=== PATIENT | female | born 1975 | race Caucasian/White ===

== ENCOUNTER 2017-08-15 08:57 | Outpatient (RCR) | payer MEDICAID, SELFPAY ==
[2017-08-15 10:12] VITALS: BP 113/80; PULSE 76; RESP 20; TEMP 36.5
--- NOTE | 2017-08-15 17:49 | PCM.WC.PN ---
Type of Wound Date of Service: 08/15/17 Chief Complaint: Nonhealing recurrent ulcer right medial thigh. History of Wound: 42 year old woman presents with a nonhealing recurrent ulcer right medial thigh. She denies any trauma. She denies any fever. She has pain in the area of the ulcer when it is bumped. She was last seen on 06/19/17 as the ulcer had healed. A wound culture was done on 06/05/17. The culture was negative. Progress of Wound: Recurrent ulcer. - Physical Exam Vital Signs Temp Pulse Resp BP 97.7 F L 76 20 H 113/80 08/15/17 10:12 08/15/17 10:12 08/15/17 10:12 08/15/17 10:12 Wound Measurements and Assessment WC - Nurse 1 - General Ulcer Measurement Start: 08/15/17 10:05 Freq: Status: Active Protocol: Activity Type Activity Date Activity User E-Sign Co-Sign Detail Recorded Client Recorded Date Recorded By Document 08/15/17 10:12 RB [id number] 08/15/17 10:18 RB 08/15/17 10:12 Wound Center Nurse 1 [Ulcer Assessment Protocol: WC.WD.LOC] #3 RT MEDIAL THIGH -Combined with other wound No -Current Size (cm) - Length 3.5 -Current Size (cm) - Width 2.1 -Current Size (cm) - Depth 0.3 -Total Square Cm 7.35 -Photo Taken Yes -Epithelialization Small 1-33% -Tunneling No -Undermining/Tunneling No -Circular Undermining No -Classification - Thickness Full Thickness without Exposed Support Structure -Exudate Amt Small (1-33%) -Exudate Type Serosanguineous -Wound Margin Distinct, Outline Attached -Granulation Amt Medium (34-66%) -Granulation Quality [place] -Necrosis Amt Medium (34-66%) -Necrotic Tissue Type Adherent Slough -Structure Exposed N/A -Texture (Sarah-wound Skin Appearance) Assessed -Moisture (Sarah-wound Skin Appearance Assessed ) -Color (Sarah-wound Skin Appearance) Assessed -Temperature (Sarah-wound Skin No Abnormality Appearance) (Pt Warm) -Tenderness on Palpation (Sarah-wound No Skin Appearance) -Ulcer Cleansing Rinsed/ Irrigated with Saline -Foul Odor after Cleansing No -Anesthetic Used 4% Lidocaine Solution WC - Nurse 2 - General Ulcer CM Notes Start: 08/15/17 10:05 Freq: Status: Active Protocol: Activity Type Activity Date Activity User E-Sign Co-Sign Detail Recorded Client Recorded Date Recorded By Document 08/15/17 11:03 [id number] 08/15/17 11:06 XANDER 08/15/17 11:03 Wound Center Nurse 2 [Procedure/Treatment] -Time 11:05 -Correct Patient Yes -Correct Side, Site, Position Yes -Correct Procedure Yes -Procedure Performed Yes -Type of Procedure Debridement -Clinical Debridement Subcutaneous -Post Debridement Size (cm) - Length 3.5 -Post Debridement Size (cm) - Width 2.2 -Post Debridement Size (cm) - Depth 0.3 -Total Square Cm 7.70 -Wound/Ulcer Outcome Not Healed -Ulcer Cleansing Rinsed/ Irrigated with Saline -Foul Odor after Cleansing No -Bioengineered Tissue No -Cetacaine [place] No -Bleeding Controlled with Pressure -Treatment Response Procedure Tolerated Well [See Physician Procedure note for Specifics] Pain Scale: 0-10 Numeric [Pain] -Is Patient Pain Free? Yes Debridement Note Post-Debridement Measurements/Treatment - Nurse 2 - General Ulcer CM Notes Start: 08/15/17 10:05 Freq: Status: Active Protocol: Activity Type Activity Date Activity User E-Sign Co-Sign Detail Recorded Client Recorded Date Recorded By Document 08/15/17 11:03 [id number] 08/15/17 11:06 XANDER 08/15/17 11:03 Wound Center Nurse 2 #3 RT MEDIAL THIGH -Time 11:05 -Correct Patient Yes -Correct Side, Site, Position Yes -Correct Procedure Yes -Procedure Performed Yes -Type of Procedure Debridement -Clinical Debridement Subcutaneous -Post Debridement Size (cm) - Length 3.5 -Post Debridement Size (cm) - Width 2.2 -Post Debridement Size (cm) - Depth 0.3 -Total Square Cm 7.70 -Wound/Ulcer Outcome Not Healed -Ulcer Cleansing Rinsed/ Irrigated with Saline -Foul Odor after Cleansing No -Bioengineered Tissue No -Cetacaine [place] No -Bleeding Controlled with Pressure -Treatment Response Procedure Tolerated Well Pain Scale: 0-10 Numeric Is Patient Pain Free? Yes Assessment/Plan Assessment: 1. Nonhealing recurrent ulcer right medial thigh. 2. Smoker. Plan: The ulcer has recurred. healed. Restart Silver dressing changes daily. The wound culture from 06/05/17 was negative. Another wound culture was obtained today. A positive culture will necessitate antibiotic therapy. Continue AMAYA wrap for compression. Keep legs elevated when sitting. Encouraged nutritional supplementation with protein to help the healing process. Followup 3 weeks. Encouraged the patient to stop smoking as it may have deleterious effects on wound healing.
--- NOTE | 2017-08-16 23:00 | PN.PCM_ITS ---
Type of Wound Date of Service: 08/15/17 Chief Complaint: Nonhealing recurrent ulcer right medial thigh. History of Wound: 42 year old woman presents with a nonhealing recurrent ulcer right medial thigh. She denies any trauma. She denies any fever. She has pain in the area of the ulcer when it is bumped. She was last seen on 06/19/17 as the ulcer had healed. A wound culture was done on 06/05/17. The culture was negative. Progress of Wound: Recurrent ulcer. - Physical Exam Vital Signs Temp Pulse Resp BP 97.7 F L 76 20 H 113/80 08/15/17 10:12 08/15/17 10:12 08/15/17 10:12 08/15/17 10:12 Wound Measurements and Assessment WC - Nurse 1 - General Ulcer Measurement Start: 08/15/17 10:05 Freq: Status: Active Protocol: Activity Type Activity Date Activity User E-Sign Co-Sign Detail Recorded Client Recorded Date Recorded By Document 08/15/17 10:12 RB [id number] 08/15/17 10:18 RB 08/15/17 10:12 Wound Center Nurse 1 [Ulcer Assessment Protocol: WC.WD.LOC] #3 RT MEDIAL THIGH -Combined with other wound No -Current Size (cm) - Length 3.5 -Current Size (cm) - Width 2.1 -Current Size (cm) - Depth 0.3 -Total Square Cm 7.35 -Photo Taken Yes -Epithelialization Small 1-33% -Tunneling No -Undermining/Tunneling No -Circular Undermining No -Classification - Thickness Full Thickness without Exposed Support Structure -Exudate Amt Small (1-33%) -Exudate Type Serosanguineous -Wound Margin Distinct, Outline Attached -Granulation Amt Medium (34-66%) -Granulation Quality [place] -Necrosis Amt Medium (34-66%) -Necrotic Tissue Type Adherent Slough -Structure Exposed N/A -Texture (Sarah-wound Skin Appearance) Assessed -Moisture (Sarah-wound Skin Appearance Assessed ) -Color ([place]-wound Skin Appearance) Assessed -Temperature (Sarah-wound Skin No Abnormality Appearance) (Pt Warm) -Tenderness on Palpation (Sarah-wound No Skin Appearance) -Ulcer Cleansing Rinsed/ Irrigated with Saline -Foul Odor after Cleansing No -Anesthetic Used 4% Lidocaine Solution WC - Nurse 2 - General Ulcer CM Notes Start: 08/15/17 10:05 Freq: Status: Active Protocol: Activity Type Activity Date Activity User E-Sign Co-Sign Detail Recorded Client Recorded Date Recorded By Document 08/15/17 11:03 [id number] 08/15/17 11:06 XANDER 08/15/17 11:03 Wound Center Nurse 2 [Procedure/Treatment] -Time 11:05 -Correct Patient Yes -Correct Side, Site, Position Yes -Correct Procedure Yes -Procedure Performed Yes -Type of Procedure Debridement -Clinical Debridement Subcutaneous -Post Debridement Size (cm) - Length 3.5 -Post Debridement Size (cm) - Width 2.2 -Post Debridement Size (cm) - Depth 0.3 -Total Square Cm 7.70 -Wound/Ulcer Outcome Not Healed -Ulcer Cleansing Rinsed/ Irrigated with Saline -Foul Odor after Cleansing No -Bioengineered Tissue No -Cetacaine [place] No -Bleeding Controlled with Pressure -Treatment Response Procedure Tolerated Well [See Physician Procedure note for Specifics] Pain Scale: 0-10 Numeric [Pain] -Is Patient Pain Free? Yes Debridement Note Post-Debridement Measurements/Treatment - Nurse 2 - General Ulcer CM Notes Start: 08/15/17 10:05 Freq: Status: Active Protocol: Activity Type Activity Date Activity User E-Sign Co-Sign Detail Recorded Client Recorded Date Recorded By Document 08/15/17 11:03 [id number] 08/15/17 11:06 XANDER 08/15/17 11:03 Wound Center Nurse 2 #3 RT MEDIAL THIGH -Time 11:05 -Correct Patient Yes -Correct Side, Site, Position Yes -Correct Procedure Yes -Procedure Performed Yes -Type of Procedure Debridement -Clinical Debridement Subcutaneous -Post Debridement Size (cm) - Length 3.5 -Post Debridement Size (cm) - Width 2.2 -Post Debridement Size (cm) - Depth 0.3 -Total Square Cm 7.70 -Wound/Ulcer Outcome Not Healed -Ulcer Cleansing Rinsed/ Irrigated with Saline -Foul Odor after Cleansing No -Bioengineered Tissue No -Cetacaine [place] No -Bleeding Controlled with Pressure -Treatment Response Procedure Tolerated Well Pain Scale: 0-10 Numeric Is Patient Pain Free? Yes Assessment/Plan Assessment: 1. Nonhealing recurrent ulcer right medial thigh. 2. Smoker. Plan: The ulcer has recurred. healed. Restart Silver dressing changes daily. The wound culture from 06/05/17 was negative. Another wound culture was obtained today. A positive culture will necessitate antibiotic therapy. Continue AMAYA wrap for compression. Keep legs elevated when sitting. Encouraged nutritional supplementation with protein to help the healing process. Followup 3 weeks. Encouraged the patient to stop smoking as it may have deleterious effects on wound healing.
== END 2017-09-13 23:59 ==
LOC: WC 08:57
PROVIDERS: Family Provider Family Medicine; PCP Family Medicine; Visit Provider Surgery
DX: Z09 Encounter for follow-up examination after completed treatment for conditions other than malignant neoplasm (principal); F17.200 Nicotine dependence, unspecified, uncomplicated; L97.119 Non-pressure chronic ulcer of right thigh with unspecified severity
CPT/HCPCS: 11042; 87070; 87075; 87077; 87186; 87205; 99213; G0463

== ENCOUNTER 2017-10-09 11:00 | Outpatient (RCR) | payer MEDICAID, SELFPAY ==
[2017-07-14 01:03] VITALS: BMI 68.0
[2017-08-15 10:12] VITALS: BP 113/80
[2017-09-14 00:59] VITALS: PULSE 76; RESP 20; TEMP 36.5
[2017-09-18 10:55] VITALS: BP 137/79; PULSE 84; RESP 24; TEMP 36.6; BMI 68.0
--- NOTE | 2017-09-18 21:21 | PCM.WC.PN ---
Type of Wound Date of Service: 09/18/17 Chief Complaint: Nonhealing recurrent ulcer right medial thigh. History of Wound: 42 year old woman presents with a nonhealing recurrent ulcer right medial thigh. She denies any trauma. She denies any fever. She has pain in the area of the ulcer when it is bumped. She was last seen on 06/19/17 as the ulcer had healed. A wound culture was done on 06/05/17. The culture was negative. Progress of Wound: Recurrent ulcer. - Physical Exam Vital Signs Temp Pulse Resp BP 97.8 F 84 24 H 137/79 H 09/18/17 10:55 09/18/17 10:55 09/18/17 10:55 09/18/17 10:55 Debridement Note Post Debridement Measurements #3 Right medial thigh. Subcutaneous debridement. Hemostasis obtained with gentle pressure. Tolerated well. Silver dressing applied. Post debridement measurement - 0.3 x 0.2 x 0.1 cm - (0.06 cm2). Wound debrided: #3 Right medial thigh. Laterality: Right Wound Grade/Stage: 2. Type of Debridement: Excisional debridement Anesthesia Used: 4% Lidocaine Solution Depth: Down to and including healthy tissue, in the subcutaneous layer Percentage of wound debrided: 100 Instrument Used: 3mm curette Tissue Removed: subcutaneous tissue. Severity: Fat Layer Exposed Amount of bleeding with debridement: Mild Bleeding Controlled with: Pressure Patient tolerated procedure well Assessment/Plan Assessment: 1. Nonhealing recurrent ulcer right medial thigh. 2. Smoker. Plan: The ulcer has recurred. healed. Restart Silver dressing changes daily. The wound culture from 06/05/17 was negative. Another wound culture was obtained today. A positive culture will necessitate antibiotic therapy. Continue AMYAA wrap for compression. Keep legs elevated when sitting. Encouraged nutritional supplementation with protein to help the healing process. Followup 3 weeks. Encouraged the patient to stop smoking as it may have deleterious effects on wound healing.
[2017-10-09 11:06] VITALS: BP 142/74; PULSE 90; RESP 18; TEMP 36; BMI 68.0
--- NOTE | 2017-10-09 20:29 | PCM.WC.PN ---
Type of Wound Date of Service: 10/09/17 Chief Complaint: Nonhealing recurrent ulcer right medial thigh. History of Wound: 42 year old woman presents with a nonhealing recurrent ulcer right medial thigh. She denies any trauma. She denies any fever. She has pain in the area of the ulcer when it is bumped. She was last seen on 06/19/17 as the ulcer had healed. A wound culture was done on 06/05/17. The culture was negative. Progress of Wound: Recurrent ulcer. - Physical Exam Vital Signs Temp Pulse Resp BP 96.8 F L 90 18 142/74 H 10/09/17 11:06 10/09/17 11:06 10/09/17 11:06 10/09/17 11:06 Wound Measurements and Assessment WC - Nurse 1 - General Ulcer Measurement Start: 09/18/17 10:54 Freq: Status: Active Protocol: Activity Type Activity Date Activity User E-Sign Co-Sign Detail Recorded Client Recorded Date Recorded By Document 10/09/17 11:06 [id number] 10/09/17 11:12 TM 10/09/17 11:06 Wound Center Nurse 1 [Ulcer Assessment] #3 RT MEDIAL THIGH -Combined with other wound No -Current Size (cm) - Length 0.5 -Current Size (cm) - Width 0.6 -Current Size (cm) - Depth 0.1 -Total Square Cm 0.30 -Photo Taken No -Epithelialization Small 1-33% -Tunneling No -Undermining/Tunneling No -Circular Undermining No -Classification - Thickness Full Thickness without Exposed Support Structure -Exudate Amt Small (1-33%) -Exudate Type Serosanguineous -Wound Margin Distinct, Outline Attached -Granulation Amt Large (67-100%) -Granulation Quality [place] -Slough/Fibrin Yes -Necrosis Amt Small (1-33%) -Necrotic Tissue Type Adherent Slough -Structure Exposed None/Limited to Skin Breakdown -Texture (Sarah-wound Skin Appearance) Localized Edema Scarring -Moisture (Sarah-wound Skin Appearance Dry/Scaly ) -Color (Sarah-wound Skin Appearance) No Abnormality -Temperature (Sarah-wound Skin No Abnormality Appearance) (Pt Warm) -Tenderness on Palpation (Sarah-wound No Skin Appearance) -Ulcer Cleansing Rinsed/ Irrigated with Saline -Foul Odor after Cleansing No -Anesthetic Used 5% Lidocaine Gel [Edema Assessment] -Lower Limb Edema Present No WC - Nurse 2 - General Ulcer CM Notes Start: 09/18/17 10:54 Freq: Status: Active Protocol: Activity Type Activity Date Activity User E-Sign Co-Sign Detail Recorded Client Recorded Date Recorded By Document 10/09/17 11:28 [id number] 10/09/17 11:29 10/09/17 11:28 Wound Center Nurse 2 [Procedure/Treatment] #3 RT MEDIAL THIGH -Time 11:29 -Correct Patient Yes -Correct Side, Site, Position Yes -Correct Procedure Yes -Procedure Performed Yes -Type of Procedure Debridement -Clinical Debridement Subcutaneous -Post Debridement Size (cm) - Length 0.6 -Post Debridement Size (cm) - Width 0.6 -Post Debridement Size (cm) - Depth 0.1 -Total Square Cm 0.36 -Wound/Ulcer Outcome Not Healed -Ulcer Cleansing Rinsed/ Irrigated with Saline -Foul Odor after Cleansing No -Bioengineered Tissue No -Bleeding Controlled with Pressure -Treatment Response Procedure Tolerated Well [See Physician Procedure note for Specifics] Pain Scale: 0-10 Numeric [Pain] -Is Patient Pain Free? Yes Debridement Note Post-Debridement Measurements/Treatment WC - Nurse 2 - General Ulcer CM Notes Start: 09/18/17 10:54 Freq: Status: Active Protocol: Activity Type Activity Date Activity User E-Sign Co-Sign Detail Recorded Client Recorded Date Recorded By Document 10/09/17 11:28 [id number] 10/09/17 11:29 10/09/17 11:28 Wound Center Nurse 2 #3 RT MEDIAL THIGH -Time 11:29 -Correct Patient Yes -Correct Side, Site, Position Yes -Correct Procedure Yes -Procedure Performed Yes -Type of Procedure Debridement -Clinical Debridement Subcutaneous -Post Debridement Size (cm) - Length 0.6 -Post Debridement Size (cm) - Width 0.6 -Post Debridement Size (cm) - Depth 0.1 -Total Square Cm 0.36 -Wound/Ulcer Outcome Not Healed -Ulcer Cleansing Rinsed/ Irrigated with Saline -Foul Odor after Cleansing No -Bioengineered Tissue No -Bleeding Controlled with Pressure -Treatment Response Procedure Tolerated Well Pain Scale: 0-10 Numeric Is Patient Pain Free? Yes Wound debrided: #3 Right medial thigh. Laterality: Right Wound Grade/Stage: 2. Type of Debridement: Excisional debridement Anesthesia Used: 4% Lidocaine Solution Depth: Down to and including healthy tissue, in the subcutaneous layer Percentage of wound debrided: 100 Instrument Used: 3mm curette Tissue Removed: subcutaneous tissue. Severity: Fat Layer Exposed Amount of bleeding with debridement: Mild Bleeding Controlled with: Pressure Patient tolerated procedure well Assessment/Plan Assessment: 1. Nonhealing recurrent ulcer right medial thigh. 2. Smoker. Plan: The ulcer has recurred. healed. Restart Silver dressing changes daily. The wound culture from 06/05/17 was negative. Another wound culture was obtained today. A positive culture will necessitate antibiotic therapy. Continue AMAYA wrap for compression. Keep legs elevated when sitting. Encouraged nutritional supplementation with protein to help the healing process. Followup 3 weeks. Encouraged the patient to stop smoking as it may have deleterious effects on wound healing.
--- NOTE | 2017-10-11 00:10 | PN.PCM_ITS ---
Type of Wound Date of Service: 10/09/17 Chief Complaint: Nonhealing recurrent ulcer right medial thigh. History of Wound: 42 year old woman presents with a nonhealing recurrent ulcer right medial thigh. She denies any trauma. She denies any fever. She has pain in the area of the ulcer when it is bumped. She was last seen on 06/19/17 as the ulcer had healed. A wound culture was done on 06/05/17. The culture was negative. Progress of Wound: Recurrent ulcer. - Physical Exam Vital Signs Temp Pulse Resp BP 96.8 F L 90 18 142/74 H 10/09/17 11:06 10/09/17 11:06 10/09/17 11:06 10/09/17 11:06 Wound Measurements and Assessment WC - Nurse 1 - General Ulcer Measurement Start: 09/18/17 10:54 Freq: Status: Active Protocol: Activity Type Activity Date Activity User E-Sign Co-Sign Detail Recorded Client Recorded Date Recorded By Document 10/09/17 11:06 [id number] 10/09/17 11:12 TM 10/09/17 11:06 Wound Center Nurse 1 [Ulcer Assessment] #3 RT MEDIAL THIGH -Combined with other wound No -Current Size (cm) - Length 0.5 -Current Size (cm) - Width 0.6 -Current Size (cm) - Depth 0.1 -Total Square Cm 0.30 -Photo Taken No -Epithelialization Small 1-33% -Tunneling No -Undermining/Tunneling No -Circular Undermining No -Classification - Thickness Full Thickness without Exposed Support Structure -Exudate Amt Small (1-33%) -Exudate Type Serosanguineous -Wound Margin Distinct, Outline Attached -Granulation Amt Large (67-100%) -Granulation Quality [place] -Slough/Fibrin Yes -Necrosis Amt Small (1-33%) -Necrotic Tissue Type Adherent Slough -Structure Exposed None/Limited to Skin Breakdown -Texture (Sarah-wound Skin Appearance) Localized Edema Scarring -Moisture (Sarah-wound Skin Appearance Dry/Scaly ) -Color (Sarah-wound Skin Appearance) No Abnormality -Temperature (Sarah-wound Skin No Abnormality Appearance) (Pt Warm) -Tenderness on Palpation (Sarah-wound No Skin Appearance) -Ulcer Cleansing Rinsed/ Irrigated with Saline -Foul Odor after Cleansing No -Anesthetic Used 5% Lidocaine Gel [Edema Assessment] -Lower Limb Edema Present No WC - Nurse 2 - General Ulcer CM Notes Start: 09/18/17 10:54 Freq: Status: Active Protocol: Activity Type Activity Date Activity User E-Sign Co-Sign Detail Recorded Client Recorded Date Recorded By Document 10/09/17 11:28 [id number] 10/09/17 11:29 10/09/17 11:28 Wound Center Nurse 2 [Procedure/Treatment] #3 RT MEDIAL THIGH -Time 11:29 -Correct Patient Yes -Correct Side, Site, Position Yes -Correct Procedure Yes -Procedure Performed Yes -Type of Procedure Debridement -Clinical Debridement Subcutaneous -Post Debridement Size (cm) - Length 0.6 -Post Debridement Size (cm) - Width 0.6 -Post Debridement Size (cm) - Depth 0.1 -Total Square Cm 0.36 -Wound/Ulcer Outcome Not Healed -Ulcer Cleansing Rinsed/ Irrigated with Saline -Foul Odor after Cleansing No -Bioengineered Tissue No -Bleeding Controlled with Pressure -Treatment Response Procedure Tolerated Well [See Physician Procedure note for Specifics] Pain Scale: 0-10 Numeric [Pain] -Is Patient Pain Free? Yes Debridement Note Post-Debridement Measurements/Treatment WC - Nurse 2 - General Ulcer CM Notes Start: 09/18/17 10:54 Freq: Status: Active Protocol: Activity Type Activity Date Activity User E-Sign Co-Sign Detail Recorded Client Recorded Date Recorded By Document 10/09/17 11:28 [id number] 10/09/17 11:29 10/09/17 11:28 Wound Center Nurse 2 #3 RT MEDIAL THIGH -Time 11:29 -Correct Patient Yes -Correct Side, Site, Position Yes -Correct Procedure Yes -Procedure Performed Yes -Type of Procedure Debridement -Clinical Debridement Subcutaneous -Post Debridement Size (cm) - Length 0.6 -Post Debridement Size (cm) - Width 0.6 -Post Debridement Size (cm) - Depth 0.1 -Total Square Cm 0.36 -Wound/Ulcer Outcome Not Healed -Ulcer Cleansing Rinsed/ Irrigated with Saline -Foul Odor after Cleansing No -Bioengineered Tissue No -Bleeding Controlled with Pressure -Treatment Response Procedure Tolerated Well Pain Scale: 0-10 Numeric Is Patient Pain Free? Yes Wound debrided: #3 Right medial thigh. Laterality: Right Wound Grade/Stage: 2. Type of Debridement: Excisional debridement Anesthesia Used: 4% Lidocaine Solution Depth: Down to and including healthy tissue, in the subcutaneous layer Percentage of wound debrided: 100 Instrument Used: 3mm curette Tissue Removed: subcutaneous tissue. Severity: Fat Layer Exposed Amount of bleeding with debridement: Mild Bleeding Controlled with: Pressure Patient tolerated procedure well Assessment/Plan Assessment: 1. Nonhealing recurrent ulcer right medial thigh. 2. Smoker. Plan: The ulcer has recurred. healed. Restart Silver dressing changes daily. The wound culture from 06/05/17 was negative. Another wound culture was obtained today. A positive culture will necessitate antibiotic therapy. Continue AMAYA wrap for compression. Keep legs elevated when sitting. Encouraged nutritional supplementation with protein to help the healing process. Followup 3 weeks. Encouraged the patient to stop smoking as it may have deleterious effects on wound healing.
== END 2017-10-11 23:59 ==
LOC: WC 11:00
PROVIDERS: Family Provider Family Medicine; PCP Family Medicine; Visit Provider Surgery
DX: L97.111 Non-pressure chronic ulcer of right thigh limited to breakdown of skin (principal)
CPT/HCPCS: 11042

== ENCOUNTER 2018-02-01 09:51 | Outpatient (RCR) | payer MEDICAID, SELFPAY ==
--- NOTE | 2018-02-01 13:19 | PCM.WC.PN ---
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 History of Wound: 42 year old woman presents with a nonhealing recurrent ulcer right medial thigh. She denies any trauma. She denies any fever. She has pain in the area of the ulcer when it is bumped. She was last seen on 06/19/17 as the ulcer had healed. A wound culture was done on 06/05/17. The culture was negative. Progress of Wound: Improving. - Physical Exam General: Alert, Oriented x3, Cooperative, No apparent distress HEENT: Atraumatic Oral: Moist Mucosa Neck: Supple Lungs: Normal air movement Abdomen: Non Tender, Obese Extremities: No cyanosis Skin: Ulcer/ Wound Musculoskeletal: No Muscle Wasting Neurological: Cranial nerves II-XII grossly intact Psych/Mental Status: Normal Affect Debridement Note Wound debrided: Right Medial Thigh Wound Grade/Stage: Stage II Type of Debridement: Excisional debridement Anesthesia Used: 4% Lidocaine Solution Depth: Down to and including healthy tissue, in the subcutaneous layer Percentage of wound debrided: 100 Instrument Used: 5mm curette Tissue Removed: Slough Severity: Fat Layer Exposed Amount of bleeding with debridement: None Patient tolerated procedure well Assessment/Plan Active Problems Chronic ulcer of right thigh with fat layer exposed (Acute) Assessment: 1. Nonhealing recurrent ulcer right medial thigh. 2. Smoker. Plan: Wound continues to show good improvement. Debridement done as documented above. Procedure was well-tolerated. Continue Promogran with Adaptic over top. Elevate lower extremities when seated. Optimal protein intake. Follow-up in 2 weeks. Advised to call with any questions or concerns. This note was generated with [employer] dictation software. It may contain incorrect words, spelling, and punctuation that were not noted in checking the note before signing.
--- NOTE | 2018-02-01 13:33 | PN.PCM_ITS ---
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 History of Wound: 42 year old woman presents with a nonhealing recurrent ulcer right medial thigh. She denies any trauma. She denies any fever. She has pain in the area of the ulcer when it is bumped. She was last seen on 06/19/17 as the ulcer had healed. A wound culture was done on 06/05/17. The culture was negative. Progress of Wound: Improving. - Physical Exam General: Alert, Oriented x3, Cooperative, No apparent distress HEENT: Atraumatic Oral: Moist Mucosa Neck: Supple Lungs: Normal air movement Abdomen: Non Tender, Obese Extremities: No cyanosis Skin: Ulcer/ Wound Musculoskeletal: No Muscle Wasting Neurological: Cranial nerves II-XII grossly intact Psych/Mental Status: Normal Affect Debridement Note Wound debrided: Right Medial Thigh Wound Grade/Stage: Stage II Type of Debridement: Excisional debridement Anesthesia Used: 4% Lidocaine Solution Depth: Down to and including healthy tissue, in the subcutaneous layer Percentage of wound debrided: 100 Instrument Used: 5mm curette Tissue Removed: Slough Severity: Fat Layer Exposed Amount of bleeding with debridement: None Patient tolerated procedure well Assessment/Plan Active Problems Chronic ulcer of right thigh with fat layer exposed (Acute) Assessment: 1. Nonhealing recurrent ulcer right medial thigh. 2. Smoker. Plan: Wound continues to show good improvement. Debridement done as documented above. Procedure was well-tolerated. Continue Promogran with Adaptic over top. Elevate lower extremities when seated. Optimal protein intake. Follow- up in 2 weeks. Advised to call with any questions or concerns. This note was generated with Meridium dictation software. It may contain incorrect words, spelling, and punctuation that were not noted in checking the note before signing.
== END 2018-02-10 23:59 ==
LOC: WC 09:51
PROVIDERS: Family Provider Family Medicine; PCP Family Medicine; Visit Provider Internal Medicine
DX: L97.112 Non-pressure chronic ulcer of right thigh with fat layer exposed (principal); F17.200 Nicotine dependence, unspecified, uncomplicated
CPT/HCPCS: 11042; 99203; G0463

== ENCOUNTER 2018-03-01 10:30 | Outpatient (RCR) | payer MEDICAID, SELFPAY ==
[2018-02-15 11:16] VITALS: BP 125/51; PULSE 72; RESP 18; TEMP 36.1
--- NOTE | 2018-02-15 11:59 | PCM.WC.PN ---
(1) Chronic ulcer of right thigh with fat layer exposed Status: Acute Current Visit: No Code(s): L97.112 - Non-pressure chronic ulcer of right thigh with fat layer exposed (2) History of tobacco use Status: Chronic Current Visit: No Code(s): Z87.891 - Personal history of nicotine dependence (3) Obesity Status: Chronic Current Visit: No Code(s): E66.9 - Obesity, unspecified Type of Wound Date of Service: 02/15/18 Chief Complaint: Nonhealing recurrent ulcer right medial thigh. History of Wound: 42 year old woman presents with a nonhealing recurrent ulcer right medial thigh. She denies any trauma. She denies any fever. She has pain in the area of the ulcer when it is bumped. She was last seen on 06/19/17 as the ulcer had healed. A wound culture was done on 06/05/17. The culture was negative. Progress of Wound: Improving. - Physical Exam Vital Signs Temp Pulse Resp BP 97 F L 72 18 125/51 H 02/15/18 11:16 02/15/18 11:16 02/15/18 11:16 02/15/18 11:16 General: Alert, Oriented x3, Cooperative, No apparent distress HEENT: Atraumatic Oral: Moist Mucosa Neck: Supple Lungs: Normal air movement Abdomen: Soft, Non Tender, Obese Extremities: No cyanosis Skin: Ulcer/ Wound Wound Measurements and Assessment WC - Nurse 1 - General Ulcer Measurement Start: 02/15/18 11:15 Freq: Status: Active Protocol: Activity Type Activity Date Activity User E-Sign Co-Sign Detail Recorded Client Recorded Date Recorded By Document 02/15/18 11:16 [id number] 02/15/18 11:17 RB 02/15/18 11:16 Wound Center Nurse 1 [Ulcer Assessment] #3 RT MEDIAL THIGH -Combined with other wound No -Current Size (cm) - Length 0.6 -Current Size (cm) - Width 0.5 -Current Size (cm) - Depth 0.1 -Total Square Cm 0.30 -Photo Taken No -Tunneling No -Undermining/Tunneling No -Circular Undermining No -Classification - Thickness Full Thickness without Exposed Support Structure -Exudate Amt Small (1-33%) -Exudate Type Serosanguineous -Wound Margin Distinct, Outline Attached -Granulation Amt Large (67-100%) -Granulation Quality [place] -Necrosis Amt Small (1-33%) -Necrotic Tissue Type Adherent Slough -Structure Exposed N/A -Texture (Sarah-wound Skin Appearance) Assessed -Moisture (Sarah-wound Skin Appearance Assessed ) -Color (Sarah-wound Skin Appearance) Assessed -Temperature (Sarah-wound Skin No Abnormality Appearance) (Pt Warm) -Tenderness on Palpation (Sarah-wound No Skin Appearance) -Ulcer Cleansing Rinsed/ Irrigated with Saline -Foul Odor after Cleansing No -Anesthetic Used 5% Lidocaine Gel Musculoskeletal: No Muscle Wasting Neurological: Cranial nerves II-XII grossly intact Psych/Mental Status: Normal Affect Debridement Note Wound debrided: Right Thigh ( medial ) Wound Grade/Stage: Stage II Type of Debridement: Excisional debridement Anesthesia Used: 5% Lidocaine Gel Depth: Down to and including healthy tissue, in the subcutaneous layer Percentage of wound debrided: 100 Instrument Used: 3mm curette Tissue Removed: Devitalized tissue and biofilm Severity: Fat Layer Exposed Amount of bleeding with debridement: Mild Bleeding Controlled with: Pressure Patient tolerated procedure well Assessment/Plan Assessment: 1. Nonhealing recurrent ulcer right medial thigh. 2. Smoker. Plan: Stable wound. No new complaints at this time. Debridement done as documented above. Procedure was well-tolerated. Continue Promogran with Adaptic over top. Elevate lower extremities when seated. Optimal protein intake. Follow-up in 1 week. Advised to call with any questions or concerns. This note was generated with [employer] dictation software. It may contain incorrect words, spelling, and punctuation that were not noted in checking the note before signing.
[2018-02-22 11:30] VITALS: BP 119/70; PULSE 66; RESP 16; TEMP 36
--- NOTE | 2018-02-22 12:21 | PN.PCM_ITS ---
(1) Chronic ulcer of right thigh with fat layer exposed Status: Acute Current Visit: Yes Code(s): L97.112 - Non-pressure chronic ulcer of right thigh with fat layer exposed (2) History of tobacco use Status: Chronic Current Visit: No Code(s): Z87.891 - Personal history of nicotine dependence (3) Obesity Status: Chronic Current Visit: Yes Code(s): E66.9 - Obesity, unspecified Type of Wound Date of Service: 02/22/18 Chief Complaint: Nonhealing recurrent ulcer right medial thigh. History of Wound: 42 year old woman presents with a nonhealing recurrent ulcer right medial thigh. She denies any trauma. She denies any fever. She has pain in the area of the ulcer when it is bumped. She was last seen on 06/19/17 as the ulcer had healed. A wound culture was done on 06/05/17. The culture was negative. Progress of Wound: Improving. - Physical Exam Vital Signs Temp Pulse Resp BP 96.8 F L 66 16 119/70 02/22/18 11:30 02/22/18 11:30 02/22/18 11:30 02/22/18 11:30 General: Alert, Oriented x3, Cooperative, No apparent distress HEENT: Atraumatic Oral: Moist Mucosa Neck: Supple Lungs: Normal air movement Abdomen: Soft, Non Tender, Obese Skin: Ulcer/ Wound Wound Measurements and Assessment WC - Nurse 1 - General Ulcer Measurement Start: 02/15/18 11:15 Freq: Status: Active Protocol: Activity Type Activity Date Activity User E-Sign Co-Sign Detail Recorded Client Recorded Date Recorded By Document 02/22/18 11:30 [facility] [id number] 02/22/18 11:38 [facility] 02/22/18 11:30 Wound Center Nurse 1 [Ulcer Assessment] #3 RT MEDIAL THIGH -Combined with other wound No -Current Size (cm) - Length 0.3 -Current Size (cm) - Width 0.4 -Current Size (cm) - Depth 0.1 -Total Square Cm 0.12 -Date of Last Picture (Recall this 02/22/18 field) -Photo Taken Yes -Epithelialization Medium 34-66% -Tunneling No -Undermining/Tunneling No -Circular Undermining No -Exudate Amt Small (1-33%) -Exudate Type Serosanguineous -Wound Margin Distinct, Outline Attached -Granulation Amt Medium (34-66%) -Granulation Quality Red -Slough/Fibrin Yes -Necrosis Amt Small (1-33%) -Necrotic Tissue Type Adherent Slough -Structure Exposed None/Limited to Skin Breakdown -Texture (Sarah-wound Skin Appearance) Scarring -Moisture (Sarah-wound Skin Appearance Dry/Scaly ) -Color (Sarah-wound Skin Appearance) Assessed -Temperature (Sarah-wound Skin No Abnormality Appearance) (Pt Warm) -Tenderness on Palpation (Sarah-wound No Skin Appearance) -Ulcer Cleansing Rinsed/ Irrigated with Saline -Foul Odor after Cleansing No -Anesthetic Used 4% Lidocaine Solution Musculoskeletal: No Muscle Wasting Neurological: Cranial nerves II-XII grossly intact Psych/Mental Status: Normal Affect Debridement Note Post-Debridement Measurements/Treatment WC - Nurse 2 - General Ulcer CM Notes Start: 02/15/18 11:15 Freq: Status: Active Protocol: Activity Type Activity Date Activity User E-Sign Co-Sign Detail Recorded Client Recorded Date Recorded By Document 02/15/18 12:00 TERRY [id number] 02/15/18 12:01 TERRY 02/15/18 12:00 Wound Center Nurse 2 #3 RT MEDIAL THIGH -Time 12:00 -Correct Patient Yes -Correct Side, Site, Position Yes -Correct Procedure Yes -Procedure Performed Yes -Type of Procedure Debridement -Clinical Debridement Subcutaneous -Post Debridement Size (cm) - Length 0.4 -Post Debridement Size (cm) - Width 0.2 -Post Debridement Size (cm) - Depth 0.1 -Total Square Cm 0.08 -Wound/Ulcer Outcome Not Healed -Ulcer Cleansing Rinsed/ Irrigated with Saline -Foul Odor after Cleansing No -Bioengineered Tissue No -Topical Lidocaine (%) 4 -Lidocaine (ml) 5 -Bleeding Controlled with NA -Treatment Response Procedure Tolerated Well Pain Scale: 0-10 Numeric Is Patient Pain Free? Yes Wound debrided: Right thigh Wound Grade/Stage: Stage II Type of Debridement: Selective debridement Anesthesia Used: 4% Lidocaine Solution Depth: Down to and including healthy tissue Percentage of wound debrided: 90 Instrument Used: 3mm curette Tissue Removed: Devitalized tissue Severity: Limited To Skin Breakdown Amount of bleeding with debridement: None Patient tolerated procedure well Assessment/Plan Active Problems Chronic ulcer of right thigh with fat layer exposed (Acute) Obesity (Chronic) Assessment: 1. Nonhealing recurrent ulcer right medial thigh. 2. Smoker. Plan: Almost healed. Debridement done as documented above. Procedure was well- tolerated. Continue Promogran with Adaptic over top. Elevate lower extremities when seated. Optimal protein intake. Follow-up in 1 week. Advised to call with any questions or concerns. This note was generated with [employer] dictation software. It may contain incorrect words, spelling, and punctuation that were not noted in checking the note before signing.
[2018-03-01 11:43] VITALS: BP 137/68; PULSE 70; RESP 16; TEMP 35.5
--- NOTE | 2018-03-01 12:13 | PN.PCM_ITS ---
(1) Chronic ulcer of right thigh with fat layer exposed Status: Acute Current Visit: Yes Code(s): L97.112 - Non-pressure chronic ulcer of right thigh with fat layer exposed (2) History of tobacco use Status: Chronic Current Visit: No Code(s): Z87.891 - Personal history of nicotine dependence (3) Obesity Status: Chronic Current Visit: Yes Code(s): E66.9 - Obesity, unspecified Type of Wound Date of Service: 03/01/18 Chief Complaint: Nonhealing recurrent ulcer right medial thigh. History of Wound: 42 year old woman presents with a nonhealing recurrent ulcer right medial thigh. She denies any trauma. She denies any fever. She has pain in the area of the ulcer when it is bumped. She was last seen on 06/19/17 as the ulcer had healed. A wound culture was done on 06/05/17. The culture was negative. Progress of Wound: Healed. - Physical Exam Vital Signs Temp Pulse Resp BP 96 F L 70 16 137/68 H 03/01/18 11:43 03/01/18 11:43 03/01/18 11:43 03/01/18 11:43 General: Alert, Oriented x3, Cooperative, No apparent distress HEENT: Atraumatic Oral: Moist Mucosa Neck: Supple Lungs: Normal air movement Abdomen: Obese Extremities: No cyanosis Wound Measurements and Assessment WC - Nurse 1 - General Ulcer Measurement Start: 02/15/18 11:15 Freq: Status: Active Protocol: Activity Type Activity Date Activity User E-Sign Co-Sign Detail Recorded Client Recorded Date Recorded By Document 03/01/18 11:43 [facility] [id number] 03/01/18 11:51 [facility] 03/01/18 11:43 Wound Center Nurse 1 [Ulcer Assessment] #3 RT MEDIAL THIGH -Combined with other wound No -Current Size (cm) - Length 0.1 -Current Size (cm) - Width 0.1 -Current Size (cm) - Depth 0.1 -Total Square Cm 0.01 -Epithelialization Large 67-100% Musculoskeletal: No Muscle Wasting Neurological: Cranial nerves II-XII grossly intact Psych/Mental Status: Normal Affect Debridement Note Post-Debridement Measurements/Treatment WC - Nurse 2 - General Ulcer CM Notes Start: 02/15/18 11:15 Freq: Status: Active Protocol: Activity Type Activity Date Activity User E-Sign Co-Sign Detail Recorded Client Recorded Date Recorded By Document 02/15/18 12:00 TERRY [id number] 02/15/18 12:01 TERRY 02/15/18 12:00 Wound Center Nurse 2 #3 RT MEDIAL THIGH -Time 12:00 -Correct Patient Yes -Correct Side, Site, Position Yes -Correct Procedure Yes -Procedure Performed Yes -Type of Procedure Debridement -Clinical Debridement Subcutaneous -Post Debridement Size (cm) - Length 0.4 -Post Debridement Size (cm) - Width 0.2 -Post Debridement Size (cm) - Depth 0.1 -Total Square Cm 0.08 -Wound/Ulcer Outcome Not Healed -Ulcer Cleansing Rinsed/ Irrigated with Saline -Foul Odor after Cleansing No -Bioengineered Tissue No -Topical Lidocaine (%) 4 -Lidocaine (ml) 5 -Bleeding Controlled with NA -Treatment Response Procedure Tolerated Well Pain Scale: 0-10 Numeric Is Patient Pain Free? Yes No debridement was completed today Assessment/Plan Active Problems Chronic ulcer of right thigh with fat layer exposed (Acute) Obesity (Chronic) Assessment: 1. Nonhealing recurrent ulcer right medial thigh. 2. Smoker. Plan: Essentially healed. Mild scaring. Apply adaptic over top. Change daily. Continue increased protein intake. Follow-up in 2 weeks. Advised to call with any questions or concerns. This note was generated with [employer] software. It may contain incorrect words, spelling, and punctuation that were not noted in checking the note before signing.
== END 2018-03-13 23:59 ==
LOC: WC 10:30
PROVIDERS: Family Provider Family Medicine; PCP Family Medicine; Visit Provider Internal Medicine
DX: L97.112 Non-pressure chronic ulcer of right thigh with fat layer exposed (principal); F17.200 Nicotine dependence, unspecified, uncomplicated
CPT/HCPCS: 11042; 97597; 99212; G0463

== ENCOUNTER 2018-03-14 10:25 | Outpatient (RCR) | payer MEDICAID, SELFPAY ==
[2018-03-14 00:18] VITALS: BP 137/68; PULSE 70; RESP 16; TEMP 35.5
[2018-03-14 11:18] VITALS: BP 129/81; PULSE 75; RESP 16; TEMP 36.2
--- NOTE | 2018-03-14 11:30 | PCM.WC.PN ---
(1) Chronic ulcer of right thigh with fat layer exposed Status: Acute Current Visit: Yes Code(s): L97.112 - Non-pressure chronic ulcer of right thigh with fat layer exposed (2) Obesity Status: Chronic Current Visit: Yes Code(s): E66.9 - Obesity, unspecified Type of Wound Date of Service: 03/14/18 Chief Complaint: Nonhealing recurrent ulcer right medial thigh. History of Wound: 42 year old woman presents with a nonhealing recurrent ulcer right medial thigh. She denies any trauma. She denies any fever. She has pain in the area of the ulcer when it is bumped. She was last seen on 06/19/17 as the ulcer had healed. A wound culture was done on 06/05/17. The culture was negative. Progress of Wound: Healed. - Physical Exam Vital Signs Temp Pulse Resp BP 97.1 F L 75 16 129/81 H 03/14/18 11:18 03/14/18 11:18 03/14/18 11:18 03/14/18 11:18 General: Alert, Oriented x3, Cooperative, No apparent distress HEENT: Atraumatic Oral: Moist Mucosa Neck: Supple Lungs: Normal air movement Cardiovascular: Regular rate Abdomen: Soft, Obese Wound Measurements and Assessment WC - Nurse 1 - General Ulcer Measurement Start: 03/14/18 11:16 Freq: Status: Active Protocol: Activity Type Activity Date Activity User E-Sign Co-Sign Detail Recorded Client Recorded Date Recorded By Document 03/14/18 11:18 CS [id number] 03/14/18 11:21 CS 03/14/18 11:18 Wound Center Nurse 1 [Ulcer Assessment] #3 RT MEDIAL THIGH -Combined with other wound No -Current Size (cm) - Length 0.1 -Current Size (cm) - Width 0.1 -Current Size (cm) - Depth 0.1 -Total Square Cm 0.01 -Date of Last Picture (Recall this 03/14/18 field) -Photo Taken Yes -Epithelialization Large 67-100% [Edema Assessment] -Lower Limb Edema Present NA WC - Nurse 2 - General Ulcer CM Notes Start: 03/14/18 11:16 Freq: Status: Active Protocol: Activity Type Activity Date Activity User E-Sign Co-Sign Detail Recorded Client Recorded Date Recorded By Document 03/14/18 11:28 MW [id number] 03/14/18 11:30 03/14/18 11:28 Wound Center Nurse 2 [Procedure/Treatment] #3 RT MEDIAL THIGH -Time 11:28 -Correct Patient Yes -Correct Side, Site, Position Yes -Correct Procedure Yes -Procedure Performed No -Post Debridement Size (cm) - Length 0 -Post Debridement Size (cm) - Width 0 -Post Debridement Size (cm) - Depth 0 -Total Square Cm 0 -Wound/Ulcer Outcome Healed- Epithelialized -Ulcer Cleansing Not Cleansed -Foul Odor after Cleansing No -Bleeding Controlled with NA -Treatment Response Procedure Tolerated Well [See Physician Procedure note for Specifics] Pain Scale: 0-10 Numeric [Pain] -Is Patient Pain Free? Yes Musculoskeletal: No Muscle Wasting Neurological: Cranial nerves II-XII grossly intact Psych/Mental Status: Normal Affect Debridement Note Post-Debridement Measurements/Treatment WC - Nurse 2 - General Ulcer CM Notes Start: 03/14/18 11:16 Freq: Status: Active Protocol: Activity Type Activity Date Activity User E-Sign Co-Sign Detail Recorded Client Recorded Date Recorded By Document 03/14/18 11:28 [id number] 03/14/18 11:30 03/14/18 11:28 Wound Center Nurse 2 #3 RT MEDIAL THIGH -Time 11:28 -Correct Patient Yes -Correct Side, Site, Position Yes -Correct Procedure Yes -Procedure Performed No -Post Debridement Size (cm) - Length 0 -Post Debridement Size (cm) - Width 0 -Post Debridement Size (cm) - Depth 0 -Total Square Cm 0 -Wound/Ulcer Outcome Healed- Epithelialized -Ulcer Cleansing Not Cleansed -Foul Odor after Cleansing No -Bleeding Controlled with NA -Treatment Response Procedure Tolerated Well Pain Scale: 0-10 Numeric Is Patient Pain Free? Yes No debridement was completed today Assessment/Plan Active Problems Chronic ulcer of right thigh with fat layer exposed (Acute) Obesity (Chronic) Assessment: 1. Nonhealing recurrent ulcer right medial thigh. 2. Smoker. Plan: Healed. Continue adaptic over top. Change daily for 2 weeks. Advised to always keep area protected. Continue increased protein intake. Discharged from the wound center. Advised to call with any questions or concerns. This note was generated with Packetzoomation software. It may contain incorrect words, spelling, and punctuation that were not noted in checking the note before signing.
== END 2018-04-13 23:59 ==
LOC: WC 10:25
PROVIDERS: Family Provider Family Medicine; PCP Family Medicine; Visit Provider Internal Medicine
DX: Z09 Encounter for follow-up examination after completed treatment for conditions other than malignant neoplasm (principal); E66.9 Obesity, unspecified; Z71.3 Dietary counseling and surveillance
CPT/HCPCS: 99212; G0463

== ENCOUNTER 2018-04-13 21:54 | Emergency (ER) | payer MEDICAID, SELFPAY ==
[2018-04-13 21:58] VITALS: BP 107/74; PULSE 77; RESP 14; TEMP 36.8; O2SAT 95; BMI 67.8
[2018-04-13 22:07] VITALS: PULSE 78; RESP 18; O2SAT 94
--- NOTE | 2018-04-13 22:36 | ED.VISSUMM ---
- ER Visit Summary Date of Service: 04/13/18 Chief Complaint: Syncope History of Present Illness: The patient is a 43 F syncopal episode this evening prior to arrival. Reported walking out to the car for cigarette after supper. Started feeling tingling in the feet and legs, nauseated. Daughter reports breathing fast. Patient states that tingling around the lips. Reported witnessed syncopal episodes. Denies any prodromal chest pains or shortness of breath. However states has some discomfort after awakening. No palpitations or racing heart. Patient started a new IBS medicine a week ago, Verberzi, by PCP. Reports her second twice a day, became constipated and sleepy, this was stopped, loose stools restarted, now back on it daily. No recent cough. No urinary symptoms. No further complaints. Physical Examination: General: Alert and oriented ?3, no acute distress HEENT: Normocephalic, atraumatic. Moist mucosa membranes Neck: supple, nontender. Cardiovascular: Regular rate and rhythm, no murmurs Respiratory: Normal breath sounds, symmetric, no distress Abdomen: Soft, nontender, nondistended Extremities: Nontender, lymphedema bilateral lower extremities, pulses intact ?4 Neuro: no focal neurological deficits. Cranial nerves II through XII intact. Test Results: EKG sinus rate of [address] or T-wave changes. QTc is 479. Hemoglobin 12.2. Potassium 3.3. Creatinine 0.86. Troponin negative. Urine noted 25 leukocytes, negative nitrites or white blood cell counts. Chest x-ray negative. Emergency Department Course and Treatment: Patient's reported history concerns for vasovagal syncope. Prodromal symptoms. EKG normal. Workup labs noted potassium 3.2. She is given 40 potassium in the ED. She is on a diuretic. Patient complaining of atypical chest symptoms, cardiac workup initiated which was negative. She was ambulated in the department after workup was stable. Discussed with patient monitor symptoms follow her PCP for further workup as an outpatient. Signs and symptoms discussed return. Patient given 7 days of potassium for replacement due to being on a diuretic. All questions were answered. Treatment Plan: [] Disposition: Discharge Impression: 1. Syncope 2. Hypokalemia 3. Atypical chest pain This note was generated with [employer]ation software. It may contain incorrect words, spelling, and punctuation that were not noted in review of the chart prior to signing ED Disposition - Plan for ED Patient: Disposition: Home or Assisted Living Chief Complaint: Syncope Diagnosis: Syncope, Hypokalemia, Atypical chest pain Instructions: ED Syncope Vasovagal, ED Chest Pain Atypical Unkn Cause Prescriptions: Potassium Chloride 10 meq PO DAILY #7 tablet.er Referrals: Geovanny Nesbitt DO [Primary Care Provider] - 3-5 Days
[2018-04-13 22:53] LABS: Absolute Lymphocyte Count 2.94 X10^3/ul (0.83-4.51); Absolute Neutrophil Count 6.8 X10^3/uL (2.0-7.7); Basophil# 0.05 X10^3/uL; Basophil% 0.5 % (0-1); Eosinophil# 0.19 X10^3/uL; Eosinophils% 1.8 % (0-5); Hematocrit 39.6 % (37-47); Hemoglobin 12.2 g/dl (12.0-15.0); Lymphocyte # 2.94 X10^3/ul (4.0); Lymphocyte % 27.3 % (19-41); Mean Corp Hgb Conc 30.8 g/gl (32-36); Mean Corpuscular Hgb 28.4 pg (27.0-32.0); Mean Corpuscular Volume 92.3 fL (81-99); Mean Platelet Vol. 11.7 fl (6.2-12.0); Monocyte# 0.79 X10^3/uL; Monocyte% 7.3 % (0-10); Neutrophil # 6.78 X10^3/uL (2.7-7.7); Neutrophil % 62.9 % (47-70); POSITIVE COUNT NO; POSITIVE DIFFERENTIAL NO; POSITIVE MORPHOLOGY NO; Platelet Count 260 K/mm3 (150-450); RBC Distribution Width CV 16.8 % (11.6-14.6); RBC Distribution Width SD 56.2 fl (35.1-43.9); Red Blood Count 4.29 M/mm3 (4.2-5.4); White Blood Count 10.8 K/mm3 (4.4-11.0)
[2018-04-13 23:00] LABS: Anion Gap 10 (5-15); BUN 13 mg/dL (7-18); BUN/Creat Ratio 15.1 RATIO (10-20); Calcium,Total 8.5 mg/dL (8.5-10.1); Chloride 102 mmol/L (98-107); Creatinine, Serum 0.86 mg/dL (0.55-1.02); EST Glomerular Filtration Rate 76 mL/min (>60); Est Glom Filt Rate - Afr Amer 92 mL/min (>60); Estimated Creatinine Clearance 66.02 ml/min; Glucose 101 mg/dL (74-106); Potassium 3.2 mmol/L (3.5-5.1); Sodium Level 140 mmol/L (136-145)
[2018-04-13 23:44] LABS: Bacteria 0 SEEN /hpf (None Seen); Red Blood Cells-Urine 0 SEEN /hpf (0-5); Squamous Epithelial Cells - UA 0 SEEN /hpf (5-10)
[2018-04-13] MEDS: Acetaminophen 500 MG Tablet 1000 MG PO (23:49)
[2018-04-13 23:54] LABS: Color, Urine Amber (Yellow); Glucose, Dipstick Normal (Normal); Ketone-Dipstick 5 mg/dl (Negative); Leukocyte Esterase-Dipstick 25 /ul (Negative); Nitrite-Dipstick Negative (Negative); Occult Blood-Urine 10 /ul (Negative); Protein-Dipstick 30 mg/dl (Negative); Urine Clarity Clear (Clear); Urine Urobilinogen 4 mg/dl (Normal)
[2018-04-14] VITALS: BP 102/75; PULSE 71; RESP 15; O2SAT 98
[2018-04-14 00:04] LABS: Urine Bilirubin Dipstick 3 mg/dL (Negative)
[2018-04-14 00:13] LABS: Mucous, Urine RARE /hpf (<or=2+); White Blood Cells 0-5 SEEN /hpf (0-5)
[2018-04-14 01:13] VITALS: BP 112/79; PULSE 78; RESP 18; O2SAT 97
== END 2018-04-14 01:15 | disposition home or self-care (01) ==
PROVIDERS: Emergency Provider Emergency Medicine; Family Provider Family Medicine; PCP Family Medicine
DX: R55 Syncope and collapse (principal); E87.6 Hypokalemia; R07.89 Other chest pain; I10 Essential (primary) hypertension; K21.9 Gastro-esophageal reflux disease without esophagitis; E03.9 Hypothyroidism, unspecified; Z72.0 Tobacco use
CPT/HCPCS: 71046; 80048; 81001; 84484; 85025; 93005; 99285; J7040; P9612

== ENCOUNTER 2018-06-15 13:50 | Emergency (ER) | payer MEDICAID, SELFPAY ==
[2018-06-15 13:51] VITALS: BP 134/85; PULSE 91; RESP 20; TEMP 36.9; O2SAT 98; BMI 63.6
--- NOTE | 2018-06-15 14:13 | ED.DCSUM_ITS ---
- ER Visit Summary Date of Service: 06/15/18 Chief Complaint: Left knee pain History of Present Illness: The patient is a 43 F who presents with left knee pain. Is been painful for 6 days. She denies any injuries or falls. The pain is worse when she walks on it. She takes chronic Mobic for back issues. She states it works for about 3 hours but then it wears off. No previous left knee issues in the past. She denies any swelling. No fevers. No history of DVT Physical Examination: Vital signs reviewed. BMI 63. Left knee exam reveals tenderness to palpation in the inferior medial left knee. She has painful range of motion. No swelling. No calf tenderness. Skin is normal in that area. Test Results: X-rays reveal chronic changes Emergency Department Course and Treatment: Patient was given Toradol. I will give her Dolobid for home. She will ice. I will give her orthopedic follow-up. Treatment Plan: [] Disposition: Discharge Impression: Left knee pain This note was generated with Jaspersoft dictation software. It may contain incorrect words, spelling, and punctuation that were not noted in review of the chart prior to signing ED Disposition - Plan for ED Patient: Chief Complaint: Lower Extremity Injury Referrals: Geovanny Nesbitt DO [Primary Care Provider] -
--- NOTE | 2018-06-15 14:22 | RAD_ITS ---
STUDY: X-RAY - LEFT KNEE REASON FOR EXAM: Female, 43 years old. Severe pain. No history of trauma. TECHNIQUE: 3 view(s) of the knee. COMPARISON: Comparison is made with prior study dated March 28, 2012. FINDINGS: There is deformity of the distal femur with widening. There is evidence of an osteochondroma arising from the medial aspect of the junction of the diaphysis and metaphysis. An osteochondroma is also seen in the posterior aspect of the tibia. Normal proximal tibiofibular articulation. There is moderate degenerative arthrosis of the medial femorotibial compartment with moderate joint space narrowing. Normal lateral femorotibial compartment. There is moderate degenerative arthrosis of the patellofemoral articulation. Diffuse soft tissue swelling. RAD/Knee 3 Views IMPRESSION: Degenerative arthrosis. 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 Electronically Signed: Heron Larsen MD at 14:45 EDT Tel [phone], Service support ,
[2018-06-15] MEDS: Ketorolac 60 MG/2 ML Vial IM (14:44)
--- NOTE | 2018-06-15 14:58 | ED.DEP ---
ED Disposition - Plan for ED Patient: Disposition: Home or Assisted Living Chief Complaint: Lower Extremity Injury Instructions: ED Knee Pain [facility] Prescriptions: Diflunisal [Dolobid] 500 mg PO TID #15 tab Referrals: Geovanny Nesbitt DO [Primary Care Provider] -
== END 2018-06-15 15:31 | disposition home or self-care (01) ==
PROVIDERS: Emergency Provider Emergency Medicine; Family Provider Family Medicine; PCP Family Medicine
DX: M25.562 Pain in left knee (principal); K21.9 Gastro-esophageal reflux disease without esophagitis; Z72.0 Tobacco use
CPT/HCPCS: 73562; 96372; 99283

== ENCOUNTER → 2019-09-16 15:23 | Outpatient (CLI) | payer MEDICAID, SELFPAY ==
[2019-09-16 15:23] VITALS: BMI 68.0
[2019-09-16 15:43] LABS: Absolute Lymphocyte Count 2.61 X10^3/uL (0.83-4.51); Eosinophil# 0.14 X10^3/uL; Eosinophils% 1.3 % (0-5); Hematocrit 46.1 % (37-47); Hemoglobin 14.3 g/dL (12.0-15.0); Lymphocyte # 2.61 X10^3/ul (4.0); Mean Corpuscular Hgb 30.4 pg (27.0-32.0); Mean Corpuscular Volume 98.1 fL (81-99); Mean Platelet Vol. 11.8 fl (6.2-12.0); Monocyte# 0.54 X10^3/uL; Monocyte% 5.2 % (0-10); NRBC Flagged by Analyzer 0 % (0-5); Neutrophil # 6.99 X10^3/uL (2.7-7.7); Platelet Count 319 K/mm3 (150-450); RBC Distribution Width CV 14.6 % (11.6-14.6); RBC Distribution Width SD 52.5 fl (35.1-43.9); White Blood Count 10.4 K/mm3 (4.4-11.0)
[2019-09-16 15:49] LABS: ALB/GLOB Ratio 0.8 RATIO (0.9-2.4); AST(SGOT) 13 U/L (15-37); Alanine Aminotransfer ALT/SGPT 27 U/L (13-56); Albumin, Serum 3.3 g/dL (3.2-5.0); Alkaline Phosphatase 93 U/L (45-117); Anion Gap 3 (5-15); BUN 8 mg/dL (7-18); BUN/Creat Ratio 9.8 RATIO (10-20); Calcium,Total 9.3 mg/dL (8.5-10.1); Chloride 103 mmol/L (98-107); Creatinine, Serum 0.82 mg/dL (0.55-1.02); EST Glomerular Filtration Rate 80 mL/min (>60); Est Glom Filt Rate - Afr Amer 97 mL/min (>60); Globulin 4.4 g/dL (2.2-4.2); Glucose 110 mg/dL (74-106); Potassium 4.2 mmol/L (3.5-5.1); Protein, Total 7.7 g/dL (6.4-8.2); Sodium Level 138 mmol/L (136-145); Thyroid Stim Hormone (TSH) 0.74 uIU/mL (0.358-3.74)
== END ==
PROVIDERS: PCP Family Medicine; Visit Provider Family Medicine
DX: E03.9 Hypothyroidism, unspecified (principal); I10 Essential (primary) hypertension
CPT/HCPCS: 36415; 80053; 84443; 85025

== ENCOUNTER → 2020-11-20 10:57 | Outpatient (CLI) | payer MEDICAID, SELFPAY ==
[2019-09-16 15:23] VITALS: BMI 68.0
[2020-11-20 12:37] LABS: Absolute Lymphocyte Count 2.58 X10^3/uL (0.83-4.51); Absolute Neutrophil Count 5.2 X10^3/uL (2.0-7.7); Basophil# 0.07 X10^3/uL; Basophil% 0.8 % (0-1); Eosinophil# 0.47 X10^3/uL; Eosinophils% 5.3 % (0-5); Hematocrit 43.5 % (37-47); Hemoglobin 13.5 g/dL (12.0-15.0); Lymphocyte # 2.58 X10^3/ul (4.0); Lymphocyte % 28.9 % (19-41); Mean Corpuscular Hgb 29.6 pg (27.0-32.0); Mean Corpuscular Volume 95.4 fL (81-99); Mean Platelet Vol. 11.3 fl (6.2-12.0); Monocyte# 0.56 X10^3/uL; Monocyte% 6.3 % (0-10); NRBC Flagged by Analyzer 0 % (0-5); Neutrophil # 5.21 X10^3/uL (2.7-7.7); Neutrophil % 58.1 % (47-70); Platelet Count 319 K/mm3 (150-450); RBC Distribution Width CV 14.7 % (11.6-14.6); Red Blood Count 4.56 M/mm3 (4.2-5.4); White Blood Count 8.9 K/mm3 (4.4-11.0)
[2020-11-20 13:27] LABS: Anion Gap 3 (5-15); BUN 11 mg/dL (7-18); BUN/Creat Ratio 15.7 RATIO (10-20); Calcium,Total 9.1 mg/dL (8.5-10.1); Chloride 104 mmol/L (98-107); EST Glomerular Filtration Rate 95 mL/min (>60); Est Glom Filt Rate - Afr Amer 115 mL/min (>60); Glucose 92 mg/dL (74-106); Potassium 3.8 mmol/L (3.5-5.1); Sodium Level 138 mmol/L (136-145); Thyroid Stim Hormone (TSH) 1.05 uIU/mL (0.358-3.74)
== END ==
PROVIDERS: PCP Family Medicine; Referring Provider Family Medicine; Visit Provider Family Medicine
DX: E03.9 Hypothyroidism, unspecified (principal); K21.9 Gastro-esophageal reflux disease without esophagitis; K58.0 Irritable bowel syndrome with diarrhea
CPT/HCPCS: 36415; 80048; 84443; 85025

== ENCOUNTER 2021-05-11 11:22 | Day surgery (SDC) | payer MEDICAID, SELFPAY ==
[2021-05-11 11:47] VITALS: BP 109/79; PULSE 62; RESP 18; TEMP 36.5; O2SAT 100; BMI 58.0
[2021-05-11] MEDS: Lactated Ringers 1,000 ML 100 ML IV (12:09)
--- NOTE | 2021-05-11 12:30 | EGD_PTH ---
PATIENT: MITCHELL BHATT LOC: [facility] U#:[id number] AGE/SX: 46/F ROOM: RE05/11/[address]: Dr. Juan Bueno DO : 1975 BED: DIS: 05/11/2021 SPEC #: [id number] RECD: 05/11/21 14:35 STATUS: TRISTEN NEAL #: [id number] TYRA: 05/11/21 12:[address]: Juan Bueno DEPT: SURGICAL PATHOLOGY RECD BY: Taya Ochoa ENTERED: 05/12/21 12:07 SP TYPE: EGD BIOPSY OT DR: Dr. Nabila Watson MD Tissues: A - Gastric mucous membrane B - Duodenum, NOS C - Esophageal mucous membrane Procedures: Special Stain Group II Surgery Specimen Level IV Alcian Blue/PAS (control) HEADER OPERATION: EGD ([facility] [place] PRE-OP DIAGNOSIS: IBS, dysphagia TISSUE SUBMITTED: A ? Gastric antral ulcer biopsy for H. pylori and pathology, B ? Duodenal biopsy, C ? Distal esophageal biopsy MICROSCOPIC DIAGNOSIS A. Gastric antral ulcer, biopsy: Fragments of gastric mucosa with focal ulceration and associated acute inflammation. Focal mild chronic inflammation. See comment. B. Duodenal biopsy: Fragments of duodenal mucosa, no pathologic diagnosis. C. Distal esophageal biopsy: Fragments of gastric mucosa with mild chronic inflammation. Intestinal metaplasia (goblet cell metaplasia) not identified. See comment. SJ:talia 05/13/2021 COMMENT A. The results of immunohistochemistry for Helicobacter pylori will be reported separately ([id number]). C. Alcian blue/PAS stain with matched control is used in the evaluation of the specimen. MICROSCOPIC DESCRIPTION Slides are reviewed. GROSS DESCRIPTION A - Received in fixative is one container labeled with the patient's name and designated gastric antral ulcer. The specimen consists of two irregular fragments of light chong soft tissue that in aggregate measure 1 x 0.5 x 0.1 cm. The specimen is totally submitted in one cassette. B - Received in fixative is one container labeled with the patient's name and designated duodenal biopsy. The specimen consists of two irregular fragments of light chong soft tissue that in aggregate measure 0.7 x 0.3 x 0.1 cm. The specimen is totally submitted in one cassette. C - Received in fixative is one container labeled with the patient's name and designated distal esophagus. The specimen consists of two irregular fragments of light chong soft tissue that in aggregate measure 0.6 x 0.5 x 0.1 cm. The specimen is totally submitted in one cassette. / AM:talia 05/12/21 TC:2 CPT: 48870 x3, 93773
--- NOTE | 2021-05-11 12:30 | IMM_PTH ---
PATIENT: MITCHELL BHATT LOC: [facility] U#:[id number] AGE/SX: 46/F ROOM: RE05/11/[address]: Dr. Juan Bueno DO : 1975 BED: DIS: 05/11/2021 SPEC #: [id number] RECD: 05/12/21 12:13 STATUS: TRISTEN REQ #: [id number] TYRA: 05/11/21 12:[address]: Juan Bueno DEPT: IMMUNOHISTOCHEMISTRY RECD BY: Nella Webster ENTERED: 05/12/21 12:13 SP TYPE: IMMUNO OTHR DR: Dr. Nabila Watson MD Tissues: A - Stomach, NOS Procedures: H Pylori (initial) PHYSICIAN & INSTITUTION [place] [id number] SPECIMEN INFORMATION: Tissue Source: A ? Gastric antral ulcer biopsy Clinical Info: IBS, dysphagia Specimen Number: [id number] CPT code: 43964 METHODOLOGY: Deparaffinized sections of prefer/formalin-fixed tissue or PAP/DQ stained slides are incubated with monoclonal/polyclonal antibodies/oligonucleotide probes. Localization is made via biotin free immunoperoxidase method. Appropriate controls are performed and reacted as expected. Results on target cell population are indicated in the following table: RESULTS: ANTIBODY / CLONE RESULT Block A H Pylori (polyclonal) negative These tests were developed and their performance characteristics determined by [facility]. They may not have been cleared or approved by the U.S. Food and Drug Administration. The FDA has determined that such clearance or approval is not necessary. INTERPRETATION: A. Gastric antral ulcer, biopsy: Negative for Helicobacter pylori organisms. AMARILIS:talia 05/13/2021
--- NOTE | 2021-05-11 12:35 | PCM.HP.STD ---
HPI - General HPI Narrative This is an updated H&P from when she was seen in our office Chief Complaint: difficulty walking, tingling in extremities Details: MITCHELL BHATT, is a 46 F who presents to the office today for IBS out of control. She has a history of frequent cellulitis and has been on multiple antibiotics in the past. She also has a history of IBS with diarrhea. She is on Viberzi and it was helping her diarrhea however it is not working anymore. She is taking dicyclomine and viberzi. However, if she takes Viberzi BID as directed she is unable to urinate.She is also been experiencing more bloating and more water retention. She had a couple accidents with fecal incontinence. She denies any bleeding per rectum. November of 2019 is when she started getting worse: unable to eat/drink due to urgent diarrhea following intake. She started taking fiber tabs which helped the urgency. Having difficulty with continence r/t urgency. Intense cramping in lower abdomen with BM. Reports loss of consciousness during BM - has occurred four times this year last occurrence in September. Lactose intolerant and has been avoiding dairy products. 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 Reports 10 lb weight gain in a week. She has also been experiencing worsening esophageal dysphagia. She she is status post tracheostomy with long-term NG tube placement secondary to failed to wean after being intubated. She wants to undergo upper endoscopy to evaluate her worsening esophageal dysphagia. ROS Const Constitutional: Positive for fatigue, headache(s), weakness and weight change (Loss) Eyes Eyes: Positive for blurry vision ENT ENT: Positive for ear or mastoid pain, hearing loss, nasal congestion, headache(s) and difficulty swallowing; No tongue swelling or throat swelling Resp Respiratory: No cough or shortness of breath Cardio Cardiology: Positive for chest pain with exertion Gastro GI: Positive for abdominal pain, bloating, change in bowel habits, constipation, diarrhea, heartburn, difficulty swallowing and nausea/dyspepsia Genitourinary-Female: Positive for urinary urgency Musc Musculoskeletal: Positive for joint pain, back pain, joint swelling, muscle cramps, muscle weakness, numbness, tingling, Arthritis, sciatica and leg pain at night Skin Skin: Positive for dry skin; No itchy eyes Neuro Neurology: Positive for weakness, headache(s), numbness and tingling Psych Psychiatric: Positive for anxiety and Positive for depression Endo Endocrine: Positive for cold intolerance, fatigue, increased urine leakage and weight change (Loss) Aller/Imm Allergy/Immunologic: No itchy eyes, throat swelling or tongue swelling Derick/Lymp Hematologic/Lymphatic: Positive for easy bleeding and easy bruising Exam Const General: cooperative and comfortable Nutritional Appearance: average body habitus and well nourished [facility] Head: normal to inspection Ears: hearing grossly normal bilaterally Nose: external nose normal Face and sinus: normal facial exam Mouth: oral mucosae normal Throat: posterior oropharynx normal Eyes General: appearance normal, both eyes and all related structures Neck Neck: normal visual inspection Chest Chest palpation & inspection: normal inspection of the chest and normal palpation of entire chest wall Resp Effort & Inspection: normal respiratory effort Auscultation: Bilateral: Clear to Auscultation Cardio Palpation: normal PMI Rate: regular rate Rhythm: regular rhythm GI Inspection: distended, large pannus, obesity and striae Auscultation: normal bowel sounds Percussion: normal to percussion Skin General: no rashes or lesions noted Neuro General: patient alert Extrem General: normal to inspection Psych Affect: normal affect Quality Reporting Tobacco Screening ([facility] 138) Smoking Status: Unknown if ever smoked Assessment and Plan Assessment and Plan (1) Irritable bowel syndrome: Medications: New: rifaximin (Xifaxan) 550 mg PO TID 52 tabs 0RF Plan - Dr. Martinez Friend, DO: She has a pre-existing date gnosis of IBS with diarrhea. A lot of times this can come from small bacterial overgrowth. We will give her a course of Xifaxan 550 mg 3 times a day x14 days. If that is not improved then we will give her doxycycline 100 mg twice a day for 30 days. With both the new regimen she will take a digestive enzyme plus probiotic with each meal. (2) Dysphagia: Status: Acute Plan - Dr. Martinez Friend, DO: She has been experiencing worsening esophageal aphasia with liquids and pills. She will undergo upper endoscopy to evaluate her upper GI tract. She was explained alternatives, risk, benefits including not withstanding bleeding, infection, sepsis, perforation, need for emergent . She would have an ASA of 3. This is an updated H&P. There were no changes seen since she was seen in office. [facility] Medical History (Updated 05/06/21 @ 12:18 by Bailee Bill) RAFIA (acute kidney injury) Ambulates with cane Anemia Arthritis Asthma Back pain Back problem Chronic bronchitis Chronic headaches COPD (chronic obstructive pulmonary disease) Decreased hearing Excessive bleeding Gastric reflux GERD (gastroesophageal reflux disease) History of echocardiogram History of edema History of IBS History of pain when walking History of steroid therapy History of ulceration Hypertension Injury of head and neck Irritable bowel syndrome Migraine headache Neuropathy Osteoarthritis Rheumatoid arthritis Seasonal allergies Smoker Thyroid disease Thyroid disease TIA (transient ischemic attack) Walker as ambulation aid Wears glasses Wears hearing aid Home Medications gabapentin 800 mg PO Q6H 05/02/15 [History Last Taken 05/11/21] levothyroxine [Unithroid] 50 mcg PO DAILY 05/02/15 [History Last Taken 05/11/21] methocarbamol 500 mg PO TID 04/13/18 [History Last Taken 05/11/21] albuterol sulfate 2 puff INHALATION Q4H PRN PRN 05/06/21 [History Last Taken Unknown] bismuth subsalicylate [Pepto-Bismol] 2 tab PO Q30M PRN 05/06/21 [History Last Taken Unknown] carbamazepine 200 mg PO QHS 05/06/21 [History Last Taken Unknown] diclofenac sodium 50 mg PO BID 05/06/21 [History Last Taken Unknown] fluticasone propionate [Flovent HFA] 2 inh INHALATION BID 05/06/21 [History Last Taken Unknown] apafoxiz-vdcwq-szl 2-C-D3-kathrin [Gxdsswuw-Aqtbfh-GJJ with vit D] 1 tab PO DAILY 05/06/21 [History Last Taken Unknown] hydrochlorothiazide 12.5 mg PO DAILY 05/06/21 [History Last Taken Unknown] hydroxyzine HCl 25 mg PO 4X/DAY 05/06/21 [History Last Taken Unknown] montelukast 10 mg PO DAILY 05/06/21 [History Last Taken Unknown] multivitamin 1 tab PO DAILY 05/06/21 [History Last Taken Unknown] pantoprazole 40 mg PO BID 05/06/21 [History Last Taken Unknown] pumpkin seed extract-soy germ [Azo Bladder Control] 1 cap PO DAILY 05/06/21 [History Last Taken Unknown] sertraline 100 mg PO DAILY 05/06/21 [History Last Taken Unknown] trolamine salicylate [Aspercreme] 1 applic TOPICAL BID PRN 05/06/21 [History Last Taken Unknown] rifaximin 550 mg tablet 550 mg PO TID #42 tab 05/07/21 [Rx Last Taken Unknown] Allergy/AdvReac Type Severity Reaction Status Date / Time aspirin Allergy Itching Verified 05/06/21 11:49 ciprofloxacin HCl Allergy Shortness Verified 05/06/21 11:49 [From Cipro] of breath codeine Allergy Shortness Verified 05/06/21 11:49 of breath hydrocodone Allergy Shortness Verified 05/06/21 11:49 of breath ibuprofen [From Advil] Allergy Rash Verified 05/06/21 11:49 morphine Allergy Angioedema Verified 05/06/21 11:49 tizanidine HCl Allergy Rash Verified 05/06/21 11:49 [From Zanaflex] Penicillins AdvReac Itching Verified 05/06/21 11:49 Surgical History (Updated 05/06/21 @ 12:18 by Bailee Bill) Hx of cervical spine surgery Hx of section Hx of surgical procedure Hx of tracheostomy Hx of tubal ligation Social History Smoking Status: Current some day smoker tobacco type: cigarettes Vital Signs Vital Signs Vital Signs: 05/11/21 11:47 Temperature 97.7 F L Temperature Source Temporal Pulse Rate 62 Respiratory Rate 18 Respiratory Pattern Normal Blood Pressure 109/79 Blood Pressure Mean 89 Blood Pressure Source Monitor Blood Pressure Position Semi-Fowlers Blood Pressure Location Left Arm Pulse Ox 100 Oxygen Delivery Method Room Air Weight Weight: 317 lb 7.45 oz Body Mass Index (BMI) 58.0 Results Lab / Micro Data Micro: Microbiology 05/10/21 13:00 Interface Orders SARS-CoV-2 Antigen (Rapid) - Final
[2021-05-11 13:05] VITALS: BP 109/79; BP 115/81; PULSE 63; RESP 16; TEMP 36.8; O2SAT 100
[2021-05-11 13:10] VITALS: BP 109/79; BP 111/82; PULSE 61; RESP 16; O2SAT 100
--- NOTE | 2021-05-11 13:10 | OP.EGD_ITS ---
Patient Name: Funmi Brooks Procedure Date: 05/11/2021 12:40 PM Date of : 1975 Age: 46 Procedure: Upper GI endoscopy Indications: Epigastric abdominal pain, Functional Dyspepsia, Heartburn Providers: Juan Bueno DO Referring MD: Juan Bueno DO Medicines: Monitored Anesthesia Care Patient Profile: This is a 46 year old female. Refer to note in patient chart for documentation of history and physical. Patient has symptoms. Complications: No immediate complications. Procedure: Pre-Anesthesia Assessment: - Prior to the procedure, a History and Physical was performed, and patient medications and allergies were reviewed. The patient is competent. The risks and benefits of the procedure and the sedation options and risks were discussed with the patient. All questions were answered and informed consent was obtained. Patient identification and proposed procedure were verified by the physician in the pre-procedure area. Mental Status Examination: alert and oriented. Airway Examination: normal oropharyngeal airway and neck mobility. Respiratory Examination: clear to auscultation. CV Examination: normal. Prophylactic Antibiotics: The patient does not require prophylactic antibiotics. Prior Anticoagulants: The patient has taken no previous anticoagulant or antiplatelet agents. ASA Grade Assessment: II - A patient with mild systemic disease. After reviewing the risks and benefits, the patient was deemed in satisfactory condition to undergo the procedure. The anesthesia plan was to use moderate sedation / analgesia (conscious sedation). Immediately prior to administration of medications, the patient was re-assessed for adequacy to receive sedatives. The heart rate, respiratory rate, oxygen saturations, blood pressure, adequacy of pulmonary ventilation, and response to care were monitored throughout the procedure. The physical status of the patient was re-assessed after the procedure. After obtaining informed consent, the endoscope was passed under direct vision. Throughout the procedure, the patient's blood pressure, pulse, and oxygen saturations were monitored continuously. The Endoscope was introduced through the mouth, and advanced to the second part of duodenum. The upper GI endoscopy was accomplished without difficulty. The patient tolerated the procedure well. Moderate Sedation: Moderate (conscious) sedation was administered by the endoscopy nurse and supervised by the endoscopist. The patient's oxygen saturation, heart rate, blood pressure and response to care were monitored. Scope In: 12:49:25 PM Scope Out: 12:54:51 PM Total Procedure Duration Time 0 hours 5 minutes 26 seconds Findings: LA Grade A (one or more mucosal breaks less than 5 mm, not extending between tops of 2 mucosal folds) esophagitis with no bleeding was found. Biopsies were taken with a cold forceps for histology. Verification of patient identification for the specimen was done. Estimated blood loss was minimal. A small hiatal hernia was present. Patchy mild inflammation with hemorrhage characterized by congestion (edema) was found in the gastric antrum. Biopsies were taken with a cold forceps for histology. One non-bleeding linear gastric ulcer with no stigmata of bleeding was found in the gastric antrum. Biopsies were taken with a cold forceps for histology. Verification of patient identification for the specimen was done. Estimated blood loss was minimal. The second portion of the duodenum was normal. Biopsies were taken with a cold forceps for histology. Verification of patient identification for the specimen was done. Estimated blood loss was minimal. Impression: - LA Grade A reflux esophagitis. Biopsied. - Small hiatal hernia. - Gastritis with hemorrhage. Biopsied. - Non-bleeding gastric ulcer with no stigmata of bleeding. Biopsied. - Normal second portion of the duodenum. Biopsied. Recommendation: - Discharge patient to home. - Resume previous diet. - Continue present medications. - Await pathology results. - Repeat upper endoscopy in 1 year for surveillance. - Return to GI office in 2 weeks. Procedure Code(s): --- Professional --- 96749, Esophagogastroduodenoscopy, flexible, transoral; with biopsy, single or multiple CPT copyright 2017 [employer]. All rights reserved. The codes documented in this report are preliminary and upon help desk engineer review may be revised to meet current compliance requirements. Juan Bueno DO 05/11/2021 1:10:19 PM This report has been signed electronically. Number of Addenda: 1 Note Initiated On: 05/11/2021 12:40 PM Addendum Number: 1 Addendum Date: 04/14/2022 4:07:32 PM MAC was used instead of moderate sedation for this patient. Juan Bueno DO 04/14/2022 4:07:36 PM This report has been signed electronically.
--- NOTE | 2021-05-11 13:11 | OP.CCLET_ITS ---
04/14/2022 Nabila Watson [address] [place] [address] Re : Upper GI endoscopy procedure for Funmilance Brooks Dear Dr. Watson This procedure was performed on Tuesday, May 11, 2021. My impressions and recommendations are as follows: Impressions : - LA Grade A reflux esophagitis. Biopsied. - Small hiatal hernia. - Gastritis with hemorrhage. Biopsied. - Non-bleeding gastric ulcer with no stigmata of bleeding. Biopsied. - Normal second portion of the duodenum. Biopsied. Recommendations : - Discharge patient to home. - Resume previous diet. - Continue present medications. - Await pathology results. - Repeat upper endoscopy in 1 year for surveillance. - Return to GI office in 2 weeks. My findings are described in the full procedure note, which is enclosed. If I can be of further assistance, please feel free to contact me at . Sincerely, Juan Bueno, 05/11/2021 1:10:19 PM This report has been signed electronically.
[2021-05-11 13:17] VITALS: BP 109/77; BP 109/79; PULSE 60; RESP 16; TEMP 36.2; O2SAT 100
[2021-05-11 13:47] VITALS: BP 109/79
== END 2021-05-11 14:03 ==
LOC: EN 11:23 → AC 11:24
PROVIDERS: PCP Family Medicine; Referring Provider Internal Medicine Gastroenterology; Visit Provider Internal Medicine Gastroenterology
PROC: 0DJ08ZZ Inspection of Upper Intestinal Tract, Via Natural or Artificial Opening Endoscopic (ICD-10-PCS; CPT 43235; principal; 2021-05-11 12:25)
DX: K30 Functional dyspepsia (principal); K44.9 Diaphragmatic hernia without obstruction or gangrene; K29.71 Gastritis, unspecified, with bleeding; K25.9 Gastric ulcer, unspecified as acute or chronic, without hemorrhage or perforation; K21.00 Gastro-esophageal reflux disease with esophagitis, without bleeding; D64.9 Anemia, unspecified; Z86.73 Personal history of transient ischemic attack (TIA), and cerebral infarction without residual deficits; G62.9 Polyneuropathy, unspecified; I10 Essential (primary) hypertension; J44.9 Chronic obstructive pulmonary disease, unspecified; M06.9 Rheumatoid arthritis, unspecified; K58.0 Irritable bowel syndrome with diarrhea; Z79.1 Long term (current) use of non-steroidal anti-inflammatories (NSAID); Z79.51 Long term (current) use of inhaled steroids
CPT/HCPCS: 43239; 87426; 88305; 88313; 88342; C9803; J7120; J2405

== ENCOUNTER → 2021-06-07 10:29 | Outpatient (CLI) | payer MEDICAID, SELFPAY ==
--- NOTE | 2021-06-07 10:31 | RAD_ITS ---
STUDY: X-RAY - LUMBAR SPINE REASON FOR EXAM: Female, 46 years old. BACK PAIN TECHNIQUE: 5 view(s) of the lumbar spine were obtained. COMPARISON: None FINDINGS: Normal lumbar lordosis. There is no substantial scoliosis. There is a grade 1 retrolisthesis at L4-5. Normal vertebral bodies with mild spurring at the endplates. Normal disc space heights. The soft tissue structures are unremarkable. RAD/L/S Spine Min 4 Views IMPRESSION: Mild degenerative changes of the lumbar spine. Grade1 retrolisthesis at L4-5. Electronically Signed: Thee Miller DO at 16:09 EDT Tel [phone], Service support ,
== END ==
PROVIDERS: PCP Family Medicine; Referring Provider Nurse Practitioner Family; Visit Provider Nurse Practitioner Family
DX: M54.50 Low back pain, unspecified (principal)
CPT/HCPCS: 72110

== ENCOUNTER 2021-11-26 13:59 | Outpatient (CLI) | payer MEDICAID, SELFPAY ==
[2021-12-05 00:06] LABS: Beef <0.10 kU/L (Class 0); Corn <0.10 kU/L (Class 0); Egg, Whole <0.10 kU/L (Class 0); Milk (Cow) <0.10 kU/L (Class 0); Peanut <0.10 kU/L (Class 0); Pork <0.10 kU/L (Class 0); Soybean <0.10 kU/L (Class 0); Wheat <0.10 kU/L (Class 0)
[2021-12-05 13:35] LABS: Chocolate <0.10 kU/L (Class 0)
== END 2021-11-26 23:59 | disposition home or self-care (01) ==
LOC: LAB 14:01
PROVIDERS: PCP Family Medicine; Referring Provider Internal Medicine Gastroenterology; Visit Provider Internal Medicine Gastroenterology
DX: K58.0 Irritable bowel syndrome with diarrhea (principal)
CPT/HCPCS: 36415; 86003; 86005

== ENCOUNTER → 2022-11-08 | Outpatient (CLI) | payer MEDICAID, SELFPAY ==
[2022-11-08 17:57] LABS: Absolute Lymphocyte Count 2.52 X10^3/uL (0.83-4.51); Absolute Neutrophil Count 5.5 X10^3/uL (2.0-7.7); Basophil# 0.07 X10^3/uL; Basophil% 0.8 % (0-1); Eosinophil# 0.16 X10^3/uL; Eosinophils% 1.8 % (0-5); Hematocrit 41.1 % (37-47); Hemoglobin 12.6 g/dL (12.0-15.0); Lymphocyte # 2.52 X10^3/ul (0.83-4.51); Lymphocyte % 28.5 % (19-41); Mean Corp Hgb Conc 30.7 g/dL (32-36); Mean Corpuscular Hgb 29.3 pg (27.0-32.0); Mean Corpuscular Volume 95.6 fL (81-99); Mean Platelet Vol. 10.9 fl (6.2-12.0); Monocyte# 0.51 X10^3/uL; Monocyte% 5.8 % (0-10); NRBC Flagged by Analyzer 0 % (0-5); Neutrophil # 5.53 X10^3/uL (2.7-7.7); Neutrophil % 62.5 % (47-70); Platelet Count 334 K/mm3 (150-450); RBC Distribution Width CV 16.5 % (11.6-14.6); RBC Distribution Width SD 56.2 fl (35.1-43.9); White Blood Count 8.8 K/mm3 (4.4-11.0)
[2022-11-08 18:52] LABS: ALB/GLOB Ratio 0.8 RATIO (0.9-2.4); AST(SGOT) 21 U/L (15-37); Alanine Aminotransfer ALT/SGPT 24 U/L (13-56); Albumin, Serum 3.3 g/dL (3.2-5.0); Alkaline Phosphatase 100 U/L (45-117); Anion Gap 7 (5-15); BUN 10 mg/dL (7-18); BUN/Creat Ratio 13.3 RATIO (10-20); Calcium,Total 9.3 mg/dL (8.5-10.1); Chloride 103 mmol/L (98-107); Creatinine, Serum 0.75 mg/dL (0.55-1.02); EST Glomerular Filtration Rate 87 mL/min (>60); Est Glom Filt Rate - Afr Amer 105 mL/min (>60); Glucose 101 mg/dL (74-106); Potassium 4.1 mmol/L (3.5-5.1); Protein, Total 7.3 g/dL (6.4-8.2); Sodium Level 137 mmol/L (136-145); Thyroid Stim Hormone (TSH) 1.12 uIU/mL (0.358-3.74)
== END | disposition home or self-care (01) ==
PROVIDERS: PCP Family Medicine; Referring Provider Family Medicine; Visit Provider Family Medicine
DX: Z00.00 Encounter for general adult medical examination without abnormal findings (principal); K21.9 Gastro-esophageal reflux disease without esophagitis; E03.9 Hypothyroidism, unspecified
CPT/HCPCS: 36415; 80053; 84443; 85025

== ENCOUNTER → 2025-01-29 | Outpatient (CLI) | payer MEDICAID, SELFPAY ==
[2025-01-29 18:59] LABS: Color, Urine Yellow (Yellow); Glucose, Dipstick Normal (Normal); Ketone-Dipstick Negative (Negative); Leukocyte Esterase-Dipstick 100 /ul (Negative); Nitrite-Dipstick Negative (Negative); Occult Blood-Urine Negative /ul (Negative); Protein-Dipstick Negative (Negative); Urine Bilirubin Dipstick Negative (Negative); Urine Clarity Clear (Clear); Urine Urobilinogen Normal (Normal)
== END | disposition home or self-care (01) ==
LOC: LABSPEC 17:54 → HHLAB 01-30 09:50
PROVIDERS: PCP Nurse Practitioner Family; Visit Provider Nurse Practitioner Family
DX: M48.061 Spinal stenosis, lumbar region without neurogenic claudication (principal)
CPT/HCPCS: 81002; 87077; 87086; 87088; 87186

== ENCOUNTER 2025-06-01 12:38 | Inpatient (IN) | payer MEDICAID, SELFPAY ==
[2025-06-01] VITALS (24 sets, daily range): BP systolic 87–137; BP diastolic 39–110; PULSE 74–134; RESP 16–28; TEMP 36.7–37.3; O2SAT 93–100; BMI 66.2; BMI 62.8
--- OUTSIDE RECORDS SUMMARY | 2025-06-01 13:08 | XMS RPT_ITS | CCD ---
Author Organization [facility] Care Team Providers Care City Attorney Name Role Phone OlivierLois Unavailable Unavailable PROVIDER, UNKNOWN Unavailable Unavailable Geovanny Nesbitt Unavailable Unavailable Dr. Nabila Watson Primary Care Provider Dr. Nabila Watson Referring Provider [phone] Friend, Dr. Martinez Attending Provider [phone] Unavailable Primary Care Provider Unavailcolton rivera Unavailable Primary Care Provider UnavailDr. Nabila Pennington Primary Care Provider [phone] Dr. Nabila Watson Referring Provider [phone] Filipe CONTRERAS, MAID CLEAN[employer]OOKING-C Cat Wahl Attending Provider [phone] ROMÁN CHANDLER Referring Unavailable RYAN CHAVARRIAIDANA Attending Unavailable ELMER LARRY Admitting Unavailable Nabila Watson MD Primary Care Provider Dr. Agustin Carrillo Attending Unavaila Geovanny Guajardo DO Primary Care Provider [phone] ANNETTE CHAVIS Primary Care Physician ANNETTE SAMANO Primary Care Unavailable ANDERSON BEEBE Attending Unava MELODIE Mckeon Attending Unavailable ANNETTE SAMANO Primary Care Unavailable ANNETTE SAMANO Primary Care Unavailable TALHA NOBLE Attending Unavailable ANNETTE CHAVIS Primary Care Physician FERNANDO BULLARD, LEEANN May Consulting Unavailable HAMZAH BULLARD FACP, JUSTIN Don Attending Unavail able ANNETTE CHAVIS Primary Care UnaDR MARGAUX Schuster DOH Admitting Unavailable SUKH BULLARD, DR ALVARADO Consulting Unavailable DARYN YAP, JADIEL Link Consulting Unavailable AMISHA BULLARD, DR REUBEN BHAKTA Attending Unav ailable SAMANO FUNERAL DIRECTOR'S ASSISTANT-[facility], [facility] Unavai labann COPPOLA DO, DR JOSEPH Attending Unavailable SAMANO FUNERAL DIRECTOR'S ASSISTANT-PRODUCT DEVELOPMENT INTERN, [facility] Unavai labann YAP DO, FEMI M Consulting Unavailabl e KAPPER FUNERAL DIRECTOR'S ASSISTANT-PRODUCT DEVELOPMENT INTERN, KEATON M Admitting Unavaila ble KAPPER FUNERAL DIRECTOR'S ASSISTANT-PRODUCT DEVELOPMENT INTERN, KEATON M Admitting Unavaila ble ANGIE BULLARD, VALERIE Attending Unavailable ANGIE BULLARD, VALERIE Consulting Unavailable [facility], [facility] Alyssa Samano MA[employer]-C, [facility] Primary Care Provider Selwyn [employer]-C, Annette Attending Provider ElierYung garrett Attending Unavailable Nabila Watson Referring Unavailable Nabila Watson Primary Care Unavailable Selwyn [employer], [facility] Primary Care Unavailable Aileen Campos Attending Unavail able Selwyn [employer], Annette Referring Unavailable ElierYung garrett Referring Unavailable ElierYung garrett Attending Unavailable Selwyn [employer], [facility] Unavailable Selwyn MA[employer], Annette Attending Unavailable Selwyn [employer], [facility] Unavailable Allergies Allergy Classification Reported Allergen(s) Allergy Type Date of Onset Reaction(s) Facility (2 sources) Aspirin Drug Allergy 05-25-20 21 Itching [facility] (5 sources) Ciprofloxacin; Translations: [ciprofloxacin HCl] Drug Allergy 05-25-20 21 Shortness of breath [facility] (16 sources) Codeine; Translations: [CODEINE] Drug Allergy 01-18-20 13 Itching [facility] (4 sources) HYDROcodone Drug Allergy 05-25-20 21 Shortness of breath [facility] (16 sources) Ibuprofen; Translations: [IBUPROFEN] Drug Allergy 01-18-20 13 Rash [facility] (16 sources) Morphine; Translations: [MORPHINE] Drug Allergy 01-18-20 13 Anaphylaxis [facility] (5 sources) Penicillins; Translations: [Penicillins] Propensity to adverse reactions 05-25-20 21 Itching [facility] (12 sources) tiZANidine; Translations: [TIZANIDINE HCL] Drug Allergy 06-22-20 15 Rash [facility] (12 sources) Acetaminophen / HYDROcodone; Translations: [HYDROCODONE-ACETA MINOPHEN] Drug Allergy 01-18-20 13 Anaphylaxis [facility] Work Phone: (12 sources) Ciprofloxacin; Translations: [CIPROFLOXACIN] Drug Allergy 01-18-20 13 Hives, Redness of skin of face [facility] (7 sources) Naproxen; Translations: [NAPROXEN SODIUM] Drug Allergy 05-13-20 15 Itching [facility] (3 sources) Lactose; Translations: [LACTOSE] Drug Allergy 01-13-20 23 Diarrhea [facility] Other [place] [facility] (3 sources) Acetaminophen; Translations: [acetaminophen] Drug Allergy 05-16-20 24 Anaphylaxis (disorder) [facility] (3 sources) celecoxib; Translations: [celecoxib] Drug Allergy 05-16-20 24 Swelling (morphologic abnormality) [facility] (7 sources) Cyproheptadine; Translations: [cyproheptadine] Drug Allergy 05-16-20 24 Weal (disorder) [facility] (7 sources) Naproxen; Translations: [naproxen] Drug Allergy 05-16-20 24 Itching (finding) [facility] (4 sources) Penicillin; Translations: [penicillins] Drug Allergy itching [facility] (7 sources) tiZANidine; Translations: [tizanidine] Drug Allergy 05-16-20 24 itching, redness of skin, Rash [facility] (1 source) Penicillin; Translations: [penicillins] Drug Allergy itching [facility] (1 source) Acetaminophen Drug Allergy 05-16-20 [facility] (1 source) celecoxib Drug Allergy 05-16-20 [facility] (1 source) Codeine Drug Allergy 05-16-20 24 [facility] (1 source) Cyproheptadine Drug Allergy 05-16-20 [facility] (1 source) HYDROcodone Drug Allergy 05-16-20 [facility] (1 source) Ibuprofen Drug Allergy 05-16-20 [facility] (1 source) Morphine Drug Allergy 05-16-20 [facility] (1 source) Naproxen Drug Allergy 05-16-20 [facility] (1 source) tiZANidine Drug Allergy 05-16-20 [facility] Medications Current Medications Medication Drug Class(es) Dates Sig (Normalized) Sig (Original) acetaminophen 650 mg oral tablet (9 sources) Start: 07-23-2024 take 1 dose by mouth once daily as needed for pain Tylenol Dose : 650 mg =, Oral, qDay, PRN as needed for pain, 0 Refill(s) Start Date: 07/23/24 Status: Ordered Repeat number: 1 Start: 07-19-2016 take 2 tablets by mo uth every six hours as needed acetaminophen (TYLENOL) 325 mg tablet Take 2 tablets by mouth every 6 hours as needed for Pain or Fever. 0 07/19/2016 Active Comment on above: Take 2 tablets by mo uth every 6 hours as needed for Pain or Fever. acetaminophen 325 mg / oxyCODONE hydrochloride 5 mg oral tablet (5 sources) Opioid Agonist Start: 01-24-2025 End: 01-31-2025 take 1 tablet by mouth every six hours as needed for pain acetaminophen-oxyCO DONE 325 mg-5 mg oral tablet Dose = 1 tab(s), Oral, q6h, PRN for pain, X 7 day(s), # 28 tab(s), 0 Refill(s), [facility]: [id number], Lumbar spinal stenosis, 157.5, cm, 01/23/25 13:05:00 EDT, Height, 150, kg, 01/23/25 13:05:00 EDT, Dosing Weight Start Date: 01/24/25 Stop Date: 01/31/25 Status: Ordered Quantity: 28.0 Unit: tab(s) Repeat number: 1 Indications: Spinal stenosis, lumbar region without neurogenic claudication; Start: 03-12-2016 End: 06-05-2017 Oxycodone-Acetaminophen 1 TA BLET tablet Discontinued 1 - 2 {tbl} PO EVERY 4 HOURS NEEDED as needed for Pain March 12, 2016 12:00am June 05, 2017 11:43am Start: 03-12-2016 End: 06-05-2017 take 1 tablet by mouth every four hours as needed Oxycodone-Acetaminophen Discontinued 1 - 2 TABLET PO EVERY 4 HOURS NEEDED March 12, 2016 7:48pm June 05, 2017 11:43am albuterol 0.83 mg/ml inhalation solution (20 sources) beta2-Adrenergic Agonist Start: 12-17-2024 take 1 dose by inhalation every four hours as needed albuterol 2.5 mg/3 mL (0.083%) inhalation solution Dose : 2.5 mg = 3 mL, Inhalation, q4h, PRN for wheezing, # 60 EA, 0 Refill(s) Start Date: 12/17/24 Status: Ordered Quantity: 60.0 Unit: EA Repeat number: 1 Start: 12-16-2024 End: 06-14-2025 take 2 puff(s) by inhalation every four hours as needed for wheezing Ventolin HFA MDI (90 mcg/inh) inhalation aerosol 2 puff(s), Inhalation, q4h, PRN as needed for shortness of breath or wheezing, # 18 gram(s), 1 Refill(s), [facility]: [id number], Acute bronchitis Chronic obstructive pulmonary disease (COPD), 157, cm, 12/16/24 14:49:00 EDT, Height, kg, 12/16/24 14:39:00 EDT, Dosing Weight Start Date: 12/16/24 Stop Date: 06/14/25 Status: Ordered Quantity: 18.0 Unit: g Repeat number: 2 Indications: Acute bronchitis, unspecified; Chronic obstructive pulmonary disease, unspecified; Start: 03-28-2024 take 0.5 mL by inhal ation every two hours as needed for wheezing albuterol 5 mg/mL (0.5%) inhalation solution Dose : 2.5 mg = 0.5 mL, Inhalation, q2h, PRN as needed for wheezing, # 20 mL, 0 Refill(s) Start Date: 03/28/24 Status: Ordered Start: 04-26-2023 take 2.5 mg by inhal ation every four hours as needed Albuterol Sulfate 2.5 mg /3 mL (0.083 %) solution for nebulization Active 2.5 mg INHALATION Q4H as needed April 26, 2023 12:00am Start: 05-06-2021 Albuterol Sulf ate 90 mcg/actuation HFA aerosol inhaler Active 2 NMA INHALATION EVERY 4 HOURS NEEDED as needed for ASTHMA May 06, 2021 12:00am Start: 05-06-2021 take 1 puff(s) by in halation every four hours as needed Albuterol Sulfate Active 2 PUFF INHALATION EVERY 4 HOURS NEEDED May 06, 2021 11:49am Start: 05-02-2015 End: 06-05-2017 take 1 puff(s) by inhalation every four hours as needed Albuterol Sulfate (Proair Hfa) 1 PUFF inhaler Discontinued 1 PUFF INHALATION EVERY 4 HOURS NEEDED May 02, 2015 3:38pm June 05, 2017 11:47am Start: 05-02-2015 End: 06-05-2017 Albuterol Sulfate (Proair Hf a) 1 PUFF inhaler Discontinued 1 NMA INHALATION EVERY 4 HOURS NEEDED as needed for Shortness Of Breath May 02, 2015 12:00am June 05, 2017 11:47am Start: 05-02-2015 End: 06-05-2017 take 1 puff(s) by inhalation every four hours as needed Albuterol Sulfate (Proair Hfa) 1 PUFF inhaler Discontinued 1 PUFF INHALATION EVERY 4 HOURS NEEDED May 02, 2015 12:00am June 05, 2017 11:47am take 2.5 mg by inhal ation every four hours as needed albuterol (PROVENTIL) 2.5 mg /3 mL (0.083 %) nebulizer solution Use 2.5 mg via nebulizer every 4 hours as needed for wheezing/shortness of breath. 0 Active take 2 puff(s) by in halation every six hours as needed albuterol HFA (PROVENTIL HFA, VENTOLIN HFA) 90 mcg/actuation inhaler Inhale 2 Puffs as instructed every 6 hours as needed. 0 Active Comment on above: Inhale 2 Puffs as in structed every 6 hours as needed. Use 2.5 mg via nebul izer every 4 hours as needed for wheezing/shortness of breath. benztropine mesylate 0.5 mg oral tablet (10 sources) Anticholinergic, Antihistamine Start: 04-26-2023 End: 04-26-2023 benztropine 0.5 mg oral tablet Dose : 0.5 mg = 1 tab(s), Oral, BID, PRN abdominal discomfort, 0 Refill(s) Start Date: 03/28/24 Status: Ordered Repeat number: 1 take 1 tablet by mouth twice dalia ly benztropine (COGENTIN) 0.5 mg tablet Take 0.5 mg by mouth twice daily. 0 Active Comment on above: Take 0.5 mg by mouth twice daily. bismuth subsalicylate 262 mg oral capsule (8 sources) Bismuth Start: 03-28-2024 Pepto Bismol Liquicaps 262 mg oral capsule Dose : 524 mg = 2 cap(s), Oral, q30min, not to exceed 8 capsules/day, # 12 cap(s), 0 Refill(s) Start Date: 03/28/24 Status: Ordered Quantity: 12.0 Unit: cap(s) Repeat number: 1 Start: 05-06-2021 Bismuth Subsal icylate (Pepto-Bismol) 262 mg Tablet,Chewable Active 2 {tbl} PO Q30M as needed for Diarrhea May 06, 2021 12:00am Start: 05-06-2021 Bismuth Subsal icylate (Pepto-Bismol) 262 mg Tablet,Chewable Active 2 TABLET PO Q30M May 06, 2021 11:49am cefdinir 300 mg oral capsule (1 source) Cephalosporin Antibacterial Start: 04-24-2024 End: 05-04-2024 cefdinir 300 mg oral capsule Dose : 300 mg = 1 cap(s), Oral, q12h, X 10 day(s), # 20 cap(s), 0 Refill(s), 05/04/24 8:46:00 PM EDT, [facility]acy: [id number], 157, cm, 03/28/24 13:53:00 EDT, Height, 154.9, kg, 03/28/24 13:53:00 EDT, Dosing Weight Start Date: 04/24/24 Stop Date: 05/04/24 Status: Ordered cephalexin 500 mg oral capsule (1 source) Cephalosporin Antibacterial Start: 02-05-2025 End: 02-15-2025 cephalexin 500 mg oral capsule Dose : 500 mg = 1 cap(s), Oral, QID, X 10 day(s), # 40 cap(s), 0 Refill(s), 02/15/25 5:01:00 PM EDT, [facility]acy: [id number], 157.5, cm, 01/23/25 13:05:00 EDT, Height, 150, kg, 01/23/25 13:05:00 EDT, Dosing Weight Start Date: 02/05/25 Stop Date: 02/15/25 Status: Ordered Quantity: 40.0 Unit: cap(s) Repeat number: 1 cetirizine hydrochloride 10 mg oral tablet (13 sources) Histamine-1 Receptor Antagonist Start: 05-16-2024 End: 01-19-2025 take 1 tablet by mouth once daily Cetirizine 10 mg tablet Active 10 mg PO daily May 16, 2024 12:00am Start: 04-19-2024 cetirizine 10 mg oral tablet Dose : 10 mg = 1 tab(s), Oral, qDay, # 90 tab(s), 0 Refill(s), [facility]: [id number], 157, cm, 03/28/24 13:53:00 EDT, Height, kg, 03/28/24 13:53:00 EDT, Dosing Weight Start Date: 04/19/24 Status: Ordered Start: 04-26-2023 take 1 capsule by [facility] once daily as needed Cetirizine (All Day Allergy (Cetirizine)) 10 mg capsule Active 10 mg PO DAILY as needed April 26, 2023 12:00am Start: 11-06-2013 End: 04-25-2014 take 1 tablet by mouth once daily Cetirizine Hcl (Zyrtec) 10 MG tablet Discontinued 10 mg PO DAILY November 06, 2013 12:00am April 25, 2014 9:59am clopidogrel 75 mg oral tablet (10 sources) [id number] Platelet Inhibitor Start: 06-01-2023 End: 03-14-2025 take 1 tablet by mouth once daily Clopidogrel 75 mg tablet Active 75 mg PO DAILY 90 3 March 14, 2025 8:35am diclofenac sodium 0.01 mg/mg topical gel (9 sources) Nonsteroidal Anti-inflammatory Drug Start: 10-18-2024 End: 04-16-2025 Voltaren 1% topical gel 4 = gram(s), Topical, QID, PRN Pain, # 200 gram(s), 5 Refill(s), [facility]: [id number], Gel, 157, cm, 10/18/24 9:46:00 EST, Height, 154, kg, 10/18/24 9:46:00 EST, Dosing Weight Start Date: 10/18/24 Stop Date: 04/16/25 Status: Ordered Quantity: 200.0 Unit: g Repeat number: 6 Indications: Fibromyalgia; Spondylosis without myelopathy or radiculopathy, lumbar region; Bilateral primary osteoarthritis of knee; Start: 05-06-2021 take 1 tablet by ashlyn th twice daily Diclofenac Sodium 50 mg tablet,delayed release (DR/EC) Active 50 mg PO TWICE A DAY May 06, 2021 12:00am dicyclomine hydrochloride 10 mg oral capsule (13 sources) Anticholinergic Start: 08-24-2023 End: 09-04-2023 dicyclomine 10 mg oral capsule Dose : 10 mg = 1 cap(s), Oral, QID, # 360 cap(s), 0 Refill(s), [facility]: [id number], 157, cm, 11/15/24 10:32:00 EDT, Height, kg, 11/15/24 10:32:00 EDT, Dosing Weight Start Date: 11/26/24 Status: Ordered Quantity: 360.0 Unit: cap(s) Repeat number: 1 Start: 05-06-2021 End: 05-07-2021 take 1 capsule by mouth four times daily Dicyclomine 10 mg capsule Discontinued 10 mg PO 4 TIMES DAILY May 06, 2021 12:00am May 07, 2021 8:50am [employer] Daily Probiotics oral capsule (1 source) Start: 04-24-2024 End: 06-23-2024 take 1 capsule by mouth once daily Digestive Advantage Daily Probiotics oral capsule Dose = 1 cap(s), Oral, qDay, # 30 cap(s), 1 Refill(s), [facility]: [id number], 157, cm, 03/28/24 13:53:00 EDT, Height, kg, 03/28/24 13:53:00 EDT, Dosing Weight Start Date: 04/24/24 Stop Date: 06/23/24 Status: Ordered doxycycline monohydrate 100 mg oral tablet (5 sources) Tetracycline- class Drug Start: 06-22-2022 End: 06-27-2022 take 1 tablet by mouth twice daily doxycycline monohydrate 100 mg tablet Take 1 tablet by mouth twice daily for 5 days. 10 tablet 0 06/22/2022 06/27/2022 Active Start: 11-06-2013 End: 04-25-2014 take 1 capsule by mouth twice daily Doxycycline Hyclate 100 MG capsule Discontinued 100 mg PO TWICE A DAY 20 November 06, 2013 12:00am April 25, 2014 9:59am Comment on above: Take 1 tablet by ashlyn th twice daily for 5 days. famotidine 40 mg oral tablet (19 sources) Histamine-2 Receptor Antagonist Start: 09-11-2023 take 1 tablet by mouth once daily Famotidine 40 mg tablet Active 40 mg PO DAILY 30 0 September 11, 2023 8:07am Start: 05-01-2023 End: 09-11-2023 take 1 tablet by mouth twice daily as needed Famotidine 40 mg tablet Discontinued 40 mg PO TWICE A DAY as needed May 01, 2023 11:21am September 11, 2023 8:07am Start: 01-14-2023 take 1 tablet by ashlyn th every twelve hours as needed famotidine (PEPCID) 20 mg tablet Take 1 tablet by mouth twice daily as needed. 0 01/14/2023 Active Start: 09-26-2022 End: 05-01-2023 take 1 tablet by mouth at bedtime Famotidine 40 mg tablet Discontinued 40 mg PO AT BEDTIME 90 1 March 22, 2023 7:35am May 01, 2023 11:27am Start: 10-16-2015 take 1 tablet by ashlyn th twice daily famotidine (PEPCID) 20 mg tablet Take 1 tablet by mouth twice daily. 60 tablet 12 10/16/2015 Active Comment on above: Take 1 tablet by ashlyn th twice daily. Take 1 tablet by ashlyn th twice daily as needed. 120 actuat fluticasone propionate 0.11 mg/actuat metered dose inhaler (8 sources) Corticosteroid Start: 12-18-19 25 End: 08-25-19 26 take 2 doses by inhalation twice daily Flovent HFA 110 mcg/inh inhalation aerosol Dose : 220 mcg = 2 inh, Inhalation, BID, # 12 gram(s), 6 Refill(s), [facility]acy: [id number], Chronic obstructive pulmonary disease (COPD), 157.5, cm, 01/23/25 13:05:00 EDT, Height, kg, 01/23/25 13:05:00 EDT, Dosing Weight Start Date: 01/27/25 Stop Date: 08/25/25 Status: Ordered Quantity: 12.0 Unit: g Repeat number: 7 Indications: Chronic obstructive pulmonary disease, unspecified; Start: 05-06-2021 Fluticasone Pr opionate (Flovent Hfa) 110 mcg/actuation HFA aerosol inhaler Active 2 NMA INHALATION TWICE A DAY May 06, 2021 12:00am Start: 05-06-2021 Fluticasone Pr opionate (Flovent Hfa) 110 mcg/actuation HFA aerosol inhaler Active 2 INH INHALATION TWICE A DAY May 06, 2021 11:49am gabapentin 600 mg oral tablet (14 sources) Anti-epileptic Agent Start: 05-12-2023 End: 05-19-2024 take 1 tablet by mouth every six hours Gabapentin 600 mg tablet Active 600 mg PO EVERY 6 HOURS May 12, 2023 12:00am Start: 04-26-2023 End: 05-12-2023 take 2 capsules by mouth every six hours Gabapentin 300 mg capsule Discontinued 600 mg PO EVERY 6 HOURS April 26, 2023 10:26am May 12, 2023 3:56pm Start: 10-27-2015 take 1 capsule by [facility] once daily at bedtime gabapentin (NEURONTIN) 300 mg capsule Take 1 capsule by mouth daily at bedtime. 30 capsule 0 10/27/2015 Active Start: 05-02-2015 End: 04-26-2023 Gabapentin 300 MG capsule Discontinued 800 mg PO EVERY 6 HOURS May 02, 2015 12:00am April 26, 2023 10:30am Start: 05-02-2015 take 800 mg by mouth every six hours Gabapentin Active 800 MG PO EVERY 6 HOURS May 02, 2015 3:38pm Comment on above: Take 1 capsule by [facility] daily at bedtime. Zgfhkopj-Mtula-Ivl 2-C-D3-Kathrin (Oacaeiqm-Iovsku-G sm With Vit D) 750-30-1,000-1 ar-gu-ubzc-mg Tablet (4 sources) Start: 05-06-2021 take 1 tablet by mouth once daily Spcpyntn-Uwlhq-Kgp 2-C-D3-Kathrin (Lufvzlce-Qviqfy-Yac With Vit D) 750-30-1,000-1 gm-uw-hbkz-mg Tablet Active 1 TABLET PO DAILY May 06, 2021 11:49am Start: 05-06-2021 Glucosam-Chond -Msm 2-C-D3-Kathrin (Dhhrhnqz-Nmqgbb-Nhn With Vit D) 750-30-1,000-1 ij-wn-zhyk-mg Tablet Active 1 {tbl} PO DAILY May 06, 2021 12:00am Start: 05-06-2021 take 1 tablet by ashlyn th once daily Qjbhrqjj-Lcpbi-Wrx 2-C-D3-Kathrin (Ifhzxdtv-Pnmgjy-Mvf With Vit D) 750-30-1,000-1 lh-wb-lbqj-mg Tablet Active 1 TABLET PO DAILY May 06, 2021 12:00am Glucosamine Chondroitin Advanced oral tablet (4 sources) Start: 10-18-2024 take 1 tablet by mouth once daily Glucosamine Chondroitin Advanced oral tablet Dose = 2 tab(s), Oral, qDay, plus D- 50 mcg, # 120 tab(s), 0 Refill(s) Start Date: 10/18/24 Status: Ordered Quantity: 120.0 Unit: tab(s) Repeat number: 1 12 hr guaiFENesin 600 mg extended release oral tablet (1 source) Start: 04-24-2024 End: 05-04-2024 Mucinex 600 mg oral tablet, extended release Dose : 600 mg = 1 tab(s), Oral, q12h, X 10 day(s), # 20 tab(s), 0 Refill(s), 05/04/24 8:44:00 PM EDT, [facility]: [id number], 157, cm, 03/28/24 13:53:00 EDT, Height, kg, 03/28/24 13:53:00 EDT, Dosing Weight Start Date: 04/24/24 Stop Date: 05/04/24 Status: Ordered hydroCHLOROthiazide 12.5 mg oral capsule (7 sources) Thiazide Diuretic Start: 04-19-2024 hydroCHLOROthiazide 12.5 mg oral capsule Dose : 12.5 mg = 1 cap(s), Oral, qDay, # 90 cap(s), 0 Refill(s), [facility]acy: [id number], 157, cm, 03/28/24 13:53:00 EDT, Height, kg, 03/28/24 13:53:00 EDT, Dosing Weight Start Date: 04/19/24 Status: Ordered Start: 12-28-2023 End: 05-16-2024 take 1 tablet by mouth once daily Hydrochlorothiazide 12.5 mg tablet Discontinued 12.5 mg PO DAILY December 28, 2023 12:00am May 16, 2024 4:24pm Start: 05-06-2021 End: 11-23-2023 take 1 capsule by mouth once daily Hydrochlorothiazide 12.5 mg capsule Discontinued 12.5 mg PO DAILY May 06, 2021 12:00am November 23, 2023 3:25pm hydrOXYzine hydrochloride 25 mg oral tablet (12 sources) Antihistamine Start: 05-06-2021 End: 04-26-2023 take 1 tablet by mouth four times daily as needed Hydroxyzine Hcl 25 mg tablet Active 25 mg PO 4 TIMES DAILY as needed April 26, 2023 10:27am Comment on above: Take 25 mg by mouth four times daily as needed. levothyroxine sodium 0.05 mg oral tablet (18 sources) l-Thyroxine Start: 11-26-2024 levothyroxine 50 mcg (0.05 mg) oral tablet Dose : 50 mcg = 1 tab(s), Oral, qDay, # 90 tab(s), 0 Refill(s), [facility]: [id number], 157, cm, 11/15/24 10:32:00 EDT, Height, kg, 11/15/24 10:32:00 EDT, Dosing Weight Start Date: 11/26/24 Status: Ordered Quantity: 90.0 Unit: tab(s) Repeat number: 1 Start: 04-19-2024 levothyroxine 50 mcg (0.05 mg) oral tablet Dose : 50 mcg = 1 tab(s), Oral, qDay, # 90 tab(s), 0 Refill(s), [facility]acy: [id number], 157, cm, 03/28/24 13:53:00 EDT, Height, kg, 03/28/24 13:53:00 EDT, Dosing Weight Start Date: 04/19/24 Status: Ordered Start: 05-13-2015 take 1 capsule by mo [facility] once daily Levothyroxine 50 mcg cap Indications: Acquired hypothyroidism Take 1 capsule by mouth once daily. 30 capsule 12 05/13/2015 Active Start: 05-02-2015 take 1 tablet by [facility] once daily Levothyroxine (Unithroid) 50 MCG tablet Active 50 ug PO DAILY May 02, 2015 12:00am Start: 11-06-2013 End: 04-25-2014 take 2 tablets by mouth once daily Levothyroxine 25 MCG tablet Discontinued 50 ug PO DAILY November 06, 2013 12:00am April 25, 2014 9:59am Start: 11-06-2013 End: 04-25-2014 take 50 ug by mouth once daily Levothyroxine Discontin ued 50 MCG PO DAILY November 06, 2013 3:17pm April 25, 2014 9:59am Comment on above: Take 1 capsule by [facility] once daily. methocarbamol 750 mg oral tablet (18 sources) Muscle Relaxant Start: 11-15-2024 End: 02-13-2025 methocarbamol 750 mg oral tablet Dose : 750 mg = 1 tab(s), Oral, TID, PRN as needed for pain, X 30 day(s), # 90 tab(s), 2 Refill(s), 02/13/25 11:27:00 AM EDT, [facility]acy: [id number], Fibromyalgia Arthritis of both knees, 157, cm, 11/15/24 10:32:00 EDT, Height, kg, 11/15/24 10:32:00 EDT, Dosing Weight Start Date: 11/15/24 Stop Date: 02/13/25 Status: Ordered Quantity: 90.0 Unit: tab(s) Repeat number: 3 Indications: Fibromyalgia; Bilateral primary osteoarthritis of knee; Start: 04-26-2023 End: 07-18-2024 take 1 tablet by mouth every six hours as needed Methocarbamol 500 mg tablet Active 500 mg PO EVERY 6 HOURS as needed April 26, 2023 10:40am Start: 09-20-2016 End: 04-26-2023 take 1 tablet by mouth three times daily Methocarbamol 500 MG tablet Discontinued 500 mg PO THREE TIMES A DAY April 13, 2018 12:00am April 26, 2023 10:30am Comment on above: Take 1 tablet by ashlyn th three times daily as needed. montelukast 10 mg oral tablet (17 sources) Leukotriene Receptor Antagonist Start: take 1 tablet by mouth once daily Montelukast 10 mg tablet Active 10 mg PO DAILY May 06, 2021 12:00am Start: 05-02-2015 End: 06-05-2017 take 1 tablet by mouth once daily Montelukast 10 MG tablet Discontinued 10 mg PO DAILY May 02, 2015 12:00am June 05, 2017 11:44am Start: 11-18-2013 End: 04-25-2014 take 1 tablet by mouth at bedtime Montelukast (Singulair) 10 MG tablet Discontinued 10 mg PO AT BEDTIME November 18, 2013 12:00am April 25, 2014 9:59am Multivitamin preparation (7 sources) Start: 03-28-2024 take 1 tablet by mouth once daily Multivitamin Dose = 1 tab(s), Oral, Daily, 0 Refill(s) Start Date: 03/28/24 Status: Ordered Repeat number: 1 Start: 03-28-2024 take 1 tablet by ashlyn th once daily Multivitamin Dose = 1 tab(s), Oral, Daily, 0 Refill(s) Start Date: 03/28/24 Status: Ordered Start: 05-06-2021 take 1 tablet by ashlyn th once daily Multivitamin Active 1 TABLET PO DAILY May 06, 2021 11:49am Start: 05-06-2021 take 1 tablet by ashlyn th once daily Multivitamin Active 1 TABLET PO DAILY May 06, 2021 12:00am Multivitamin Tablet (2 sources) Start: 05-06-2021 Multivitamin Tablet Active 1 {tbl} PO DAILY May 06, 2021 12:00am Osteo Bi-Flex Advanced oral tablet (1 source) Start: 03-28-2024 take 1 tablet by mouth once daily at mealtime Osteo Bi-Flex Advanced oral tablet Dose = 1 tab(s), Oral, Daily, 0 Refill(s), Take with food Start Date: 03/28/24 Status: Ordered oxybutynin chloride 5 mg oral tablet (7 sources) Cholinergic Muscarinic Antagonist Start: 01-27-2025 End: 04-27-2025 oxybutynin 5 mg oral tablet Dose : 5 mg = 1 tab(s), Oral, TID, # 270 tab(s), 0 Refill(s), [facility]acy: [id number], 157.5, cm, 01/23/25 13:05:00 EDT, Height, kg, 01/23/25 13:05:00 EDT, Dosing Weight Start Date: 01/27/25 Stop Date: 04/27/25 Status: Ordered Quantity: 270.0 Unit: tab(s) Repeat number: 1 Start: 12-30-2024 oxybutynin 5 m g oral tablet Dose : 5 mg = 1 tab(s), Oral, BID, # 180 tab(s), 0 Refill(s), [facility]acy: [id number], 157, cm, 12/16/24 14:49:00 EDT, Height, kg, 12/16/24 14:39:00 EDT, Dosing Weight Start Date: 12/30/24 Status: Ordered Quantity: 180.0 Unit: tab(s) Repeat number: 1 Start: 04-19-2024 oxybutynin 5 m g oral tablet Dose : 5 mg = 1 tab(s), Oral, BID, # 180 tab(s), 0 Refill(s), [facility]acy: [id number], 157, cm, 03/28/24 13:53:00 EDT, Height, kg, 03/28/24 13:53:00 EDT, Dosing Weight Start Date: 04/19/24 Status: Ordered Start: 04-26-2023 take 1 tablet by ashlyn th once daily Oxybutynin Chloride (Ditropan Xl) 5 mg tablet extended release 24hr Active 5 mg PO DAILY April 26, 2023 12:00am pantoprazole 40 mg delayed release oral tablet (10 sources) Proton Pump Inhibitor Start: 05-06-2021 pantoprazole 40 mg oral enteric coated tablet Dose : 40 mg = 1 tab(s), Oral, BID, # 180 tab(s), 3 Refill(s), [facility]acy: [id number], 157, cm, 11/15/24 10:32:00 EDT, Height, kg, 11/15/24 10:32:00 EDT, Dosing Weight Start Date: 12/06/24 Status: Ordered Quantity: 180.0 Unit: tab(s) Repeat number: 4 Comment on above: Take 40 mg by mouth twice daily. Azo Urinary Pain Relief (1 source) Start: 10-18-2024 Azo-Standard S ee Instructions, 1 daily, 0 Refill(s) Start Date: 10/18/24 Status: Ordered Repeat number: 1 predniSONE 20 mg oral tablet (5 sources) Start: 06-23-2022 End: 06-28-2022 take 2 tablets by mouth once daily predniSONE (DELTASONE) 20 mg tablet Take 2 tablets by mouth once daily for 5 days. 10 tablet 0 06/23/2022 06/28/2022 Active Start: 11-18-2013 End: 04-25-2014 Prednisone 2.5 MG tablet Dis continued 5 mg PO November 18, 2013 12:00am April 25, 2014 9:59am Start: 11-18-2013 End: 04-25-2014 Prednisone Discontinued 5 MG PO November 18, 2013 1:02pm April 25, 2014 9:59am Comment on above: Take 2 tablets by mo [facility] once daily for 5 days. pregabalin 75 mg oral capsule (4 sources) Start: 5 End: 5 pregabalin 75 mg oral capsule Dose : 75 mg = 1 cap(s), Oral, TID, # 90 cap(s), 2 Refill(s), Pharmacy: [id number], Fibromyalgia Arthritis of both knees, 157, cm, 11/15/24 10:32:00 EDT, Height, 145.4, kg, 11/15/24 10:32:00 EDT, Dosing Weight Start Date: 11/15/24 Stop Date: 02/13/25 Status: Ordered Quantity: 90.0 Unit: cap(s) Repeat number: 3 Indications: Fibromyalgia; Bilateral primary osteoarthritis of knee; Pumpkin Seed Extract-Soy Germ (Azo Bladder Control) 300 mg Capsule (4 sources) Start: 1 take 1 capsule by mouth once daily Pumpkin Seed Extract-Soy Germ (Azo Bladder Control) 300 mg Capsule Active 1 CAP PO DAILY May 06, 2021 11:49am Start: 05-06-2021 End: 06-01-2023 Pumpkin Seed Extract-Soy Galileo m (Azo Bladder Control) 300 mg Capsule Discontinued 1 NMA PO DAILY May 06, 2021 12:00am June 01, 2023 1:50pm Start: 05-06-2021 take 1 capsule by mo [facility] once daily Pumpkin Seed Extract-Soy Germ (Azo Bladder Control) 300 mg Capsule Active 1 CAP PO DAILY May 06, 2021 12:00am QUEtiapine 50 mg oral tablet (7 sources) Atypical Antipsychotic Start: 04-26-2023 End: 06-14-2025 QUEtiapine 50 mg oral tablet Dose : 100 mg = 2 tab(s), Oral, qHS, # 180 tab(s), 1 Refill(s), Pharmacy: [id number], Bipolar disorder, 157, cm, 12/16/24 14:49:00 EDT, Height, kg, 12/16/24 14:39:00 EDT, Dosing Weight Start Date: 12/16/24 Stop Date: 06/14/25 Status: Ordered Quantity: 180.0 Unit: tab(s) Repeat number: 2 Indications: Bipolar disorder, unspecified; sertraline 25 mg oral tablet (12 sources) Serotonin Reuptake Inhibitor Start: 07-23-2024 sertraline 25 mg ora l tablet Dose : 25 mg = 1 tab(s), Oral, qDay, 0 Refill(s) Start Date: 07/23/24 Status: Ordered Repeat number: 1 Start: 05-06-2021 End: 05-01-2023 take 1 tablet by mouth once daily Sertraline 100 mg tablet Discontinued 100 mg PO DAILY May 06, 2021 12:00am May 01, 2023 11:26am [facility] sertraline (ZOLOFT) 50 mg tablet Take 50 mg by mouth once daily. 0 Active Comment on above: Take 50 mg by mouth once daily. trolamine salicylate 100 mg/ml topical cream (4 sources) Start: 05-06-2021 Trolamine Salicylate (Aspercreme) 10 % Cream Active 1 NMA TOPICAL TWICE A DAY as needed for Skin Cleansing May 06, 2021 12:00am Vitamin D3 (5 sources) Start: 03-28-2024 Vitamin D3 Dose : 20 mcg = 2 tab(s), Oral, Daily, # 60 tab(s), 0 Refill(s) Start Date: 03/28/24 Status: Ordered Quantity: 60.0 Unit: tab(s) Repeat number: 1 Start: 03-28-2024 Vitamin D3 Dos e : 20 mcg = 2 tab(s), Oral, Daily, # 60 tab(s), 0 Refill(s) Start Date: 03/28/24 Status: Ordered Completed/Discontinued Medications Medication Drug Class(es) Dates Sig (Normalized) Sig (Original) acetaminophen 325 mg / HYDROcodone bitartrate 5 mg oral tablet (4 sources) Opioid Agonist take 1 tablet by mouth every six hours as needed HYDROcodone-acetam inophen (NORCO) 5-325 mg per tablet Take 1 tablet by mouth every 6 hours as needed (from pain management physician). 0 Active Comment on above: Take 1 tablet by ashlyn th every 6 hours as needed (from pain management physician). aspirin 81 mg delayed release oral tablet (6 sources) Platelet Aggregation Inhibitor, Nonsteroidal Anti-inflammatory Drug Start: 04-26-2023 End: 06-01-2023 take 1 tablet by mouth once daily Aspirin (Adult Aspirin Regimen) 81 mg tablet,delayed release (DR/EC) Discontinued 81 mg PO DAILY 90 3 May 01, 2023 12:08pm June 01, 2023 2:11pm Start: 01-14-2023 End: 02-13-2023 take 1 tablet by mouth once daily aspirin 325 mg tablet Take 1 tablet by mouth once daily. 30 tablet 0 01/14/2023 02/13/2023 Active Comment on above: Take 1 tablet by ashlyn th once daily. Beets Cardio (1 source) Start: 03-28-2024 Beets Cardio Beets Cardio, See Instructions, two daily, 0 Refill(s), 163.2 Start Date: 03/28/24 Status: Ordered brexpiprazole 1 mg oral tablet (12 sources) Atypical Antipsychotic Start: 04-24-2024 End: 05-24-2024 Rexulti 1 mg oral tablet Dose : 1 mg = 1 tab(s), Oral, qDay, # 30 tab(s), 0 Refill(s) Start Date: 04/24/24 Stop Date: 05/24/24 Status: Ordered Quantity: 30.0 Unit: tab(s) Repeat number: 1 Start: 04-26-2023 take 1 tablet by ashlyn th once daily Brexpiprazole (Rexulti) 0.25 mg tablet Active 0.25 mg PO DAILY April 26, 2023 12:00am take 1 tablet by ashlyn th once daily brexpiprazole (REXULTI) 0.25 mg tablet Take 0.25 mg by mouth once daily. 0 Active Comment on above: Take 0.25 mg by mout h once daily. busPIRone hydrochloride 5 mg oral tablet (8 sources) Start: 6 End: 8 take 3 tablets by mouth three times daily Buspirone 5 MG tablet Discontinued 15 mg PO THREE TIMES A DAY March 12, 2016 12:00am September 18, 2017 12:06pm Start: 03-12-2016 End: 09-18-2017 take 15 mg by mouth three times daily Buspirone Discontinued 15 MG PO THREE TIMES A DAY March 12, 2016 5:52pm September 18, 2017 12:06pm take 2 tablets by mo uth three times daily busPIRone (BUSPAR) 10 mg tablet Take 20 mg by mouth three times daily. 0 Active Comment on above: Take 20 mg by mouth three times daily. carBAMazepine 100 mg chewable tablet (12 sources) Mood Stabilizer Start: 3 End: 3 take 1 tablet by mouth once Carbamazepine 100 mg tablet,chewable Discontinued 100 mg PO ONCE April 26, 2023 10:38am May 04, 2023 2:51pm Start: 04-26-2023 End: 05-04-2023 take 1 tablet by mouth at bedtime Carbamazepine 200 mg tablet Discontinued 200 mg PO BEDTIME April 26, 2023 12:00am May 04, 2023 2:51pm Start: 05-06-2021 End: 04-26-2023 take 1 tablet by mouth twice daily Carbamazepine 100 mg tablet,chewable Discontinued 200 mg PO TWICE A DAY April 26, 2023 10:23am April 26, 2023 10:41am Start: 05-06-2021 take 200 mg by mouth at bedtim e Carbamazepine Active 200 MG PO AT BEDTIME May 06, 2021 11:49am carBAMazepine (T EGRETOL) 200 mg tablet Take 100 mg by mouth once daily. At noon 0 Active take 1 tablet by ashlyn th once daily at bedtime carBAMazepine (TEGRETOL) 200 mg tablet Take 200 mg by mouth daily at bedtime. 0 Active Comment on above: Take 100 mg by mouth once daily. At noon Take 200 mg by mouth daily at bedtime. clonazePAM 1 mg oral tablet (4 sources) Benzodiazepine Start: 08-15-19 End: 10-09-19 18 take 1 tablet by mouth once daily Clonazepam 1 MG tablet Discontinued 1 mg PO DAILY August 15, 2017 1:00am October 09, 2017 12:01pm colestipol hydrochloride 1000 mg oral tablet (20 sources) Bile Acid Sequestrant Start: 01-28-20 Colestid 1 g oral tablet Dose : 1 gram(s) = 1 tab(s), Oral, BID, # 180 tab(s), 0 Refill(s), [facility]acy: [id number], 157.5, cm, 01/23/25 13:05:00 EDT, Height, kg, 01/23/25 13:05:00 EDT, Dosing Weight Start Date: 01/27/25 Status: Ordered Quantity: 180.0 Unit: tab(s) Repeat number: 1 Start: 10-10-2024 Colestid 1 g o ral tablet Dose : 1 gram(s) = 1 tab(s), Oral, BID, # 180 tab(s), 0 Refill(s), Pharmacy: [id number], 157, cm, 03/28/24 13:53:00 EDT, Height, kg, 03/28/24 13:53:00 EDT, Dosing Weight Start Date: 10/10/24 Status: Ordered Quantity: 180.0 Unit: tab(s) Repeat number: 1 Start: 04-19-2024 Colestid 1 g o ral tablet Dose : 1 gram(s) = 1 tab(s), Oral, BID, # 180 tab(s), 0 Refill(s), [facility]acy: [id number], 157, cm, 03/28/24 13:53:00 EDT, Height, kg, 03/28/24 13:53:00 EDT, Dosing Weight Start Date: 04/19/24 Status: Ordered Start: 07-12-2021 End: 06-19-2023 Colestipol 1 gram tablet Dis continued 1 g PO TWICE A DAY 60 3 July 18, 2022 12:49pm September 26, 2022 4:12pm Start: 07-12-2021 End: 11-26-2021 take 2 g by mouth twice daily Colestipol Discontinued 2 GM PO TWICE A DAY 120 July 12, 2021 6:48pm November 26, 2021 2:13pm Comment on above: Take 1 g by mouth tw ice daily. COMPOUNDED PRESCRIPTION (4 sources) Start: 03-10-20 15 COMPOUNDED PRESCRIPTION Indications: DDD (degenerative disc disease), lumbar Bariatric shower chair Dx 722.52 1 Each 0 03/10/2015 Active Comment on above: Bariatric shower perico ir Dx 722.52 cyclobenzaprine hydrochloride 10 mg oral tablet (4 sources) Muscle Relaxant Start: 03-12-20 16 End: 06-05-20 17 take 1 tablet by mouth three times daily as needed for muscle spasms Cyclobenzaprine 10 MG tablet Discontinued 10 mg PO THREE TIMES A DAY as needed for Muscle Spasm 20 0 March 12, 2016 12:00am June 05, 2017 11:47am Digestive Enzymes (1 source) Start: 12-14-19 End: 09-26-19 take 1 tablet by mouth three times daily Digestive Enzymes Discontinued 1 TABLET PO THREE TIMES A DAY December 13, 2021 12:00am September 26, 2022 3:54pm Digestive Enzymes tablet (2 sources) Start: 12-14-19 End: 09-26-19 take 1 tablet by mouth three times daily Digestive Enzymes tablet Discontinued 1 {tbl} PO THREE TIMES A DAY December 13, 2021 12:00am September 26, 2022 3:54pm Start: 12-13-2021 End: 09-26-2022 take 1 tablet by mouth three times daily Digestive Enzymes tablet Discontinued 1 {tbl} PO THREE TIMES A DAY December 13, 2021 12:00am September 26, 2022 3:54pm doxepin hydrochloride 50 mg oral capsule (4 sources) Tricyclic Antidepressant Start: 03-12-2016 End: 06-05-2017 take 50-100 mg by mouth at bedtime as needed Doxepin 50 MG capsule Discontinued 50 - 100 mg PO AT BEDTIME NEEDED as needed for Insomnia March 12, 2016 12:00am June 05, 2017 11:47am Start: 03-12-2016 End: 06-05-2017 take 50-100 mg by mouth at bedtime as needed Doxepin Discontinued 50 - 100 MG PO AT BEDTIME NEEDED March 12, 2016 5:52pm June 05, 2017 11:47am DULoxetine 60 mg delayed release oral capsule (8 sources) Serotonin and Norepinephrine Reuptake Inhibitor Start: 03-12-2016 End: 06-05-2017 take 1 capsule by mouth twice daily Duloxetine 60 MG Capsule.Dr Discontinued 60 mg PO TWICE A DAY March 12, 2016 12:00am June 05, 2017 11:47am take 1 capsule by mouth twice da zarina DULoxetine (CYMBALTA) 20 mg capsule Take 20 mg by mouth twice daily. 0 Active Comment on above: Take 20 mg by mouth twice daily. eluxadoline 100 mg oral tablet (4 sources) mu-Opioid Receptor Agonist Start: 8 End: 1 take 1 tablet by mouth once daily Eluxadoline (Viberzi) 100 MG tablet Discontinued 100 mg PO DAILY April 13, 2018 12:00am May 07, 2021 8:50am FLUoxetine 20 mg oral capsule (4 sources) Serotonin Reuptake Inhibitor Start: 4 End: 4 take 2 capsules by mouth once daily Fluoxetine 20 MG capsule Discontinued 40 mg PO DAILY November 06, 2013 12:00am April 25, 2014 9:59am Start: 11-06-2013 End: 04-25-2014 take 40 mg by mouth once daily Fluoxetine Discontinued 40 MG PO DAILY November 06, 2013 3:17pm April 25, 2014 9:59am Fluticasone Propion-Salmeterol (4 sources) Corticosteroid, beta2-Adrenergic Agonist Start: 05-03-2015 End: 06-05-2017 take 1 puff(s) by inhalation twice daily Fluticasone Propion-Salmeterol (Advair 250/50 Mcg Diskus) 1 PUFF inhaler Discontinued 1 PUFF INHALATION TWICE A DAY May 03, 2015 9:49am June 05, 2017 11:46am Start: 05-03-2015 End: 06-05-2017 take 1 puff(s) by inhalation twice daily Fluticasone Propion-Salmeterol (Advair 250/50 Mcg Diskus) 1 PUFF inhaler Discontinued 1 NMA INHALATION TWICE A DAY 1 May 03, 2015 12:00am June 05, 2017 11:46am Start: 05-03-2015 End: 06-05-2017 take 1 puff(s) by inhalation twice daily Fluticasone Propion-Salmeterol (Advair 250/50 Mcg Diskus) 1 PUFF inhaler Discontinued 1 NMA INHALATION TWICE A DAY May 03, 2015 12:00am June 05, 2017 11:46am Start: 05-03-2015 End: 06-05-2017 take 1 puff(s) by inhalation twice daily Fluticasone Propion-Salmeterol (Advair 250/50 Mcg Diskus) 1 PUFF inhaler Discontinued 1 PUFF INHALATION TWICE A DAY May 03, 2015 12:00am June 05, 2017 11:46am lamoTRIgine 25 mg oral tablet (4 sources) Mood Stabilizer, Anti-epileptic Agent Start: 09-18-2017 End: 10-09-2017 Lamotrigine (Lamictal) 25 MG tablet Discontinued TWICE A DAY September 18, 2017 1:00am October 09, 2017 12:06pm lisinopril 10 mg oral tablet (8 sources) Angiotensin Converting Enzyme Inhibitor Start: 05-02-2015 End: 06-05-2017 take 1 tablet by mouth once daily Lisinopril 10 MG tablet Discontinued 10 mg PO DAILY May 02, 2015 12:00am June 05, 2017 11:44am Start: 11-06-2013 End: 04-25-2014 take 2 tablets by mouth once daily Lisinopril 10 MG tablet Discontinued 20 mg PO DAILY November 06, 2013 12:00am April 25, 2014 9:59am Start: 11-06-2013 End: 04-25-2014 take 20 mg by mouth once daily Lisinopril Discontinued 20 MG PO DAILY November 06, 2013 3:19pm April 25, 2014 9:59am metoprolol tartrate 25 mg oral tablet (20 sources) beta-Adrenergic Margaret Start: 01-23-2025 End: 01-24-2025 metoprolol tartrate 25 mg oral tablet Start: 01/24/25 8:00:00 AM EDT, Dose = 25 mg, = 1 tab(s), Oral, Hold if SBP (mmHg) Start Date: 01/24/25 Stop Date: 01/24/25 Status: Completed Repeat number: 1 Start: 01-08-2025 End: 01-08-2025 take 1 tablet by mouth in the evening metoprolol tartrate 25 mg oral tablet Start: 01/08/25 5:00:00 PM EDT, Dose = 25 mg, = 1 tab(s), Oral, 01/03/25 8:31:00 EDT Start Date: 01/08/25 Stop Date: 01/08/25 Status: Completed Repeat number: 1 Start: 06-01-2023 End: 01-09-2025 take 1 tablet by mouth twice daily Metoprolol Tartrate 25 mg tablet Active 25 mg PO TWICE A DAY 180 3 May 20, 2024 8:04am Start: 04-26-2023 End: 06-01-2023 take 1 tablet by mouth twice daily Metoprolol Tartrate 37.5 mg tablet Discontinued 37.5 mg PO TWICE A DAY 180 May 01, 2023 12:07pm June 01, 2023 2:11pm Start: 01-14-2023 End: 04-14-2023 take 1 tablet by mouth every twelve hours metoprolol tartrate, short acting, 37.5 mg tab Take 1 tablet by mouth every 12 hours. 90 tablet 2 01/14/2023 04/14/2023 Active Start: 05-02-2015 End: 06-05-2017 take 1 tablet by mouth twice daily Metoprolol Tartrate 25 MG tablet Discontinued 25 mg PO TWICE A DAY May 02, 2015 12:00am June 05, 2017 11:44am Start: 11-06-2013 End: 04-25-2014 take 1 tablet by mouth once daily Metoprolol Tartrate 25 MG tablet Discontinued 25 mg PO DAILY November 06, 2013 12:00am April 25, 2014 9:59am Comment on above: Take 1 tablet by ashlyn th every 12 hours. Multivits,Calcium& Minerals-FA 267 mcg tab (4 sources) take 1 tablet by mouth once daily Multivits,Calcium& Minerals-FA 267 mcg tab Take 1 tablet by mouth once daily. 0 Active Comment on above: Take 1 tablet by ashlyn once daily. nystatin 100 unt/mg topical powder (4 sources) Polyene Antifungal Start: 10-08-2015 End: 06-05-2017 Nystatin (Nyamyc) 1 APPLIC bottle Discontinued 1 NMA TOPICAL TWICE A DAY 1 0 October 08, 2015 1:00am June 05, 2017 11:43am Start: 10-08-2015 End: 06-05-2017 Nystatin (Nyamyc) 1 APPLIC b ottle Discontinued 1 APPLIC TOPICAL TWICE A DAY 1 October 08, 2015 7:52pm June 05, 2017 11:43am omeprazole 40 mg delayed release oral capsule (4 sources) Proton Pump Inhibitor Start: 05-14-2021 End: 07-16-2021 take 1 capsule by mouth twice daily Omeprazole 40 mg capsule,delayed release(DR/EC) Discontinued 40 mg PO TWICE A DAY 120 0 May 14, 2021 12:00am July 16, 2021 1:46pm Take one capsule two time a day for eight weeks. rifAXIMin 550 mg oral tablet (10 sources) Rifamycin Antibacterial Start: 05-19-2023 End: 06-02-2023 take 1 tablet by mouth three times daily Rifaximin (Xifaxan) 550 mg tablet Discontinued 550 mg PO THREE TIMES A DAY 42 14 0 May 19, 2023 12:00am June 01, 2023 12:00am June 02, 2023 12:04am Start: 05-07-2021 End: 09-26-2022 take 1 tablet by mouth three times daily Rifaximin 550 mg tablet Discontinued 550 mg PO THREE TIMES A DAY 42 0 May 26, 2021 9:37am September 26, 2022 3:43pm Take one tab by mouth three times a day for fourteen days. sucralfate 1000 mg oral tablet (4 sources) Aluminum Complex Start: 05-14-2021 End: 09-26-2022 take 1 tablet by mouth three times daily before mealtime Sucralfate 1 gram tablet Discontinued 1 g PO before meals 180 0 May 14, 2021 12:00am September 26, 2022 3:44pm Take one tab by mouth three times a day before meals for eights weeks. traZODone hydrochloride 150 mg oral tablet (4 sources) Serotonin Reuptake Inhibitor Start: 06-05-2017 End: 08-15-2017 Trazodone 150 MG tablet Discontinued 200 mg PO June 05, 2017 12:00am August 15, 2017 11:10am Start: 06-05-2017 End: 08-15-2017 Trazodone Discontinued 200 M G PO June 05, 2017 11:43am August 15, 2017 11:10am Problems Active Problems Problem Classification Problem Date Documented Da te Episodic/Chronic Anxiety disorders (9 sources) Anxiety; Translations: [Anxiety disorder, unspecified] 03-14-2018 Chronic Asthma (5 sources) Asthma; Translations: [Unspecified asthma, uncomplicated] 07-12-2016 Chronic Cardiac dysrhythmias (3 sources) Atrial fibrillation; Translations: [Unspecified atrial fibrillation] Onset: 3 01-14-2023 Chronic Chronic obstructive pulmonary disease and bronchiectasis (19 sources) Acute exacerbation of chronic obstructive airways disease with asthma; Translations: [Chronic obstructive pulmonary disease with (acute) exacerbation] Onset: 5 06-11-2015 Chronic Chronic ulcer of skin (4 sources) Chronic ulcer of thigh; Translations: [Non-pressure chronic ulcer of right thigh with fat layer exposed] 03-14-2018 Chronic Coronary atherosclerosis and other heart disease (5 sources) Angina pectoris 03-28-2024 Chronic Diseases of white blood cells (1 source) Band neutrophil count above reference range; Translations: [Bandemia] Onset: 3 01-12-2023 Chronic Disorders of lipid metabolism (7 sources) Dyslipidemia; Translations: [Hyperlipidemia, unspecified] 04-02-2024 Chronic Esophageal disorders (11 sources) Gastroesophageal reflux disease; Translations: [Gastro-esophageal reflux disease without esophagitis] Onset: 5 09-26-2022 Chronic Essential hypertension (20 sources) Hypertensive disorder; Translations: [Essential (primary) hypertension] Onset: 3 03-14-2018 Chronic Fever of unknown origin (2 sources) Fever, unspecified; Translations: [Fever] Onset: 3 01-12-2023 Episodic Fluid and electrolyte disorders (4 sources) Hypokalemia; Translations: [Hypokalemia] 04-15-2018 Episodic Gastritis and duodenitis (9 sources) Gastritis; Translations: [Gastritis, unspecified, without bleeding] 05-25-2021 Episodic Gastroduodenal ulcer (except hemorrhage) (5 sources) Gastric ulcer 03-28-2024 Chronic Genitourinary symptoms and ill-defined conditions (4 sources) Urinary incontinence 09-16-2024 Chronic Genitourinary symptoms and ill-defined conditions (4 sources) Bladder dysfunction 09-16-2024 Episodic Malaise and fatigue (6 sources) Asthenia; Translations: [Weakness] Onset: 5 01-02-2025 Episodic Mood disorders (18 sources) Depressive disorder; Translations: [Depression] Onset: 3 03-14-2018 Chronic Nonmalignant breast conditions (2 sources) Breast lump; Translations: [Unspecified lump in unspecified breast] Onset: 5 Episodic Nonspecific chest pain (4 sources) Atypical chest pain; Translations: [Other chest pain] 04-15-2018 Episodic Open wounds of extremities (1 source) Open wound of left foot; Translations: [Unspecified open wound, left foot, initial encounter] Onset: 5 Episodic Osteoarthritis (13 sources) Bilateral primary osteoarthritis of knee; Translations: [Primary gonarthrosis, bilateral] Onset: 8 05-23-2022 Chronic Other aftercare (1 source) Follow-up status; Translations: [Encounter for follow-up examination after completed treatment for conditions other than malignant neoplasm] Onset: 5 Episodic Other aftercare (1 source) Post-discharge follow-up 02-05-2025 Episodic Other and unspecified benign neoplasm (8 sources) Osteochondroma of femur; Translations: [Benign neoplasm of long bones of unspecified lower limb] 05-23-2022 Episodic Other circulatory disease (7 sources) H/O: atrial fibrillation; Translations: [Personal history of other diseases of the circulatory system] 04-02-2024 Episodic Other circulatory disease (1 source) History of cerebrovascular disease; Translations: [Personal history of other diseases of the circulatory system] Onset: 5 Episodic Other connective tissue disease (6 sources) Fibromyalgia; Translations: [Fibromyalgia] Onset: 5 Episodic Other connective tissue disease (4 sources) Hematoma 01-02-2025 Episodic Other connective tissue disease (2 sources) Fibromyalgia; Translations: [Fibromyalgia] Onset: 5 Episodic Other diseases of bladder and urethra (4 sources) Overactive bladder 09-16-2024 Chronic Other diseases of veins and lymphatics (2 sources) Lymphedema; Translations: [Lymphedema, not elsewhere classified] Onset: 5 Chronic Other gastrointestinal disorders (4 sources) Irritable bowel syndrome with diarrhea; Translations: [Irritable bowel syndrome with diarrhea] 09-26-2022 Chronic Other gastrointestinal disorders (10 sources) Irritable bowel syndrome; Translations: [Irritable bowel syndrome without diarrhea] Onset: 5 05-03-2021 Chronic Other gastrointestinal disorders (2 sources) Irritable bowel syndrome with diarrhea; Translations: [Irritable bowel syndrome] Chronic Other gastrointestinal disorders (1 source) Irritable bowel syndrome without diarrhea; Translations: [Irritable bowel syndrome, unspecified] Onset: 5 Chronic Other gastrointestinal disorders (4 sources) Dysphagia; Translations: [Dysphagia, unspecified] 05-03-2021 Episodic Other injuries and conditions due to external causes (1 source) Other injury of unspecified body region, initial encounter; Translations: [Other injury of unspecified body region, initial encounter] Onset: 5 Episodic Other lower respiratory disease (5 sources) Cough 04-24-2017 Episodic Other nervous system disorders (5 sources) Neuropathy 11-16-2016 Chronic Other nervous system disorders (3 sources) Other chronic pain; Translations: [Chronic right-sided low back pain with right-sided sciatica] Onset: 3 Chronic Other nervous system disorders (1 source) Polyneuropathy; Translations: [Polyneuropathy, unspecified] Chronic Other nervous system disorders (1 source) Chronic pain; Translations: [Other chronic pain] Onset: 5 Chronic Other nervous system disorders (1 source) Polyneuropathy, unspecified; Translations: [Polyneuropathy, unspecified] Onset: 5 Chronic Other nervous system disorders (1 source) Walking disability; Translations: [Difficulty in walking, not elsewhere classified] Onset: 5 Chronic Other non-traumatic joint disorders (4 sources) Arthritis of knee 10-18-2024 Chronic Other nutritional; endocrine; and metabolic disorders (4 sources) Obesity; Translations: [Obesity, unspecified] 03-14-2018 Chronic Other nutritional; endocrine; and metabolic disorders (17 sources) Morbid obesity; Translations: [Morbid (severe) obesity due to excess calories] Onset: 3 05-10-2013 Chronic Other nutritional; endocrine; and metabolic disorders (1 source) Severe obesity; Translations: [Morbid (severe) obesity due to excess calories] Onset: 3 01-11-2023 Chronic Other nutritional; endocrine; and metabolic disorders (1 source) Body mass index 40+ - severely obese; Translations: [Body mass index (BMI) 60.0-69.9, adult] Chronic Other nutritional; endocrine; and metabolic disorders (1 source) Body mass index (BMI) 60.0-69.9, adult; Translations: [Body mass index [BMI] 60.0-69.9, adult] Onset: 5 Chronic Other nutritional; endocrine; and metabolic disorders (3 sources) Morbid (severe) obesity due to excess calories; Translations: [Morbid (severe) obesity due to excess calories] Onset: 4 Chronic Other upper respiratory disease (2 sources) Allergic rhinitis, unspecified; Translations: [Allergic rhinitis, unspecified] Onset: 5 Chronic Other upper respiratory infections (1 source) Acute sinusitis, unspecified; Translations: [Acute sinusitis, unspecified] Onset: 4 Episodic Otitis media and related conditions (4 sources) Otitis media; Translations: [Otitis media, unspecified, unspecified ear] 03-14-2018 Episodic Phlebitis; thrombophlebitis and thromboembolism (5 sources) Deep venous thrombosis 01-17-2018 Episodic Pulmonary heart disease (8 sources) Pulmonary hypertension; Translations: [Pulmonary hypertension, unspecified] Onset: 4 04-02-2024 Chronic Residual codes; unclassified (4 sources) History of headache; Translations: [Personal history of other specified conditions] 03-14-2018 Episodic Residual codes; unclassified (4 sources) Chronic pain 01-02-2025 Episodic Residual codes; unclassified (1 source) Tobacco user; Translations: [Tobacco use] Onset: 5 Episodic Residual codes; unclassified (1 source) Tobacco use; Translations: [Tobacco use] Onset: 5 Episodic Screening and history of mental health and substance abuse codes (4 sources) Tobacco use and exposure - finding; Translations: [Personal history of nicotine dependence] 03-14-2018 Episodic Septicemia (except in labor) (10 sources) Sepsis; Translations: [Sepsis, unspecified organism] Onset: 3 03-14-2018 Episodic Skin and subcutaneous tissue infections (20 sources) Cellulitis and abscess of lower limb; Translations: [Cellulitis of unspecified part of limb] Onset: 3 03-14-2018 Episodic Spondylosis; intervertebral disc disorders; other back problems (20 sources) Degeneration of lumbar intervertebral disc; Translations: [Other intervertebral disc degeneration, lumbar region] Onset: 3 05-10-2013 Chronic Spondylosis; intervertebral disc disorders; other back problems (20 sources) Low back pain; Translations: [Low back pain] Onset: 3 05-10-2013 Episodic Substance-related disorders (7 sources) Tobacco user; Translations: [Nicotine dependence, unspecified, uncomplicated] Onset: 3 05-29-2013 Chronic Superficial injury; contusion (2 sources) Contusion of chest; Translations: [Contusion of thorax, unspecified, initial encounter] Onset: 5 Episodic Syncope (4 sources) Syncope; Translations: [Syncope and collapse] 04-15-2018 Episodic Thyroid disorders (16 sources) Hypothyroidism; Translations: [Hypothyroidism, unspecified] Onset: 3 Chronic Unclassified (5 sources) SUMMARY Onset: 3 Unclassified (1 source) Acute exacerbation of chronic low back pain; Translations: [Acute exacerbation of chronic low back pain] Onset: 5 Unclassified (1 source) Low back pain, unspecified; Translations: [Low back pain, unspecified] Onset: 5 Unclassified (1 source) Injury of left foot 02-05-2025 Urinary tract infections (1 source) Urinary tract infectious disease; Translations: [Urinary tract infection, site not specified] Onset: 5 Episodic Past or Other Problems Problem Classification Problem Date Documented Date Episodic/Chronic Acute and unspecified renal failure (4 sources) Acute injury of kidney; Translations: [Acute kidney failure, unspecified] Onset: 07-20-2013 Episodic Conditions associated with dizziness or vertigo (3 sources) Lightheadedness; Translations: [Dizziness and giddiness] Onset: 07-09-2024 05-16-2024 Episodic Deficiency and other anemia (5 sources) Anemia; Translations: [Anemia, unspecified] Onset: 05-29-2013 05-29-2013 Episodic Lymphadenitis (5 sources) Hilar lymphadenopathy ; Translations: [Localized enlarged lymph nodes] Onset: 06-11-2015 06-11-2015 Episodic Other circulatory disease (3 sources) Personal history of other diseases of the circulatory system; Translations: [Personal history of other diseases of the circulatory system] Onset: 07-09-2024 Episodic Other non-traumatic joint disorders (1 source) Pain in right knee; Translations: [Acute pain of both knees] Onset: 04-05-2024 Episodic Other non-traumatic joint disorders (1 source) Pain in left knee; Translations: [Acute pain of both knees] Onset: 04-05-2024 Episodic Sprains and strains (1 source) Strain of muscle, fascia and tendon of lower back, initial encounter; Translations: [Strain of lumbar region, initial encounter] Onset: 04-05-2024 Episodic Results Test Name Value Interpretation Reference Range Facility Urine Cultureon 02-01-2025 [facility] Proteus mirabilis [place] Count 25,000-50,000 Proteus mirabilis Proteus mirabilis Proteus mirabilis: REACTION Ampicillin Islt CYNDY <=2 S Ampicillin+Sulbac Islt CYNDY <=2 Cefepime Islt CYNDY <=0.12 S cefTRIAXone Islt CYNDY <=0.25 S Ciprofloxacin Islt CYNDY <=0.06 S Gentamicin Islt CYNDY <=1 S levoFLOXacin Islt CYNDY <=0.12 S Meropenem Islt CYNDY <=0.25 S Nitrofurantoin Islt CYNDY 128 R Pip+Tazo Islt CYNDY <=4 S TMP SMX Islt CYNDY <=20 S Proteus mirabilis: REACTION Ampicillin Islt CYNDY <=2 S Ampicillin+Sulbac Islt CYNDY <=2 Cefepime Islt CYNDY <=0.12 S cefTRIAXone Islt CYNDY <=0.25 S Ciprofloxacin Islt CYNDY <=0.06 S Gentamicin Islt CYNDY <=1 S levoFLOXacin Islt CYNDY <=0.12 S Meropenem Islt CYNDY <=0.25 S Nitrofurantoin Islt CYNDY R Pip+Tazo Islt CYNDY <=4 S TMP SMX Islt CYNDY <=20 S Normal [facility] Comment on above: Performed By: #### L 400. #### [facility] [address] [place], [address] Bilirubin Test strip Ql (U)O rdered By: Annette Samano on 01-29-2025 Bilirubin Ql (U) Negative Negative [facility] Ketones Test strip Ql (U)Ord ered By: Annette Samano on 01-29-2025 Ketones Ql (U) Negative Negative [facility] Protein Test strip Ql (U)Ord ered By: Annette Samano on 01-29-2025 Protein Ql (U) Negative Negative [facility] Urinalysis, Routine (Dipstic k)on 01-29-2025 BILIRUBIN URINE Negative Normal Negative [facility] Comment on above: Order Comment: Urine , Random Performed By: #### L 400. #### [facility] [address] [place], [address] GLUCOSE, UR Normal Normal Normal [facility] Comment on above: Order Comment: Urine , Random Performed By: #### L 400. #### [facility] [address] [place], [address] KETONE UR Negative Normal Negative [facility] Comment on above: Order Comment: Urine , Random Performed By: #### L 400. #### [facility] [address] [place], [address] LEUK ESTERASE 100 /ul Abnormal Negative [facility] Comment on above: Order Comment: Urine , Random Performed By: #### L 400. #### [facility] [address] [place], [address] OCCULT BLOOD-UR Negative Normal Negative [facility] Comment on above: Order Comment: Urine , Random Performed By: #### L 400.2010, #### [facility] [address] [place], [address] pH UR 7.0 Normal 5.0 - 8.0 [facility] Comment on above: Order Comment: Urine , Random Performed By: #### L 400.2010, #### [facility] [address] [place], [address] PROT DIPSTX Negative Normal Negative [facility] Comment on above: Order Comment: Urine , Random Performed By: #### L 400.2010, #### [facility] [address] [place], [address] SP.GR. DIPSTX 1.010 Normal 1.002-1.030 [facility] Comment on above: Order Comment: Urine , Random Performed By: #### L 400.2010, #### [facility] [address] [place], [address] UROBILI Normal Normal Normal [facility] Comment on above: Order Comment: Urine , Random Performed By: #### L 400.2010, #### [facility] [address] [place], [address] Urine clarityOrdered By: Radha Samano on 01-29-2025 Clarity (U) Clear Normal Clear [facility] Comment on above: Order Comment: Urine , Random Performed By: #### L 400.2010, #### [facility] [address] [place], [address] Urine color determinationOrd ered By: Annette Samano on 01-29-2025 Color (U) Yellow Normal Yellow [facility] Comment on above: Order Comment: Urine , Random Performed By: #### L 400.2010, #### [facility] [address] [place], [place], [id number] Urine cultureOrdered By: Radha gaetano Samano on 01-29-2025 Bacteria identified Cx Nom (U) Proteus mirabilis Abnormal [facility] Bacteria identified Cx Nom (U) Proteus mirabilis#2 Abnormal [facility] Urine glucose detectionOrder ed By: Annette Samano on 01-29-2025 Glucose Ql (U) Normal mg/dl Normal [facility] Urine leukocyte esterase det ection by dipstickOrdered By: Annette Samano on 01-29-2025 Leukocyte esterase Test strip Ql (U) 100 /ul High Negative [facility] Urine nitrite test by dipsti ckOrdered By: Annette Samano on 01-29-2025 Nitrite Ql (U) Negative Normal Negative [facility] Comment on above: Order Comment: Urine , Random Performed By: #### L 400.2010, M100.0 #### [facility] [address] [place] [address], [id number] Urine pHOrdered By: Annette crowe on 01-29-2025 pH (U) 7.0 [pH] 5.0 - 8.0 [facility] Urine specific gravity measu rementOrdered By: Annette Samano on 01-29-2025 Specific gravity (U) [Rel density] 1.010 1.002-1.030 [facility] Urine urobilinogen measureme ntOrdered By: Annette Samano on 01-29-2025 Urobilinogen Ql (U) Normal mg/dl Normal [facility] LABORATORYOrdered By: Noreen Wetzel on 01-14-2025 Appearance (U) Cloudy *ABN* (01/14/25 9:27 AM) Invalid Interpretation Code Clear AO Auto Urine SS Bacteria LM.HPF (Urine sed) [#/Area] 4 /[HPF] Invalid Interpretation Code Negative AO Auto Urine SS Bilirubin Ql (U) Negative (01/14/25 9:27 AM) Normal Negative AO Auto Urine SS Calcium oxalate crystals LM.HPF (Urine sed) [#/Area] Trace /HPF Normal AO Auto Urine SS Color (U) Yellow (01/14/25 9:27 AM) Normal AO Auto Urine SS Crystals.amorphous LM.HPF (Urine sed) [#/Area] 2 /[HPF] Normal AO Auto Urine SS Glucose Test strip (U) [Mass/Vol] Negative Normal Negative AO Auto Urine SS Hemoglobin Auto test strip (U) [Mass/Vol] Moderate *ABN* (01/14/25 9:27 AM) Invalid Interpretation Code Negative AO Auto Urine SS Ketones Ql (U) Negative Normal Negative AO Auto Ur ine SS UA Leuk Est Moderate *ABN* (01/14/25 9:27 AM) Invalid Interpretation Code Negative AO Auto Urine SS UA Nitrite Positive *ABN* (01/14/25 9:27 AM) Invalid Interpretation Code Negative AO Auto Urine SS UA pH 7.5 (01/14/25 9:27 AM) Normal 5.0 - 8.0 AO Auto Urine SS UA Protein 30 mg/dL Normal Negative AO Auto Urine SS UA RBC 3-5 /HPF Invalid Interpretation Code 0-2 AO Auto Urine SS UA Spec Grav 1.015 (01/14/25 9:27 AM) Normal 1.015-1.025 AO Auto Urine SS UA Specimen Type Clean Catch (01/14/25 9:27 AM) Normal AO Auto Urine SS UA Squam Epithelial 25-50 /HPF Invalid Interpretation Code 0-20 AO Auto Urine SS UA Urobilinogen 0.2 E.U./dL Normal 0.2-1.0 AO Auto Urine SS WBC LM.HPF (Urine sed) [#/Area] LOADED /HPF Invalid Interpretation Code 0-5 AO Auto Urine SS No Panel Informationon 01-14 Culture Urine >100,000 cfu/ml Multiple bacterial morphotypes present. Probable Contamination. Suggest recollection if clinically indicated. [facility] UAon 01-14-2025 Color (U) Yellow Normal [facility] Comment on above: Performed By: #### U AMIC, UA #### [address] [address] Glucose (U) [Mass/Vol] Negative Normal Negative [facility] Comment on above: Performed By: #### U AMIC, UA #### [facility] [address] [place], [place] [address] Ketones Ql (U) Negative Normal Negative [facility] Comment on above: Performed By: #### U AMIC, UA #### [place] [address] UA Appear Cloudy Abnormal Clear [facility] Comment on above: Performed By: #### U AMIC, UA #### [address] [address] UA Blood Moderate Abnormal Negative [facility] Comment on above: Performed By: #### U AMIC, UA #### [address] [address] UA Leuk Est Moderate Abnormal Negative [facility] Comment on above: Performed By: #### U AMIC, UA #### [place] [address] UA Nitrite Positive Abnormal Negative [facility] Comment on above: Performed By: #### U AMIC, UA #### [place] [address] UA pH 7.5 Normal 5.0 - 8.0 [facility] Comment on above: Performed By: #### U AMIC, UA #### [place] [address] UA Protein 30 mg/dL Normal Negative [facility] Comment on above: Performed By: #### U AMIC, UA #### [address] [address] UA Spec Grav 1.015 Normal 1.015-1.025 [facility] Comment on above: Performed By: #### U AMIC, UA #### [address] [address] UA Specimen Type Clean Catch Normal [facility] Comment on above: Performed By: #### U AMIC, UA #### [place] [address] UA Urobilinogen 0.2 E.U./dL Normal 0.2-1.0 [facility] Comment on above: Performed By: #### U AMIC, UA #### [address] [address] Urobilinogen (U) [Mass/Vol] Negative Normal Negative [facility] Comment on above: Performed By: #### U AMIC, UA #### [address] [address] UAMICon 01-14-2025 UA Amorphus 2+ /hpf Normal [facility] Comment on above: Performed By: #### U AMIC, UA #### [address] [address] UA Bacteria 4+ /hpf Abnormal Negative [facility] Comment on above: Performed By: #### U AMIC, UA #### [address] [address] UA CA Ox Crystal Trace Normal [facility] Comment on above: Performed By: #### U AMIC, UA #### [place] [address] UA RBC 3-5 Abnormal 0-2 [facility] Comment on above: Performed By: #### U AMIC, UA #### [address] [address] UA Squam Epithelial 25-50 Abnormal 0-20 [facility] Comment on above: Performed By: #### U AMIC, UA #### [address] [address] UA WBC LOADED Abnormal 0-5 [facility] Comment on above: Performed By: #### U AMIC, UA #### [address] [address] .Auto Diffon 01-09-2025 Basophil, Absolute 0.1 10 3/mcL Normal 0.0-0.3 [facility] Comment on above: Performed By: #### A DIFF, ANEU, CBC #### [facility] [address] [place] [address] Basophils/100 WBC (Bld) 0.7 % Normal 0.0-2.5 [facility] Comment on above: Performed By: #### A DIFF, ANEU, CBC #### [address] [address] Eosinophil, Absolute 0.4 10 3/mcL Normal 0.0-0.7 [facility] Comment on above: Performed By: #### A DIFF, ANEU, CBC #### [address] [address] Eosinophils/100 WBC (Bld) 3.3 % Normal 0.0-6.[address] [facility] Comment on above: Performed By: #### A DIFF, ANEU, CBC #### [address] [address] Lymphocyte, Absolute 2.4 10 3/mcL Normal 0.9-4.3 [facility] Comment on above: Performed By: #### A DIFF, ANEU, CBC #### [address] [address] Lymphocytes/100 WBC (Bld) 21.9 % Normal 20.0-40.[address] [facility] Comment on above: Performed By: #### A DIFF, ANEU, CBC #### [address] [address] Monocyte, Absolute 0.9 10 3/mcL Normal 0.1-1.4 [facility] Comment on above: Performed By: #### A DIFF, ANEU, CBC #### [address] [address] Monocytes/100 WBC (Bld) 8.4 % Normal 2.0-13.0 [facility] Comment on above: Performed By: #### A DIFF, ANEU, CBC #### [address] [address] Neutrophils/100 WBC (Bld) 65.7 % Normal 50.0-75.[address] [facility] Comment on above: Performed By: #### A DIFF, ANEU, CBC #### [address] [address] .GFRon 01-09-2025 Estimated Glomerular Filtration Rate 111 ml/min/1.73sqm Normal [facility] Comment on above: Result Comment: Stages of Chronic Kidney Disease (CKD) Stage Description eGFR(ml/min/1.73 sq.m.) CKD 1 Normal kidney function or >=90 normal kindney function with possible kidney damage (ex. Proteinuria) CKD 2 Kidney damage with mild loss 60-89 of kidney function CKD 3a Mild to moderate loss of kidney 45-59 function CKD 3b Moderate to severe loss of 30-44 of kindey function CKD 4 Severe loss of kidney function 15-29 CKD 5 Kidney failure <15 Note: (go live 2024) the eGFR calculation was updated to the 2020 CKD-EPI creatinine equation without a race factor to calculate the eGFR results. Performed By: #### A DIFF, ANEU, CBC #### [address] [address] .NEUABSon 01-09-2025 Neutrophil, Absolute 7.3 10 3/mcL Normal 2.3-8.1 [facility] Comment on above: Performed By: #### A DIFF, ANEU, CBC #### [address] [address] BMPon 01-09-2025 BUN/Creatinine Ratio 26.8 ratio High 10.0-22.0 [facility] Comment on above: Performed By: #### A DIFF, ANEU, CBC #### [address] [address] Calcium [Mass/Vol] 9.0 mg/dL Normal 8.7-10.4 [facility] Comment on above: Performed By: #### A DIFF, ANEU, CBC #### [address] [address] Chloride [Moles/Vol] 106 mmol/L Normal 98-110 [facility] Comment on above: Performed By: #### A DIFF, ANEU, CBC #### [address] [address] CO2 [Moles/Vol] 27 mmol/L Normal 22-[address] [facility] Comment on above: Performed By: #### A DIFF, ANEU, CBC #### [address] [address] Creatinine [Mass/Vol] 0.56 mg/dL Normal 0.50-1.20 [facility] Comment on above: Result Comment: Test ing performed on [employer] analyzer using enzymatic creatinine methodology. Performed By: #### A DIFF, ANEU, CBC #### [address] [address] Electrolyte Balance 8.0 mEq/L Normal 4.0-15.0 [facility] Comment on above: Performed By: #### A DIFF, ANEU, CBC #### [address] [address] Glucose [Mass/Vol] 98 mg/dL Normal 70-110 [facility] Comment on above: Performed By: #### A DIFF, ANEU, CBC #### [address] [address] Potassium [Moles/Vol] 3.9 mmol/L Normal 3.5-5.0 [facility] Comment on above: Performed By: #### A DIFF, ANEU, CBC #### [address] [address] Sodium [Moles/Vol] 141 mmol/L Normal 136-145 [facility] Comment on above: Performed By: #### A DIFF, ANEU, CBC #### [address] [address] Urea nitrogen [Mass/Vol] 15.0 mg/dL Normal 8.0-22.[address] [facility] Comment on above: Performed By: #### A DIFF, ANEU, CBC #### [address] [address] [facility] Erythrocyte distribution width (RBC) [Ratio] 17.6 % High 11.5-15.[address] [facility] Comment on above: Performed By: #### A DIFF, ANEU, CBC #### [address] [address] Hematocrit (Bld) [Volume fraction] 32.0 % Low 34.0-46.[address] [facility] Comment on above: Performed By: #### A DIFF, ANEU, CBC #### [address] [address] Hgb 10.6 G/dL Low 12.0-16.[address] [facility] Comment on above: Performed By: #### A DIFF, ANEU, CBC #### [place] [id number] MCH (RBC) [Entitic mass] 28.0 pg Normal 27.0-33.[address] [facility] Comment on above: Performed By: #### A DIFF, ANEU, CBC #### [place] [address] MCHC 33.0 G/dL Normal 32.0-36.[address] [facility] Comment on above: Performed By: #### A DIFF ANEU, CBC #### [place] [address] MCV (RBC) [Entitic vol] 84.8 fL Normal 80.0-99.0 [facility] Comment on above: Performed By: #### A DIFF ANEU, CBC #### [place] [address] Platelet 342 10 3/mcL Normal 150-[address] [facility] Comment on above: Performed By: #### A DIFF ANEU, CBC #### [place] [address] Platelet mean volume (Bld) [Entitic vol] 8.2 fL Normal 6.6-10.[address] [facility] Comment on above: Performed By: #### A DIFF ANEU, CBC #### [place] [address] RBC 3.78 10 6/mcL Low 4.10-5.[address] [facility] Comment on above: Performed By: #### A DIFF, ANEU, CBC #### [place] [address] WBC 11.2 10 3/mcL High 4.5-10.[address] [facility] Comment on above: Performed By: #### A DIFF ANEU, CBC #### [place] [address] LABORATORYOrdered By: Kaykay Pierson on 01-09-2025 Beta HCG ( test) Ql (U) Negative (01/09/25 8:10 AM) [facility] LABORATORYOrdered By: [employer] on 01-09-2025 Basophils (Bld) [#/Vol] 0.1 103/mcL Normal 0.0 - 0.3 10^3/mcL Workflow SS Basophils/100 WBC (Bld) 0.7 % Normal 0.0 - 2.5 % Workflow SS Calcium [Mass/Vol] 9.0 mg/dL Normal 8.7 - 10. 4 mg/dL ADM SS Chloride [Moles/Vol] 106 mmol/L Normal 98 - 11 0 mEq/L ADM SS CO2 [Moles/Vol] 27 mmol/L Normal 22 - 32 mEq/L ADM SS Creatinine [Mass/Vol] 0.56 mg/dL Normal 0.50 - 1.20 mg/dL ADM SS Comment on above: Interpretive Data: T esting performed on [employer] analyzer using enzymatic creatinine methodology. Electrolyte Balance 8.0 mEq/L Normal 4.0 - 15 .0 mEq/L ADM SS Eosinophils (Bld) [#/Vol] 0.4 103/mcL Normal 0.0 - 0.7 10^3/mcL Workflow SS Eosinophils/100 WBC (Bld) 3.3 % Normal 0.0 - 6.0 % Workflow SS Erythrocyte distribution width (RBC) [Ratio] 17.6 % High 11.5 - 15.5 % Workflow SS Estimated Glomerular Filtration Rate 111 ml/min/1.73sqm Invalid Interpretation Code Chemistry S Comment on above: Interpretive Data: Stages of Chronic Kidney Disease (CKD) Stage Description eGFR(ml/min/1.73 sq.m.) CKD 1 Normal kidney function or >=90 normal kindney function with possible kidney damage (ex. Proteinuria) CKD 2 Kidney damage with mild loss 60-89 of kidney function CKD 3a Mild to moderate loss of kidney 45-59 function CKD 3b Moderate to severe loss of 30-44 of kindey function CKD 4 Severe loss of kidney function 15-29 CKD 5 Kidney failure <15 Note: (go live 2024) the eGFR calculation was updated to the 2020 CKD-EPI creatinine equation without a race factor to calculate the eGFR results. Glucose [Mass/Vol] 98 mg/dL Normal 70 - 110 mg/dL ADM SS Hematocrit (Bld) [Volume fraction] 32.0 % Low 34.0 - 46.0 % Workflow SS Hemoglobin (Bld) [Mass/Vol] 10.6 G/dL Low 12.0 - 16.0 G/dL AH Workflow SS Lymphocytes (Bld) [#/Vol] 2.4 103/mcL Normal 0.9 - 4.3 10^3/mcL AH Workflow SS Lymphocytes/100 WBC (Bld) 21.9 % Normal 20.0 - 40.0 % AH Workflow SS MCH (RBC) [Entitic mass] 28.0 pg Normal 27.0 - 33.0 pg AH Workflow SS MCHC 33.0 G/dL Normal 32.0 - 36.0 G/dL AH Workflow SS MCV (RBC) [Entitic vol] 84.8 fL Normal 80.0 - 99.0 fL AH Workflow SS Monocytes (Bld) [#/Vol] 0.9 103/mcL Normal 0.1 - 1.4 10^3/mcL AH Workflow SS Monocytes/100 WBC (Bld) 8.4 % Normal 2.0 - 13.0 % AH Workflow SS Neutrophils (Bld) [#/Vol] 7.3 103/mcL Normal 2.3 - 8.1 10^3/mcL AH Workflow SS Neutrophils/100 WBC (Bld) 65.7 % Normal 50.0 - 75.0 % AH Workflow SS Platelet mean volume (Bld) [Entitic vol] 8.2 fL Normal 6.6 - 10.5 fL AH Workflow SS Platelets (Bld) [#/Vol] 342 103/mcL Normal 150 - 450 10^3/mcL AH Workflow SS Potassium [Moles/Vol] 3.9 mmol/L Normal 3.5 - 5.0 mEq/L ADM SS RBC (Bld) [#/Vol] 3.78 106/mcL Low 4.10 - 5.3 0 10^6/mcL AH Workflow SS Sodium [Moles/Vol] 141 mmol/L Normal 136 - 145 mEq/L ADM SS Urea nitrogen [Mass/Vol] 15.0 mg/dL Normal 8.0 - 22.0 mg/dL ADM SS Urea nitrogen/Creatinine [Mass ratio] 26.8 ratio High 10.0 - 22.0 ratio AH ADM SS WBC (Bld) [#/Vol] 11.2 103/mcL High 4.5 - 10.8 10^3/mcL AH Workflow SS .Auto Diffon 01-08-2025 Basophil, Absolute 0.1 10 3/mcL Normal 0.0-0.3 [facility] Comment on above: Performed By: #### C BC, ANEU, BMP, ADIFF, GFR #### [address] [address] Basophils/100 WBC (Bld) 0.7 % Normal 0.0-2.5 [facility] Comment on above: Performed By: #### C BC, ANEU, BMP, ADIFF, GFR #### [address] [address] Eosinophil, Absolute 0.3 10 3/mcL Normal 0.0-0.7 [facility] MA[facility] Comment on above: Performed By: #### C BC, ANEU, BMP, ADIFF, GFR #### [address] [address] Eosinophils/100 WBC (Bld) 2.7 % Normal 0.0-6.[address] [facility] Comment on above: Performed By: #### C BC, ANEU, BMP, ADIFF, GFR #### [address] [address] Lymphocyte, Absolute 1.9 10 3/mcL Normal 0.9-4.3 [facility] MA[facility] Comment on above: Performed By: #### C BC, ANEU, BMP, ADIFF, GFR #### [address] [address] Lymphocytes/100 WBC (Bld) 18.5 % Low 20.0-40.[address] [facility] Comment on above: Performed By: #### C BC, ANEU, BMP, ADIFF, GFR #### [address] [address] Monocyte, Absolute 0.8 10 3/mcL Normal 0.1-1.4 [facility] Comment on above: Performed By: #### C BC, ANEU, BMP, ADIFF, GFR #### [address] [address] Monocytes/100 WBC (Bld) 7.6 % Normal 2.0-13.0 [facility] Comment on above: Performed By: #### C BC, ANEU, BMP, ADIFF, GFR #### [address] [address] Neutrophils/100 WBC (Bld) 70.5 % Normal 50.0-75.[address] [facility] Comment on above: Performed By: #### C BC, ANEU, BMP, ADIFF, GFR #### [address] [address] .GFRon 01-08-2025 Estimated Glomerular Filtration Rate 112 ml/min/1.73sqm Normal [facility] Comment on above: Result Comment: Stages of Chronic Kidney Disease (CKD) Stage Description eGFR(ml/min/1.73 sq.m.) CKD 1 Normal kidney function or >=90 normal kindney function with possible kidney damage (ex. Proteinuria) CKD 2 Kidney damage with mild loss 60-89 of kidney function CKD 3a Mild to moderate loss of kidney 45-59 function CKD 3b Moderate to severe loss of 30-44 of kindey function CKD 4 Severe loss of kidney function 15-29 CKD 5 Kidney failure <15 Note: (go live 2024) the eGFR calculation was updated to the 2020 CKD-EPI creatinine equation without a race factor to calculate the eGFR results. Performed By: #### A DIFF, ANEU, CBC #### [address] [address] .NEUABSon 01-08-2025 Neutrophil, Absolute 7.3 10 3/mcL Normal 2.3-8.1 [facility] MAIN Comment on above: Performed By: #### C BC, ANEU, BMP, ADIFF, GFR #### [address] [address] BMPon 01-08-2025 BUN/Creatinine Ratio 27.8 ratio High 10.0-22.0 [facility] MAIN Comment on above: Performed By: #### A DIFF, ANEU, CBC #### [address] [address] Calcium [Mass/Vol] 9.1 mg/dL Normal 8.7-10.4 [facility] MAIN Comment on above: Performed By: #### A DIFF, ANEU, CBC #### [address] [address] Chloride [Moles/Vol] 105 mmol/L Normal 98-110 [facility] MA[facility] Comment on above: Performed By: #### A DIFF, ANEU, CBC #### [address] [address] CO2 [Moles/Vol] 29 mmol/L Normal 22-[address] [facility] MAIN Comment on above: Performed By: #### A DIFF, ANEU, CBC #### [address] [address] Creatinine [Mass/Vol] 0.54 mg/dL Normal 0.50-1.20 [facility] MAIN Comment on above: Result Comment: Test ing performed on [employer] analyzer using enzymatic creatinine methodology. Performed By: #### A DIFF, ANEU, CBC #### [address] [address] Electrolyte Balance 6.0 mEq/L Normal 4.0-15.0 [facility] MAIN Comment on above: Performed By: #### A DIFF, ANEU, CBC #### [address] [address] Glucose [Mass/Vol] 123 mg/dL High 70-110 [facility] MA[facility] Comment on above: Performed By: #### A DIFF, ANEU, CBC #### [address] [address] Potassium [Moles/Vol] 3.8 mmol/L Normal 3.5-5.0 [facility] Comment on above: Performed By: #### A DIFF, ANEU, CBC #### [address] [address] Sodium [Moles/Vol] 140 mmol/L Normal 136-145 [facility] MA[facility] Comment on above: Performed By: #### A DIFF, ANEU, CBC #### [address] [address] Urea nitrogen [Mass/Vol] 15.0 mg/dL Normal 8.0-22.[address] [facility] Comment on above: Performed By: #### A DIFF, ANEU, CBC #### [address] [address] CBCon 01-08-2025 Erythrocyte distribution width (RBC) [Ratio] 18.1 % High 11.5-15.[address] [facility] Comment on above: Performed By: #### C BC, ANEU, BMP, ADIFF, GFR #### [place] [address] Hematocrit (Bld) [Volume fraction] 32.5 % Low 34.0-46.[address] [facility] Comment on above: Performed By: #### C BC, ANEU, BMP, ADIFF, GFR #### [place] [address] Hgb 10.5 G/dL Low 12.0-16.[address] [facility] Comment on above: Performed By: #### C BC, ANEU, BMP, ADIFF, GFR #### [place] [address] MCH (RBC) [Entitic mass] 27.9 pg Normal 27.0-33.[address] [facility] Comment on above: Performed By: #### C BC, ANEU, BMP, ADIFF, GFR #### [place] [address] MCHC 32.4 G/dL Normal 32.0-36.[address] [facility] Comment on above: Performed By: #### C BC, ANEU, BMP, ADIFF, GFR #### [place] [address] MCV (RBC) [Entitic vol] 86.3 fL Normal 80.0-99.0 [facility] Comment on above: Performed By: #### C BC, ANEU, BMP, ADIFF, GFR #### [place] [address] Platelet 320 10 3/mcL Normal 150-[address] [facility] Comment on above: Performed By: #### C BC, ANEU, BMP, ADIFF, GFR #### [place] [address] Platelet mean volume (Bld) [Entitic vol] 8.2 fL Normal 6.6-10.[address] [facility] MA[facility] Comment on above: Performed By: #### C BC, ANEU, BMP, ADIFF, GFR #### [place] [address] RBC 3.76 10 6/mcL Low 4.10-5.[address] [facility] MA[facility] Comment on above: Performed By: #### C BC, ANEU, BMP, ADIFF, GFR #### [facility] [address] [place] [address] WBC 10.3 10 3/mcL Normal 4.5-10.[address] [facility] MA[facility] Comment on above: Performed By: #### C BC, ANEU, BMP, ADIFF, GFR #### [place] [id number] [place] [address] LABORATORYOrdered By: SYSTEM SYSTEM on 01-08-2025 Basophils (Bld) [#/Vol] 0.1 103/mcL Normal 0.0 - 0.3 10^3/mcL Workflow SS Basophils/100 WBC (Bld) 0.7 % Normal 0.0 - 2.5 % AH Workflow SS Calcium [Mass/Vol] 9.1 mg/dL Normal 8.7 - 10. 4 mg/dL ADM SS Chloride [Moles/Vol] 105 mmol/L Normal 98 - 11 0 mEq/L ADM SS CO2 [Moles/Vol] 29 mmol/L Normal 22 - 32 mEq/L ADM SS Creatinine [Mass/Vol] 0.54 mg/dL Normal 0.50 - 1.20 mg/dL ADM SS Comment on above: Interpretive Data: T esting performed on [employer] analyzer using enzymatic creatinine methodology. Electrolyte Balance 6.0 mEq/L Normal 4.0 - 15 .0 mEq/L ADM SS Eosinophils (Bld) [#/Vol] 0.3 103/mcL Normal 0.0 - 0.7 10^3/mcL Workflow SS Eosinophils/100 WBC (Bld) 2.7 % Normal 0.0 - 6.0 % Workflow SS Erythrocyte distribution width (RBC) [Ratio] 18.1 % High 11.5 - 15.5 % AH Workflow SS Estimated Glomerular Filtration Rate 112 ml/min/1.73sqm Invalid Interpretation Code Chemistry S Comment on above: Interpretive Data: Stages of Chronic Kidney Disease (CKD) Stage Description eGFR(ml/min/1.73 sq.m.) CKD 1 Normal kidney function or >=90 normal kindney function with possible kidney damage (ex. Proteinuria) CKD 2 Kidney damage with mild loss 60-89 of kidney function CKD 3a Mild to moderate loss of kidney 45-59 function CKD 3b Moderate to severe loss of 30-44 of kindey function CKD 4 Severe loss of kidney function 15-29 CKD 5 Kidney failure <15 Note: (go live 2024) the eGFR calculation was updated to the 2020 CKD-EPI creatinine equation without a race factor to calculate the eGFR results. Glucose [Mass/Vol] 123 mg/dL High 70 - 110 mg/dL AH ADM SS Hematocrit (Bld) [Volume fraction] 32.5 % Low 34.0 - 46.0 % AH Workflow SS Hemoglobin (Bld) [Mass/Vol] 10.5 G/dL Low 12.0 - 16.0 G/dL AH Workflow SS Lymphocytes (Bld) [#/Vol] 1.9 103/mcL Normal 0.9 - 4.3 10^3/mcL AH Workflow SS Lymphocytes/100 WBC (Bld) 18.5 % Low 20.0 - 40.0 % AH Workflow SS MCH (RBC) [Entitic mass] 27.9 pg Normal 27.0 - 33.0 pg AH Workflow SS MCHC 32.4 G/dL Normal 32.0 - 36.0 G/dL AH Workflow SS MCV (RBC) [Entitic vol] 86.3 fL Normal 80.0 - 99.0 fL AH Workflow SS Monocytes (Bld) [#/Vol] 0.8 103/mcL Normal 0.1 - 1.4 10^3/mcL AH Workflow SS Monocytes/100 WBC (Bld) 7.6 % Normal 2.0 - 13.0 % AH Workflow SS Neutrophils (Bld) [#/Vol] 7.3 103/mcL Normal 2.3 - 8.1 10^3/mcL AH Workflow SS Neutrophils/100 WBC (Bld) 70.5 % Normal 50.0 - 75.0 % AH Workflow SS Platelet mean volume (Bld) [Entitic vol] 8.2 fL Normal 6.6 - 10.5 fL AH Workflow SS Platelets (Bld) [#/Vol] 320 103/mcL Normal 150 - 450 10^3/mcL AH Workflow SS Potassium [Moles/Vol] 3.8 mmol/L Normal 3.5 - 5.0 mEq/L AH ADM SS RBC (Bld) [#/Vol] 3.76 106/mcL Low 4.10 - 5.3 0 10^6/mcL Workflow SS Sodium [Moles/Vol] 140 mmol/L Normal 136 - 145 mEq/L ADM SS Urea nitrogen [Mass/Vol] 15.0 mg/dL Normal 8.0 - 22.0 mg/dL ADM SS Urea nitrogen/Creatinine [Mass ratio] 27.8 ratio High 10.0 - 22.0 ratio AH ADM SS WBC (Bld) [#/Vol] 10.3 103/mcL Normal 4.5 - 10.8 10^3/mcL Workflow SS .Auto Diffon 01-07-2025 Basophil, Absolute 0.1 10 3/mcL Normal 0.0-0.3 [facility] MAIN Comment on above: Performed By: #### A DIFF, ANEU, CBC #### [address] [address] Basophils/100 WBC (Bld) 0.7 % Normal 0.0-2.5 [facility] Comment on above: Performed By: #### A DIFF, ANEU, CBC #### [address] [address] Eosinophil, Absolute 0.3 10 3/mcL Normal 0.0-0.7 [facility] MAIN Comment on above: Performed By: #### A DIFF, ANEU, CBC #### [address] [address] Eosinophils/100 WBC (Bld) 3.0 % Normal 0.0-6.[address] [facility] Comment on above: Performed By: #### A DIFF, ANEU, CBC #### [address] [address] Lymphocyte, Absolute 2.6 10 3/mcL Normal 0.9-4.3 [facility] Comment on above: Performed By: #### A DIFF, ANEU, CBC #### [address] [address] Lymphocytes/100 WBC (Bld) 23.4 % Normal 20.0-40.[address] [facility] Comment on above: Performed By: #### A DIFF, ANEU, CBC #### [address] [address] Monocyte, Absolute 0.9 10 3/mcL Normal 0.1-1.4 [facility] MA[facility] Comment on above: Performed By: #### A DIFF, ANEU, CBC #### [address] [address] Monocytes/100 WBC (Bld) 7.9 % Normal 2.0-13.0 [facility] Comment on above: Performed By: #### A DIFF, ANEU, CBC #### [address] [address] Neutrophils/100 WBC (Bld) 65.0 % Normal 50.0-75.[address] [facility] Comment on above: Performed By: #### A DIFF, ANEU, CBC #### [address] [address] .NEUABSon 01-07-2025 Neutrophil, Absolute 7.2 10 3/mcL Normal 2.3-8.1 [facility] MAIN Comment on above: Performed By: #### A DIFF, ANEU, CBC #### [place] [address] CBCon 01-07-2025 Erythrocyte distribution width (RBC) [Ratio] 17.6 % High 11.5-15.[address] [facility] MAIN Comment on above: Performed By: #### A DIFF, ANEU, CBC #### [place] [address] Hematocrit (Bld) [Volume fraction] 30.6 % Low 34.0-46.[address] [facility] Comment on above: Performed By: #### A DIFF, ANEU, CBC #### [place] [address] Hgb 9.8 G/dL Low 12.0-16.[address] [facility] Comment on above: Performed By: #### A DIFF, ANEU, CBC #### [place] [address] MCH (RBC) [Entitic mass] 27.7 pg Normal 27.0-33.[address] [facility] Comment on above: Performed By: #### A DIFF, ANEU, CBC #### [place] [address] MCHC 32.1 G/dL Normal 32.0-36.[address] [facility] Comment on above: Performed By: #### A DIFF, ANEU, CBC #### [address] [address] MCV (RBC) [Entitic vol] 86.3 fL Normal 80.0-99.0 [facility] Comment on above: Performed By: #### A DIFF, ANEU, CBC #### [place] [id number] Platelet 320 10 3/mcL Normal 150-[address] [facility] MA[facility] Comment on above: Performed By: #### A DIFF, ANEU, CBC #### [place] [address] Platelet mean volume (Bld) [Entitic vol] 8.5 fL Normal 6.6-10.[address] [facility] MA[facility] Comment on above: Performed By: #### A DIFF, ANEU, CBC #### [place] [address] RBC 3.54 10 6/mcL Low 4.10-5.[address] [facility] Comment on above: Performed By: #### A DIFF, ANEU, CBC #### [place] [address] WBC 11.1 10 3/mcL High 4.5-10.[address] [facility] Comment on above: Performed By: #### A DIFF, ANEU, CBC #### [place] [address] LABORATORYOrdered By: SYSTEM SYSTEM on 01-07-2025 Basophils (Bld) [#/Vol] 0.1 103/mcL Normal 0.0 - 0.3 10^3/mcL AH Workflow SS Basophils/100 WBC (Bld) 0.7 % Normal 0.0 - 2.5 % AH Workflow SS Eosinophils (Bld) [#/Vol] 0.3 103/mcL Normal 0.0 - 0.7 10^3/mcL AH Workflow SS Eosinophils/100 WBC (Bld) 3.0 % Normal 0.0 - 6.0 % AH Workflow SS Erythrocyte distribution width (RBC) [Ratio] 17.6 % High 11.5 - 15.5 % AH Workflow SS Hematocrit (Bld) [Volume fraction] 30.6 % Low 34.0 - 46.0 % AH Workflow SS Hemoglobin (Bld) [Mass/Vol] 9.8 G/dL Low 12.0 - 16.0 G/dL AH Workflow SS Lymphocytes (Bld) [#/Vol] 2.6 103/mcL Normal 0.9 - 4.3 10^3/mcL AH Workflow SS Lymphocytes/100 WBC (Bld) 23.4 % Normal 20.0 - 40.0 % AH Workflow SS MCH (RBC) [Entitic mass] 27.7 pg Normal 27.0 - 33.0 pg AH Workflow SS MCHC 32.1 G/dL Normal 32.0 - 36.0 G/dL AH Workflow SS MCV (RBC) [Entitic vol] 86.3 fL Normal 80.0 - 99.0 fL AH Workflow SS Monocytes (Bld) [#/Vol] 0.9 103/mcL Normal 0.1 - 1.4 10^3/mcL AH Workflow SS Monocytes/100 WBC (Bld) 7.9 % Normal 2.0 - 13.0 % AH Workflow SS Neutrophils (Bld) [#/Vol] 7.2 103/mcL Normal 2.3 - 8.1 10^3/mcL AH Workflow SS Neutrophils/100 WBC (Bld) 65.0 % Normal 50.0 - 75.0 % AH Workflow SS Platelet mean volume (Bld) [Entitic vol] 8.5 fL Normal 6.6 - 10.5 fL AH Workflow SS Platelets (Bld) [#/Vol] 320 103/mcL Normal 150 - 450 10^3/mcL AH Workflow SS RBC (Bld) [#/Vol] 3.54 106/mcL Low 4.10 - 5.3 0 10^6/mcL Workflow SS WBC (Bld) [#/Vol] 11.1 103/mcL High 4.5 - 10.8 10^3/mcL AH Workflow SS .Auto Diffon 01-06-2025 Basophil, Absolute 0.1 10 3/mcL Normal 0.0-0.3 [facility] Comment on above: Performed By: #### C BC, ANEU, BMP, ADIFF, GFR #### [facility] [address] [place] [address] Basophils/100 WBC (Bld) 0.9 % Normal 0.0-2.5 [facility] Comment on above: Performed By: #### C BC, ANEU, BMP, ADIFF, GFR #### [address] [address] Eosinophil, Absolute 0.3 10 3/mcL Normal 0.0-0.7 [facility] MAIN Comment on above: Performed By: #### C BC, ANEU, BMP, ADIFF, GFR #### [address] [address] Eosinophils/100 WBC (Bld) 2.8 % Normal 0.0-6.[address] [facility] Comment on above: Performed By: #### C BC, ANEU, BMP, ADIFF, GFR #### [address] [address] Lymphocyte, Absolute 2.5 10 3/mcL Normal 0.9-4.3 [facility] MA[facility] Comment on above: Performed By: #### C BC, ANEU, BMP, ADIFF, GFR #### [address] [address] Lymphocytes/100 WBC (Bld) 21.2 % Normal 20.0-40.[address] [facility] Comment on above: Performed By: #### C BC, ANEU, BMP, ADIFF, GFR #### [address] [address] Monocyte, Absolute 1.0 10 3/mcL Normal 0.1-1.4 [facility] Comment on above: Performed By: #### C BC, ANEU, BMP, ADIFF, GFR #### [address] [address] Monocytes/100 WBC (Bld) 8.3 % Normal 2.0-13.0 [facility] Comment on above: Performed By: #### C BC, ANEU, BMP, ADIFF, GFR #### [address] [address] Neutrophils/100 WBC (Bld) 66.8 % Normal 50.0-75.[address] [facility] Comment on above: Performed By: #### C BC, ANEU, BMP, ADIFF, GFR #### [address] [address] .GFRon 01-06-2025 Estimated Glomerular Filtration Rate 104 ml/min/1.73sqm Normal [facility] Comment on above: Result Comment: Stages of Chronic Kidney Disease (CKD) Stage Description eGFR(ml/min/1.73 sq.m.) CKD 1 Normal kidney function or >=90 normal kindney function with possible kidney damage (ex. Proteinuria) CKD 2 Kidney damage with mild loss 60-89 of kidney function CKD 3a Mild to moderate loss of kidney 45-59 function CKD 3b Moderate to severe loss of 30-44 of kindey function CKD 4 Severe loss of kidney function 15-29 CKD 5 Kidney failure <15 Note: (go live 2024) the eGFR calculation was updated to the 2020 CKD-EPI creatinine equation without a race factor to calculate the eGFR results. Performed By: #### C BC, ANEU, BMP, ADIFF, GFR #### [address] [address] .NEUABSon 01-06-2025 Neutrophil, Absolute 7.8 10 3/mcL Normal 2.3-8.1 [facility] MAIN Comment on above: Performed By: #### C BC, ANEU, BMP, ADIFF, GFR #### [address] [address] [facility] 01-06-2025 BUN/Creatinine Ratio 18.3 ratio Normal 10.0-22.0 [facility] Comment on above: Performed By: #### C BC, ANEU, BMP, ADIFF, GFR #### [address] [address] Calcium [Mass/Vol] 9.3 mg/dL Normal 8.7-10.4 [facility] Comment on above: Performed By: #### C BC, ANEU, BMP, ADIFF, GFR #### [address] [address] Chloride [Moles/Vol] 105 mmol/L Normal 98-110 [facility] Comment on above: Performed By: #### C BC, ANEU, BMP, ADIFF, GFR #### [address] [address] CO2 [Moles/Vol] 32 mmol/L Normal 22-[address] [facility] Comment on above: Performed By: #### C BC, ANEU, BMP, ADIFF, GFR #### [address] [address] Creatinine [Mass/Vol] 0.71 mg/dL Normal 0.50-1.20 [facility] Comment on above: Result Comment: Test ing performed on [employer] analyzer using enzymatic creatinine methodology. Performed By: #### C BC, ANEU, BMP, ADIFF, GFR #### [address] [address] Electrolyte Balance 4.0 mEq/L Normal 4.0-15.0 [facility] Comment on above: Performed By: #### C BC, ANEU, BMP, ADIFF, GFR #### [address] [address] Glucose [Mass/Vol] 104 mg/dL Normal 70-110 [facility] Comment on above: Performed By: #### C BC, ANEU, BMP, ADIFF, GFR #### [place] [id number] Potassium [Moles/Vol] 4.3 mmol/L Normal 3.5-5.0 [facility] Comment on above: Performed By: #### C BC, ANEU, BMP, ADIFF, GFR #### [place] [id number] Sodium [Moles/Vol] 141 mmol/L Normal 136-145 [facility] Comment on above: Performed By: #### C BC, ANEU, BMP, ADIFF, GFR #### [address] [address] Urea nitrogen [Mass/Vol] 13.0 mg/dL Normal 8.0-22.[address] [facility] Comment on above: Performed By: #### C BC, ANEU, BMP, ADIFF, GFR #### [address] [address] CBCon 01-06-2025 Erythrocyte distribution width (RBC) [Ratio] 18.2 % High 11.5-15.[address] [facility] Comment on above: Performed By: #### C BC, ANEU, BMP, ADIFF, GFR #### [place] [address] Hematocrit (Bld) [Volume fraction] 30.2 % Low 34.0-46.[address] [facility] Comment on above: Performed By: #### C BC, ANEU, BMP, ADIFF, GFR #### [place] [address] Hgb 9.8 G/dL Low 12.0-16.[address] [facility] Comment on above: Performed By: #### C BC, ANEU, BMP, ADIFF, GFR #### [place] [address] MCH (RBC) [Entitic mass] 28.1 pg Normal 27.0-33.[address] [facility] Comment on above: Performed By: #### C BC, ANEU, BMP, ADIFF, GFR #### [place] [address] MCHC 32.3 G/dL Normal 32.0-36.[address] [facility] Comment on above: Performed By: #### C BC, ANEU, BMP, ADIFF, GFR #### [place] [address] MCV (RBC) [Entitic vol] 86.9 fL Normal 80.0-99.0 [facility] Comment on above: Performed By: #### C BC, ANEU, BMP, ADIFF, GFR #### [place] [address] Platelet 294 10 3/mcL Normal 150-[address] [facility] Comment on above: Performed By: #### C BC, ANEU, BMP, ADIFF, GFR #### [place] [address] Platelet mean volume (Bld) [Entitic vol] 8.3 fL Normal 6.6-10.[address] [facility] Comment on above: Performed By: #### C BC, ANEU, BMP, ADIFF, GFR #### [place] [address] RBC 3.48 10 6/mcL Low 4.10-5.[address] [facility] Comment on above: Performed By: #### C BC, ANEU, BMP, ADIFF, GFR #### [facility] [address] [place] [address] WBC 11.7 10 3/mcL High 4.5-10.[address] [facility] Comment on above: Performed By: #### C BC, ANEU, BMP, ADIFF, GFR #### [facility] [address] [place] [id number] LABORATORYOrdered By: SYSTEM SYSTEM on 01-06-2025 Calcium [Mass/Vol] 9.3 mg/dL Normal 8.7 - 10. 4 mg/dL ADM SS Chloride [Moles/Vol] 105 mmol/L Normal 98 - 11 0 mEq/L ADM SS CO2 [Moles/Vol] 32 mmol/L Normal 22 - 32 mEq/L AH ADM SS Creatinine [Mass/Vol] 0.71 mg/dL Normal 0.50 - 1.20 mg/dL AH ADM SS Comment on above: Interpretive Data: T esting performed on [employer] analyzer using enzymatic creatinine methodology. Electrolyte Balance 4.0 mEq/L Normal 4.0 - 15 .0 mEq/L AH ADM SS Estimated Glomerular Filtration Rate 104 ml/min/1.73sqm Invalid Interpretation Code Chemistry S Comment on above: Interpretive Data: Stages of Chronic Kidney Disease (CKD) Stage Description eGFR(ml/min/1.73 sq.m.) CKD 1 Normal kidney function or >=90 normal kindney function with possible kidney damage (ex. Proteinuria) CKD 2 Kidney damage with mild loss 60-89 of kidney function CKD 3a Mild to moderate loss of kidney 45-59 function CKD 3b Moderate to severe loss of 30-44 of kindey function CKD 4 Severe loss of kidney function 15-29 CKD 5 Kidney failure <15 Note: (go live 2024) the eGFR calculation was updated to the 2020 CKD-EPI creatinine equation without a race factor to calculate the eGFR results. Glucose [Mass/Vol] 104 mg/dL Normal 70 - 110 mg/dL AH ADM SS Potassium [Moles/Vol] 4.3 mmol/L Normal 3.5 - 5.0 mEq/L AH ADM SS Sodium [Moles/Vol] 141 mmol/L Normal 136 - 145 mEq/L AH ADM SS Urea nitrogen [Mass/Vol] 13.0 mg/dL Normal 8.0 - 22.0 mg/dL ADM SS Urea nitrogen/Creatinine [Mass ratio] 18.3 ratio Normal 10.0 - 22.0 ratio AH ADM SS .Auto Diffon 01-04-2025 Basophil, Absolute 0.1 10 3/mcL Normal 0.0-0.3 [facility] Comment on above: Performed By: #### A DIFF, ANEU, CBC #### [address] [address] Basophils/100 WBC (Bld) 1.0 % Normal 0.0-2.5 [facility] Comment on above: Performed By: #### A DIFF, ANEU, CBC #### [address] [address] Eosinophil, Absolute 0.4 10 3/mcL Normal 0.0-0.7 [facility] Comment on above: Performed By: #### A DIFF, ANEU, CBC #### [address] [address] Eosinophils/100 WBC (Bld) 3.4 % Normal 0.0-6.[address] [facility] Comment on above: Performed By: #### A DIFF, ANEU, CBC #### [address] [address] Lymphocyte, Absolute 3.0 10 3/mcL Normal 0.9-4.3 [facility] Comment on above: Performed By: #### A DIFF, ANEU, CBC #### [address] [address] Lymphocytes/100 WBC (Bld) 26.6 % Normal 20.0-40.[address] [facility] Comment on above: Performed By: #### A DIFF, ANEU, CBC #### [address] [address] Monocyte, Absolute 0.7 10 3/mcL Normal 0.1-1.4 [facility]IN Comment on above: Performed By: #### A DIFF, ANEU, CBC #### [address] [address] Monocytes/100 WBC (Bld) 6.5 % Normal 2.0-13.0 [facility] Comment on above: Performed By: #### A DIFF ANEU, CBC #### [address] [address] Neutrophils/100 WBC (Bld) 62.5 % Normal 50.0-75.[address] [facility] Comment on above: Performed By: #### A DIFF ANEU, CBC #### [address] [address] .GFRon 01-04-2025 Estimated Glomerular Filtration Rate 110 ml/min/1.73sqm Normal [facility] Comment on above: Result Comment: Stages of Chronic Kidney Disease (CKD) Stage Description eGFR(ml/min/1.73 sq.m.) CKD 1 Normal kidney function or >=90 normal kindney function with possible kidney damage (ex. Proteinuria) CKD 2 Kidney damage with mild loss 60-89 of kidney function CKD 3a Mild to moderate loss of kidney 45-59 function CKD 3b Moderate to severe loss of 30-44 of kindey function CKD 4 Severe loss of kidney function 15-29 CKD 5 Kidney failure <15 Note: (go live 2024) the eGFR calculation was updated to the 2020 CKD-EPI creatinine equation without a race factor to calculate the eGFR results. Performed By: #### A DIFF ANEU, CBC #### [address] [address] .NEUABSon 01-04-2025 Neutrophil, Absolute 7.0 10 3/mcL Normal 2.3-8.1 [facility] MAIN Comment on above: Performed By: #### A DIFF ANEU, CBC #### [address] [address] BMPon 01-04-2025 BUN/Creatinine Ratio 24.1 ratio High 10.0-22.0 [facility] Comment on above: Performed By: #### A DIFF ANEU, CBC #### [address] [address] Calcium [Mass/Vol] 8.7 mg/dL Normal 8.7-10.4 [facility]IN Comment on above: Performed By: #### A DIFF, ANEU, CBC #### [address] [address] Chloride [Moles/Vol] 106 mmol/L Normal 98-110 [facility] Comment on above: Performed By: #### A DIFF, ANEU, CBC #### [address] [address] CO2 [Moles/Vol] 29 mmol/L Normal 22-[address] [facility] Comment on above: Performed By: #### A DIFF, ANEU, CBC #### [address] [address] Creatinine [Mass/Vol] 0.58 mg/dL Normal 0.50-1.20 [facility]IN Comment on above: Result Comment: Test ing performed on [employer] analyzer using enzymatic creatinine methodology. Performed By: #### A DIFF ANEU, CBC #### [address] [address] Electrolyte Balance 5.0 mEq/L Normal 4.0-15.0 [facility] MAIN Comment on above: Performed By: #### A DIFF, ANEU, CBC #### [address] [address] Glucose [Mass/Vol] 99 mg/dL Normal 70-110 [facility] Comment on above: Performed By: #### A DIFF, ANEU, CBC #### [address] [address] Potassium [Moles/Vol] 4.0 mmol/L Normal 3.5-5.0 [facility] Comment on above: Performed By: #### A DIFF, ANEU, CBC #### [address] [address] Sodium [Moles/Vol] 140 mmol/L Normal 136-145 [facility] Comment on above: Performed By: #### A DIFF, ANEU, CBC #### [address] [address] Urea nitrogen [Mass/Vol] 14.0 mg/dL Normal 8.0-22.[address] [facility] Comment on above: Performed By: #### A DIFF, ANEU, CBC #### [address] [address] CBCon 01-04-2025 Erythrocyte distribution width (RBC) [Ratio] 17.0 % High 11.5-15.[address] [facility] Comment on above: Performed By: #### A DIFF, ANEU, CBC #### [place] [address] Hematocrit (Bld) [Volume fraction] 29.4 % Low 34.0-46.[address] [facility] Comment on above: Performed By: #### A DIFF, ANEU, CBC #### [place] [address] Hgb 9.3 G/dL Low 12.0-16.[address] [facility] Comment on above: Performed By: #### A DIFF, ANEU, CBC #### [place] [address] MCH (RBC) [Entitic mass] 27.6 pg Normal 27.0-33.[address] [facility] Comment on above: Performed By: #### A DIFF, ANEU, CBC #### [place] [address] MCHC 31.8 G/dL Low 32.0-36.[address] [facility] Comment on above: Performed By: #### A DIFF, ANEU, CBC #### [place] [address] MCV (RBC) [Entitic vol] 86.8 fL Normal 80.0-99.0 [facility] Comment on above: Performed By: #### A DIFF, ANEU, CBC #### [place] [address] Platelet 264 10 3/mcL Normal 150-[address] [facility] Comment on above: Performed By: #### A DIFF, ANEU, CBC #### [place] [address] Platelet mean volume (Bld) [Entitic vol] 8.3 fL Normal 6.6-10.[address] [facility] Comment on above: Performed By: #### A DIFF, ANEU, CBC #### [place] [address] RBC 3.39 10 6/mcL Low 4.10-5.[address] [facility] Comment on above: Performed By: #### A DIFF, ANEU, CBC #### [address] [address] WBC 11.3 10 3/mcL High 4.5-10.[address] [facility] Comment on above: Performed By: #### A DIFF, ANEU, CBC #### [address] [address] .Auto Diffon 01-03-2025 Basophil, Absolute 0.1 10 3/mcL Normal 0.0-0.3 [facility] Comment on above: Performed By: #### A DIFF, ANEU, CBC #### [address] [address] Basophils/100 WBC (Bld) 0.8 % Normal 0.0-2.5 [facility] Comment on above: Performed By: #### A DIFF, ANEU, CBC #### [address] [address] Eosinophil, Absolute 0.5 10 3/mcL Normal 0.0-0.7 [facility] Comment on above: Performed By: #### A DIFF, ANEU, CBC #### [address] [address] Eosinophils/100 WBC (Bld) 3.4 % Normal 0.0-6.[address] [facility] Comment on above: Performed By: #### A DIFF, ANEU, CBC #### [address] [address] Lymphocyte, Absolute 3.6 10 3/mcL Normal 0.9-4.3 [facility] Comment on above: Performed By: #### A DIFF, ANEU, CBC #### [address] [address] Lymphocytes/100 WBC (Bld) 26.0 % Normal 20.0-40.[address] [facility] Comment on above: Performed By: #### A DIFF, ANEU, CBC #### [address] [address] Monocyte, Absolute 0.9 10 3/mcL Normal 0.1-1.4 [facility] Comment on above: Performed By: #### A DIFF, ANEU, CBC #### [address] [address] Monocytes/100 WBC (Bld) 6.2 % Normal 2.0-13.0 [facility] Comment on above: Performed By: #### A DIFF ANEU, CBC #### [address] [address] Neutrophils/100 WBC (Bld) 63.6 % Normal 50.0-75.[address] [facility] Comment on above: Performed By: #### A DIFF ANEU, CBC #### [address] [address] .GFRon 01-03-2025 Estimated Glomerular Filtration Rate 109 ml/min/1.73sqm Normal [facility] Comment on above: Result Comment: Stages of Chronic Kidney Disease (CKD) Stage Description eGFR(ml/min/1.73 sq.m.) CKD 1 Normal kidney function or >=90 normal kindney function with possible kidney damage (ex. Proteinuria) CKD 2 Kidney damage with mild loss 60-89 of kidney function CKD 3a Mild to moderate loss of kidney 45-59 function CKD 3b Moderate to severe loss of 30-44 of kindey function CKD 4 Severe loss of kidney function 15-29 CKD 5 Kidney failure <15 Note: (go live 2024) the eGFR calculation was updated to the 2020 CKD-EPI creatinine equation without a race factor to calculate the eGFR results. Performed By: #### A JARRET ANEU, CBC #### [address] [address] .NEUABSon 01-03-2025 Neutrophil, Absolute 8.9 10 3/mcL High 2.3-8.1 [facility] MAIN Comment on above: Performed By: #### A DIFF ANEU, CBC #### [address] [address] APTTon 01-03-2025 aPTT Coag (Bld) [Time] 31.5 s Normal 25.0-35.0 [facility] MAIN Comment on above: Result Comment: For Heparin anticoagulation therapy, the recommended therapeutic range is: 54-77 seconds (APTT Correlation with Anti-Xa therapeutic range of 0.3-0.7 units/ml). PLEASE REFERENCE THE PHARMACY PROTOCOL FOR DOSING. Performed By: #### A DIFF, ANEU, CBC #### [address] [address] BMPon 01-03-2025 BUN/Creatinine Ratio 26.2 ratio High 10.0-22.0 [facility] MAIN Comment on above: Performed By: #### A DIFF, ANEU, CBC #### [address] [address] Calcium [Mass/Vol] 9.5 mg/dL Normal 8.7-10.4 [facility] MAIN Comment on above: Performed By: #### A DIFF, ANEU, CBC #### [address] [address] Chloride [Moles/Vol] 105 mmol/L Normal 98-110 [facility]IN Comment on above: Performed By: #### A DIFF, ANEU, CBC #### [address] [address] CO2 [Moles/Vol] 29 mmol/L Normal 22-[address] [facility] Comment on above: Performed By: #### A DIFF, ANEU, CBC #### [address] [address] Creatinine [Mass/Vol] 0.61 mg/dL Normal 0.50-1.20 [facility] MA[facility] Comment on above: Result Comment: Test ing performed on [employer] analyzer using enzymatic creatinine methodology. Performed By: #### A DIFF, ANEU, CBC #### [address] [address] Electrolyte Balance 6.0 mEq/L Normal 4.0-15.0 [facility] MAIN Comment on above: Performed By: #### A DIFF, ANEU, CBC #### [address] [address] Glucose [Mass/Vol] 99 mg/dL Normal 70-110 [facility] Comment on above: Performed By: #### A DIFF, ANEU, CBC #### [address] [address] Potassium [Moles/Vol] 4.2 mmol/L Normal 3.5-5.0 [facility] Comment on above: Performed By: #### A DIFF, ANEU, CBC #### [address] [address] Sodium [Moles/Vol] 140 mmol/L Normal 136-145 [facility] Comment on above: Performed By: #### A DIFF, ANEU, CBC #### [address] [address] Urea nitrogen [Mass/Vol] 16.0 mg/dL Normal 8.0-22.[address] [facility] Comment on above: Performed By: #### A DIFF, ANEU, CBC #### [address] [address] CBCon 01-03-2025 Erythrocyte distribution width (RBC) [Ratio] 17.1 % High 11.5-15.[address] [facility] Comment on above: Performed By: #### B MP, CBC, ANEU, MG, GFR, ADIFF #### [place] [address] Hematocrit (Bld) [Volume fraction] 28.9 % Low 34.0-46.[address] [facility] Comment on above: Performed By: #### B MP, CBC, ANEU, MG, GFR, ADIFF #### [place] [address] Hgb 9.4 G/dL Low 12.0-16.[address] [facility] Comment on above: Performed By: #### B MP, CBC, ANEU, MG, GFR, ADIFF #### [place] [phone] MCH (RBC) [Entitic mass] 27.7 pg Normal 27.0-33.[address] [facility] Comment on above: Performed By: #### B MP, CBC, ANEU, MG, GFR, ADIFF #### [place] [id number] MCHC 32.4 G/dL Normal 32.0-36.[address] [facility] Comment on above: Performed By: #### B MP, CBC, ANEU, MG, GFR, ADIFF #### [place] [address] MCV (RBC) [Entitic vol] 85.7 fL Normal 80.0-99.0 [facility] Comment on above: Performed By: #### B MP, CBC, ANEU, MG, GFR, ADIFF #### [place] [address] Platelet 272 10 3/mcL Normal 150-[address] [facility] Comment on above: Performed By: #### B MP, CBC, ANEU, MG, GFR, ADIFF #### [place] [address] Platelet mean volume (Bld) [Entitic vol] 8.8 fL Normal 6.6-10.[address] [facility] Comment on above: Performed By: #### B MP, CBC, ANEU, MG, GFR, ADIFF #### [place] [address] RBC 3.38 10 6/mcL Low 4.10-5.[address] [facility] Comment on above: Performed By: #### B MP, CBC, ANEU, MG, GFR, ADIFF #### [place] [address] WBC 14.0 10 3/mcL High 4.5-10.[address] [facility] Comment on above: Performed By: #### B MP, CBC, ANEU, MG, GFR, ADIFF #### [place] [address] FIBon 01-03-2025 Fibrinogen >700 High 250-[address] [facility] Comment on above: Performed By: #### A DIFF, ANEU, CBC #### [place] [address] LABORATORYOrdered By: SYSTEM SYSTEM on 01-03-2025 aPTT Coag (Bld) [Time] 31.5 s Normal 25.0 - 35.0 seconds AH [facility] Comment on above: Interpretive Data: F or Heparin anticoagulation therapy, the recommended therapeutic range is: 54-77 seconds (APTT Correlation with Anti-Xa therapeutic range of 0.3-0.7 units/ml). PLEASE REFERENCE THE PHARMACY PROTOCOL FOR DOSING. PT Coag (PPP) [Time] 11.6 s Normal 9.0 - 1 4.4 seconds AH [facility] Comment on above: Interpretive Data: E ffective 02/26/08, Protime results may be affected by some antibiotics (i.e. Ciprofloxacin, Azithromycin, Bactrim) which may potentiate the action of oral anticoagulants, with further increases in Protime/INR. PT International Ratio 1.0 ratio Invalid Interpretation Code [facility] Comment on above: Interpretive Data: T luis a [place] [employer] (CHEST, 1991, 102:[id number]) recommended therapeutic range for oral anticoagulant therapy is: LOW RISK: Prophylaxis of venous thrombosis INR: 2.0-3.0 Treatment of pulmonary embolism 2.0-3.0 Prevention of systemic embolism 2.0-3.0 HIGH RISK: Mechanical prosthetic valves 2.5-3.5 Fibrinogen mg/dL High 250 - 560 mg/dL [facility] Magnesium [Mass/Vol] 2.0 mg/dL Normal 1.6 - 2 .4 mg/dL ADM SS MGon 01-03-2025 Magnesium [Mass/Vol] 2.0 mg/dL Normal 1.6-2.4 [facility] Comment on above: Performed By: #### A DIFF, ANEU, CBC #### [place] [address] PROon 01-03-2025 INR Coag (PPP) [Relative time] 1.0 {INR} Normal [facility] Comment on above: Result Comment: The [place] [employer] (CHEST, 1991, 102:[id number]) recommended therapeutic range for oral anticoagulant therapy is: LOW RISK: Prophylaxis of venous thrombosis INR: 2.0-3.0 Treatment of pulmonary embolism 2.0-3.0 Prevention of systemic embolism 2.0-3.0 HIGH RISK: Mechanical prosthetic valves 2.5-3.5 Performed By: #### P RO #### [address] [address] PT Coag (PPP) [Time] 11.6 s Normal 9.0-14.4 [facility] Comment on above: Result Comment: Effe ctive 02/26/08, Protime results may be affected by some antibiotics (i.e. Ciprofloxacin, Azithromycin, Bactrim) which may potentiate the action of oral anticoagulants, with further increases in Protime/INR. Performed By: #### P RO #### [facility] [address] [place] [id number] .Auto Diffon 01-02-2025 Basophil, Absolute 0.1 10 3/mcL Normal 0.0-0.3 [facility] Comment on above: Performed By: #### M G, BMP, CBC, GFR, ANEU, ADIFF #### [address] [address] Basophils/100 WBC (Bld) 0.7 % Normal 0.0-2.5 [facility] Comment on above: Performed By: #### M G, BMP, CBC, GFR, ANEU, ADIFF #### [address] [address] Eosinophil, Absolute 0.4 10 3/mcL Normal 0.0-0.7 [facility] Comment on above: Performed By: #### M G, BMP, CBC, GFR, ANEU, ADIFF #### [address] [address] Eosinophils/100 WBC (Bld) 3.5 % Normal 0.0-6.0 [facility] Comment on above: Performed By: #### M G, BMP, CBC, GFR, ANEU, ADIFF #### [address] [address] Lymphocyte, Absolute 3.3 10 3/mcL Normal 0.9-4.3 [facility] Comment on above: Performed By: #### M G, BMP, CBC, GFR, ANEU, ADIFF #### [address] [address] Lymphocytes/100 WBC (Bld) 25.5 % Normal 20.0-40.0 [facility] Comment on above: Performed By: #### M G, BMP, CBC, GFR, ANEU, ADIFF #### [address] [address] Monocyte, Absolute 0.7 10 3/mcL Normal 0.1-1.4 [facility] Comment on above: Performed By: #### M G, BMP, CBC, GFR, ANEU, ADIFF #### [address] [address] Monocytes/100 WBC (Bld) 5.2 % Normal 2.0-13.0 [facility] Comment on above: Performed By: #### M G, BMP, CBC, GFR, ANEU, ADIFF #### [address] [address] Neutrophils/100 WBC (Bld) 65.1 % Normal 50.0-75.0 [facility] Comment on above: Performed By: #### M G, BMP, CBC, GFR, ANEU, ADIFF #### [address] [address] .GFRon 01-02-2025 Estimated Glomerular Filtration Rate 109 ml/min/1.73sqm Normal [facility] Comment on above: Result Comment: Stages of Chronic Kidney Disease (CKD) Stage Description eGFR(ml/min/1.73 sq.m.) CKD 1 Normal kidney function or >=90 normal kindney function with possible kidney damage (ex. Proteinuria) CKD 2 Kidney damage with mild loss 60-89 of kidney function CKD 3a Mild to moderate loss of kidney 45-59 function CKD 3b Moderate to severe loss of 30-44 of kindey function CKD 4 Severe loss of kidney function 15-29 CKD 5 Kidney failure <15 Note: (go live 2024) the eGFR calculation was updated to the 2020 CKD-EPI creatinine equation without a race factor to calculate the eGFR results. Performed By: #### M G, BMP, CBC, GFR, ANEU, ADIFF #### [address] [address] .NEUABSon 01-02-2025 Neutrophil, Absolute 8.3 10 3/mcL High 2.3-8.1 [facility] Comment on above: Performed By: #### M G, BMP, CBC, GFR, ANEU, ADIFF #### [address] [address] BMPon 01-02-2025 BUN/Creatinine Ratio 25 ratio Normal 7-27 [facility] Comment on above: Performed By: #### M G, BMP, CBC, GFR, ANEU, ADIFF #### [address] [address] Calcium [Mass/Vol] 8.6 mg/dL Normal 8.4-10.2 [facility] Comment on above: Performed By: #### M G, BMP, CBC, GFR, ANEU, ADIFF #### [place] [id number] Chloride [Moles/Vol] 108 mmol/L High 98-107 [facility] Comment on above: Performed By: #### M G, BMP, CBC, GFR, ANEU, ADIFF #### [place] [address] CO2 [Moles/Vol] 30 mmol/L High 22-29 [facility] Comment on above: Performed By: #### M G, BMP, CBC, GFR, ANEU, ADIFF #### [place] [address] Creatinine [Mass/Vol] 0.61 mg/dL Normal 0.51-0.95 [facility] Comment on above: Performed By: #### M G, BMP, CBC, GFR, ANEU, ADIFF #### [place] [address] Electrolyte Balance 5.0 mEq/L Normal 4.0-15.0 [facility] Comment on above: Performed By: #### M G, BMP, CBC, GFR, ANEU, ADIFF #### [place] [address] Glucose [Mass/Vol] 121 mg/dL High 70-105 [facility] Comment on above: Performed By: #### M G, BMP, CBC, GFR, ANEU, ADIFF #### [place] [address] Potassium [Moles/Vol] 4.0 mmol/L Normal 3.5-5.1 [facility] Comment on above: Performed By: #### M G, BMP, CBC, GFR, ANEU, ADIFF #### [address] [address] Sodium [Moles/Vol] 143 mmol/L Normal 136-145 [facility] Comment on above: Performed By: #### M G, BMP, CBC, GFR, ANEU, ADIFF #### [address] [address] Urea nitrogen [Mass/Vol] 15 mg/dL Normal 7-18 [facility] Comment on above: Performed By: #### M G, BMP, CBC, GFR, ANEU, ADIFF #### [address] [address] CBCon 01-02-2025 Erythrocyte distribution width (RBC) [Ratio] 16.6 % High 11.5-15.5 [facility] Comment on above: Performed By: #### M G, BMP, CBC, GFR, ANEU, ADIFF #### [place] [id number] Hematocrit (Bld) [Volume fraction] 27.2 % Low 34.0-46.0 [facility] Comment on above: Performed By: #### M G, BMP, CBC, GFR, ANEU, ADIFF #### [place] [id number] Hgb 8.8 G/dL Low 12.0-16.0 [facility] Comment on above: Performed By: #### M G, BMP, CBC, GFR, ANEU, ADIFF #### [address] [address] MCH (RBC) [Entitic mass] 27.8 pg Normal 27.0-33.0 [facility] Comment on above: Performed By: #### M G, BMP, CBC, GFR, ANEU, ADIFF #### [place] [id number] MCHC 32.5 G/dL Normal 32.0-36.0 [facility] Comment on above: Performed By: #### M G, BMP, CBC, GFR, ANEU, ADIFF #### [place] [phone] MCV (RBC) [Entitic vol] 85.6 fL Normal 80.0-99.0 [facility] Comment on above: Performed By: #### M G, BMP, CBC, GFR, ANEU, ADIFF #### [address] [address] Platelet 233 10 3/mcL Normal 150-450 [facility] Comment on above: Performed By: #### M G, BMP, CBC, GFR, ANEU, ADIFF #### [address] [address] Platelet mean volume (Bld) [Entitic vol] 8.9 fL Normal 6.6-10.5 [facility] Comment on above: Performed By: #### M G, BMP, CBC, GFR, ANEU, ADIFF #### [address] [address] RBC 3.17 10 6/mcL Low 4.10-5.30 [facility] Comment on above: Performed By: #### M G, BMP, CBC, GFR, ANEU, ADIFF #### [address] [address] WBC 12.8 10 3/mcL High 4.5-10.8 [facility] Comment on above: Performed By: #### M G, BMP, CBC, GFR, ANEU, ADIFF #### [address] [address] MGon 01-02-2025 Magnesium [Mass/Vol] 2.0 mg/dL Normal 1.8-2.4 [facility] Comment on above: Performed By: #### M G, BMP, CBC, GFR, ANEU, ADIFF #### [address] [address] MRI SPINE LUMBAR W/O CONTRAS Ton 01-02-2025 MRI SPINE LUMBAR W/O CONTRAST ORIGINAL EXAMINATION: MRI OF THE LUMBAR SPINE WITHOUT CONTRAST, 01/01/2025 5:17 pm TECHNIQUE: Multiplanar multisequence MRI of the lumbar spine was performed without the administration of intravenous contrast. COMPARISON: None. HISTORY: ORDERING SYSTEM PROVIDED HISTORY: Reason for Exam: rule out spinal stenosis FINDINGS: BONES/ALIGNMENT: There is normal alignment of the spine. The vertebral body heights are maintained. Hemangioma of bone at L4. SPINAL CORD: The conus terminates normally. SOFT TISSUES: Small renal cyst not well imaged. L1-L2: Facet degenerative changes. No significant canal or foraminal stenosis. L2-L3: Facet hypertrophy. No significant canal or foraminal stenosis. L3-L4: Bilateral facet joint cysts are present each measuring 5-6 mm in conjunction with bilateral facet hypertrophy results in severe canal stenosis. Mild bilateral foraminal narrowing is present. L4-L5: Facet degeneration with 5 mm posterior right facet joint cyst. L5-S1: Disc and facet degeneration without significant canal or foraminal stenosis. 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 Interpreted by: Angela Franklin Preliminary Report By: Angela Franklin Electronically signed By Angela Franklin Dictated Date: 01/02/2025 5:23:39 AM Prelim Date: 01/02/2025 5:30:09 AM Sign Date: 01/02/2025 5:30:09 AM Ordering Provider: KEATON ETIENNE Normal [facility] .Auto Diffon 01-01-2025 Basophil, Absolute 0.1 10 3/mcL Normal 0.0-0.3 [facility] Comment on above: Performed By: #### U AMIC, UA #### [address] [address] Basophils/100 WBC (Bld) 0.8 % Normal 0.0-2.5 [facility] Comment on above: Performed By: #### U AMIC, UA #### [address] [address] Eosinophil, Absolute 0.2 10 3/mcL Normal 0.0-0.7 [facility] Comment on above: Performed By: #### U AMIC, UA #### [address] [address] Eosinophils/100 WBC (Bld) 1.1 % Normal 0.0-6.0 [facility] Comment on above: Performed By: #### U AMIC, UA #### [place] [address] [place], [place] [address] Lymphocyte, Absolute 2.4 10 3/mcL Normal 0.9-4.3 [facility] Comment on above: Performed By: #### U AMIC, UA #### [place] [id number] [place], [place] [address] Lymphocytes/100 WBC (Bld) 14.6 % Low 20.0-40.0 [facility] Comment on above: Performed By: #### U AMIC, UA #### [place] [id number] [place], [place] [address] Monocyte, Absolute 0.9 10 3/mcL Normal 0.1-1.4 [facility] Comment on above: Performed By: #### U AMIC, UA #### [id number] [place], [place] [address] Monocytes/100 WBC (Bld) 5.3 % Normal 2.0-13.0 [facility] Comment on above: Performed By: #### U AMIC, UA #### [address] [address] Neutrophils/100 WBC (Bld) 78.2 % High 50.0-75.0 [facility] Comment on above: Performed By: #### U AMIC, UA #### [address] [address] .GFRon 01-01-2025 Estimated Glomerular Filtration Rate 106 ml/min/1.73sqm Normal [facility] Comment on above: Result Comment: Stages of Chronic Kidney Disease (CKD) Stage Description eGFR(ml/min/1.73 sq.m.) CKD 1 Normal kidney function or >=90 normal kindney function with possible kidney damage (ex. Proteinuria) CKD 2 Kidney damage with mild loss 60-89 of kidney function CKD 3a Mild to moderate loss of kidney 45-59 function CKD 3b Moderate to severe loss of 30-44 of kindey function CKD 4 Severe loss of kidney function 15-29 CKD 5 Kidney failure <15 Note: (go live 2024) the eGFR calculation was updated to the 2020 CKD-EPI creatinine equation without a race factor to calculate the eGFR results. Performed By: #### U AMIC, UA #### [address] [address] .MDWon 01-01-2025 Monocyte Distribution Width Not performed Normal 0.00-20.00 [facility] Comment on above: Result Comment: MDW testing performed only on adult ER patients between the ages of 18-89 years. Performed By: #### U AMIC, UA #### [address] [address] .NEUABSon 01-01-2025 Neutrophil, Absolute 12.8 10 3/mcL High 2.3-8.1 A [facility] Comment on above: Performed By: #### U AMIC, UA #### [address] [address] BMPon 01-01-2025 BUN/Creatinine Ratio 21 ratio Normal 7-27 [facility] Comment on above: Performed By: #### U AMIC, UA #### [address] [address] Calcium [Mass/Vol] 8.6 mg/dL Normal 8.4-10.2 [facility] Comment on above: Performed By: #### U AMIC, UA #### [address] [address] Chloride [Moles/Vol] 104 mmol/L Normal 98-107 [facility] Comment on above: Performed By: #### U AMIC, UA #### [address] [address] CO2 [Moles/Vol] 30 mmol/L High 22-29 [facility] Comment on above: Performed By: #### U AMIC, UA #### [address] [address] Creatinine [Mass/Vol] 0.67 mg/dL Normal 0.51-0.95 [facility] Comment on above: Performed By: #### U AMIC, UA #### [address] [address] Electrolyte Balance 5.0 mEq/L Normal 4.0-15.0 [facility] Comment on above: Performed By: #### U AMIC, UA #### [address] [address] Glucose [Mass/Vol] 114 mg/dL High 70-105 [facility] Comment on above: Performed By: #### U AMIC, UA #### [address] [address] Potassium [Moles/Vol] 4.4 mmol/L Normal 3.5-5.1 [facility] Comment on above: Performed By: #### U AMIC, UA #### [address] [address] Sodium [Moles/Vol] 139 mmol/L Normal 136-145 [facility] Comment on above: Performed By: #### U AMIC, UA #### [address] [address] Urea nitrogen [Mass/Vol] 14 mg/dL Normal 7-18 [facility] Comment on above: Performed By: #### U AMIC, UA #### [address] [address] CBCon 01-01-2025 Erythrocyte distribution width (RBC) [Ratio] 16.6 % High 11.5-15.5 [facility] Comment on above: Performed By: #### U AMIC, UA #### [address] [address] Hematocrit (Bld) [Volume fraction] 30.7 % Low 34.0-46.0 [facility] Comment on above: Performed By: #### U AMIC, UA #### [address] [address] Hgb 10.0 G/dL Low 12.0-16.0 [facility] Comment on above: Performed By: #### U AMIC, UA #### [address] [address] MCH (RBC) [Entitic mass] 27.7 pg Normal 27.0-33.0 [facility] Comment on above: Performed By: #### U AMIC, UA #### [address] [address] MCHC 32.5 G/dL Normal 32.0-36.0 [facility] Comment on above: Performed By: #### U AMIC, UA #### [address] [address] MCV (RBC) [Entitic vol] 85.4 fL Normal 80.0-99.0 A [facility] Comment on above: Performed By: #### U AMIC, UA #### [address] [address] Platelet 273 10 3/mcL Normal 150-450 [facility] Comment on above: Performed By: #### U AMIC, UA #### [address] [address] Platelet mean volume (Bld) [Entitic vol] 8.6 fL Normal 6.6-10.5 [facility] Comment on above: Performed By: #### U AMIC, UA #### [address] [address] RBC 3.60 10 6/mcL Low 4.10-5.30 [facility] Comment on above: Performed By: #### U AMIC, UA #### [address] [address] WBC 16.3 10 3/mcL High 4.5-10.8 [facility] Comment on above: Performed By: #### U AMIC, UA #### [address] [address] [address] THORAX W/ CONTRASTon 12-13 CT THORAX W/ CONTRAST ORIGINAL EXAMINATION: CT OF THE CHEST WITH CONTRAST 01/01/2025 11:46 am TECHNIQUE: CT of the chest was performed with the administration of intravenous contrast. Multiplanar reformatted images are provided for review. Automated exposure control, iterative reconstruction, and/or weight based adjustment of the mA/kV was utilized to reduce the radiation dose to as low as reasonably achievable. COMPARISON: Chest x-ray January 17, 2018 HISTORY: ORDERING SYSTEM PROVIDED HISTORY: Reason for Exam: chest wall/breast bruising FINDINGS: Cervical spine postoperative changes are present. There is mild degenerative change noted in the thoracic spine. Thoracic vertebrae show normal height with no acute compression seen. No other osseous abnormality seen. No pulmonary consolidation is evident. No pleural fluid seen. No mediastinal adenopathy is evident and there is no other mediastinal abnormality. There is very prominent subcutaneous induration identified throughout the upper chest wall anteriorly and eccentric toward the right. Additionally, there is a large lobulated hyperdense lesion in the region of the deep right breast, and this is incompletely visible due to size. It is at least 10.7 x 8.6 cm in size. This is most compatible with a prominent hematoma. This extends from the breast to the region of the pectoralis muscles. No additional contributory abnormality seen. IMPRESSION: Large deep right breast/chest wall hematoma. Prominent adjacent induration could be inflammatory or represent contusion. No definite acute rib fracture is visible on this exam. Interpreted by: Mar Trevizo MD Preliminary Report By: Mar Trevizo MD Electronically signed By Mar Trevizo MD Dictated Date: 01/01/2025 11:58:51 AM Prelim Date: 01/01/2025 12:01:53 PM Sign Date: 01/01/2025 12:01:53 PM Ordering Provider: CAREY TAN Normal [facility] UAon 01-01-2025 Color (U) Yellow Normal [facility] Comment on above: Performed By: #### U A #### [address] [address] Glucose (U) [Mass/Vol] Negative Normal Negative [facility] Comment on above: Performed By: #### U A #### [address] [address] Ketones Ql (U) Negative Normal Negative [facility] Comment on above: Performed By: #### U A #### [address] [address] UA Appear Clear Normal Clear [facility] Comment on above: Performed By: #### U A #### [place] [address] UA Blood Negative Normal Negative [facility] Comment on above: Performed By: #### U A #### [address] [place] [address] UA Leuk Est Negative Normal Negative [facility] Comment on above: Performed By: #### U A #### [address] [place] [address] UA Nitrite Negative Normal Negative [facility] Comment on above: Performed By: #### U A #### [address] [place] [address] UA pH 7.5 Normal 5.0 - 8.0 [facility] Comment on above: Performed By: #### U A #### [address] [place] [address] UA Protein Negative Normal Negative [facility] Comment on above: Performed By: #### U A #### [address] [place] [address] UA Spec Grav 1.010 Abnormal 1.015-1.025 [facility] Comment on above: Performed By: #### U A #### [address] [place] [address] UA Specimen Type Clean Catch Normal [facility] Comment on above: Performed By: #### U A #### [address] [place] [address] UA Urobilinogen 0.2 E.U./dL Normal 0.2-1.0 [facility] Comment on above: Performed By: #### U A #### [address] [place] [address] Urobilinogen (U) [Mass/Vol] Negative Normal Negative [facility] Comment on above: Performed By: #### U A #### [address] [place] [address] ED NOTEon 12-28-2024 ED NOTE HNO ID: [id number] Author: DERRICK LUNA RN Service: ? 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 Discharge paperwork and follow up discussed. [facility] ED NOTE HNO ID: [id number] Author: DERRICK LUNA RN Service: ? Author Type: Registered Nurse Type: ED Notes Filed: 12/28/2024 14:02 Note Text: Assisted pt to bathroom. Pt able to pivot and stand with minimal assistance. Able to walk a few steps with walker but continues to complain of pain. Dr Noble aware and in talking with pt. [facility] ED NOTE HNO ID: [id number] Author: DERRICK LUNA RN Service: ? Author Type: Registered Nurse Type: ED Notes Filed: 12/28/2024 12:59 Note Text: Pt arrived via medic with c/o leg pain. Pt was here other day for. States toradol was helpful before. States she took percocet earlier for without relief. [place], warm, dry. No apparent distress. Alert and oriented. [facility] ED PROV NOTEon 12-28-2024 ED PROV NOTE HNO ID: [id number] Author: TALHA NOBLE MD Service: Emergency Medicine Author Type: Physician Type: ED Provider Notes Filed: 12/28/2024 14:13 Note Text: ED Provider Note Patient Name: Mitchell Brooks : 1975 SERVICE DATE: 12/28/24 History Patient presents with: Leg Pain HPI Mitchell Brooks 49 year old female here for evaluation of right leg pain. She has had sciatica for the last few years it has been worse the last few days about 2 to 3 days ago she was seen in the emergency department. She was sent home on Percocet she was taking and she was getting some relief. She took a dose at about 1030 and the pain was breaking through it a bit so she called the ambulance and was brought into the emergency room for evaluation no fevers no chills no IV drug use no recent falls or injuries no difficulty controlling her bowel or bladder she does have pain when she ambulates she describes it as "excruciating". When she was here the patient had CT scans of the abdomen pelvis and of the LS spine which showed some narrowing of the canal but no acute process no acute herniated disc no evidence of a cauda equina syndrome she gives no symptoms today of cauda equina syndrome. PAST MEDICAL HISTORY Diagnosis Date RAFIA (acute kidney injury) 07/20/2013 Baseline Cr 0.58 07/20 Cr 1.6 Possibly 2/2 sepsis (organ damage) as pt received 8L IVFs Making urine appropriately Plan: IVFs Anxiety Asthma (HCC) Cervical spondylosis Chronic pain Debility HTN (hypertension) Hypothyroid Irritable bowel syndrome Lymphedema Morbid obesity (HCC) Necrotizing fasciitis (HCC) 08/14/2012 thigh wound Septic shock 07/20/2013 On Dopamine, vasopressine and NE upon admission Given solumedrol 125mg IV at OSH Given 8L at OSH Started on meropenem, ceftriaxone, vanc and clindamycin at OSH (one dose of each) ? Necrotizing fascitis? Plan: Continue pressors Bolus NS 500cc once Hydrocortisone 100mg q8hrs Start vanc, clinda and zosyn Gen Surgery consulted --> to the OR for debridement. PAST SURGICAL HISTORY Procedure Laterality Date PAST SURGICAL HISTORY OF c section x 2 PAST SURGICAL HISTORY OF 2013 tracheostomy PAST SURGICAL HISTORY OF Right 2013 debridement of thigh wound TONSILLECTOMY HX TUBAL LIGATION, FAMILY HISTORY Problem Relation Age of Onset Diabetes Father Heart Paternal Grandmother Heart Paternal Grandfather other (liver cancer [Other]) Other mother Social History Tobacco Use Smoking status: Every Day Current packs/day: 0.50 Average packs/day: 0.5 packs/day for 25.0 years (12.5 ttl pk-yrs) Types: Cigarettes Smokeless tobacco: Never Tobacco comments: down to maybe 6 cigarettes through the day Vaping Use Vaping status: Never Used Substance and Sexual Activity Alcohol use: No Drug use: No Sexual activity: Yes control/protection: Tubal Ligation ALLERGIES Allergen Reactions Lactose Diarrhea Aleve [Naproxen Sod* Itching itch diffuse Ciprofloxacin Hives Codeine Itching Ibuprofen Rash Morphine Anaphylaxis SOB, throat swelled shut Vicodin [Hydrocodon* Anaphylaxis 06/19/2015 taking percocet without any side effects reported Zanaflex [Tizanidin* Rash Review of Systems Physical Exam Vitals [12/28/24 1256] BP Pulse Temp Temp src Resp SpO2 Weight Height 103/60 72 36.5 ?C (97.7 ?F) Temporal 16 96 % (!) 153.8 kg (339 lb) -- Physical Exam Vitals and nursing note reviewed. Constitutional: General: She is not in acute distress. Appearance: Normal appearance. She is not ill-appearing, toxic-appearing or diaphoretic. HENT: Head: Normocephalic and atraumatic. Cardiovascular: Rate and Rhythm: Normal rate and regular rhythm. Heart sounds: Normal heart sounds. No murmur heard. No friction rub. No gallop. Pulmonary: Effort: Pulmonary effort is normal. No respiratory distress. Breath sounds: Normal breath sounds. No stridor. No wheezing, rhonchi or rales. Chest: Chest wall: No tenderness. Abdominal: General: Abdomen is flat. Bowel sounds are normal. There is no distension. Palpations: Abdomen is soft. Tenderness: There is no abdominal tenderness. There is no guarding or rebound. Musculoskeletal: General: No swelling, tenderness, deformity or signs of injury. Cervical back: Normal range of motion and neck supple. Right lower leg: No edema. Left lower leg: No edema. Skin: General: Skin is warm and dry. Neurological: General: No focal deficit present. Mental Status: She is alert and oriented to person, place, and time. Cranial Nerves: No cranial nerve deficit. Sensory: No sensory deficit. Motor: No weakness. Comments: Mildly positive straight leg raise on the right at about 30 degrees weakness Diagnostic Testing ED Labs Ordered and Reviewed - No data to display Procedures ED Course / Clinical Impression Clinical Impressions as of 12/28/24 1412 Sciatica of right side Vice President Quality Assurance (more content not included)... Normal [facility] ALLIED HEALTHon 12-25-2024 ALLIED HEALTH HNO ID: [id number] Author: CLARISSA OWEN RT(R) Service: Radiology Author Type: Orange Picking Supervisor Type: Allied Health Filed: 12/25/2024 16:32 Note Text: Radiology Service Progress Note PATIENT NAME: Mitchell Brooks DATE OF SERVICE: December 25, 2024 TIME: 4:32 PM PATIENT IDENTITY VERIFICATION COMPLETED USING TWO (2) IDENTIFIERS: Name and Date of confirmed by patient verbally. FALL SCREENING: Has the patient had 2 falls in the last year or 1 fall with injury or currently using an Ambulatory Assistive Device (Walker, Cane, Wheelchair, Crutches, etc.)? Emergency Room Patient: Screened in ED PATIENT GENDER DATA: Assigned female at . status: : No status: NO. PATIENT RELEVANT IMPLANT DATA REVIEWED: Yes PATIENT PRESENTS WITH AN IMPLANTABLE OR ATTACHED ANESTHESIOLOGY MEDICAL DOCTOR: No RADIOLOGY DEPARTMENT: CT; Exam(s) Completed: Abdomen/Pelvis PERIPHERAL IV DATA: Not applicable SIGNED BY: GARDENIA Owens) / Kaushik Hays December 25, 2024 4:[address] [facility] ALLIED HEALTH HNO ID: [id number] Author: CLARISSA OWEN RT(R) Service: Radiology Author Type: Orange Picking Supervisor Type: Allied Health Filed: 12/25/2024 13:43 Note Text: Radiology Service Progress Note PATIENT NAME: Micthell Brooks DATE OF SERVICE: December 25, 2024 TIME: 1:43 PM PATIENT IDENTITY VERIFICATION COMPLETED USING TWO (2) IDENTIFIERS: Name and Date of confirmed by patient verbally. FALL SCREENING: Has the patient had 2 falls in the last year or 1 fall with injury or currently using an Ambulatory Assistive Device (Walker, Cane, Wheelchair, Crutches, etc.)? Emergency Room Patient: Screened in ED PATIENT GENDER DATA: Assigned female at . status: : No status: NO. PATIENT RELEVANT IMPLANT DATA REVIEWED: Yes PATIENT PRESENTS WITH AN IMPLANTABLE OR ATTACHED ANESTHESIOLOGY MEDICAL DOCTOR: No RADIOLOGY DEPARTMENT: CT; Exam(s) Completed: Spine PERIPHERAL IV DATA: Not applicable SIGNED BY: GARDENIA Owens) / Kaushik Hays December 25, 2024 1:43 PM [facility] CT ABD/PEL WO IVCONon 2024 CT ABD/PEL WO IVCON * * *Final Report* * * DATE OF EXAM: Dec 25 2024 4:24PM [facility] 0531 - CT ABD/PEL WO IVCON / PROCEDURE REASON: Adnexal mass suspected * * * * Physician Interpretation * * * * EXAMINATION: CT ABDOMEN AND PELVIS WITHOUT IV CONTRAST CLINICAL HISTORY: Pelvic adnexal mass TECHNIQUE: Non-IV contrast imaging of the abdomen and pelvis was performed using standard technique, scanning from just above the dome of the diaphragm to the symphysis pubis. Unenhanced imaging is limited for the evaluation of some intra-abdominal and pelvic pathology. MQ: CTAPWO_3 Contrast: IV: None : ml of CT Radiation dose: Integrated Dose-length product (DLP) for this visit = 1074.27 mGy*cm. CT Dose Reduction Employed: Automated exposure control(AEC) and iterative recon COMPARISON: CT lumbar spine same day, CT abdomen pelvis 01/09/2023 RESULT: Abdomen / Pelvis: Liver: Unremarkable. Biliary: Gallbladder is unremarkable. Spleen: No splenomegaly. Chronic cyst. Pancreas: Unremarkable. Adrenals: No mass. Kidneys: No hydronephrosis. Nonobstructive left renal calculus. GI Tract: No bowel dilation. Appendix is not inflamed. Lymph Nodes: No lymphadenopathy. Mesentery/peritoneum : No ascites. Retroperitoneum: No mass. Vasculature: Aorta is nonaneurysmal. Pelvis: Previously described pelvic mass probably represents the bladder which is unremarkable given the limits of a noncontrast exam. Chronic 2 cm left adnexal cyst series 2 image 96. Uterus is present. Bones/Soft Tissues: No acute abnormality. Osseous findings. Lower thorax: Noncontributory. Localizer images: No additional findings. IMPRESSION: No acute findings. Portable Track Crew Chief: DEB Transcribe Date/Time: Dec 25 2024 4:48P Dictated by : OVIDIO NELSON MD This examination was interpreted and the report reviewed and electronically signed by: OVIDIO NELSON MD on Dec 25 2024 4:54PM EST [id number] Normal [facility] CT LUMBAR SPINE WO IVCONon 0 12-25-2024 CT LUMBAR SPINE WO IVCON * * *Final Report* * * DATE OF EXAM: Dec 25 2024 1:42PM [facility] 0508 - CT LUMBAR SPINE WO IVCON / PROCEDURE REASON: Spinal stenosis, lumbar * * * * Physician Interpretation * * * * EXAMINATION: CT LUMBAR SPINE WO IVCON CLINICAL HISTORY: Bilateral lower extremity pain. TECHNIQUE: Spiral, high resolution axial unenhanced images were obtained from the thoracolumbar junction to the sacrum with sagittal and coronal planar reconstructions. MQ: CTLSPWO_3 CT Radiation dose: Integrated Dose-Length Product (DLP) for this visit = 1254.06 mGy*cm. CT Dose Reduction Employed: Automated exposure control(AEC) and iterative recon COMPARISON: Pelvis, right hip and lumbar spine radiographs 04/05/2024, CT abdomen and pelvis study 01/09/2023 and lumbar spine radiographs 11/03/2015. RESULT: Counting reference: Lumbosacral junction. For the purposes of this report, L4-5 is considered the level of the iliac crest and assume there are 5 lumbar-type vertebrae. Anatomic variant: None. Rivet Tapping Machine Operator (topogram) images: No additional findings. Limitations: Body habitus (quantum mottle). Alignment: Alignment is anatomic. Bone marrow /fracture: No evidence of a lytic or blastic process in the visualized spine. No evidence of acute or chronic fracture. Paraspinal soft tissues: Small retroperitoneal and small and mild prominent iliac chain lymph nodes considered likely reactive. Incompletely visualized uterus which appears right of midline. Incompletely visualized 4.5 cm density left hemipelvis. Lower thoracic spine: The visualized lower thoracic bony canal and foramina are patent. L1-L2: Canal and foramina are patent. L2-L3: Canal and foramina are patent L3-L4: Mild canal and foramina narrowing L4-L5: Mild canal and foramina narrowing. L5-S1: Mild canal and foramina narrowing. Sacrum and iliac wings: Degenerative changes at the SI joints. IMPRESSION: Limitations secondary to body habitus. Limited evaluation for the presence of herniated disc. No acute bony abnormality in the lumbar region. Narrowing of the canal and foramina in the lower lumbar region. Recommend further evaluation with nonemergent MR imaging as indicated. Incomplete visualized uterus which appears right of midline and 4.5 cm density left hemipelvis which may be physiologic given the patient's age and gender. Correlate clinically. Anatomic Lumbar Variant: ACTIONABLE RESULT: FOLLOW-UP Acuity: Actionable Findings: Neurological System-SPINE Routing Code: NI_2 Recommendation: MRI LUMBAR SPINE WO IVCON Time Frame: At the discretion of the clinical team. COMMUNICATION: Results will be communicated with the ordering provider via [employer] staff message or phone message by [facility] Services within 2 business days of report finalization. --END OF FINDING-- Portable Track Crew Chief: DEB Transcribe Date/Time: Dec 25 2024 2:31P Dictated by : FEMI DAVIDSON MD This examination was interpreted and the report reviewed and electronically signed by: FEMI DAVIDSON MD on Dec 25 2024 2:48PM EST [id number] ACTIONABLE Invalid Interpretation Code [facility] ED NOTEon 12-25-2024 ED NOTE HNO ID: [id number] Author: OVIDIO SCOTT RN Service: ? Author Type: Registered Nurse Type: ED Notes Filed: 12/30/2024 10:46 Note Text: Chart accessed on 12-30-24 for chart audit pi [facility] ED NOTE HNO ID: [id number] Author: TRAVIS KELLY RN Service: ? Author Type: Registered Nurse Type: ED Notes Filed: 12/25/2024 17:41 Note Text: D/c instructions reviewed with pt who verbalized understanding. Pt's vss and left ED in wheelchair with family [facility] ED NOTE HNO ID: [id number] Author: DERRICK LUNA RN Service: ? Author Type: Registered Nurse Type: ED Notes Filed: 12/25/2024 16:20 Note Text: Assisted pt to bathroom. Pt states still in pain. [facility] ED NOTE HNO ID: [id number] Author: TRAVIS KELLY RN Service: ? Author Type: Registered Nurse Type: ED Notes Filed: 12/25/2024 12:36 Note Text: Pt comes to ED c/o bilateral leg pain for 4 days. Pt states "I think my sciatica is acting up again". Pt states pain occurs when she tries to stand and walk. Pain starts at bottom of buttocks and radiates down to the back of he knee. She is AANDox3, vss. Last dose of tylenol was at 1030 today. She took atarax, lyrica, congentin and robaxin at 1045. Will continue to monitor. [facility] ED PROV NOTEon 12-25-2024 ED PROV NOTE HNO ID: [id number] Author: ANDERSON BEEBE MD Service: Emergency Medicine Author Type: Physician Type: ED Provider Notes Filed: 12/26/2024 06:47 Note Text: ED Provider Note Patient Name: Mitchell Brooks : 1975 SERVICE DATE: 12/25/24 History Patient presents with: Leg Pain This is a morbidly obese female, who previously follows up with pain management, and orthopedic back surgery, for spinal cervical fusion, as well as chronic low back pain, who presents to the emergency department via EMS, for concerns over low back pain and sciatica. Patient states for the past 30 days her pain has been gradually worsening, somewhat patient is unable to stand or walk. Patient's pain is in both of her lower backs, extends down her posterior thighs to her knees. Patient has no abdominal pain no nausea no vomiting. There is no incontinence of urine or stool and there is no fevers. Patient denies any recent trauma. Patient's been taking Tylenol last dose 1030, with Celebrex, Lyrica, and Robaxin without any improvement in her symptoms. Patient is following outpatient pain management in [place] however does not have an appointment for the few upcoming weeks Back Pain Location: Lumbar spine and sacro-iliac joint Quality: Shooting and stiffness Radiates to: R posterior upper leg and L posterior upper leg Pain severity: Mild Onset quality: Gradual Duration: 4 days Timing: Intermittent Progression: Worsening Chronicity: Recurrent Context: not recent injury Worsened by: Movement Ineffective treatments: Muscle relaxants, OTC medications and NSAIDs Associated symptoms: leg pain and paresthesias Associated symptoms: no abdominal pain, no bladder incontinence, no bowel incontinence, no dysuria and no weakness Risk factors: lack of exercise and obesity Risk factors: no hx of cancer, not , no recent surgery and no steroid use PAST MEDICAL HISTORY Diagnosis Date RAFIA (acute kidney injury) 07/20/2013 Baseline Cr 0.58 07/20 Cr 1.6 Possibly 2/2 sepsis (organ damage) as pt received 8L IVFs Making urine appropriately Plan: IVFs Anxiety Asthma (HCC) Cervical spondylosis Chronic pain Debility HTN (hypertension) Hypothyroid Irritable bowel syndrome Lymphedema Morbid obesity (HCC) Necrotizing fasciitis (HCC) 08/14/2012 thigh wound Septic shock 07/20/2013 On Dopamine, vasopressine and NE upon admission Given solumedrol 125mg IV at OSH Given 8L at OSH Started on meropenem, ceftriaxone, vanc and clindamycin at OSH (one dose of each) ? Necrotizing fascitis? Plan: Continue pressors Bolus NS 500cc once Hydrocortisone 100mg q8hrs Start vanc, clinda and zosyn Gen Surgery consulted --> to the OR for debridement. PAST SURGICAL HISTORY Procedure Laterality Date PAST SURGICAL HISTORY OF c section x 2 PAST SURGICAL HISTORY OF 2013 tracheostomy PAST SURGICAL HISTORY OF Right 2013 debridement of thigh wound TONSILLECTOMY HX TUBAL LIGATION, FAMILY HISTORY Problem Relation Age of Onset Diabetes Father Heart Paternal Grandmother Heart Paternal Grandfather other (liver cancer [Other]) Other mother Social History Tobacco Use Smoking status: Every Day Current packs/day: 0.50 Average packs/day: 0.5 packs/day for 25.0 years (12.5 ttl pk-yrs) Types: Cigarettes Smokeless tobacco: Never Tobacco comments: down to maybe 6 cigarettes through the day Vaping Use Vaping status: Never Used Substance and Sexual Activity Alcohol use: No Drug use: No Sexual activity: Yes control/protection: Tubal Ligation ALLERGIES Allergen Reactions Lactose Diarrhea Aleve [Naproxen Sod* Itching itch diffuse Ciprofloxacin Hives Codeine Itching Ibuprofen Rash Morphine Anaphylaxis SOB, throat swelled shut Vicodin [Hydrocodon* Anaphylaxis 06/19/2015 taking percocet without any side effects reported Zanaflex [Tizanidin* Rash Review of Systems Gastrointestinal: Negative for abdominal pain, bowel incontinence, nausea and vomiting. Genitourinary: Negative for bladder incontinence and dysuria. Musculoskeletal: Positive for back pain. Neurological: Positive for paresthesias. Negative for weakness. All other systems reviewed and are negative. Physical Exam Vitals [12/25/24 1223] BP Pulse Temp Temp src Resp SpO2 Weight Height 114/60 66 36.8 ?C (98.2 ?F) Temporal 20 100 % (!) 151.5 kg (334 lb) -- Physical Exam Vitals and nursing note reviewed. Constitutional: General: She is not in acute distress. Appearance: Normal appearance. She is not ill-appearing or toxic-appearing. HENT: Head: Normocephalic and atraumatic. Eyes: General: Right eye: No discharge. Left eye: No discharge. Pulmonary: Effort: No respiratory distress. Abdominal: General: There is no distension. Tenderness: There is no abdominal tenderness. There is no right CVA tenderness or left CVA tenderness. Comments: Morbidly obese (more content not included)... Normal [facility] Cardiology Visit Reporton Cardiology Visit Report [facility] [address] [place] [address] OFFICE VISIT Date of Service: 05/16/24 MR#: [id number] Acct: [id number] Name: MITCHELL BROOKS Rep #: [id number] : 1975 Provider: Dr. Yung Thapa MD Age/Sex: 49/F [place] [facility] Status: Signed HPI HPI History of Present Illness Details: This patient is here for follow-up visit. According to her, she gets sharp stabbing chest pain whenever she is emotionally upset. This lasts for a second or 2 only. According to her, lately she has been very stressed. Her is in [facility] and her nephew got out of [facility] only today. Occasionally feels lightheaded and dizzy. No syncope or presyncope. Intake Vital Signs 11/23/23 14:27 05/16/24 08:27 Height 5 ft 2 in 5 ft 2 in Weight: 322 lb BMI 58.8 BP 87/61 L 109/72 Blood Pressure Location Lt brachial Lt radial Position Sitting Sitting Respiration 18 18 Pulse 61 72 Pulse Source Monitor Palpation Pulse Oximetry (%) 95 Oxygen Delivery Method room air Intake Visit Reasons: 6 M Flyer Maker Required: No Accompanied by: Nephew Is patient in pain?: No Allergies naproxen (From Aleve) Allergy (Intermediate, Verified 05/16/24 14:44) Itching tizanidine (From Zanaflex) Allergy (Intermediate, Verified 05/16/24 14:44) Rash ciprofloxacin HCl (From Cipro) Allergy (Verified 05/16/24 14:44) Shortness of breath codeine Allergy (Verified 05/16/24 14:44) Shortness of breath hydrocodone Allergy (Verified 05/16/24 14:44) Shortness of breath ibuprofen (From Advil) Allergy (Verified 05/16/24 14:44) Rash morphine Allergy (Verified 05/16/24 14:44) Angioedema tizanidine HCl (From Zanaflex) Allergy (Verified 05/16/24 14:44) Rash acetaminophen (From Vicodin) Adverse Reaction (Severe, Verified 05/16/24 14:44) Anaphylaxis celecoxib (From Celebrex) Adverse Reaction (Intermediate, Verified 05/16/24 14:44) Swelling cyproheptadine Adverse Reaction (Intermediate, Verified 05/16/24 14:44) Hives Penicillins Adverse Reaction (Verified 05/16/24 14:44) Itching Medications ???Medication ???Instructions ???Recorded ???Confirmed ???Type levothyroxine 50 mcg tablet 50 mcg PO DAILY 05/02/15 05/16/24 History (Unithroid) albuterol sulfate 90 mcg/actuation 2 puff inhalation Q4H PRN PRN 05/06/21 05/16/24 History aerosol inhaler ASTHMA bismuth subsalicylate 262 mg 2 tab PO Q30M PRN Diarrhea 05/06/21 05/16/24 History chewable tablet (Pepto-Bismol) diclofenac sodium 50 mg 50 mg PO BID 05/06/21 05/16/24 History tablet,delayed release fluticasone propionate 110 2 inh inhalation BID 05/06/21 05/16/24 History mcg/actuation HFA aerosol inhaler (Flovent HFA) glucosamine 750 hc-njinku-olo 2-C 1 tab PO DAILY 05/06/21 05/16/24 History 30 mg-D3 1,000 unit-kathrin 1 mg tablet (Glucosamine-Chondro itin-MSM + vitD) montelukast 10 mg tablet 10 mg PO DAILY 05/06/21 05/16/24 History multivitamin 1 tab PO DAILY 05/06/21 05/16/24 History pantoprazole 40 mg tablet,delayed 40 mg PO BID 05/06/21 05/16/24 History release trolamine salicylate 10 % topical 1 applic topical BID PRN Skin 05/06/21 05/16/24 History cream Cleansing albuterol sulfate 2.5 mg/3 mL 2.5 mg inhalation Q4H PRN 04/26/23 05/16/24 History (0.083 %) solution for nebulization benztropine 0.5 mg tablet 0.5 mg PO BID 04/26/23 05/16/24 History brexpiprazole 0.25 mg tablet 0.25 mg PO DAILY 04/26/23 05/16/24 History (Rexulti) cetirizine 10 mg capsule (All Day 10 mg PO DAILY PRN 04/26/23 05/16/24 History Allergy (cetirizine)) hydroxyzine HCl 25 mg tablet 25 mg PO 4X/DAY PRN 04/26/23 05/16/24 History methocarbamol 500 mg tablet 500 mg PO Q6H PRN 04/26/23 05/16/24 History oxybutynin chloride 5 mg 5 mg PO DAILY 04/26/23 05/16/24 History tablet,extended release 24 hr (Ditropan XL) quetiapine 50 mg tablet 50 mg PO QHS 04/26/23 05/16/24 History gabapentin 600 mg tablet 600 mg PO Q6H 05/12/23 05/16/24 History metoprolol tartrate 25 mg tablet 25 mg PO BID #180 tabs 06/01/23 05/16/24 Rx colestipol 1 gram tablet 1 g PO BID #180 tabs 06/19/23 05/16/24 Rx dicyclomine 10 mg capsule 10 mg PO TID PRN abdominal pain 09/04/23 05/16/24 Rx #14 caps famotidine 40 mg tablet 40 mg PO DAILY #30 tabs 09/11/23 05/16/24 Rx hydrochlorothiazide 12.5 mg tablet 12.5 mg PO DAILY 12/28/23 05/16/24 History clopidogrel 75 mg tablet 75 mg PO DAILY #90 TABLETS 04/03/24 05/16/24 Rx cetirizine 10 mg tablet 10 mg PO QDAY 05/16/24 05/16/24 History Ejection fraction %: 62 Have you fallen in the past year?: Yes (trip/balance; hamstring tears bilat; April 05) [facility] Medical History RAFIA (acute kidney injury) Anemia Anxiety Arthritis Asthma Back pain Bilateral mark (more content not included)... Normal [facility] ED NOTEon 04-05-2024 ED NOTE HNO ID: [id number] Author: VIKTORIA DAY RN Service: ? Author Type: Registered Nurse Type: ED Notes Filed: 04/06/2024 12:23 Note Text: Emergency Services: ED Call Back Questionnaire SERVICE DATE: 04/05/2024 Are you feeling better? Yes Any questions about discharge instructions and follow-up care? No Were you able to make a follow up appointment? No, referred to appointment hotline Do you have any further questions? No Is there anything that we could have done differently to improve your ED visit? No SIGNATURE: Viktoria Day RN PATIENT NAME: Mitchell Brooks DATE: April 06, 2024 TIME: 12:23 PM [facility] ED NOTE HNO ID: [id number] Author: PATRICA ORDOÑEZ RN Service: Emergency Medicine Author Type: Registered Nurse Type: ED Notes Filed: 04/05/2024 20:31 Note Text: Pt up to bathroom, walker used, gait steady, able to get self back to bed afterwards [facility] ED NOTE HNO ID: [id number] Author: PATRICA ORDOÑEZ RN Service: Emergency Medicine Author Type: Registered Nurse Type: ED Notes Filed: 04/05/2024 19:40 Note Text: Patient informed: the name of medication, why we are giving it, possible side effects, what they may expect to feel, and was offered a chance to ask questions, prior to the administration of percocet and gabapentin [facility] ED NOTE HNO ID: [id number] Author: ELTON TEAGUE RN Service: Emergency Medicine Author Type: Registered Nurse Type: ED Notes Filed: 04/05/2024 19:02 Note Text: Report to Patrica FERNÁNDEZ [facility] ED NOTE HNO ID: [id number] Author: ELTON TEAGUE RN Service: Emergency Medicine Author Type: Registered Nurse Type: ED Notes Filed: 04/05/2024 16:55 Note Text: PT BROUGHT BY EMS FOR FALL PT DENIES HITTING HEAD OR PASSING OUT STATES SHE FELL STRAIGHT DOWN ON TO HER KNEES. PT IS ALERT AND ORIENTED AMBULATES FROM EMS COT TO BED. [facility] ED PROV NOTEon 04-05-2024 ED PROV NOTE HNO ID: [id number] Author: MELODIE BLANCAS MD Service: Emergency Medicine Author Type: Physician Type: ED Provider Notes Filed: 04/05/2024 21:06 Note Text: ED Provider Note Patient Name: Mitchell Brooks : 1975 SERVICE DATE: 04/05/24 History Patient presents with: Fall Leg Injury The patient is a 49-year-old female presenting today with complaint of difficulty walking. Patient states that typically patient will walk her self with walker. Usually she is able to get in and out of her car without a problem. States that she was out at a grocery store today and tried to get into her car when she had sudden pain in her leg. Caused her to fall to the ground and she landed on her knees. EMS had to come pick her up off of the driveway. They will to hold the patient into a car. She finished her errands. She tried to get out of the car get home was unable to do so operatively was not comfortable climbing the stairs that she felt her legs would give out on her and so she called EMS and presented here. States having some lower back pain since the fall. Denies any loss of consciousness. States she never hit her head or neck. Denies any abdominal pain or chest pain. PAST MEDICAL HISTORY 07/20/2013: RAFIA (acute kidney injury) ([facility]) Comment: Baseline Cr 0.58 07/20 Cr 1.6 Possibly 2/2 sepsis (organ damage) as pt received 8L IVFs Making urine appropriately Plan: IVFs No date: Anxiety No date: Asthma No date: Cervical spondylosis No date: Chronic pain No date: Debility No date: HTN (hypertension) No date: Hypothyroid No date: Irritable bowel syndrome No date: Lymphedema No date: Morbid obesity ([facility]) 08/14/2012: Necrotizing fasciitis ([facility]) Comment: thigh wound 07/20/2013: Septic shock ([facility]) Comment: On Dopamine, vasopressine and NE upon admission Given solumedrol 125mg IV at OSH Given 8L at OSH Started on meropenem, ceftriaxone, vanc and clindamycin at OSH (one dose of each) ? Necrotizing fascitis? Plan: Continue pressors Bolus NS 500cc once Hydrocortisone 100mg q8hrs Start vanc, clinda and zosyn Gen Surgery consulted --> to the OR for debridement. PAST SURGICAL HISTORY No date: PAST SURGICAL HISTORY OF Comment: c section x 2 2012: PAST SURGICAL HISTORY OF Comment: tracheostomy 2013: PAST SURGICAL HISTORY OF; Right Comment: debridement of thigh wound No date: TONSILLECTOMY HX No date: TUBAL LIGATION, FAMILY HISTORY Problem Relation Age of Onset Diabetes Father Heart Paternal Grandmother Heart Paternal Grandfather other (liver cancer [Other]) Other mother Social History Tobacco Use Smoking status: Every Day Current packs/day: 0.50 Average packs/day: 0.5 packs/day for 25.0 years (12.5 ttl pk-yrs) Types: Cigarettes Smokeless tobacco: Never Tobacco comments: down to maybe 6 cigarettes through the day Vaping Use Vaping status: Never Used Substance and Sexual Activity Alcohol use: No Drug use: No Sexual activity: Yes control/protection: Tubal Ligation ALLERGIES Allergen Reactions Lactose Diarrhea Aleve [Naproxen Sod* Itching itch diffuse Ciprofloxacin Hives Codeine Itching Ibuprofen Rash Morphine Anaphylaxis SOB, throat swelled shut Vicodin [Hydrocodon* Anaphylaxis 06/19/2015 taking percocet without any side effects reported Zanaflex [Tizanidin* Rash Review of Systems Constitutional: Negative for activity change, appetite change, chills, fatigue and fever. HENT: Negative for congestion, ear pain, rhinorrhea and sore throat. Respiratory: Negative for cough and shortness of breath. Cardiovascular: Negative for chest pain and palpitations. Gastrointestinal: Negative for abdominal pain, diarrhea, nausea and vomiting. Genitourinary: Negative for dysuria, frequency and urgency. Musculoskeletal: Positive for arthralgias, back pain and gait problem. Negative for myalgias. Skin: Negative for rash and wound. Neurological: Negative for dizziness and headaches. Psychiatric/Behavior al: Negative for self-injury and suicidal ideas. All other systems reviewed and are negative. Physical Exam Vitals BP Pulse Temp Temp src Resp SpO2 Weight Height 04/05/24 1653 04/05/24 1653 04/05/24 1649 04/05/24 1649 04/05/24 1653 04/05/24 1653 -- -- 108/68 (!) 100 37.4 ?C (99.4 ?F) Temporal 19 (!) 94 % Physical Exam Vitals and nursing note reviewed. Constitutional: General: She is not in acute distress. Appearance: She is well-developed. HENT: Head: Normocephalic and atraumatic. Nose: Nose normal. Mouth/Throat: Mouth: Mucous membranes are moist. Eyes: Pupils: Pupils are equal, round, and reactive to light. Cardiovascular: Rate and Rhythm: Normal rate and regular rhythm. Heart sounds: Normal heart sounds. Pulmonary: Effort: Pulmonary effort is normal. No respiratory distress. Breath sounds: Normal breath sounds. Abdominal: General: Bowel sounds are normal. There is no (more content not included)... Normal [facility] XR HIP 3V PELV+ AP/LAT RTon 04-05-2024 XR HIP 3V PELV+ AP/LAT RT * * *Final Report* * * DATE OF EXAM: Apr 05 2024 7:55PM LDX 5352 - XR HIP 3V PELV+ AP/LAT RT / PROCEDURE REASON: Other * * * * Physician Interpretation * * * * EXAMINATION: XR HIP 3V PELV+ AP/LAT RT HISTORY: pt states she fell onto knees, Other . TECHNIQUE: XR HIP 3V PELV+ AP/LAT RT Laterality: RIGHT Number of different views (projections): 3 M: XB_1 COMPARISON: None RESULT/ IMPRESSION: No acute fracture or dislocation. Mild axial narrowing of hip joints bilaterally. Sacroiliac joints are maintained. Mild osteitis pubis. Degenerative changes of lower lumbar spine. No other significant abnormality. Portable Track Crew Chief: DEB Transcribe Date/Time: Apr 05 2024 8:15P Dictated by : ZAKI BALDERAS MD This examination was interpreted and the report reviewed and electronically signed by: ZAKI BALDERAS MD on Apr 05 2024 8:16PM EST [id number] CN Normal [facility] XR KNEE 2V AP/LAT LTon 04-05 XR KNEE 2V AP/LAT LT * * *Final Report* * * DATE OF EXAM: Apr 05 2024 7:55PM LDX 5206 - XR KNEE 2V AP/LAT LT / PROCEDURE REASON: Trauma * * * * Physician Interpretation * * * * EXAMINATION: XR KNEE 2V AP/LAT LT, XR KNEE 2V AP/LAT RT HISTORY: pt states she fell onto knees, Trauma. TECHNIQUE: XR KNEE 2V AP/LAT LT, XR KNEE 2V AP/LAT RT Laterality: RIGHT Number of different views (projections): 3 M: XB_1 COMPARISON: None. 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 No bone destruction or mineralized soft tissue mass to suggest malignant degeneration. Moderately advanced bilateral knee osteoarthritis with medial joint compartment narrowing and tricompartmental osteophytosis. No other significant abnormality. Portable Track Crew Chief: [facility] Transcribe Date/Time: Apr 05 2024 8:18P Dictated by : ZAKI BALDERAS MD This examination was interpreted and the report reviewed and electronically signed by: ZAKI BALDERAS MD on Apr 05 2024 8:22PM EST [id number] CN Normal [facility] XR KNEE 2V AP/LAT RTon 04-05 XR KNEE 2V AP/LAT RT * * *Final Report* * * DATE OF EXAM: Apr 05 2024 7:55PM LDX 5207 - XR KNEE 2V AP/LAT RT / PROCEDURE REASON: Trauma * * * * Physician Interpretation * * * * EXAMINATION: XR KNEE 2V AP/LAT LT, XR KNEE 2V AP/LAT RT HISTORY: pt states she fell onto knees, Trauma. TECHNIQUE: XR KNEE 2V AP/LAT LT, XR KNEE 2V AP/LAT RT Laterality: RIGHT Number of different views (projections): 3 M: XB_1 COMPARISON: None. 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 No bone destruction or mineralized soft tissue mass to suggest malignant degeneration. Moderately advanced bilateral knee osteoarthritis with medial joint compartment narrowing and tricompartmental osteophytosis. No other significant abnormality. Portable Track Crew Chief: [facility] Transcribe Date/Time: Apr 05 2024 8:18P Dictated by : ZAKI BALDERAS MD This examination was interpreted and the report reviewed and electronically signed by: ZAKI BALDERAS MD on Apr 05 2024 8:22PM EST [id number] CN Normal [facility] XR LUMBAR 3V AP/LAT/L5-S1on 04-05-2024 XR LUMBAR 3V AP/LAT/L5-S1 * * *Final Report* * * DATE OF EXAM: Apr 05 2024 7:55PM LDX 5228 - XR LUMBAR 3V AP/LAT/L5-S1 / PROCEDURE REASON: Back pain * * * * Physician Interpretation * * * * EXAMINATION: XR LUMBAR 3V AP/LAT/L5-S1 HISTORY: pt states she fell onto knees, Back pain. TECHNIQUE: XR LUMBAR 3V AP/LAT/L5-S1 Laterality: RIGHT Number of different views (projections): 3 M: XB_1 COMPARISON: None RESULT/ IMPRESSION: Counting reference: Lumbosacral junction. For the purposes of this report, L4-5 is considered the level of the iliac crest and assume there are 5 lumbar-type vertebrae. Anatomic variant: None. Mild degenerative changes with disc space narrowing at L5-S1. Small endplate osteophytes at L3-L5. No compression fracture or subluxation. L5-S1 facet degenerative changes. No other significant abnormality. Portable Track Crew Chief: [facility] Transcribe Date/Time: Apr 05 2024 8:26P Dictated by : ZAKI BALDERAS MD This examination was interpreted and the report reviewed and electronically signed by: ZAKI BALDERAS MD on Apr 05 2024 8:26PM EST [id number] CN [facility] 03-25-2024 36 Name of caller: Mitchell Brooks Contact phone number: [phone] Relationship to Patient: patient Provider: Joyce Sierra Practice: Gastroenterology Chief Complaint/Reason for Call: Pt has a new patient apt today, 03.25.2024 at 11:20AM and stated she is not feeling good and would like to cancel her apt. Pt stated she will call back when she is feeling better. Please advise. Thank you. Best time of day caller can be reached: Any Patient advised that office/PCP has 24-48 business hours to return their call: Yes [facility] 36on 10-09-2023 36 Patient is scheduled for an OV in December in [place] with Joyce Sierra [facility] 36 Name of caller: Mitchell Contact phone number: [phone] Relationship to Patient: patient Provider: Iris Practice: Gastro Chief Complaint/Reason for Call: Pt calling to check status of new patient referral. [facility] should have sent over referral last week. Unable to see referral in patient's chart at time of all. Please advise, thank you. Best time of day caller can be reached: AM Patient advised that office/PCP has 24-48 business hours to return their call: Yes [facility] CNPNon 01-26-2023 CNPN Telephone (HEMAVN) MILLERMITCHELL MENDOZA ([id number]) 1975 F T Date Time Provider Department 01/26/23 NABILA WATSON During your visit today, we recorded the following information about you: Criss Landers 01/26/2023 3:15 PM Signed This patient was seen by Myke Ross in the ED around . Patient lives out in [place] wanting a referral placed and faxed over to [facility] Fax# [phone] Please call her if there is any other questions Thanks! Allergies As of Date: 01/26/2023 Noted Allergy Reaction LACTOSE 01/12/2023 6 - Diarrhea ALEVE (NAPROXEN SODIUM) 05/13/2015 9 - Itching Comments: itch diffuse CIPROFLOXACIN 01/17/2013 4 - Hives CODEINE 01/17/2013 9 - Itching IBUPROFEN 01/17/2013 2 - Rash MORPHINE 01/17/2013 10 - Anaphylaxis Comments: SOB, throat swelled shut VICODIN (HYDROCODONE-ACETAMI NOPHE*01/17/2013 10 - Anaphylaxis Comments: 06/19/2015 taking percocet without any side effects reported ZANAFLEX (TIZANIDINE HCL) 06/22/2015 2 - Rash Date Reviewed: 01/14/2023 Reviewed by: Nelly Pool, RN - Fully Assessed Reason for Visit: Patient Question [9250] Cmt: Referral Prescriptions as of 01/26/2023 - famotidine (PEPCID) 20 mg tablet Take 1 tablet by mouth twice daily as needed. - methocarbamol (ROBAXIN) 500 mg tablet Take 1 tablet by mouth three times daily as needed. - metoprolol tartrate, short acting, 37.5 mg tab Take 1 tablet by mouth every 12 hours. - aspirin 325 mg tablet Take 1 tablet by mouth once daily. - aspirin 325 mg tablet Take 1 tablet by mouth once daily. - albuterol (PROVENTIL) 2.5 mg /3 mL (0.083 %) nebulizer solution Use 2.5 mg via nebulizer every 4 hours as needed for wheezing/shortness of breath. - benztropine (COGENTIN) 0.5 mg tablet Take 0.5 mg by mouth twice daily. - carBAMazepine (TEGRETOL) 200 mg tablet Take 100 mg by mouth once daily. At noon - carBAMazepine (TEGRETOL) 200 mg tablet Take 200 mg by mouth daily at bedtime. - colestipol (COLESTID) 1 gram tablet Take 1 g by mouth twice daily. - hydrOXYzine HCl (ATARAX) 25 mg tablet Take 25 mg by mouth four times daily as needed. - pantoprazole DR (PROTONIX) 40 mg tablet Take 40 mg by mouth twice daily. - brexpiprazole (REXULTI) 0.25 mg tablet Take 0.25 mg by mouth once daily. - acetaminophen (TYLENOL) 325 mg tablet Take 2 tablets by mouth every 6 hours as needed for Pain or Fever. - albuterol HFA (PROVENTIL HFA, VENTOLIN HFA) 90 mcg/actuation inhaler Inhale 2 Puffs as instructed every 6 hours as needed. - gabapentin (NEURONTIN) 300 mg capsule Take 1 capsule by mouth daily at bedtime. - Levothyroxine 50 mcg cap Take 1 capsule by mouth once daily. Problem List As Of Date 01/26/2023 Noted Resolved DDD (degenerative disc disease), lumbar [M51.36]05/10/2013 Low back pain [M54.50] 05/10/2013 Class 3 severe obesity with serious comorbidity*05/10/20 13 Myofascial pain [M79.18] 05/10/2013 07/20/2013 Morbid obesity with BMI of 70 and over, adult (*05/10/2013 01/10/2023 Anemia [D64.9] 05/29/2013 Tobacco use disorder [F17.200] 05/29/2013 Septic shock (HCC) [A41.9, R65.21] 07/20/2013 01/10/2023 Abscess and cellulitis [L03.90, L02.91] 07/20/2013 RAFIA (acute kidney injury) (HCC) [N17.9] 07/20/2013 01/10/2023 Hypothyroidism [E03.9] 07/20/2013 SUMMARY [V999.95] 07/20/2013 HTN (hypertension) [I10] 07/20/2013 Asthma with COPD with exacerbation (HCC) [J44.1*06/11/2015 Hilar adenopathy [R59.0] 06/11/2015 Cervical spondylosis [M47.812] Asthma [J45.909] Cervical stenosis of spine [M48.02] 07/18/2016 Cervical disc disorder at C5-C6 level with myel*07/19/2016 Sepsis (HCC) [A41.9] 01/10/2023 Bipolar depression (HCC) [F31.9] 01/10/2023 Cellulitis of left lower extremity [L03.116] 01/10/2023 Fever [R50.9] 01/10/2023 Bandemia [D72.825] 01/10/2023 Atrial fibrillation (HCC) [I48.91] 01/12/2023 Encounter Status:Closed by CRISS LANDERS on 01/26/23 Normal [facility] CNDSon 01-14-2023 CNDS HNO ID: [id number] Author: Herb Chavarria MD Service: Hospital Medicine Author Type: Physician Type: Discharge Summary Filed: 01/14/2023 1:54 PM Note Text: DISCHARGE SUMMARY PATIENT NAME: Mitchell Brooks ADMISSION DATE: 01/10/2023 DISCHARGE DATE: 01/14/2023 ATTENDING PHYSICIAN: Herb Chavarria MD Code Status: Not on file PCP: Nabila Watson MD Highest Readmission Risk Score: 27 The 30 day readmissions risk score is derived from an internally validated risk model which evaluates patient level characteristics, utilization history, medication orders and lab results up until the day of discharge. Patients with a score of 40 or above are considered highest risk for readmission. Specific patient level drivers will be listed at the bottom of the summary. TRANSITIONS OF CARE CRITICAL ISSUES: RITTER MEDICATION CHANGES: Metoprolol 37.5 bid ASA 325 mg a day Cefadroxil bid for 5 more days Dc oxybutynin and Singulair for now Use famotidine only as needed. Follow up with cardiology for possible cardioversion. LAB MONITORING NEEDED: Not applicable IMAGING FOLLOW-UP: Not applicable LABS AND PROCEDURES PENDING AT DISCHARGE: No pending results. FOLLOW UP: See follow up appointment listed below. REASON FOR HOSPITALIZATION: sepsis PRINCIPAL DIAGNOSIS: Sepsis Cellulitis lower extremities Atrial fibrillation AC newly Bipolar disorder Obesity. polypharmacy SECONDARY DIAGNOSIS: Principal Problem: Sepsis (HCC) POA: Yes Active Problems: Cellulitis of left lower extremity POA: Yes Atrial fibrillation (HCC) POA: No Hypothyroidism POA: Yes Class 3 severe obesity with serious comorbidity and body mass index (BMI) of 60.0 to 69.9 in adult (HCC) POA: Yes Tobacco use disorder POA: Yes HTN (hypertension) POA: Yes Asthma POA: Yes Bipolar depression (HCC) POA: Yes Fever POA: Yes Bandemia POA: Yes Resolved Problems: * No resolved hospital problems. * HOSPITAL COURSE: Mitchell Brooks is a 47 year old female with past medical history of obesity, necrotizing fascitis (2012), septic shock, IBS, bipolar depression, HTN, chronic pain, asthma, copd, lymphedema, hypothyroidism, with chills and weakness, diagnosed with sepsis due to cellulitis of left lower extremity and initially was placed on IV Zosyn and vancomycin. Patient improved significantly and ID switched antibiotics to cefazolin on 01/11. During her hospital stay patient developed A-fib and was started on metoprolol. Echocardiogram with normal EF. We tried to start on oral AC but not possible as interaction with carbamazepine. We started on ASA 325 mg a day and she is to follow with psychiatry to be able to transition to a different medication rather than carbamazepine to be able to use nursing home AC in this patient. Plan Metoprolol 37.5 bid ASA 325 mg a day Cefadroxil bid for 5 more days Dc oxybutynin and Singulair for now Use famotidine only as needed. Follow up with cardiology for possible cardioversion. OPERATIONS/PROCEDURE DURING THIS HOSPITALIZATION: * No surgery found * No other procedures CONSULTS DURING HOSPITALIZATION: Treatment Team: Attending Provider: Herb Chavarria MD Attending: Elmer Larry MD Orders Placed This Encounter Smoking Cessation Education MU FOLLOW UP PROVIDER FOR SUMMARY OF CARE - MU MEASURE PATIENT CONDITION AT DISCHARGE: Stable ADVANCE CARE PLANNING DISCUSSION (if applicable): N/A DISCHARGE DISPOSITION: Home with Self Care Discharge Physical Exam: VITAL SIGNS: BP 95/61 Pulse 92 Temp 36.9 ?C (98.4 ?F) (Oral) Resp 18 Ht 157.5 cm (5' 2") Wt (!) 159.9 kg (352 lb 8.3 oz) LMP 11/14/2022 (Approximate) SpO2 94% BMI 64.48 kg/m? Awake, alert, mucosa moist. Lungs clear to auscultation no crackles or wheezes, cardiac sounds arrhythmic, no tachycardia. Abdomen soft non tender or distended legs with +/+ pitting edema. Erythema improved WOUND/SURGICAL SITE CARE: None SUPPLIES OR EQUIPMENT: None DIET: Low carb diet: 3-5 carbs/meal, <200 mg cholesterol, low saturated fat ACTIVITY AND EXERCISE: Resume pre-hospital activity ADDITIONAL INFORMATION: Follow up with cardiology in [place] over next 3-4 weeks. Psychiatry phone number to call for follow up [phone] over next 2 weeks FOLLOW UP APPOINTMENTS: Future Appointments Date Time Provider Department Center 02/23/2023 3:30 PM Myke Ross MD [facility] 03/15/2023 8:20 AM Ganesh Archer MD [facility] ALLERGIES Allergen Reactions Lactose Diarrhea Aleve [Naproxen Sod* Itching itch diffuse Ciprofloxacin Hives Codeine Itching Ibuprofen Rash Morphine Anaphylaxis SOB, throat swelled shut Vicodin [Hydrocodon* Anaphylaxis 06/19/2015 taking percocet without any side effects reported Zanaflex [Tizanidin* Rash DISCHARGE MEDICATION: Current Discharge Medication List START taking these medications apixaban (ELIQUIS) 5 mg Take 5 mg by mouth twice daily. Qty: (more content not included)... [facility] NURSING PROGon 01-14-2023 NURSING PROG HNO ID: [id number] Author: Nury Gonzalez RN Service: Nursing Author Type: Registered Nurse Type: Nursing Progress Note Filed: 01/14/2023 4:33 PM Note Text: Other: Pt left for discharge via wheelchair in stable condition. Pt returned all belongings, wearing bilateral hearing aids. Pt given and explained discharge instructions. All pt questions answered. [facility] Basic metabolic 2000 panelon 01-13-2023 Anion gap [Moles/Vol] 10 mmol/L Normal 9-18 [facility] Comment on above: Order Comment: Speci men Type: BLOOD SPECIMENOrdering Facility: [facility] Address: [address] [place] [id number] Performed By: #### 3 016-3, 27066-8 ####[facility] LABORATORYCLIA [id number] [place] [address] [place] Calcium [Mass/Vol] 8.7 mg/dL Normal 8.5-10.2 [facility] Comment on above: Order Comment: Speci men Type: BLOOD SPECIMENOrdering Facility: [facility] Address: [address] [place] [address] Performed By: #### 3 016-3, 38237-0 ####[facility] LABORATORYCLIA [id number] [place] [address] [place] Chloride [Moles/Vol] 105 mmol/L Normal 97-105 [facility] Comment on above: Order Comment: Speci men Type: BLOOD SPECIMENOrdering Facility: [facility] Address: [address] [place] [address] Performed By: #### 3 3, ####[facility] [id number] [place] [address] [place] CO2 [Moles/Vol] 27 mmol/L Normal 22-30 [facility] Comment on above: Order Comment: Speci men Type: BLOOD SPECIMENOrdering Facility: [facility] Address: [address] [place] [address] Performed By: #### 3 016-3, ####[facility] LABORATORYIA [id number] [place] [address] [place] Creatinine [Mass/Vol] 0.59 mg/dL Normal 0.58-0.96 [facility] Comment on above: Order Comment: Speci men Type: BLOOD SPECIMENOrdering Facility: [facility] Address: [address] [place] [address] Performed By: #### 3 016-3, 91053-2 ####[facility] LABORATORYIA [id number] [place] [address] [place] ESTIMATED GLOMERULAR FILTRATION RATE 111 mL/min/1.73m??? Normal >=60 [facility] Comment on above: Order Comment: Elias do Type: BLOOD SPECIMENOrdering Facility: [facility] Address: [place] [id number] Result Comment: Carmen mated Glomerular Filtration Rate (eGFR) is calculated using the 2020 CKD-EPI creatinine equation. This equation utilizes serum creatinine, sex, and age as parameters. The creatinine assay has traceable calibration to isotope dilution-mass spectrometry. Refer to KDIGO guidelines for clinical interpretation. In patients with unstable renal function, e.g. those with acute kidney injury, the eGFR may not accurately reflect actual GFR. Performed By: #### 3 016-3, 11962-6 ####[facility] LABORATORYCLIA [id number] [place] [address] [place] Glucose [Mass/Vol] 97 mg/dL Normal 74-99 [facility] Comment on above: Order Comment: Elias do Type: BLOOD SPECIMENOrdering Facility: [facility] Address: [place] [address] Result Comment: The [place] Diabetes [employer] (ADA) provides guidance for cutoff values for fasting glucose and random glucose. The ADA defines fasting as no caloric intake for at least 8 hours. Fasting plasma glucose results between 100 to 125 mg/dL indicate increased risk for diabetes (prediabetes). Fasting plasma glucose results greater than or equal to 126 mg/dL meet the criteria for diagnosis of diabetes. In the absence of unequivocal hyperglycemia, results should be confirmed by repeat testing. In a patient with classic symptoms of hyperglycemia or hyperglycemic crisis, random plasma glucose results greater than or equal to 200 mg/dL meet the criteria for diagnosis of diabetes. Reference: Standards of Medical Care in Diabetes 2016, [place] [employer]. Diabetes Care. 2016.39(Suppl 1). Performed By: #### 3 016-3, 91538-1 ####[facility] LABORATORYCLIA [id number] [place] [address] [place] Potassium [Moles/Vol] 3.7 mmol/L Normal 3.7-5.1 [facility] Comment on above: Order Comment: Elias do Type: BLOOD SPECIMENOrdering Facility: [facility] Address: [place] [phone] Performed By: #### 3 016-3, 62949-2 ####[facility] LABORATORYCLIA [id number] [facility] [id number] [place] [facility] Sodium [Moles/Vol] 142 mmol/L Normal 136-144 [facility] Comment on above: Order Comment: Speci men Type: BLOOD SPECIMENOrdering Facility: [facility] Address: [address] [place] [address] Performed By: #### 3 016-3, 75282-6 ####[facility] LABORATORYIA [id number] [address] [place] Urea nitrogen [Mass/Vol] 7 mg/dL Normal 7-21 [facility] Comment on above: Order Comment: Speci men Type: BLOOD SPECIMENOrdering Facility: [facility] Address: [address] [place] [address] Performed By: #### 3 016-3, 28430-9 ####[facility] [id number] [facility] [place] CBC panel Auto (Bld)on 01-13 Erythrocyte distribution width (RBC) [Ratio] 15.8 % High 11.5-15.0 [facility] Comment on above: Order Comment: Speci men Type: BLOOD SPECIMENOrdering Facility: [facility] Address: [address] [place] [address] Performed By: #### 5 8410-2 ####[facility] LABORATORYIA [id number] [facility] [place] Hematocrit (Bld) [Volume fraction] 34.0 % Low 36.0-46.0 [facility] Comment on above: Order Comment: Speci men Type: BLOOD SPECIMENOrdering Facility: [facility] Address: [address] [place] [address] Performed By: #### 5 8410-2 ####[facility] LABORATORYIA [id number] [facility] [place] [address] [place] Hemoglobin (Bld) [Mass/Vol] 10.4 g/dL Low 11.5-15.5 [facility] Comment on above: Order Comment: Speci men Type: BLOOD SPECIMENOrdering Facility: [facility] Address: [address] [place] [address] Performed By: #### 5 8410-2 ####[facility] [id number] [address] OF [facility] MCH (RBC) [Entitic mass] 27.7 pg Normal 26.0-34.0 [facility] Comment on above: Order Comment: Speci men Type: BLOOD SPECIMENOrdering Facility: [facility] Address: [address] [place] [address] Performed By: #### 5 8410-2 ####[facility] [id number] [address] [place] MCHC (RBC) [Mass/Vol] 30.6 g/dL Normal 30.5-36.0 [facility] Comment on above: Order Comment: Speci men Type: BLOOD SPECIMENOrdering Facility: [facility] Address: [address] [place] [address] Performed By: #### 5 8410-2 ####[facility] [id number] [address] OF [facility] MCV (RBC) [Entitic vol] 90.4 fL Normal 80.0-100.0 [facility] Comment on above: Order Comment: Speci men Type: BLOOD SPECIMENOrdering Facility: [facility] Address: [address] [place] [address] Performed By: #### 5 8410-2 ####[facility] [id number] [address] [place] Nucleated RBC (Bld) [#/Vol] 10*3/uL Normal <0.01 [facility] Comment on above: Order Comment: Speci men Type: BLOOD SPECIMENOrdering Facility: [facility] Address: [address] [place] [address] Performed By: #### 5 8410-2 ####[facility] LABORATORYIA [id number] [place] [address] [place] Platelet mean volume (Bld) [Entitic vol] 10.6 fL Normal 9.0-12.7 [facility] Comment on above: Order Comment: Speci men Type: BLOOD SPECIMENOrdering Facility: [facility] Address: [address] [place], [place] [address] Performed By: #### 5 8410-2 ####[facility] [id number] [place] [address] [place] Platelets (Bld) [#/Vol] 289 10*3/uL Normal 150-400 [facility] Comment on above: Order Comment: Speci men Type: BLOOD SPECIMENOrdering Facility: [facility] Address: [address] [place], [place] [address] Performed By: #### 5 8410-2 ####[facility] [id number] [place] [address] [place] RBC (Bld) [#/Vol] 3.76 10*6/uL Low 3.90-5.20 [facility] Comment on above: Order Comment: Speci men Type: BLOOD SPECIMENOrdering Facility: [facility] Address: [address] [place], [place] [address] Performed By: #### 5 8410-2 ####[facility] [id number] [place] [id number] [place] WBC (Bld) [#/Vol] 8.61 10*3/uL Normal 3.70-11.00 [facility] Comment on above: Order Comment: Speci men Type: BLOOD SPECIMENOrdering Facility: [facility] Address: [address] [place] [address] Performed By: #### 5 8410-2 ####[facility] [id number] [place] [id number] [facility] [place] CONSULT PROGon 01-13-2023 CONSULT PROG HNO ID: [id number] Author: Gertrudis Frederick APRN.PRODUCT DEVELOPMENT INTERN Service: Cardiovascular Medicine Author Type: Nurse Practitioner Type: Consult Progress Note Filed: 01/13/2023 3:34 PM Note Text: [facility] CONSULT PROGRESS NOTE (Template ID [id number]) CONSULTING SERVICE: Cardiology: Consult Team PRIMARY SERVICE: Internal Medicine HOSPITAL DAY: #3 REASON FOR CONSULT: Atrial fibrillation SUBJECTIVE HPI: Ms. Brooks is a 47 year old female from [place], [place] with h/o morbid obesity, necrotizing fascitis (2012), septic shock, bipolar disorder, HTN, tobacco abuse, asthma//COPD, lymphedema/lipedema, hypothyroidism, who presented with fever, chills and weakness. Primary work up diagnosis was cellulitis of LLE. While in hospital went in AF. Denies prior h/o AF, CAD, CHF, HTN, Stroke or TIA.. Denies feeling it. No chest pain, palpitations or lightheadedness. She was started on Metoprolol by primary service. INTERVAL HISTORY: OOB in recliner. No specific CV symptoms or complaints. Telemetry continues to show atrial fibrillation. REVIEW OF SYSTEMS: Pertinent 14 point ROS systems reviewed. Pertinent information, positive and/or negative or non-contributory with the exception of pertinent positives described in HPI. Past Medical, Family and Social history reviewed; unchanged from prior. OBJECTIVE MEDICATIONS: Current Facility-Administere d Medications Medication Dose Route Frequency miconazole 2 % 1 application topical powder 1 application TOPICAL BID carBAMazepine 100 mg tab(s) (TEGretol) 100 mg ORAL DAILY carBAMazepine 200 mg tab(s) (TEGretol) 200 mg ORAL AT BEDTIME hydrOXYzine HCl 25 mg tab(s) (ATARAX) 25 mg ORAL QID PRN benztropine 0.5 mg tab(s) (COGENTIN) 0.5 mg ORAL BID brexpiprazole 0.25 mg tab(s) (REXULTI) 0.25 mg ORAL DAILY albuterol 2.5 mg /3 mL (0.083 %) 2.5 mg (PROVENTIL) 2.5 mg INHALATION q 4 H PRN colestipol 1 g tab(s) (COLESTID) 1 g ORAL BID famotidine 20 mg tab(s) (PEPCID) 20 mg ORAL BID montelukast 10 mg tab(s) (SINGULAIR) 10 mg ORAL AT BEDTIME pantoprazole DR 40 mg tab(s) (PROTONIX) 40 mg ORAL BID methocarbamol 500 mg tab(s) (ROBAXIN) 500 mg ORAL TID PRN levothyroxine 50 mcg tab(s) (SYNTHROID) 50 mcg ORAL DAILY gabapentin 600 mg cap(s) (NEURONTIN) 600 mg ORAL q 6 H NaCl 0.9% iv flush bag 20 mL INTRAVENOUS PRN acetaminophen 650 mg tab(s) (TYLENOL) 650 mg ORAL q 6 H PRN trospium 20 mg tab(s) (SANCTURA) 20 mg ORAL BID AC bismuth subsalicylate 262 mg/15 mL 30 mL (BISMATROL) 30 mL ORAL q 6 H PRN lidocaine 4 % 1 Patch (SALONPAS) 1 Patch TRANSDERMAL DAILY AT 9 PM And lidocaine patch - REMOVE OTHER DAILY And lidocaine - VERIFY PATCH OTHER q 8 H benzonatate 100 mg cap(s) (TESSALON PERLE) 100 mg ORAL TID ceFAZolin iv piggyback 2 g in D5W (iso-osmotic) 100 mL (ANCEF) 2 g INTRAVENOUS q 8 HR metoprolol tartrate (short acting) 25 mg tab(s) (LOPRESSOR) 25 mg ORAL q 12 H calcium carbonate 500 mg chewable tab(s) (TUMS) 500 mg ORAL BID PRN sodium chloride 0.9 % (flush) 2-10 mL (BD POSIFLUSH) 2-10 mL INTRAVENOUS DIRECTED PRN And perflutren lipid microspheres 1.1 mg/mL 1.3 mL injection (DEFINITY) 1.3 mL INTRAVENOUS DIRECTED PRN potassium chloride ER 40 mEq tab(s) (KLOR-CON) 40 mEq ORAL ONCE PHYSICAL EXAM: 01/12/23 1940 01/12/23 2325 01/13/23 0311 01/13/23 0803 BP: 114/93 113/85 113/64 121/86 Pulse: 88 86 77 106 Resp: Temp: 36.5 ?C (97.7 ?F) 36.4 ?C (97.5 ?F) 36.5 ?C (97.7 ?F) 36.6 ?C (97.9 ?F) TempSrc: Oral Oral Oral Oral SpO2: 94% 94% 93% 92% Weight: Height: General Appearance: Obese and No acute distress HEENT: EOM's intact Lungs: Clear Heart: Irregularly irregular rhythm. No significant murmurs. No edema. Lymphedema Abdomen: Obese Skin: Warm and Dry. Tattoos Musculoskeletal: No deformities Neurologic/Psychiatr ic: No gross focal neurologic deficits Intake/Output Summary (Last 24 hours) at 01/13/2023 0910 Last data filed at 01/13/2023 0600 Gross per 24 hour Intake 1130 ml Output 1500 ml Net -370 ml TELEMETRY: DATA: Laboratory: Recent Labs 01/13/23 0446 01/12/23 0443 01/11/23 0549 WBC 8.61 8.61 13.19* HB 10.4* 10.3* 10.2* HCT 34.0* 33.2* 32.9* PLT 289 271 263 NA 142 141 138 K 3.7 4.1 3.6* CHLOR 105 106* 103 CO2 27 26 24 BUN 7 9 10 CREAT 0.59 0.69 0.72 GLUC 97 107* 118* ASSESSMENT / RECOMMENDATIONS / PLAN Newly diagnosed AF in s/o acute LLE cellulitis, h/o morbid obesity, HTN, tobacco abuse, asthma//COPD, lymphedema/lipedema, hypothyroidism, -Asymptomatic. -Echocardiogram completed today showing: EF 62?5%. Right ventricle dilated. RVSP 42 mmHg. No significant valvular abnormalities. -Laboratory reviewed and showing atrial fibrillation. Rate control with metoprolol tartrate 25 mg twice daily. Heart rate leniently controlled and will increase dose of metoprolol to tartrate to 37.5 mg twice daily. Titrate as needed. - [id number] VASc score is 2. Recomm (more content not included)... Normal [facility] 01-13-2023 Echocardiography Echocardiography Report: Transthoracic Echo [facility] Date of service: 01/13/2023 1:32:30 PM Ordering physician: CHRISSY NOVOA Indication: Sustained atrial fibrillation Technologist: Geovanyn Sánchez RCCS, RDCS, RVT, RDMS Interpreting physician: Chanda Yusuf MD PATIENT: Name: MS. MITCHELL BROOKS : 1975 Age: 47 years Gender: F Primary rhythm: atrial fib. Height: 157.50 cm BSA: 2.64 m Weight: 159.90 kg BMI: 64.5 kg/m Heart rate 99 bpm Blood pressure 121/86 mmHg Technically difficult exam due to BMI= 64.5 kg/m2. Color Doppler was utilized to interrogate the cardiac valves assessed and spectral Doppler was utilized to determine the flow velocities and pressure gradients reported in this exam. MEASUREMENTS: Value Indexed Normal Max aortic dimension 3.2 cm Ao < 3.8 LV ID (diastole) 4.5 cm (2D) 1.69 cm/m LV ID (systole) 2.8 cm (2D) 1.07 cm/m IVS, leaflet tips 1.1 cm (2D) Posterior wall thickness 1.0 cm (2D) Left ventricular mass 161 g (2D) 61 g/m LV stroke volume 54 ml (2D biplane) LV end diastolic volume 87 ml (2D biplane) 33.0 ml/m 29<=EDVi<62 LV end systolic volume 33 ml (2D biplane) 12.6 ml/m Ejection Fraction 62 % (2D biplane) EF > 54 FINDINGS: LEFT VENTRICLE The left ventricle is normal in size. Left ventricular systolic function is normal. Left ventricular diastolic function was not evaluated due to AF. Mitral annular lateral E/e': 7.7. Mitral annular septal E/e': 7.7. Definity contrast used for endocardial border detection. Wall Motion: All scored segments are normal. RIGHT VENTRICLE The right ventricle is dilated. Right ventricular systolic function is mildly decreased. Estimated right ventricular systolic pressure is 42 mmHg consistent with mild pulmonary hypertension. Estimated right atrial pressure is 15 mmHg based on IVC assessment. LEFT ATRIUM Unable to reliably measure LA volume due to technical limitations. RIGHT ATRIUM Unable to reliably measure RA volume due to technical limitations. Inferior Vena Cava: The inferior vena cava appears dilated measuring 2.6 cm. The vessel decreases less than 50 percent with inspiration. MITRAL VALVE There is trace mitral valve regurgitation. There is mild thickening. The average mitral E/e' ratio is 7.7. TRICUSPID VALVE There is mild (1+) tricuspid valve regurgitation. AORTIC VALVE Aortic morphology is not well visualized. There is no aortic valve regurgitation. There is mild thickening. The peak gradient is 3 mmHg (peak velocity = 83.9 cm/s). PULMONIC VALVE The pulmonic valve was not seen or not interrogated. There is trace pulmonic valve regurgitation. The peak gradient is 2 mmHg. AORTA The visualized aorta is normal in size. Measurements - Mid ascending aorta 3.2 cm. PULMONARY ARTERIES The pulmonary arteries are normal. CONCLUSIONS: - Technically difficult exam due to BMI= 64.5 kg/m2. - Exam indication: Sustained atrial fibrillation - The left ventricle is normal in size. Left ventricular systolic function is normal. EF = 62 5% (2D biplane) Definity contrast used for endocardial border detection. Left ventricular diastolic function was not evaluated due to AF. - The right ventricle is dilated. Right ventricular systolic function is mildly decreased. - Estimated right ventricular systolic pressure is 42 mmHg consistent with mild pulmonary hypertension. Estimated right atrial pressure is 15 mmHg based on IVC assessment. - At least 1+ TR. - The patient has not had a prior CC echocardiographic exam for comparison. * * * Final * * * CC [facility] : [id number]. [id number] ynamicsSISUID [facility] THERAPY NTon 01-13-2023 THERAPY NT HNO ID: [id number] Author: Chapis Forde PT, LATONIA Service: ? Author Type: Physical Therapist Type: Therapy (PT/OT/Speech/Resp) Filed: 01/13/2023 2:52 PM Note Text: PHYSICAL THERAPY MISSED VISIT SERVICE DATE: 01/13/2023 SERVICE TIME: 1451 to 1451 ROOM: [place] [address] Patient not seen due to Another service at bedside. PT will re-attempt at a later date. SIGNATURE: Chapis Forde PT, DPT PATIENT NAME: Mitchell Brooks DATE: January 13, 2023 TIME: 2:52 PM [facility] TSH SerPl-aCncon 01-13-2023 TSH Qn 2.350 m[IU]/L Normal 0.270-4.200 [facility] Comment on above: Order Comment: Speci men Type: BLOOD SPECIMENOrdering Facility: [facility] Address: [address] [place] [id number] Result Comment: If t he patient is , TSH reference range varies by gestational period: First Trimester (weeks 9-12): 0.180-2.990 mIU/L Second Trimester: 0.110-3.980 mIU/L Third Trimester: 0.480-4.710 mIU/L Epi Hopkins et al. A Practical Approach for the Verifications and Determination of Site- and Trimester-Specific Reference Intervals for Thyroid Function tests in . Thyroid, 2019:29:3:412-420. Dao E, et al. 2017 Guidelines of the [place] Thyroid Association for the Diagnosis and Management of Thyroid Disease during and the . Thyroid, 2017:27:3:315-389. Performed By: #### 3 016-3, 60463-7 ####[facility] LABORATORYCLIA [id number] [place] [address] [place] Basic metabolic 2000 panelon 01-12-2023 Anion gap [Moles/Vol] 9 mmol/L Normal 9-18 [facility] Comment on above: Order Comment: Elias do Type: BLOOD SPECIMENOrdering Facility: [facility] Address: [address] [address] Performed By: #### 1 9123-9, 72970-1 ####[facility] [id number] [place] [address] [place] Calcium [Mass/Vol] 8.8 mg/dL Normal 8.5-10.2 [facility] Comment on above: Order Comment: Elias do Type: BLOOD SPECIMENOrdering Facility: [facility] Address: [address] [address] Performed By: #### 1 9123-9, 37804-6 ####[facility] LABORATORYIA [id number] [place] [address] [place] Chloride [Moles/Vol] 106 mmol/L High 97-105 [facility] Comment on above: Order Comment: Elias do Type: BLOOD SPECIMENOrdering Facility: [facility] Address: [address] [address] Performed By: #### 1 9123-9, 63621-3 ####[facility] LABORATORYIA [id number] [place] [address] [place] CO2 [Moles/Vol] 26 mmol/L Normal 22-30 [facility] Comment on above: Order Comment: Speci men Type: BLOOD SPECIMENOrdering Facility: [facility] Address: [address] [address] Performed By: #### 1 9123-9, 31740-5 ####[facility] LABORATORYIA [id number] [place] [address] [place] Creatinine [Mass/Vol] 0.69 mg/dL Normal 0.58-0.96 [facility] Comment on above: Order Comment: Speci men Type: BLOOD SPECIMENOrdering Facility: [facility] Address: [address] [place] [address] Performed By: #### 1 9123-9, 25281-6 ####[facility] [id number] [address] [place] ESTIMATED GLOMERULAR FILTRATION RATE 107 mL/min/1.73m??? Normal >=60 [facility] Comment on above: Order Comment: Speci men Type: BLOOD SPECIMENOrdering Facility: [facility] Address: [address] [place] [address] Result Comment: Carmen mated Glomerular Filtration Rate (eGFR) is calculated using the 2020 CKD-EPI creatinine equation. This equation utilizes serum creatinine, sex, and age as parameters. The creatinine assay has traceable calibration to isotope dilution-mass spectrometry. Refer to KDIGO guidelines for clinical interpretation. In patients with unstable renal function, e.g. those with acute kidney injury, the eGFR may not accurately reflect actual GFR. Performed By: #### 1 9123-9, 52684-5 ####[facility]ATORYIA [id number] [place] [address] [place] Glucose [Mass/Vol] 107 mg/dL High 74-99 [facility] Comment on above: Order Comment: Speci men Type: BLOOD SPECIMENOrdering Facility: [facility] Address: [address] [place], [place] [address] Result Comment: The [place] Diabetes Association (ADA) provides guidance for cutoff values for fasting glucose and random glucose. The ADA defines fasting as no caloric intake for at least 8 hours. Fasting plasma glucose results between 100 to 125 mg/dL indicate increased risk for diabetes (prediabetes). Fasting plasma glucose results greater than or equal to 126 mg/dL meet the criteria for diagnosis of diabetes. In the absence of unequivocal hyperglycemia, results should be confirmed by repeat testing. In a patient with classic symptoms of hyperglycemia or hyperglycemic crisis, random plasma glucose results greater than or equal to 200 mg/dL meet the criteria for diagnosis of diabetes. Reference: Standards of Medical Care in Diabetes 2016, [place] Diabetes Association. Diabetes Care. 2016.39(Suppl 1). Performed By: #### 1 9123-9, 24120-5 ####[facility] LABORATORYCLIA [id number] [place] [address] [place] Potassium [Moles/Vol] 4.1 mmol/L Normal 3.7-5.1 [facility] Comment on above: Order Comment: Speci men Type: BLOOD SPECIMENOrdering Facility: [facility] Address: [address] Performed By: #### 1 [address]12[address], 37851-5 ####[facility] [id number] [place] [address] [place] Sodium [Moles/Vol] 141 mmol/L Normal 136-144 [facility] Comment on above: Order Comment: Speci men Type: BLOOD SPECIMENOrdering Facility: [facility] Address: [address] Performed By: #### 1 91239, 82522-6 ####[facility] LABORATORYCLIA [id number] [place] [address] [place] Urea nitrogen [Mass/Vol] 9 mg/dL Normal 7-21 [facility] Comment on above: Order Comment: Speci men Type: BLOOD SPECIMENOrdering Facility: [facility] Address: [address] Performed By: #### 1 912[address], 20290-8 ####[facility]ORATORYIA [id number] [address] [place] CBC panel Auto (Bld)on 01-12 Erythrocyte distribution width (RBC) [Ratio] 15.9 % High 11.5-15.0 [facility] Comment on above: Order Comment: Speci men Type: BLOOD SPECIMENOrdering Facility: [facility] Address: [address] [place] [address] Performed By: #### 5 8410-2 ####[facility] LABORATORYIA [id number] [address] Hematocrit (Bld) [Volume fraction] 33.2 % Low 36.0-46.0 [facility] Comment on above: Order Comment: Speci men Type: BLOOD SPECIMENOrdering Facility: [facility] Address: [address] [place] [address] Performed By: #### 5 8410-2 ####[facility] [id number] [address] [place] Hemoglobin (Bld) [Mass/Vol] 10.3 g/dL Low 11.5-15.5 [facility] Comment on above: Order Comment: Speci men Type: BLOOD SPECIMENOrdering Facility: [facility] Address: [address] [place] [address] Performed By: #### 5 8410-2 ####[facility] LABORATORYIA [id number] [address] MCH (RBC) [Entitic mass] 27.8 pg Normal 26.0-34.0 [facility] Comment on above: Order Comment: Speci men Type: BLOOD SPECIMENOrdering Facility: [facility] Address: [address] [place] [address] Performed By: #### 5 8410-2 ####[facility]ORATORYIA [id number] [address] [place] MCHC (RBC) [Mass/Vol] 31.0 g/dL Normal 30.5-36.0 [facility] Comment on above: Order Comment: Speci men Type: BLOOD SPECIMENOrdering Facility: [facility] Address: [address] Performed By: #### 5 8410-2 ####[facility] [id number] [place] [address] [place] MCV (RBC) [Entitic vol] 89.7 fL Normal 80.0-100.0 [facility] Comment on above: Order Comment: Speci men Type: BLOOD SPECIMENOrdering Facility: [facility] Address: [address] Performed By: #### 5 8410-2 ####[facility] [id number] [place] [address] [place] Nucleated RBC (Bld) [#/Vol] 10*3/uL Normal <0.01 [facility] Comment on above: Order Comment: Speci men Type: BLOOD SPECIMENOrdering Facility: [facility] Address: [address] Performed By: #### 5 8410-2 ####[facility] [id number] [place] [address] [place] Platelet mean volume (Bld) [Entitic vol] 10.8 fL Normal 9.0-12.7 [facility] Comment on above: Order Comment: Speci men Type: BLOOD SPECIMENOrdering Facility: [facility] Address: [address] Performed By: #### 5 8410-2 ####[facility] [id number] [place] [address] [place] Platelets (Bld) [#/Vol] 271 10*3/uL Normal 150-400 [facility] Comment on above: Order Comment: Speci men Type: BLOOD SPECIMENOrdering Facility: [facility] Address: [address] Performed By: #### 5 8410-2 ####[facility] LABORATORYCLIA [id number] [facility] [place] [address] [facility] RBC (Bld) [#/Vol] 3.70 10*6/uL Low 3.90-5.20 [facility] Comment on above: Order Comment: Speci men Type: BLOOD SPECIMENOrdering Facility: [facility] Address: [address] [address] Performed By: #### 5 8410-2 ####[facility] LABORATORYCLIA [id number] [facility] [place] [address] [facility] WBC (Bld) [#/Vol] 8.61 10*3/uL Normal 3.70-11.00 [facility] Comment on above: Order Comment: Speci men Type: BLOOD SPECIMENOrdering Facility: [facility] Address: [address] [place] [address] Performed By: #### 5 8410-2 ####[facility] [id number] [place] [id number] [facility] CONSULTon 01-12-2023 CONSULT HNO ID: [id number] Author: Quintin Yusuf MD Service: Cardiovascular Medicine Author Type: Physician Type: Consults Filed: 01/12/2023 2:42 PM Note Text: CONSULT: CARDIOLOGY SERVICE SERVICE DATE: 01/12/2023 SERVICE TIME: 2:10 pm CONSULTING PHYSICIAN: Quintin Yusuf PCP: Nabila Watson MD ATTENDING: Chrissy Novoa MD REASON FOR CONSULT: Atrial fibrillation My recommendations will be communicated to consulting physician via shared EMR Subjective CHIEF COMPLAINT: Sepsis (HCC) [A41.9] HISTORY OF PRESENT ILLNESS: Ms. Brooks is a 47 year old female from [place], [place] with h/o morbid obesity, necrotizing fascitis (2012), septic shock, bipolar disorder, HTN, tobacco abuse, asthma//COPD, lymphedema/lipedema, hypothyroidism, who presented with fever, chills and weakness. Primary work up diagnosis was cellulitis of LLE. While in hospital went in AF. Denies prior h/o AF, CAD, CHF, HTN, Stroke or TIA.. Denies feeling it. No chest pain, palpitations or lightheadedness. She was started on Metoprolol by primary service. PAST MEDICAL HISTORY Diagnosis Date RAFIA (acute kidney injury) ([facility]) 07/20/2013 Baseline Cr 0.58 07/20 Cr 1.6 Possibly 2/2 sepsis (organ damage) as pt received 8L IVFs Making urine appropriately Plan: IVFs Anxiety Asthma Cervical spondylosis Chronic pain Debility HTN (hypertension) Hypothyroid Irritable bowel syndrome Lymphedema Morbid obesity (HCC) Necrotizing fasciitis ([facility]) 08/14/2012 thigh wound Septic shock ([facility]) 07/20/2013 On Dopamine, vasopressine and NE upon admission Given solumedrol 125mg IV at OSH Given 8L at OSH Started on meropenem, ceftriaxone, vanc and clindamycin at OSH (one dose of each) ? Necrotizing fascitis? Plan: Continue pressors Bolus NS 500cc once Hydrocortisone 100mg q8hrs Start vanc, clinda and zosyn Gen Surgery consulted --> to the OR for debridement. PAST SURGICAL HISTORY Procedure Laterality Date PAST SURGICAL HISTORY OF c section x 2 PAST SURGICAL HISTORY OF 2013 tracheostomy PAST SURGICAL HISTORY OF Right 2013 debridement of thigh wound TONSILLECTOMY HX TUBAL LIGATION, FAMILY HISTORY Problem Relation Age of Onset Diabetes Father Heart Paternal Grandmother Heart Paternal Grandfather other (liver cancer [Other]) Other mother Social History Tobacco Use Smoking status: Every Day Packs/day: 0.50 Years: 25.00 Pack years: 12.50 Types: Cigarettes Smokeless tobacco: Never Tobacco comments: down to maybe 6 cigarettes through the day Vaping Use Vaping Use: Never used Substance Use Topics Alcohol use: No Drug use: No Prior to Admission Medications Prescriptions Last Dose Informant Patient Reported? Taking? Levothyroxine 50 mcg cap 01/09/2023 No Yes Sig: Take 1 capsule by mouth once daily. Multivits,CalciumAND Minerals-FA 267 mcg tab 01/09/2023 Yes Yes Sig: Take 1 tablet by mouth once daily. acetaminophen (TYLENOL) 325 mg tablet Unknown No No Sig: Take 2 tablets by mouth every 6 hours as needed for Pain or Fever. albuterol (PROVENTIL) 2.5 mg /3 mL (0.083 %) nebulizer solution Unknown Yes No Sig: Use 2.5 mg via nebulizer every 4 hours as needed for wheezing/shortness of breath. albuterol HFA (PROVENTIL HFA, VENTOLIN HFA) 90 mcg/actuation inhaler Unknown Yes No Sig: Inhale 2 Puffs as instructed every 6 hours as needed. benztropine (COGENTIN) 0.5 mg tablet 01/09/2023 Yes Yes Sig: Take 0.5 mg by mouth twice daily. brexpiprazole (REXULTI) 0.25 mg tablet 01/09/2023 Yes Yes Sig: Take 0.25 mg by mouth once daily. carBAMazepine (TEGRETOL) 200 mg tablet 01/09/2023 Yes Yes Sig: Take 100 mg by mouth once daily. At noon carBAMazepine (TEGRETOL) 200 mg tablet 01/09/2023 Yes Yes Sig: Take 200 mg by mouth daily at bedtime. colestipol (COLESTID) 1 gram tablet 01/09/2023 Yes Yes Sig: Take 1 g by mouth twice daily. famotidine (PEPCID) 20 mg tablet 01/09/2023 No Yes Sig: Take 1 tablet by mouth twice daily. gabapentin (NEURONTIN) 300 mg capsule 01/09/2023 No Yes Sig: Take 1 capsule by mouth daily at bedtime. Patient taking differently: Take 300 mg by mouth three times daily. glucosamine HCl (GLUCOSAMINE, BULK, MISC) Unknown Yes No hydrOXYzine HCl (ATARAX) 25 mg tablet 01/09/2023 Yes Yes Sig: Take 25 mg by mouth four times daily as needed. methocarbamol (ROBAXIN) 500 mg tablet 01/09/2023 No Yes Sig: Take 1 tablet by mouth three times daily as needed. montelukast (SINGULAIR) 10 mg tablet 01/08/2023 Yes No Sig: Take 10 mg by mouth once daily. oxybutynin XL (DITROPAN XL) 5 mg 24 hr tablet 01/08/2023 Yes No Sig: TAKE 1 TABLET BY MOUTH DAILY AT BEDTIME for overactive bladder pantoprazole DR (PROTONIX) 40 mg tablet 01/09/2023 Yes Yes Sig: Take 40 mg by mouth twice daily. Facility-Administere d Medications: None Current Facility-Administere d Medications Medication Dose Route Frequency miconazole 2 % 1 application topical powder 1 application TOPICAL BID carBAMazepine 100 mg tab(s) (more content not included)... Normal [facility] ECG COMPLETEon 01-12-2023 ECG COMPLETE Ventricular Rate : 99 BPM Atrial Rate : 0 BPM P-R Interval : 128 ms QRS Duration : 100 ms Q-T Interval : 366 ms QTC Calculation(Bazett) : 470 ms Calculated R [place] : 37 degrees Calculated T [place] : 3 degrees Atrial fibrillation Nonspecific ST and T wave abnormality Confirmed by JOSE M DESAI MD ([id number]) on 01/14/2023 1:03:28 PM NAME : MITCHELL BROOKS PID : [id number] : 1975 Gender : Female Race : ORD : [id number] Procedure Date : Jan 12 2023 14:28:44 Edit Date : Jan 14 2023 13:03:29 Diagnosis: Atrial fibrillation Nonspecific ST and T wave abnormality Confirmed by JOSE M DESAI MD ([id number]) on 01/14/2023 1:03:28 PM Test Reason : Arrhythmia Location : 300 : EKG 506 Overread By : JOSE M DESAI MD Edited By : JOSE M DESAI MD Referred By : ROMÁN CHANDLER Acquired by : Beth ERICKSON [facility] HCG Preg Ur Qlon 01-12-2023 HCG ( test) Ql (U) Negative Normal Negative [facility] Comment on above: Order Comment: Speci men Type: URINE SPECIMENOrdering Facility: [facility] Address: [facility] [place] [address] Result Comment: This test is intended to aid in the early detection of . Very dilute urine samples, as indicated by a low specific gravity, may not contain food products sales representative levels of hCG. This test detects intact hCG only. This test does not reliably detect hCG degradation products, including free-beta subunit and beta-core fragment. Therefore, this test may show reduced reactivity in urine after 8 weeks gestation. A number of conditions other than , including trophoblastic disease and certain non-trophoblastic neoplasms cause elevated levels of hCG. As with any assay employing mouse antibodies, the possibility exists for interference by human anti-mouse antibodies (HAMA) in the specimen. The test provides a presumptive diagnosis for . Performed By: #### 2 106-3 ####[facility] LABORATORYCLIA [id number] [place] [address] [facility] [place] Magnesium SerPl-mCncon 01-12 Magnesium [Mass/Vol] 2.0 mg/dL Normal 1.7-2.3 [facility] Comment on above: Order Comment: Speci men Type: BLOOD SPECIMENOrdering Facility: [facility] Address: [place] [address] Performed By: #### 1 9123-9, 35949-9 ####[facility] LABORATORYCLIA [id number] [facility] [place] [address] [facility] NURSING PROGon 01-12-2023 NURSING PROG HNO ID: [id number] Author: Donna Harrison RN Service: PICC Team Author Type: Registered Nurse Type: Nursing Progress Note Filed: 01/12/2023 2:41 PM Note Text: PICC/VASCULAR ACCESS PROGRESS NOTE SERVICE DATE: 01/12/2023 SERVICE TIME: [address] [place] [address] for difficult IV start. #20 angio 2 inch placed in right forearm under ultrasound guidance. Brisk blood return flushed with 10ml of normal saline with no complications. RN aware. SIGNATURE: Donna Harrison RN PATIENT NAME: Mitchell Brooks DATE: January 12, 2023 TIME: 2:38 PM PAGER/CONTACT #: [phone] [facility] THERAPY NT 01-12-2023 THERAPY NT HNO ID: [id number] Author: Chapis Forde, PT, DPT Service: ? Author Type: Physical Therapist Type: Therapy (PT/OT/Speech/Resp) Filed: 01/12/2023 1:48 PM Note Text: Physical Therapy Treatment SERVICE DATE: 01/12/2023 SERVICE TIME: 1310 to 1335 ROOM: [place] [address] Recommended Discharge Disposition: Home PT Recommended Discharge Disposition Comments: home PT for home safety assessment Anticipated Discharge Needs: Physical Assist at Home Physical Assist at Home for: Cleaning, Laundry, Meals, Stairs, Transportation, Shopping Recommended Discharge Equipment: No equipment needs anticipated PT 6 Clicks Score: 23 Precautions/Activity Restrictions: Fall Risk Current Hospital Course: Admitted 01/10 for chills, generalized weakness. Placed on sepsis carepath. Flipped into afib 01/11. PT/OT consult. Reason for Hospital Admission: chills, generalized weakness Relevant Past Medical History: Sepsis, obesity, hypothyroidism, tobacco use disorder, HTN, asthma, bipolar depression, L LE cellulitis, fever, cervical disc disorder with myelopathy, LBP, anemia Response to Therapy Interventions: Good Participation in Activities Assessment Comments: Per RNchristine for PT Continued Skilled Needs Due to: Functional Mobility/Skill Impairments Physical Therapy Problem List: Decreased Activity Tolerance, Decreased Strength, Functional Mobility Impairment, Balance Impaired Treatment Interventions: Education, Energy Conservation Training, Strengthening, Functional Mobility Training, Balance Training, Neuromuscular Re-education Home Environment Patient Lives With: Spouse (sister and nephew live next door) Assistance Available: Part-Time (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 (always off on )) Entry To Home: Stairs, With Rail Number Of Stairs Into Home: 3 Number Of Stairs To Bed/Bath: 0 Tub/Shower Type: tub shower, grab bar, shower chair Laundry: assists Equipment Owned: Cane, Walker- Wheeled, Rollator, Shower Chair, Grab Bars- Shower, Ethylbenzene Converter Operator, Long Handled Shoe Horn, Sock Aid, Commode- Raised, Grab Bars- Toilet (same grab bar for toilet and shower (in between toilet and tub)) Prior Functional Level: Required Assistance, Within Functional Limits Assistance Required With: Cleaning, Laundry, Meals Prior Functional Level Comments: Pt reports typically IND with ADLs and most IADLs. + drives. Pt reports no recent falls. Ambulatory with cane typically in the home, ambulatory with WW outside the home. Able to navigate the stairs, however with increased time. typically stands behind her. Sleeps in recliner chair. Baseline Cognition: Oriented to self, Oriented to place, Oriented to time, Oriented to situation Patient Report: "I am just waiting for cardiology." CURRENT FUNCTIONAL STATUS: Most recent performance Current Functional Mobility Assist Level Additional Information Rolling Supine to Sit Sit to Supine Scooting Sit to Stand Stand By Assistance Stand to Sit Stand By Assistance Bed to Chair Toilet/Commode Stand By Assistance Gait Stand By Assistance Gait Device: Wheeled Walker (bariatric) Gait Distance (feet): 40' Stairs Curb Step Car Transfer Blank choudhury indicate activity not attempted General Deviations/Observati ons: Mary decreased, Flexed trunk posture, Wide base of support, Step length decreased, UE weight bearing on assistive device excessive Balance: Static Sitting, Dynamic Sitting, Static Standing, Dynamic Standing Static Sitting Balance: Good Patient able to maintain balance without handhold support, limited postural sway Dynamic Sitting Balance: Good Patient accepts moderate challenge, able to maintain balance while picking up object off floor Static Standing Balance: Fair Patient able to maintain balance with handhold support, may require occasional minimal assistance Dynamic Standing Balance: Fair Patient accepts minimal challenge, able to maintain balance while turning head/trunk -M: 7: Walk 25 feet or more Learning/Educational Needs: Discharge Plan, Functional Activities/Mobility Goals for Plan of Care: Patient/Caregiver Goals: Go Home Goals: Patient will demonstrate understanding of importance of mobility during hospital stay and resolve all functional needs identified., Patient will demonstrate progress with functional mobility to allow safe discharge to home with available support and/or physical assistance. Progress Toward Goals: Progressing as expected Rehab Potential: Good Patient will be discontinued from Physical Therapy when no further skilled needs are identified in this setting. PLAN: PT Frequency: 3 times per week Plan of Care developed with: Patient TREATMENT INTERVENTIONS: Therapy Diagnosis: Reduced mobility-other, Abnormalities of gait and mobility-other Interventions Provided: Gait Training (92840), Therapeutic Activity (40227) Therapeutic Activity (30055) Treatment Minutes: 8 $ (more content not included)... Normal [facility] THERAPY NT HNO ID: [id number] Author: Melodie Nieves OT/L Service: Occupational Therapy Author Type: Occupational Therapist Type: Therapy (PT/OT/Speech/Resp) Filed: 01/12/2023 12:28 PM Note Text: Occupational Therapy Evaluation SERVICE DATE: 01/12/2023 SERVICE TIME: 1152 to 1217 ROOM: [place] [address] Recommended Discharge Disposition: Home OT Recommended Discharge Disposition Comments: For safety assessment Anticipated Discharge Needs: Physical Assist at Home Physical Assist at Home for: Cleaning, Laundry, Meals, Stairs, Transportation, Shopping Recommended Discharge Equipment: To Be Determined OT 6 Clicks Score: 22 Precautions/Activity Restrictions: Fall Risk Current Hospital Course: Admitted 01/10 for chills, generalized weakness. Placed on sepsis carepath. Flipped into afib 01/11. PT/OT consult. Reason for Hospital Admission: chills, generalized weakness Relevant Past Medical History: Sepsis, obesity, hypothyroidism, tobacco use disorder, HTN, asthma, bipolar depression, L LE cellulitis, fever, cervical disc disorder with myelopathy, LBP, anemia Response to Therapy Interventions: Good Participation in Activities, Labile Vital Signs Continued Skilled Needs Due to: Functional Impairment Occupational Therapy Problem List: Impaired Self Care, Decreased Activity Tolerance, Functional Mobility Impairment, Balance Impaired, Sensory Deficit Cognition/Communicat ion Deficits Responsiveness: Alert, Awake Follows Commands: 3-step Commands Treatment Interventions: Education, Self Care/Home Management, Energy Conservation Training, Joint Mobility, Strengthening, Balance Training, Functional Mobility Training Home Environment Patient Lives With: Spouse (sister and nephew live next door) Assistance Available: Part-Time (pt's pilar 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 (always off on )) Entry To Home: Stairs, With Rail Number Of Stairs Into Home: 3 Number Of Stairs To Bed/Bath: 0 Tub/Shower Type: tub shower, grab bar, shower chair Laundry: assists Equipment Owned: Cane, Walker- Wheeled, Rollator, Shower Chair, Grab Bars- Shower, Ethylbenzene Converter Operator, Long Handled Shoe Horn, Sock Aid, Commode- Raised, Grab Bars- Toilet (same grab bar for toilet and shower (in between toilet and tub)) Prior Functional Level: Required Assistance, Within Functional Limits Assistance Required With: Cleaning, Laundry, Meals Prior Functional Level Comments: Pt reports typically IND with ADLs and most IADLs. + drives. Pt reports no recent falls. Ambulatory with cane typically in the home, ambulatory with WW outside the home. Able to navigate the stairs, however with increased time. typically stands behind her. Sleeps in recliner chair. Baseline Cognition: Oriented to self, Oriented to place, Oriented to time, Oriented to situation Current and/or Former Occupation: on disability Occupational Factors Life Roles: Spouse/Significant Other, Family Member Identified Strengths: Good Support System, Access to Healthcare Identified Barriers: Medical Acuity/Chronic Condition Patient Report: They told me yesterday I could leave today. Now I have to see the clinical editor and infectious disease before I leave." CURRENT FUNCTIONAL STATUS: Most recent performance Current Activities of Daily Living Assist Level Additional Information Feeding Set Up Grooming Set Up (seated) Bathing Upper Body Stand By Assistance Bathing Lower Body Minimal Assistance Dressing Upper Body Stand By Assistance Dressing Lower Body Minimal Assistance, Additional Information pt reports she has LB AE at home to assist her if needed Toileting Stand By Assistance Instrumental Activities of Daily Living Assist Level Additional Information Meal/Beverage Prep Cleaning Laundry Medication Management with Strategies Functional Mobility Assist Level Additional Information Rolling Supine to Sit Sit to Supine Scooting Sit to Stand Stand By Assistance Stand to Sit Stand By Assistance Bed to Chair Toilet/Commode Stand By Assistance Shower Functional Mobility Stand By Assistance Wheeled Walker (bariatric ww) Blank choudhury indicate activity not attempted Learning/Educational Needs: Discharge Plan, Equipment, Functional Activities/Mobility, Plan of Care, Positioning, Rehabilitation Techniques and Procedures, Safety, Self Care Goals for Plan of Care: Patient/Caregiver Goals: Reduce ADL/IADL barriers Goals: Patient will demonstrate progress with self-care, cognitive and/or coping needs identified to allow safe discharge to home with available support and/or physical assistance. Rehab Potential: Good Patient will be discontinued from Occupational Therapy when no further skilled needs are identified in this setting. PLAN: OT Frequency: 2 times per week Plan of Care developed with: Patient TREATMENT INTERVENTIONS: Therapy Diagnosis: Reduced mobility-other, Decreased activities of daily living (ADL), Muscle (more content not included)... Normal [facility] Basic metabolic 2000 panelon 01-11-2023 Anion gap [Moles/Vol] 11 mmol/L Normal 9-18 [facility] Comment on above: Order Comment: Speci men Type: BLOOD SPECIMENOrdering Facility: [facility] Address: [address] [address] Performed By: #### 2 4321-2 ####[facility] LABORATORYCLIA [id number] [place] [address] [place] Calcium [Mass/Vol] 8.4 mg/dL Low 8.5-10.2 [facility] Comment on above: Order Comment: Speci men Type: BLOOD SPECIMENOrdering Facility: [facility] Address: [address] [address] Performed By: #### 2 4321-2 ####[facility] LABORATORYCLIA [id number] [place] [address] [place] Chloride [Moles/Vol] 103 mmol/L Normal 97-105 [facility] Comment on above: Order Comment: Speci men Type: BLOOD SPECIMENOrdering Facility: [facility] Address: [address] [address] Performed By: #### 2 4321-2 ####[facility] LABORATORYCLIA [id number] [place] [address] [place] CO2 [Moles/Vol] 24 mmol/L Normal 22-30 [facility] Comment on above: Order Comment: Speci men Type: BLOOD SPECIMENOrdering Facility: [facility] Address: [address] [address] Performed By: #### 2 4321-2 ####[facility] LABORATORYCLIA [id number] [address] [place] Creatinine [Mass/Vol] 0.72 mg/dL Normal 0.58-0.96 [facility] Comment on above: Order Comment: Speci men Type: BLOOD SPECIMENOrdering Facility: [facility] Address: [address] [place] [address] Performed By: #### 2 4321-2 ####[facility] LABORATORYIA [id number] [address] [place] ESTIMATED GLOMERULAR FILTRATION RATE 103 mL/min/1.73m??? Normal >=60 [facility] l Comment on above: Order Comment: Speci men Type: BLOOD SPECIMENOrdering Facility: [facility] Address: [address] [place] [address] Result Comment: Carmen mated Glomerular Filtration Rate (eGFR) is calculated using the 2020 CKD-EPI creatinine equation. This equation utilizes serum creatinine, sex, and age as parameters. The creatinine assay has traceable calibration to isotope dilution-mass spectrometry. Refer to KDIGO guidelines for clinical interpretation. In patients with unstable renal function, e.g. those with acute kidney injury, the eGFR may not accurately reflect actual GFR. Performed By: #### 2 4321-2 ####[facility] LABORATORYCLIA [id number] [place] [address] [place] Glucose [Mass/Vol] 118 mg/dL High 74-99 [facility] Comment on above: Order Comment: Speci men Type: BLOOD SPECIMENOrdering Facility: [facility] Address: [address] [place] [address] Result Comment: The [place] [employer] (ADA) provides guidance for cutoff values for fasting glucose and random glucose. The ADA defines fasting as no caloric intake for at least 8 hours. Fasting plasma glucose results between 100 to 125 mg/dL indicate increased risk for diabetes (prediabetes). Fasting plasma glucose results greater than or equal to 126 mg/dL meet the criteria for diagnosis of diabetes. In the absence of unequivocal hyperglycemia, results should be confirmed by repeat testing. In a patient with classic symptoms of hyperglycemia or hyperglycemic crisis, random plasma glucose results greater than or equal to 200 mg/dL meet the criteria for diagnosis of diabetes. Reference: Standards of Medical Care in Diabetes 2016, [place] [employer]. Diabetes Care. 2016.39(Suppl 1). Performed By: #### 2 4321-2 ####[facility] LABORATORYCLIA [id number] [place] [id number] [place] Potassium [Moles/Vol] 3.6 mmol/L Low 3.7-5.1 [facility] Comment on above: Order Comment: Speci men Type: BLOOD SPECIMENOrdering Facility: [facility] Address: [address] [place] [address] Performed By: #### 2 4321-2 ####[facility] LABORATORYIA [id number] [place] [address] [place] Sodium [Moles/Vol] 138 mmol/L Normal 136-144 [facility] Comment on above: Order Comment: Speci men Type: BLOOD SPECIMENOrdering Facility: [facility] Address: [address] [place] [address] Performed By: #### 2 4321-2 ####[facility] [id number] [place] [address] [place] Urea nitrogen [Mass/Vol] 10 mg/dL Normal 7-21 [facility] Comment on above: Order Comment: Speci men Type: BLOOD SPECIMENOrdering Facility: [facility] Address: [address] [address] Performed By: #### 2 4321-2 ####[facility] LABORATORYIA [id number] [address] [place] CBC panel Auto (Bld)on 01-11 Erythrocyte distribution width (RBC) [Ratio] 16.0 % High 11.5-15.0 [facility] Comment on above: Order Comment: Speci men Type: BLOOD SPECIMENOrdering Facility: [facility] Address: [address] [address] Performed By: #### 5 8410-2 ####[facility] [id number] [address] [place] Hematocrit (Bld) [Volume fraction] 32.9 % Low 36.0-46.0 [facility] Comment on above: Order Comment: Speci men Type: BLOOD SPECIMENOrdering Facility: [facility] Address: [address] [address] Performed By: #### 5 8410-2 ####[facility] [id number] [address] [place] Hemoglobin (Bld) [Mass/Vol] 10.2 g/dL Low 11.5-15.5 [facility] Comment on above: Order Comment: Speci men Type: BLOOD SPECIMENOrdering Facility: [facility] Address: [address] [address] Performed By: #### 5 8410-2 ####[facility] [id number] [address] [place] MCH (RBC) [Entitic mass] 28.0 pg Normal 26.0-34.0 [facility] Comment on above: Order Comment: Speci men Type: BLOOD SPECIMENOrdering Facility: [facility] Address: [address] [address] Performed By: #### 5 8410-2 ####[facility] LABORATORYIA [id number] [place] [address] [place] MCHC (RBC) [Mass/Vol] 31.0 g/dL Normal 30.5-36.0 [facility] Comment on above: Order Comment: Speci men Type: BLOOD SPECIMENOrdering Facility: [facility] Address: [address] [place] [address] Performed By: #### 5 8410-2 ####[facility] LABORATORYIA [id number] [place] [address] [place] MCV (RBC) [Entitic vol] 90.4 fL Normal 80.0-100.0 [facility] Comment on above: Order Comment: Speci men Type: BLOOD SPECIMENOrdering Facility: [facility] Address: [address] [place] [address] Performed By: #### 5 8410-2 ####[facility] [id number] [place] [address] [place] Nucleated RBC (Bld) [#/Vol] 10*3/uL Normal <0.01 [facility] Comment on above: Order Comment: Speci men Type: BLOOD SPECIMENOrdering Facility: [facility] Address: [address] [place] [address] Performed By: #### 5 8410-2 ####[facility] [id number] [place] [address] [place] Platelet mean volume (Bld) [Entitic vol] 10.6 fL Normal 9.0-12.7 [facility] Comment on above: Order Comment: Speci men Type: BLOOD SPECIMENOrdering Facility: [facility] Address: [address] [place] [address] Performed By: #### 5 8410-2 ####[facility] [id number] [place] [address] [place] Platelets (Bld) [#/Vol] 263 10*3/uL Normal 150-400 [facility] Comment on above: Order Comment: Speci men Type: BLOOD SPECIMENOrdering Facility: [facility] Address: [facility] [address] Performed By: #### 5 8410-2 ####[facility] LABORATORYIA [id number] [place] [address] [facility] RBC (Bld) [#/Vol] 3.64 10*6/uL Low 3.90-5.20 [facility] Comment on above: Order Comment: Speci men Type: BLOOD SPECIMENOrdering Facility: [facility] Address: [address] [address] Performed By: #### 5 8410-2 ####[facility] [id number] [place] [id number] [facility] WBC (Bld) [#/Vol] 13.19 10*3/uL High 3.70-11.00 [facility] Comment on above: Order Comment: Speci men Type: BLOOD SPECIMENOrdering Facility: [facility] Address: [address] [address] Performed By: #### 5 8410-2 ####[facility] [id number] [address] CONSULT PROGon 01-11-2023 CONSULT PROG HNO ID: [id number] Author: Agustin Clark RPh Service: Pharmacy Author Type: Pharmacist Type: Consult Progress Note Filed: 01/11/2023 11:22 AM Note Text: PHARMACY VANCOMYCIN DOSING NOTE Patient Name: Mitchell Brooks Admission Date: 01/10/2023 Date of Consult: 01/11/2023 Time of Consult: 11:20 AM Indication: Skin/Soft tissue infection Goal Range: 10-20 mcg/mL RECOMMENDATIONS/PLAN : Pharmacy consulted for vancomycin dosing for Mitchell Brooks, a 47 year old female. 1. Vancomycin therapy has been discontinued. Vancomycin level(s) have been discontinued: Yes. Pharmacy vancomycin dosing service will sign off. Thank you for allowing us to participate in this patient's care. Please contact pharmacy if there are questions. Agustin Clark RPh Normal [facility] ECG COMPLETEon 01-11-2023 ECG COMPLETE Ventricular Rate : 143 BPM Atrial Rate : 140 BPM P-R Interval : 176 ms QRS Duration : 77 ms Q-T Interval : 355 ms QTC Calculation(Bazett) : 548 ms Calculated R [place] : 42 degrees Calculated T [place] : -67 degrees Atrial fibrillation Confirmed by JOSE M DESAI MD ([id number]) on 01/14/2023 12:51:31 PM NAME : MITCHELL BROOKS PID : [id number] : 1975 Gender : Female Race : ORD : [id number] Procedure Date : Jan 11 2023 14:12:20 Edit Date : Jan 14 2023 12:51:34 Diagnosis: Atrial fibrillation Confirmed by JOSE M DESAI MD ([id number]) on 01/14/2023 12:51:31 PM Test Reason : Arrhythmia Location : 300 : EKG 506 Overread By : JOSE M DESAI MD Edited By : JOSE M DESAI MD Referred By : ROMÁN CHANDLER Acquired by : LANDRY SCOTT [facility] THERAPY NT 01-11-2023 THERAPY NT HNO ID: [id number] Author: Chapis Forde PT, DPT Service: ? Author Type: Physical Therapist Type: Therapy (PT/OT/Speech/Resp) Filed: 01/11/2023 4:13 PM Note Text: Physical Therapy Evaluation SERVICE DATE: 01/11/2023 SERVICE TIME: 1459 to 1540 ROOM: [place] [address] Recommended Discharge Disposition: Home PT Recommended Discharge Disposition Comments: home PT for home safety assessment Anticipated Discharge Needs: Physical Assist at Home Physical Assist at Home for: Cleaning, Laundry, Meals, Stairs, Transportation, Shopping Recommended Discharge Equipment: No equipment needs anticipated PT 6 Clicks Score: 23 Current Hospital Course: Admitted 01/10 for chills, generalized weakness. Placed on sepsis carepath. Flipped into afib 01/11. PT/OT consult. Reason for Hospital Admission: chills, generalized weakness Relevant Past Medical History: Sepsis, obesity, hypothyroidism, tobacco use disorder, HTN, asthma, bipolar depression, L LE cellulitis, fever, cervical disc disorder with myelopathy, LBP, anemia Response to Therapy Interventions: Good Participation in Activities Assessment Comments: Per RN, christine for PT to minimally mobilize pt. Pt educated pt to only mobilize to bathroom given flip into afib today. Pt verbalized understanding. Pt with good mobility requiring only SBA. Continued Skilled Needs Due to: Functional Mobility/Skill Impairments Physical Therapy Problem List: Decreased Activity Tolerance, Decreased Strength, Functional Mobility Impairment, Balance Impaired Treatment Interventions: Education, Energy Conservation Training, Strengthening, Functional Mobility Training, Balance Training, Neuromuscular Re-education Home Environment Patient Lives With: Spouse Assistance Available: 24-Hour Entry To Home: Stairs, With Rail Number Of Stairs Into Home: 3 Number Of Stairs To Bed/Bath: 0 Tub/Shower Type: tub shower, grab bar, shower chair Laundry: assists Equipment Owned: Cane, Walker- Wheeled, Rollator, Shower Chair, Grab Bars- Shower Prior Functional Level: Required Assistance, Within Functional Limits Assistance Required With: Cleaning, Laundry, Meals Prior Functional Level Comments: Pt reports typically IND with ADLs and most IADLs. + drives. Pt reports no recent falls. Ambulatory with cane typically in the home, ambulatory with WW outside the home. Able to navigate the stairs, however with increased time. typically stands behind her. Sleeps in recliner chair. Patient Report: They said I went to afib, when do you think cardiology will be here? today or tomorrow?" CURRENT FUNCTIONAL STATUS: Most recent performance Current Functional Mobility Assist Level Additional Information Rolling Supine to Sit Sit to Supine Scooting Sit to Stand Stand By Assistance Stand to Sit Stand By Assistance Bed to Chair Toilet/Commode Stand By Assistance Gait Stand By Assistance Gait Device: Wheeled Walker Gait Distance (feet): 2x15' Stairs Curb Step Car Transfer Blank choudhury indicate activity not attempted General Deviations/Observati ons: Mary decreased, Flexed trunk posture, Wide base of support, Step length decreased, UE weight bearing on assistive device excessive Balance: Static Sitting, Dynamic Sitting, Static Standing, Dynamic Standing Static Sitting Balance: Good Patient able to maintain balance without handhold support, limited postural sway Dynamic Sitting Balance: Good Patient accepts moderate challenge, able to maintain balance while picking up object off floor Static Standing Balance: Fair Patient able to maintain balance with handhold support, may require occasional minimal assistance Dynamic Standing Balance: Fair Patient accepts minimal challenge, able to maintain balance while turning head/trunk -HLM: 6: Walk 10 steps or more Learning/Educational Needs: Discharge Plan, Functional Activities/Mobility Goals for Plan of Care: Patient/Caregiver Goals: Go Home Goals: Patient will demonstrate understanding of importance of mobility during hospital stay and resolve all functional needs identified., Patient will demonstrate progress with functional mobility to allow safe discharge to home with available support and/or physical assistance. Rehab Potential: Good Patient will be discontinued from Physical Therapy when no further skilled needs are identified in this setting. PLAN: PT Frequency: 3 times per week Plan of Care developed with: Patient TREATMENT INTERVENTIONS: Therapy Diagnosis: Reduced mobility-other, Abnormalities of gait and mobility-other Interventions Provided: Evaluation, Gait Training (30486), Therapeutic Activity (14613) $ Evaluation-Low (19748) Billed Units: 1 unit Therapeutic Activity (55373) Treatment Minutes: 10 $ Therapeutic Activity (39004) Billed Units: 1 unit Gait Training (76731) Treatment Minutes: 16 $ Gait Training (83929) Billed Units: 1 unit Training AND Education Pro (more content not included)... Normal [facility] Basic metabolic 2000 panelon 01-10-2023 Anion gap [Moles/Vol] 11 mmol/L Normal 9-18 [facility] Comment on above: Order Comment: Speci men Type: BLOOD SPECIMENOrdering Facility: [facility] Address: [address] [address] Performed By: #### 2 4321-2 ####[facility] LABORATORYCLIA [id number] [place] [address] [place] Calcium [Mass/Vol] 8.8 mg/dL Normal 8.5-10.2 [facility] Comment on above: Order Comment: Speci men Type: BLOOD SPECIMENOrdering Facility: [facility] Address: [address] [address] Performed By: #### 2 4321-2 ####[facility] LABORATORYCLIA [id number] [place] [address] [place] Chloride [Moles/Vol] 101 mmol/L Normal 97-105 [facility] Comment on above: Order Comment: Speci men Type: BLOOD SPECIMENOrdering Facility: [facility] Address: [address] [address] Performed By: #### 2 4321-2 ####[facility] LABORATORYCLIA [id number] [place] [address] [place] CO2 [Moles/Vol] 27 mmol/L Normal 22-30 [facility] Comment on above: Order Comment: Speci men Type: BLOOD SPECIMENOrdering Facility: [facility] Address: [address] [place] [address] Performed By: #### 2 4321-2 ####[facility] [id number] [place] [address] [place] Creatinine [Mass/Vol] 0.67 mg/dL Normal 0.58-0.96 [facility] Comment on above: Order Comment: Speci men Type: BLOOD SPECIMENOrdering Facility: [facility] Address: [address] [place] [address] Performed By: #### 2 4321-2 ####[facility] [id number] [address] [place] ESTIMATED GLOMERULAR FILTRATION RATE 108 mL/min/1.73m??? Normal >=60 [facility] Comment on above: Order Comment: Speci men Type: BLOOD SPECIMENOrdering Facility: [facility] Address: [address] [place] [address] Result Comment: Carmen mated Glomerular Filtration Rate (eGFR) is calculated using the 2020 CKD-EPI creatinine equation. This equation utilizes serum creatinine, sex, and age as parameters. The creatinine assay has traceable calibration to isotope dilution-mass spectrometry. Refer to KDIGO guidelines for clinical interpretation. In patients with unstable renal function, e.g. those with acute kidney injury, the eGFR may not accurately reflect actual GFR. Performed By: #### 2 4321-2 ####[facility] LABORATORYIA [id number] [place] [id number] [place] Glucose [Mass/Vol] 111 mg/dL High 74-99 [facility] Comment on above: Order Comment: Speci men Type: BLOOD SPECIMENOrdering Facility: [facility] Address: [address] [place] [address] Result Comment: The [place] [employer] (ADA) provides guidance for cutoff values for fasting glucose and random glucose. The ADA defines fasting as no caloric intake for at least 8 hours. Fasting plasma glucose results between 100 to 125 mg/dL indicate increased risk for diabetes (prediabetes). Fasting plasma glucose results greater than or equal to 126 mg/dL meet the criteria for diagnosis of diabetes. In the absence of unequivocal hyperglycemia, results should be confirmed by repeat testing. In a patient with classic symptoms of hyperglycemia or hyperglycemic crisis, random plasma glucose results greater than or equal to 200 mg/dL meet the criteria for diagnosis of diabetes. Reference: Standards of Medical Care in Diabetes 2016, [place] [employer]. Diabetes Care. 2016.39(Suppl 1). Performed By: #### 2 4321-2 ####[facility] LABORATORYCLIA [id number] [place] [address] [place] Potassium [Moles/Vol] 3.9 mmol/L Normal 3.7-5.1 [facility] Comment on above: Order Comment: Speci men Type: BLOOD SPECIMENOrdering Facility: [facility] Address: [address] [place] [address] Performed By: #### 2 4321-2 ####[facility] [id number] [place] [address] [place] Sodium [Moles/Vol] 139 mmol/L Normal 136-144 [facility] Comment on above: Order Comment: Speci men Type: BLOOD SPECIMENOrdering Facility: [facility] Address: [address] [address] Performed By: #### 2 4321-2 ####[facility] LABORATORYCLIA [id number] [place] [address] [place] Urea nitrogen [Mass/Vol] 9 mg/dL Normal 7-21 [facility] Comment on above: Order Comment: Speci men Type: BLOOD SPECIMENOrdering Facility: [facility] Address: [address] [address] Performed By: #### 2 4321-2 ####[facility] LABORATORYCLIA [id number] [facility] [place] [address] [place] CBC W Auto Differential pane l (Bld)on 01-10-2023 Basophils (Bld) [#/Vol] 0.12 10*3/uL High <0.11 [facility] Comment on above: Order Comment: Speci men Type: BLOOD SPECIMENOrdering Facility: [facility] Address: [address] [place] [address] Performed By: #### 5 7021-8 ####[facility] [id number] [address] [place] Basophils/100 WBC (Bld) 0.4 % Normal [facility] Comment on above: Order Comment: Speci men Type: BLOOD SPECIMENOrdering Facility: [facility] Address: [address] [place] [address] Performed By: #### 5 7021-8 ####[facility] [id number] [address] [place] Differential cell count method Nom (Bld) Auto Normal [facility] Comment on above: Order Comment: Speci men Type: BLOOD SPECIMENOrdering Facility: [facility] Address: [address] [place] [address] Performed By: #### 5 7021-8 ####[facility] [id number] [place] [address] [place] Eosinophils (Bld) [#/Vol] 0.16 10*3/uL Normal <0.46 [facility] Comment on above: Order Comment: Speci men Type: BLOOD SPECIMENOrdering Facility: [facility] Address: [address] [place] [address] Performed By: #### 5 7021-8 ####[facility] [id number] [address] [place] Eosinophils/100 WBC (Bld) 0.5 % Normal [facility] Comment on above: Order Comment: Speci men Type: BLOOD SPECIMENOrdering Facility: [facility] Address: [address] [address] Performed By: #### 5 7021-8 ####[facility] [id number] [place] [address] [place] Erythrocyte distribution width (RBC) [Ratio] 16.1 % High 11.5-15.0 [facility] Comment on above: Order Comment: Speci men Type: BLOOD SPECIMENOrdering Facility: [facility] Address: [address] [address] Performed By: #### 5 7021-8 ####[facility] [id number] [place] [address] [place] Hematocrit (Bld) [Volume fraction] 35.7 % Low 36.0-46.0 [facility] Comment on above: Order Comment: Speci men Type: BLOOD SPECIMENOrdering Facility: [facility] Address: [address] [address] Performed By: #### 5 7021-8 ####[facility] [id number] [place] [address] [place] Hemoglobin (Bld) [Mass/Vol] 11.3 g/dL Low 11.5-15.5 [facility] Comment on above: Order Comment: Speci men Type: BLOOD SPECIMENOrdering Facility: [facility] Address: [address] [address] Performed By: #### 5 7021-8 ####[facility] [id number] [place] [address] [place] Immature granulocytes (Bld) [#/Vol] 0.34 10*3/uL High <0.10 [facility] Comment on above: Order Comment: Speci men Type: BLOOD SPECIMENOrdering Facility: [facility] Address: [address] [address] Performed By: #### 5 7021-8 ####[facility] [id number] [place] [address] [place] Immature granulocytes/100 WBC (Bld) 1.2 % Normal [facility] Comment on above: Order Comment: Speci men Type: BLOOD SPECIMENOrdering Facility: [facility] Address: [address] [address] Performed By: #### 5 7021-8 ####[facility] LABORATORYCLIA [id number] [place] [address] [place] Lymphocytes (Bld) [#/Vol] 1.21 10*3/uL Normal 1.00-4.00 [facility] Comment on above: Order Comment: Speci men Type: BLOOD SPECIMENOrdering Facility: [facility] Address: [address] [address] Performed By: #### 5 7021-8 ####[facility] LABORATORYIA [id number] [address] [place] Lymphocytes/100 WBC (Bld) 4.2 % Normal [facility] Comment on above: Order Comment: Speci men Type: BLOOD SPECIMENOrdering Facility: [facility] Address: [address] [address] Performed By: #### 5 7021-8 ####[facility] LABORATORYIA [id number] [address] [place] MCH (RBC) [Entitic mass] 28.2 pg Normal 26.0-34.0 [facility] Comment on above: Order Comment: Speci men Type: BLOOD SPECIMENOrdering Facility: [facility] Address: [address] [address] Performed By: #### 5 7021-8 ####[facility] LABORATORYIA [id number] [address] [place] MCHC (RBC) [Mass/Vol] 31.7 g/dL Normal 30.5-36.0 [facility] Comment on above: Order Comment: Speci men Type: BLOOD SPECIMENOrdering Facility: [facility] Address: [address] [address] Performed By: #### 5 7021-8 ####[facility] LABORATORYIA [id number] [place] [address] [place] MCV (RBC) [Entitic vol] 89.0 fL Normal 80.0-100.0 [facility] Comment on above: Order Comment: Speci men Type: BLOOD SPECIMENOrdering Facility: [facility] Address: [address] [address] Performed By: #### 5 7021-8 ####[facility] [id number] [place] [address] [place] Monocytes (Bld) [#/Vol] 1.32 10*3/uL High <0.87 [facility] Comment on above: Order Comment: Speci men Type: BLOOD SPECIMENOrdering Facility: [facility] Address: [address] [address] Performed By: #### 5 7021-8 ####[facility] [id number] [address] [place] Monocytes/100 WBC (Bld) 4.5 % Normal [facility] Comment on above: Order Comment: Speci men Type: BLOOD SPECIMENOrdering Facility: [facility] Address: [address] [address] Performed By: #### 5 7021-8 ####[facility] [id number] [place] [address] [place] Neutrophils (Bld) [#/Vol] 25.97 10*3/uL High 1.45-7.50 [facility] Comment on above: Order Comment: Speci men Type: BLOOD SPECIMENOrdering Facility: [facility] Address: [address] [address] Performed By: #### 5 7021-8 ####[facility] [id number] [address] [id number] [place] Neutrophils/100 WBC (Bld) 89.2 % Normal [facility] Comment on above: Order Comment: Speci men Type: BLOOD SPECIMENOrdering Facility: [facility] Address: [address] Performed By: #### 5 7021-8 ####[facility] [id number] [place] [address] [place] Nucleated RBC (Bld) [#/Vol] 0.02 10*3/uL High <0.01 [facility] Comment on above: Order Comment: Speci men Type: BLOOD SPECIMENOrdering Facility: [facility] Address: [address] [address] Performed By: #### 5 7021-8 ####[facility] [id number] [address] [place] [address] [place] Nucleated RBC/100 WBC (Bld) [Ratio] 0.1 /100 WBC Normal [facility] Comment on above: Order Comment: Speci men Type: BLOOD SPECIMENOrdering Facility: [facility] Address: [address] Performed By: #### 5 7021-8 ####[facility] [id number] [place] [address] [place] Platelet mean volume (Bld) [Entitic vol] 10.7 fL Normal 9.0-12.7 [facility] Comment on above: Order Comment: Speci men Type: BLOOD SPECIMENOrdering Facility: [facility] Address: [address] Performed By: #### 5 7021-8 ####[facility] [id number] [place] [address] [place] Platelets (Bld) [#/Vol] 309 10*3/uL Normal 150-400 [facility] Comment on above: Order Comment: Speci men Type: BLOOD SPECIMENOrdering Facility: [facility] Address: [address] Performed By: #### 5 7021-8 ####[facility] LABORATORYIA [id number] [address] [address] [place] RBC (Bld) [#/Vol] 4.01 10*6/uL Normal 3.90-5.20 [facility] Comment on above: Order Comment: Speci men Type: BLOOD SPECIMENOrdering Facility: [facility] Address: [place] [address] Performed By: #### 5 7021-8 ####[facility] LABORATORYCLIA [id number] [place] [address] [facility] WBC (Bld) [#/Vol] 29.12 10*3/uL High 3.70-11.00 [facility] Comment on above: Order Comment: Speci men Type: BLOOD SPECIMENOrdering Facility: [facility] Address: [place] [address] Performed By: #### 5 7021-8 ####[facility] LABORATORYCLIA [id number] [place] [address] [facility] CONSULTon 01-10-2023 CONSULT HNO ID: [id number] Author: Myke Ross MD Service: Infectious Disease Author Type: Physician Type: Consults Filed: 01/10/2023 11:05 AM Note Text: INFECTIOUS DISEASE - INITIAL CONSULT Service Date: January 10, 2023 Service Time: 8:32 AM Patient Name: Mitchell Brooks Date of : 1975 SUBJECTIVE: Source of information: Patient and EMR provided Provider requesting the consultation: Chrissy Novoa MD Chief Complaint / Reason for Consult: Sepsis likely due to left lower leg cellulitis" HPI: Mitchell Brooks is a 47 year old female with history of obesity, reported history of hx of right thigh abscess/necrotizing infection complicated by septic shock secondary to MSSA in Jul 2013, IBS, bipolar/depression, HTN, chronic pain, asthma, COPD, lymphedema, hypothyroidism who presents with a chief complaint of chills and weakness. Symptoms started on the Monday prior to admission. Noted severe shaking chills/tremors and extreme weakness. Describes some nausea and diarrhea 1 day prior to admission. Patient denies any shortness of breath, chest pain, fevers. No urinary or bowel symptoms. Per admission HANDP patient was noted to have erythema of the left leg. On admission patient was afebrile with a leukocytosis. Blood pressure and other vitals were stable. Labs revealed a white count of 28.66, neutrophil count 26.58, glucose of 111, creatinine 0.75, LFTs within normal limits. Lactate was 2.3 and improved to 1.4 after fluids. Blood cultures were obtained and are pending. COVID-19 testing on admission was negative. CT abdomen and pelvis with IV contrast showed left common iliac lymphadenopathy up to 2 cm thought to be reactive or malignant, colon diverticulosis, and left ovarian cyst. Chest x-ray was negative. Allergies: ALLERGIES Allergen Reactions Aleve [Naproxen Sod* Itching itch diffuse Ciprofloxacin Hives Codeine Itching Ibuprofen Rash Morphine Anaphylaxis SOB, throat swelled shut Vicodin [Hydrocodon* Anaphylaxis 06/19/2015 taking percocet without any side effects reported Zanaflex [Tizanidin* Rash Current Antibiotics: Antibiotic / Dose / Interval Dates 1) IV pip/tazo 3.375 g every 6 hours 01/10- 2) IV vancomycin 2 g every 12 hours 01/10- 3) 4) 5) Current Medications: Current Facility-Administere d Medications Medication Dose Route Frequency miconazole 2 % 1 application topical powder 1 application TOPICAL BID carBAMazepine 100 mg tab(s) (TEGretol) 100 mg ORAL DAILY carBAMazepine 200 mg tab(s) (TEGretol) 200 mg ORAL AT BEDTIME hydrOXYzine HCl 25 mg tab(s) (ATARAX) 25 mg ORAL QID PRN benztropine 0.5 mg tab(s) (COGENTIN) 0.5 mg ORAL BID brexpiprazole 0.25 mg tab(s) (REXULTI) 0.25 mg ORAL DAILY albuterol 2.5 mg /3 mL (0.083 %) 2.5 mg (PROVENTIL) 2.5 mg INHALATION q 4 H PRN colestipol 1 g tab(s) (COLESTID) 1 g ORAL BID famotidine 20 mg tab(s) (PEPCID) 20 mg ORAL BID montelukast 10 mg tab(s) (SINGULAIR) 10 mg ORAL AT BEDTIME pantoprazole DR 40 mg tab(s) (PROTONIX) 40 mg ORAL BID methocarbamol 500 mg tab(s) (ROBAXIN) 500 mg ORAL TID PRN levothyroxine 50 mcg tab(s) (SYNTHROID) 50 mcg ORAL DAILY gabapentin 600 mg cap(s) (NEURONTIN) 600 mg ORAL q 6 H NaCl 0.9% iv flush bag 20 mL INTRAVENOUS PRN NaCl 0.9% iv infusion 75 mL/hr INTRAVENOUS CONTINUOUS acetaminophen 650 mg tab(s) (TYLENOL) 650 mg ORAL q 6 H PRN trospium 20 mg tab(s) (SANCTURA) 20 mg ORAL BID AC piperacillin-tazobac hoffman iv piggyback 3.375 g in dextrose (iso-osmotic) 50 mL (ZOSYN) 3.375 g INTRAVENOUS q 6 H vancomycin dosing and monitoring per pharmacy OTHER As Directed vancomycin 1.5 g in NaCl 0.9% 250 mL (VANCOCIN) 1.5 g INTRAVENOUS q 12 HR Outpatient Medications (Listed previous to this encounter): No current facility-administere d medications on file prior to encounter. Current Outpatient Medications on File Prior to Encounter Medication Sig benztropine (COGENTIN) 0.5 mg tablet Take 0.5 mg by mouth twice daily. carBAMazepine (TEGRETOL) 200 mg tablet Take 100 mg by mouth once daily. At noon carBAMazepine (TEGRETOL) 200 mg tablet Take 200 mg by mouth daily at bedtime. colestipol (COLESTID) 1 gram tablet Take 1 g by mouth twice daily. hydrOXYzine HCl (ATARAX) 25 mg tablet Take 25 mg by mouth four times daily as needed. pantoprazole DR (PROTONIX) 40 mg tablet Take 40 mg by mouth twice daily. brexpiprazole (REXULTI) 0.25 mg tablet Take 0.25 mg by mouth once daily. methocarbamol (ROBAXIN) 500 mg tablet Take 1 tablet by mouth three times daily as needed. gabapentin (NEURONTIN) 300 mg capsule Take 1 capsule by mouth daily at bedtime. (Patient taking differently: Take 300 mg by mouth three times daily.) famotidine (PEPCID) 20 mg tablet Take 1 tablet by mouth twice daily. Levothyroxine 50 mcg cap Take 1 capsule by mouth once daily. Multivits,CalciumAND Minerals-FA 267 mcg tab Take 1 tablet by mouth once daily. albuterol (PROVENTIL) 2.5 mg /3 mL (0.083 (more content not included)... Normal [facility] CONSULT PROGon 01-10-2023 CONSULT PROG HNO ID: [id number] Author: Dorothy Steward RPh Service: Pharmacy Author Type: Pharmacist Type: Consult Progress Note Filed: 01/10/2023 8:24 AM Note Text: PHARMACY VANCOMYCIN DOSING NOTE Patient Name: Mitchell Brooks Admission Date: 01/10/2023 Date of Consult: 01/10/2023 Time of Consult: 8:23 AM Indication: Skin/Soft tissue infection Goal Range: 10-20 mcg/mL RECOMMENDATIONS/PLAN : Pharmacy consulted for vancomycin dosing for Mitchell Brooks, a 47 year old female. 1. Patient is currently ordered Vancomycin 2 g q12h. Today is day 1 of therapy. 2. No vancomycin level has been drawn for this dosing regimen. 3. Will decrease vancomycin to 1.5 g with a dosing interval of q12h given SSTI indication. 4. The next vancomycin level will be ordered for 01/12, before 5th dose due to BMI 64 kg/m2, unless clinically indicated sooner. (Pharmacy will order) We will follow patient renal function, vancomycin levels and doses with you during the course of therapy. Additional recommendations will appear in follow up notes. If you have any questions, please contact pharmacy at [phone]. Age: [age] year old Allergies: ALLERGIES Allergen Reactions Aleve [Naproxen Sod* Itching itch diffuse Ciprofloxacin Hives Codeine Itching Ibuprofen Rash Morphine Anaphylaxis SOB, throat swelled shut Vicodin [Hydrocodon* Anaphylaxis 06/19/2015 taking percocet without any side effects reported Zanaflex [Tizanidin* Rash Last 3 Encounter Wt Readings: Date: Wt: 01/09/2023 159.9 kg (352 lb 8.3 oz) 01/09/2023 161.5 kg (356 lb) 10/24/2022 161 kg (354 lb 15.1 oz) Last 1 Encounter Ht Readings: Date: Ht: 01/09/2023 157.5 cm (5' 2") CrCl: 152.4 mL/min Temp (24hrs), Av.9 ?C (98.4 ?F), Min:36.8 ?C (98.3 ?F), Max:36.9 ?C (98.4 ?F) - Current Temp: 36.8 ?C (98.3 ?F) Labs BUN (mg/dL) Date Value 01/10/2023 9 01/09/2023 9 10/24/2022 11 Creatinine (mg/dL) Date Value 01/10/2023 0.67 01/09/2023 0.75 10/24/2022 0.62 WBC (k/uL) Date Value 01/10/2023 29.12 (H) 01/09/2023 28.66 (H) 10/24/2022 9.61 Vancomycin Levels: Vancomycin, result (ug/mL) Date/Time Value 07/21/2013 1155 21.8 (H) 07/20/2013 0703 22.8 (H) Dorothy Steward [facility] Normal [facility] HISTORY PHYSICALon HISTORY PHYSICAL HNO ID: [id number] Author: Leigh Ann Valerio APRN.CNP Service: Hospital Medicine Author Type: Nurse Practitioner Type: HANDP Filed: 01/10/2023 3:47 AM Note Text: DEPARTMENT OF HOSPITAL MEDICINE HISTORY AND PHYSICAL EXAM SERVICE DATE: 01/10/2023 Code Status: Not on file SERVICE TIME: 3:18 AM Primary Care Physician: No primary care provider on file. NIGHT AND WEEKEND COVERAGE: [place] COVERAGE: Days: [phone], please contact via [employer] Nights: [phone] - floor: please page Hospitalist night cover [phone] - 4th floor: please page Hospitalist night cover [phone] - 5th floor: please page Hospitalist night cover [phone] Subjective CHIEF COMPLAINT: chills, generalized weakness HPI: This is a 47 year old female with PMH of obesity, necrotizing fascitis (2012), septic shock, IBS, bipolar depression, HTN, chronic pain, asthma, copd, lymphedema, hypothyroidism, who presents with chills and weakness. Reports sudden onset Monday of chills and weakness. States shaking so bad Monday dentures were clicking in her mouth. Reports chronic cough, unchanged from baseline. Denies URI symptoms. Reports some redness to LLE but denies pain. Some nausea and loose stool a couple days ago but none since. Denies dysuria. On arrival to [facility] T 101.1, HR 127 and p ox 91%. Oxygen applied, 2LNC. WBC 28, initial lactate 2.3, improved to 1.4 after fluids. Blood and urine cultures sent. Patient started empirically on zosyn PAST MEDICAL HISTORY Diagnosis Date RAFIA (acute kidney injury) (HCC) 07/20/2013 Baseline Cr 0.58 07/20 Cr 1.6 Possibly 2/2 sepsis (organ damage) as pt received 8L IVFs Making urine appropriately Plan: IVFs Anxiety Asthma Cervical spondylosis Chronic pain Debility HTN (hypertension) Hypothyroid Irritable bowel syndrome Lymphedema Morbid obesity (HCC) Necrotizing fasciitis ([facility]) 08/14/2012 thigh wound Septic shock ([facility]) 07/20/2013 On Dopamine, vasopressine and NE upon admission Given solumedrol 125mg IV at OSH Given 8L at OSH Started on meropenem, ceftriaxone, vanc and clindamycin at OSH (one dose of each) ? Necrotizing fascitis? Plan: Continue pressors Bolus NS 500cc once Hydrocortisone 100mg q8hrs Start vanc, clinda and zosyn Gen Surgery consulted --> to the OR for debridement. PAST SURGICAL HISTORY Procedure Laterality Date PAST SURGICAL HISTORY OF c section x 2 PAST SURGICAL HISTORY OF 2013 tracheostomy PAST SURGICAL HISTORY OF Right 2013 debridement of thigh wound TONSILLECTOMY HX TUBAL LIGATION, FAMILY HISTORY Problem Relation Age of Onset Diabetes Father Heart Paternal Grandmother Heart Paternal Grandfather other (liver cancer [Other]) Other mother Social History Tobacco Use Smoking status: Every Day Packs/day: 0.50 Years: 25.00 Pack years: 12.50 Types: Cigarettes Smokeless tobacco: Never Tobacco comments: down to maybe 6 cigarettes through the day Vaping Use Vaping Use: Never used Substance Use Topics Alcohol use: No Drug use: No PRIOR TO ADMISSION MEDICATIONS: benztropine (COGENTIN) 0.5 mg tablet, Take 0.5 mg by mouth twice daily., Disp: , Rfl: , 01/09/2023 carBAMazepine (TEGRETOL) 200 mg tablet, Take 100 mg by mouth once daily. At noon, Disp: , Rfl: , 01/09/2023 carBAMazepine (TEGRETOL) 200 mg tablet, Take 200 mg by mouth daily at bedtime., Disp: , Rfl: , 01/09/2023 colestipol (COLESTID) 1 gram tablet, Take 1 g by mouth twice daily., Disp: , Rfl: , 01/09/2023 hydrOXYzine HCl (ATARAX) 25 mg tablet, Take 25 mg by mouth four times daily as needed., Disp: , Rfl: , 01/09/[address] (PROTONIX) 40 mg tablet, Take 40 mg by mouth twice daily., Disp: , Rfl: , 01/09/2023 brexpiprazole (REXULTI) 0.25 mg tablet, Take 0.25 mg by mouth once daily., Disp: , Rfl: , 01/09/2023 methocarbamol (ROBAXIN) 500 mg tablet, Take 1 tablet by mouth three times daily as needed., Disp: 90 tablet, Rfl: 0, 01/09/2023 gabapentin (NEURONTIN) 300 mg capsule, Take 1 capsule by mouth daily at bedtime. (Patient taking differently: Take 300 mg by mouth three times daily.), Disp: 30 capsule, Rfl: 0, 01/09/2023 famotidine (PEPCID) 20 mg tablet, Take 1 tablet by mouth twice daily., Disp: 60 tablet, Rfl: 12, 01/09/2023 Levothyroxine 50 mcg cap, Take 1 capsule by mouth once daily., Disp: 30 capsule, Rfl: 12, 01/09/2023 Multivits,CalciumAND Minerals-FA 267 mcg tab, Take 1 tablet by mouth once daily., Disp: , Rfl: , 01/09/2023 albuterol (PROVENTIL) 2.5 mg /3 mL (0.083 %) nebulizer solution, Use 2.5 mg via nebulizer every 4 hours as needed for wheezing/shortness of breath., Disp: , Rfl: , Unknown montelukast (SINGULAIR) 10 mg tablet, Take 10 mg by mouth once daily., Disp: , Rfl: , 01/08/2023 oxybutynin XL (DITROPAN XL) 5 mg 24 hr tablet, TAKE 1 TABLET BY MOUTH DAILY AT BEDTIME for overactive bladder, Disp: , Rfl: , 01/08/2023 glucosamine HCl (GLUCOSAMINE, BULK, MISC), , Disp: , Rfl: , Unknown acetaminophen ( (more content not included)... [facility] NURSING PROGon 01-10-2023 NURSING PROG HNO ID: [id number] Author: Patricia Allemeier, RN Service: Nursing Author Type: Registered Nurse Type: Nursing Progress Note Filed: 01/10/2023 4:39 PM Note Text: Other: 0900 Pt in bed, A+O x3 . Temp elevated 39.5, HR 116, BP 106/40 manually. Pt c/o generalized pain as well as left lower extremity redness. Positive pedal pulses bilat. Redness and warm noted to LLE. Dr. Novoa notified and in to assess pt. call light with in reach. [phone] Pt sister, Marsha Estevez [phone], called asking for update on condition- pt ok'd speaking to her and update provided by RN. [facility] NURSING PROG HNO ID: [id number] Author: Sis Laird RN Service: Nursing Author Type: Registered Nurse Type: Nursing Progress Note Filed: 01/10/2023 8:15 AM Note Text: Transfer Note: Patient transferred into room/unit 506 from outside hospital in stable condition. Actions taken: patient oriented to room, safety precautions. patient instructed on hospital's no smoking policy. nicotine patch offered, patient refused. [facility] XR KNEE 2V AP/LAT RTon 01-10 XR KNEE 2V AP/LAT RT * * *Final Report* * * DATE OF EXAM: Jan 10 2023 11:32AM VHX 5207 - XR KNEE 2V AP/LAT RT / PROCEDURE REASON: Joint pain, knee * * * * Physician Interpretation * * * * XR KNEE 2V AP/LAT RT PROVIDED HISTORY: Joint pain, knee COMPARISON: 08/18/2020 TECHNIQUE: 2 views right knee RESULT: Severe narrowing of the medial compartment and mild patellofemoral compartment narrowing. Marginal osteophytes. No joint effusion or acute fractures seen IMPRESSION: Severe degenerative narrowing at the medial compartment of the right knee. Marginal osteophytes Portable Track Crew Chief: PSCB Transcribe Date/Time: Jan 10 2023 4:19P Dictated by : ROSI GARCIA MD This examination was interpreted and the report reviewed and electronically signed by: ROSI GARCIA MD on Jan 10 2023 4:20PM EST [id number] CN [facility] Absolute lymphocyte countOrd ered By: Dr. Watson on 11-08-2022 Lymphocytes Auto (Unsp spec) [#/Vol] 2.52 10*3/uL 0.83-4.51 [facility] Basophil percentageOrdered B y: Dr. Watson on 11-08-2022 Basophils/100 WBC (Bld) 0.8 % 0-1 [facility] Bilirubin [Mass/Vol] 0.30 mg/dL 0.20-1.00 [facility] Comment on above: For patients on eltr ombopag therapy, use of Dimension [place] TBIL is not recommended. Chloride [Moles/Vol] 103 mmol/L 98-107 [facility] Eosinophils/100 WBC (Bld) 1.8 % 0-5 [facility] Glucose [Mass/Vol] 101 mg/dL 74-106 [facility] Comment on above: Fasting Glucose resu lt from 100 to 125 mg/dL suggests IMPAIRED HOMEOSTASIS per A.D.A. criteria. Neutrophils (Bld) [#/Vol] 5.5 10*3/uL 2.0-7.7 [facility] Neutrophils/100 WBC (Bld) 62.5 % 47-70 [facility] Potassium [Moles/Vol] 4.1 mmol/L 3.5-5.1 [facility] Comment on above: Slight Hemolysis, Re sult may be falsely increased. Protein [Mass/Vol] 7.3 g/dL 6.4-8.2 [facility] Sodium [Moles/Vol] 137 mmol/L 136-145 [facility] WBC (Bld) [#/Vol] 8.8 10*3/uL 4.4-11.0 [facility] Blood erythrocytes count (nu mber/volume)Ordered By: Dr. Watson on 11-08-2022 RBC (Bld) [#/Vol] 4.30 10*6/uL 4.2-5.4 [facility] Blood hemoglobin measurement (mass/volume)Ordered By: Dr. Watson on 11-08-2022 Hemoglobin (Bld) [Mass/Vol] 12.6 g/dL 12.0-15.0 [facility] Blood lymphocytes/100 leukoc ytesOrdered By: Dr. Watson on 11-08-2022 Lymphocytes/100 WBC (Bld) 28.5 % 19-41 [facility] Blood monocytes/100 leukocyt esOrdered By: Dr. Watson on 11-08-2022 Monocytes/100 WBC (Bld) 5.8 % 0-10 [facility] Blood platelet mean volumeOr dered By: Dr. Watson on 11-08-2022 Platelet mean volume (Bld) [Entitic vol] 10.9 fL 6.2-12.0 [facility] Determination of erythrocyte mean corpuscular volume (MCV)Ordered By: Dr. Watson on 11-08-2022 MCV (RBC) [Entitic vol] 95.6 fL 81-99 [facility] Hematocrit Auto (Bld) [Volum e fraction]Ordered By: Dr. Watson on 11-08-2022 Hematocrit (Bld) [Volume fraction] 41.1 % 37-47 [facility] Laboratory - Chemistry and C hemistry - challengeOrdered By: Dr. Watson on 11-08-2022 ALP [Catalytic activity/Vol] 100 U/L 45-117 [facility] ALT [Catalytic activity/Vol] 24 U/L 13-56 [facility] CO2 [Moles/Vol] 27.0 mmol/L 21.0-32.0 [facility] Globulin (S) [Mass/Vol] 4.0 g/dL 2.2-4.2 [facility] Urea nitrogen/Creatinine [Mass ratio] 13.3 mg/mg 10-20 [facility] Laboratory - Hematology and Cell countsOrdered By: Dr. Watson on 11-08-2022 Erythrocyte distribution width (RBC) [Entitic vol] 56.2 fL 35.1-43.9 [facility] Erythrocyte distribution width (RBC) [Ratio] 16.5 % 11.6-14.6 [facility] Immature granulocytes/100 WBC (Bld) 0.600 % 0.0-0.9 [facility] Comment on above: IG% - Immature Granu locytes (promyelocytes, myelocytes and metamyelocytes) > 1% indicates that a LEFT SHIFT is Present. MCH (RBC) [Entitic mass] 29.3 pg 27.0-32.0 [facility] Nucleated RBC/100 WBC (Bld) [Ratio] 0 % 0-5 [facility] Auto (RBC) [Mass/Vol]Or dered By: Dr. Watson on 11-08-2022 MCHC (RBC) [Mass/Vol] 30.7 g/dL 32-36 [facility] No Panel InformationOrdered By: Dr. Watson on 11-08-2022 Estimated GFR (MDRD) Amer 105 mL/min >60 [facility] Comment on above: GFR Calc Estimated GFR (MDRD) Non-Af Amer 87 mL/min >60 [facility] Comment on above: Non- GFR Calc Thyroid Stimulating Hormone (TSH) 1.12 uIU/mL 0.358-3.74 [facility] Platelets bldOrdered By: Dr. Watson on 11-08-2022 Platelets (Bld) [#/Vol] 334 10*3/uL 150-450 [facility] Serum or plasma albumin chema urement (mass/volume)Ordered By: Dr. Watson on 11-08-2022 Albumin [Mass/Vol] 3.3 g/dL 3.2-5.0 [facility] Serum or plasma albumin/glob ulin mass ratioOrdered By: Dr. Watson on 11-08-2022 Albumin/Globulin [Mass ratio] 0.8 {ratio} 0.9-2.4 [facility] Serum or plasma calcium chema urement (mass/volume)Ordered By: Dr. Watson on 11-08-2022 Calcium [Mass/Vol] 9.3 mg/dL 8.5-10.1 [facility] Serum or plasma creatinine m easurement (mass/volume)Ordered By: Dr. Watson on 11-08-2022 Creatinine [Mass/Vol] 0.75 mg/dL 0.55-1.02 [facility] Comment on above: The validity of the calculated GFR & GFRAA in patients over 70 years has not been determined. Clinical correlation is essential. Serum or plasma urea nitroge n measurement (mass/volume)Ordered By: Dr. Watson on 11-08-2022 Urea nitrogen [Mass/Vol] 10 mg/dL 7-18 [facility] Thin prep Papanicolaou smear with manual screeningOrdered By: Dr. Watson on 11-08-2022 Thin prep Papanicolaou smear with manual screening 21 U/L 15-37 [facility] Comment on above: Slight Hemolysis, Re sult may be falsely increased. Thin prep Papanicolaou smear with manual screening 7 5-[address] [facility] [address] BRAIN WO IVCONon 08-19-[address] BRAIN WO IVCON Final Report DATE OF EXAM: Aug 18 2020 10:27PM [facility] 0504 - CT BRAIN WO IVCON / PROCEDURE REASON: Head trauma, headache Physician Interpretation EXAMINATION: CT BRAIN WO IVCON CLINICAL HISTORY: Head trauma, headache TECHNIQUE: Routine CT of the brain without IV contrast. CT Dose-Length Product (DLP): 444.[address] Dose Reduction Employed: No dose reduction techniques were required; COMPARISON: None available. RESULT: Some motion artifact limitation. Post-operative change: None. Acute change: No evidence of an acute infarct or other acute parenchymal process. Hemorrhage: No evidence of acute intracranial hemorrhage. Mass Lesion / Mass Effect: There is no evidence of an intracranial parenchymal mass. No significant mass effect. No significant extra-axial fluid collection is seen. Chronic change: None apparent in this modality. Parenchyma: There is no significant generalized volume loss for age. The brain parenchyma is within normal limits for age. Ventricles: Commensurate with sulcal size. Visualized paranasal sinuses: Partially imaged. Scattered mild mucosal thickening/opacifica tion. Other: No depressed skull fracture is seen. Nonspecific trace RIGHT mastoid air cells opacification. Punctate benign-appearing RIGHT frontoparietal calvarial outer table bony exostosis (reference 4:80). Rivet Tapping Machine Operator (topogram) images: No significant findings. IMPRESSION: No CT evidence of acute intracranial abnormality (within constraints of scan quality). Other: Few minor details above. Portable Track Crew Chief: PSCB Transcribe Date/Time: Aug 18 2020 10:30P Dictated by : SHELDON MARQUEZ MD This examination was interpreted and the report reviewed and electronically signed by: SHELDON MARQUEZ MD on Aug 18 2020 10:33PM EST Normal [facility] CT CERVICAL SPINE WO IVCONon 08-19-2020 CT CERVICAL SPINE WO IVCON Final Report DATE OF EXAM: Aug 18 2020 10:30PM [facility] 0505 - CT CERVICAL SPINE WO IVCON / PROCEDURE REASON: C-spine trauma, NEXUS/CCR positive Physician Interpretation EXAMINATION: CT CERVICAL SPINE WO IVCON CLINICAL HISTORY: Neck pain TECHNIQUE: CT of the cervical spine without IV contrast. Spiral, high resolution axial images were obtained from the skull base to the cervicothoracic junction with sagittal and coronal planar reconstructions. MQ: [id number] CT Radiation dose: Integrated CT Dose-Length Product (DLP) for this visit = 646.[address] Dose Reduction Employed: No dose reduction techniques were required COMPARISON: Cervical CT 06/22/2016 RESULT: Counting reference: Craniocervical junction. Anatomic Variants: None. Rivet Tapping Machine Operator (topogram) images: Unremarkable. Alignment: Alignment is anatomic. Craniocervical junction: Craniocervical junction is normal. Osseous structures/fracture: Interval anterior fusion and discectomy C5-C6. Hardware is intact without fracture or loosening. No evidence of a lytic or blastic process in the visualized spine. No evidence of acute or chronic fracture. Cervical soft tissues: The paraspinal soft tissues are within normal limits. Degenerative changes: Moderate degenerative disc and uncovertebral changes C6-C7 contributing to moderate bilateral foraminal stenosis and mild to moderate central stenosis. IMPRESSION: No acute cervical abnormality. Postoperative and degenerative changes described above. Mild/moderate central and moderate bilateral foraminal stenosis at C6-7. Portable Track Crew Chief: PSCB Transcribe Date/Time: Aug 18 2020 10:38P Dictated by : JOHN HASTINGS MD This examination was interpreted and the report reviewed and electronically signed by: JOHN HASTINGS MD on Aug 18 2020 10:41PM EST Normal [facility] XR KNEE 4V AP/LAT/OBLS LTon 08-19-2020 XR KNEE 4V AP/LAT/OBLS LT Final Report DATE OF EXAM: Aug 18 2020 10:37PM LDX 5204 - XR KNEE 4V AP/LAT/OBLS LT / PROCEDURE REASON: Knee trauma, tenderness or effusion or cannot bear weight, initial exam Physician Interpretation XR KNEE 4V AP/LAT/OBLS LT Indication: Knee trauma, tenderness or effusion or cannot bear weight, initial exam. Comparison: 01/20/2015. Technique: AP, bilateral oblique and crosstable lateral views of the left knee were obtained. FINDINGS: There is old healed fracture hypertrophic deformity of the distal femoral metadiaphysis. There is no evidence of acute fracture, dislocation or bone lesion. Bone mineralization appears preserved. There is large osteophyte formation in the femoral condyles and tibial plateaus, and small osteophyte formation in the posterior patella and trochlea. There is associated mild patellofemoral, mild lateral tibiofemoral, and severe medial tibiofemoral joint space narrowing compatible with degenerative articular cartilage loss. There is chronic slight degenerative lateral subluxation of the tibia in relation to the femur. There is no evidence of a joint effusion. The soft tissues are grossly unremarkable, however, evaluation is somewhat limited by large body habitus/marked obesity. IMPRESSION: NO ACUTE ABNORMALITY IS IDENTIFIED. REDEMONSTRATED TRICOMPARTMENTAL OSTEOARTHRITIS, SEVERE IN THE MEDIAL TIBIOFEMORAL JOINT MUÑIZ. Portable Track Crew Chief: DEB Transcribe Date/Time: Aug 18 2020 11:22P Dictated by : RONNI SHARMA MD This examination was interpreted and the report reviewed and electronically signed by: RONNI SHARMA MD on Aug 18 2020 11:26PM EST Normal [facility] .Auto Diffon 07-11-2018 Ammonia (P) [Mass/Vol] 0.60 10 3/mcL Normal 0.15-1.00 [facility] ([place]) Comment on above: Performed By: #### C ISMAEL CARREON ANEU #### [place] [address] [address] Basophils (Bld) [#/Vol] 0.10 10 3/mcL Normal 0.00-0.19 [facility] ([place]) Comment on above: Performed By: #### ISMAEL MCPHERSON ANEU #### [place] [address] [address] Basophils/100 WBC (Bld) 0.7 % Normal 0.0-2.5 [facility] ([place]) Comment on above: Performed By: #### ISMAEL MCPHERSON ANEU #### [place] [address] [address] Eosinophils (Bld) [#/Vol] 0.10 10 3/mcL Normal 0.00-0.40 [facility] ([place]) Comment on above: Performed By: #### C BC, ADIFF, ANEU #### [address] [address] Eosinophils/100 WBC (Bld) 0.6 % Normal 0.0-7.0 [facility] ([place]) Comment on above: Performed By: #### C ISMAEL CARREON, ANEU #### [place] [address] [address] Lymphocytes (Bld) [#/Vol] 1.60 10 3/mcL Normal 0.77-3.85 [facility] ([place]) Comment on above: Performed By: #### C ISMAEL CARREON, ANEU #### [place] [address] [address] Lymphocytes/100 WBC (Bld) 12.7 % Normal 10.0-50.0 [facility] ([place]) Comment on above: Performed By: #### C ISMAEL CARREON, ANEU #### [place] [address] [address] Monocytes/100 WBC (Bld) 4.6 % Normal 1.7-13.0 [facility] ([place]) Comment on above: Performed By: #### ISMAEL MCPHERSON, ANEU #### [place] [address] [address] Neutrophils/100 WBC (Bld) 81.4 % High 37.0-80.0 [facility] ([place]) Comment on above: Performed By: #### ISMAEL MCPHERSON, ANEU #### [place] [address] [address] .GFRon 07-11-2018 GFR 97 ml/min/1.73sqm Normal [facility] ([place]) Comment on above: Result Comment: GFR Population mean for , Non- Americans Ages 20-29 = 116 mL/min/1.73 sq.m. Ages 30-39 = 107 mL/min/1.73 sq.m. Ages 40-49 = 99 mL/min/1.73 sq.m. Ages 50-59 = 93 mL/min/1.73 sq.m. Ages 60-69 = 85 mL/min/1.73 sq.m. Ages 70+ = 75 mL/min/1.73 sq.m. Chronic Kidney Disease: Less than 60 mL/min/1.73 square meters End Stage Renal Disease: Less than 15 mL/min/1.73 square meters Performed By: #### G , BMP #### [address] [address] GFR Non- 80 ml/min/1.73sqm Normal [facility] ([place]) Comment on above: Result Comment: GFR Population mean for , Non- Americans Ages 20-29 = 116 mL/min/1.73 sq.m. Ages 30-39 = 107 mL/min/1.73 sq.m. Ages 40-49 = 99 mL/min/1.73 sq.m. Ages 50-59 = 93 mL/min/1.73 sq.m. Ages 60-69 = 85 mL/min/1.73 sq.m. Ages 70+ = 75 mL/min/1.73 sq.m. Chronic Kidney Disease: Less than 60 mL/min/1.73 square meters End Stage Renal Disease: Less than 15 mL/min/1.73 square meters Performed By: #### G , BMP #### [address] [address] .NEUABSon 07-11-2018 Neutrophils (Bld) [#/Vol] 10.10 10 3/mcL High 2.85-6.16 [facility] ([place]) Comment on above: Performed By: #### ISMAEL MCPHERSON, KLEVER #### [place] [address] [address] .Urinalysis Microscopic (AO) on 07-11-2018 RBC (U) [#/Vol] None Seen Normal None Seen [facility] ([place]) Comment on above: Performed By: #### U A, UAMICAO #### [place] [address] [address] UA Squam Epithelial None Seen Normal None Seen [facility] ([place]) Comment on above: Performed By: #### U A, UAMICAO #### [address] [address] UA WBC None Seen Normal None Seen [facility] ([place]) Comment on above: Performed By: #### Farshad Simmons UAMICAO #### [address] [address] BMPon 07-11-2018 Urea nitrogen [Mass/Vol] 15 mg/dL Normal 7-18 [facility] ([place]) Comment on above: Performed By: #### Stephie FR, BMP #### [address] [address] Urea nitrogen/Creatinine [Mass ratio] 19 ratio Normal 7-27 [facility] ([place]) Comment on above: Performed By: #### Stephie BETANCUR, BMP #### [address] [address] Calcium [Mass/Vol] 8.5 mg/dL Normal 8.4-10.2 [facility] ([place]) Comment on above: Performed By: #### Stephie BETANCUR, BMP #### [address] [address] Chloride [Moles/Vol] 102 mmol/L Normal 98-107 Replaced by [facility] ([place]) Comment on above: Performed By: #### Stephie BETANCUR, BMP #### [address] [address] CO2 [Moles/Vol] 30 mmol/L High 22-29 [facility] ([place]) Comment on above: Performed By: #### Stephie FR, BMP #### [address] [address] Creatinine [Mass/Vol] 0.78 mg/dL Normal 0.55-1.02 [facility] ([place]) Comment on above: Performed By: #### G FR, BMP #### [address] [address] Electrolyte Balance 8.0 mEq/L Normal [facility] ([place]) Comment on above: Performed By: #### G FR, BMP #### [address] [address] Glucose [Mass/Vol] 117 mg/dL High 70-105 [facility] ([place]) Comment on above: Performed By: #### G FR, BMP #### [address] [address] Potassium [Moles/Vol] 3.4 mmol/L Low 3.5-5.1 [facility] ([place]) Comment on above: Performed By: #### G , BMP #### [address] [address] Sodium [Moles/Vol] 140 mmol/L Normal 136-145 [facility] ([place]) Comment on above: Performed By: #### G , BMP #### [address] [address] CBCon 07-11-2018 Erythrocyte distribution width (RBC) [Ratio] 15.3 % High 11.5-14.5 [facility] ([place]) Comment on above: Performed By: #### C ISMAEL CARREON, KLEVER #### [address] [address] Hematocrit (Bld) [Volume fraction] 41.4 % Normal 37.0-47.0 [facility] ([place]) Comment on above: Performed By: #### ISMAEL MCPHERSON, ANEU #### [address] [address] Hemoglobin (Bld) [Mass/Vol] 13.2 G/dL Normal 12.0-16.0 [facility] ([place]) Comment on above: Performed By: #### ISMAEL MCPHERSON, ANEU #### [address] [address] MCH (RBC) [Entitic mass] 29.5 pg Normal 27.0-31.2 [facility] ([place]) Comment on above: Performed By: #### C ISMAEL CARREON, ANEU #### [address] [address] MCHC (RBC) [Mass/Vol] 32.0 G/dL Low 33.0-37.0 [facility] ([place]) Comment on above: Performed By: #### C BCISMAEL, ANEU #### [address] [address] MCV (RBC) [Entitic vol] 92.1 fL Normal 80.0-94.0 [facility] ([place]) Comment on above: Performed By: #### ISMAEL MCPHERSON ANEU #### [address] [address] Platelet mean volume (Bld) [Entitic vol] 10.0 fL Normal 7.4-10.4 [facility] ([place]) Comment on above: Performed By: #### ISMAEL MCPHERSON, ANEU #### [address] [address] Platelets (Bld) [#/Vol] 291 10 3/mcL Normal 130-400 [facility] ([place]) Comment on above: Performed By: #### C ISMAEL CARREON, ANEU #### [place] [address] [address] RBC (Bld) [#/Vol] 4.49 10 6/mcL Normal 4.20-5.40 Replaced by [facility] ([place]) Comment on above: Performed By: #### C ISMAEL CARREON, ANEU #### [address] [address] WBC (Bld) [#/Vol] 12.50 10 3/mcL High 4.60-10.80 [facility] ([place]) Comment on above: Performed By: #### ISMAEL MCPHERSON, ANEU #### [address] [address] UAon 07-11-2018 Color (U) Yellow Normal [facility] ([place]) Comment on above: Performed By: #### U A, UAMICAO #### [address] [address] Glucose (U) [Mass/Vol] Negative Normal Negative [facility] ([place]) Comment on above: Performed By: #### U A, UAMICAO #### [address] [address] Ketones Ql (U) Negative Normal Negative [facility] ([place]) Comment on above: Performed By: #### U A, UAMICAO #### [address] [address] UA Appear Clear Normal Clear [facility] ([place]) Comment on above: Performed By: #### U A, UAMICAO #### [address] [address] UA Blood Negative Normal Negative [facility] ([place]) Comment on above: Performed By: #### U A, UAMICAO #### [address] [address] UA Leuk Est Negative Normal Negative [facility] ([place]) Comment on above: Performed By: #### U A, UAMICAO #### [place] [address] UA Nitrite Negative Normal Negative [facility] ([place]) Comment on above: Performed By: #### U A, UAMICAO #### [place] [address] UA pH 6.5 [facility] ([place]) Comment on above: Performed By: #### U A, UAMICAO #### [address] [address] UA Protein Negative Normal Negative [facility] ([place]) Comment on above: Performed By: #### U A, UAMICAO #### [address] [address] UA Spec Grav 1.015 Normal [facility] ([place]) Comment on above: Performed By: #### U A, UAMICAO #### [address] [address] UA Specimen Type Clean Catch [facility] ([place]) Comment on above: Performed By: #### U A, UAMICAO #### [place] [address] UA Urobilinogen 0.2 E.U./dL [facility] ([place]) Comment on above: Performed By: #### U A, UAMICAO #### [place] [address] Urobilinogen Qn (U) Negative Normal Negative [facility] ([place]) Comment on above: Performed By: #### U BC Simmons #### [place] [address] [address] CR Knee 1 or 2 Views Lefton 06-30-2018 CR Knee 1 or 2 Views Left Patient Name: MITCHELL BROOKS Diagnostic Radiology Exam Date/Time 06/29/2018 14:30:00 EST Exam CR Knee 1 or 2 Views Left Ordering Physician LOIS FONTANA Accession Number [id number] CPT4 Codes 44426 () Reason For Exam Other unilateral secondary osteoarthritis of knee Report HISTORY: Pain three weeks swelling Weightbearing views of both knees show marked severe degenerative joint disease bilaterally especially involving the medial joint compartment, right slightly greater than left with areas of hyperostosis. Additional sunrise and lateral views of the left knee also show severe degenerative changes at the patellar femoral articulation with probable small knee joint effusion and areas of hyperostosis Report Dictated on Final Dictating Physician: MD MCCOY WILLIAM Signed Date and Time: 06/29/2018 11:31 pm Signed by: MD MCCOY WILLIAM Transcribed Date and Time: 06/29/2018 11:32 Normal [facility] CR Knee Standing Bilateralon 06-30-2018 CR Knee Standing Bilateral Patient Name: MITCHELL BROOKS Diagnostic Radiology Exam Date/Time 06/29/2018 14:30:00 EST Exam CR Knee Standing AP Bilateral Ordering Physician LOIS FONTANA Accession Number [id number] CPT4 Codes 01389 () Reason For Exam Other unilateral secondary osteoarthritis of knee Report HISTORY: Pain three weeks swelling Weightbearing views of both knees show marked severe degenerative joint disease bilaterally especially involving the medial joint compartment, right slightly greater than left with areas of hyperostosis. Additional sunrise and lateral views of the left knee also show severe degenerative changes at the patellar femoral articulation with probable small knee joint effusion and areas of hyperostosis Report Dictated on Final Dictating Physician: MD MCCOY WILLIAM Signed Date and Time: 06/29/2018 11:31 pm Signed by: MD MCCOY WILLIAM Transcribed Date and Time: 06/29/2018 11:32 Normal [facility] .GFRon 05-09-2018 GFR 103 ml/min/1.73sqm Normal [facility] ([place]) Comment on above: Result Comment: GFR Population mean for , Non- Americans Ages 20-29 = 116 mL/min/1.73 sq.m. Ages 30-39 = 107 mL/min/1.73 sq.m. Ages 40-49 = 99 mL/min/1.73 sq.m. Ages 50-59 = 93 mL/min/1.73 sq.m. Ages 60-69 = 85 mL/min/1.73 sq.m. Ages 70+ = 75 mL/min/1.73 sq.m. Chronic Kidney Disease: Less than 60 mL/min/1.73 square meters End Stage Renal Disease: Less than 15 mL/min/1.73 square meters Performed By: #### B MP, GFR #### [place] [address] GFR Non- 85 ml/min/1.73sqm Normal [facility] ([place]) Comment on above: Result Comment: GFR Population mean for , Non- Americans Ages 20-29 = 116 mL/min/1.73 sq.m. Ages 30-39 = 107 mL/min/1.73 sq.m. Ages 40-49 = 99 mL/min/1.73 sq.m. Ages 50-59 = 93 mL/min/1.73 sq.m. Ages 60-69 = 85 mL/min/1.73 sq.m. Ages 70+ = 75 mL/min/1.73 sq.m. Chronic Kidney Disease: Less than 60 mL/min/1.73 square meters End Stage Renal Disease: Less than 15 mL/min/1.73 square meters Performed By: #### B MP, GFR #### [address] [address] BMPon 05-09-2018 Calcium [Mass/Vol] 9.5 mg/dL Normal 8.4-10.2 [facility] ([place]) Comment on above: Performed By: #### B MP, GFR #### [address] [address] Chloride [Moles/Vol] 102 mmol/L Normal 98-107 Replaced by [facility] ([place]) Comment on above: Performed By: #### B MP, GFR #### [address] [address] CO2 [Moles/Vol] 30 mmol/L High 22-29 [facility] ([place]) Comment on above: Performed By: #### B MP, GFR #### [address] [address] Creatinine [Mass/Vol] 0.74 mg/dL Normal 0.55-1.02 [facility] ([place]) Comment on above: Performed By: #### B MP, GFR #### [address] [address] Electrolyte Balance 9.0 mEq/L Normal [facility] ([place]) Comment on above: Performed By: #### B MP, GFR #### [address] [address] Glucose [Mass/Vol] 94 mg/dL Normal 70-105 [facility] ([place]) Comment on above: Performed By: #### B MP, GFR #### [address] [address] Potassium [Moles/Vol] 4.3 mmol/L Normal 3.5-5.1 [facility] ([place]) Comment on above: Performed By: #### B MP, GFR #### [address] [address] Sodium [Moles/Vol] 141 mmol/L Normal 136-145 [facility] ([place]) Comment on above: Performed By: #### B MP, GFR #### [address] [address] Urea nitrogen [Mass/Vol] 13 mg/dL Normal 7-18 [facility] ([place]) Comment on above: Performed By: #### B MP, GFR #### [address] [address] Urea nitrogen/Creatinine [Mass ratio] 18 ratio Normal 7-27 [facility] ([place]) Comment on above: Performed By: #### B MP, GFR #### [facility] [address] [place] [address] Vital Signs Date Time Vital Sign Value Performing Clinician Facility 04-24-2024 20:29-0400 Blood Pressure Location SCARLETT SEFFENS FUNERAL DIRECTOR'S ASSISTANT-PRODUCT DEVELOPMENT INTERN [facility] 04-24-2024 20:29-0400 Blood Pressure Method SCARLETT SEFFENS FUNERAL DIRECTOR'S ASSISTANT-PRODUCT DEVELOPMENT INTERN [facility] 04-24-2024 20:29-0400 Body temperature 96.8 [degF] SCARLETT SEFFENS FUNERAL DIRECTOR'S ASSISTANT-PRODUCT DEVELOPMENT INTERN [facility] 04-24-2024 20:29-0400 Diastolic Blood Pressure Non-Invasive 64 mm[Hg] SCARLETT SEFFENS FUNERAL DIRECTOR'S ASSISTANT-PRODUCT DEVELOPMENT INTERN [facility] 04-24-2024 20:29-0400 Heart rate 70 /min SCARLETT SEFFENS FUNERAL DIRECTOR'S ASSISTANT-PRODUCT DEVELOPMENT INTERN [facility] 04-24-2024 20:29-0400 Systolic Blood Pressure Non-Invasive 100 mm[Hg] SCARLETT SEFFENS FUNERAL DIRECTOR'S ASSISTANT-PRODUCT DEVELOPMENT INTERN [facility] 09-26-2022 14:12-0500 Body height 157.[address] Nabila Watson Work Phone: [facility] 09-26-2022 14:12-0500 Body mass index (BMI) [Ratio] 60.5 kg/m2 Dr. Nabila Watson Work Phone: [facility] 09-26-2022 14:12-0500 Body weight 150.[address] Nabila Watson Work Phone: [facility] Encounters Encounter Date Encounter Type Care Provider Facility Start: 03-28-2025 ambulatory Annette Samano NP Facili ty:[facility] Start: 02-05-2025 End: 02-05-2025 Follow-up encounter SCARLETT ROSENBERG FUNERAL DIRECTOR'S ASSISTANT-PRODUCT DEVELOPMENT INTERN [facility] [place] Start: 01-29-2025 End: 01-29-2025 ambulatory Annette Samano [employer] Work Phone: [facility] Work Phone: Start: 01-29-2025 End: 01-29-2025 Patient encounter procedure Annette Samano [employer] -[facility] Start: 01-29-2025 End: 01-29-2025 ambulatory Annette Samano NP Facility:[facility] Start: 01-23-2025 End: 01-23-[address] REUBEN LION MD Facility:[facility] Start: 01-23-2025 End: 01-23-[address] REUBEN LION MD [facility] Start: 01-09-2025 End: 01-24-2025 Evaluation and management of inpatient KEATON Wahl JAIMIE FUNERAL DIRECTOR'S ASSISTANT-PRODUCT DEVELOPMENT INTERN [facility] Start: 01-02-2025 End: 01-09-2025 Evaluation and management of inpatient DR JAKE COPPOLA DO [facility] Start: 01-01-2025 End: 01-02-2025 Emergency department patient visit DR JAKE COPPOLA DO Facility:[facility] Start: 12-28-2024 End: 12-28-2024 Emergency department patient visit ANNETTE SAMANO Facility:[facility] Start: 12-25-2024 End: 12-25-2024 Emergency department patient visit ANNETTE SAMANO Facility:[facility] Start: 06-24-2024 ambulatory Yung Elier Facility:[facility] Start: 05-16-2024 End: 05-16-2024 ambulatory Yung Elier Facility:[facility] Start: 04-24-2024 End: 04-24-2024 AMB External Visit SCARLETT BAHENAWANDER FUNERAL DIRECTOR'S ASSISTANT-PRODUCT DEVELOPMENT INTERN [facility] Start: 04-05-2024 End: 04-05-2024 Emergency department patient visit MELODIE BLANCAS Facility:[facility] Start: 03-25-2024 End: 04-17-2024 Telephone encounter Joyce Sierra FUNERAL DIRECTOR'S ASSISTANT - PRODUCT DEVELOPMENT INTERN Work Phone: [facility] Comment on above: Cancelled Appointmen t Start: 02-16-[address] Agustin Carrillo Facility:[id number] Start: 01-26-2023 Telephone encounter Nabila pope MD Work Phone: Hematology Comment on above: Patient Question (Re ferral ) Start: 01-10-2023 End: 01-14-2023 Evaluation and management of inpatient ROMÁN CHANDLER Facility:[facility] Start: 11-08-2022 End: 11-08-[address] Nabila Watson Work Phone: [facility] Work Phone: Start: 11-08-2022 End: 11-08-[address] [facility]abil[facility] Start: 09-26-2022 End: 09-26-[address] Nabila Watson Work Phone: [facility] Start: 07-24-2022 Refill [place] FUNERAL DIRECTOR'S ASSISTANT.PRODUCT DEVELOPMENT INTERN Work Phone: [facility] Comment on above: Refill Request Start: 06-24-2022 ambulatory Geraldine Suggs MA [facility] Comment on above: ED OUTREACH (ED OUTR EACH/) Start: 11-26-2021 End: 11-26-[address] Nabila Watson Work Phone: [facility] Start: 11-26-2021 End: 11-26-[address] Nabila Watson Work Phone: [facility] Start: 06-29-2018 Patient encounter procedure [facility] Procedures Date Procedure Procedure Detail Performing Clinician Start: 01-29-2025 Urnls dip stick/tabl et reagent auto microscopy Annette Samano [employer] Work Phone: Start: 01-29-2025 Urine culture Annette lombardi [employer] Work Phone: Start: 02-16-2023 Follow-up visit Start: 07-19-2016 Klippel-Feil sequenc e (disorder) SCARLETT ROSENBERG FUNERAL DIRECTOR'S ASSISTANT-PRODUCT DEVELOPMENT INTERN Comment on above: C5-C6 Start: 09-04-2014 Mammography Geraldine Klicm an MA Abdominal (qualifier value) SCARLETT ROSENBERG FUNERAL DIRECTOR'S ASSISTANT-PRODUCT DEVELOPMENT INTERN Cellulitis (morpholo gic abnormality) SCARLETT ROSENBERG FUNERAL DIRECTOR'S ASSISTANT-PRODUCT DEVELOPMENT INTERN Cellulitis (morpholo gic abnormality) DR REUBEN LION MD Comment on above: inner upper thigh- R T side section SCARLETT BARROS FUNERAL DIRECTOR'S ASSISTANT-PRODUCT DEVELOPMENT INTERN Comment on above: 1993 and 1995 Epidural injection o f lumbar spine using fluoroscopic guidance SCARLETT ROSENBERG FUNERAL DIRECTOR'S ASSISTANT-PRODUCT DEVELOPMENT INTERN Tonsillectomy and adenoidectomy SCARLETT ROSENBERG FUNERAL DIRECTOR'S ASSISTANT-PRODUCT DEVELOPMENT INTERN Plan of Treatment Date Care Activity Detail Author Start: 2034 RSV Immunization aged 60 or older (1 - 1-dose 60+ series) RSV Immunization aged 60 or older (1 - 1-dose 60+ series) [facility] Start: 03-29-2028 DTaP/Tdap/Td Vaccines (7 - Td or Tdap) DTaP/Tdap/Td Vaccines (7 - Td or Tdap) [facility] Start: 03-29-2028 Urine microalbumin profile DTAP,TDAP,TD (7 - Td or Tdap) [facility] Start: 01-13-2026 DIABETES SCREEN DIABETES SCREEN [facility] Start: 06-22-2025 DIABETES SCREEN DIABETES SCREEN [facility] Start: 06-22-2025 Urine microalbumin profile DTAP,TDAP,TD (6 - Td or Tdap) [facility] Start: 07-01-2024 End: 07-01-2024 Patient encounter procedure 07/01/2024 11:20 AM EST Office Visit [facility] [address] [place] [address] Joyce Sierra APRN - [id number] [facility] Start: 04-14-2024 COVID-19 Vaccine ( season) COVID-19 Vaccine ( season) [facility] Start: 04-14-2024 Influenza vaccination Influenza Vaccine (#1) [facility] Start: 2024 Zoster Vaccines (1 of 2) Zoster Vaccines (1 of 2) [facility] Start: 08-14-2022 DEPRESSION ASSESSMENT DEPRESSION ASSESSMENT [facility] Start: 04-14-2022 Influenza vaccination INFLUENZA (#1) [facility] Start: 08-14-2021 DEPRESSION ASSESSMENT DEPRESSION ASSESSMENT [facility] Start: 03-02-2020 HPV TESTING HPV TESTING [facility] Start: 03-02-2020 PAP TESTING PAP TESTING [facility] Start: 2019 COLOGUARD (FIT-DNA) COLOGUARD (FIT-DNA) [facility] Start: 2019 COLORECTAL CANCER SCREENING COLORECTAL CANCER SCREENING [facility] Start: [address] COLONOGRAPHY [facility] Start: 2019 FECAL OCCULT BLOOD FECAL OCCULT BLOOD [facility] Start: 2019 LIPID SCREEN LIPID SCREEN [facility] Start: 2019 SIGMOIDOSCOPY SIGMOIDOSCOPY [facility] Start: 05-10-2018 PNEUMOCOCCAL (2 - PCV) PNEUMOCOCCAL (2 - PCV) [facility] Start: 05-10-2018 Pneumococcal Vaccine: Pediatrics (0 to 5 Years) and At-Risk Patients (6 to 64 Years) (2 of 2 - PCV) Pneumococcal Vaccine: Pediatrics (0 to 5 Years) and At-Risk Patients (6 to 64 Years) (2 of 2 - PCV) [facility] Start: 09-04-2015 Mammography MAMMOGRAM [facility] Start: 09-04-2015 PNEUMOCOCCAL (2 - PCV) PNEUMOCOCCAL (2 - PCV) [facility] Start: 2014 Screening for malignant neoplasm of breast Mammogram [facility] Start: 04-19-2013 COLORECTAL CANCER SCREENING COLORECTAL CANCER SCREENING [facility] Start: 2004 Screening for malignant neoplasm of cervix [facility] Start: 2004 Zoledronic acid therapy ALPHA-1 ANTITRYPSIN DEFICIENCY SCREENING [facility] Start: 1995 Screening for malignant neoplasm of cervix Pap Smear [facility] Start: 1993 Hepatitis B Vaccines (1 of 3 - 19+ 3-dose series) Hepatitis B Vaccines (1 of 3 - 19+ 3-dose series) [facility] Start: 1992 ANNUAL PCP TEAM CHRONIC DISEASE VISIT ANNUAL PCP TEAM CHRONIC DISEASE VISIT [facility] Start: 1992 BP CONTROLLED (<130/80) BP CONTROLLED (<130/80) [facility] Start: 1992 Colonoscopy COLONOSCOPY [facility] Start: 1992 Diabetes mellitus screening Diabetes Screening [facility] Start: 1992 HEPATITIS C SCREENING HEPATITIS C SCREENING [facility] Start: 1992 Hepatitis C screening Hepatitis C Screening [facility] Start: 1992 HIV SCREENING HIV SCREENING [facility] Start: 1992 SPIROMETRY SPIROMETRY [facility] Start: 1986 Depression Screening Depression Screening [facility] Start: 1974 COVID-19 VACCINE (#1) COVID-19 VACCINE (#1) [facility] Start: 1974 HEPATITIS B (1 of 3 - 3-dose series) HEPATITIS B (1 of 3 - 3-dose series) [facility] Start: 1974 HIV screening HIV Screening [facility] Start: 1974 Lipid panel Lipid Panel [facility] Start: 1974 Screening for malignant neoplasm of colon [facility] Start: 1974 Thyroid stimulating hormone measurement TSH Level [facility] Immunizations Immunization Date Immunization Notes Care Provider Chichi sheriff 06-22-2022 influenza virus vacc ine, unspecified formulation [place] FUNERAL DIRECTOR'S ASSISTANT.PRODUCT DEVELOPMENT INTERN Work Phone: [facility] 04-19-2018 influenza virus vacc ine, unspecified formulation SCARLETT SEFFENS FUNERAL DIRECTOR'S ASSISTANT-PRODUCT DEVELOPMENT INTERN [facility] 04-19-2018 influenza, injectabl e, quadrivalent, preservative free [place] FUNERAL DIRECTOR'S ASSISTANT.PRODUCT DEVELOPMENT INTERN Work Phone: [facility] 03-29-2018 tetanus toxoid, redu anthony diphtheria toxoid, and acellular pertussis vaccine, adsorbed [place] FUNERAL DIRECTOR'S ASSISTANT.PRODUCT DEVELOPMENT INTERN Work Phone: [facility] 05-10-2017 influenza virus vacc ine, unspecified formulation SCARLETT SEFFENS FUNERAL DIRECTOR'S ASSISTANT-PRODUCT DEVELOPMENT INTERN [facility] 05-10-2017 influenza, injectabl e, quadrivalent, preservative free [place] FUNERAL DIRECTOR'S ASSISTANT.PRODUCT DEVELOPMENT INTERN Work Phone: [facility] 05-10-2017 pneumococcal polysaccharide vaccine, 23 valent [place] FUNERAL DIRECTOR'S ASSISTANT.PRODUCT DEVELOPMENT INTERN Work Phone: [facility] 06-22-2015 tetanus toxoid, redu anthony diphtheria toxoid, and acellular pertussis vaccine, adsorbed Geraldine Suggs MA [facility] 09-04-2014 influenza virus vacc ine, unspecified formulation SCARLETT SEFFENS FUNERAL DIRECTOR'S ASSISTANT-PRODUCT DEVELOPMENT INTERN [facility] 09-04-2014 influenza, seasonal, injectable Geraldine Suggs MA [facility] 09-04-2014 pneumococcal polysaccharide vaccine, 23 valent Geraldine Suggs MA [facility] 06-24-2013 influenza virus vacc ine, unspecified formulation Geraldine Suggs MA [facility] 04-12-1989 mumps virus vaccine Geraldine Suggs MA [facility] 04-12-1986 mumps virus vaccine Geraldine Suggs MA [facility] 11-25-1983 trivalent poliovirus vaccine, live, oral Geraldine Suggs MA [facility] 03-29-1976 diphtheria, tetanus toxoids and acellular pertussis vaccine Geraldine Suggs MA [facility] 03-29-1976 measles, mumps and rubella virus vaccine Geraldine Suggs MA [facility] 03-29-1976 trivalent poliovirus vaccine, live, oral Geraldine Suggs MA [facility] 1974 diphtheria, tetanus toxoids and acellular pertussis vaccine Geraldine Es [facility] 1974 trivalent poliovirus vaccine, live, oral Geraldine Suggs MA [facility] 1974 diphtheria, tetanus toxoids and acellular pertussis vaccine Geraldine Suggs MA [facility] 1974 trivalent poliovirus vaccine, live, oral Geraldine Suggs MA [facility] 1974 diphtheria, tetanus toxoids and acellular pertussis vaccine [facility] Es [facility] 1974 trivalent poliovirus vaccine, live, oral Geraldine Es [facility] Payers Date Payer Category Payer Self-pay [id number] 2024 Unknown [id number] [facility] [id number] 2016 Medicaid [id number] 2016 Unknown [id number] 1974 Unknown [id number] 2.16.8 [id number] 1974 Unknown [id number] 2.16. [id number] 1974 Unknown [id number] 2.16. [id number] 1974 Unknown [id number] 2.16. [id number] 1974 Unknown [id number] 2.16. [id number] 1974 Unknown [id number] 2.16.8 [id number] Unknown Unknown [id number] 2.16.8 [id number] Unknown [id number] 2.16.8 [id number] Unknown [id number] 2.16.8 [id number] Unknown [id number] 2.16.8 [id number] Social History Date Type Detail Facility Start: 11-26-2021 End: 09-26-2022 Tobacco smoking status FLIS Unknown if ever smoked [facility] Start: 07-11-2017 None [facility] Start: 07-11-2017 Spouse/ Signif icant Other [facility] Start: 01-08-2021 Cigarettes [facility] Start: 1975 Sex Assigned At Female C [facility] Start: 06-22-2022 End: 11-23-2023 Tobacco smoking status NHIS Smokes tobacco daily [facility] History of tobacco use Cigarette Smoker C [facility] Start: 06-22-2022 End: 08-02-2022 Cigarettes smoked current (pack per day) - Reported 0.5 [facility] Start: 06-22-2022 Tobacco use and exposure Smokeless tobacco non-user [facility] Start: 06-22-2022 End: 01-10-2023 Alcohol intake Current non-drinker of alcohol (finding) [facility] Start: 06-22-2022 Tobacco Comment down to maybe 6 cigarettes through the day [facility] Start: 06-12-2022 End: 06-22-2022 Exposure to SARS-CoV-2 (event) Not sure [facility] Start: 01-10-2023 History SDOH Financial 4 [facility] Start: 08-02-2022 Alcoholic beverage intake Current drinker of alcohol (finding) [facility] Start: 08-02-2022 Tobacco use panel [facility] Start: 03-28-2024 Tobacco smoking status Heavy t obacco smoker (finding) [facility] Comment on above: Smoking since age 15 Start: 07-23-2024 Tobacco smoking status Light t obacco smoker (finding) [facility] Comment on above: Smoking since age 15 Sexual Orientation Nuzhat [employer] Start: 07-09-2019 Sex Female (finding) [facility] Medical Equipment Procedure Code Equipment Code Equipment Origin al Text Equipment Identifier Dates Spacer Avs 4d 7m m Spinal Bone Plug - [id number] Start: 07-18-2016 Plate Aviator Titanium 12x17.4x2.5mm Bone Level 1 Automatic Lock System - [id number] Start: 07-18-2016 Screw Aviator 4m m Titanium 16mm Bone Variable Angle Self Drill Nonsterile - [id number] Start: 07-18-2016 Tube 6mm Cuf Pro x Ext Trchsf - [id number] Start: 08-02-2013 Clinical Notes 05-10-2013 to 02-05-2025 Note Date & Type Note Facility 02-05-2025 Primary care Note Chief Complaint Hospital follow up, spinal stenosis, left foot pain, right leg pain History of Present Illness Mitchell was seen in her home today with her significant other present. Hospital follow-up, was admitted 01/02/2025 to [facility] through the [facility] ER and discharged home from Rehab at [facility] on 01/24/2025. Presented to the ED on January 01 for acute on chronic back pain. Sent to for further orthospine, neurosurgery evaluation given MRI lumbar spine findings of L3-L4 bilateral facet joint cyst resulting in severe stenosis. She was a surgical candidate but opted for nonsurgical intervention. She underwent epidural injection on 01/07/2025. Concerns today: Needs order for 2 wheeled walker and bedside commode. She is seeing PT and nursing in her home and is walking more but still requires 1 assist to go from living room to bathroom. She would like a BSC so that she could transfer herself if home alone. Pain in left foot started after her partner was removing skin off of her foot with a PedEgg. Skin is sore and painful on left lateral foot. Hurts to put weight on it. Pain and increased swelling in right anterior paula for the last several days. Mildly tender. States history of cellulitis related to her chronic lymphedema. Was recently started on Bactrim for UTI Review of Systems See pertinent positives and negatives in the HPI above. Physical Exam Vitals and Measurements HR: 68 (Apical) BP: 110/60 Oxygen Therapy: Room air GENERAL: female in no acute distress. Alert with good eye contact. HEAD: Normocephalic/atraumatic. NECK: Trachea midline. Neck supple, normal range of motion. No tenderness. No thyromegaly noted. LYMPH: No submandibular, submental, anterior, or posterior cervical lymphadenopathy. CARDIAC: Regular rate, regular rhythm, no murmurs, rubs, gallops noted. RESPIRATORY: Thorax symmetrical with good expansion. Lungs resonant. Regular rate and depth; no distress, RIGHT lung clear, LEFT lung clear. Breath sounds normal. ABDOMEN: soft, nontender. Normal bowel sounds. PERIPHERAL VASCULAR: Extremities warm with +3 edema. Calves nontender. Dorsalis Pedis pulse +2/4 bilaterally. Posterior Tibialis pulse +2/4 bilaterally. MUSCULOSKELETAL: Gait not observed. Sitting in recliner. Severe lymphedema to bilateral LE, knee to ankle. Left lateral plantar aspect of foot with dry peeling skin and tender dark red colored area approx 2x2cm. No drainage, non fluctuant. NEURO: Mental Status- Alert, relaxed, cooperative. Though process coherent. Oriented to person, place, and time. Nerves- Cranial Nerves II-XII grossly intact. Motor- Good muscle bulk and tone. +4/5 RIGHT knee extension strength; +4/5 LEFT knee extension strength; PSYCHIATRIC: Alert and oriented x 3, cooperative, mood normal, affect normal. Social History Smoking Status - 01/17/2018 Current every day smoker Alcohol - Denies Alcohol Use, 04/25/2017 Use: Never., 02/21/2019 Home/Environment Living situation: Home with assistance. Safe place to go: Yes. Financial concerns: No. 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 Lives In: Mobile home. Current Home Treatments Nebulizer treatments. Marital Status: Unmarried., 01/01/2025 Nutrition/Health Caffeine intake amount: Coffee 2-3 cups daily; pop 2 of the 20oz daily., 07/23/2024 Sexual - No Risk, 08/10/2018 Substance Abuse - Denies Substance Abuse, 04/25/2017 Use: Never., 02/21/2019 Tobacco - High Risk, 08/10/2018 Nicotine Use: 5-9 cigarettes (between 1/4 to 1/2 pack)/day in last 30 days. Type: Cigarettes., 07/23/2024 Family History Asthma: Sister. Dementia: Father. Diabetes: Father and Grandparent. Heart disease: Grandparent and Grandparent. Liver cancer: Mother. Health Status Family Member(s) Family Member(s) Relationship: Mother, Age: 59 Years Assessment/Plan 1. Hospital discharge follow-up The patient s discharge medication list was reconciled with the patient s home medications and their medication list has been updated. Summation of hospitalization records reviewed. 2. Lumbar spinal stenosis Acute on chronic: Keep scheduled appointment, DME prescription sent February 17, 2025 and has a [address] King. Advised to keep this appointment. In the meantime she is taking Tylenol as needed for pain. She also sees pain management, appointment with Dr. Acevedo at [place] on March 03. The patient could benefit from a dual wheeled walker and a bedside commode. Her mobility is still limited especially exacerbated by other comorbidities like lymphedema and now cellulitis. 3. Lymphedema Chronic: worsening Appears to have the start of some cellulitis on right paula area, tender, firm. Will treat with cephalexin, Keep appointment with PCP on 02/18 for recheck or sooner if needed if not improved or worsening. 4. Cellulitis of right leg without foot Acute: Rx sent See #3 above 5. Wound of left foot Acute: Rx sent, referral placed Patient will be given cephalexin at this time. Will refer to podiatry. Has seen Dr Conroy in the past however currently homebound. Per her home health nurse there is a mobile wildlife policy professional in the area. Will see if can get her in with that person. 6. Impaired ambulation Acute on chronic: DME ordered Walker and BSC ordered. Will have nursing fax orders to [facility] in [place]. 7. UTI (urinary tract infection) Acute: continue Bactrim DS Sent per Dr Moncada yesterday, has not picked it up yet. Culture grew small amount proteus. Orders: cephalexin(cephalexin 500 mg oral capsule), 500 mg= 1 cap(s), Oral, QID Keep upcoming appointments. I have reviewed the information entered by staff including patient's medications, allergies, past medical history, family history, social history, nursing notes and vital signs. This note was generated using a voice recognition system. There may be incorrect words, spellings, and punctuation that were missed in checking this note before saving. Problem List/Past Medical History Ongoing Angina at rest Anxiety Arthritis of both knees Arthritis of facet joint of lumbar spine Bipolar depression Bladder dysfunction Bladder incontinence Cellulitis Cellulitis of right leg without foot Chronic obstructive pulmonary disease (COPD) Chronic pain Coughing Depression DVT (deep venous thrombosis) Dyslipidemia Essential hypertension Fibromyalgia Gastric ulcer Gastritis GERD (gastroesophageal reflux disease) Hematoma History of atrial fibrillation Hospital discharge follow-up Hypothyroid IBS (irritable bowel syndrome) Lumbar spinal stenosis Lumbar stenosis Lymphedema Morbid obesity Neuropathy Osteoarthritis of knees, bilateral Osteochondroma of femur Overactive bladder Pulmonary hypertension Sciatica Weakness Wound of left foot Procedure/Surgical History Cervical fusion syndrome: 07/19/16 Epidural injection of lumbar spine using fluoroscopic guidance Cellulitis Tonsillectomy and adenoidectomy section Allergies Vicodin intense anxiety, itching Zanaflex itching, redness of skin ciprofloxacin itching, Redness of skin of face codeine redness of skin cyproheptadine Hives ibuprofen swelling morphine Flushed naproxen Itching penicillin itching Medications What How Much When Why Instructions Last Dose New cephalexin (cephalexin 500 mg oral capsule) 1 cap by mouth Four (4) times a day Duration: 10 Days Pickup at [facility] Unchanged acetaminophen (Tylenol) 650 Milligram by mouth Once a day as needed for as needed for pain Unchanged albuterol (albuterol 2.5 mg/ 3 mL (0.083%) inhalation solution) 3 Milliliter by inhalation Every 4 hours as needed for for wheezing Contact prescriber if questions or concerns Unchanged albuterol (Ventolin HFA MDI (90 mcg/ inh) inhalation aerosol) 2 puff(s) by inhalation Every 4 hours as needed for as needed for shortness of breath or wheezing Acute bronchitis Chronic obstructive pulmonary disease (COPD) Duration: 90 Days Contact prescriber if questions or concerns Unchanged benztropine (benztropine 0.5 mg oral tablet) 1 tab(s) by mouth Two (2) times a day as needed for abdominal discomfort Contact prescriber if questions or concerns Unchanged brexpiprazole (Rexulti 1 mg oral tablet) 1 tab(s) by mouth Once a day Duration: 30 Days Contact prescriber if questions or concerns Unchanged cetirizine (cetirizine 10 mg oral tablet) 1 tab(s) by mouth Once a day Allergic rhinitis Duration: 90 Days Contact prescriber if questions or concerns Unchanged cholecalciferol (Vitamin D3) 20 Microgram by mouth Every day Contact prescriber if questions or concerns Unchanged chondroitin/ glucosamine/ methylsulfonylmethane (Glucosamine Chondroitin Advanced oral tablet) 2 tab(s) by mouth Once a day plus D- 50 mcg Contact prescriber if questions or concerns Unchanged clopidogrel (Plavix 75 mg oral tablet) 1 tab(s) by mouth Once a day Contact prescriber if questions or concerns Unchanged colestipol (Colestid 1 g oral tablet) 1 tab(s) by mouth Two (2) times a day Contact prescriber if questions or concerns Unchanged diclofenac topical (Voltaren 1% topical gel) 4 gram(s) Topical Four (4) times a day as needed for Pain Fibromyalgia Arthritis of both knees Arthritis of facet joint of lumbar spine Duration: 30 Days Contact prescriber if questions or concerns Unchanged dicyclomine (dicyclomine 10 mg oral capsule) 1 cap by mouth Four (4) times a day Contact prescriber if questions or concerns Unchanged famotidine (famotidine 40 mg oral tablet) 1 tab(s) by mouth Daily at bedtime Contact prescriber if questions or concerns Unchanged fluticasone (Flovent HFA 110 mcg/ inh inhalation aerosol) 2 inh by inhalation Two (2) times a day Chronic obstructive pulmonary disease (COPD) Duration: 30 Days Contact prescriber if questions or concerns Unchanged hydrOXYzine (hydrOXYzine hydrochloride 25 mg oral tablet) 1 tab(s) by mouth Three (3) times a day as needed for as needed for anxiety Contact prescriber if questions or concerns Unchanged levothyroxine (levothyroxine 50 mcg (0.05 mg) oral tablet) 1 tab(s) by mouth Once a day Contact prescriber if questions or concerns Unchanged methocarbamol (methocarbamol 750 mg oral tablet) 1 tab(s) by mouth Three (3) times a day as needed for as needed for pain Fibromyalgia Arthritis of both knees Duration: 30 Days Contact prescriber if questions or concerns Unchanged metoprolol (metoprolol tartrate 25 mg oral tablet) 1 tab(s) by mouth Two (2) times a day Contact prescriber if questions or concerns Unchanged montelukast (montelukast 10 mg oral tablet) 1 tab(s) by mouth Once a day Contact prescriber if questions or concerns Unchanged multivitamin (Multivitamin) 1 tab(s) by mouth Every day Contact prescriber if questions or concerns Unchanged oxybutynin (oxybutynin 5 mg oral tablet) 1 tab(s) by mouth Three (3) times a day Duration: 90 Days Contact prescriber if questions or concerns Unchanged pantoprazole (pantoprazole 40 mg oral enteric coated tablet) 1 tab(s) by mouth Two (2) times a day Contact prescriber if questions or concerns Unchanged pregabalin (pregabalin 75 mg oral capsule) 1 cap by mouth Three (3) times a day Fibromyalgia Arthritis of both knees Duration: 30 Days Contact prescriber if questions or concerns Unchanged QUEtiapine (QUEtiapine 50 mg oral tablet) 2 tab(s) by mouth Daily at bedtime Bipolar disorder Duration: 90 Days Contact prescriber if questions or concerns Unchanged sertraline (sertraline 25 mg oral tablet) 1 tab(s) by mouth Once a day Contact prescriber if questions or concerns Pharmacy Information [id number]: [address] [place], [place] [phone] What How Much When Comments Stop Taking bismuth subsalicylate (Pepto Bismol Liquicaps 262 mg oral capsule) 2 cap by mouth Every 30 minutes not to exceed 8 capsules/ day Stop Taking sulfamethoxazole-trimethoprim (Bactrim DS 800 mg-160 mg oral tablet) 1 tab(s) by mouth Every 12 hours Duration: 5 Days Digitally Signed by SCARLETT ROSENBERG on 02/05/2025 06:03 PM [facility] [place] 01-24-2025 Note Discharge Instructions Thank you for allowing [facility] to assist you with your healthcare needs. The following is important discharge information regarding your hospital visit. Your Care Team ANNETTE SAMANO Your Diagnosis Asthenia Bipolar disorder Chronic obstructive pulmonary disease (COPD) Chronic pain Essential hypertension Fibromyalgia IBS (irritable bowel syndrome) Lumbar spinal stenosis Morbid obesity Tobacco use What to do next Instructions From Your Doctor You were admitted to [facility] transitional care program after a stay at [facility] for ongoing rehab. You have progressed well with therapy and are ready to go home today. We have arranged for home PT/OT to come to your home to continue to work with you. We recommend that you follow-up with your PCP in the next week for post-hospitalization follow-up. We have also scheduled you in with Dr. King, neurosurgery. If you have any new or worsening problems once home, please call your PCP or return to the ED. Thank you for choosing [facility] transitional care program. We wish you well as you transition home today! Scheduled Follow-Up Appointments Appointment Type When With Where Contact Information StatusNS OV 02/17/2025 02:30 PM EDT LEEANN KING MD Neurosurgery [address] [id number] Confirmed GS OV Check Up 04/03/2025 02:00 PM EDT REUBEN LION JR, MD [facility] Confirmed Follow Up Appointments Follow Up with ANNETTE SAMANO APRN-QUETA When:Within 3-5 days Where:[address] [facility] [place] [phone] Additional Information: Please call to schedule your post-hospital follow-up appointment. Follow Up with LEEANN KING MD, Neurosurgery When:02/17/2025 02:30 PM EDT Where:[address] [place] [phone] Additional Information: This is your neurosurgery appointment. Follow-up as scheduled. The Following Activity and Diet Have Been Ordered for You Discharge Activity - Ordered -- Resume your pre-hospitalization activity, 01/24/25 8:08:00 EDT Discharge Diet - Ordered -- No changes were made to your diet during your hospital stay. Please resume your pre hospitalization diet on discharge., 01/24/25 8:08:00 EDT The Following Equipment Has Been Ordered for You No qualifying data available. The Following Treatments Have Been Ordered for You Discharge Labs No qualifying data available. Discharge Radiology No qualifying data available. Other Therapies No qualifying data available. Post Acute Orders No qualifying data available. Someone Will Contact You Regarding These Home Health Referrals No home referrals have been ordered for you. No one will call you. Allergies Vicodin intense anxiety, itching Zanaflex itching, redness of skin ciprofloxacin itching, Redness of skin of face codeine redness of skin cyproheptadine Hives ibuprofen swelling morphine Flushed naproxen Itching penicillin itching Medications Please ask your primary doctor or pharmacist before taking any other medication not listed, including over the counter drugs, herbal medications, vitamins and or supplements as they may interact with your home medications. What How Much When Why Instructions Last Dose New acetaminophen-oxyCODONE (acetaminophen-oxyCODONE 325 mg-5 mg oral tablet) 1 tab(s) by mouth Every 6 hours as needed for for pain Lumbar spinal stenosis Duration: 7 Days Pickup at [facility] 01/23 @ 10 pm Unchanged acetaminophen (Tylenol) 650 Milligram by mouth Once a day as needed for as needed for pain 01/24 @ 6 am Unchanged albuterol (albuterol 2.5 mg/ 3 mL (0.083%) inhalation solution) 3 Milliliter by inhalation Every 4 hours as needed for for wheezing 01/24 @ 6 am Unchanged albuterol (Ventolin HFA MDI (90 mcg/ inh) inhalation aerosol) 2 puff(s) by inhalation Every 4 hours as needed for as needed for shortness of breath or wheezing Acute bronchitis Chronic obstructive pulmonary disease (COPD) Duration: 90 Days Not given Unchanged benztropine (benztropine 0.5 mg oral tablet) 1 tab(s) by mouth Two (2) times a day as needed for abdominal discomfort Not given Unchanged bismuth subsalicylate (Pepto Bismol Liquicaps 262 mg oral capsule) 2 cap by mouth Every 30 minutes not to exceed 8 capsules/ day 01/24 @ 9:30 am Unchanged brexpiprazole (Rexulti 1 mg oral tablet) 1 tab(s) by mouth Once a day Duration: 30 Days 01/24 @ 9 am Unchanged cetirizine (cetirizine 10 mg oral tablet) 1 tab(s) by mouth Once a day Allergic rhinitis Duration: 90 Days Not given Unchanged cholecalciferol (Vitamin D3) 20 Microgram by mouth Every day Not given Unchanged chondroitin/ glucosamine/ methylsulfonylmethane (Glucosamine Chondroitin Advanced oral tablet) 2 tab(s) by mouth Once a day plus D- 50 mcg Not given Unchanged clopidogrel (Plavix 75 mg oral tablet) 1 tab(s) by mouth Once a day 01/24 @ 9 am Unchanged colestipol (Colestid 1 g oral tablet) 1 tab(s) by mouth Two (2) times a day 6/ @ 12 pm Unchanged diclofenac topical (Voltaren 1% topical gel) 4 gram(s) Topical Four (4) times a day as needed for Pain Fibromyalgia Arthritis of both knees Arthritis of facet joint of lumbar spine Duration: 30 Days Not given Unchanged dicyclomine (dicyclomine 10 mg oral capsule) 1 cap by mouth Four (4) times a day 01/23 @ 12 pm Unchanged famotidine (famotidine 40 mg oral tablet) 1 tab(s) by mouth Daily at bedtime 6 @ 9 pm Unchanged fluticasone (Flovent HFA 110 mcg/ inh inhalation aerosol) 2 inh by inhalation Two (2) times a day Chronic obstructive pulmonary disease (COPD) Duration: 30 Days Not given Unchanged hydrOXYzine (hydrOXYzine hydrochloride 25 mg oral tablet) 1 tab(s) by mouth Three (3) times a day as needed for as needed for anxiety Not given Unchanged levothyroxine (levothyroxine 50 mcg (0.05 mg) oral tablet) 1 tab(s) by mouth Once a day 01/24 @ 6 am Unchanged methocarbamol (methocarbamol 750 mg oral tablet) 1 tab(s) by mouth Three (3) times a day as needed for as needed for pain Fibromyalgia Arthritis of both knees Duration: 30 Days Not given Unchanged metoprolol (metoprolol tartrate 25 mg oral tablet) 1 tab(s) by mouth Two (2) times a day 01/24 @ 9 am Unchanged montelukast (montelukast 10 mg oral tablet) 1 tab(s) by mouth Once a day 01/24 @ 9 am Unchanged multivitamin (Multivitamin) 1 tab(s) by mouth Every day 01/24 @ 9 am Unchanged oxybutynin (oxybutynin 5 mg oral tablet) 1 tab(s) by mouth Two (2) times a day 01/24 @ 9 am Unchanged pantoprazole (pantoprazole 40 mg oral enteric coated tablet) 1 tab(s) by mouth Two (2) times a day 01/24 @ 6 am Unchanged pregabalin (pregabalin 75 mg oral capsule) 1 cap by mouth Three (3) times a day Fibromyalgia Arthritis of both knees Duration: 30 Days 01/24 @ 9 am Unchanged QUEtiapine (QUEtiapine 50 mg oral tablet) 2 tab(s) by mouth Daily at bedtime Bipolar disorder Duration: 90 Days 01/23 @ 9 pm Unchanged sertraline (sertraline 25 mg oral tablet) 1 tab(s) by mouth Once a day 01/24@ 9 am Pharmacy Information [facility]: [address] [place], [place] [phone] Please take this list to your next doctor s visit. Bring all medications you take, including over the counter medications, herbals and other supplements with you to your doctor s visit. Patients and families are reminded to discard old lists and to update any records with all medication providers or retail pharmacies. Education Materials Spinal Stenosis Spinal stenosis occurs when the open space (spinal canal) between the bones of your spine (vertebrae) narrows, putting pressure on the spinal cord or nerves. What are the causes? This condition is caused by areas of bone pushing into the central canals of your vertebrae. This condition may be present at (congenital), or it may be caused by: Arthritic deterioration of your vertebrae (spinal degeneration). This usually starts around age 50. Injury or trauma to the spine. Tumors in the spine. Calcium deposits in the spine. What are the signs or symptoms? Symptoms of this condition include: Pain in the neck or back that is generally worse with activities, particularly when standing and walking. Numbness, tingling, hot or cold sensations, weakness, or weariness in your legs. Pain going up and down the leg (sciatica). Frequent episodes of falling. A foot-slapping gait that leads to muscle weakness. In more serious cases, you may develop: Problems passing stool or passing urine. Difficulty having sex. Loss of feeling in part or all of your leg. Symptoms may come on slowly and get worse over time. How is this diagnosed? This condition is diagnosed based on your medical history and a physical exam. Tests will also be done, such as: MRI. CT scan. X-ray. How is this treated? Treatment for this condition often focuses on managing your pain and any other symptoms. Treatment may include: Practicing good posture to lessen pressure on your nerves. Exercising to strengthen muscles, build endurance, improve balance, and maintain good joint movement (range of motion). Losing weight, if needed. Taking medicines to reduce swelling, inflammation, or pain. Assistive devices, such as a corset or brace. In some cases, surgery may be needed. The most common procedure is decompression laminectomy. This is done to remove excess bone that puts pressure on your nerve roots. Follow these instructions at home: Managing pain, stiffness, and swelling Do all exercises and stretches as told by your health care provider. Practice good posture. If you were given a brace or a corset, wear it as told by your health care provider. Do not do any activities that cause pain. Ask your health care provider what activities are safe for you. Do not lift anything that is heavier than 10 lb (4.5 kg) or the limit that your health care provider tells you. Maintain a healthy weight. Talk with your health care provider if you need help losing weight. If directed, apply heat to the affected area as often as told by your health care provider. Use the heat source that your health care provider recommends, such as a moist heat pack or a heating pad. ? Place a towel between your skin and the heat source. ? Leave the heat on for 20 30 minutes. ? Remove the heat if your skin turns bright red. This is especially important if you are not able to feel pain, heat, or cold. You may have a greater risk of getting burned. General instructions Take [id number] and prescription medicines only as told by your health care provider. Do not use any products that contain nicotine or tobacco, such as cigarettes and e-cigarettes. If you need help quitting, ask your health care provider. Eat a healthy diet. This includes plenty of fruits and vegetables, whole grains, and low-fat (lean) protein. Keep all follow-up visits as told by your health care provider. This is important. Contact a health care provider if: Your symptoms do not get better or they get worse. You have a fever. Get help right away if: You have new or worse pain in your neck or upper back. You have severe pain that cannot be controlled with medicines. You are dizzy. You have vision problems, blurred vision, or double vision. You have a severe headache that is worse when you stand. You have nausea or you vomit. You develop new or worse numbness or tingling in your back or legs. You have pain, redness, swelling, or warmth in your arm or leg. Summary Spinal stenosis occurs when the open space (spinal canal) between the bones of your spine (vertebrae) narrows. This narrowing puts pressure on the spinal cord or nerves. Spinal stenosis can cause numbness, weakness, or pain in the neck, back, and legs. This condition may be caused by a defect, arthritic deterioration of your vertebrae, injury, tumors, or calcium deposits. This condition is usually diagnosed with MRIs, CT scans, and X-rays. This information is not intended to replace advice given to you by your health care provider. Make sure you discuss any questions you have with your health care provider. Document Released: 10/20/2004 Document Revised: 07/13/2018 Document Reviewed: 07/05/2017 [employer] Patient Education 2020 [employer]. Weakness Weakness is a lack of strength. You may feel weak all over your body (generalized), or you may feel weak in one part of your body (focal). There are many potential causes of weakness. Sometimes, the cause of your weakness may not be known. Some causes of weakness can be serious, so it is important to see your doctor. Follow these instructions at home: Activity Rest as needed. Try to get enough sleep. Most adults need 7 8 hours of sleep each night. Talk to your doctor about how much sleep you need each night. Do exercises, such as arm curls and leg raises, for 30 minutes at least 2 days a week or as told by your doctor. Think about working with a physical therapist or graduate assistant athletic trainer to help you get stronger. General instructions Take yywh-ggw-jpnjlaw and prescription medicines only as told by your doctor. Eat a healthy, well-balanced diet. This includes: ? Proteins to build muscles, such as lean meats and fish. ? Fresh fruits and vegetables. ? Carbohydrates to boost energy, such as whole grains. Drink enough fluid to keep your pee (urine) pale yellow. Keep all follow-up visits as told by your doctor. This is important. Contact a doctor if: Your weakness does not get better or it gets worse. Your weakness affects your ability to: ? Think clearly. ? Do your normal daily activities. Get help right away if you: Have sudden weakness on one side of your face or body. Have chest pain. Have trouble breathing or shortness of breath. Have problems with your vision. Have trouble talking or swallowing. Have trouble standing or walking. Are light-headed. Pass out (lose consciousness). Summary Weakness is a lack of strength. You may feel weak all over your body or just in one part of your body. There are many potential causes of weakness. Sometimes, the cause of your weakness may not be known. Rest as needed, and try to get enough sleep. Most adults need 7 8 hours of sleep each night. Eat a healthy, well-balanced diet. This information is not intended to replace advice given to you by your health care provider. Make sure you discuss any questions you have with your health care provider. Document Released: 07/13/2009 Document Revised: 03/06/2019 Document Reviewed: 03/06/2019 [employer] Patient Education 2020 [employer]. Additional Information VACCINATE! IT SAVES LIVES! Members of the community who have not yet received the COVID-19 vaccine and would like to receive it can visit one of [facility] vaccine clinics. There are many vaccine clinic locations within the [facility]. For locations and available times, please visit [email or web address] It is important to note that some COVID mobile vaccine clinics are held outdoors and may be canceled in rainy or stormy conditions. To learn more about pediatric vaccinations (ages 5-11), we invite you to visit the [facility] webpage. [email or web address]/page [email or web address]-[email or web address]-[email or web address] -[email or web address]-Questions.[email or web address] To learn more about the COVID-19 vaccine, we invite you to visit the CDC website for a list of frequently asked questions.https://www.cdc.gov/coron avirus/2019-ncov/vaccines/faq.html [facility] Patient Portal Access Instructions: Stay connected with your healthcare team and access your personal medical information anytime with the [facility] Patient Portal. Please follow the directions below to create your [facility] account: 1.Access the email account you provided upon registration to the hospital/physician office.2.Look for an invitation email from [facility].3.Open the email and access the invitation link: Accept Invitation to [facility].4.Fill in the required choudhury to create your account. To access your account, visit [email or web address]. Click the blue button labeled "Access Patient Portal" and then log in with the username and password that you created in the steps above. You will be able to view your test results, lab results, a summary of your visits, upcoming appointments and more. There is also a convenient messaging option where you can send secure messages to your provider. In addition, you will have the ability to download any documents or summaries to your computer and/or send the information securely to a physician. Remember that your healthcare information is confidential, so carefully consider who you will allow to register on the [facility] Patient Portal for access to your information. You can also access the [facility] Patient Portal on the [facility]. Simply click on "Patient Portal" and then log into your account. If you would like to receive a full copy of your medical records, please contact the [facility] Medical Records Department by calling [phone], Monday through Monday between 8 a.m. and 4:30 p.m. HOW TO SAFELY DISPOSE OF PRESCRIPTION MEDICATIONS Please use one of the following methods to safely dispose of your unused medications. 1.Use a drug disposal kit: the drug disposal pouch allows you to safely discard your old and unused drugs. Ask your nurse to give you one when you are discharged.2.Visit a local take-back location: Many local pharmacies and police departments have programs that collect old and unwanted prescription drugs. Call your local pharmacy or go to http://Yuyuto.Red e App/1S5Ih7p to find one close to you.3.Make use of household items: Use cat litter or old coffee grounds to dispose medications if other options are not available. Mix your drugs with these household products, seal them in an airtight container and throw it into the garbage. Call [facility]: [phone] to be sure your drugs can be disposed of in this way. Some medicines may require a different approach.4.Never flush your medications down the toilet. IF YOU HAVE BEEN PRESCRIBED AN OPIOID FOR PAIN If you have been prescribed an opioid (such as hydrocodone, oxycodone or morphine), it is critical to understand the possible side effects and risks of opioid pain medications. Even when taken as directed, opioids can have several side effects including: Tolerance, meaning you might need to take more of a medication for the same pain relief. Nausea, vomiting and/or constipation. Sleepiness, dizziness, dry mouth, confusion, depression or itching. Physical dependence, meaning you have withdrawal symptoms when a medication is stopped, can develop within a few days. KNOW YOUR RESPONSIBILITIES It is important to know exactly how much and how often to take the opioid pain medications you are prescribed. Never take opioids in higher amounts or more often than prescribed. Do not combine opioids with alcohol or other drugs that cause drowsiness, such as benzodiazepines, also known as benzos, including diazepam and alprazolam, muscle relaxants or sleep aids. Never sell or share prescription opioids. This is illegal. Store opioids in a secure place and out of reach of others (including children, family, friends and visitors). The last page of this document has been signed and retained as a CHART COPY. Signatures Patient Education Materials Spinal Stenosis Weakness, [id number]-[id number] Medication Leaflets My discharge plan and instructions have been reviewed and explained to me and I,MITCHELL BROOKS understand my current condition and have read and understand these discharge instructions. I have received a written copy of the plan/instructions. If I have questions, I am aware that I should contact my doctor. 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 What are the causes? This condition is caused by areas of bone pushing into the central canals of your vertebrae. This condition may be present at (congenital), or it may be caused by: Arthritic deterioration of your vertebrae (spinal degeneration). This usually starts around age 50. Injury or trauma to the spine. Tumors in the spine. Calcium deposits in the spine. What are the signs or symptoms? Symptoms of this condition include: Pain in the neck or back that is generally worse with activities, particularly when standing and walking. Numbness, tingling, hot or cold sensations, weakness, or weariness in your legs. Pain going up and down the leg (sciatica). Frequent episodes of falling. A foot-slapping gait that leads to muscle weakness. In more serious cases, you may develop: Problems passing stool or passing urine. Difficulty having sex. Loss of feeling in part or all of your leg. Symptoms may come on slowly and get worse over time. How is this diagnosed? This condition is diagnosed based on your medical history and a physical exam. Tests will also be done, such as: MRI. CT scan. X-ray. How is this treated? Treatment for this condition often focuses on managing your pain and any other symptoms. Treatment may include: Practicing good posture to lessen pressure on your nerves. Exercising to strengthen muscles, build endurance, improve balance, and maintain good joint movement (range of motion). Losing weight, if needed. Taking medicines to reduce swelling, inflammation, or pain. Assistive devices, such as a corset or brace. In some cases, surgery may be needed. The most common procedure is decompression laminectomy. This is done to remove excess bone that puts pressure on your nerve roots. Follow these instructions at home: Managing pain, stiffness, and swelling Do all exercises and stretches as told by your health care provider. Practice good posture. If you were given a brace or a corset, wear it as told by your health care provider. Do not do any activities that cause pain. Ask your health care provider what activities are safe for you. Do not lift anything that is heavier than 10 lb (4.5 kg) or the limit that your health care provider tells you. Maintain a healthy weight. Talk with your health care provider if you need help losing weight. If directed, apply heat to the affected area as often as told by your health care provider. Use the heat source that your health care provider recommends, such as a moist heat pack or a heating pad. ?Place a towel between your skin and the heat source. ?Leave the heat on for 20 30 minutes. ?Remove the heat if your skin turns bright red. This is especially important if you are not able to feel pain, heat, or cold. You may have a greater risk of getting burned. General instructions Take ugpy-ejn-fwwinqg and prescription medicines only as told by your health care provider. Do not use any products that contain nicotine or tobacco, such as cigarettes and e-cigarettes. If you need help quitting, ask your health care provider. Eat a healthy diet. This includes plenty of fruits and vegetables, whole grains, and low-fat (lean) protein. Keep all follow-up visits as told by your health care provider. This is important. Contact a health care provider if: Your symptoms do not get better or they get worse. You have a fever. Get help right away if: You have new or worse pain in your neck or upper back. You have severe pain that cannot be controlled with medicines. You are dizzy. You have vision problems, blurred vision, or double vision. You have a severe headache that is worse when you stand. You have nausea or you vomit. You develop new or worse numbness or tingling in your back or legs. You have pain, redness, swelling, or warmth in your arm or leg. Summary Spinal stenosis occurs when the open space (spinal canal) between the bones of your spine (vertebrae) narrows. This narrowing puts pressure on the spinal cord or nerves. Spinal stenosis can cause numbness, weakness, or pain in the neck, back, and legs. This condition may be caused by a defect, arthritic deterioration of your vertebrae, injury, tumors, or calcium deposits. This condition is usually diagnosed with MRIs, CT scans, and X-rays. This information is not intended to replace advice given to you by your health care provider. Make sure you discuss any questions you have with your health care provider. Document Released: 10/20/2004 Document Revised: 07/13/2018 Document Reviewed: 07/05/2017 [employer] Patient Education 2020 [employer]. 01/23/2025 13:34:24 Weakness, Wlmb-ko-Yqnz Weakness Weakness is a lack of strength. You may feel weak all over your body (generalized), or you may feel weak in one part of your body (focal). There are many potential causes of weakness. Sometimes, the cause of your weakness may not be known. Some causes of weakness can be serious, so it is important to see your doctor. Follow these instructions at home: Activity Rest as needed. Try to get enough sleep. Most adults need 7 8 hours of sleep each night. Talk to your doctor about how much sleep you need each night. Do exercises, such as arm curls and leg raises, for 30 minutes at least 2 days a week or as told by your doctor. Think about working with a physical therapist or graduate assistant athletic trainer to help you get stronger. General instructions Take xpbv-jzw-ywlyfuk and prescription medicines only as told by your doctor. Eat a healthy, well-balanced diet. This includes: ?Proteins to build muscles, such as lean meats and fish. ?Fresh fruits and vegetables. ?Carbohydrates to boost energy, such as whole grains. Drink enough fluid to keep your pee (urine) pale yellow. Keep all follow-up visits as told by your doctor. This is important. Contact a doctor if: Your weakness does not get better or it gets worse. Your weakness affects your ability to: ?Think clearly. ?Do your normal daily activities. Get help right away if you: Have sudden weakness on one side of your face or body. Have chest pain. Have trouble breathing or shortness of breath. Have problems with your vision. Have trouble talking or swallowing. Have trouble standing or walking. Are light-headed. Pass out (lose consciousness). Summary Weakness is a lack of strength. You may feel weak all over your body or just in one part of your body. There are many potential causes of weakness. Sometimes, the cause of your weakness may not be known. Rest as needed, and try to get enough sleep. Most adults need 7 8 hours of sleep each night. Eat a healthy, well-balanced diet. This information is not intended to replace advice given to you by your health care provider. Make sure you discuss any questions you have with your health care provider. Document Released: 07/13/2009 Document Revised: 03/06/2019 Document Reviewed: 03/06/2019 [employer] Patient Education 2020 [employer] Follow Up Care 01/09/2025 09:52:50 With:ANNETTE SAMANO FUNERAL DIRECTOR'S ASSISTANT-PRODUCT DEVELOPMENT INTERN Address: [address] [place] [phone] When:3-5 days Comments:Please call to schedule your post-hospital follow-up appointment. With:LEEANN KING MD, Neurosurgery Address: [address] [place] [address]- [phone] When:02/17/2025 14:30:00 Comments:This is your neurosurgery appointment. Follow-up as scheduled. [facility] 01-21-2025 Note Date of Service 01/21/2025 Chief Complaint Ischemia Subjective 49-year-old female with past medical history significant for HTN, HLD, paroxysmal atrial fibrillation not anticoagulated, COPD, neuropathy, fibromyalgia, bipolar disorder, anxiety, GERD, pulmonary hypertension, IBS, hypothyroidism, morbid obesity, lumbar spinal stenosis, chronic pain following with pain management. Patient originally presented to [facility] 01/01/2025 with acute on chronic back pain that was limiting her mobility. CT lumbar spine at outside hospital done 12/25 that was limited due to body habitus however it did show narrowing of the canal and foramina in the lower lumbar region. MRI of the lumbar spine done at [place] showing bilateral facet joint cyst L3-L4 resulting in severe canal stenosis. Patient was also noted to have a large midsternal hematoma extending out laterally to both breasts. She denied any trauma. Does take Plavix. CT of the chest with contrast showed large deep right breast/chest wall hematoma. Prominent adjacent induration could be inflammatory or represent contusion. Patient was transferred to [facility] with consults to neurosurgery, hematology, general surgery. She was a surgical candidate but opted for nonsurgical intervention. She underwent epidural injection on 01/07/2025. For chest hematoma she was evaluated by hematology and general surgery. Plan was for patient to follow-up with general surgery, Dr. Lion, in 2 weeks. She was evaluated by therapy with recommendation for inpatient rehab. She was subsequently admitted to [facility]. Patient has been progressing well with therapy services. She was able to ambulate short distances ranging from 15 feet to 25 feet with front wheeled walker. Her mobility is limited by pain. Only concern today is yeasty odor and drainage From umbilicus. Objective Vitals and Measurements T: 36.4 C (Oral) TMIN: 36.4 C (Oral) TMAX: 36.7 C (Oral) HR: 62 (Apical) RR: 18 BP: 105/63 SpO2: 96% Intake and Output 7AM Yesterday to 7AM Today Intake and Output (Last 24 hours) Intake Oral Intake 900.00 Supplement Intake 237.00 Output Stool Count 1.00 Urine Count 4.00 Emesis Count 0.00 Total Summary Total Intake 1137.00 Total Output 0.00 Fluid Balance 1137.00 Physical Exam GEN: Appears chronically ill CHEST: Normal S1 and S2. Rhythm is regular. Clear to auscultation, without rales, rhonchi, wheezing. ABD: Positive bowel sounds x 4 quads. Soft, nondistended, nontender. EXT: No significant deformity or joint abnormality. No edema. Peripheral pulses intact. NEURO: BLE sensation decreased though sensation is better on left than the right. PSYCH: The mental examination revealed the patient was alert and oriented x 4 Weight Current Weight Dosing Weight: 144.1 kg (01/09/25) Current Weight: 145.6 kg (01/17/25) Medications Medications (35) Active Scheduled: (21) bacitracin topical 500 units/g Ointment TUBE 1 kvng, Topical, BID brexpiprazole 1 mg tablet 1 mg 1 tab(s), Oral, qDay budesonide 0.5 mg/2 mL Susp UD 0.5 mg 2 mL, Inhalation, BIDRT clopidogrel 75 mg Tablet 75 mg 1 tab(s), Oral, qDay clotrimazole topical 1% Cream 28 Gram(s) 1 kvng, Topical, BID colestipol 1 gm tablet 1 gram(s) 1 tab(s), Oral, BID dicyclomine 10 mg capsule 10 mg 1 cap(s), Oral, QID famotidine 20 mg tablet 40 mg 2 tab(s), Oral, qHS levothyroxine 50 mcg tablet 50 mcg 1 tab(s), Oral, qDay loratadine 10 mg Tablet 10 mg 1 tab(s), Oral, qDay metoprolol tartrate 25 mg tablet 25 mg 1 tab(s), Oral, BID miconazole topical 2% Powder 1 kvng, Topical, BID montelukast 10 mg Tablet 10 mg 1 tab(s), Oral, qDay multivitamin (Myadec) with minerals Therapeutic Multiple Vitamins with Minerals Tablet 1 tab(s), Oral, qDayM Nicoderm patch REMOVAL 1 EA, Miscellaneous, q24h nicotine 21 mg/24 hr ER patch 21 mg 1 patch(es), Transdermal, q24h oxybutynin 5 mg Tablet 5 mg 1 tab(s), Oral, TID pantoprazole 20 mg EC tablet 40 mg 2 tab(s), Oral, BID pregabalin 25 mg capsule 75 mg 3 cap(s), Oral, TID QUEtiapine 100 mg tablet 50 mg 0.5 tab(s), Oral, qHS sertraline 50 mg tablet 25 mg 0.5 tab(s), Oral, qDay Continuous: (0) PRN: (14) acetaminophen 325 mg Tablet 650 mg 2 tab(s), Oral, q4h acetaminophen 325 mg Tablet 650 mg 2 tab(s), Oral, q4h acetaminophen-OXYcodone 325 mg-5 mg Tablet 1 tab(s), Oral, q4h Al hydrox/Mg hydrox/simethicone 200-200-20 mg/5 mL Susp UD 15 mL, Oral, q4h benztropine 1 mg Tablet 0.5 mg 0.5 tab(s), Oral, BID bismuth subsalicylate 262 mg/15 mL 240 mL 30 mL, Oral, q30min diclofenac topical 1% Gel 50 g 4 gram(s), Topical, QID docusate sodium 100 mg Capsule 100 mg 1 cap(s), Oral, BID guaifenesin 100 mg/5 mL Liquid 120 mL 200 mg 10 mL, Oral, q4h hydroxyzine hcl 10 mg Tablet 25 mg 2.5 tab(s), Oral, TID loperamide 2 mg capsule 2 mg 1 cap(s), Oral, TID melatonin 3 mg tablet 6 mg 2 tab(s), Oral, qHS menthol (Biofreeze) gel packet 1 kvng, Topical, TID polyethylene glycol 3350 - UD packet 17 gram(s) 15 mL, Oral, BID Assessment/Plan 1. Asthenia 2. Lumbar spinal stenosis 3. Fibromyalgia 4. Chronic pain 5. Chronic obstructive pulmonary disease (COPD) Asthenia- Continue PT and PT. Lumbar spinal stenosis Patient underwent epidural injection 01/07/2025 at [facility]. She is due to follow-up with neurosurgery in February. Chronic pain and fibromyalgia patient follows with pain management. Continue Lyrica, as needed Percocet and topical diclofenac. Patient would benefit from follow-up with pain management. COPD not in acute exacerbation. Continue budesonide. Chest hematoma patient has follow-up appointment with Dr. Lion on 01/23/2025. Umbilicus drainage- Add miconozole to umbilicus BID Code Status: Full code Plan of care discussed with patient. All questions answered. Patient verbalizes understanding is agreeable to plan of care. This dictation was performed using voice recognition software and may include grammatical and/or spelling errors. CPT 56322 Time Spent 28 minutes Digitally Signed by WEST SPENCER on 01/21/2025 02:13 PM [facility] 01-16-2025 Note Date of Service 01/16/2025 Chief Complaint Asthenia, lumbar spinal stenosis Subjective 49-year-old female with past medical history significant for HTN, HLD, paroxysmal atrial fibrillation not anticoagulated, COPD, neuropathy, fibromyalgia, bipolar disorder, anxiety, GERD, pulmonary hypertension, IBS, hypothyroidism, morbid obesity, lumbar spinal stenosis, chronic pain following with pain management. Patient originally presented to [facility] 01/01/2025 with acute on chronic back pain that was limiting her mobility. CT lumbar spine at outside hospital done 12/25 that was limited due to body habitus however it did show narrowing of the canal and foramina in the lower lumbar region. MRI of the lumbar spine done at [place] showing bilateral facet joint cyst L3-L4 resulting in severe canal stenosis. Patient was also noted to have a large midsternal hematoma extending out laterally to both breasts. She denied any trauma. Does take Plavix. CT of the chest with contrast showed large deep right breast/chest wall hematoma. Prominent adjacent induration could be inflammatory or represent contusion. Patient was transferred to [facility] with consults to neurosurgery, hematology, general surgery. She was a surgical candidate but opted for nonsurgical intervention. She underwent epidural injection on 01/07/2025. For chest hematoma she was evaluated by hematology and general surgery. Plan was for patient to follow-up with general surgery, Dr. Lion, in 2 weeks. She was evaluated by therapy with recommendation for inpatient rehab. She was subsequently admitted to [facility]. Patient has been progressing well with therapy services. She was able to ambulate short distances ranging from 15 feet to 25 feet with front wheeled walker. Her mobility is limited by pain. On exam today, patient states that overall she has improved. She is limited by pain with ambulation. She follows with Dr. Acevedo, pain management. She has no complaints otherwise. No urinary symptoms. Objective Vitals and Measurements T: 36.4 C (Oral) TMIN: 36.4 C (Oral) TMAX: 36.6 C (Oral) HR: 74 (Apical) RR: 20 BP: 114/77 SpO2: 96% Intake and Output 7AM Yesterday to 7AM Today Intake and Output (Last 24 hours) Intake Oral Intake 400.00 Supplement Intake 50.00 Output Urine Count 6.00 Total Summary Total Intake 450.00 Total Output 0.00 Fluid Balance 450.00 Physical Exam GEN: Appears chronically ill CHEST: Normal S1 and S2. Rhythm is regular. Clear to auscultation, without rales, rhonchi, wheezing. ABD: Positive bowel sounds x 4 quads. Soft, nondistended, nontender. EXT: No significant deformity or joint abnormality. No edema. Peripheral pulses intact. NEURO: BLE sensation decreased though sensation is better on left than the right. PSYCH: The mental examination revealed the patient was alert and oriented x 4 Weight Dosing Weight: 144.1 kg (01/09/25) Medications Medications (33) Active Scheduled: (19) brexpiprazole 1 mg tablet 1 mg 1 tab(s), Oral, qDay budesonide 0.5 mg/2 mL Susp UD 0.5 mg 2 mL, Inhalation, BIDRT clopidogrel 75 mg Tablet 75 mg 1 tab(s), Oral, qDay colestipol 1 gm tablet 1 gram(s) 1 tab(s), Oral, BID dicyclomine 10 mg capsule 10 mg 1 cap(s), Oral, QID famotidine 20 mg tablet 40 mg 2 tab(s), Oral, qHS levothyroxine 50 mcg tablet 50 mcg 1 tab(s), Oral, qDay loratadine 10 mg Tablet 10 mg 1 tab(s), Oral, qDay metoprolol tartrate 25 mg tablet 25 mg 1 tab(s), Oral, BID miconazole topical 2% Powder 1 kvng, Topical, BID montelukast 10 mg Tablet 10 mg 1 tab(s), Oral, qDay multivitamin (Myadec) with minerals Therapeutic Multiple Vitamins with Minerals Tablet 1 tab(s), Oral, qDayM Nicoderm patch REMOVAL 1 EA, Miscellaneous, q24h nicotine 21 mg/24 hr ER patch 21 mg 1 patch(es), Transdermal, q24h oxybutynin 5 mg Tablet 5 mg 1 tab(s), Oral, TID pantoprazole 20 mg EC tablet 40 mg 2 tab(s), Oral, BID pregabalin 25 mg capsule 75 mg 3 cap(s), Oral, TID QUEtiapine 100 mg tablet 50 mg 0.5 tab(s), Oral, qHS sertraline 50 mg tablet 25 mg 0.5 tab(s), Oral, qDay Continuous: (0) PRN: (14) acetaminophen 325 mg Tablet 650 mg 2 tab(s), Oral, q4h acetaminophen 325 mg Tablet 650 mg 2 tab(s), Oral, q4h acetaminophen-OXYcodone 325 mg-5 mg Tablet 1 tab(s), Oral, q4h Al hydrox/Mg hydrox/simethicone 200-200-20 mg/5 mL Susp UD 15 mL, Oral, q4h benztropine 1 mg Tablet 0.5 mg 0.5 tab(s), Oral, BID bismuth subsalicylate 262 mg/15 mL 240 mL 30 mL, Oral, q30min diclofenac topical 1% Gel 50 g 4 gram(s), Topical, QID docusate sodium 100 mg Capsule 100 mg 1 cap(s), Oral, BID guaifenesin 100 mg/5 mL Liquid 120 mL 200 mg 10 mL, Oral, q4h hydroxyzine hcl 10 mg Tablet 25 mg 2.5 tab(s), Oral, TID loperamide 2 mg capsule 2 mg 1 cap(s), Oral, TID melatonin 3 mg tablet 6 mg 2 tab(s), Oral, qHS menthol (Biofreeze) gel packet 1 kvng, Topical, TID polyethylene glycol 3350 - UD packet 17 gram(s) 15 mL, Oral, BID Assessment/Plan 1. Asthenia 2. Lumbar spinal stenosis 3. Fibromyalgia 4. Chronic pain 5. Chronic obstructive pulmonary disease (COPD) Asthenia- Continue PT and PT. Lumbar spinal stenosis Patient underwent epidural injection 01/07/2025 at [facility]. She is due to follow-up with neurosurgery in February. Chronic pain and fibromyalgia patient follows with pain management. Continue Lyrica, as needed Percocet and topical diclofenac. Patient would benefit from follow-up with pain management. COPD not in acute exacerbation. Continue budesonide. Chest hematoma patient has follow-up appointment with Dr. Lion on 01/23/2025. Code Status: Full code Plan of care discussed with patient. All questions answered. Patient verbalizes understanding is agreeable to plan of care. This dictation was performed using voice recognition software and may include grammatical and/or spelling errors. CPT 99194 Time Spent 30 minutes Digitally Signed by WEST SPENCER on 01/16/2025 12:24 PM [facility] 01-16-2025 Note . MICRO - Microbiology PROCEDURE: Urine Culture [O1 *1] SOURCE: Urine BODY SITE: COLLECTED DATE/TIME: 01/14/2025 09:43 EDT RECEIVED DATE/TIME: 01/14/2025 14:16 EDT START DATE/TIME: 01/14/2025 14:16 EDT FREE TEXT SOURCE: FINAL REPORTS Final Report [] Verified Date/Time/Personnel: 01/16/2025 07:07 EDT >100,000 cfu/ml Multiple bacterial morphotypes present. Probable Contamination. Suggest recollection if clinically indicated. PRELIMINARY REPORTS Preliminary Report [] Verified Date/Time/Personnel: 01/15/2025 08:11 EDT Culture results pending. Preliminary Report [] Verified Date/Time/Personnel: 01/14/2025 14:59 EDT Specimen received in lab. Order Comments O1: Urine Culture Added by Discern Performing Locations *1: This test was performed at: [facility], [address] [place] [address], [id number] , [facility] 01-15-2025 Pastoral care Progress note Pastoral Care Note Entered On: 01/15/2025 8:59 EDT Performed On: 01/15/2025 8:55 EDT by Mauro Lara On License Of [facility] Type of Pastoral Visit : Follow up visit Spiritual Care Visit Initiated by : Consult/Referral Spiritual Care Reason for Visit : General Pastoral Care Referral From : Patient Spiritual Assessment : Faithful, Positive Image of God Spiritual Care Emotional Assessment : Thoughtful/Reflective, Feeling Helpless Spiritual Care Intervention : Active listening, Validation of Feelings, Supportive presence, Explore Spiritual Needs, Explore Emotional Needs, Prayer with Patient/Family Spiritual Outcomes : Expresses Gratitude, Expresses Valarie, Set realistic goals Spiritual Plan of Care : Visit as Requested Pastoral Care Comments : patient is having her breakfast but welcomes this food or baggage handling rampman to sit with her; pt talks about valarie that God is with her and will help her while also admitting that she has many 'ups and downs'; pt is realistic about her challenges with mobility and getting strong enough to return home; pt refers to her therapy processes and needing courage and strength; pt welcomes presence and prayer Pastoral Care Visit Length : 15 minute(s) Mauro Lara - 01/15/2025 8:55 EDT Digitally Signed by Mauro Lara on 01/15/2025 08:55 AM [facility] 01-12-2025 Note Date of Service 01/12/2025 Chief Complaint weakness Subjective Patient seen and evaluated this morning at her request. She states that therapy does not want her using the purewick at night since she came to the TCU. She has been soaking the bed at night because she is so groggy that she cannot wake up in time to get to the bedside commode. Patient asking if she can cut back on her Seroquel at night from 100 mg to 50 mg so that she can wake up. Patient advised that we want her to be mentally focused on her therapy while she is here. Cutting it back could be an issue for her mental health. Patient states that she is focused on getting stronger so that she can get home. She wants to try an adjustment to see if it helps her to wake up in time to use the BSC. She is also asking if there is any room for adjustment in her oxybutynin. She is getting 5 mg PO BID currently and it looks like she could get it four times daily. Will increase to TID for now and see if that helps. Patient also has concerns because her lower legs bilaterally are pink/dusky. Patient advised that she most likely has venous insufficiency as her legs are cool to touch and it is bilateral. We could try wraps or GRABIEL hose to help with circulation. Patient states she alternates between being up in the chair and putting her legs up in bed. Patient advised to notify [employer] if they are warm to touch and take on more of a bright pink appearance. Patient denies any fever, chills, cough, shortness of breath, chest pain, abdominal pain, nausea or dysuria. All questions answered. Objective Vitals and Measurements T: 36.4 C (Oral) TMIN: 36.4 C (Oral) TMAX: 36.6 C (Oral) HR: 84 RR: 18 BP: 113/45 SpO2: 98% Intake and Output 7AM Yesterday to 7AM Today Intake and Output (Last 24 hours) Intake Oral Intake 300.00 Supplement Intake 200.00 Output Urine Count 2.00 Total Summary Total Intake 500.00 Total Output 0.00 Fluid Balance 500.00 Physical Exam General: No acute distress. Patient is alert and appropriate. Skin: No rash. Skin is warm, dry and intact. HEENT: Head is normocephalic, atraumatic. Pupils are equal, round and reactive. Neck: Supple. No lymphadenopathy, thyromegaly. Lungs: Bilaterally clear but diminished without crepitation or wheeze. Unlabored. Heart: Heart is regular rhythm, S1, S2. No murmurs, gallops or rubs. Abdomen: Abdomen is soft, nontender, morbid obesity. Bowels sounds present in all quadrants. Extremities: No clubbing, cyanosis, or edema. Peripheral pulses palpable. No calf tenderness. Bilateral lower legs pink/dusky, cool to touch. Neurological: Patient is awake and alert to person, place and time. Following simple commands, moving all extremities. Weight Dosing Weight: 144.1 kg (01/09/25) Medications Medications (33) Active Scheduled: (19) brexpiprazole 1 mg tablet 1 mg 1 tab(s), Oral, qDay budesonide 0.5 mg/2 mL Susp UD 0.5 mg 2 mL, Inhalation, BIDRT clopidogrel 75 mg Tablet 75 mg 1 tab(s), Oral, qDay colestipol 1 gm tablet 1 gram(s) 1 tab(s), Oral, BID dicyclomine 10 mg capsule 10 mg 1 cap(s), Oral, QID famotidine 20 mg tablet 40 mg 2 tab(s), Oral, qHS levothyroxine 50 mcg tablet 50 mcg 1 tab(s), Oral, qDay loratadine 10 mg Tablet 10 mg 1 tab(s), Oral, qDay metoprolol tartrate 25 mg tablet 25 mg 1 tab(s), Oral, BID miconazole topical 2% Powder 1 kvng, Topical, BID montelukast 10 mg Tablet 10 mg 1 tab(s), Oral, qDay multivitamin (Myadec) with minerals Therapeutic Multiple Vitamins with Minerals Tablet 1 tab(s), Oral, qDayM Nicoderm patch REMOVAL 1 EA, Miscellaneous, q24h nicotine 21 mg/24 hr ER patch 21 mg 1 patch(es), Transdermal, q24h oxybutynin 5 mg Tablet 5 mg 1 tab(s), Oral, TID pantoprazole 20 mg EC tablet 40 mg 2 tab(s), Oral, BID pregabalin 25 mg capsule 75 mg 3 cap(s), Oral, TID QUEtiapine 50 mg tablet 50 mg 1 tab(s), Oral, qHS sertraline 50 mg tablet 25 mg 0.5 tab(s), Oral, qDay Continuous: (0) PRN: (14) acetaminophen 325 mg Tablet 650 mg 2 tab(s), Oral, q4h acetaminophen 325 mg Tablet 650 mg 2 tab(s), Oral, q4h acetaminophen-OXYcodone 325 mg-5 mg Tablet 1 tab(s), Oral, q4h Al hydrox/Mg hydrox/simethicone 200-200-20 mg/5 mL Susp UD 15 mL, Oral, q4h benztropine 1 mg Tablet 0.5 mg 0.5 tab(s), Oral, BID bismuth subsalicylate 262 mg/15 mL 240 mL 30 mL, Oral, q30min diclofenac topical 1% Gel 50 g 4 gram(s), Topical, QID docusate sodium 100 mg Capsule 100 mg 1 cap(s), Oral, BID guaifenesin 100 mg/5 mL Liquid 120 mL 200 mg 10 mL, Oral, q4h hydroxyzine hcl 10 mg Tablet 25 mg 2.5 tab(s), Oral, TID loperamide 2 mg capsule 2 mg 1 cap(s), Oral, TID melatonin 3 mg tablet 6 mg 2 tab(s), Oral, qHS menthol (Biofreeze) gel packet 1 kvng, Topical, TID polyethylene glycol 3350 - UD packet 17 gram(s) 15 mL, Oral, BID Lab Results No 36 Hour Lab Data EKG No qualifying data available. Assessment/Plan 1. Asthenia Consult placed to PT and OT - following. 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 Insurance update due 01/20. 2. Bipolar disorder Chronic. Continue current home medications. Decreased Seroquel to 50 mg PO qhs due to patient request as she is groggy and not being able to make it to the [facility]. Ordered: 3. Chronic obstructive pulmonary disease (COPD) Chronic, not in exacerbation. Continue duoneb aerosols as needed for shortness of breath/wheezing. 4. Tobacco use Chronic. Encourage cessation. May have nicotine patch daily. 5. Morbid obesity Chronic, complicating all aspects of care. Encourage diet and exercise. 6. IBS (irritable bowel syndrome) Chronic. Continue loperamide PRN for diarrhea. Continue colestipol PO BID. 7. Essential hypertension Chronic. Continue current antihypertensives. SBP goal of 140 or less. overactive bladder - increased oxybutynin to 5 mg PO TID. DVT prophylaxis with SCDs. Code status: Full Code. Labs, diagnostic test and progress notes reviewed as noted in HPI. Plan of care discussed with patient. All questions answered. Patient verbalizes understanding and is agreeable with plan of care. This case was discussed with collaborating physician, Dr. Justin Tijerina. Anticipated Date of Discharge unsure at this point - insurance update due 01/20 Time Spent 36 minutes spent reviewing past diagnostic tests, reviewing lab results, vital sign trends, medical history, reviewing medications and ordering home medications, examining patient, discussed plan of care with care team, collaborating with physician, and documenting in chart. CPT#79663 Digitally Signed by KEATON ETIENNE on 01/12/2025 09:44 AM [facility] 01-10-2025 Evaluation + Plan note Extrac grabiel from: Title:History and Physical Author:KEATON ETIENNE APRN-PRODUCT DEVELOPMENT INTERN Date:01/10/25 1. Asthenia Consult placed to PT and OT. 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 2. Bipolar disorder Chronic. Continue current home medications. Ordered: 3. Chronic obstructive pulmonary disease (COPD) Chronic, not in exacerbation. Continue duoneb aerosols as needed for shortness of breath/wheezing. 4. Tobacco use Chronic. Encourage cessation. May have nicotine patch daily. 5. Morbid obesity Chronic, complicating all aspects of care. Encourage diet and exercise. 6. IBS (irritable bowel syndrome) Chronic. Start loperamide PRN for diarrhea. Continue colestipol PO BID. 7. Essential hypertension Chronic. Continue current antihypertensives. SBP goal of 140 or less. DVT prophylaxis with SCDs. Code status: Full Code. Labs, diagnostic test and progress notes reviewed as noted in HPI. Plan of care discussed with patient. All questions answered. Patient verbalizes understanding and is agreeable with plan of care. This case was discussed with collaborating physician, Dr. Justin Tijerina. 54 minutes spent reviewing past diagnostic tests, reviewing lab results, vital sign trends, medical history, reviewing medications and ordering home medications, examining patient, discussed plan of care with care team, collaborating with physician, and documenting in chart. CPT# 19648 Future Appointments Appointment Date:02/17/2025 02:30:00 PM Scheduled Provider:LEEANN KING MD Location:NEUROS Appointment Type:NS OV Appointment Date:04/03/2025 02:00:00 PM Scheduled Provider:REUBEN LION JR, MD Location:Gen Surg [facility] Appointment Type: OV Check Up Future Scheduled Tests Laboratory* Thyroid Stimulating Hormone 06/23/24 * Complete Blood Count 06/23/24 * Lipid Profile 06/23/24 * Complete Metabolic Panel 06/23/24 [facility] 05-30-2025 Note Date of Service 01/10/2025 Chief Complaint weakness History of Present Illness Patient is a 49-year-old female, who follows with Annette Samano CNP with a past medical history significant for COPD, hypertension, dyslipidemia, atrial fibrillation, IBS, and morbid obesity, presented to [facility] swing program for ongoing rehab after a hospital stay at [facility]. Patient was initially admitted to [facility] on 01/01/2025 due to severe low back pain radiating down both legs. An MRI of the lumbar spine showed bilateral facet joint cyst [id number] in severe canal stenosis. She was transferred to [facility] for neurosurgery evaluation. Neurosurgery evaluated patient and felt that she was a candidate for excision of this cyst fordecompression. Patient was offered nonsurgical option of epidural injection. Patient opted to go for the nonsurgical route. She was on Plavix so that had to be held for 5 days prior to her getting the epidural injection. She was able to had the epidural injection yesterday by IR. Patient was also evaluated by hematology and general surgery due to right breast hematoma with concern for deep breastmass. No acute intervention was planned. Patient will need to follow- up with general surgery as an outpatient. PT and OT saw patient while she was admitted and recommended a rehab. Patient was medically optimized and transferred to [facility] yesterday. Patient seen and evaluated while resting in bed. Patient states that she is doing well today and denies any significant complaints of pain. She states she was doing well after the epidural injection yesterday until the squad brought her over. She is requesting a nicotine patch so we will get that ordered. Otherwise, she denies any needs at this time. Physical exam unremarkable. All questions answered. Later attended care conference with staff and patient. Review of Systems Review of Systems: Reviewed in detail, including general health, HEENT, cardiovascular, respiratory, gastrointestinal, genitourinary, endocrine, musculoskeletal, neurologic, vascular, skin, and psychiatric. All are negative except for those listed in the History of Present Illness. Physical Exam Vitals and Measurements T: 36.5 C (Oral) TMIN: 36.5 C (Oral) TMAX: 36.7 C (Oral) HR: 66 (Apical) RR: 20 BP: 111/68 SpO2: 94% HT: 157.5 cm WT: 144.1 kg BMI: 58.09 Weight Dosing Weight: 144.1 kg (01/09/25) General: No acute distress. Patient is alert and appropriate. Skin: No rash. Skin is warm, dry and intact. HEENT: Head is normocephalic, atraumatic. Pupils are equal, round and reactive. Neck: Supple. No lymphadenopathy, thyromegaly. Lungs: Bilaterally clear but diminished without crepitation or wheeze. Unlabored. Heart: Heart is regular rhythm, S1, S2. No murmurs, gallops or rubs. Abdomen: Abdomen is soft, nontender, morbidly obese. Bowels sounds present in all quadrants. Extremities: No clubbing, cyanosis, or edema. Peripheral pulses palpable. No calf tenderness. Neurological: Patient is awake and alert to person, place and time. Following simple commands, moving all extremities. Lab Results No 36 Hour Lab Data Assessment/Plan 1. Asthenia Consult placed to PT and OT. 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 2. Bipolar disorder Chronic. Continue current home medications. Ordered: 3. Chronic obstructive pulmonary disease (COPD) Chronic, not in exacerbation. Continue duoneb aerosols as needed for shortness of breath/wheezing. 4. Tobacco use Chronic. Encourage cessation. May have nicotine patch daily. 5. Morbid obesity Chronic, complicating all aspects of care. Encourage diet and exercise. 6. IBS (irritable bowel syndrome) Chronic. Start loperamide PRN for diarrhea. Continue colestipol PO BID. 7. Essential hypertension Chronic. Continue current antihypertensives. SBP goal of 140 or less. DVT prophylaxis with SCDs. Code status: Full Code. Labs, diagnostic test and progress notes reviewed as noted in HPI. Plan of care discussed with patient. All questions answered. Patient verbalizes understanding and is agreeable with plan of care. This case was discussed with collaborating physician, Dr. Justin Tijerina. 54 minutes spent reviewing past diagnostic tests, reviewing lab results, vital sign trends, medicalhistory, reviewing medications and ordering home medications, examining patient, discussed plan of care with care team, collaborating with physician, and documenting in chart. CPT# [id number] Problem List/Past Medical History Ongoing Angina at rest Anxiety Arthritis of both knees Arthritis of facet joint of lumbar spine Bipolar depression Bladder dysfunction Bladder incontinence Cellulitis Chronic obstructive pulmonary disease (COPD) Chronic pain Coughing Depression DVT (deep venous thrombosis) Dyslipidemia Essential hypertension Fibromyalgia Gastric ulcer Gastritis GERD (gastroesophageal reflux disease) Hematoma History of atrial fibrillation Hypothyroid IBS (irritable bowel syndrome) Lumbar stenosis Morbid obesity Neuropathy Osteoarthritis of knees, bilateral Osteochondroma of femur Overactive bladder Pulmonary hypertension Sciatica Weakness Procedure/Surgical History Cervical fusion syndrome: 07/19/16 Cellulitis Tonsillectomy and adenoidectomy section Medications Home Medications (27) Active albuterol 2.5 mg/3 mL (0.083%) inhalation solution 2.5 mg = 3 mL, PRN, Inhalation, q4h Azo-Standard See Instructions benztropine 0.5 mg oral tablet 0.5 mg = 1 tab(s), PRN, Oral, BID cetirizine 10 mg oral tablet 10 mg = 1 tab(s), Oral, qDay Colestid 1 g oral tablet 1 gram(s) = 1 tab(s), Oral, BID dicyclomine 10 mg oral capsule 10 mg = 1 cap(s), Oral, QID famotidine 40 mg oral tablet 40 mg = 1 tab(s), Oral, qHS Flovent HFA 110 mcg/inh inhalation aerosol 220 mcg = 2 inh, Inhalation, BID Glucosamine Chondroitin Advanced oral tablet 2 tab(s), Oral, qDay hydrOXYzine hydrochloride 25 mg oral tablet 25 mg = 1 tab(s), PRN, Oral, TID levothyroxine 50 mcg (0.05 mg) oral tablet 50 mcg = 1 tab(s), Oral, qDay methocarbamol 750 mg oral tablet 750 mg = 1 tab(s), PRN, Oral, TID metoprolol tartrate 25 mg oral tablet 25 mg = 1 tab(s), Oral, BID montelukast 10 mg oral tablet 10 mg = 1 tab(s), Oral, qDay Multivitamin 1 tab(s), Oral, Daily oxybutynin 5 mg oral tablet 5 mg = 1 tab(s), Oral, BID pantoprazole 40 mg oral enteric coated tablet 40 mg = 1 tab(s), Oral, BID Pepto Bismol Liquicaps 262 mg oral capsule 524 mg = 2 cap(s), Oral, q30min Plavix 75 mg oral tablet 75 mg = 1 tab(s), Oral, qDay pregabalin 75 mg oral capsule 75 mg = 1 cap(s), Oral, TID QUEtiapine 50 mg oral tablet 100 mg = 2 tab(s), Oral, qHS Rexulti 1 mg oral tablet 1 mg = 1 tab(s), Oral, qDay sertraline 25 mg oral tablet 25 mg = 1 tab(s), Oral, qDay Tylenol 650 mg, PRN, Oral, qDay Ventolin HFA MDI (90 mcg/inh) inhalation aerosol 2 puff(s), PRN, Inhalation, q4h Vitamin D3 20 mcg = 2 tab(s), Oral, Daily Voltaren 1% topical gel 4 gram(s), PRN, Topical, QID Allergies Vicodin Zanaflex ciprofloxacin codeine cyproheptadine Hives ibuprofen morphine Flushed naproxen Itching penicillin Social History Smoking Status - 01/17/2018 Current every day smoker Alcohol - Denies Alcohol Use, 04/25/2017 Use: Never., 02/21/2019 Home/Environment Living situation: Home with assistance. Safe place to go: Yes. Financial concerns: No. Primary CareGiver: self. Lives In: Mobile home. Current Home Treatments Nebulizer treatments. Marital Status: Unmarried., 01/01/2025 Nutrition/Health Caffeine intake amount: Coffee 2-3 cups daily; pop 2 of the 20oz daily., 07/23/2024 Sexual - No Risk, 08/10/2018 Substance Abuse - Denies Substance Abuse, 04/25/2017 Use: Never., 02/21/2019 Tobacco - High Risk, 08/10/2018 Nicotine Use: 5-9 cigarettes (between 1/4 to 1/2 pack)/day in last 30 days. Type: Cigarettes., 07/23/2024 Family History Asthma: Sister. Dementia: Father. Diabetes: Father and Grandparent. Heart disease: Grandparent and Grandparent. Liver cancer: Mother. Health Status Family Member(s) Family Member(s) Relationship: Mother, Age: 59 Years Immunizations pneumococcal 23-valent vaccine(Pneumovax: 0 unknown unit (05/10/17) pneumococcal 23-valent vaccine(Pneumovax: 0 unknown unit (09/04/14) tetanus/diphth/pertuss (Tdap) adult/adol: 0 unknown unit (03/29/18) tetanus/diphth/pertuss (Tdap) adult/adol: 0 unknown unit (06/22/15) Code Status Code Status - Ordered -- 01/09/25 17:14:00 EDT, Full Code, Constant Order Digitally Signed by KEATON ETIENNE APRN-PRODUCT DEVELOPMENT INTERN on 01/10/2025 01:15 PM Digitally Signed by JUSTIN TIJERINA MD FACP on 01/14/2025 09:10 AM [facility]05-29-2025 NoteORIGINAL PROCEDURE: Lumbar Epidural Injection with Fluoroscopic Guidance CLINICAL STATEMENT: Low back pain [employer]IC: Chapis Soto PA-C ANESTHESIA: Local NEEDLE: 22 G spinal needle PUNCTURE LEVEL: L2-L3 CONTRAST: 1 mL Isovue 300 MEDICATION FOR INJECTION: Dexamethasone 10 mg/ mL: 1 mL, Preservative free saline: 4 ML, 1% lidocaine: 1 mL FLUOROSCOPY: 0.9 min AIR KERMA DOSE: 208.97 mGy The procedure, risks, and alternatives, were discussed and all questions were answered. Written informed consent obtained. Accompanying paperwork was verified for accuracy. Directed history and physical exam performed prior to the procedure. Medication reconciliation performed by nursing personnel. Procedure was performed using a cap, sterile gown, sterile gloves, a large sterile sheet, hand hygiene and Betadine for cutaneous antisepsis. The patient was positioned prone on the table and prepped and draped in usual sterile fashion. A critical pause was performed with assisting personnel just prior to the procedure with the patient's identity confirmed using 2 identifiers, confirming site and side. Prior to sterile prep, a puncture site was selected and marked under fluoroscopy. 2% lidocaine was administered at the puncture site for local anesthesia. A 22-G spinal needle was advanced into the epidural space under fluoroscopic guidance. Contrast was injected to confirm the epidural location of the needle tip. Medication mixture was then injected into the epidural space. The patient's pre-procedure pain was 8 /10. Immediate post procedure pain was 3 /10. There were no apparent complications. The patient tolerated the procedure well. IMPRESSION: 1. Successful lumbar epidural injection for symptomatic relief. Procedure was performed by Chapis Soto PA-C Interpreted by: William Hobbs MD Preliminary Report By: Chapis Soto PA-C Electronically signed By William Hobbs MD Dictated Date: 01/09/2025 4:09:29 PM Prelim Date: 01/09/2025 4:11:59 PM Sign Date: 01/09/2025 6:22:05 PM Ordering Provider: [facility]05-29-2025 Hospital Discharge instructions Patient Education 01/09/2025 12:50:18 Spinal Stenosis Spinal Stenosis Spinal stenosis occurs when the open space (spinal canal) between the bones of your spine (vertebrae) narrows, putting pressure on the spinal cord or nerves. What are the causes? This condition is caused by areas of bone pushing into the central canals of your vertebrae. This condition may be present at (congenital), or it may be caused by: Arthritic deterioration of your vertebrae (spinal degeneration). This usually starts around age 50. Injury or trauma to the spine. Tumors in the spine. Calcium deposits in the spine. What are the signs or symptoms? Symptoms of this condition include: Pain in the neck or back that is generally worse with activities, particularly when standing and walking. Numbness, tingling, hot or cold sensations, weakness, or weariness in your legs. Pain going up and down the leg (sciatica). Frequent episodes of falling. A foot-slapping gait that leads to muscle weakness. In more serious cases, you may develop: Problems passing stool or passing urine. Difficulty having sex. Loss of feeling in part or all of your leg. Symptoms may come on slowly and get worse over time. How is this diagnosed? This condition is diagnosed based on your medical history and a physical exam. Tests will also be done, such as: MRI. CT scan. X-ray. How is this treated? Treatment for this condition often focuses on managing your pain and any other symptoms. Treatment may include: Practicing good posture to lessen pressure on your nerves. Exercising to strengthen muscles, build endurance, improve balance, and maintain good joint movement (range of motion). Losing weight, if needed. Taking medicines to reduce swelling, inflammation, or pain. Assistive devices, such as a corset or brace. In some cases, surgery may be needed. The most common procedure is decompression laminectomy. This is done to remove excess bone that puts pressure on your nerve roots. Follow these instructions at home: Managing pain, stiffness, and swelling Do all exercises and stretches as told by your health care provider. Practice good posture. If you were given a brace or a corset, wear it as told by your health care provider. Do not do any activities that cause pain. Ask your health care provider what activities are safe for you. Do not lift anything that is heavier than 10 lb (4.5 kg) or the limit that your health care provider tells you. Maintain a healthy weight. Talk with your health care provider if you need help losing weight. If directed, apply heat to the affected area as often as told by your health care provider. Use theheat source that your health care provider recommends, such as a moist heat pack or a heating pad. ?Place a towel between your skin and the heat source. ?Leave the heat on for 20 30 minutes. ?Remove the heat if your skin turns bright red. This is especially important if you are not able tofeel pain, heat, or cold. You may have a greater risk of getting burned. General instructions Take [id number] and prescription medicines only as told by your health care provider. Do not use any products that contain nicotine or tobacco, such as cigarettes and e-cigarettes. If you need help quitting, ask your health care provider. Eat a healthy diet. This includes plenty of fruits and vegetables, whole grains, and low-fat (lean)protein. Keep all follow-up visits as told by your health care provider. This is important. Contact a health care provider if: Your symptoms do not get better or they get worse. You have a fever. Get help right away if: You have new or worse pain in your neck or upper back. You have severe pain that cannot be controlled with medicines. You are dizzy. You have vision problems, blurred vision, or double vision. You have a severe headache that is worse when you stand. You have nausea or you vomit. You develop new or worse numbness or tingling in your back or legs. You have pain, redness, swelling, or warmth in your arm or leg. Summary Spinal stenosis occurs when the open space (spinal canal) between the bones of your spine (vertebrae) narrows. This narrowing puts pressure on the spinal cord or nerves. Spinal stenosis can cause numbness, weakness, or pain in the neck, back, and legs. This condition may be caused by a defect, arthritic deterioration of your vertebrae, injury, tumors, or calcium deposits. This condition is usually diagnosed with MRIs, CT scans, and X-rays. This information is not intended to replace advice given to you by your health care provider. Make sure you discuss any questions you have with your health care provider. Document Released: 10/20/2004 Document Revised: 07/13/2018 Document Reviewed: 07/05/2017 [employer] Patient Education 2020 [employer]. Follow Up Care 01/02/2025 15:32:45 With:LEEANN KING Neurosurgery Address: [address] [facility] [address] [place] [address]- [phone] Business (1) When: Unknown Comments:Call for appointment With:ANNETTE SAMANO Address: [address] [place] [phone] Business (1) When: only if needed With:[facility] Bed [phone] Address: When: Unknown Comments:Room 232 With:REUBEN LION JR, MD, Surgery Address: [address] [facility] [address] [place] [phone] When:01/23/2025 13:15:00 Comments:For follow up of breast/chest hematoma [facility] 05-29-2025 Note Discharge Instructions Thank you for allowing [facility] to assist you with your healthcare needs. The following is importantdischarge information regarding your hospital visit. Your Care Team ANNETTE SAMANO FUNERAL DIRECTOR'S ASSISTANT-PRODUCT DEVELOPMENT INTERN Your Diagnosis Allergic rhinitis Arthritis of both knees Back pain Bipolar disorder Breast mass Chronic obstructive pulmonary disease (COPD) Essential hypertension Fibromyalgia GERD (gastroesophageal reflux disease) History of atrial fibrillation Lumbar stenosis What to do next Scheduled Follow-Up Appointments Appointment Type When With Where Contact Information Status[facility] Hospital Follow Up 01/23/2025 01:15 PM EDT REUBEN LION JR, MD [facility], [place] Confirmed Follow Up Appointments Follow Up with Benjamin MORALES Where:[address] [facility] [address] [place] [address]- [phone] Business (1) Additional Information: Call for appointment Follow Up with ANNETTE SAMANO When:Only if needed Where:[address] [place] [address] [phone] Business (1) Follow Up with [facility] [phone] Additional Information: Room 232 Follow Up with REUBEN LINO JR, MD, Surgery When:01/23/2025 01:15 PM EDT Where:[address] [facility] [address] [place] [address]- [phone] Additional Information: For follow up of breast/chest hematoma The Following Activity and Diet Have Been Ordered for You Transfer of Care Activity - Ordered -- As instructed by therapy, 01/09/25 12:17:00 EDT Transfer of Care Diet - Ordered -- Type of Diet: Regular Diet, 01/09/25 12:17:00 EDT The Following Equipment Has Been Ordered for You No qualifying data available. The Following Treatments Have Been Ordered for You Discharge Labs No qualifying data available. Discharge Radiology No qualifying data available. Other Therapies Transfer of Care OT - Ordered -- Reason for therapy: weakness, 01/09/25 12:17:00 EDT Transfer of Care PT - Ordered -- Reason for therapy: weakness, 01/09/25 12:17:00 EDT Post Acute Orders Transfer of Care Admission Level of Care - Ordered -- Level of Care SNF, 01/09/25 12:18:00 EDT Transfer of Care Code Status - Ordered -- Full Code, Constant Order Transfer of Care Orders Electronically Signed By - Ordered -- 01/09/25 12:17:00 EDT, JAKE COPPOLA DO Transfer of Care Prognosis - Ordered -- Good, Patient Aware: Yes Transfer of Care Rehab Potential - Ordered -- Rehab potential good, 01/09/25 12:18:00 EDT Someone Will Contact You Regarding These Home Health Referrals No home referrals have been ordered for you. No one will call you. Allergies Vicodin Zanaflex ciprofloxacin codeine cyproheptadine Hives ibuprofen morphine Flushed naproxen Itching penicillin Medications Please ask your primary doctor or pharmacist before taking any other medication not listed, including over the counter drugs, herbal medications, vitamins and or supplements as they may interact withyour home medications. What How Much When Why Instructions Last Dose Unchanged acetaminophen (Tylenol) 650 Milligram by mouth Once a day as needed for as needed for pain Unchanged albuterol (albuterol 2.5 mg/ 3 mL (0.083%) inhalation solution) 3 Milliliter by inhalation Every 4 hours as needed for for wheezing Unchanged albuterol (Ventolin HFA MDI (90 mcg/ inh) inhalation aerosol) 2 puff(s) by inhalation Every 4 hours as needed for as needed for shortness of breath or wheezing Acute bronchitis Chronic obstructive pulmonary disease (COPD) Duration: 90 Days Unchanged benztropine (benztropine 0.5 mg oral tablet) 1 tab(s) by mouth Two (2) times a day as needed for abdominal discomfort Unchanged bismuth subsalicylate (Pepto Bismol Liquicaps 262 mg oral capsule) 2 cap by mouth Every 30 minutes not to exceed 8 capsules/ day Unchanged brexpiprazole (Rexulti 1 mg oral tablet) 1 tab(s) by mouth Once a day Duration: 30 Days Unchanged cetirizine (cetirizine 10 mg oral tablet) 1 tab(s) by mouth Once a day Allergic rhinitis Duration: 90 Days Unchanged cholecalciferol (Vitamin D3) 20 Microgram by mouth Every day Unchanged chondroitin/ glucosamine/ methylsulfonylmethane (Glucosamine Chondroitin Advanced oral tablet) 2 tab(s) by mouth Once a day plus D- 50 mcg Unchanged clopidogrel (Plavix 75 mg oral tablet) 1 tab(s) by mouth Once a day Unchanged colestipol (Colestid 1 g oral tablet) 1 tab(s) by mouth Two (2) times a day Unchanged diclofenac topical (Voltaren 1% topical gel) 4 gram(s) Topical Four (4) times a day as needed for Pain Fibromyalgia Arthritis of both knees Arthritis of facet joint of lumbar spine Duration: 30 Days Unchanged dicyclomine (dicyclomine 10 mg oral capsule) 1 cap by mouth Four (4) times a day Unchanged famotidine (famotidine 40 mg oral tablet) 1 tab(s) by mouth Daily at bedtime Unchanged fluticasone (Flovent HFA 110 mcg/ inh inhalation aerosol) 2 inh by inhalation Two (2) times a day Chronic obstructive pulmonary disease (COPD) Duration: 30 Days Unchanged hydrOXYzine (hydrOXYzine hydrochloride 25 mg oral tablet) 1 tab(s) by mouth Three (3) times a day as needed for as needed for anxiety Unchanged levothyroxine (levothyroxine 50 mcg (0.05 mg) oral tablet) 1 tab(s) by mouth Once a day Unchanged methocarbamol (methocarbamol 750 mg oral tablet) 1 tab(s) by mouth Three (3) times a day as needed for as needed for pain Fibromyalgia Arthritis of both knees Duration: 30 Days Unchanged metoprolol (metoprolol tartrate 25 mg oral tablet) 1 tab(s) by mouth Two (2) times a day Unchanged montelukast (montelukast 10 mg oral tablet) 1 tab(s) by mouth Once a day Unchanged multivitamin (Multivitamin) 1 tab(s) by mouth Every day Unchanged oxybutynin (oxybutynin 5 mg oral tablet) 1 tab(s) by mouth Two (2) times a day Unchanged pantoprazole (pantoprazole 40 mg oral enteric coated tablet) 1 tab(s) by mouth Two (2) times a day Unchanged phenazopyridine (Azo-Standard) See instructions 1 daily Unchanged pregabalin (pregabalin 75 mg oral capsule) 1 cap by mouth Three (3) times a day Fibromyalgia Arthritis of both knees Duration: 30 Days Unchanged QUEtiapine (QUEtiapine 50 mg oral tablet) 2 tab(s) by mouth Daily at bedtime Bipolar disorder Duration: 90 Days Unchanged sertraline (sertraline 25 mg oral tablet) 1 tab(s) by mouth Once a day What How Much When Why Comments Stop Taking celecoxib (CeleBREX 100 mg oral capsule) 1 cap by mouth Once a day Low back pain Sciatic pain Duration: 90 Days Please take this list to your next doctor s visit. Bring all medications you take, including over the counter medications, herbals and other supplements with you to your doctor s visit. Patients and families are reminded to discard old lists and to update any records with all medication providers or retail pharmacies. Education Materials Spinal Stenosis Spinal stenosis occurs when the open space (spinal canal) between the bones of your spine (vertebrae) narrows, putting pressure on the spinal cord or nerves. What are the causes? This condition is caused by areas of bone pushing into the central canals of your vertebrae. This condition may be present at (congenital), or it may be caused by: Arthritic deterioration of your vertebrae (spinal degeneration). This usually starts around age 50. Injury or trauma to the spine. Tumors in the spine. Calcium deposits in the spine. What are the signs or symptoms? Symptoms of this condition include: Pain in the neck or back that is generally worse with activities, particularly when standing and walking. Numbness, tingling, hot or cold sensations, weakness, or weariness in your legs. Pain going up and down the leg (sciatica). Frequent episodes of falling. A foot-slapping gait that leads to muscle weakness. In more serious cases, you may develop: Problems passing stool or passing urine. Difficulty having sex. Loss of feeling in part or all of your leg. Symptoms may come on slowly and get worse over time. How is this diagnosed? This condition is diagnosed based on your medical history and a physical exam. Tests will also be done, such as: MRI. CT scan. X-ray. How is this treated? Treatment for this condition often focuses on managing your pain and any other symptoms. Treatment may include: Practicing good posture to lessen pressure on your nerves. Exercising to strengthen muscles, build endurance, improve balance, and maintain good joint movement (range of motion). Losing weight, if needed. Taking medicines to reduce swelling, inflammation, or pain. Assistive devices, such as a corset or brace. In some cases, surgery may be needed. The most common procedure is decompression laminectomy. This is done to remove excess bone that puts pressure on your nerve roots. Follow these instructions at home: Managing pain, stiffness, and swelling Do all exercises and stretches as told by your health care provider. Practice good posture. If you were given a brace or a corset, wear it as told by your health care provider. Do not do any activities that cause pain. Ask your health care provider what activities are safe for you. Do not lift anything that is heavier than 10 lb (4.5 kg) or the limit that your health care provider tells you. Maintain a healthy weight. Talk with your health care provider if you need help losing weight. If directed, apply heat to the affected area as often as told by your health care provider. Use theheat source that your health care provider recommends, such as a moist heat pack or a heating pad. ? Place a towel between your skin and the heat source. ? Leave the heat on for 20 30 minutes. ? Remove the heat if your skin turns bright red. This is especially important if you are not able to feel pain, heat, or cold. You may have a greater risk of getting burned. General instructions Take oopi-uoi-yzxmigo and prescription medicines only as told by your health care provider. Do not use any products that contain nicotine or tobacco, such as cigarettes and e-cigarettes. If you need help quitting, ask your health care provider. Eat a healthy diet. This includes plenty of fruits and vegetables, whole grains, and low-fat (lean)protein. Keep all follow-up visits as told by your health care provider. This is important. Contact a health care provider if: Your symptoms do not get better or they get worse. You have a fever. Get help right away if: You have new or worse pain in your neck or upper back. You have severe pain that cannot be controlled with medicines. You are dizzy. You have vision problems, blurred vision, or double vision. You have a severe headache that is worse when you stand. You have nausea or you vomit. You develop new or worse numbness or tingling in your back or legs. You have pain, redness, swelling, or warmth in your arm or leg. Summary Spinal stenosis occurs when the open space (spinal canal) between the bones of your spine (vertebrae) narrows. This narrowing puts pressure on the spinal cord or nerves. Spinal stenosis can cause numbness, weakness, or pain in the neck, back, and legs. This condition may be caused by a defect, arthritic deterioration of your vertebrae, injury, tumors, or calcium deposits. This condition is usually diagnosed with MRIs, CT scans, and X-rays. This information is not intended to replace advice given to you by your health care provider. Make sure you discuss any questions you have with your health care provider. Document Released: 10/20/2004 Document Revised: 07/13/2018 Document Reviewed: 07/05/2017 [employer] Patient Education 2020 [employer] Additional Information VACCINATE! IT SAVES LIVES! Members of the community who have not yet received the COVID-19 vaccine and would like to receive it can visit one of [facility] vaccine clinics. There are many vaccine clinic locations within the [facility]. For locations and available times, please visit [email or web address]/. It is important to note that some COVID mobile vaccine clinics are held outdoors and may be canceled in rainy or stormy conditions. To learn more about pediatric vaccinations (ages 5-11), we invite you to visit the [facility] webpage. [email or web address] [email or web address] learn more about the COVID-19 vaccine, we invite you to visit the CDC website for a list of frequently asked questions.https://www.cdc.gov/coronavirus/2019-ncov/vaccines/faq.html [facility] Patient Portal Access Instructions: Stay connected with your healthcare team and access your personal medical information anytime with the [facility] Patient Portal. Please follow the directions below to create your [facility] account: 1.Access the email account you provided upon registration to the hospital/physician office.2.Look for an invitation email from [facility].3.Open the email and access the invitation link: AcceptInvitation to [facility].4.Fill in the required choudhury to create your account. To access your account, visit [email or web address]. Click the blue button labeled "Access Patient Portal" and then log in with the username and password that you created in the steps above. You will be able to view your test results, lab results, a summary of your visits, upcoming appointments and more. There is also a convenient messaging option where you can send secure messages to your [employer]. In addition, you will have the ability to download any documents or summaries to your computer and/or send the information securely to a physician. Remember that your healthcare information is confidential, so carefully consider who you will allowto register on the [facility] Patient Portal for access to your information. You can also access the [facility] Patient Portal on the [facility] kvng. Simply click on "Patient Portal" and then log into your account. If you would like to receive a full copy of your medical records, please contact the [facility] Medical Records Department by calling [phone], Monday through Monday between 8 a.m. and 4:30 p.m. HOW TO SAFELY DISPOSE OF PRESCRIPTION MEDICATIONS Please use one of the following methods to safely dispose of your unused medications. 1.Use a drug disposal kit: the drug disposal pouch allows you to safely discard your old and unuseddrugs. Ask your nurse to give you one when you are discharged.2.Visit a local take-back location: Many local pharmacies and police departments have programs that collect old and unwanted prescriptiondrugs. Call your local pharmacy or go to http://bit.Red e App/3K6Sv6s to find one close to you.3.Make use of household items: Use cat litter or old coffee grounds to dispose medications if other options arenot available. Mix your drugs with these household products, seal them in an airtight container andthrow it into the garbage. Call [facility]: [phone] to be sure your drugs can be disposed of in this way. Some medicines may require a different approach.4.Never flush your medications down the toilet. IF YOU HAVE BEEN PRESCRIBED AN OPIOID FOR PAIN If you have been prescribed an opioid (such as hydrocodone, oxycodone or morphine), it is critical to understand the possible side effects and risks of opioid pain medications. Even when taken as directed, opioids can have several side effects including: Tolerance, meaning you might need to take more of a medication for the same pain relief. Nausea, vomiting and/or constipation. Sleepiness, dizziness, dry mouth, confusion, depression or itching. Physical dependence, meaning you have withdrawal symptoms when a medication is stopped, can develop within a few days. KNOW YOUR RESPONSIBILITIES It is important to know exactly how much and how often to take the opioid pain medications you are prescribed. Never take opioids in higher amounts or more often than prescribed. Do not combine opioids with alcohol or other drugs that cause drowsiness, such as benzodiazepines, also known as benzos, including diazepam and alprazolam, muscle relaxants or sleep aids. Never sell or share prescription opioids. This is illegal. Store opioids in a secure place and out of reach of others (including children, family, friends and visitors). The last page of this document has been signed and retained as a CHART COPY. Signatures Patient Education Materials Spinal Stenosis Medication Leaflets My discharge plan and instructions have been reviewed and explained to me and IMILLER LAURA A understand my current condition and have read and understand these discharge instructions. I have received a written copy of the plan/instructions. If I have questions, I am aware that I should contact my doctor. 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 Signature: Date/Time: Relationship to Patient: Witness Name/Signature: [id number] Note Discharge Instructions Thank you for allowing [facility] to assist you with your healthcare needs. The following is importantdischarge information regarding your hospital visit. Your Care Team ANNETTE SAMANO FUNERAL DIRECTOR'S ASSISTANT-PRODUCT DEVELOPMENT INTERN Your Diagnosis Allergic rhinitis Arthritis of both knees Back pain Bipolar disorder Breast mass Chronic obstructive pulmonary disease (COPD) Essential hypertension Fibromyalgia GERD (gastroesophageal reflux disease) History of atrial fibrillation Lumbar stenosis What to do next Scheduled Follow-Up Appointments Appointment Type When With Where Contact Information Status[facility] Hospital Follow Up 01/23/2025 01:15 PM EDT REUBEN LION JR, MD [facility] Surgery Confirmed Follow Up Appointments Follow Up with LEEANN KING, Neurosurgery Where:[address] [facility] [address] [place] [place] [address] [phone] Business (1) Additional Information: Call for appointment Follow Up with ANNETTE SAMANO When:Only if needed Where:[address] [facility] [place] [address] [phone] Business (1) Follow Up with [facility] [phone] Additional Information: Room 232 Follow Up with REUBEN LION JR, MD, Surgery When:01/23/2025 01:15 PM EDT Where:[address] [facility] [address] [place] [address]- [phone] Additional Information: For follow up of breast/chest hematoma The Following Activity and Diet Have Been Ordered for You Transfer of Care Activity - Ordered -- As instructed by therapy, 01/09/25 12:17:00 EDT Transfer of Care Diet - Ordered -- Type of Diet: Regular Diet, 01/09/25 12:17:00 EDT The Following Equipment Has Been Ordered for You No qualifying data available. The Following Treatments Have Been Ordered for You Discharge Labs No qualifying data available. Discharge Radiology No qualifying data available. Other Therapies Transfer of Care OT - Ordered -- Reason for therapy: weakness, 01/09/25 12:17:00 EDT Transfer of Care PT - Ordered -- Reason for therapy: weakness, 01/09/25 12:17:00 EDT Post Acute Orders Transfer of Care Admission Level of Care - Ordered -- Level of Care SNF, 01/09/25 12:18:00 EDT Transfer of Care Code Status - Ordered -- Full Code, Constant Order Transfer of Care Orders Electronically Signed By - Ordered -- 01/09/25 12:17:00 EDT, JAKE COPPOLA DO Transfer of Care Prognosis - Ordered -- Good, Patient Aware: Yes Transfer of Care Rehab Potential - Ordered -- Rehab potential good, 01/09/25 12:18:00 EDT Someone Will Contact You Regarding These Home Health Referrals No home referrals have been ordered for you. No one will call you. Allergies Vicodin Zanaflex ciprofloxacin codeine cyproheptadine Hives ibuprofen morphine Flushed naproxen Itching penicillin Medications Please ask your primary doctor or pharmacist before taking any other medication not listed, including over the counter drugs, herbal medications, vitamins and or supplements as they may interact withyour home medications. What How Much When Why Instructions Last Dose Unchanged acetaminophen (Tylenol) 650 Milligram by mouth Once a day as needed for as needed for pain Unchanged albuterol (albuterol 2.5 mg/ 3 mL (0.083%) inhalation solution) 3 Milliliter by inhalation Every 4 hours as needed for for wheezing Unchanged albuterol (Ventolin HFA MDI (90 mcg/ inh) inhalation aerosol) 2 puff(s) by inhalation Every 4 hours as needed for as needed for shortness of breath or wheezing Acute bronchitis Chronic obstructive pulmonary disease (COPD) Duration: 90 Days Unchanged benztropine (benztropine 0.5 mg oral tablet) 1 tab(s) by mouth Two (2) times a day as needed for abdominal discomfort Unchanged bismuth subsalicylate (Pepto Bismol Liquicaps 262 mg oral capsule) 2 cap by mouth Every 30 minutes not to exceed 8 capsules/ day Unchanged brexpiprazole (Rexulti 1 mg oral tablet) 1 tab(s) by mouth Once a day Duration: 30 Days Unchanged cetirizine (cetirizine 10 mg oral tablet) 1 tab(s) by mouth Once a day Allergic rhinitis Duration: 90 Days Unchanged cholecalciferol (Vitamin D3) 20 Microgram by mouth Every day Unchanged chondroitin/ glucosamine/ methylsulfonylmethane (Glucosamine Chondroitin Advanced oral tablet) 2 tab(s) by mouth Once a day plus D- 50 mcg Unchanged clopidogrel (Plavix 75 mg oral tablet) 1 tab(s) by mouth Once a day Unchanged colestipol (Colestid 1 g oral tablet) 1 tab(s) by mouth Two (2) times a day Unchanged diclofenac topical (Voltaren 1% topical gel) 4 gram(s) Topical Four (4) times a day as needed for Pain Fibromyalgia Arthritis of both knees Arthritis of facet joint of lumbar spine Duration: 30 Days Unchanged dicyclomine (dicyclomine 10 mg oral capsule) 1 cap by mouth Four (4) times a day Unchanged famotidine (famotidine 40 mg oral tablet) 1 tab(s) by mouth Daily at bedtime Unchanged fluticasone (Flovent HFA 110 mcg/ inh inhalation aerosol) 2 inh by inhalation Two (2) times a day Chronic obstructive pulmonary disease (COPD) Duration: 30 Days Unchanged hydrOXYzine (hydrOXYzine hydrochloride 25 mg oral tablet) 1 tab(s) by mouth Three (3) times a day as needed for as needed for anxiety Unchanged levothyroxine (levothyroxine 50 mcg (0.05 mg) oral tablet) 1 tab(s) by mouth Once a day Unchanged methocarbamol (methocarbamol 750 mg oral tablet) 1 tab(s) by mouth Three (3) times a day as needed for as needed for pain Fibromyalgia Arthritis of both knees Duration: 30 Days Unchanged metoprolol (metoprolol tartrate 25 mg oral tablet) 1 tab(s) by mouth Two (2) times a day Unchanged montelukast (montelukast 10 mg oral tablet) 1 tab(s) by mouth Once a day Unchanged multivitamin (Multivitamin) 1 tab(s) by mouth Every day Unchanged oxybutynin (oxybutynin 5 mg oral tablet) 1 tab(s) by mouth Two (2) times a day Unchanged pantoprazole (pantoprazole 40 mg oral enteric coated tablet) 1 tab(s) by mouth Two (2) times a day Unchanged phenazopyridine (Azo-Standard) See instructions 1 daily Unchanged pregabalin (pregabalin 75 mg oral capsule) 1 cap by mouth Three (3) times a day Fibromyalgia Arthritis of both knees Duration: 30 Days Unchanged QUEtiapine (QUEtiapine 50 mg oral tablet) 2 tab(s) by mouth Daily at bedtime Bipolar disorder Duration: 90 Days Unchanged sertraline (sertraline 25 mg oral tablet) 1 tab(s) by mouth Once a day What How Much When Why Comments Stop Taking celecoxib (CeleBREX 100 mg oral capsule) 1 cap by mouth Once a day Low back pain Sciatic pain Duration: 90 Days Please take this list to your next doctor s visit. Bring all medications you take, including over the counter medications, herbals and other supplements with you to your doctor s visit. Patients and families are reminded to discard old lists and to update any records with all medication providers or retail pharmacies. Education Materials Spinal Stenosis Spinal stenosis occurs when the open space (spinal canal) between the bones of your spine (vertebrae) narrows, putting pressure on the spinal cord or nerves. What are the causes? This condition is caused by areas of bone pushing into the central canals of your vertebrae. This condition may be present at (congenital), or it may be caused by: Arthritic deterioration of your vertebrae (spinal degeneration). This usually starts around age 50. Injury or trauma to the spine. Tumors in the spine. Calcium deposits in the spine. What are the signs or symptoms? Symptoms of this condition include: Pain in the neck or back that is generally worse with activities, particularly when standing and walking. Numbness, tingling, hot or cold sensations, weakness, or weariness in your legs. Pain going up and down the leg (sciatica). Frequent episodes of falling. A foot-slapping gait that leads to muscle weakness. In more serious cases, you may develop: Problems passing stool or passing urine. Difficulty having sex. Loss of feeling in part or all of your leg. Symptoms may come on slowly and get worse over time. How is this diagnosed? This condition is diagnosed based on your medical history and a physical exam. Tests will also be done, such as: MRI. CT scan. X-ray. How is this treated? Treatment for this condition often focuses on managing your pain and any other symptoms. Treatment may include: Practicing good posture to lessen pressure on your nerves. Exercising to strengthen muscles, build endurance, improve balance, and maintain good joint movement (range of motion). Losing weight, if needed. Taking medicines to reduce swelling, inflammation, or pain. Assistive devices, such as a corset or brace. In some cases, surgery may be needed. The most common procedure is decompression laminectomy. This is done to remove excess bone that puts pressure on your nerve roots. Follow these instructions at home: Managing pain, stiffness, and swelling Do all exercises and stretches as told by your health care provider. Practice good posture. If you were given a brace or a corset, wear it as told by your health care provider. Do not do any activities that cause pain. Ask your health care provider what activities are safe for you. Do not lift anything that is heavier than 10 lb (4.5 kg) or the limit that your health care provider tells you. Maintain a healthy weight. Talk with your health care provider if you need help losing weight. If directed, apply heat to the affected area as often as told by your health care provider. Use theheat source that your health care provider recommends, such as a moist heat pack or a heating pad. ? Place a towel between your skin and the heat source. ? Leave the heat on for 20 30 minutes. ? Remove the heat if your skin turns bright red. This is especially important if you are not able to feel pain, heat, or cold. You may have a greater risk of getting burned. General instructions Take jwyb-kqj-laerlbo and prescription medicines only as told by your health care provider. Do not use any products that contain nicotine or tobacco, such as cigarettes and e-cigarettes. If you need help quitting, ask your health care provider. Eat a healthy diet. This includes plenty of fruits and vegetables, whole grains, and low-fat (lean)protein. Keep all follow-up visits as told by your health care provider. This is important. Contact a health care provider if: Your symptoms do not get better or they get worse. You have a fever. Get help right away if: You have new or worse pain in your neck or upper back. You have severe pain that cannot be controlled with medicines. You are dizzy. You have vision problems, blurred vision, or double vision. You have a severe headache that is worse when you stand. You have nausea or you vomit. You develop new or worse numbness or tingling in your back or legs. You have pain, redness, swelling, or warmth in your arm or leg. Summary Spinal stenosis occurs when the open space (spinal canal) between the bones of your spine (vertebrae) narrows. This narrowing puts pressure on the spinal cord or nerves. Spinal stenosis can cause numbness, weakness, or pain in the neck, back, and legs. This condition may be caused by a defect, arthritic deterioration of your vertebrae, injury, tumors, or calcium deposits. This condition is usually diagnosed with MRIs, CT scans, and X-rays. This information is not intended to replace advice given to you by your health care provider. Make sure you discuss any questions you have with your health care provider. Document Released: 10/20/2004 Document Revised: 07/13/2018 Document Reviewed: 07/05/2017 [employer] Patient Education 2020 [employer] Additional Information VACCINATE! IT SAVES LIVES! Members of the community who have not yet received the COVID-19 vaccine and would like to receive it can visit one of [facility] vaccine clinics. There are many vaccine clinic locations within the [facility]. For locations and available times, please visit https://gettheshot.coronavirus.[place].gov/. It is important to note that some COVID mobile vaccine clinics are held outdoors and may be canceled in rainy or stormy conditions. To learn more about pediatric vaccinations (ages 5-11), we invite you to visit the [facility] webpage. [email or web address].[email or web address].org/pages/5365-Odhrc-Bbbquvbmepe-Uxclwrbear-Kmilu-Nwy stions.htmlTo learn more about the COVID-19 vaccine, we invite you to visit the CDC website for a list of frequently asked questions.https://www.cdc.gov/coronavirus/2019-ncov/vaccines/faq.html [employer] Patient Portal Access Instructions: Stay connected with your healthcare team and access your personal medical information anytime with the [employer] Patient Portal. Please follow the directions below to create your [employer] account: 1.Access the email account you provided upon registration to the hospital/physician office.2.Look for an invitation email from [facility].3.Open the email and access the invitation link: AcceptInvitation to [employer].4.Fill in the required choudhury to create your account. To access your account, visit [employer]: [employer]Poshmarkhart. Click the blue button labeled "Access Patient Portal" and then log in with the username and password that you created in the steps above. You will be able to view your test results, lab results, a summary of your visits, upcoming appointments and more. There is also a convenient messaging option where you can send secure messages to your p rovider. In addition, you will have the ability to download any documents or summaries to your computer and/or send the information securely to a physician. Remember that your healthcare information is confidential, so carefully consider who you will allowto register on the [facility] Patient Portal for access to your information. [facility] can also [facility] on the [facility] kv[facility]. Simply click on "Patient Portal" and then log into your account. If you would like to receive a full copy of your medical records, please contact the [facility] Medical Records Department by calling [phone], Monday through Monday between 8 a.m. and 4:30 p.m. HOW TO SAFELY DISPOSE OF PRESCRIPTION MEDICATIONS Please use one of the following methods to safely dispose of your unused medications. 1.Use a drug disposal kit: the drug disposal pouch allows you to safely discard your old and unuseddrugs. Ask your nurse to give you one when you are discharged.2.Visit a local take-back location: Many local pharmacies and police departments have programs that collect old and unwanted prescriptiondrugs. Call your local pharmacy or go to http://Yuyuto.Red e App/0J3Re5t to find one close to you.3.Make use of household items: Use cat litter or old coffee grounds to dispose medications if other options arenot available. Mix your drugs with these household products, seal them in an airtight container andthrow it into the garbage. Call [facility]: [phone] to be sure your drugs can be disposed of in this way. Some medicines may require a different approach.4.Never flush your medications down the toilet. IF YOU HAVE BEEN PRESCRIBED AN OPIOID FOR PAIN If you have been prescribed an opioid (such as hydrocodone, oxycodone or morphine), it is critical to understand the possible side effects and risks of opioid pain medications. Even when taken as directed, opioids can have several side effects including: Tolerance, meaning you might need to take more of a medication for the same pain relief. Nausea, vomiting and/or constipation. Sleepiness, dizziness, dry mouth, confusion, depression or itching. Physical dependence, meaning you have withdrawal symptoms when a medication is stopped, can develop within a few days. KNOW YOUR RESPONSIBILITIES It is important to know exactly how much and how often to take the opioid pain medications you are prescribed. Never take opioids in higher amounts or more often than prescribed. Do not combine opioids with alcohol or other drugs that cause drowsiness, such as benzodiazepines, also known as benzos, including diazepam and alprazolam, muscle relaxants or sleep aids. Never sell or share prescription opioids. This is illegal. Store opioids in a secure place and out of reach of others (including children, family, friends and visitors). The last page of this document has been signed and retained as a CHART COPY. Signatures Patient Education Materials Spinal Stenosis Medication Leaflets My discharge plan and instructions have been reviewed and explained to me and I,MITCHELL BROOKS understand my current condition and have read and understand these discharge instructions. I have received a written copy of the plan/instructions. If I have questions, I am aware that I should contact my doctor. 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 Signature: Date/Time: Relationship to Patient: Witness Name/Signature: Date[facility]Time: [id number] Discharge summary Date of Service 01/09/2025 Discharge Diagnosis 1 - Back pain (M54.9 - ICD-10-CM) 2 - Lumbar stenosis (M48.061 - ICD-10-CM) 3 - Breast mass (N63.0 - ICD-10-CM) 4 - Chronic obstructive pulmonary disease (COPD) (J44.9 - ICD-10-CM) 5 - GERD (gastroesophageal reflux disease) (K21.9 - ICD-10-CM) 6 - Essential hypertension (I10 - ICD-10-CM) 7 - History of atrial fibrillation (Z86.79 - ICD-10-CM) Hospital Course 49-year-old female with past medical history of hypertension, hyperlipidemia, fibromyalgia, paroxysmal atrial fibrillation on Plavix as she is unable to tolerate aspirin or anticoagulation secondary to gastric ulcer, COPD, neuropathy, bipolar disorder, tobacco abuse, morbid obesity. Patient presented to [facility] as a transfer from [facility] on 01/02/2025 for management of her severe lumbar stenosis. She initially presented to [facility] on 01/01/2025 with low back pain radiating down her legs. She underwent an MRI of the lumbar spine that showed bilateral facet joint cystL3-L4 resulting in severe canal stenosis. She transferred to [facility] for neurosurgery evaluation. Neurosurgery evaluated the patient and felt that she was a candidate for excision of the cyst for decompression. She was also offered nonsurgical option of epidural injections in which patientopted for. The patient is on Plavix, this was held on 01/03/2025, she will need to hold this for 5 days. Planning for epidural injection on 01/07/2025 per IR. Additionally, the patient was found to have a right breast hematoma with concern for deep breast mass. She was evaluated by hematology as wellas general surgery, no acute intervention is planned, patient will follow-up with general surgery in the outpatient setting. She did receive epidural injection today. PT/OT recommending inpatient rehab, medically optimized for discharge to TCU, pre-CERT obtained. Discussed with patient at the bedside, discussed with Dr. Tijerina. Collaborative Care Team [facility] Medicine Shared/split visit with Mar MARTINEZ. Patient seen and examined independently. Care discussed and coordinated by the entire care team under my direction. Patient doing well here today. Plan is therapy over at [facility], for which she is medically optimized. DC to [facility] TCU. DC time 36 minutes justin tijerina md [facility] Medicine Allergies Vicodin Zanaflex ciprofloxacin codeine cyproheptadine Hives ibuprofen morphine Flushed naproxen Itching penicillin Consults Consult to Physician - Ordered -- 01/02/25 23:30:00 EDT, LEEANN KING MD, Routine, Severe lumbar spinal stenosis Consult to Physician - Ordered -- 01/03/25 0:44:00 EDT, JENNY LUZ MD, Routine, Non-traumatic ecchymoses Consult to Physician - Ordered -- 01/03/25 10:29:00 EDT, REUBEN LION JR, MD, Routine, Further evaluation and guidance in regards to follow-up imaging and possible biopsy from a deep breast mass seen on the CT thorax Physical Exam Vitals and Measurements T: 36.5 C (Oral) TMIN: 36.4 C (Oral) TMAX: 36.6 C (Oral) HR: 64 (Apical) RR: 20 BP: 106/59 SpO2: 93% Weight Dosing Weight: 149.1 kg (01/02/25) Physical Exam General: Alert, appropriate and awake, oriented to time, people and place Skin: No rash. Warm, Dry, Intact HEENT: Head is normocephalic and atraumatic. No lesions. Pupils equal in size. Extraocular movements within normal limits. Nose: No septal deviation. Mouth: Oropharynx mucosa is without lesion. Neck: Supple. No lymphadenopathy, thyromegaly noted. Lungs: Bilaterally clear/diminished breath sounds with no crepitation or wheeze. Unlabored Cardiovascular: Heart is regular rhythm, S1S2, No extra-audible heart tones Abdomen: Abdomen is soft, nontender. Bowel sounds positive all four quadrants. Extremities: No clubbing, cyanosis or edema. Peripheral pulses palpable. No calf tenderness. Adequate peripheral circulation. Neurological: Following simple commands, moving all extremities. Code Status Code Status - Ordered -- 01/02/25 23:30:00 EDT, Full Code, Constant Order Admission Date 01/02/2025 Discharge Date 01/09/2025 Patient Instructions He will be discharged to [facility] for continued physical and Occupational Therapy Return to the ER for any new or worsening symptoms Medications New Prescription acetaminophen-hydrocodone ([place] 325- 5 mg oral tablet)1 tab(s) by mouth every 6 hours as needed Pain, scale 7-10 for 1 Days. Refills: 0. Unchanged acetaminophen (Tylenol)650 Milligram by mouth once a day as needed as needed for pain. albuterol (albuterol 2.5 mg/3 mL (0.083%) inhalation solution)3 Milliliter by inhalation every 4 hours as needed for wheezing. albuterol (Ventolin HFA MDI (90 mcg/inh) inhalation aerosol)2 puff(s) by inhalation every 4 hours as needed as needed for shortness of breath or wheezing for 90 Days. Refills: 1. benztropine (benztropine 0.5 mg oral tablet)1 tab(s) by mouth two (2) times a day as needed abdominal discomfort. bismuth subsalicylate (Pepto Bismol Liquicaps 262 mg oral capsule)2 cap by mouth every 30 minutes. not to exceed 8 capsules/day. brexpiprazole (Rexulti 1 mg oral tablet)1 tab(s) by mouth once a day for 30 Days. cetirizine (cetirizine 10 mg oral tablet)1 tab(s) by mouth once a day for 90 Days. Refills: 1. cholecalciferol (Vitamin D3)20 Microgram by mouth every day. chondroitin/glucosamine/methylsulfonylmethane (Glucosamine Chondroitin Advanced oral tablet)2 tab(s) by mouth once a day. plus D- 50 mcg. clopidogrel (Plavix 75 mg oral tablet)1 tab(s) by mouth once a day. colestipol (Colestid 1 g oral tablet)1 tab(s) by mouth two (2) times a day. Refills: 0. diclofenac topical (Voltaren 1% topical gel)4 gram(s) Topical four (4) times a day as needed Pain for 30 Days. Refills: 5. dicyclomine (dicyclomine 10 mg oral capsule)1 cap by mouth four (4) times a day. Refills: 0. famotidine (famotidine 40 mg oral tablet)1 tab(s) by mouth daily at bedtime. Refills: 0. fluticasone (Flovent HFA 110 mcg/inh inhalation aerosol)2 inh by inhalation two (2) times a day for30 Days. Refills: 6. hydrOXYzine (hydrOXYzine hydrochloride 25 mg oral tablet)1 tab(s) by mouth three (3) times a day asneeded as needed for anxiety. levothyroxine (levothyroxine 50 mcg (0.05 mg) oral tablet)1 tab(s) by mouth once a day. Refills: 0. methocarbamol (methocarbamol 750 mg oral tablet)1 tab(s) by mouth three (3) times a day as needed as needed for pain for 30 Days. Refills: 2. metoprolol (metoprolol tartrate 25 mg oral tablet)1 tab(s) by mouth two (2) times a day. Refills: 0. montelukast (montelukast 10 mg oral tablet)1 tab(s) by mouth once a day. Refills: 0. multivitamin (Multivitamin)1 tab(s) by mouth every day. oxybutynin (oxybutynin 5 mg oral tablet)1 tab(s) by mouth two (2) times a day. Refills: 0. pantoprazole (pantoprazole 40 mg oral enteric coated tablet)1 tab(s) by mouth two (2) times a day. Refills: 3. phenazopyridine (Azo-Standard)1 daily. pregabalin (pregabalin 75 mg oral capsule)1 cap by mouth three (3) times a day for 30 Days. Refills: 2. QUEtiapine (QUEtiapine 50 mg oral tablet)2 tab(s) by mouth daily at bedtime for 90 Days. Refills: 1. sertraline (sertraline 25 mg oral tablet)1 tab(s) by mouth once a day. Discontinued celecoxib (CeleBREX 100 mg oral capsule)1 cap by mouth once a day for 90 Days. Refills: 0. Follow Up Follow Up with LEEANN KING, Neurosurgery Where:[address] [place] [place] [address]- [phone] Business (1) Additional Information: Call for appointment Follow Up with ANNETTE SAMANO When:Only if needed Where:[address] [place] [address] [phone] Business (1) Follow Up with [facility] Bed [phone] Additional Information: Room 232 Follow Up with REUBEN LION JR, MD, Surgery When:01/23/2025 01:15 PM EDT Where:[address] [facility] [place] [address]- [phone] Additional Information: For follow up of breast/chest hematoma Follow Up Appointments Transfer of Care OT - Ordered -- Reason for therapy: weakness, 01/09/25 12:17:00 EDT Transfer of Care PT - Ordered -- Reason for therapy: weakness, 01/09/25 12:17:00 EDT Follow Up Labs/Studies Discharge Labs No Follow-up Labs Discharge Studies No Follow-up Studies Discharge Diet Transfer of Care Diet - Ordered -- Type of Diet: Regular Diet, 01/09/25 12:17:00 EDT Discharge Activity Transfer of Care Activity - Ordered -- As instructed by therapy, 01/09/25 12:17:00 EDT Condition on Discharge Stable Discharge Disposition Home Information Provided To Patient Time Spent 35 minutes spent on discharge with greater than 50% that time spent on direct patient care and carecoordination. Digitally Signed by MAR OWEN on 01/09/2025 12:50 PM Digitally Signed by JUSTIN TIJERINA MD FACP on 01/09/2025 06:52 PM [id number] Note* Exam Date Time Procedure Performing Provider Status 01/09/25 10:18 AM IR Epidural Injection WILLIAM HOBBS MD ; Auth (Verified) [id number] ORIGINAL PROCEDURE: Lumbar Epidural Injection with Fluoroscopic Guidance CLINICAL STATEMENT: Low back pain AUTOMOTIVE HEAVY MECHANIC: Chapis Soto PA-C ANESTHESIA: Local NEEDLE: 22 G spinal needle PUNCTURE LEVEL: L2-L3 CONTRAST: 1 mL Isovue 300 MEDICATION FOR INJECTION: Dexamethasone 10 mg/ mL: 1 mL, Preservative free saline: 4 ML, 1% lidocaine: 1 mL FLUOROSCOPY: 0.9 min AIR KERMA DOSE: 208.97 mGy The procedure, risks, and alternatives, were discussed and all questions were answered. Written informed consent obtained. Accompanying paperwork was verified for accuracy. Directed history and physical exam performed prior to the procedure. Medication reconciliation performed by nursing personnel. Procedure was performed using a cap, sterile gown, sterile gloves, a large sterile sheet, hand hygiene and Betadine for cutaneous antisepsis. The patient was positioned prone on the table and prepped and draped in usual sterile fashion. A critical pause was performed with assisting personnel just prior to the procedure with the patient's identity confirmed using 2 identifiers, confirming site and side. Prior to sterile prep, a puncture site was selected and marked under fluoroscopy. 2% lidocaine was administered at the puncture site for local anesthesia. A 22-G spinal needle was advanced into the epidural space under fluoroscopic guidance. Contrast was injected to confirm the epidural location of the needle tip. Medication mixture was then injected into the epidural space. The patient's pre-procedure pain was 8 /10. Immediate post procedure pain was 3 /10. There were no apparent complications. The patient tolerated the procedure well. IMPRESSION: 1. Successful lumbar epidural injection for symptomatic relief. Procedure was performed by Chapis Soto PA-C Interpreted by: William Hobbs MD Preliminary Report By: Chapis Soto PA-C Electronically signed By William Hobbs MD Dictated Date: 01/09/2025 4:09:29 PM Prelim Date: 01/09/2025 4:11:59 PM Sign Date: 01/09/2025 6:22:05 PM Ordering Provider: JUAN ENRIQUE [id number] Note IR Procedure Record Summary Primary Physician: CHAPIS SOTO PA-C Finalized Date/Time: 01/09/25 09:04:32 Pt. Name: MITCHELL BROOKS/Sex: 1975 Female Med Rec #: [id number] Physician: JAKE COPPOLA DO Financial #: [id number] Pt. Type: I Room/Bed: [facility]/A Admit/Disch: 01/02/25 23:07:00 - Institution: Allergies identified in patient's electronic medical record at time of printing on 01/09/25 Entry 1 Entry 2 Entry 3 Substance Vicodin Zanaflex ciprofloxacin Reaction Type Allergy Allergy Allergy Last Modified By: PRADEEP Griffith 11/16/16 PRADEEP Griffith 11/16/16 PRADEEP Griffith 11/16/16 17:26:00 17:26:56 17:25:50 Entry 4 Entry 5 Entry 6 Substance codeine cyproheptadine ibuprofen Reaction Type Allergy Allergy Allergy Last Modified By: PRADEEP Longoria 09/08/17 [place] LPN, RN James M 20:13:00 03/28/24 14:14:48 04/24/17 23:32:07 Entry 7 Entry 8 Entry 9 Substance morphine naproxen penicillin Reaction Type Allergy Allergy Allergy Last Modified By: PRADEEP Griffith 11/16/16 [address] LPN, RN Karen 11/16/16 17:25:40 03/28/24 14:14:27 17:26:20 Case Attendance- IR Entry 1 Entry 2 Entry 3 Case Attendee CHAPIS SOTO Megan R Rad [place] [employer] Fundraising CollectorGenie Conner PA-C Tech Role Performed Primary Surgeon Scrub Technologist Circulating Technologist Details Time In 01/09/25 08:39:00 01/09/25 08:22:00 01/09/25 08:22:00 Time Out 01/09/25 09:05:00 01/09/25 09:05:00 01/09/25 09:05:00 Procedure/Preference IR Epidural Injection IR Epidural Injection IR Epidural Injection Card (SN) (SN) (SN) Last Modified By: PRADEEP Toledo RN Corey Snider, RN Corey 01/09/25 08:56:09 01/09/25 08:56:09 01/09/25 08:56:09 Entry 4 Case Attendee PRADEEP Toledo Role Performed Procedure Nurse Details Time In 01/09/25 08:22:00 Time Out 01/09/25 09:05:00 Procedure/Preference IR Epidural Injection Card (SN) Last Modified By: PRADEEP Toledo 01/09/25 08:56:09 Radiology Procedures- IR Entry 1 Procedure/Preference IR Epidural Injection Actual Procedure IR epidural injection Card (SN) Primary Procedure Yes Primary Surgeon CHAPIS SOTO PA-C Anesthesia/Sedation Local Type Additional Procedure Times Start 01/09/25 08:39:00 Stop 01/09/25 08:56:00 Specialty Service SN Radiology Procedure EBL 0 mL Last Modified By: PRADEEP Toledo 01/09/25 08:56:12 Radiology Procedure Details - IR Entry 1 Radiology Sedation Case Times Sedation Total Time 0 Radiology - Fluid/Drainage Radiology Contrast Contrast Used? Yes Dose 1 mL Medication CONTRAST ISOVUE 300/30ML 10/CA 759910 Radiology Flouroscopy Fluoroscopy Used? Yes Fluoro Dose (mGy) 208.97 Fluoro Time 0.9min Radiology Local Local Used? Yes Local Type: Lidocaine 2% Local Dose 10ml Radiology Procedure Site Site/Location L2-L3 Site Condition No complications Dressing Type Bandaids Technologist Notes 10mg/ml dexamethasone, 1ml lidocaine 1% , and 5ml preservative free 0.9NS injected epidurall L2-L3 Last Modified By: PRADEEP Toledo 01/09/25 09:02:30 General Case Data - IR Entry 1 Case Information Room AH IR 18 Case Level IR Level 2 Wound Class None Specialty SN Radiology Procedure ASA Class None Diagnosis Preop Diagnosis severe lumbar stenosis Postop Same As Preop Yes secondary to facet joint cv Postop Diagnosis severe lumbar stenosis secondary to facet joint cv Last Modified By: PRADEEP Toledo 01/09/25 08:39:30 Procedure Case Times- IR Entry 1 Patient In Procedure Patient In OR 01/09/25 08:22:00 Patient Out of OR 01/09/25 09:05:00 Procedure Start/Stop Procedure Start Time 01/09/25 08:39:00 Procedure Stop Time 01/09/25 08:56:00 Last Modified By: PRADEEP Toledo 01/09/25 08:56:08 Immediate Post OP Note - IR Entry 1 Immediate Post Yes Findings L2-L3 epidural Procedure Note displayed for Physician to review Closure Technique Closure Technique Other than Primary Last Modified By: PRADEEP Toledo 01/09/25 08:57:10 Immediate Post OP Note - IR Signed By: CHAPIS SOTO PA-C 01/09/25 08:56 Allergy Information- IR Entry 1 Allergies Reviewed? Yes Allergies Reviewed Patient With Last Modified By: PRADEEP Toledo 01/09/25 08:35:58 Radiology Protocols/Time Out- IR Entry 1 Preprocedure Clinician Verifies Correct patient ID When Clinically Confirmation of correct using name & date Indicated side(s) and site(s), or MRN, Accurate Correct diagnostic and procedure, complete radiology tests Informed Consent, H & P available, Required update immediately blood products, prior to procedure, if implants, devices applicable and/or special equipment available OR/Procedure Room/Bedside Time 01/09/25 08:39:00 Clinician Verifies Correct patient identity including EMR & records using name and date or medical record number, Accurate procedure consent form, Correct patient position, Necessary equipment is available, Anticipated non-routine events with surgical team (case duration, estimated blood loss, patient specific concerns)., Ritter patient factors for recovery and management identified with surgical team. When Applicable Confirmation correct Team Members SCHWARZENTRAUB, CHAPIS side and site marked, Present for Time Out Charlie SALAS Megan R Relevant images and Door To Door Fundraising Collector, Noah, Rad results are properly Tech Tre Conner RN labeled and Matt appropriately displayed, Alcohol based prep dry, Double verification of sterility indicators complete Instrument Sterility Team Members CHAPIS SOTO Verifying Sterility AJCCharlie Megan R Door To Door Fundraising Collector Procedure IR Epidural Injection (SN) Last Modified By: PRADEEP Toledo 01/09/25 08:40:04 Skin Prep- IR Entry 1 Procedure IR Epidural Injection (SN) Skin Prep Prep Area Back Side Bilateral, Lower By Cheyenne Guerra Rad Prep Agents Betadine Research Worker Encyclopedia Hair Removal Method N/A Last Modified By: PRADEEP Toledo 01/09/25 08:38:29 Patient Positioning- IR Entry 1 Procedure IR Epidural Injection Body Position OP Right Lateral (SN) Feet Uncrossed? Yes Pressure Points Yes Checked Positioning Devices Gel Pads, Pillow Support Last Modified By: PRADEEP Toledo 01/09/25 08:38:38 Radiology Procedure Plan - IR Entry 1 Radiology - Nursing Care Plan Outcome Statement The patient Outcome Statement The patient receives demonstrates knowledge Cont. appropriate of the expected medication(s), safely responses to the administered during the operative/invasive perioperative/invasive procedure., The period., The patient is patient's value system, free from signs and lifestyle, ethnicity, symptoms of injury and culture are caused by extraneous considered, respected, objects (equipment, and incorporated in the instrumentation, perioperative plan of sponges, or sharps). care., The patient is free from signs and symptoms of infection., The patient is free from signs and symptoms of injury related to positioning. Radiology - Action Plan Outcomes Met? Yes City Attorney PRADEEP Toledo Completing Procedure Plan Last Modified By: PRADEEP Toledo 01/09/25 08:38:54 Case Comments Finalized By: PRADEEP Toledo Document Signatures Signed By: PRADEEP Toledo 01/09/25 09:04 [id number] Note Date of Service 01/08/25 Chief Complaint back pain Subjective 49-year-old female with past medical history of hypertension, hyperlipidemia, fibromyalgia, paroxysmal atrial fibrillation on Plavix as she is unable to tolerate aspirin or anticoagulation secondary to gastric ulcer, COPD, neuropathy, bipolar disorder, tobacco abuse, morbid obesity. Patient presented to [facility] as a transfer from [facility] on 01/02/2025 for management of her severe lumbar stenosis. She initially presented to [facility] on 01/01/2025 with low back pain radiating down her legs. She underwent an MRI of the lumbar spine that showed bilateral facet joint cystL3-L4 resulting in severe canal stenosis. She transferred to [facility] for neurosurgery evaluation. Neurosurgery evaluated the patient and felt that she was a candidate for excision of the cyst for decompression. She was also offered nonsurgical option of epidural injections in which patientopted for. The patient is on Plavix, this was held on 01/03/2025, she will need to hold this for 5 days. Planning for epidural injection on 01/07/2025 per IR. Additionally, the patient was found to have a right breast hematoma with concern for deep breast mass. She was evaluated by hematology as wellas general surgery, no acute intervention is planned, patient will follow-up with general surgery in the outpatient setting. PT/OT recommending inpatient rehab, referral sent to [facility]. Patient seen today. She complains of back pain intermittently. She denied chest pain or shortness of breath. No abdominal pain, nausea or vomiting. She is eating and drinking without difficulties. She is hoping to get her epidural injection today. Objective Vitals and Measurements T: 36.4 C (Oral) TMIN: 36.4 C (Oral) TMAX: 36.7 C (Oral) HR: 80 (Apical) RR: 16 BP: 110/70 SpO2: 95% Intake and Output 7AM Yesterday to 7AM Today Intake and Output (Last 24 hours) Intake Oral Intake 60.00 Output Urine Voided 1300.00 Urinary Catheter Output: 1700.00 Stool Count 2.00 Total Summary Total Intake 60.00 Total Output 3000.00 Fluid Balance -2940.00 Physical Exam General: No acute distress. Alert and Appropriate Skin: No rash. Warm, Dry, ecchymosis to bilateral breasts HEENT: Head is normocephalic and atraumatic. No lesions. Pupils equal in size. Extraocular movements within normal limits. Nose: No septal deviation. Mouth: Oropharynx mucosa is without lesion. Neck: Supple. Lungs: Bilaterally clear/diminished breath sounds with no crepitation or wheeze. Unlabored on room air Cardiovascular: Heart is regular rhythm, S1S2, No extra-audible heart tones Abdomen: Abdomen is soft, nontender. Bowel sounds positive all four quadrants. Extremities: No clubbing, cyanosis. Peripheral and distal pulses palpable. Adequate peripheral circulation. Neurological: The patient is awake, oriented to time, people and place. Following simple commands, moving all extremities. Weight Dosing Weight: 149.1 kg (01/02/25) Medications Medications (28) Active Scheduled: (16) brexpiprazole 1 mg tablet 1 mg 1 tab(s), Oral, qDay colestipol 1 gm tablet 1 gram(s) 1 tab(s), Oral, BID dicyclomine 10 mg capsule 10 mg 1 cap(s), Oral, QID famotidine 40 mg tablet 40 mg 1 tab(s), Oral, qHS guaifenesin 600 mg ER 600 mg 1 tab(s), Oral, BID levothyroxine 50 mcg tablet 50 mcg 1 tab(s), Oral, qDay loratadine 10 mg Tablet 10 mg 1 tab(s), Oral, qDay metoprolol tartrate 25 mg tablet 25 mg 1 tab(s), Oral, BID montelukast 10 mg Tablet 10 mg 1 tab(s), Oral, qDay Nicoderm patch REMOVAL 1 EA, Miscellaneous, q24h nicotine 21 mg/24 hr ER patch 21 mg 1 patch(es), Transdermal, q24h oxybutynin 5 mg Tablet 5 mg 1 tab(s), Oral, BID pantoprazole 40 mg EC tablet 40 mg 1 tab(s), Oral, BID pregabalin 75 mg capsule 75 mg 1 cap(s), Oral, TID QUEtiapine 100 mg tablet 100 mg 1 tab(s), Oral, qHS sertraline 25 mg tablet 25 mg 1 tab(s), Oral, qDay Continuous: (0) PRN: (12) acetaminophen 325 mg Tablet 650 mg 2 tab(s), Oral, q4h acetaminophen-HYDROcodone 325-5 mg tablet 1 tab(s), Oral, q4h acetaminophen-HYDROcodone 325-5 mg tablet 2 tab(s), Oral, q4h albuterol - ipratropium 2.5 mg-0.5 mg/3 mL Inhal Lauren UD 3 mL, Inhalation, q4hRT benztropine 0.5 mg tablet 0.5 mg 1 tab(s), Oral, BID calcium carbonate 500 mg Chewable 500 mg 1 tab(s), Chewed, q4h dextrose 50% Solution Disp syringe 50 mL 25 gram(s) 50 mL, IV Push, AsDirected HYDROmorphone 0.5 mg/0.5 mL syringe 0.25 mg 0.25 mL, IV Push, q3h hydroxyzine hcl 25 mg tablet 25 mg 1 tab(s), Oral, TID methocarbamol 750 mg Tablet 750 mg 1 tab(s), Oral, TID ondansetron 2 mg/ 1 mL 2 mL INJ 4 mg 2 mL, IV Push, q4h polyethylene glycol 3350 - UD packet 17 gram(s) 15 mL, Oral, qDay Lab Results 01/08 11:04 WBC: 10.3 Hgb: 10.5 L Hct: 32.5 L Platelet: 320 Neutrophil %: 70.5 Glucose Level: 123 H Sodium Level: 140 Potassium Level: 3.8 BUN: 15.0 Creatinine Lvl (s): 0.54 01/07 05:32 WBC: 11.1 H Hgb: 9.8 L Hct: 30.6 L Platelet: 320 Neutrophil %: 65.0 EKG No qualifying data available. Assessment/Plan Acute on chronic back pain Severe lumbar stenosis L3-L4 synovial cyst Bilateral chest hematoma with concern for deep mass Anemia Leukocytosis AF on Plavix Hx of gastric ulcer Other history HTN, HLD, COPD without exacerbation, neuropathy, bipolar disorder, tobacco abuse, morbid obesity, fibromyalgia Plan Neurosurgery followed, offered surgical and nonsurgical options. Patient opted for nonsurgical withepidural injection, she will need to be off Plavix for 5 days. Plavix held 01/03. IR epidural injection pending Continue pain control General surgery and Hematology following for breast hematoma with concern for deep mass, no acute surgical intervention planned. Patient to follow up OP with general surgery. Hemoglobin stable at 10.5, transfuse to keep hemoglobin 7 or above. Plavix on hold for injection, risks discussed with patient. To resume post IR injection. Continue remainder of home chronic medications PT/OT recommending inpatient rehab, pre-CERT pending for [facility] Level of Care Indication Regular Floor DVT Prophylaxis Enoxaparin SQ Maintenance IVF Indication NA / No maintenance IVF Indwelling Urinary Catheter Indication NA No indwelling catheter Anticipated Timeline of Discharge 24 hours Anticipated DC Disposition SNF Plan discussed with patient Case discussed with Dr. Coppola Digitally Signed by FAYE IRVING on 01/08/2025 12:41 PM [id number] Interventional radiology Progress note Due to IR schedule availability will reassess for injection 5-29-25. Floor made aware. Digitally Signed by Nabila More RN on 01/08/2025 03:46 PM [facility] [id number] Interventional radiology Progress note Due to IR schedule availability will reassess for injection 5-29-25. Floor made aware. Digitally Signed by Nabila More RN on 01/08/2025 03:46 PM [facility] [id number] Nurse Progress note this nurse reviewed and agrees with [place] Student Nurse, Edilma Miller's charting and medication administration. Digitally Signed by Clarence Paniagua RN on 01/08/2025 03:01 PM [facility] [id number] Note Date of Service 01/08/25 Chief Complaint back pain Subjective 49-year-old female with past medical history of hypertension, hyperlipidemia, fibromyalgia, paroxysmal atrial fibrillation on Plavix as she is unable to tolerate aspirin or anticoagulation secondary to gastric ulcer, COPD, neuropathy, bipolar disorder, tobacco abuse, morbid obesity. Patient presented to [facility] as a transfer from [facility] on 01/02/2025 for management of her severe lumbar stenosis. She initially presented to [facility] on 01/01/2025 with low back pain radiating down her legs. She underwent an MRI of the lumbar spine that showed bilateral facet joint cystL3-L4 resulting in severe canal stenosis. She transferred to [facility] for neurosurgery evaluation. Neurosurgery evaluated the patient and felt that she was a candidate for excision of the cyst for decompression. She was also offered nonsurgical option of epidural injections in which patientopted for. The patient is on Plavix, this was held on 01/03/2025, she will need to hold this for 5 days. Planning for epidural injection on 01/07/2025 per IR. Additionally, the patient was found to have a right breast hematoma with concern for deep breast mass. She was evaluated by hematology as wellas general surgery, no acute intervention is planned, patient will follow-up with general surgery in the outpatient setting. PT/OT recommending inpatient rehab, referral sent to [facility]. Patient seen today. She complains of back pain intermittently. She denied chest pain or shortness of breath. No abdominal pain, nausea or vomiting. She is eating and drinking without difficulties. She is hoping to get her epidural injection today. Objective Vitals and Measurements T: 36.4 C (Oral) TMIN: 36.4 C (Oral) TMAX: 36.7 C (Oral) HR: 80 (Apical) RR: 16 BP: 110/70 SpO2: 95% Intake and Output 7AM Yesterday to 7AM Today Intake and Output (Last 24 hours) Intake Oral Intake 60.00 Output Urine Voided 1300.00 Urinary Catheter Output: 1700.00 Stool Count 2.00 Total Summary Total Intake 60.00 Total Output 3000.00 Fluid Balance -2940.00 Physical Exam General: No acute distress. Alert and Appropriate Skin: No rash. Warm, Dry, ecchymosis to bilateral breasts HEENT: Head is normocephalic and atraumatic. No lesions. Pupils equal in size. Extraocular movements within normal limits. Nose: No septal deviation. Mouth: Oropharynx mucosa is without lesion. Neck: Supple. Lungs: Bilaterally clear/diminished breath sounds with no crepitation or wheeze. Unlabored on room air Cardiovascular: Heart is regular rhythm, S1S2, No extra-audible heart tones Abdomen: Abdomen is soft, nontender. Bowel sounds positive all four quadrants. Extremities: No clubbing, cyanosis. Peripheral and distal pulses palpable. Adequate peripheral circulation. Neurological: The patient is awake, oriented to time, people and place. Following simple commands, moving all extremities. Weight Dosing Weight: 149.1 kg (01/02/25) Medications Medications (28) Active Scheduled: (16) brexpiprazole 1 mg tablet 1 mg 1 tab(s), Oral, qDay colestipol 1 gm tablet 1 gram(s) 1 tab(s), Oral, BID dicyclomine 10 mg capsule 10 mg 1 cap(s), Oral, QID famotidine 40 mg tablet 40 mg 1 tab(s), Oral, qHS guaifenesin 600 mg ER 600 mg 1 tab(s), Oral, BID levothyroxine 50 mcg tablet 50 mcg 1 tab(s), Oral, qDay loratadine 10 mg Tablet 10 mg 1 tab(s), Oral, qDay metoprolol tartrate 25 mg tablet 25 mg 1 tab(s), Oral, BID montelukast 10 mg Tablet 10 mg 1 tab(s), Oral, qDay Nicoderm patch REMOVAL 1 EA, Miscellaneous, q24h nicotine 21 mg/24 hr ER patch 21 mg 1 patch(es), Transdermal, q24h oxybutynin 5 mg Tablet 5 mg 1 tab(s), Oral, BID pantoprazole 40 mg EC tablet 40 mg 1 tab(s), Oral, BID pregabalin 75 mg capsule 75 mg 1 cap(s), Oral, TID QUEtiapine 100 mg tablet 100 mg 1 tab(s), Oral, qHS sertraline 25 mg tablet 25 mg 1 tab(s), Oral, qDay Continuous: (0) PRN: (12) acetaminophen 325 mg Tablet 650 mg 2 tab(s), Oral, q4h acetaminophen-HYDROcodone 325-5 mg tablet 1 tab(s), Oral, q4h acetaminophen-HYDROcodone 325-5 mg tablet 2 tab(s), Oral, q4h albuterol - ipratropium 2.5 mg-0.5 mg/3 mL Inhal Lauren UD 3 mL, Inhalation, q4hRT benztropine 0.5 mg tablet 0.5 mg 1 tab(s), Oral, BID calcium carbonate 500 mg Chewable 500 mg 1 tab(s), Chewed, q4h dextrose 50% Solution Disp syringe 50 mL 25 gram(s) 50 mL, IV Push, AsDirected HYDROmorphone 0.5 mg/0.5 mL syringe 0.25 mg 0.25 mL, IV Push, q3h hydroxyzine hcl 25 mg tablet 25 mg 1 tab(s), Oral, TID methocarbamol 750 mg Tablet 750 mg 1 tab(s), Oral, TID ondansetron 2 mg/ 1 mL 2 mL INJ 4 mg 2 mL, IV Push, q4h polyethylene glycol 3350 - UD packet 17 gram(s) 15 mL, Oral, qDay Lab Results 01/08 11:04 WBC: 10.3 Hgb: 10.5 L Hct: 32.5 L Platelet: 320 Neutrophil %: 70.5 Glucose Level: 123 H Sodium Level: 140 Potassium Level: 3.8 BUN: 15.0 Creatinine Lvl (s): 0.54 01/07 05:32 WBC: 11.1 H Hgb: 9.8 L Hct: 30.6 L Platelet: 320 Neutrophil %: 65.0 EKG No qualifying data available. Assessment/Plan Acute on chronic back pain Severe lumbar stenosis L3-L4 synovial cyst Bilateral chest hematoma with concern for deep mass Anemia Leukocytosis AF on Plavix Hx of gastric ulcer Other history HTN, HLD, COPD without exacerbation, neuropathy, bipolar disorder, tobacco abuse, morbid obesity, fibromyalgia Plan Neurosurgery followed, offered surgical and nonsurgical options. Patient opted for nonsurgical withepidural injection, she will need to be off Plavix for 5 days. Plavix held 01/03. IR epidural injection pending Continue pain control General surgery and Hematology following for breast hematoma with concern for deep mass, no acute surgical intervention planned. Patient to follow up OP with general surgery. Hemoglobin stable at 10.5, transfuse to keep hemoglobin 7 or above. Plavix on hold for injection, risks discussed with patient. To resume post IR injection. Continue remainder of home chronic medications PT/OT recommending inpatient rehab, pre-CERT pending for [facility] Level of Care Indication Regular Floor DVT Prophylaxis Enoxaparin SQ Maintenance IVF Indication NA / No maintenance IVF Indwelling Urinary Catheter Indication NA No indwelling catheter Anticipated Timeline of Discharge 24 hours Anticipated DC Disposition SNF Plan discussed with patient Case discussed with Dr. Coppola Digitally Signed by FAYE IRVING on 01/08/2025 12:41 PM [facility] [id number] Nurse Progress note This nurse reviewed and agrees with [place] Student Nurse, Edilma Miller charting and medication administration. Digitally Signed by Clarence Paniagua RN on 01/08/2025 05:52 AM [facility] [id number] Interventional radiology Progress note Spoke with PRADEEP Castelan regarding order for Epidural. She was informed that IR is unable to do procedure today due to patient having lovenox yesterday. PRADEEP Castelan advised to get an order from ordering doctor to hold lovenox, and IR will plan procedure for tomorrow pending schedule availability. Digitally Signed by Sarah Huerta RN on 01/07/2025 02:09 PM [facility] [id number] Note Date of Service 01/07/25 Chief Complaint back pain Subjective 49-year-old female with past medical history of hypertension, hyperlipidemia, fibromyalgia, paroxysmal atrial fibrillation on Plavix as she is unable to tolerate aspirin or anticoagulation secondary to gastric ulcer, COPD, neuropathy, bipolar disorder, tobacco abuse, morbid obesity. Patient presented to [facility] as a transfer from [facility] on 01/02/2025 for management of her severe lumbar stenosis. She initially presented to [facility] on 01/01/2025 with low back pain radiating down her legs. She underwent an MRI of the lumbar spine that showed bilateral facet joint cystL3-L4 resulting in severe canal stenosis. She transferred to [facility] for neurosurgery evaluation. Neurosurgery evaluated the patient and felt that she was a candidate for excision of the cyst for decompression. She was also offered nonsurgical option of epidural injections in which patientopted for. The patient is on Plavix, this was held on 01/03/2025, she will need to hold this for 5 days. Planning for epidural injection on 01/07/2025 per IR. Additionally, the patient was found to have a right breast hematoma with concern for deep breast mass. She was evaluated by hematology as wellas general surgery, no acute intervention is planned, patient will follow-up with general surgery in the outpatient setting. PT/OT recommending inpatient rehab, referral sent to [facility]. Patient seen today. She states she has intermittent back pain. She denied chest pain or shortness of breath. No abdominal pain, nausea or vomiting. She is eating and drinking without difficulties. She is moving her bowels. Objective Vitals and Measurements T: 36.8 C (Oral) TMIN: 36.6 C (Oral) TMAX: 36.8 C (Oral) HR: 83 (Apical) RR: 16 BP: 114/77 SpO2: 95% Intake and Output 7AM Yesterday to 7AM Today Intake and Output (Last 24 hours) Intake Oral Intake 260.00 Output Urinary Catheter Output: 1600.00 Stool Count 1.00 Diaper Count 1.00 Total Summary Total Intake 260.00 Total Output 1600.00 Fluid Balance -1340.00 Physical Exam General: No acute distress. Alert and Appropriate Skin: No rash. Warm, Dry, ecchomyosis to bilateral breasts HEENT: Head is normocephalic and atraumatic. No lesions. Pupils equal in size. Extraocular movements within normal limits. Nose: No septal deviation. Mouth: Oropharynx mucosa is without lesion. Neck: Supple. Lungs: Bilaterally clear/diminished breath sounds with no crepitation or wheeze. Unlabored on room air Cardiovascular: Heart is regular rhythm, S1S2, No extra-audible heart tones Abdomen: Abdomen is soft, nontender. Bowel sounds positive all four quadrants. Extremities: No clubbing, cyanosis. Peripheral and distal pulses palpable. Adequate peripheral circulation. Neurological: The patient is awake, oriented to time, people and place. Following simple commands, moving all extremities. Weight Dosing Weight: 149.1 kg (01/02/25) Medications Medications (28) Active Scheduled: (17) brexpiprazole 1 mg tablet 1 mg 1 tab(s), Oral, qDay colestipol 1 gm tablet 1 gram(s) 1 tab(s), Oral, BID dicyclomine 10 mg capsule 10 mg 1 cap(s), Oral, QID enoxaparin 40 mg/ 0.4mL syringe 40 mg 0.4 mL, Subcutaneous, qDay famotidine 40 mg tablet 40 mg 1 tab(s), Oral, qHS guaifenesin 600 mg ER 600 mg 1 tab(s), Oral, BID levothyroxine 50 mcg tablet 50 mcg 1 tab(s), Oral, qDay loratadine 10 mg Tablet 10 mg 1 tab(s), Oral, qDay metoprolol tartrate 25 mg tablet 25 mg 1 tab(s), Oral, BID montelukast 10 mg Tablet 10 mg 1 tab(s), Oral, qDay Nicoderm patch REMOVAL 1 EA, Miscellaneous, q24h nicotine 21 mg/24 hr ER patch 21 mg 1 patch(es), Transdermal, q24h oxybutynin 5 mg Tablet 5 mg 1 tab(s), Oral, BID pantoprazole 40 mg EC tablet 40 mg 1 tab(s), Oral, BID pregabalin 75 mg capsule 75 mg 1 cap(s), Oral, TID QUEtiapine 100 mg tablet 100 mg 1 tab(s), Oral, qHS sertraline 25 mg tablet 25 mg 1 tab(s), Oral, qDay Continuous: (0) PRN: (11) acetaminophen 325 mg Tablet 650 mg 2 tab(s), Oral, q4h acetaminophen-HYDROcodone 325-5 mg tablet 1 tab(s), Oral, q4h acetaminophen-HYDROcodone 325-5 mg tablet 2 tab(s), Oral, q4h albuterol - ipratropium 2.5 mg-0.5 mg/3 mL Inhal Lauren UD 3 mL, Inhalation, q4hRT benztropine 0.5 mg tablet 0.5 mg 1 tab(s), Oral, BID dextrose 50% Solution Disp syringe 50 mL 25 gram(s) 50 mL, IV Push, AsDirected HYDROmorphone 0.5 mg/0.5 mL syringe 0.25 mg 0.25 mL, IV Push, q3h hydroxyzine hcl 25 mg tablet 25 mg 1 tab(s), Oral, TID methocarbamol 750 mg Tablet 750 mg 1 tab(s), Oral, TID ondansetron 2 mg/ 1 mL 2 mL INJ 4 mg 2 mL, IV Push, q4h polyethylene glycol 3350 - UD packet 17 gram(s) 15 mL, Oral, qDay Lab Results 01/07 05:32 WBC: 11.1 H Hgb: 9.8 L Hct: 30.6 L Platelet: 320 Neutrophil %: 65.0 01/06 07:17 WBC: 11.7 H Hgb: 9.8 L Hct: 30.2 L Platelet: 294 Neutrophil %: 66.8 Glucose Level: 104 Sodium Level: 141 Potassium Level: 4.3 BUN: 13.0 Creatinine Lvl (s): 0.71 EKG No qualifying data available. Assessment/Plan Acute on chronic back pain Severe lumbar stenosis L3-L4 synovial cyst Bilateral chest hematoma with concern for deep mass Anemia Leukocytosis AF on Plavix Hx of gastric ulcer Other history HTN, HLD, COPD without exacerbation, neuropathy, bipolar disorder, tobacco abuse, morbid obesity, fibromyalgia Plan Neurosurgery following, offered surgical and nonsurgical options. Patient opted for nonsurgical with epidural injection, she will need to be off Plavix for 5 days. Plavix held 01/03. IR epidural injection pending Continue pain control General surgery and Hematology following for breast hematoma with concern for deep mass, no acute surgical intervention planned. Patient to follow up OP with general surgery. Hemoglobin stable at 9.8, transfuse to keep hemoglobin 7 or above. Plavix on hold for injection, risks discussed with patient. Continue remainder of home chronic medications PT/OT recommending inpatient rehab, pre-CERT pending for [facility] Level of Care Indication Regular Floor DVT Prophylaxis Enoxaparin SQ Maintenance IVF Indication NA / No maintenance IVF Indwelling Urinary Catheter Indication NA No indwelling catheter Anticipated Timeline of Discharge 24 hours Anticipated DC Disposition SNF Plan discussed with patient Case discussed with Dr. Coppola Digitally Signed by FAYE IRVING on 01/07/2025 11:49 AM [id number] Note Date of Service 01/06/25 Chief Complaint Acute on chronic back pain Subjective 49-year-old female with past medical history of hypertension, hyperlipidemia, fibromyalgia, paroxysmal atrial fibrillation on Plavix as she is unable to tolerate aspirin or anticoagulation secondary to gastric ulcer, COPD, neuropathy, bipolar disorder, tobacco abuse, morbid obesity. Patient presented to [facility] as a transfer from [facility] on 01/02/2025 for management of her severe lumbar stenosis. She initially presented to [facility] on 01/01/2025 with low back pain radiating down her legs. She underwent an MRI of the lumbar spine that showed bilateral facet joint cystL3-L4 resulting in severe canal stenosis. She transferred to [facility] for neurosurgery evaluation. Neurosurgery evaluated the patient and felt that she was a candidate for excision of the cyst for decompression. She was also offered nonsurgical option of epidural injections in which patientopted for. The patient is on Plavix, this was held on 01/03/2025, she will need to hold this for 5 days. Planning for epidural injection on 01/07/2025 per IR. Additionally, the patient was found to have a right breast hematoma with concern for deep breast mass. She was evaluated by hematology as wellas general surgery, no acute intervention is planned, patient will follow-up with general surgery in the outpatient setting. PT/OT recommending inpatient rehab, referral sent to [facility]. Patient seen today. She states her back pain is present but controlled. No CP or SOB. No abdominal pain, N/V/D. She is eating and drinking without issues. Objective Vitals and Measurements T: 36.9 C (Oral) TMIN: 36.4 C (Oral) TMAX: 36.9 C (Oral) HR: 75 (Apical) RR: 16 BP: 97/60 SpO2: 95% Intake and Output 7AM Yesterday to 7AM Today Intake and Output (Last 24 hours) Intake Oral Intake 1160.00 Output Urinary Catheter Output: 3400.00 Stool Count 0.00 Diaper Count 1.00 Total Summary Total Intake 1160.00 Total Output 3400.00 Fluid Balance -2240.00 Physical Exam General: No acute distress. Alert and Appropriate Skin: No rash. Warm, Dry, ecchomyosis to bilateral breasts HEENT: Head is normocephalic and atraumatic. No lesions. Pupils equal in size. Extraocular movements within normal limits. Nose: No septal deviation. Mouth: Oropharynx mucosa is without lesion. Neck: Supple. Lungs: Bilaterally clear/diminished breath sounds with no crepitation or wheeze. Unlabored on room air Cardiovascular: Heart is regular rhythm, S1S2, No extra-audible heart tones Abdomen: Abdomen is soft, nontender. Bowel sounds positive all four quadrants. Extremities: No clubbing, cyanosis. Peripheral and distal pulses palpable. Adequate peripheral circulation. Neurological: The patient is awake, oriented to time, people and place. Following simple commands, moving all extremities. Weight Dosing Weight: 149.1 kg (01/02/25) Medications Medications (28) Active Scheduled: (17) brexpiprazole 1 mg tablet 1 mg 1 tab(s), Oral, qDay colestipol 1 gm tablet 1 gram(s) 1 tab(s), Oral, BID dicyclomine 10 mg capsule 10 mg 1 cap(s), Oral, QID enoxaparin 40 mg/ 0.4mL syringe 40 mg 0.4 mL, Subcutaneous, qDay famotidine 40 mg tablet 40 mg 1 tab(s), Oral, qHS guaifenesin 600 mg ER 600 mg 1 tab(s), Oral, BID levothyroxine 50 mcg tablet 50 mcg 1 tab(s), Oral, qDay loratadine 10 mg Tablet 10 mg 1 tab(s), Oral, qDay metoprolol tartrate 25 mg tablet 25 mg 1 tab(s), Oral, BID montelukast 10 mg Tablet 10 mg 1 tab(s), Oral, qDay Nicoderm patch REMOVAL 1 EA, Miscellaneous, q24h nicotine 21 mg/24 hr ER patch 21 mg 1 patch(es), Transdermal, q24h oxybutynin 5 mg Tablet 5 mg 1 tab(s), Oral, BID pantoprazole 40 mg EC tablet 40 mg 1 tab(s), Oral, BID pregabalin 75 mg capsule 75 mg 1 cap(s), Oral, TID QUEtiapine 100 mg tablet 100 mg 1 tab(s), Oral, qHS sertraline 25 mg tablet 25 mg 1 tab(s), Oral, qDay Continuous: (0) PRN: (11) acetaminophen 325 mg Tablet 650 mg 2 tab(s), Oral, q4h acetaminophen-HYDROcodone 325-5 mg tablet 1 tab(s), Oral, q4h acetaminophen-HYDROcodone 325-5 mg tablet 2 tab(s), Oral, q4h albuterol - ipratropium 2.5 mg-0.5 mg/3 mL Inhal Lauren UD 3 mL, Inhalation, q4hRT benztropine 0.5 mg tablet 0.5 mg 1 tab(s), Oral, BID dextrose 50% Solution Disp syringe 50 mL 25 gram(s) 50 mL, IV Push, AsDirected HYDROmorphone 0.5 mg/0.5 mL syringe 0.25 mg 0.25 mL, IV Push, q3h hydroxyzine hcl 25 mg tablet 25 mg 1 tab(s), Oral, TID methocarbamol 750 mg Tablet 750 mg 1 tab(s), Oral, TID ondansetron 2 mg/ 1 mL 2 mL INJ 4 mg 2 mL, IV Push, q4h polyethylene glycol 3350 - UD packet 17 gram(s) 15 mL, Oral, qDay Lab Results 01/06 07:17 WBC: 11.7 H Hgb: 9.8 L Hct: 30.2 L Platelet: 294 Neutrophil %: 66.8 Glucose Level: 104 Sodium Level: 141 Potassium Level: 4.3 BUN: 13.0 Creatinine Lvl (s): 0.71 EKG No qualifying data available. Assessment/Plan Acute on chronic back pain Severe lumbar stenosis L3-L4 synovial cyst Bilateral chest hematoma with concern for deep mass Anemia Leukocytosis AF on Plavix Hx of gastric ulcer Other history HTN, HLD, COPD without exacerbation, neuropathy, bipolar disorder, tobacco abuse, morbid obesity, fibromyalgia Plan Neurosurgery following, offered surgical and nonsurgical options. Patient opted for nonsurgical with epidural injection, she will need to be off Plavix for 5 days. Plavix held 01/03. Will plan for IR injection on 01/07 as she will need to stay in hospital awaiting rehab precert. Continue pain control General surgery and Hematology following for breast hematoma with concern for deep mass, no acute surgical intervention planned. Patient to follow up OP with general surgery. Hemoglobin stable at 9.8, transfuse to keep hemoglobin 7 or above. Plavix on hold for injection, risks discussed with patient. Continue remainder of home chronic medications PT/OT recommending inpatient rehab Level of Care Indication Regular Floor DVT Prophylaxis Enoxaparin SQ Maintenance IVF Indication NA / No maintenance IVF Indwelling Urinary Catheter Indication NA No indwelling catheter Anticipated Timeline of Discharge 24 hours Anticipated DC Disposition SNF Plan discussed with patient Case discussed with Dr. Coppola Digitally Signed by FAYE IRVING on 01/06/2025 10:10 AM [id number] Note Date of Service 01/06/25 Chief Complaint Acute on chronic back pain Subjective 49-year-old female with past medical history of hypertension, hyperlipidemia, fibromyalgia, paroxysmal atrial fibrillation on Plavix as she is unable to tolerate aspirin or anticoagulation secondary to gastric ulcer, COPD, neuropathy, bipolar disorder, tobacco abuse, morbid obesity. Patient presented to [facility] as a transfer from [facility] on 01/02/2025 for management of her severe lumbar stenosis. She initially presented to [facility] on 01/01/2025 with low back pain radiating down her legs. She underwent an MRI of the lumbar spine that showed bilateral facet joint cystL3-L4 resulting in severe canal stenosis. She transferred to [facility] for neurosurgery evaluation. Neurosurgery evaluated the patient and felt that she was a candidate for excision of the cyst for decompression. She was also offered nonsurgical option of epidural injections in which patientopted for. The patient is on Plavix, this was held on 01/03/2025, she will need to hold this for 5 days. Planning for epidural injection on 01/07/2025 per IR. Additionally, the patient was found to have a right breast hematoma with concern for deep breast mass. She was evaluated by hematology as wellas general surgery, no acute intervention is planned, patient will follow-up with general surgery in the outpatient setting. PT/OT recommending inpatient rehab, referral sent to [facility]. Patient seen today. She states her back pain is present but controlled. No CP or SOB. No abdominal pain, N/V/D. She is eating and drinking without issues. Objective Vitals and Measurements T: 36.9 C (Oral) TMIN: 36.4 C (Oral) TMAX: 36.9 C (Oral) HR: 75 (Apical) RR: 16 BP: 97/60 SpO2: 95% Intake and Output 7AM Yesterday to 7AM Today Intake and Output (Last 24 hours) Intake Oral Intake 1160.00 Output Urinary Catheter Output: 3400.00 Stool Count 0.00 Diaper Count 1.00 Total Summary Total Intake 1160.00 Total Output 3400.00 Fluid Balance -2240.00 Physical Exam General: No acute distress. Alert and Appropriate Skin: No rash. Warm, Dry, ecchomyosis to bilateral breasts HEENT: Head is normocephalic and atraumatic. No lesions. Pupils equal in size. Extraocular movements within normal limits. Nose: No septal deviation. Mouth: Oropharynx mucosa is without lesion. Neck: Supple. Lungs: Bilaterally clear/diminished breath sounds with no crepitation or wheeze. Unlabored on room air Cardiovascular: Heart is regular rhythm, S1S2, No extra-audible heart tones Abdomen: Abdomen is soft, nontender. Bowel sounds positive all four quadrants. Extremities: No clubbing, cyanosis. Peripheral and distal pulses palpable. Adequate peripheral circulation. Neurological: The patient is awake, oriented to time, people and place. Following simple commands, moving all extremities. Weight Dosing Weight: 149.1 kg (01/02/25) Medications Medications (28) Active Scheduled: (17) brexpiprazole 1 mg tablet 1 mg 1 tab(s), Oral, qDay colestipol 1 gm tablet 1 gram(s) 1 tab(s), Oral, BID dicyclomine 10 mg capsule 10 mg 1 cap(s), Oral, QID enoxaparin 40 mg/ 0.4mL syringe 40 mg 0.4 mL, Subcutaneous, qDay famotidine 40 mg tablet 40 mg 1 tab(s), Oral, qHS guaifenesin 600 mg ER 600 mg 1 tab(s), Oral, BID levothyroxine 50 mcg tablet 50 mcg 1 tab(s), Oral, qDay loratadine 10 mg Tablet 10 mg 1 tab(s), Oral, qDay metoprolol tartrate 25 mg tablet 25 mg 1 tab(s), Oral, BID montelukast 10 mg Tablet 10 mg 1 tab(s), Oral, qDay Nicoderm patch REMOVAL 1 EA, Miscellaneous, q24h nicotine 21 mg/24 hr ER patch 21 mg 1 patch(es), Transdermal, q24h oxybutynin 5 mg Tablet 5 mg 1 tab(s), Oral, BID pantoprazole 40 mg EC tablet 40 mg 1 tab(s), Oral, BID pregabalin 75 mg capsule 75 mg 1 cap(s), Oral, TID QUEtiapine 100 mg tablet 100 mg 1 tab(s), Oral, qHS sertraline 25 mg tablet 25 mg 1 tab(s), Oral, qDay Continuous: (0) PRN: (11) acetaminophen 325 mg Tablet 650 mg 2 tab(s), Oral, q4h acetaminophen-HYDROcodone 325-5 mg tablet 1 tab(s), Oral, q4h acetaminophen-HYDROcodone 325-5 mg tablet 2 tab(s), Oral, q4h albuterol - ipratropium 2.5 mg-0.5 mg/3 mL Inhal Lauren UD 3 mL, Inhalation, q4hRT benztropine 0.5 mg tablet 0.5 mg 1 tab(s), Oral, BID dextrose 50% Solution Disp syringe 50 mL 25 gram(s) 50 mL, IV Push, AsDirected HYDROmorphone 0.5 mg/0.5 mL syringe 0.25 mg 0.25 mL, IV Push, q3h hydroxyzine hcl 25 mg tablet 25 mg 1 tab(s), Oral, TID methocarbamol 750 mg Tablet 750 mg 1 tab(s), Oral, TID ondansetron 2 mg/ 1 mL 2 mL INJ 4 mg 2 mL, IV Push, q4h polyethylene glycol 3350 - UD packet 17 gram(s) 15 mL, Oral, qDay Lab Results 01/06 07:17 WBC: 11.7 H Hgb: 9.8 L Hct: 30.2 L Platelet: 294 Neutrophil %: 66.8 Glucose Level: 104 Sodium Level: 141 Potassium Level: 4.3 BUN: 13.0 Creatinine Lvl (s): 0.71 EKG No qualifying data available. Assessment/Plan Acute on chronic back pain Severe lumbar stenosis L3-L4 synovial cyst Bilateral chest hematoma with concern for deep mass Anemia Leukocytosis AF on Plavix Hx of gastric ulcer Other history HTN, HLD, COPD without exacerbation, neuropathy, bipolar disorder, tobacco abuse, morbid obesity, fibromyalgia Plan Neurosurgery following, offered surgical and nonsurgical options. Patient opted for nonsurgical with epidural injection, she will need to be off Plavix for 5 days. Plavix held 01/03. Will plan for IR injection on 01/07 as she will need to stay in hospital awaiting rehab precert. Continue pain control General surgery and Hematology following for breast hematoma with concern for deep mass, no acute surgical intervention planned. Patient to follow up OP with general surgery. Hemoglobin stable at 9.8, transfuse to keep hemoglobin 7 or above. Plavix on hold for injection, risks discussed with patient. Continue remainder of home chronic medications PT/OT recommending inpatient rehab Level of Care Indication Regular Floor DVT Prophylaxis Enoxaparin SQ Maintenance IVF Indication NA / No maintenance IVF Indwelling Urinary Catheter Indication NA No indwelling catheter Anticipated Timeline of Discharge 24 hours Anticipated DC Disposition SNF Plan discussed with patient Case discussed with Dr. Coppola Digitally Signed by FAYE IRVING on 01/06/2025 10:10 AM [id number] Hematology Progress note Subjective Patient was feeling well Pain in the lower back No new bleeding Objective Vitals and Measurements T: 36.9 C (Oral) TMIN: 36.4 C (Oral) TMAX: 36.9 C (Oral) HR: 71 RR: 18 BP: 98/64 SpO2: 93% Intake and Output 7AM Yesterday to 7AM Today Intake and Output (Last 24 hours) Intake Oral Intake 920.00 Output Urinary Catheter Output: 4150.00 Stool Count 0.00 Diaper Count 1.00 Total Summary Total Intake 920.00 Total Output 4150.00 Fluid Balance -3230.00 Physical Exam In no apparent distress TRIBAL DELEGATE: She was awake and alert Skin: Ecchymosis in the right and left side of upper chest extending to the breast Weight Dosing Weight: 149.1 kg (01/02/25) Medications Medications (28) Active Scheduled: (17) brexpiprazole 1 mg tablet 1 mg 1 tab(s), Oral, qDay colestipol 1 gm tablet 1 gram(s) 1 tab(s), Oral, BID dicyclomine 10 mg capsule 10 mg 1 cap(s), Oral, QID enoxaparin 40 mg/ 0.4mL syringe 40 mg 0.4 mL, Subcutaneous, qDay famotidine 40 mg tablet 40 mg 1 tab(s), Oral, qHS guaifenesin 600 mg ER 600 mg 1 tab(s), Oral, BID levothyroxine 50 mcg tablet 50 mcg 1 tab(s), Oral, qDay loratadine 10 mg Tablet 10 mg 1 tab(s), Oral, qDay metoprolol tartrate 25 mg tablet 25 mg 1 tab(s), Oral, BID montelukast 10 mg Tablet 10 mg 1 tab(s), Oral, qDay Nicoderm patch REMOVAL 1 EA, Miscellaneous, q24h nicotine 21 mg/24 hr ER patch 21 mg 1 patch(es), Transdermal, q24h oxybutynin 5 mg Tablet 5 mg 1 tab(s), Oral, BID pantoprazole 40 mg EC tablet 40 mg 1 tab(s), Oral, BID pregabalin 75 mg capsule 75 mg 1 cap(s), Oral, TID QUEtiapine 100 mg tablet 100 mg 1 tab(s), Oral, qHS sertraline 25 mg tablet 25 mg 1 tab(s), Oral, qDay Continuous: (0) PRN: (11) acetaminophen 325 mg Tablet 650 mg 2 tab(s), Oral, q4h acetaminophen-HYDROcodone 325-5 mg tablet 1 tab(s), Oral, q4h acetaminophen-HYDROcodone 325-5 mg tablet 2 tab(s), Oral, q4h albuterol - ipratropium 2.5 mg-0.5 mg/3 mL Inhal Lauren UD 3 mL, Inhalation, q4hRT benztropine 0.5 mg tablet 0.5 mg 1 tab(s), Oral, BID dextrose 50% Solution Disp syringe 50 mL 25 gram(s) 50 mL, IV Push, AsDirected HYDROmorphone 0.5 mg/0.5 mL syringe 0.25 mg 0.25 mL, IV Push, q3h hydroxyzine hcl 25 mg tablet 25 mg 1 tab(s), Oral, TID methocarbamol 750 mg Tablet 750 mg 1 tab(s), Oral, TID ondansetron 2 mg/ 1 mL 2 mL INJ 4 mg 2 mL, IV Push, q4h polyethylene glycol 3350 - UD packet 17 gram(s) 15 mL, Oral, qDay Lab Results No 36 Hour Lab Data EKG No qualifying data available. Assessment/Plan Allergic rhinitis Arthritis of both knees Bipolar disorder Fibromyalgia Patient developed hematoma in the right breast which she later on involve the left breast as well This was attributed to a bout of coughing and sneezing Patient was taking Plavix started by cardiology She did not have any coronary artery stents PT and PTT were normal Plavix was held. Hemoglobin was stable now No other areas of bleeding 01/04 06:21 WBC: 11.3 H Hgb: 9.3 L Hct: 29.4 L Platelet: 264 No previous history of bleeding. Continue monitoring CBC Patient's questions were answered. On examination area of ecchymosis in the chest was stable. Patient denied any weakness No other bleeding [id number] Digitally Signed by JENNY LUZ MD on 01/06/2025 04:18 AM [id number] Hematology Progress note Subjective Blood seen under the skin in the chest No other areas of bleeding Patient denied any pain No other problems Objective Vitals and Measurements T: 36.4 C (Oral) TMIN: 36.4 C (Oral) TMAX: 36.9 C (Oral) HR: 82 (Apical) RR: 16 BP: 119/71 SpO2: 92% Intake and Output 7AM Yesterday to 7AM Today Intake and Output (Last 24 hours) Intake Oral Intake 660.00 Output Urinary Catheter Output: 2300.00 Stool Count 0.00 Diaper Count 2.00 Total Summary Total Intake 660.00 Total Output 2300.00 Fluid Balance -1640.00 Physical Exam In no apparent distress TRI[employer] DELEGATE: She was awake and alert Respiratory: No breathing difficulty Skin: Ecchymosis seen in the chest and breast area Weight Dosing Weight: 149.1 kg (01/02/25) Medications Medications (28) Active Scheduled: (17) brexpiprazole 1 mg tablet 1 mg 1 tab(s), Oral, qDay colestipol 1 gm tablet 1 gram(s) 1 tab(s), Oral, BID dicyclomine 10 mg capsule 10 mg 1 cap(s), Oral, QID enoxaparin 40 mg/ 0.4mL syringe 40 mg 0.4 mL, Subcutaneous, qDay famotidine 40 mg tablet 40 mg 1 tab(s), Oral, qHS guaifenesin 600 mg ER 600 mg 1 tab(s), Oral, BID levothyroxine 50 mcg tablet 50 mcg 1 tab(s), Oral, qDay loratadine 10 mg Tablet 10 mg 1 tab(s), Oral, qDay metoprolol tartrate 25 mg tablet 25 mg 1 tab(s), Oral, BID montelukast 10 mg Tablet 10 mg 1 tab(s), Oral, qDay Nicoderm patch REMOVAL 1 EA, Miscellaneous, q24h nicotine 21 mg/24 hr ER patch 21 mg 1 patch(es), Transdermal, q24h oxybutynin 5 mg Tablet 5 mg 1 tab(s), Oral, BID pantoprazole 40 mg EC tablet 40 mg 1 tab(s), Oral, BID pregabalin 75 mg capsule 75 mg 1 cap(s), Oral, TID QUEtiapine 100 mg tablet 100 mg 1 tab(s), Oral, qHS sertraline 25 mg tablet 25 mg 1 tab(s), Oral, qDay Continuous: (0) PRN: (11) acetaminophen 325 mg Tablet 650 mg 2 tab(s), Oral, q4h acetaminophen-HYDROcodone 325-5 mg tablet 1 tab(s), Oral, q4h acetaminophen-HYDROcodone 325-5 mg tablet 2 tab(s), Oral, q4h albuterol - ipratropium 2.5 mg-0.5 mg/3 mL Inhal Lauren UD 3 mL, Inhalation, q4hRT benztropine 0.5 mg tablet 0.5 mg 1 tab(s), Oral, BID dextrose 50% Solution Disp syringe 50 mL 25 gram(s) 50 mL, IV Push, AsDirected HYDROmorphone 0.5 mg/0.5 mL syringe 0.25 mg 0.25 mL, IV Push, q3h hydroxyzine hcl 25 mg tablet 25 mg 1 tab(s), Oral, TID methocarbamol 750 mg Tablet 750 mg 1 tab(s), Oral, TID ondansetron 2 mg/ 1 mL 2 mL INJ 4 mg 2 mL, IV Push, q4h polyethylene glycol 3350 - UD packet 17 gram(s) 15 mL, Oral, qDay Lab Results 01/04 06:21 WBC: 11.3 H Hgb: 9.3 L Hct: 29.4 L Platelet: 264 Neutrophil %: 62.5 Glucose Level: 99 Sodium Level: 140 Potassium Level: 4.0 BUN: 14.0 Creatinine Lvl (s): 0.58 01/03 14:23 Protime: 11.6 PT International Ratio: 1.0 EKG No qualifying data available. Assessment/Plan Allergic rhinitis Arthritis of both knees Bipolar disorder Fibromyalgia Patient developed hematoma in the right breast which she later on involve the left breast as well This was attributed to a bout of coughing and sneezing Patient was taking Plavix started by cardiology She did not have any coronary artery stents PT and PTT were normal Plavix was held. Hemoglobin was stable now No other areas of bleeding 01/04 06:21 WBC: 11.3 H Hgb: 9.3 L Hct: 29.4 L Platelet: 264 No previous history of bleeding. Continue monitoring CBC Patient's questions were answered. All the data was reviewed [id number] Digitally Signed by JENNY LUZ MD on 01/04/2025 11:45 PM [id number] Hematology Consult note Date of Service 01/03/2025 Reason for Consultation Nontraumatic ecchymosis History of Present Illness This is a 49-year-old female with a past medical history significant for hypertension paroxysmal atrial fibrillation, hyperlipidemia, COPD, and neuropathy. She presented to [facility] for management of severe lumbar stenosis. Due to the acute on chronic back pain the patient was sent to [facility] for evaluation from an orthospine and neurosurgery team due to the findings from her MRI lumbar spine. The patient was also found to have a large area of ecchymosis under her breast andupper abdomen that expanded to her back. She underwent a CT thorax for these findings that demonstrated a right breast and chest wall hematoma.. On exam this morning Mitchell was sitting up comfortably in bed. She states she has been having a strong productive cough with green sputum. She reports that the bruising on her right breast that radiates to her upper abdomen and her back appeared on Monday. She states that there was no bruise on Monday of this week however she also endorses she has not had any falls or trauma to the area. She reports that the bruise is very painful. She denies any shortness of breath or chest pain. She reports she has been smoking about a pack per day since the age of 14, she denies any alcohol or illicit druguse. She reports that her maternal grandmother had lung cancer and her mother had liver cancer. Review of Systems Review of systems in negative unless noted in the above HPI. Physical Exam Vitals and Measurements T: 36.6 C (Oral) TMIN: 36.1 C (Oral) TMAX: 36.6 C (Oral) HR: 79 RR: 18 BP: 104/68 SpO2: 100% HT: 157.5 cm WT: 149.1 kg BMI: 60.11 General: No apparent distress. Neurological: Alert and oriented x3. Grossly intact without focal deficit. Cardiovascular: S1 and S2 noted. No extra-audible heart tones. Respiratory: Bilaterally clear breath sounds with no crepitation or wheeze. Abdominal: Soft, nontender and nondistended. No guarding. Bowel sounds present. Extremities: No edema. Adequate peripheral circulation. Skin: warm and dry Psychological: appropriate mood and affect Weight Dosing Weight: 149.1 kg (01/02/25) Lab Results 01/03 00:26 WBC: 14.0 H Hgb: 9.4 L Hct: 28.9 L Platelet: 272 Neutrophil %: 63.6 Glucose Level: 99 Sodium Level: 140 Potassium Level: 4.2 BUN: 16.0 Creatinine Lvl (s): 0.61 Imaging Results and Diagnostics (01/01/2025 11:[address] Thorax w/ Contrast) IMPRESSION: Large deep right breast/chest wall hematoma. Prominent adjacent induration could be inflammatory or represent contusion. No definite acute rib fracture is visible on this exam. (01/01/2025 11:[address] Thorax w/ Contrast) Additionally, there is a large lobulated hyperdense lesion in the region of the deep right breast, and this is incompletely visible due to size. It is at least 10.7 x 8.6 cm in size. [1] Assessment/Plan Nontraumatic ecchymosis: This is a 49-year-old female with a past medical history significant for hypertension paroxysmal atrial fibrillation, hyperlipidemia, COPD, and neuropathy. She presented to [facility] for management of severe lumbar stenosis. Due to the acute on chronic back pain the patient was sent to [facility] for evaluation from an orthospine and neurosurgery team due to the findings from her MRI lumbar spine. The hematology team was consulted due to a large area of ecchymosis under the patient's breast and upper abdomen expanding to her back with no history of trauma. The patient underwent a CT thorax that demonstrated a right breast and chest wall hematoma 01/01/2025. Of note the patient is on Plavix. The admitting physician is is concerned for possible bleeding diathesis. 01/01/2025 11:[address] Thorax w/ Contrast IMPRESSION: Large deep right breast/chest wall hematoma. Prominent adjacent induration could be inflammatory or represent contusion. There is a large lobulated hyperdense lesion in the region of the deep right breast, and this is incompletely visible due to size. It is at least 10.7 x 8.6 cm in size. Anemia: CBC 01/03/25 00:26 01/02/25 05:52 01/01/25 11:20 Hct 28.9 % L 27.2 % L 30.7 % L Hgb 9.4 G/dL L 8.8 G/dL L 10.0 G/dL L MCH 27.7 pg 27.8 pg 27.7 pg MCHC 32.4 G/dL 32.5 G/dL 32.5 G/dL MCV 85.7 fL 85.6 fL 85.4 fL MPV 8.8 fL 8.9 fL 8.6 fL Platelet 272 10^3/mcL 233 10^3/mcL 273 10^3/mcL RBC 3.38 10^6/mcL L 3.17 10^6/mcL L 3.60 10^6/mcL L RDW 17.1 % H 16.6 % H 16.6 % H WBC 14.0 10^3/mcL H 12.8 10^3/mcL H 16.3 10^3/mcL H Upon chart review there are no past hemoglobin levels for anemia comparison. Oncology plan: We will ask the general surgery team for further evaluation of the deep breast mass seen on the CT thorax and for further guidance regarding imaging and biopsy. Due to the patient being on an anticoagulant her PT/APTT would be variable. We will assess a fibrinogen level. The assessment and plan were discussed with Dr. Sanchez. Please see addendum for further hematology/oncology input and plan of care. Problem List/Past Medical History Ongoing Angina at rest Anxiety Arthritis of both knees Arthritis of facet joint of lumbar spine Bipolar depression Bladder dysfunction Bladder incontinence Cellulitis Chronic obstructive pulmonary disease (COPD) Chronic pain Coughing Depression DVT (deep venous thrombosis) Dyslipidemia Essential hypertension Fibromyalgia Gastric ulcer Gastritis GERD (gastroesophageal reflux disease) Hematoma History of atrial fibrillation Hypothyroid IBS (irritable bowel syndrome) Lumbar stenosis Morbid obesity Neuropathy Osteoarthritis of knees, bilateral Osteochondroma of femur Overactive bladder Pulmonary hypertension Sciatica Weakness Procedure/Surgical History Cervical fusion syndrome: 07/19/16 Cellulitis Tonsillectomy and adenoidectomy section Medications albuterol 2.5 mg/3 mL (0.083%) inhalation solution, 2.5 mg= 3 mL, Inhalation, q4h, PRN Azo-Standard, See Instructions, Unable to obtain benztropine 0.5 mg oral tablet, 0.5 mg= 1 tab(s), Oral, BID, PRN CeleBREX 100 mg oral capsule, 100 mg= 1 cap(s), Oral, qDay cetirizine 10 mg oral tablet, 10 mg= 1 tab(s), Oral, qDay, 1 refills Colestid 1 g oral tablet, 1 gram(s)= 1 tab(s), Oral, BID Dextrose 50% IV Push, 25 gram(s)= 50 mL, IV Push, AsDirected, PRN dicyclomine 10 mg oral capsule, 10 mg= 1 cap(s), Oral, QID Dilaudid, 0.25 mg= 0.25 mL, IV Push, q3h, PRN DuoNeb, 3 mL, Inhalation, q4hRT, PRN famotidine 40 mg oral tablet, 40 mg= 1 tab(s), Oral, qHS Flovent HFA 110 mcg/inh inhalation aerosol, 220 mcg= 2 inh, Inhalation, BID, 6 refills Glucosamine Chondroitin Advanced oral tablet, 2 tab(s), Oral, qDay, Unable to obtain hydrOXYzine hydrochloride 25 mg oral tablet, 25 mg= 1 tab(s), Oral, TID, PRN levothyroxine 50 mcg (0.05 mg) oral tablet, 50 mcg= 1 tab(s), Oral, qDay methocarbamol 750 mg oral tablet, 750 mg= 1 tab(s), Oral, TID, PRN, 2 refills metoprolol tartrate 25 mg oral tablet, 25 mg= 1 tab(s), Oral, BID montelukast 10 mg oral tablet, 10 mg= 1 tab(s), Oral, qDay Multivitamin, 1 tab(s), Oral, Daily, Not taking oxybutynin 5 mg oral tablet, 5 mg= 1 tab(s), Oral, BID pantoprazole 40 mg oral enteric coated tablet, 40 mg= 1 tab(s), Oral, BID, 3 refills Pepto Bismol Liquicaps 262 mg oral capsule, 524 mg= 2 cap(s), Oral, q30min Plavix 75 mg oral tablet, 75 mg= 1 tab(s), Oral, qDay pregabalin 75 mg oral capsule, 75 mg= 1 cap(s), Oral, TID, 2 refills QUEtiapine 50 mg oral tablet, 100 mg= 2 tab(s), Oral, qHS, 1 refills Rexulti 1 mg oral tablet, 1 mg= 1 tab(s), Oral, qDay sertraline 25 mg oral tablet, 25 mg= 1 tab(s), Oral, qDay Tylenol, 650 mg, Oral, qDay, PRN Tylenol, 650 mg= 2 tab(s), Oral, q4h, PRN Ventolin HFA MDI (90 mcg/inh) inhalation aerosol, 2 puff(s), Inhalation, q4h, PRN, 1 refills Vitamin D3, 20 mcg= 2 tab(s), Oral, Daily, Not taking Voltaren 1% topical gel, 4 gram(s), Topical, QID, PRN, 5 refills Zofran, 4 mg= 2 mL, IV Push, q4h, PRN Allergies Vicodin Zanaflex ciprofloxacin codeine cyproheptadine Hives ibuprofen morphine Flushed naproxen Itching penicillin Family History Asthma: Sister. Dementia: Father. Diabetes: Father and Grandparent. Heart disease: Grandparent and Grandparent. Liver cancer: Mother. Health Status Family Member(s) Family Member(s) Relationship: Mother, Age: 59 Years Social History Smoking Status - 01/17/2018 Current every day smoker Alcohol - Denies Alcohol Use, 04/25/2017 Use: Never., 02/21/2019 Home/Environment Living situation: Home with assistance. Safe place to go: Yes. Financial concerns: No. Primary CareGiver: self. Lives In: Mobile home. Current Home Treatments Nebulizer treatments. Marital Status: Unmarried., 01/01/2025 Nutrition/Health Caffeine intake amount: Coffee 2-3 cups daily; pop 2 of the 20oz daily., 07/23/2024 Sexual - No Risk, 08/10/2018 Substance Abuse - Denies Substance Abuse, 04/25/2017 Use: Never., 02/21/2019 Tobacco - High Risk, 08/10/2018 Nicotine Use: 5-9 cigarettes (between 1/4 to 1/2 pack)/day in last 30 days. Type: Cigarettes., 07/23/2024 [1] CT Thorax w/ Contrast; MAR TREVIZO MD 01/01/2025 11:43 EDT Digitally Signed by SHEILA BLANCAS on 01/03/2025 10:16 AM [id number] Surgery Consult note Date of Service 01/03/2025 Reason for Consultation Right breast hematoma with concern for a deep breast mass Referring Physician JUAN Carranza History of Present Illness This is a split shared visit between myself and Dr. Lion This patient is a 49-year-old female with a past medical history significant for bipolar disorder, DVT, atrial fibrillation, Plavix use, chronic pain, COPD, GERD, morbid obesity, osteoarthritis, anxiety, and fibromyalgia who presented to the [facility] emergency department on 01/01/2025 with complaints of low back pain with radiation of pain down her legs. She was evaluated in the [facility] emergency department on 12/25 and 12/28 due to ongoing pain and at that time she was diagnosed with a narrowing of the canal and foramina in the lower lumbar region. It was recommended that sheundergo an MRI for further evaluation. Due to progressively worsening symptoms that she presented to the [facility] emergency department on 01/01/2025. A CT scan of the thorax was obtained in the emergency department secondary to incidental findings of a large chest wall hematoma. She was noted to have a large deep right breast/chest wall hematoma with concern a large lobulated hypodense lesion in the region of the right deep breast per the report. She was admitted to [facility] for further evaluation. She underwent an MRI of the lumbar spine that showed bilateral facet joint cyst of L3-L4 resulting in severe canal stenosis per the report. She was transferred to [facility] for evaluation by orthospine/the neuro spine service. She was transferred to [facility] and was admitted to the regular floor on 01/02/2025. Consultation was placed to the hematology/oncology service given her nontraumatic ecchymosis to her her chest, the neurosurgical service evaluated her regarding the canal stenosis and the general surgery service was asked to evaluate the patient regarding the CT thorax findings. On examination, she was seen sitting upright in the chair. She did not appear toxic or in any acutedistress. She had a large hematoma spanning across her chest. She denied any traumatic event. She stated that on 12/30/2024 she had a bad coughing spell and then shortly after noticed the bruising to her chest. The right upper breast was noted to be firm. She denied any significant tenderness. Review of Systems All other pertinent positives and negatives are present in the HPI. All other systems are reviewed as negative unless otherwise previously mentioned. Physical Exam Vitals and Measurements T: 36.6 C (Oral) TMIN: 36.1 C (Oral) TMAX: 36.6 C (Oral) HR: 72 (Apical) RR: 16 BP: 106/73 SpO2: 96% HT: 157.5 cm WT: 149.1 kg BMI: 60.11 Weight Dosing Weight: 149.1 kg (01/02/25) General: Awake, alert and oriented x4. In no apparent distress. Able to answer questions appropriately and speak in full sentences. Sitting upright in the chair. HEENT: Sclera anicteric. Heart: S1 and S2 present. Lungs/Chest: Chest rise symmetrical. Respirations unlabored. Bilateral breast/chest hematoma. Rightupper breast firmness noted. Abdomen: Obese. Nondistended. No rigidity or guarding noted. Extremities: Freely moving. Psychiatric: Calm and cooperative. Lab Results 01/03 00:26 WBC: 14.0 H Hgb: 9.4 L Hct: 28.9 L Platelet: 272 Neutrophil %: 63.6 Glucose Level: 99 Sodium Level: 140 Potassium Level: 4.2 BUN: 16.0 Creatinine Lvl (s): 0.61 Imaging Results and Diagnostics (01/01/2025 11:[address] Thorax w/ Contrast) IMPRESSION: Large deep right breast/chest wall hematoma. Prominent adjacent induration could be inflammatory or represent contusion. No definite acute rib fracture is visible on this exam. [1] (01/01/2025 17:16 EDT MRI Spine Lumbar w/o Contrast) IMPRESSION: Bilateral facet joint cyst L3-L4 resulting in severe canal stenosis. [2] Assessment/Plan Allergic rhinitis Arthritis of both knees Bipolar disorder Fibromyalgia This patient is a 49-year-old female, on Plavix, who presented to [facility] on 01/02/2025 forfurther workup of severe canal stenosis seen on MRI while she was admitted to the [facility] and for evaluation from the neurosurgical service. The hematology/general surgery services were also asked to evaluate the patient regarding a large bilateral chest hematoma on CT scan imaging of the thorax. There was concern for a lobulated hypodense lesion in the right deep breast. On examination, the patient was seen sitting upright in the chair. She did not appear toxic or in any acute distress. She was noted to have a large hematoma to her bilateral chest and the right upperbreast was noted to be firm. She denied any traumatic injuries and stated that she had a bad coughing spell on 12/30/2024. Plan: Concern for chest hematoma and questionable lesion to the right deep breast This is likely related to the hematoma. Discussed with the patient that she would benefit from outpatient follow-up for reevaluation. If there is still concern for a lesion/mass, we will complete further diagnostic imaging as an outpatient. From the general surgery standpoint, the patient may have her Plavix resumed at the discretion of the primary medical team as her hemoglobin has remained stable. She voiced understanding and was in agreement with this plan The case has been discussed with Dr. Lion and at this time the general surgery service will sign off. Please call if we can be of further assistance. Problem List/Past Medical History Ongoing Angina at rest Anxiety Arthritis of both knees Arthritis of facet joint of lumbar spine Bipolar depression Bladder dysfunction Bladder incontinence Cellulitis Chronic obstructive pulmonary disease (COPD) Chronic pain Coughing Depression DVT (deep venous thrombosis) Dyslipidemia Essential hypertension Fibromyalgia Gastric ulcer Gastritis GERD (gastroesophageal reflux disease) Hematoma History of atrial fibrillation Hypothyroid IBS (irritable bowel syndrome) Lumbar stenosis Morbid obesity Neuropathy Osteoarthritis of knees, bilateral Osteochondroma of femur Overactive bladder Pulmonary hypertension Sciatica Weakness Procedure/Surgical History Cervical fusion syndrome: 07/19/16 Cellulitis section Tonsillectomy and adenoidectomy Medications Inpatient benztropine, 0.5 mg= 1 tab(s), Oral, BID, PRN Colestid 1 g oral tablet, 1 gram(s)= 1 tab(s), Oral, BID Dextrose 50% IV Push, 25 gram(s)= 50 mL, IV Push, AsDirected, PRN dicyclomine, 10 mg= 1 cap(s), Oral, QID Dilaudid, 0.25 mg= 0.25 mL, IV Push, q3h, PRN DuoNeb, 3 mL, Inhalation, q4hRT, PRN famotidine, 40 mg= 1 tab(s), Oral, qHS hydrOXYzine hydrochloride 25 mg oral tablet, 25 mg= 1 tab(s), Oral, TID, PRN levothyroxine, 50 mcg= 1 tab(s), Oral, qDay loratadine, 10 mg= 1 tab(s), Oral, qDay methocarbamol, 750 mg= 1 tab(s), Oral, TID, PRN metoprolol tartrate 25 mg oral tablet, 25 mg= 1 tab(s), Oral, BID montelukast, 10 mg= 1 tab(s), Oral, qDay Nicoderm C-Q 21 mg/24 hr transdermal film, extended release, 21 mg= 1 patch(es), Transdermal, q24h nicotine (Nicoderm Patch REMOVAL), 1 EA, Miscellaneous, q24h oxybutynin 5 mg oral tablet, 5 mg= 1 tab(s), Oral, BID pantoprazole, 40 mg= 1 tab(s), Oral, BID Pharmacy See ORDER COMMENTS, [facility], Miscellaneous, qDay pregabalin 75 mg oral capsule, 75 mg= 1 cap(s), Oral, TID QUEtiapine, 100 mg= 1 tab(s), Oral, qHS Rexulti, 1 mg= 1 tab(s), Oral, qDay sertraline, 25 mg= 1 tab(s), Oral, qDay Tylenol, 650 mg= 2 tab(s), Oral, q4h, PRN Zofran, 4 mg= 2 mL, IV Push, q4h, PRN Home albuterol 2.5 mg/3 mL (0.083%) inhalation solution, 2.5 mg= 3 mL, Inhalation, q4h, PRN Azo-Standard, See Instructions, Unable to obtain benztropine 0.5 mg oral tablet, 0.5 mg= 1 tab(s), Oral, BID, PRN CeleBREX 100 mg oral capsule, 100 mg= 1 cap(s), Oral, qDay cetirizine 10 mg oral tablet, 10 mg= 1 tab(s), Oral, qDay, 1 refills Colestid 1 g oral tablet, 1 gram(s)= 1 tab(s), Oral, BID dicyclomine 10 mg oral capsule, 10 mg= 1 cap(s), Oral, QID famotidine 40 mg oral tablet, 40 mg= 1 tab(s), Oral, qHS Flovent HFA 110 mcg/inh inhalation aerosol, 220 mcg= 2 inh, Inhalation, BID, 6 refills Glucosamine Chondroitin Advanced oral tablet, 2 tab(s), Oral, qDay, Unable to obtain hydrOXYzine hydrochloride 25 mg oral tablet, 25 mg= 1 tab(s), Oral, TID, PRN levothyroxine 50 mcg (0.05 mg) oral tablet, 50 mcg= 1 tab(s), Oral, qDay methocarbamol 750 mg oral tablet, 750 mg= 1 tab(s), Oral, TID, PRN, 2 refills metoprolol tartrate 25 mg oral tablet, 25 mg= 1 tab(s), Oral, BID montelukast 10 mg oral tablet, 10 mg= 1 tab(s), Oral, qDay Multivitamin, 1 tab(s), Oral, Daily, Not taking oxybutynin 5 mg oral tablet, 5 mg= 1 tab(s), Oral, BID pantoprazole 40 mg oral enteric coated tablet, 40 mg= 1 tab(s), Oral, BID, 3 refills Pepto Bismol Liquicaps 262 mg oral capsule, 524 mg= 2 cap(s), Oral, q30min Plavix 75 mg oral tablet, 75 mg= 1 tab(s), Oral, qDay pregabalin 75 mg oral capsule, 75 mg= 1 cap(s), Oral, TID, 2 refills QUEtiapine 50 mg oral tablet, 100 mg= 2 tab(s), Oral, qHS, 1 refills Rexulti 1 mg oral tablet, 1 mg= 1 tab(s), Oral, qDay sertraline 25 mg oral tablet, 25 mg= 1 tab(s), Oral, qDay Tylenol, 650 mg, Oral, qDay, PRN Ventolin HFA MDI (90 mcg/inh) inhalation aerosol, 2 puff(s), Inhalation, q4h, PRN, 1 refills Vitamin D3, 20 mcg= 2 tab(s), Oral, Daily, Not taking Voltaren 1% topical gel, 4 gram(s), Topical, QID, PRN, 5 refills Allergies Vicodin Zanaflex ciprofloxacin codeine cyproheptadine Hives ibuprofen morphine Flushed naproxen Itching penicillin Social History Smoking Status - 01/17/2018 Current every day smoker Alcohol - Denies Alcohol Use, 04/25/2017 Use: Never., 02/21/2019 Home/Environment Living situation: Home with assistance. Safe place to go: Yes. Financial concerns: No. Primary CareGiver: self. Lives In: Mobile home. Current Home Treatments Nebulizer treatments. Marital Status: Unmarried., 01/01/2025 Nutrition/Health Caffeine intake amount: Coffee 2-3 cups daily; pop 2 of the 20oz daily., 07/23/2024 Sexual - No Risk, 08/10/2018 Substance Abuse - Denies Substance Abuse, 04/25/2017 Use: Never., 02/21/2019 Tobacco - High Risk, 08/10/2018 Nicotine Use: 5-9 cigarettes (between 1/4 to 1/2 pack)/day in last 30 days. Type: Cigarettes., 07/23/2024 Family History Asthma: Sister. Dementia: Father. Diabetes: Father and Grandparent. Heart disease: Grandparent and Grandparent. Liver cancer: Mother. Health Status Family Member(s) Family Member(s) Relationship: Mother, Age: 59 Years Immunizations pneumococcal 23-valent vaccine(Pneumovax: 0 unknown unit (05/10/17) pneumococcal 23-valent vaccine(Pneumovax: 0 unknown unit (09/04/14) tetanus/diphth/pertuss (Tdap) adult/adol: 0 unknown unit (03/29/18) tetanus/diphth/pertuss (Tdap) adult/adol: 0 unknown unit (06/22/15) [1] CT Thorax w/ Contrast; MAR TREVIZO MD 01/01/2025 11:43 EDT [2] MRI Spine Lumbar w/o Contrast; ANGELA FRANKLIN MD 01/01/2025 17:16 EDT Digitally Signed by DESMOND GARCES on 01/03/2025 11:36 AM [id number] Surgery Consult note Date of Service 01/03/2025 Reason for Consultation Right breast hematoma with concern for a deep breast mass Referring Physician JUAN Carranza History of Present Illness This is a split shared visit between myself and Dr. Lion This patient is a 49-year-old female with a past medical history significant for bipolar disorder, DVT, atrial fibrillation, Plavix use, chronic pain, COPD, GERD, morbid obesity, osteoarthritis, anxiety, and fibromyalgia who presented to the [facility] emergency department on 01/01/2025 with complaints of low back pain with radiation of pain down her legs. She was evaluated in the [facility] emergency department on 12/25 and 12/28 due to ongoing pain and at that time she was diagnosed with a narrowing of the canal and foramina in the lower lumbar region. It was recommended that sheundergo an MRI for further evaluation. Due to progressively worsening symptoms that she presented to the [facility] emergency department on 01/01/2025. A CT scan of the thorax was obtained in the emergency department secondary to incidental findings of a large chest wall hematoma. She was noted to have a large deep right breast/chest wall hematoma with concern a large lobulated hypodense lesion in the region of the right deep breast per the report. She was admitted to [facility] for further evaluation. She underwent an MRI of the lumbar spine that showed bilateral facet joint cyst of L3-L4 resulting in severe canal stenosis per the report. She was transferred to [facility] for evaluation by orthospine/the neuro spine service. She was transferred to [facility] and was admitted to the regular floor on 01/02/2025. Consultation was placed to the hematology/oncology service given her nontraumatic ecchymosis to her her chest, the neurosurgical service evaluated her regarding the canal stenosis and the general surgery service was asked to evaluate the patient regarding the CT thorax findings. On examination, she was seen sitting upright in the chair. She did not appear toxic or in any acutedistress. She had a large hematoma spanning across her chest. She denied any traumatic event. She stated that on 12/30/2024 she had a bad coughing spell and then shortly after noticed the bruising to her chest. The right upper breast was noted to be firm. She denied any significant tenderness. Review of Systems All other pertinent positives and negatives are present in the HPI. All other systems are reviewed as negative unless otherwise previously mentioned. Physical Exam Vitals and Measurements T: 36.6 C (Oral) TMIN: 36.1 C (Oral) TMAX: 36.6 C (Oral) HR: 72 (Apical) RR: 16 BP: 106/73 SpO2: 96% HT: 157.5 cm WT: 149.1 kg BMI: 60.11 Weight Dosing Weight: 149.1 kg (01/02/25) General: Awake, alert and oriented x4. In no apparent distress. Able to answer questions appropriately and speak in full sentences. Sitting upright in the chair. HEENT: Sclera anicteric. Heart: S1 and S2 present. Lungs/Chest: Chest rise symmetrical. Respirations unlabored. Bilateral breast/chest hematoma. Rightupper breast firmness noted. Abdomen: Obese. Nondistended. No rigidity or guarding noted. Extremities: Freely moving. Psychiatric: Calm and cooperative. Lab Results 01/03 00:26 WBC: 14.0 H Hgb: 9.4 L Hct: 28.9 L Platelet: 272 Neutrophil %: 63.6 Glucose Level: 99 Sodium Level: 140 Potassium Level: 4.2 BUN: 16.0 Creatinine Lvl (s): 0.61 Imaging Results and Diagnostics (01/01/2025 11:[address] Thorax w/ Contrast) IMPRESSION: Large deep right breast/chest wall hematoma. Prominent adjacent induration could be inflammatory or represent contusion. No definite acute rib fracture is visible on this exam. [1] (01/01/2025 17:16 EDT MRI Spine Lumbar w/o Contrast) IMPRESSION: Bilateral facet joint cyst L3-L4 resulting in severe canal stenosis. [2] Assessment/Plan Allergic rhinitis Arthritis of both knees Bipolar disorder Fibromyalgia This patient is a 49-year-old female, on Plavix, who presented to [facility] on 01/02/2025 forfurther workup of severe canal stenosis seen on MRI while she was admitted to the [facility] and for evaluation from the neurosurgical service. The hematology/general surgery services were also asked to evaluate the patient regarding a large bilateral chest hematoma on CT scan imaging of the thorax. There was concern for a lobulated hypodense lesion in the right deep breast. On examination, the patient was seen sitting upright in the chair. She did not appear toxic or in any acute distress. She was noted to have a large hematoma to her bilateral chest and the right upperbreast was noted to be firm. She denied any traumatic injuries and stated that she had a bad coughing spell on 12/30/2024. Plan: Concern for chest hematoma and questionable lesion to the right deep breast This is likely related to the hematoma. Discussed with the patient that she would benefit from outpatient follow-up for reevaluation. If there is still concern for a lesion/mass, we will complete further diagnostic imaging as an outpatient. From the general surgery standpoint, the patient may have her Plavix resumed at the discretion of the primary medical team as her hemoglobin has remained stable. She voiced understanding and was in agreement with this plan The case has been discussed with Dr. Lion and at this time the general surgery service will sign off. Please call if we can be of further assistance. Problem List/Past Medical History Ongoing Angina at rest Anxiety Arthritis of both knees Arthritis of facet joint of lumbar spine Bipolar depression Bladder dysfunction Bladder incontinence Cellulitis Chronic obstructive pulmonary disease (COPD) Chronic pain Coughing Depression DVT (deep venous thrombosis) Dyslipidemia Essential hypertension Fibromyalgia Gastric ulcer Gastritis GERD (gastroesophageal reflux disease) Hematoma History of atrial fibrillation Hypothyroid IBS (irritable bowel syndrome) Lumbar stenosis Morbid obesity Neuropathy Osteoarthritis of knees, bilateral Osteochondroma of femur Overactive bladder Pulmonary hypertension Sciatica Weakness Procedure/Surgical History Cervical fusion syndrome: 07/19/16 Cellulitis section Tonsillectomy and adenoidectomy Medications Inpatient benztropine, 0.5 mg= 1 tab(s), Oral, BID, PRN Colestid 1 g oral tablet, 1 gram(s)= 1 tab(s), Oral, BID Dextrose 50% IV Push, 25 gram(s)= 50 mL, IV Push, AsDirected, PRN dicyclomine, 10 mg= 1 cap(s), Oral, QID Dilaudid, 0.25 mg= 0.25 mL, IV Push, q3h, PRN DuoNeb, 3 mL, Inhalation, q4hRT, PRN famotidine, 40 mg= 1 tab(s), Oral, qHS hydrOXYzine hydrochloride 25 mg oral tablet, 25 mg= 1 tab(s), Oral, TID, PRN levothyroxine, 50 mcg= 1 tab(s), Oral, qDay loratadine, 10 mg= 1 tab(s), Oral, qDay methocarbamol, 750 mg= 1 tab(s), Oral, TID, PRN metoprolol tartrate 25 mg oral tablet, 25 mg= 1 tab(s), Oral, BID montelukast, 10 mg= 1 tab(s), Oral, qDay Nicoderm C-Q 21 mg/24 hr transdermal film, extended release, 21 mg= 1 patch(es), Transdermal, q24h nicotine (Nicoderm Patch REMOVAL), 1 EA, Miscellaneous, q24h oxybutynin 5 mg oral tablet, 5 mg= 1 tab(s), Oral, BID pantoprazole, 40 mg= 1 tab(s), Oral, BID Pharmacy See ORDER COMMENTS, [facility], Miscellaneous, qDay pregabalin 75 mg oral capsule, 75 mg= 1 cap(s), Oral, TID QUEtiapine, 100 mg= 1 tab(s), Oral, qHS Rexulti, 1 mg= 1 tab(s), Oral, qDay sertraline, 25 mg= 1 tab(s), Oral, qDay Tylenol, 650 mg= 2 tab(s), Oral, q4h, PRN Zofran, 4 mg= 2 mL, IV Push, q4h, PRN Home albuterol 2.5 mg/3 mL (0.083%) inhalation solution, 2.5 mg= 3 mL, Inhalation, q4h, PRN Azo-Standard, See Instructions, Unable to obtain benztropine 0.5 mg oral tablet, 0.5 mg= 1 tab(s), Oral, BID, PRN CeleBREX 100 mg oral capsule, 100 mg= 1 cap(s), Oral, qDay cetirizine 10 mg oral tablet, 10 mg= 1 tab(s), Oral, qDay, 1 refills Colestid 1 g oral tablet, 1 gram(s)= 1 tab(s), Oral, BID dicyclomine 10 mg oral capsule, 10 mg= 1 cap(s), Oral, QID famotidine 40 mg oral tablet, 40 mg= 1 tab(s), Oral, qHS Flovent HFA 110 mcg/inh inhalation aerosol, 220 mcg= 2 inh, Inhalation, BID, 6 refills Glucosamine Chondroitin Advanced oral tablet, 2 tab(s), Oral, qDay, Unable to obtain hydrOXYzine hydrochloride 25 mg oral tablet, 25 mg= 1 tab(s), Oral, TID, PRN levothyroxine 50 mcg (0.05 mg) oral tablet, 50 mcg= 1 tab(s), Oral, qDay methocarbamol 750 mg oral tablet, 750 mg= 1 tab(s), Oral, TID, PRN, 2 refills metoprolol tartrate 25 mg oral tablet, 25 mg= 1 tab(s), Oral, BID montelukast 10 mg oral tablet, 10 mg= 1 tab(s), Oral, qDay Multivitamin, 1 tab(s), Oral, Daily, Not taking oxybutynin 5 mg oral tablet, 5 mg= 1 tab(s), Oral, BID pantoprazole 40 mg oral enteric coated tablet, 40 mg= 1 tab(s), Oral, BID, 3 refills Pepto Bismol Liquicaps 262 mg oral capsule, 524 mg= 2 cap(s), Oral, q30min Plavix 75 mg oral tablet, 75 mg= 1 tab(s), Oral, qDay pregabalin 75 mg oral capsule, 75 mg= 1 cap(s), Oral, TID, 2 refills QUEtiapine 50 mg oral tablet, 100 mg= 2 tab(s), Oral, qHS, 1 refills Rexulti 1 mg oral tablet, 1 mg= 1 tab(s), Oral, qDay sertraline 25 mg oral tablet, 25 mg= 1 tab(s), Oral, qDay Tylenol, 650 mg, Oral, qDay, PRN Ventolin HFA MDI (90 mcg/inh) inhalation aerosol, 2 puff(s), Inhalation, q4h, PRN, 1 refills Vitamin D3, 20 mcg= 2 tab(s), Oral, Daily, Not taking Voltaren 1% topical gel, 4 gram(s), Topical, QID, PRN, 5 refills Allergies Vicodin Zanaflex ciprofloxacin codeine cyproheptadine Hives ibuprofen morphine Flushed naproxen Itching penicillin Social History Smoking Status - 01/17/2018 Current every day smoker Alcohol - Denies Alcohol Use, 04/25/2017 Use: Never., 02/21/2019 Home/Environment Living situation: Home with assistance. Safe place to go: Yes. Financial concerns: No. Primary CareGiver: self. Lives In: Mobile home. Current Home Treatments Nebulizer treatments. Marital Status: Unmarried., 01/01/2025 Nutrition/Health Caffeine intake amount: Coffee 2-3 cups daily; pop 2 of the 20oz daily., 07/23/2024 Sexual - No Risk, 08/10/2018 Substance Abuse - Denies Substance Abuse, 04/25/2017 Use: Never., 02/21/2019 Tobacco - High Risk, 08/10/2018 Nicotine Use: 5-9 cigarettes (between 1/4 to 1/2 pack)/day in last 30 days. Type: Cigarettes., 07/23/2024 Family History Asthma: Sister. Dementia: Father. Diabetes: Father and Grandparent. Heart disease: Grandparent and Grandparent. Liver cancer: Mother. Health Status Family Member(s) Family Member(s) Relationship: Mother, Age: 59 Years Immunizations pneumococcal 23-valent vaccine(Pneumovax: 0 unknown unit (05/10/17) pneumococcal 23-valent vaccine(Pneumovax: 0 unknown unit (09/04/14) tetanus/diphth/pertuss (Tdap) adult/adol: 0 unknown unit (03/29/18) tetanus/diphth/pertuss (Tdap) adult/adol: 0 unknown unit (06/22/15) [1] CT Thorax w/ Contrast; MAR TREIVZO MD 01/01/2025 11:43 EDT [2] MRI Spine Lumbar w/o Contrast; ANGELA FRANKLIN MD 01/01/2025 17:16 EDT Digitally Signed by DESMOND GARCES on 01/03/2025 11:36 AM [id number] Neurological surgery Consult note Date of Service 01/03/2025 Reason for Consultation Back and leg pain with lumbar stenosis Referring Physician Dr. Coppola History of Present Illness This is a 49-year-old female, with past medical history of hypertension, hyperlipidemia, paroxysmalA-fib, COPD, morbid obesity, and neuropathy, who presented to [facility] for complaints of severe lumbar pain. She initially was seen in the emergency department on 01/01 for acute on chronic back pain. She was sent to [facility], for evaluation by neurosurgery after she had an MRI of the lumbar spine demonstrating L3-L4 bilateral facet joint cyst resulting in severe stenosis. Patient has chronic back pain, but pain has been much more significant recently. She states the pain starts in her back, and radiates down her hamstrings. The right leg peers to be more affected thanthe left. On exam, her bilateral dorsiflexion plantarflexion is strong. Her knee flexion is strong against resistance. Light touch sensation is intact. According to her history, she is only able to ambulate short distances at baseline and otherwise uses a motorized wheelchair for longer distances. She does take Plavix. Review of Systems Constitutional: No fever, chills, wt loss, wt gain, fatigue, or night sweats HEENT-no headaches, visual changes or hearing changes Cardiovascular: No chest pain, SOB, or or palpitations Respiratory: No cough, SOB, wheezing, or congestion. Gastrointestinal: No abd pain, nausea, vomiting, diarrhea, or loss of appetite. Genitourinary: No urinary frequency, burning, hematuria, or incontinence Musculoskeletal: Back pain. No weakness, cramps, joint pain or swelling Skin: No rashes, lesions, or sores Neurological: Back pain radiating into her bilateral hamstrings worse on the right than the left. No incoordination, numbness, or tingling. No gait disturbance. Psychiatric: No changes in mood. Physical Exam Vitals and Measurements T: 36.6 C (Oral) TMIN: 36.1 C (Oral) TMAX: 36.6 C (Oral) HR: 72 RR: 16 BP: 106/73 SpO2: 96% HT: 157.5 cm WT: 149.1 kg BMI: 60.11 Weight Dosing Weight: 149.1 kg (01/02/25) General Appearance: This patient is well-developed and well nourished, and appears stated age. No acute distress. Head: Normocephalic, Atraumatic EENT: Mucous membranes moist. No vision or hearing changes. Cardiac: S1 and S2 heard without murmur, rub, or gallop. Regular rate and rhythm. Lungs: Lungs clear. Respirations easy. No shortness of breath noted. Abdomen: BSP x 4. Abd soft, nontender, nondistended. Musculoskeletal: Moves all 4 ext without difficulty Extremities: Bilateral pedal pulses palpable. No edema noted Neurological: Skin: [place], warm, and dry. Psychiatric: Mood stable. Cooperative. Lab Results 01/03 00:26 WBC: 14.0 H Hgb: 9.4 L Hct: 28.9 L Platelet: 272 Neutrophil %: 63.6 Glucose Level: 99 Sodium Level: 140 Potassium Level: 4.2 BUN: 16.0 Creatinine Lvl (s): 0.61 Assessment/Plan Back pain and leg pain with lumbar stenosis secondary to L3-L4 bilateral synovial cyst resulting insevere stenosis: - Patient presented to the emergency department with intractable acute on chronic back pain with lower extremity pain. She does have chronic back pain, but has been more significant recently. 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 Patient was transferred to [facility] for evaluation by neurosurgery. - At baseline, patient is only able to mobilize short distances, and otherwise uses a motorized wheelchair for longer distances. - Dr. King has reviewed the MRI, and discussed with her, she would be a surgical candidate for excision of the synovial cyst for decompression. He also offered a nonsurgical option which would include epidural injections and medications. Was going to recommend gabapentin, but patient is already on Lyrica and tizanidine but patient is allergic to this medication. - Epidural injection was ordered, but patient is on Plavix. Reach out to IR, and patient will need to be off of Plavix for total of 10 days prior to receiving the epidural injection, therefore the order is canceled. - If patient wishes to proceed with more conservative treatment first, the epidural injection can be ordered as an outpatient and patient's Plavix can be placed on hold for 5 days. This will be rediscussed with her. Please see Dr. King's addendum for further details recommendations. Problem List/Past Medical History Ongoing Angina at rest Anxiety Arthritis of both knees Arthritis of facet joint of lumbar spine Bipolar depression Bladder dysfunction Bladder incontinence Cellulitis Chronic obstructive pulmonary disease (COPD) Chronic pain Coughing Depression DVT (deep venous thrombosis) Dyslipidemia Essential hypertension Fibromyalgia Gastric ulcer Gastritis GERD (gastroesophageal reflux disease) Hematoma History of atrial fibrillation Hypothyroid IBS (irritable bowel syndrome) Lumbar stenosis Morbid obesity Neuropathy Osteoarthritis of knees, bilateral Osteochondroma of femur Overactive bladder Pulmonary hypertension Sciatica Weakness Procedure/Surgical History Cervical fusion syndrome: 07/19/16 Cellulitis Tonsillectomy and adenoidectomy section Medications Inpatient benztropine, 0.5 mg= 1 tab(s), Oral, BID, PRN Colestid 1 g oral tablet, 1 gram(s)= 1 tab(s), Oral, BID Dextrose 50% IV Push, 25 gram(s)= 50 mL, IV Push, AsDirected, PRN dicyclomine, 10 mg= 1 cap(s), Oral, QID Dilaudid, 0.25 mg= 0.25 mL, IV Push, q3h, PRN DuoNeb, 3 mL, Inhalation, q4hRT, PRN famotidine, 40 mg= 1 tab(s), Oral, qHS gabapentin, 300 mg= 1 cap(s), Oral, TID hydrOXYzine hydrochloride 25 mg oral tablet, 25 mg= 1 tab(s), Oral, TID, PRN levothyroxine, 50 mcg= 1 tab(s), Oral, qDay loratadine, 10 mg= 1 tab(s), Oral, qDay methocarbamol, 750 mg= 1 tab(s), Oral, TID, PRN metoprolol tartrate 25 mg oral tablet, 25 mg= 1 tab(s), Oral, BID montelukast, 10 mg= 1 tab(s), Oral, qDay Nicoderm C-Q 21 mg/24 hr transdermal film, extended release, 21 mg= 1 patch(es), Transdermal, q24h nicotine (Nicoderm Patch REMOVAL), 1 EA, Miscellaneous, q24h nicotine (Nicoderm Patch REMOVAL), 1 EA, Miscellaneous, Once oxybutynin 5 mg oral tablet, 5 mg= 1 tab(s), Oral, BID pantoprazole, 40 mg= 1 tab(s), Oral, BID Pharmacy See ORDER COMMENTS, [facility], Miscellaneous, qDay pregabalin 75 mg oral capsule, 75 mg= 1 cap(s), Oral, TID QUEtiapine, 100 mg= 1 tab(s), Oral, qHS Rexulti, 1 mg= 1 tab(s), Oral, qDay sertraline, 25 mg= 1 tab(s), Oral, qDay Tylenol, 650 mg= 2 tab(s), Oral, q4h, PRN Zofran, 4 mg= 2 mL, IV Push, q4h, PRN Home albuterol 2.5 mg/3 mL (0.083%) inhalation solution, 2.5 mg= 3 mL, Inhalation, q4h, PRN Azo-Standard, See Instructions, Unable to obtain benztropine 0.5 mg oral tablet, 0.5 mg= 1 tab(s), Oral, BID, PRN CeleBREX 100 mg oral capsule, 100 mg= 1 cap(s), Oral, qDay cetirizine 10 mg oral tablet, 10 mg= 1 tab(s), Oral, qDay, 1 refills Colestid 1 g oral tablet, 1 gram(s)= 1 tab(s), Oral, BID dicyclomine 10 mg oral capsule, 10 mg= 1 cap(s), Oral, QID famotidine 40 mg oral tablet, 40 mg= 1 tab(s), Oral, qHS Flovent HFA 110 mcg/inh inhalation aerosol, 220 mcg= 2 inh, Inhalation, BID, 6 refills Glucosamine Chondroitin Advanced oral tablet, 2 tab(s), Oral, qDay, Unable to obtain hydrOXYzine hydrochloride 25 mg oral tablet, 25 mg= 1 tab(s), Oral, TID, PRN levothyroxine 50 mcg (0.05 mg) oral tablet, 50 mcg= 1 tab(s), Oral, qDay methocarbamol 750 mg oral tablet, 750 mg= 1 tab(s), Oral, TID, PRN, 2 refills metoprolol tartrate 25 mg oral tablet, 25 mg= 1 tab(s), Oral, BID montelukast 10 mg oral tablet, 10 mg= 1 tab(s), Oral, qDay Multivitamin, 1 tab(s), Oral, Daily, Not taking oxybutynin 5 mg oral tablet, 5 mg= 1 tab(s), Oral, BID pantoprazole 40 mg oral enteric coated tablet, 40 mg= 1 tab(s), Oral, BID, 3 refills Pepto Bismol Liquicaps 262 mg oral capsule, 524 mg= 2 cap(s), Oral, q30min Plavix 75 mg oral tablet, 75 mg= 1 tab(s), Oral, qDay pregabalin 75 mg oral capsule, 75 mg= 1 cap(s), Oral, TID, 2 refills QUEtiapine 50 mg oral tablet, 100 mg= 2 tab(s), Oral, qHS, 1 refills Rexulti 1 mg oral tablet, 1 mg= 1 tab(s), Oral, qDay sertraline 25 mg oral tablet, 25 mg= 1 tab(s), Oral, qDay Tylenol, 650 mg, Oral, qDay, PRN Ventolin HFA MDI (90 mcg/inh) inhalation aerosol, 2 puff(s), Inhalation, q4h, PRN, 1 refills Vitamin D3, 20 mcg= 2 tab(s), Oral, Daily, Not taking Voltaren 1% topical gel, 4 gram(s), Topical, QID, PRN, 5 refills Allergies Vicodin Zanaflex ciprofloxacin codeine cyproheptadine Hives ibuprofen morphine Flushed naproxen Itching penicillin Social History Smoking Status - 01/17/2018 Current every day smoker Alcohol - Denies Alcohol Use, 04/25/2017 Use: Never., 02/21/2019 Home/Environment Living situation: Home with assistance. Safe place to go: Yes. Financial concerns: No. Primary CareGiver: self. Lives In: Mobile home. Current Home Treatments Nebulizer treatments. Marital Status: Unmarried., 01/01/2025 Nutrition/Health Caffeine intake amount: Coffee 2-3 cups daily; pop 2 of the 20oz daily., 07/23/2024 Sexual - No Risk, 08/10/2018 Substance Abuse - Denies Substance Abuse, 04/25/2017 Use: Never., 02/21/2019 Tobacco - High Risk, 08/10/2018 Nicotine Use: 5-9 cigarettes (between 1/4 to 1/2 pack)/day in last 30 days. Type: Cigarettes., 07/23/2024 Family History Asthma: Sister. Dementia: Father. Diabetes: Father and Grandparent. Heart disease: Grandparent and Grandparent. Liver cancer: Mother. Health Status Family Member(s) Family Member(s) Relationship: Mother, Age: 59 Years Immunizations pneumococcal 23-valent vaccine(Pneumovax: 0 unknown unit (05/10/17) pneumococcal 23-valent vaccine(Pneumovax: 0 unknown unit (09/04/14) tetanus/diphth/pertuss (Tdap) adult/adol: 0 unknown unit (03/29/18) tetanus/diphth/pertuss (Tdap) adult/adol: 0 unknown unit (06/22/15) Digitally Signed by JUAN ENRIQUE on 01/03/2025 09:59 AM [id number] Neurological surgery Consult note Date of Service 01/03/2025 Reason for Consultation Back and leg pain with lumbar stenosis Referring Physician Dr. Coppola History of Present Illness This is a 49-year-old female, with past medical history of hypertension, hyperlipidemia, paroxysmalA-fib, COPD, morbid obesity, and neuropathy, who presented to [facility] for complaints of severe lumbar pain. She initially was seen in the emergency department on 01/01 for acute on chronic back pain. She was sent to [facility], for evaluation by neurosurgery after she had an MRI of the lumbar spine demonstrating L3-L4 bilateral facet joint cyst resulting in severe stenosis. Patient has chronic back pain, but pain has been much more significant recently. She states the pain starts in her back, and radiates down her hamstrings. The right leg peers to be more affected thanthe left. On exam, her bilateral dorsiflexion plantarflexion is strong. Her knee flexion is strong against resistance. Light touch sensation is intact. According to her history, she is only able to ambulate short distances at baseline and otherwise uses a motorized wheelchair for longer distances. She does take Plavix. Review of Systems Constitutional: No fever, chills, wt loss, wt gain, fatigue, or night sweats HEENT-no headaches, visual changes or hearing changes Cardiovascular: No chest pain, SOB, or or palpitations Respiratory: No cough, SOB, wheezing, or congestion. Gastrointestinal: No abd pain, nausea, vomiting, diarrhea, or loss of appetite. Genitourinary: No urinary frequency, burning, hematuria, or incontinence Musculoskeletal: Back pain. No weakness, cramps, joint pain or swelling Skin: No rashes, lesions, or sores Neurological: Back pain radiating into her bilateral hamstrings worse on the right than the left. No incoordination, numbness, or tingling. No gait disturbance. Psychiatric: No changes in mood. Physical Exam Vitals and Measurements T: 36.6 C (Oral) TMIN: 36.1 C (Oral) TMAX: 36.6 C (Oral) HR: 72 RR: 16 BP: 106/73 SpO2: 96% HT: 157.5 cm WT: 149.1 kg BMI: 60.11 Weight Dosing Weight: 149.1 kg (01/02/25) General Appearance: This patient is well-developed and well nourished, and appears stated age. No acute distress. Head: Normocephalic, Atraumatic EENT: Mucous membranes moist. No vision or hearing changes. Cardiac: S1 and S2 heard without murmur, rub, or gallop. Regular rate and rhythm. Lungs: Lungs clear. Respirations easy. No shortness of breath noted. Abdomen: BSP x 4. Abd soft, nontender, nondistended. Musculoskeletal: Moves all 4 ext without difficulty Extremities: Bilateral pedal pulses palpable. No edema noted Neurological: Skin: [place], warm, and dry. Psychiatric: Mood stable. Cooperative. Lab Results 01/03 00:26 WBC: 14.0 H Hgb: 9.4 L Hct: 28.9 L Platelet: 272 Neutrophil %: 63.6 Glucose Level: 99 Sodium Level: 140 Potassium Level: 4.2 BUN: 16.0 Creatinine Lvl (s): 0.61 Assessment/Plan Back pain and leg pain with lumbar stenosis secondary to L3-L4 bilateral synovial cyst resulting insevere stenosis: - Patient presented to the emergency department with intractable acute on chronic back pain with lower extremity pain. She does have chronic back pain, but has been more significant recently. 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 Patient was transferred to [facility] for evaluation by neurosurgery. - At baseline, patient is only able to mobilize short distances, and otherwise uses a motorized wheelchair for longer distances. - Dr. King has reviewed the MRI, and discussed with her, she would be a surgical candidate for excision of the synovial cyst for decompression. He also offered a nonsurgical option which would include epidural injections and medications. Was going to recommend gabapentin, but patient is already on Lyrica and tizanidine but patient is allergic to this medication. - Epidural injection was ordered, but patient is on Plavix. Reach out to IR, and patient will need to be off of Plavix for total of 10 days prior to receiving the epidural injection, therefore the order is canceled. - If patient wishes to proceed with more conservative treatment first, the epidural injection can be ordered as an outpatient and patient's Plavix can be placed on hold for 5 days. This will be rediscussed with her. Please see Dr. King's addendum for further details recommendations. Problem List/Past Medical History Ongoing Angina at rest Anxiety Arthritis of both knees Arthritis of facet joint of lumbar spine Bipolar depression Bladder dysfunction Bladder incontinence Cellulitis Chronic obstructive pulmonary disease (COPD) Chronic pain Coughing Depression DVT (deep venous thrombosis) Dyslipidemia Essential hypertension Fibromyalgia Gastric ulcer Gastritis GERD (gastroesophageal reflux disease) Hematoma History of atrial fibrillation Hypothyroid IBS (irritable bowel syndrome) Lumbar stenosis Morbid obesity Neuropathy Osteoarthritis of knees, bilateral Osteochondroma of femur Overactive bladder Pulmonary hypertension Sciatica Weakness Procedure/Surgical History Cervical fusion syndrome: 07/19/16 Cellulitis Tonsillectomy and adenoidectomy section Medications Inpatient benztropine, 0.5 mg= 1 tab(s), Oral, BID, PRN Colestid 1 g oral tablet, 1 gram(s)= 1 tab(s), Oral, BID Dextrose 50% IV Push, 25 gram(s)= 50 mL, IV Push, AsDirected, PRN dicyclomine, 10 mg= 1 cap(s), Oral, QID Dilaudid, 0.25 mg= 0.25 mL, IV Push, q3h, PRN DuoNeb, 3 mL, Inhalation, q4hRT, PRN famotidine, 40 mg= 1 tab(s), Oral, qHS gabapentin, 300 mg= 1 cap(s), Oral, TID hydrOXYzine hydrochloride 25 mg oral tablet, 25 mg= 1 tab(s), Oral, TID, PRN levothyroxine, 50 mcg= 1 tab(s), Oral, qDay loratadine, 10 mg= 1 tab(s), Oral, qDay methocarbamol, 750 mg= 1 tab(s), Oral, TID, PRN metoprolol tartrate 25 mg oral tablet, 25 mg= 1 tab(s), Oral, BID montelukast, 10 mg= 1 tab(s), Oral, qDay Nicoderm C-Q 21 mg/24 hr transdermal film, extended release, 21 mg= 1 patch(es), Transdermal, q24h nicotine (Nicoderm Patch REMOVAL), 1 EA, Miscellaneous, q24h nicotine (Nicoderm Patch REMOVAL), 1 EA, Miscellaneous, Once oxybutynin 5 mg oral tablet, 5 mg= 1 tab(s), Oral, BID pantoprazole, 40 mg= 1 tab(s), Oral, BID Pharmacy See ORDER COMMENTS, [facility], Miscellaneous, qDay pregabalin 75 mg oral capsule, 75 mg= 1 cap(s), Oral, TID QUEtiapine, 100 mg= 1 tab(s), Oral, qHS Rexulti, 1 mg= 1 tab(s), Oral, qDay sertraline, 25 mg= 1 tab(s), Oral, qDay Tylenol, 650 mg= 2 tab(s), Oral, q4h, PRN Zofran, 4 mg= 2 mL, IV Push, q4h, PRN Home albuterol 2.5 mg/3 mL (0.083%) inhalation solution, 2.5 mg= 3 mL, Inhalation, q4h, PRN Azo-Standard, See Instructions, Unable to obtain benztropine 0.5 mg oral tablet, 0.5 mg= 1 tab(s), Oral, BID, PRN CeleBREX 100 mg oral capsule, 100 mg= 1 cap(s), Oral, qDay cetirizine 10 mg oral tablet, 10 mg= 1 tab(s), Oral, qDay, 1 refills Colestid 1 g oral tablet, 1 gram(s)= 1 tab(s), Oral, BID dicyclomine 10 mg oral capsule, 10 mg= 1 cap(s), Oral, QID famotidine 40 mg oral tablet, 40 mg= 1 tab(s), Oral, qHS Flovent HFA 110 mcg/inh inhalation aerosol, 220 mcg= 2 inh, Inhalation, BID, 6 refills Glucosamine Chondroitin Advanced oral tablet, 2 tab(s), Oral, qDay, Unable to obtain hydrOXYzine hydrochloride 25 mg oral tablet, 25 mg= 1 tab(s), Oral, TID, PRN levothyroxine 50 mcg (0.05 mg) oral tablet, 50 mcg= 1 tab(s), Oral, qDay methocarbamol 750 mg oral tablet, 750 mg= 1 tab(s), Oral, TID, PRN, 2 refills metoprolol tartrate 25 mg oral tablet, 25 mg= 1 tab(s), Oral, BID montelukast 10 mg oral tablet, 10 mg= 1 tab(s), Oral, qDay Multivitamin, 1 tab(s), Oral, Daily, Not taking oxybutynin 5 mg oral tablet, 5 mg= 1 tab(s), Oral, BID pantoprazole 40 mg oral enteric coated tablet, 40 mg= 1 tab(s), Oral, BID, 3 refills Pepto Bismol Liquicaps 262 mg oral capsule, 524 mg= 2 cap(s), Oral, q30min Plavix 75 mg oral tablet, 75 mg= 1 tab(s), Oral, qDay pregabalin 75 mg oral capsule, 75 mg= 1 cap(s), Oral, TID, 2 refills QUEtiapine 50 mg oral tablet, 100 mg= 2 tab(s), Oral, qHS, 1 refills Rexulti 1 mg oral tablet, 1 mg= 1 tab(s), Oral, qDay sertraline 25 mg oral tablet, 25 mg= 1 tab(s), Oral, qDay Tylenol, 650 mg, Oral, qDay, PRN Ventolin HFA MDI (90 mcg/inh) inhalation aerosol, 2 puff(s), Inhalation, q4h, PRN, 1 refills Vitamin D3, 20 mcg= 2 tab(s), Oral, Daily, Not taking Voltaren 1% topical gel, 4 gram(s), Topical, QID, PRN, 5 refills Allergies Vicodin Zanaflex ciprofloxacin codeine cyproheptadine Hives ibuprofen morphine Flushed naproxen Itching penicillin Social History Smoking Status - 01/17/2018 Current every day smoker Alcohol - Denies Alcohol Use, 04/25/2017 Use: Never., 02/21/2019 Home/Environment Living situation: Home with assistance. Safe place to go: Yes. Financial concerns: No. Primary CareGiver: self. Lives In: Mobile home. Current Home Treatments Nebulizer treatments. Marital Status: Unmarried., 01/01/2025 Nutrition/Health Caffeine intake amount: Coffee 2-3 cups daily; pop 2 of the 20oz daily., 07/23/2024 Sexual - No Risk, 08/10/2018 Substance Abuse - Denies Substance Abuse, 04/25/2017 Use: Never., 02/21/2019 Tobacco - High Risk, 08/10/2018 Nicotine Use: 5-9 cigarettes (between 1/4 to 1/2 pack)/day in last 30 days. Type: Cigarettes., 07/23/2024 Family History Asthma: Sister. Dementia: Father. Diabetes: Father and Grandparent. Heart disease: Grandparent and Grandparent. Liver cancer: Mother. Health Status Family Member(s) Family Member(s) Relationship: Mother, Age: 59 Years Immunizations pneumococcal 23-valent vaccine(Pneumovax: 0 unknown unit (05/10/17) pneumococcal 23-valent vaccine(Pneumovax: 0 unknown unit (09/04/14) tetanus/diphth/pertuss (Tdap) adult/adol: 0 unknown unit (03/29/18) tetanus/diphth/pertuss (Tdap) adult/adol: 0 unknown unit (06/22/15) Digitally Signed by JUAN ENRIQUE on 01/03/2025 09:59 AM [id number] Neurological surgery Consult note Date of Service 01/03/2025 Reason for Consultation Back and leg pain with lumbar stenosis Referring Physician Dr. Coppola History of Present Illness This is a 49-year-old female, with past medical history of hypertension, hyperlipidemia, paroxysmalA-fib, COPD, morbid obesity, and neuropathy, who presented to [facility] for complaints of severe lumbar pain. She initially was seen in the emergency department on 01/01 for acute on chronic back pain. She was sent to [facility], for evaluation by neurosurgery after she had an MRI of the lumbar spine demonstrating L3-L4 bilateral facet joint cyst resulting in severe stenosis. Patient has chronic back pain, but pain has been much more significant recently. She states the pain starts in her back, and radiates down her hamstrings. The right leg peers to be more affected thanthe left. On exam, her bilateral dorsiflexion plantarflexion is strong. Her knee flexion is strong against resistance. Light touch sensation is intact. According to her history, she is only able to ambulate short distances at baseline and otherwise uses a motorized wheelchair for longer distances. She does take Plavix. Review of Systems Constitutional: No fever, chills, wt loss, wt gain, fatigue, or night sweats HEENT-no headaches, visual changes or hearing changes Cardiovascular: No chest pain, SOB, or or palpitations Respiratory: No cough, SOB, wheezing, or congestion. Gastrointestinal: No abd pain, nausea, vomiting, diarrhea, or loss of appetite. Genitourinary: No urinary frequency, burning, hematuria, or incontinence Musculoskeletal: Back pain. No weakness, cramps, joint pain or swelling Skin: No rashes, lesions, or sores Neurological: Back pain radiating into her bilateral hamstrings worse on the right than the left. No incoordination, numbness, or tingling. No gait disturbance. Psychiatric: No changes in mood. Physical Exam Vitals and Measurements T: 36.6 C (Oral) TMIN: 36.1 C (Oral) TMAX: 36.6 C (Oral) HR: 72 RR: 16 BP: 106/73 SpO2: 96% HT: 157.5 cm WT: 149.1 kg BMI: 60.11 Weight Dosing Weight: 149.1 kg (01/02/25) General Appearance: This patient is well-developed and well nourished, and appears stated age. No acute distress. Head: Normocephalic, Atraumatic EENT: Mucous membranes moist. No vision or hearing changes. Cardiac: S1 and S2 heard without murmur, rub, or gallop. Regular rate and rhythm. Lungs: Lungs clear. Respirations easy. No shortness of breath noted. Abdomen: BSP x 4. Abd soft, nontender, nondistended. Musculoskeletal: Moves all 4 ext without difficulty Extremities: Bilateral pedal pulses palpable. No edema noted Neurological: Skin: [place], warm, and dry. Psychiatric: Mood stable. Cooperative. Lab Results 01/03 00:26 WBC: 14.0 H Hgb: 9.4 L Hct: 28.9 L Platelet: 272 Neutrophil %: 63.6 Glucose Level: 99 Sodium Level: 140 Potassium Level: 4.2 BUN: 16.0 Creatinine Lvl (s): 0.61 Assessment/Plan Back pain and leg pain with lumbar stenosis secondary to L3-L4 bilateral synovial cyst resulting insevere stenosis: - Patient presented to the emergency department with intractable acute on chronic back pain with lower extremity pain. She does have chronic back pain, but has been more significant recently. 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 Patient was transferred to [facility] for evaluation by neurosurgery. - At baseline, patient is only able to mobilize short distances, and otherwise uses a motorized wheelchair for longer distances. - Dr. King has reviewed the MRI, and discussed with her, she would be a surgical candidate for excision of the synovial cyst for decompression. He also offered a nonsurgical option which would include epidural injections and medications. Was going to recommend gabapentin, but patient is already on Lyrica and tizanidine but patient is allergic to this medication. - Epidural injection was ordered, but patient is on Plavix. Reach out to IR, and patient will need to be off of Plavix for total of 10 days prior to receiving the epidural injection, therefore the order is canceled. - If patient wishes to proceed with more conservative treatment first, the epidural injection can be ordered as an outpatient and patient's Plavix can be placed on hold for 5 days. This will be rediscussed with her. Please see Dr. King's addendum for further details recommendations. Problem List/Past Medical History Ongoing Angina at rest Anxiety Arthritis of both knees Arthritis of facet joint of lumbar spine Bipolar depression Bladder dysfunction Bladder incontinence Cellulitis Chronic obstructive pulmonary disease (COPD) Chronic pain Coughing Depression DVT (deep venous thrombosis) Dyslipidemia Essential hypertension Fibromyalgia Gastric ulcer Gastritis GERD (gastroesophageal reflux disease) Hematoma History of atrial fibrillation Hypothyroid IBS (irritable bowel syndrome) Lumbar stenosis Morbid obesity Neuropathy Osteoarthritis of knees, bilateral Osteochondroma of femur Overactive bladder Pulmonary hypertension Sciatica Weakness Procedure/Surgical History Cervical fusion syndrome: 07/19/16 Cellulitis Tonsillectomy and adenoidectomy section Medications Inpatient benztropine, 0.5 mg= 1 tab(s), Oral, BID, PRN Colestid 1 g oral tablet, 1 gram(s)= 1 tab(s), Oral, BID Dextrose 50% IV Push, 25 gram(s)= 50 mL, IV Push, AsDirected, PRN dicyclomine, 10 mg= 1 cap(s), Oral, QID Dilaudid, 0.25 mg= 0.25 mL, IV Push, q3h, PRN DuoNeb, 3 mL, Inhalation, q4hRT, PRN famotidine, 40 mg= 1 tab(s), Oral, qHS gabapentin, 300 mg= 1 cap(s), Oral, TID hydrOXYzine hydrochloride 25 mg oral tablet, 25 mg= 1 tab(s), Oral, TID, PRN levothyroxine, 50 mcg= 1 tab(s), Oral, qDay loratadine, 10 mg= 1 tab(s), Oral, qDay methocarbamol, 750 mg= 1 tab(s), Oral, TID, PRN metoprolol tartrate 25 mg oral tablet, 25 mg= 1 tab(s), Oral, BID montelukast, 10 mg= 1 tab(s), Oral, qDay Nicoderm C-Q 21 mg/24 hr transdermal film, extended release, 21 mg= 1 patch(es), Transdermal, q24h nicotine (Nicoderm Patch REMOVAL), 1 EA, Miscellaneous, q24h nicotine (Nicoderm Patch REMOVAL), 1 EA, Miscellaneous, Once oxybutynin 5 mg oral tablet, 5 mg= 1 tab(s), Oral, BID pantoprazole, 40 mg= 1 tab(s), Oral, BID Pharmacy See ORDER COMMENTS, [facility], Miscellaneous, qDay pregabalin 75 mg oral capsule, 75 mg= 1 cap(s), Oral, TID QUEtiapine, 100 mg= 1 tab(s), Oral, qHS Rexulti, 1 mg= 1 tab(s), Oral, qDay sertraline, 25 mg= 1 tab(s), Oral, qDay Tylenol, 650 mg= 2 tab(s), Oral, q4h, PRN Zofran, 4 mg= 2 mL, IV Push, q4h, PRN Home albuterol 2.5 mg/3 mL (0.083%) inhalation solution, 2.5 mg= 3 mL, Inhalation, q4h, PRN Azo-Standard, See Instructions, Unable to obtain benztropine 0.5 mg oral tablet, 0.5 mg= 1 tab(s), Oral, BID, PRN CeleBREX 100 mg oral capsule, 100 mg= 1 cap(s), Oral, qDay cetirizine 10 mg oral tablet, 10 mg= 1 tab(s), Oral, qDay, 1 refills Colestid 1 g oral tablet, 1 gram(s)= 1 tab(s), Oral, BID dicyclomine 10 mg oral capsule, 10 mg= 1 cap(s), Oral, QID famotidine 40 mg oral tablet, 40 mg= 1 tab(s), Oral, qHS Flovent HFA 110 mcg/inh inhalation aerosol, 220 mcg= 2 inh, Inhalation, BID, 6 refills Glucosamine Chondroitin Advanced oral tablet, 2 tab(s), Oral, qDay, Unable to obtain hydrOXYzine hydrochloride 25 mg oral tablet, 25 mg= 1 tab(s), Oral, TID, PRN levothyroxine 50 mcg (0.05 mg) oral tablet, 50 mcg= 1 tab(s), Oral, qDay methocarbamol 750 mg oral tablet, 750 mg= 1 tab(s), Oral, TID, PRN, 2 refills metoprolol tartrate 25 mg oral tablet, 25 mg= 1 tab(s), Oral, BID montelukast 10 mg oral tablet, 10 mg= 1 tab(s), Oral, qDay Multivitamin, 1 tab(s), Oral, Daily, Not taking oxybutynin 5 mg oral tablet, 5 mg= 1 tab(s), Oral, BID pantoprazole 40 mg oral enteric coated tablet, 40 mg= 1 tab(s), Oral, BID, 3 refills Pepto Bismol Liquicaps 262 mg oral capsule, 524 mg= 2 cap(s), Oral, q30min Plavix 75 mg oral tablet, 75 mg= 1 tab(s), Oral, qDay pregabalin 75 mg oral capsule, 75 mg= 1 cap(s), Oral, TID, 2 refills QUEtiapine 50 mg oral tablet, 100 mg= 2 tab(s), Oral, qHS, 1 refills Rexulti 1 mg oral tablet, 1 mg= 1 tab(s), Oral, qDay sertraline 25 mg oral tablet, 25 mg= 1 tab(s), Oral, qDay Tylenol, 650 mg, Oral, qDay, PRN Ventolin HFA MDI (90 mcg/inh) inhalation aerosol, 2 puff(s), Inhalation, q4h, PRN, 1 refills Vitamin D3, 20 mcg= 2 tab(s), Oral, Daily, Not taking Voltaren 1% topical gel, 4 gram(s), Topical, QID, PRN, 5 refills Allergies Vicodin Zanaflex ciprofloxacin codeine cyproheptadine Hives ibuprofen morphine Flushed naproxen Itching penicillin Social History Smoking Status - 01/17/2018 Current every day smoker Alcohol - Denies Alcohol Use, 04/25/2017 Use: Never., 02/21/2019 Home/Environment Living situation: Home with assistance. Safe place to go: Yes. Financial concerns: No. Primary CareGiver: self. Lives In: Mobile home. Current Home Treatments Nebulizer treatments. Marital Status: Unmarried., 01/01/2025 Nutrition/Health Caffeine intake amount: Coffee 2-3 cups daily; pop 2 of the 20oz daily., 07/23/2024 Sexual - No Risk, 08/10/2018 Substance Abuse - Denies Substance Abuse, 04/25/2017 Use: Never., 02/21/2019 Tobacco - High Risk, 08/10/2018 Nicotine Use: 5-9 cigarettes (between 1/4 to 1/2 pack)/day in last 30 days. Type: Cigarettes., 07/23/2024 Family History Asthma: Sister. Dementia: Father. Diabetes: Father and Grandparent. Heart disease: Grandparent and Grandparent. Liver cancer: Mother. Health Status Family Member(s) Family Member(s) Relationship: Mother, Age: 59 Years Immunizations pneumococcal 23-valent vaccine(Pneumovax: 0 unknown unit (05/10/17) pneumococcal 23-valent vaccine(Pneumovax: 0 unknown unit (09/04/14) tetanus/diphth/pertuss (Tdap) adult/adol: 0 unknown unit (03/29/18) tetanus/diphth/pertuss (Tdap) adult/adol: 0 unknown unit (06/22/15) Digitally Signed by JUAN ENRIQUE on 01/03/2025 09:59 AM [id number] Note Reason for Consultation Admission From: Other: [facility], from home Consult Skin Team re: Pressure Staging - Ordered -- 01/03/25 0:08:58 EDT Skin Team Findings Vitals and Measurements T: 36.6 C (Oral) TMIN: 36.1 C (Oral) TMAX: 36.6 C (Oral) HR: 72 RR: 16 BP: 106/73 SpO2: 96% HT: 157.5 cm WT: 149.1 kg BMI: 60.11 Pressure Area Details ------Pressure Area------ ------Incision/Wound------ Gluteal cleft - Incision, Wound Distribution: Localized Gluteal cleft - Incision, Wound Dressing/Activity: Open to Air Gluteal cleft - Incision, Wound Surrounding Tissue: Erythema Gluteal cleft - Skin Abnormality Color: [place], Red Gluteal cleft - Skin Abnormality Type: Incontinence associated dermatitis Gluteal cleft - Wound Associated Pain: None Gluteal cleft - Wound Bed Description: Dermal, Other: denuded Assessments and Recommendations ------Assessments------ Current Skin/Wound Interventions: Hospital bed, Turn and reposition every 2 hours, Other: up in chair Present For Wound Observation: Nurse ------Recommendations------ Recommended Skin/Wound Interventions: Seat cushion, Barrier cream, Turn and reposition every 2 hours, Consult Vascular Physician, Other: zinc barrier cream Education prevention interventions, hard of hearing, reinforce as needed. Problem List/Past Medical History Ongoing Angina at rest Anxiety Arthritis of both knees Arthritis of facet joint of lumbar spine Bipolar depression Bladder dysfunction Bladder incontinence Cellulitis Chronic obstructive pulmonary disease (COPD) Chronic pain Coughing Depression DVT (deep venous thrombosis) Dyslipidemia Essential hypertension Fibromyalgia Gastric ulcer Gastritis GERD (gastroesophageal reflux disease) Hematoma History of atrial fibrillation Hypothyroid IBS (irritable bowel syndrome) Lumbar stenosis Morbid obesity Neuropathy Osteoarthritis of knees, bilateral Osteochondroma of femur Overactive bladder Pulmonary hypertension Sciatica Weakness Digitally Signed by Angela Estes RN, Skin Team on 01/03/2025 09:06 AM [id number] Hematology Consult note Date of Service 01/03/2025 Reason for Consultation Nontraumatic ecchymosis History of Present Illness This is a 49-year-old female with a past medical history significant for hypertension paroxysmal atrial fibrillation, hyperlipidemia, COPD, and neuropathy. She presented to [facility] for management of severe lumbar stenosis. Due to the acute on chronic back pain the patient was sent to [facility] for evaluation from an orthospine and neurosurgery team due to the findings from her MRI lumbar spine. The patient was also found to have a large area of ecchymosis under her breast andupper abdomen that expanded to her back. She underwent a CT thorax for these findings that demonstrated a right breast and chest wall hematoma.. On exam this morning Mitchell was sitting up comfortably in bed. She states she has been having a strong productive cough with green sputum. She reports that the bruising on her right breast that radiates to her upper abdomen and her back appeared on Monday. She states that there was no bruise on Monday of this week however she also endorses she has not had any falls or trauma to the area. She reports that the bruise is very painful. She denies any shortness of breath or chest pain. She reports she has been smoking about a pack per day since the age of 14, she denies any alcohol or illicit druguse. She reports that her maternal grandmother had lung cancer and her mother had liver cancer. Review of Systems Review of systems in negative unless noted in the above HPI. Physical Exam Vitals and Measurements T: 36.6 C (Oral) TMIN: 36.1 C (Oral) TMAX: 36.6 C (Oral) HR: 79 RR: 18 BP: 104/68 SpO2: 100% HT: 157.5 cm WT: 149.1 kg BMI: 60.11 General: No apparent distress. Neurological: Alert and oriented x3. Grossly intact without focal deficit. Cardiovascular: S1 and S2 noted. No extra-audible heart tones. Respiratory: Bilaterally clear breath sounds with no crepitation or wheeze. Abdominal: Soft, nontender and nondistended. No guarding. Bowel sounds present. Extremities: No edema. Adequate peripheral circulation. Skin: warm and dry Psychological: appropriate mood and affect Weight Dosing Weight: 149.1 kg (01/02/25) Lab Results 01/03 00:26 WBC: 14.0 H Hgb: 9.4 L Hct: 28.9 L Platelet: 272 Neutrophil %: 63.6 Glucose Level: 99 Sodium Level: 140 Potassium Level: 4.2 BUN: 16.0 Creatinine Lvl (s): 0.61 Imaging Results and Diagnostics (01/01/2025 11:[address] Thorax w/ Contrast) IMPRESSION: Large deep right breast/chest wall hematoma. Prominent adjacent induration could be inflammatory or represent contusion. No definite acute rib fracture is visible on this exam. (01/01/2025 11:[address] Thorax w/ Contrast) Additionally, there is a large lobulated hyperdense lesion in the region of the deep right breast, and this is incompletely visible due to size. It is at least 10.7 x 8.6 cm in size. [1] Assessment/Plan Nontraumatic ecchymosis: This is a 49-year-old female with a past medical history significant for hypertension paroxysmal atrial fibrillation, hyperlipidemia, COPD, and neuropathy. She presented to [facility] for management of severe lumbar stenosis. Due to the acute on chronic back pain the patient was sent to [facility] for evaluation from an orthospine and neurosurgery team due to the findings from her MRI lumbar spine. The hematology team was consulted due to a large area of ecchymosis under the patient's breast and upper abdomen expanding to her back with no history of trauma. The patient underwent a CT thorax that demonstrated a right breast and chest wall hematoma 01/01/2025. Of note the patient is on Plavix. The admitting physician is is concerned for possible bleeding diathesis. 01/01/2025 11:[address] Thorax w/ Contrast IMPRESSION: Large deep right breast/chest wall hematoma. Prominent adjacent induration could be inflammatory or represent contusion. There is a large lobulated hyperdense lesion in the region of the deep right breast, and this is incompletely visible due to size. It is at least 10.7 x 8.6 cm in size. Anemia: CBC 01/03/25 00:26 01/02/25 05:52 01/01/25 11:20 Hct 28.9 % L 27.2 % L 30.7 % L Hgb 9.4 G/dL L 8.8 G/dL L 10.0 G/dL L MCH 27.7 pg 27.8 pg 27.7 pg MCHC 32.4 G/dL 32.5 G/dL 32.5 G/dL MCV 85.7 fL 85.6 fL 85.4 fL MPV 8.8 fL 8.9 fL 8.6 fL Platelet 272 10^3/mcL 233 10^3/mcL 273 10^3/mcL RBC 3.38 10^6/mcL L 3.17 10^6/mcL L 3.60 10^6/mcL L RDW 17.1 % H 16.6 % H 16.6 % H WBC 14.0 10^3/mcL H 12.8 10^3/mcL H 16.3 10^3/mcL H Upon chart review there are no past hemoglobin levels for anemia comparison. Oncology plan: We will ask the general surgery team for further evaluation of the deep breast mass seen on the CT thorax and for further guidance regarding imaging and biopsy. Due to the patient being on an anticoagulant her PT/APTT would be variable. We will assess a fibrinogen level. The assessment and plan were discussed with Dr. Sanchez. Please see addendum for further hematology/oncology input and plan of care. Problem List/Past Medical History Ongoing Angina at rest Anxiety Arthritis of both knees Arthritis of facet joint of lumbar spine Bipolar depression Bladder dysfunction Bladder incontinence Cellulitis Chronic obstructive pulmonary disease (COPD) Chronic pain Coughing Depression DVT (deep venous thrombosis) Dyslipidemia Essential hypertension Fibromyalgia Gastric ulcer Gastritis GERD (gastroesophageal reflux disease) Hematoma History of atrial fibrillation Hypothyroid IBS (irritable bowel syndrome) Lumbar stenosis Morbid obesity Neuropathy Osteoarthritis of knees, bilateral Osteochondroma of femur Overactive bladder Pulmonary hypertension Sciatica Weakness Procedure/Surgical History Cervical fusion syndrome: 07/19/16 Cellulitis Tonsillectomy and adenoidectomy section Medications albuterol 2.5 mg/3 mL (0.083%) inhalation solution, 2.5 mg= 3 mL, Inhalation, q4h, PRN Azo-Standard, See Instructions, Unable to obtain benztropine 0.5 mg oral tablet, 0.5 mg= 1 tab(s), Oral, BID, PRN CeleBREX 100 mg oral capsule, 100 mg= 1 cap(s), Oral, qDay cetirizine 10 mg oral tablet, 10 mg= 1 tab(s), Oral, qDay, 1 refills Colestid 1 g oral tablet, 1 gram(s)= 1 tab(s), Oral, BID Dextrose 50% IV Push, 25 gram(s)= 50 mL, IV Push, AsDirected, PRN dicyclomine 10 mg oral capsule, 10 mg= 1 cap(s), Oral, QID Dilaudid, 0.25 mg= 0.25 mL, IV Push, q3h, PRN DuoNeb, 3 mL, Inhalation, q4hRT, PRN famotidine 40 mg oral tablet, 40 mg= 1 tab(s), Oral, qHS Flovent HFA 110 mcg/inh inhalation aerosol, 220 mcg= 2 inh, Inhalation, BID, 6 refills Glucosamine Chondroitin Advanced oral tablet, 2 tab(s), Oral, qDay, Unable to obtain hydrOXYzine hydrochloride 25 mg oral tablet, 25 mg= 1 tab(s), Oral, TID, PRN levothyroxine 50 mcg (0.05 mg) oral tablet, 50 mcg= 1 tab(s), Oral, qDay methocarbamol 750 mg oral tablet, 750 mg= 1 tab(s), Oral, TID, PRN, 2 refills metoprolol tartrate 25 mg oral tablet, 25 mg= 1 tab(s), Oral, BID montelukast 10 mg oral tablet, 10 mg= 1 tab(s), Oral, qDay Multivitamin, 1 tab(s), Oral, Daily, Not taking oxybutynin 5 mg oral tablet, 5 mg= 1 tab(s), Oral, BID pantoprazole 40 mg oral enteric coated tablet, 40 mg= 1 tab(s), Oral, BID, 3 refills Pepto Bismol Liquicaps 262 mg oral capsule, 524 mg= 2 cap(s), Oral, q30min Plavix 75 mg oral tablet, 75 mg= 1 tab(s), Oral, qDay pregabalin 75 mg oral capsule, 75 mg= 1 cap(s), Oral, TID, 2 refills QUEtiapine 50 mg oral tablet, 100 mg= 2 tab(s), Oral, qHS, 1 refills Rexulti 1 mg oral tablet, 1 mg= 1 tab(s), Oral, qDay sertraline 25 mg oral tablet, 25 mg= 1 tab(s), Oral, qDay Tylenol, 650 mg, Oral, qDay, PRN Tylenol, 650 mg= 2 tab(s), Oral, q4h, PRN Ventolin HFA MDI (90 mcg/inh) inhalation aerosol, 2 puff(s), Inhalation, q4h, PRN, 1 refills Vitamin D3, 20 mcg= 2 tab(s), Oral, Daily, Not taking Voltaren 1% topical gel, 4 gram(s), Topical, QID, PRN, 5 refills Zofran, 4 mg= 2 mL, IV Push, q4h, PRN Allergies Vicodin Zanaflex ciprofloxacin codeine cyproheptadine Hives ibuprofen morphine Flushed naproxen Itching penicillin Family History Asthma: Sister. Dementia: Father. Diabetes: Father and Grandparent. Heart disease: Grandparent and Grandparent. Liver cancer: Mother. Health Status Family Member(s) Family Member(s) Relationship: Mother, Age: 59 Years Social History Smoking Status - 01/17/2018 Current every day smoker Alcohol - Denies Alcohol Use, 04/25/2017 Use: Never., 02/21/2019 Home/Environment Living situation: Home with assistance. Safe place to go: Yes. Financial concerns: No. Primary CareGiver: self. Lives In: Mobile home. Current Home Treatments Nebulizer treatments. Marital Status: Unmarried., 01/01/2025 Nutrition/Health Caffeine intake amount: Coffee 2-3 cups daily; pop 2 of the 20oz daily., 07/23/2024 Sexual - No Risk, 08/10/2018 Substance Abuse - Denies Substance Abuse, 04/25/2017 Use: Never., 02/21/2019 Tobacco - High Risk, 08/10/2018 Nicotine Use: 5-9 cigarettes (between 1/4 to 1/2 pack)/day in last 30 days. Type: Cigarettes., 07/23/2024 [1] CT Thorax w/ Contrast; MAR TREVIZO MD 01/01/2025 11:43 EDT Digitally Signed by SHEILA BLANCAS APRN-PRODUCT DEVELOPMENT INTERN on 01/03/2025 10:16 AM [id number] History and physical note Date of Service January 02, 2025 Chief Complaint Back pain History of Present Illness This is a 49-year-old female with a past medical history significant for hypertension, hyperlipidemia, paroxysmal atrial fibrillation, morbid obesity, COPD, and neuropathy [facility]. See recent progress note from January 02 about transfer. Presented to the ED on January 01 for acute on chronic back pain. Sent to for further orthospine, neurosurgery evaluation given MRI lumbar spine findings of L3-L4 bilateral facet joint cyst resulting in severe stenosis. Additionally patient presented with a large area of ecchymoses under her breasts, upper abdomen expanding to her back. No history of trauma, patient does take Plavix. A CT thorax did demonstrate a right breast, chest wall hematoma on January 01. Recent pertinent labs, CBC with WBC of 14, Hgb of 9.4, CMP without significant derangement. Upon arrival to floor, patient denies any new or acute complaints. Vital signs are stable at the time of evaluation. Review of Systems Complete detailed review of systems obtained and all pertinent positives and negatives are noted inthe history of present illness. Physical Exam Vitals and Measurements HT: 157.5 cm WT: 149.1 kg BMI: 60.11 Weight Dosing Weight: 149.1 kg (01/02/25) Physical Examination General: No apparent distress. Alert and appropriate. HEENT: NCAT EOMI Neck: Supple. No appreciable elevation in JVP. Cardiovascular: S1 S2 normal. No extra-audible heart tones. Respiratory: Bilaterally clear breath sounds with no crepitation or wheeze. Abdominal: Soft, nontender and nonrigid. No guarding. Bowel sounds present. Extremities: No edema. Adequate peripheral circulation. Neurological: Grossly intact without focal deficit. Cerebellar function preserved. Skin: Widespread ecchymoses underneath bilateral breasts, upper abdomen into the flanks Lab Results No 36 Hour Lab Data Imaging Results and Diagnostics IMPRESSION: MRI lumbar spine, personally reviewed Bilateral facet joint cyst L3-L4 resulting in severe canal stenosis. IMPRESSION: CT thorax, reviewed Large deep right breast/chest wall hematoma. Prominent adjacent induration could be inflammatory or represent contusion. No definite acute rib fracture is visible on this exam. Assessment/Plan Severe lumbar stenosis secondary to facet joint cyst, L3-L4 Low back pain Chest wall hematoma, ecchymoses Paroxysmal atrial fibrillation COPD Hypertension Hyperlipidemia Morbid obesity The patient was admitted for management of severe lumbar back pain, requiring neurosurgery consultation and evaluation. In setting of demonstrated chest wall hematoma, widespread ecchymoses without known trauma will order hematology consult for possible bleeding diathesis. PT OT consult in place IV Dilaudid for pain control., IV Zofran for nausea control. CBC and BMP are ordered daily and replete electrolytes necessary. Continue patient's home chronic medications pending pharmacy verification. The labs, the imaging were personally reviewed in this case. The case was transferred under direction of my colleague. DVT prophylaxis: SCDs Patient is full code The patient will require 2 midnight stay for acute on chronic back pain in setting of severe lumbarstenosis, requiring neurosurgery evaluation and possible intervention. Patient requires workup of atraumatic chest hematoma, ecchymoses. Problem List/Past Medical History Ongoing Angina at rest Anxiety Arthritis of both knees Arthritis of facet joint of lumbar spine Bipolar depression Bladder dysfunction Bladder incontinence Cellulitis Chronic obstructive pulmonary disease (COPD) Chronic pain Coughing Depression DVT (deep venous thrombosis) Dyslipidemia Essential hypertension Fibromyalgia Gastric ulcer Gastritis GERD (gastroesophageal reflux disease) Hematoma History of atrial fibrillation Hypothyroid IBS (irritable bowel syndrome) Lumbar stenosis Morbid obesity Neuropathy Osteoarthritis of knees, bilateral Osteochondroma of femur Overactive bladder Pulmonary hypertension Sciatica Weakness Procedure/Surgical History Cervical fusion syndrome: 07/19/16 Cellulitis Tonsillectomy and adenoidectomy section Medications Home Medications (28) Active albuterol 2.5 mg/3 mL (0.083%) inhalation solution 2.5 mg = 3 mL, PRN, Inhalation, q4h Azo-Standard See Instructions benztropine 0.5 mg oral tablet 0.5 mg = 1 tab(s), PRN, Oral, BID CeleBREX 100 mg oral capsule 100 mg = 1 cap(s), Oral, qDay cetirizine 10 mg oral tablet 10 mg = 1 tab(s), Oral, qDay Colestid 1 g oral tablet 1 gram(s) = 1 tab(s), Oral, BID dicyclomine 10 mg oral capsule 10 mg = 1 cap(s), Oral, QID famotidine 40 mg oral tablet 40 mg = 1 tab(s), Oral, qHS Flovent HFA 110 mcg/inh inhalation aerosol 220 mcg = 2 inh, Inhalation, BID Glucosamine Chondroitin Advanced oral tablet 2 tab(s), Oral, qDay hydrOXYzine hydrochloride 25 mg oral tablet 25 mg = 1 tab(s), PRN, Oral, TID levothyroxine 50 mcg (0.05 mg) oral tablet 50 mcg = 1 tab(s), Oral, qDay methocarbamol 750 mg oral tablet 750 mg = 1 tab(s), PRN, Oral, TID metoprolol tartrate 25 mg oral tablet 25 mg = 1 tab(s), Oral, BID montelukast 10 mg oral tablet 10 mg = 1 tab(s), Oral, qDay Multivitamin 1 tab(s), Oral, Daily oxybutynin 5 mg oral tablet 5 mg = 1 tab(s), Oral, BID pantoprazole 40 mg oral enteric coated tablet 40 mg = 1 tab(s), Oral, BID Pepto Bismol Liquicaps 262 mg oral capsule 524 mg = 2 cap(s), Oral, q30min Plavix 75 mg oral tablet 75 mg = 1 tab(s), Oral, qDay pregabalin 75 mg oral capsule 75 mg = 1 cap(s), Oral, TID QUEtiapine 50 mg oral tablet 100 mg = 2 tab(s), Oral, qHS Rexulti 1 mg oral tablet 1 mg = 1 tab(s), Oral, qDay sertraline 25 mg oral tablet 25 mg = 1 tab(s), Oral, qDay Tylenol 650 mg, PRN, Oral, qDay Ventolin HFA MDI (90 mcg/inh) inhalation aerosol 2 puff(s), PRN, Inhalation, q4h Vitamin D3 20 mcg = 2 tab(s), Oral, Daily Voltaren 1% topical gel 4 gram(s), PRN, Topical, QID Allergies Vicodin Zanaflex ciprofloxacin codeine cyproheptadine Hives ibuprofen morphine Flushed naproxen Itching penicillin Social History Smoking Status - 01/17/2018 Current every day smoker Alcohol - Denies Alcohol Use, 04/25/2017 Use: Never., 02/21/2019 Home/Environment Living situation: Home with assistance. Safe place to go: Yes. Financial concerns: No. Primary CareGiver: self. Lives In: Mobile home. Current Home Treatments Nebulizer treatments. Marital Status: Unmarried., 01/01/2025 Nutrition/Health Caffeine intake amount: Coffee 2-3 cups daily; pop 2 of the 20oz daily., 07/23/2024 Sexual - No Risk, 08/10/2018 Substance Abuse - Denies Substance Abuse, 04/25/2017 Use: Never., 02/21/2019 Tobacco - High Risk, 08/10/2018 Nicotine Use: 5-9 cigarettes (between 1/4 to 1/2 pack)/day in last 30 days. Type: Cigarettes., 07/23/2024 Family History Asthma: Sister. Dementia: Father. Diabetes: Father and Grandparent. Heart disease: Grandparent and Grandparent. Liver cancer: Mother. Health Status Family Member(s) Family Member(s) Relationship: Mother, Age: 59 Years Immunizations pneumococcal 23-valent vaccine(Pneumovax: 0 unknown unit (05/10/17) pneumococcal 23-valent vaccine(Pneumovax: 0 unknown unit (09/04/14) tetanus/diphth/pertuss (Tdap) adult/adol: 0 unknown unit (03/29/18) tetanus/diphth/pertuss (Tdap) adult/adol: 0 unknown unit (06/22/15) Code Status Code Status - Ordered -- 01/02/25 23:30:00 EDT, Full Code, Constant Order Digitally Signed by HELLEN HULL DO on 01/03/2025 01:55 AM [id number] Evaluation + Plan noteExtracted from: Title:History and Physical Author:HELLEN HULL Date:01/02/25 Severe lumbar stenosis secon sarah to facet joint cyst, L3-L4 Low back pain Chest wall hematoma, ecchymoses Paroxysmal atrial fibrillation COPD Hypertension Hyperlipidemia Morbid obesity The patient was admitted for management of severe lumbar back pain, requiring neurosurgery consultation and evaluation. In setting of demonstrated chest wall hematoma, widespread ecchymoses without known trauma will order hematology consult for possible bleeding diathesis. PT OT consult in place IV Dilaudid for pain control., IV Zofran for nausea control. CBC and BMP are ordered daily and replete electrolytes necessary. Continue patient's home chronic medications pending pharmacy verification. The labs, the imaging were personally reviewed in this case. The case was transferred under direction of my colleague. DVT prophylaxis: SCDs Patient is full code The patient will require 2 midnight stay for acute on chronic back pain in setting of severe lumbar stenosis, requiring neurosurgery evaluation and possible intervention. Patient requires workup of atraumatic chest hematoma, ecchymoses. Future Appointments Appointment Date:01/23/2025 01:15:00 PM Scheduled Provider:REUBEN LION JR, MD Location:[facility] Appointment Type:[facility] Hospital Follow Up Future Scheduled Tests Laboratory* Thyroid Stimulating Hormone 06/23/24 * Complete Blood Count 06/23/24 * Lipid Profile 06/23/24 * Complete Metabolic Panel 06/23/24 [facility] 09-11-2024 Primary care Note Chief Complaint Sinus congestion/cough History of Present Illness The patient was seen today in her home due to issues with immobility and transportation. The patient initially wanted to be seen to have a wheelchair ordered. However upon arrival today, she states that someone gave her a wheelchair so she no longer needs an order for 1. However the patient is compl aining of sinus congestion and cough for about the last week. Was on a course of doxycycline at theend of March. States that she improved for about a week and then symptoms returned. She has been drinking lots of water. States she is not taking any medications for symptoms. She is a smoker. She denies shortness of breath. She denies fever. Review of Systems See pertinent positives and negatives in the HPI above. Physical Exam Vitals and Measurements T: 36 C (Temporal Artery) HR: 70 BP: 100/64 SpO2: 93% Oxygen Therapy: Room air GENERAL: Alert, oriented, well-groomed. No apparent distress. SKIN: Warm and dry. Nails without cyanosis. Normal turgor. No rash or petechiae. HEAD: Normocephalic/atraumatic. EENT: Eyes- Conjunctiva clear bilaterally. no periorbital edema/inflammation/or erythema. Normal EOMs. Ears-externally appear normal. No tragus sign. Nose- Nares with erythema and edema. Clear drainage. Moderate frontal and maxillary sinus tenderness noted. Throat- Oral mucosa pink, pharynx withouterythema. No exudates. LYMPH: Submandibular and anterior lymphadenopathy noted. No posterior cervical lymphadenopathy. CARDIAC: Regular rate, regular rhythm, no murmurs, rubs, gallops noted. RESPIRATORY: Thorax symmetrical with good expansion. Lungs resonant. Regular rate and depth; no distress, RIGHT lung clear, LEFT lung clear. Breath sounds normal. Social History Smoking Status - 01/17/2018 Current every day smoker Alcohol - Denies Alcohol Use, 04/25/2017 Use: Never., 02/21/2019 Home/Environment Primary Tariff Supervisor: self., 03/28/2024 Nutrition/Health Caffeine intake amount: Coffee, Tea and Carbonated beverages., 02/21/2019 Sexual - No Risk, 08/10/2018 Substance Abuse - Denies Substance Abuse, 04/25/2017 Use: Never., 02/21/2019 Tobacco - High Risk, 08/10/2018 Nicotine Use: 10 or more cigarettes (1/2 pack or more)/day in last 30 days. Type: Cigarettes., 03/28/2024 Family History Asthma: Sister. Dementia: Father. Diabetes: Father and Grandparent. Heart disease: Grandparent and Grandparent. Liver cancer: Mother. Health Status Family Member(s) Family Member(s) Relationship: Mother, Age: 59 Years Assessment/Plan 1. Acute bacterial sinusitis Acute problem: Pharmacologic manage needed Recurrent sinusitis. Previously treated with doxycycline. Will treat with cefdinir. Antibiotic sent to the pharmacy. Patient has a listed allergy to penicillin however upon further investigation herreaction is nausea. I feels reasonable to trial a third-generation cephalosporin in the absence of an anaphylactic or a type 1 hypersensitivity reaction to penicillin. Will also send the patient someMucinex to thin secretions. Encouraged continued hydration. If no improvement or worsening notify the office. The patient verbalized understanding and agreement with the plan. Orders: bacillus coagulans-calcium carbonate(Digestive Advantage Daily Probiotics oral capsule), 1 cap(s), Oral, qDay, 1 refills cefdinir(cefdinir 300 mg oral capsule), 300 mg= 1 cap(s), Oral, q12h guaiFENesin(Mucinex 600 mg oral tablet, extended release), 600 mg= 1 tab(s), Oral, q12h Patient instructed to call if any new/concerning or worsening of symptoms and to follow up as needed with either myself or their PCP if no improvement or worsening of condition. I have reviewed the information entered by staff including patient's medications, allergies, past medical history, family history, social history, nursing notes and vital signs. This note was generated using a voice recognition system. There may be incorrect words, spellings, and punctuation that were missed in checking this note before saving. 31 minutes of total time was spent on this patient encounter including obtaining or reviewing history obtained, performing exam and evaluation, counseling and education of patient, documenting in EHR. Problem List/Past Medical History Ongoing Angina at rest Anxiety Bipolar depression Cellulitis Chronic obstructive pulmonary disease (COPD) Coughing Depression DVT (deep venous thrombosis) Dyslipidemia Essential hypertension Gastric ulcer Gastritis GERD (gastroesophageal reflux disease) History of atrial fibrillation Hypothyroid IBS (irritable bowel syndrome) Morbid obesity Neuropathy Osteoarthritis of knees, bilateral Osteochondroma of femur Pulmonary hypertension Sciatica Procedure/Surgical History Cervical fusion syndrome: 07/19/16 Cellulitis section Tonsillectomy and adenoidectomy Allergies Vicodin Zanaflex acetaminophen Anaphylactic reaction celecoxib Swelling ciprofloxacin codeine cyproheptadine Hives ibuprofen morphine Flushed naproxen Itching penicillin Medications What How Much When Why Instructions Last Dose New cefdinir (cefdinir 300 mg oral capsule) 1 cap by mouth Every 12 hours Duration: 10 Days Pickup at [facility] New guaiFENesin (Mucinex 600 mg oral tablet, extended release) 1 tab(s) by mouth Every 12 hours Duration: 10 Days Pickup at [facility] Changed bacillus coagulans-calcium carbonate (Digestive Advantage Daily Probiotics oral capsule) 1 cap by mouth Once a day Duration: 30 Days Pickup at [facility] Unchanged albuterol (albuterol 5 mg/ mL (0.5%) inhalation solution) 0.5 Milliliter by inhalation Every 2 hours as needed for as needed for wheezing Unchanged benztropine (benztropine 0.5 mg oral tablet) 1 tab(s) by mouth Two (2) times a day Contact prescriber if questions or concerns Unchanged bismuth subsalicylate (Pepto Bismol Liquicaps 262 mg oral capsule) 2 cap by mouth Every 30 minutes not to exceed 8 capsules/ day Contact prescriber if questions or concerns Unchanged brexpiprazole (Rexulti 1 mg oral tablet) 1 tab(s) by mouth Once a day Duration: 30 Days Contact prescriber if questions or concerns Unchanged cetirizine (cetirizine 10 mg oral tablet) 1 tab(s) by mouth Once a day Contact prescriber if questions or concerns Unchanged cholecalciferol (Vitamin D3) 20 Microgram by mouth Every day Contact prescriber if questions or concerns Unchanged chondroitin/ glucosamine/ methylsulfonylmethane (Osteo Bi-Flex Advanced oral tablet) 1 tab(s) by mouth Every day Contact prescriber if questions or concerns Unchanged clopidogrel (Plavix 75 mg oral tablet) 1 tab(s) by mouth Once a day Contact prescriber if questions or concerns Unchanged colestipol (Colestid 1 g oral tablet) 1 tab(s) by mouth Two (2) times a day Contact prescriber if questions or concerns Unchanged diclofenac (diclofenac sodium 50 mg oral delayed release tablet) 1 tab(s) by mouth Two (2) times a day Contact prescriber if questions or concerns Unchanged dicyclomine (dicyclomine 10 mg oral capsule) 1 cap by mouth Four (4) times a day Contact prescriber if questions or concerns Unchanged famotidine (famotidine 40 mg oral tablet) 1 tab(s) by mouth Daily at bedtime Contact prescriber if questions or concerns Unchanged gabapentin (gabapentin 600 mg oral tablet) 1 tab(s) by mouth Four (4) times a day Neuropathy Duration: 30 Days OARRS checked 2023 Contact prescriber if questions or concerns Unchanged hydroCHLOROthiazide (hydroCHLOROthiazide 12.5 mg oral capsule) 1 cap by mouth Once a day Contact prescriber if questions or concerns Unchanged hydrOXYzine (hydrOXYzine hydrochloride 25 mg oral tablet) 1 tab(s) by mouth Four (4) times a day as needed for as needed for anxiety Contact prescriber if questions or concerns Unchanged levothyroxine (levothyroxine 50 mcg (0.05 mg) oral tablet) 1 tab(s) by mouth Once a day Contact prescriber if questions or concerns Unchanged methocarbamol (methocarbamol 500 mg oral tablet) 1 tab(s) by mouth Four (4) times a day Duration: 90 Days Contact prescriber if questions or concerns Unchanged metoprolol (metoprolol tartrate 25 mg oral tablet) 1 tab(s) by mouth Two (2) times a day Contact prescriber if questions or concerns Unchanged Misc Medication (Beets Cardio) See instructions two daily Contact prescriber if questions or concerns Unchanged montelukast (montelukast 10 mg oral tablet) 1 tab(s) by mouth Once a day Contact prescriber if questions or concerns Unchanged multivitamin (Multivitamin) 1 tab(s) by mouth Every day Contact prescriber if questions or concerns Unchanged oxybutynin (oxybutynin 5 mg oral tablet) 1 tab(s) by mouth Two (2) times a day Contact prescriber if questions or concerns Unchanged pantoprazole (pantoprazole 40 mg oral enteric coated tablet) 1 tab(s) by mouth Two (2) times a day Contact prescriber if questions or concerns Unchanged QUEtiapine (QUEtiapine 50 mg oral tablet) 1 tab(s) by mouth Daily at bedtime Duration: 90 Days Contact prescriber if questions or concerns Pharmacy Information [facility]: [address] [place] [address], [place] [id number] [phone] Digitally Signed by SCARLETT ROSENBERG on 04/24/2024 08:51 PM [facility]08-12-2024 Telephone encounter Note* Telephone Encounter - Madyson Ramos - 03/25/2024 7:07 AM EDT Name of caller: Mitchell Brooks Contact phone number: [phone] Relationship to Patient: patient Provider: [facility] Practice: Gastroenterology Chief Complaint/Reason for Call: Pt has a new patient apt today, 03.25.2024 at 11:20AM and stated she is not feeling good and would like to cancel her apt. Pt stated she will call back when she is feeling better. Please advise. Thank you. Best time of day caller can be reached: Any Patient advised that office/PCP has 24-48 business hours to return their call: [id number] Miscellaneous Notes* Telephone Encounter - Madyson Ramos - 03/25/2024 7:07 AM EDT Name of caller: Mitchelllance Brooks Contact phone number: [phone] Relationship to Patient: patient Provider: Joyce Forester Practice: Gastroenterology Chief Complaint/Reason for Call: Pt has a new patient apt today, 03.25.2024 at 11:20AM and stated she is not feeling good and would like to cancel her apt. Pt stated she will call back when she is feeling better. Please advise. Thank you. Best time of day caller can be reached: Any Patient advised that office/PCP has 24-48 business hours to return their call: Yes documented in this [facility]06-15-2023 Miscellaneous Notes* Telephone Encounter - Criss Landers - 01/26/2023 3:14 PM EDT This patient was seen by Myke Ross in the ED around . Patient lives out in [place] wanting a [facility]# [phone] Please call her if there is any other questions Thanks! documented [facility] this [facility] NoteHNO ID: [id number] Author: Melodie Smith APRN.PRODUCT DEVELOPMENT INTERN Service: Cardiovascular Medicine Author Type: Nurse Practitioner Type: Plan of Care Filed: 01/14/2023 10:23 AM Note Text: [facility] BRIEF PLAN OF CARE CONSULTING SERVICE: Cardiology: Consult Team PRIMARY SERVICE: Internal Medicine HOSPITAL DAY: #4 REASON FOR CONSULT: Atrial fibrillation SUBJECTIVE HPI: Ms. Brooks is a 47 year old female from [place], [place] with h/o morbid obesity, necrotizing fascitis (2012), septic shock, bipolar disorder, HTN, tobacco abuse, asthma//COPD, lymphedema/lipedema, hypothyroidism, who presented with fever, chills and weakness. Primary work up diagnosis was cellulitis of LLE. While in hospital went in AF. Denies prior h/o AF, CAD, CHF, HTN, Stroke or TIA.. Denies feeling it. No chest pain, palpitations or lightheadedness. She was started on Metoprolol by primary service. OBJECTIVE MEDICATIONS: Current Facility-Administered Medications Medication Dose Route Frequency miconazole 2 % 1 application topical powder 1 application TOPICAL BID carBAMazepine 100 mg tab(s) (TEGretol) 100 mg ORAL DAILY carBAMazepine 200 mg tab(s) (TEGretol) 200 mg ORAL AT BEDTIME hydrOXYzine HCl 25 mg tab(s) (ATARAX) 25 mg ORAL QID PRN benztropine 0.5 mg tab(s) (COGENTIN) 0.5 mg ORAL BID brexpiprazole 0.25 mg tab(s) (REXULTI) 0.25 mg ORAL DAILY albuterol 2.5 mg /3 mL (0.083 %) 2.5 mg (PROVENTIL) 2.5 mg INHALATION q 4 H PRN colestipol 1 g tab(s) (COLESTID) 1 g ORAL BID famotidine 20 mg tab(s) (PEPCID) 20 mg ORAL BID montelukast 10 mg tab(s) (SINGULAIR) 10 mg ORAL AT BEDTIME pantoprazole DR 40 mg tab(s) (PROTONIX) 40 mg ORAL BID methocarbamol 500 mg tab(s) (ROBAXIN) 500 mg ORAL TID PRN levothyroxine 50 mcg tab(s) (SYNTHROID) 50 mcg ORAL DAILY gabapentin 600 mg cap(s) (NEURONTIN) 600 mg ORAL q 6 H NaCl 0.9% iv flush bag 20 mL INTRAVENOUS PRN acetaminophen 650 mg tab(s) (TYLENOL) 650 mg ORAL q 6 H PRN trospium 20 mg tab(s) (SANCTURA) 20 mg ORAL BID AC bismuth subsalicylate 262 mg/15 mL 30 mL (BISMATROL) 30 mL ORAL q 6 H PRN lidocaine 4 % 1 Patch (SALONPAS) 1 Patch TRANSDERMAL DAILY AT 9 PM And lidocaine patch - REMOVE OTHER DAILY And lidocaine - VERIFY PATCH OTHER q 8 H benzonatate 100 mg cap(s) (TESSALON PERLE) 100 mg ORAL TID ceFAZolin iv piggyback 2 g in D5W (iso-osmotic) 100 mL (ANCEF) 2 g INTRAVENOUS q 8 HR calcium carbonate 500 mg chewable tab(s) (TUMS) 500 mg ORAL BID PRN sodium chloride 0.9 % (flush) 2-10 mL (BD POSIFLUSH) 2-10 mL INTRAVENOUS DIRECTED PRN metoprolol tartrate (short acting) 37.5 mg tab(s) (LOPRESSOR) 37.5 mg ORAL q 8 H PHYSICAL EXAM: 01/13/23 2253 01/14/23 0410 01/14/23 0635 01/14/23 0800 BP: 113/72 114/80 95/61 Pulse: 91 78 92 Resp: 18 19 20 18 Temp: 36.6 ?C (97.9 ?F) 36.7 ?C (98.1 ?F) 36.9 ?C (98.4 ?F) TempSrc: Oral Oral Oral SpO2: 95% 95% 94% Weight: Height: Intake/Output Summary (Last 24 hours) at 01/14/2023 1012 Last data filed at 01/14/2023 0700 Gross per 24 hour Intake 240 ml Output 1000 ml Net -760 ml TELEMETRY: DATA: Laboratory: Recent Labs 01/13/23 0446 01/12/23 0443 WBC 8.61 8.61 HB 10.4* 10.3* HCT 34.0* 33.2* PLT 289 271 NA 142 141 K 3.7 4.1 CHLOR 105 106* CO2 27 26 BUN 7 9 CREAT 0.59 0.69 GLUC 97 107* ASSESSMENT / RECOMMENDATIONS / PLAN Newly diagnosed AF in s/o acute LLE cellulitis HTN Tobacco abuse Asthma//COPD - telemetry reviewed; atrial fib, rate controlled, HR between ~88-110 - ECHO (01/13/2023): EF 62?5%. Right ventricle dilated. RVSP 42 mmHg. No significant valvular abnormalities. - continue rate control with metoprolol tartrate 37.5 mg twice daily, titrate as needed. Heart rate leniently controlled. - [id number] VASc score is 2. Recommend to start OAC if no contraindication. Noted patient is on Tegretol. She needs a follow up with Cardiology in 2-4 weeks. If remains in AF may plan on elective outpatient DCC after adequate anticoagulation. Reviewed with patient the need for anticoagulation to help reduce the stroke risk. Patient agrees to start medication. -Recommend outpatient sleep study. -Can decide outpatient when to complete ischemic evaluation. -She wishes to establish care with a clinical editor in the [place] area>>recommend follow up in 3-4 weeks -No further recommendations at this time, cardiology will sign off. -Thank you for allowing us to participate in the care of this patient Case discussed with Dr. Chintan Yusuf Part of this note was copied from a previous note. All content has been individually and thoroughly reviewed, updated as necessary, patient assessed with updated information and changes properly documented/adjusted. SIGNATURE: Melodie Smith APRN.CNP PATIENT NAME: Mitchell Brooks DATE: January 14, 2023 TIME: 10:18 AM PAGER/CONTACT #: [phone] For communication after 5 pm on weekdays and on weekends, please page the (more content not included)...[facility] [id number] NoteHNO ID: [id number] Author: Cindy Hameed RN Service: Care Management Author Type: Registered Nurse Type: Care Mgt Progress Note Filed: 01/13/2023 3:09 PM Note Text: CARE MANAGEMENT PROGRESS NOTE SERVICE DATE: 01/13/2023 SERVICE TIME: 3:05 PM LOS: 3 days Met with patient regarding PT OT recs for home health care. Patient does not feel like she needs this service. There are no accepting home care agencies. Call placed to [facility] to inquire about who her wrapper caser is. Patient does not have a wrapper caser. Patient completing assessment over phone with Crystal from [facility] to get her qualified for wrapper casergrievance manager. SIGNATURE: Cindy Hameed RN PATIENT NAME: Mitchell Brooks DATE: January 13, 2023 TIME: 3:05 PM PAGER/CONTACT #: [phone] [id number] NoteHNO ID: [id number] Author: Chrissy Novoa MD Service: Hospital Medicine Author Type: Physician Type: Progress Notes Filed: 01/13/2023 1:21 PM Note Text: DEPARTMENT OF HOSPITAL MEDICINE PROGRESS NOTE SERVICE DATE: 01/13/2023 SERVICE TIME: 1:15 PM Hospital Medicine/Primary Attending: Chrissy Novoa MD NIGHT AND WEEKEND COVERAGE: [place] COVERAGE: : [phone], please contact via Yoomly Nights: [phone] - 3rd floor: please page [facility] Hospitalist night cover [phone] - 4th floor: please page CC Hospitalist night cover [phone] - 5th floor: please page CC Hospitalist night cover [phone] Subjective INTERVAL HPI: Patient seen and examined. She is feeling better and no more fever or chills overnight. Does not have any new complaints. Current Facility-Administered Medications Medication Dose Route Frequency miconazole 2 % 1 application topical powder 1 application TOPICAL BID carBAMazepine 100 mg tab(s) (TEGretol) 100 mg ORAL DAILY carBAMazepine 200 mg tab(s) (TEGretol) 200 mg ORAL AT BEDTIME hydrOXYzine HCl 25 mg tab(s) (ATARAX) 25 mg ORAL QID PRN benztropine 0.5 mg tab(s) (COGENTIN) 0.5 mg ORAL BID brexpiprazole 0.25 mg tab(s) (REXULTI) 0.25 mg ORAL DAILY albuterol 2.5 mg /3 mL (0.083 %) 2.5 mg (PROVENTIL) 2.5 mg INHALATION q 4 H PRN colestipol 1 g tab(s) (COLESTID) 1 g ORAL BID famotidine 20 mg tab(s) (PEPCID) 20 mg ORAL BID montelukast 10 mg tab(s) (SINGULAIR) 10 mg ORAL AT BEDTIME pantoprazole DR 40 mg tab(s) (PROTONIX) 40 mg ORAL BID methocarbamol 500 mg tab(s) (ROBAXIN) 500 mg ORAL TID PRN levothyroxine 50 mcg tab(s) (SYNTHROID) 50 mcg ORAL DAILY gabapentin 600 mg cap(s) (NEURONTIN) 600 mg ORAL q 6 H NaCl 0.9% iv flush bag 20 mL INTRAVENOUS PRN acetaminophen 650 mg tab(s) (TYLENOL) 650 mg ORAL q 6 H PRN trospium 20 mg tab(s) (SANCTURA) 20 mg ORAL BID AC bismuth subsalicylate 262 mg/15 mL 30 mL (BISMATROL) 30 mL ORAL q 6 H PRN lidocaine 4 % 1 Patch (SALONPAS) 1 Patch TRANSDERMAL DAILY AT 9 PM And lidocaine patch - REMOVE OTHER DAILY And lidocaine - VERIFY PATCH OTHER q 8 H benzonatate 100 mg cap(s) (TESSALON PERLE) 100 mg ORAL TID ceFAZolin iv piggyback 2 g in D5W (iso-osmotic) 100 mL (ANCEF) 2 g INTRAVENOUS q 8 HR calcium carbonate 500 mg chewable tab(s) (TUMS) 500 mg ORAL BID PRN sodium chloride 0.9 % (flush) 2-10 mL (BD POSIFLUSH) 2-10 mL INTRAVENOUS DIRECTED PRN And perflutren lipid microspheres 1.1 mg/mL 1.3 mL injection (DEFINITY) 1.3 mL INTRAVENOUS DIRECTED PRN metoprolol tartrate (short acting) 37.5 mg tab(s) (LOPRESSOR) 37.5 mg ORAL q 12 H Objective PHYSICAL EXAM: BP 119/84 Pulse 98 Temp (Src) 97.7 (Oral) Resp 17 Ht 5' 2" (1.58m) Wt 352 lb 8.3 oz (159.9kg) SpO2 94% LMP 11/14/2022 BMI 64.46 kg/(m2). O2 Therapy: Room Air Physical Exam Performed: General appearance: Super morbid obesity, well appearing, alert and orientedx3, in no acute distress. Skin: color, texture, turgor normal Head: Normocephalic, no masses, lesions Eyes: PERRLA. Neck: Supple, no bruits Lungs: Clear to auscultation. No wheezing, rhonchi, rales. Heart: Irregularly irregular, without murmur, gallop, or rubs Abdomen: soft, non-tender. Bowel sounds normal Extremities: Significant bilateral lymphedema, mild erythema and warmness of left lower extremity in the lower leg and ankle area, much improved since admission Musculoskeletal: No joint swelling, deformity, or tenderness Neuro: No focal neurologic deficit Lines, Drains, and Airways Line Duration Peripheral 01/12/23 1300 Short Right Hand 24 Gauge 1 day Peripheral 01/12/23 1436 Right Forearm 20 Gauge <1 day Drain Duration External Collection Device 01/10/23 0243 3 days Reviewed lines and needs to be continued: REASONS: Intravenous fluids and Intravenous antibiotics DATA: Diagnostic tests reviewed for today's visit: Most recent labs Most recent imaging Most recent EKG Assessment/Plan Problem List Sepsis (HCC) POA: Yes Hypothyroidism POA: Yes Class 3 severe obesity with serious comorbidity and body mass index (BMI) of 60.0 to 69.9 in adult (HCC) POA: Yes Tobacco use disorder POA: Yes HTN (hypertension) POA: Yes Asthma POA: Yes Bipolar depression (HCC) POA: Yes Cellulitis of left lower extremity POA: Yes Fever POA: Yes Bandemia POA: Yes Atrial fibrillation (HCC) POA: No HOSPITAL COURSE: Mitchell Brooks is a 47 year old female with past medical history of obesity, necrotizing fascitis (2012), septic shock, IBS, bipolar depression, HTN, chronic pain, asthma, copd, lymphedema, hypothyroidism, who presented to [facility] Monday with chills and weakness, then admitted here for continued care. Principal Problem: Sepsis (HCC) Cellulitis of left lower extremity Assessment AND Plan: symptom onset Monday afternoon, chills, rigors, fever. WBC 28. Initial lactate 2.3, improved to 1.4 after fluids. CXR nothing acute. Started on Zosyn at [facility]. No definite (more content not included)...[facility] [id number] NoteHNO ID: [id number] Author: Myke Ross MD Service: Infectious Disease Author Type: Physician Type: Progress Notes Filed: 01/12/2023 8:14 PM Note Text: INFECTIOUS DISEASE - PROGRESS NOTE Patient Name: Mitchell Brooks Date of : 1975 SUBJECTIVE: Chief complaint / reason for follow up visit: Continuing to follow for fevers, leukocytosis. Interval Events: Patient states she is feeling better today. Denies any fevers or chills. Denies any pain. No new complaints. States her left leg has reduced erythema. Review of Systems: As above otherwise negative. OBJECTIVE: BP 114/93 Pulse 88 Temp 36.5 ?C (97.7 ?F) (Oral) Resp 20 Ht 157.5 cm (5' 2") Wt (!) 159.9 kg (352 lb 8.3 oz) LMP 11/14/2022 (Approximate) SpO2 94% BMI 64.48 kg/m? Physical Examination: Constitutional: no distress, resting comfortably on room air Skin: no rash Eyes: no scleral icterus Head/Face/Neck: supple neck Respiratory/Chest: Nonlabored breathing, equal chest rise Cardiovascular: Regular rate Gastrointestinal: non tender, normal sounds : No Bryan Musculoskeletal: no joint swelling Extremities: no rash, no edema Neurological: no focal deficits, no speech difficulties Psychological: appropriate behavior Stool: Date 01/11/23 1500 - 01/12/23 0659 01/12/23 0700 - 01/13/23 0659 Shift 7854-6357 2273-7660 24 Hour Total 2607-6205 7231-4968 0781-1721 24 Hour Total INTAKE PO 540 1140 735 256 2036 PO 540 1140 422 590 5864 Shift Total 540 1140 149 747 1718 OUTPUT Urine 400 400 800 300 100 400 Void (ml) 400 400 800 300 100 400 Urine Not Saved. 1 x 2 x 2 x 2 x # of BMs Number of BMs 0 x 0 x 0 x 0 x 0 x Shift Total 400 400 800 300 100 400 Weight (kg) 159.9 159.9 159.9 159.9 159.9 159.9 159.9 Laboratory Studies (I personally reviewed the clinical labs and microbiology data): WBC (k/uL) Date Value 01/12/2023 8.61 07/19/2016 9.62 Creatinine (mg/dL) Date Value 01/12/2023 0.69 07/19/2016 0.70 Estimated Creatinine Clearance: 148 mL/min (based on SCr of 0.69 mg/dL). Microbiology: Blood cultures: 01/09/2023: blood cultures are pending Other microbiology data: 01/09/2023: COVID-19 testing negative Prior microbiology: 07/20/2013: Wound culture labeled drainage right thigh fluid with many Staph aureus Imaging (I personally visualized the films below): Chest x ray 01/09/2023: IMPRESSION: No acute radiographic finding CT abdomen/pelvis with IV contrast 01/09/2023: IMPRESSION: 1. Left common iliac lymphadenopathy up to 2 cm to be reactive or malignant 2. Colon diverticulosis 3. Left ovarian cyst 4.2 cm. X-ray of the right knee 01/10/2023: IMPRESSION: Severe degenerative narrowing at the medial compartment of the right knee. Marginal osteophytes IMPRESSIONS: 1. Fevers, leukocytosis, likely nonpurulent cellulitis of the left lower leg --- Presenting with severe rigors, chills, and weakness --- Notable hx of nec fasc of the right thigh --- White count elevated to 28, lactate 2.4 on admission improved with fluid hydration --- UA on admission to the ED was negative, blood cultures are pending --- CT abdomen/pelvist with iliac lymphadenopathy, CXR with no acute process --- She did have some mild erythema of the left lower leg but no significant tenderness and no lymphangitic streaking --- Right knee is painful, likely chronic in nature --- X-ray of the right knee showed severe degenerative changes --- On further discussion with the patient she did state that she had discomfort of her left leg around the site of erythema, but this has improved --- White count normalized, no longer febrile --- Given lack of alternate cause of infection likely etiology appears to be cellulitis of the left lower leg --- Continue on IV cefazolin while in house and once ready for discharge ok to send on oral cefadroxil as detailed below 2. New onset Afib --- Started on metoprolol per primary --- Cardiology on board 3. Hx of right thigh abscess/necrotizing fasciitis secondary to MSSA in 2013 --- Course complicated by septic shock, underwent surgical debridement with cultures growing MSSA (not seen by ID at that time) SUGGESTIONS / PLAN: 1. Continue on IV cefazolin in house 2. Once ready for discharge ok to send on oral cefadroxil 1 g BID through a stop date of 01/19/23 3. I will arrange for follow up in ID clinic 4. Recommend leg elevation and/or compression to the left leg 5. Afib management per primary and cardiology 6. Will sign off at this time, please call with any questions or concerns I personally monitored antibiotics requiring intensive drug monitoring for therapeutic and adverse effects for toxicity Myke Ross MD, PhD Staff, Infectious Disease [facility] Office [phone] Please call anytime with questions or concerns. Case findings/test results and suggestions disc (more content not included)... [facility] [id number] NoteHNO ID: [id number] Author: Chrissy Novoa MD Service: Hospital Medicine Author Type: Physician Type: Progress Notes Filed: 01/12/2023 12:24 PM Note Text: DEPARTMENT OF HOSPITAL MEDICINE PROGRESS NOTE SERVICE DATE: 01/12/2023 SERVICE TIME: 12:19 PM Hospital Medicine/Primary Attending: Chrissy Novoa MD NIGHT AND WEEKEND COVERAGE: [place] COVERAGE: Days: [phone], please contact via Yoomly Nights: - 3rd floor: please page CC Hospitalist night cover [phone] - 4th floor: please page CC Hospitalist night cover [phone] - 5th floor: please page CC Hospitalist night cover [phone] Subjective INTERVAL HPI: Patient seen and examined. She is feeling better and no more fever or chills overnight. Does not have any new complaints. Current Facility-Administered Medications Medication Dose Route Frequency miconazole 2 % 1 application topical powder 1 application TOPICAL BID carBAMazepine 100 mg tab(s) (TEGretol) 100 mg ORAL DAILY carBAMazepine 200 mg tab(s) (TEGretol) 200 mg ORAL AT BEDTIME hydrOXYzine HCl 25 mg tab(s) (ATARAX) 25 mg ORAL QID PRN benztropine 0.5 mg tab(s) (COGENTIN) 0.5 mg ORAL BID brexpiprazole 0.25 mg tab(s) (REXULTI) 0.25 mg ORAL DAILY albuterol 2.5 mg /3 mL (0.083 %) 2.5 mg (PROVENTIL) 2.5 mg INHALATION q 4 H PRN colestipol 1 g tab(s) (COLESTID) 1 g ORAL BID famotidine 20 mg tab(s) (PEPCID) 20 mg ORAL BID montelukast 10 mg tab(s) (SINGULAIR) 10 mg ORAL AT BEDTIME pantoprazole DR 40 mg tab(s) (PROTONIX) 40 mg ORAL BID methocarbamol 500 mg tab(s) (ROBAXIN) 500 mg ORAL TID PRN levothyroxine 50 mcg tab(s) (SYNTHROID) 50 mcg ORAL DAILY gabapentin 600 mg cap(s) (NEURONTIN) 600 mg ORAL q 6 H NaCl 0.9% iv flush bag 20 mL INTRAVENOUS PRN acetaminophen 650 mg tab(s) (TYLENOL) 650 mg ORAL q 6 H PRN trospium 20 mg tab(s) (SANCTURA) 20 mg ORAL BID AC bismuth subsalicylate 262 mg/15 mL 30 mL (BISMATROL) 30 mL ORAL q 6 H PRN lidocaine 4 % 1 Patch (SALONPAS) 1 Patch TRANSDERMAL DAILY AT 9 PM And lidocaine patch - REMOVE OTHER DAILY And lidocaine - VERIFY PATCH OTHER q 8 H benzonatate 100 mg cap(s) (TESSALON PERLE) 100 mg ORAL TID ceFAZolin iv piggyback 2 g in D5W (iso-osmotic) 100 mL (ANCEF) 2 g INTRAVENOUS q 8 HR metoprolol tartrate (short acting) 25 mg tab(s) (LOPRESSOR) 25 mg ORAL q 12 H calcium carbonate 500 mg chewable tab(s) (TUMS) 500 mg ORAL BID PRN Objective PHYSICAL EXAM: BP 96/59 Pulse 97 Temp (Src) 97.9 (Oral) Resp 17 Ht 5' 2" (1.58m) Wt 352 lb 8.3 oz (159.9kg) SpO2 96% LMP 11/14/2022 BMI 64.46 kg/(m2). O2 Therapy: Room Air Physical Exam Performed: General appearance: Super morbid obesity, well appearing, alert and orientedx3, in no acute distress. Skin: color, texture, turgor normal Head: Normocephalic, no masses, lesions Eyes: PERRLA. Neck: Supple, no bruits Lungs: Clear to auscultation. No wheezing, rhonchi, rales. Heart: Irregularly irregular, without murmur, gallop, or rubs Abdomen: soft, non-tender. Bowel sounds normal Extremities: Significant bilateral lymphedema, mild erythema and warmness of left lower extremity in the lower leg and ankle area, much improved since admission Musculoskeletal: No joint swelling, deformity, or tenderness Neuro: No focal neurologic deficit Lines, Drains, and Airways Line Duration Peripheral 01/09/23 Admission to Hospital Short Right Antecubital 20 Gauge 3 days Drain Duration External Collection Device 01/10/23 0243 2 days Reviewed lines and needs to be continued: REASONS: Intravenous fluids and Intravenous antibiotics DATA: Diagnostic tests reviewed for today's visit: Most recent labs Most recent imaging Most recent EKG Assessment/Plan Problem List Sepsis (HCC) POA: Yes Hypothyroidism POA: Yes Class 3 severe obesity with serious comorbidity and body mass index (BMI) of 60.0 to 69.9 in adult (HCC) POA: Yes Tobacco use disorder POA: Yes HTN (hypertension) POA: Yes Asthma POA: Yes Bipolar depression (HCC) POA: Yes Cellulitis of left lower extremity POA: Yes Fever POA: Yes Bandemia POA: Yes Atrial fibrillation (HCC) POA: No HOSPITAL COURSE: Mitchell Brooks is a 47 year old female with past medical history of obesity, necrotizing fascitis (2012), septic shock, IBS, bipolar depression, HTN, chronic pain, asthma, copd, lymphedema, hypothyroidism, who presented to [facility] ED Monday with chills and weakness, then admitted here for continued care. Principal Problem: Sepsis (HCC) Cellulitis of left lower extremity Assessment AND Plan: symptom onset Monday afternoon, chills, rigors, fever. WBC 28. Initial lactate 2.3, improved to 1.4 after fluids. CXR nothing acute. Started on Zosyn at [facility]. No definite source other than the possible cellulitis LLE. Vancomycin added on 01/10/2023. - Sepsis carepath - No more fever overnight, Tmax last 24 hours 37.2 ?C - Leukocytosis improved from 29.12 to 13.19 to 8.6 - ID switched antibiotics to (more content not included)...[facility] 01-12-2023 NoteHNO ID: [id number] Author: Mitchell Alfredo RN Service: Care Management Author Type: Registered Nurse Type: Care Mgt Progress Note Filed: 01/12/2023 1:30 PM Note Text: CARE MANAGEMENT PROGRESS NOTE SERVICE DATE: 01/12/2023 SERVICE TIME: 11:46 AM LOS: 2 days [place] of Choice Given: Yes Level of Care Discussed: Home Care Financial Disclosure Provided: Yes Provider List: Home Care Provider list within the patient's requested geographic area shared with the patient/family: Yes Met with patient at bedside to discuss PT recommendations of Home PT. She has a 6-click score of 23. She lives with spouse and uses a cane at baseline. Discussed the barrier of her [facility] plan[email or web address] [place] [facility]. Will send referrals and attempt to arrange this service. If unable, patient may be interested in attending outpatient PT. She has done this in the past. 1329: Unable to secure Home PT for patient d/t insurance coverage. SIGNATURE: Mitchell Alfredo RN PATIENT NAME: Mitchell Brooks DATE: January 12, 2023 TIME: 11:46 AM PAGER/CONTACT #: [phone] [id number] NoteHNO ID: [id number] Author: Chrissy Novoa MD Service: Hospital Medicine Author Type: Physician Type: Progress Notes Filed: 01/11/2023 10:34 AM Note Text: DEPARTMENT OF HOSPITAL MEDICINE PROGRESS NOTE SERVICE DATE: 01/11/2023 SERVICE TIME: 10:28 AM Hospital Medicine/Primary Attending: Chrissy Novoa MD NIGHT AND WEEKEND COVERAGE: [place] COVERAGE: Days: [phone], please contact via Yoomly Nights: [phone] - 3rd floor: please page CC Hospitalist night cover [phone] - 4th floor: please page CC Hospitalist night cover [phone] - 5th floor: please page CC Hospitalist night cover [phone] Subjective INTERVAL HPI: Patient seen and examined. She is feeling better and no more fever or chills overnight. Does not have any new complaints. Current Facility-Administered Medications Medication Dose Route Frequency miconazole 2 % 1 application topical powder 1 application TOPICAL BID carBAMazepine 100 mg tab(s) (TEGretol) 100 mg ORAL DAILY carBAMazepine 200 mg tab(s) (TEGretol) 200 mg ORAL AT BEDTIME hydrOXYzine HCl 25 mg tab(s) (ATARAX) 25 mg ORAL QID PRN benztropine 0.5 mg tab(s) (COGENTIN) 0.5 mg ORAL BID brexpiprazole 0.25 mg tab(s) (REXULTI) 0.25 mg ORAL DAILY albuterol 2.5 mg /3 mL (0.083 %) 2.5 mg (PROVENTIL) 2.5 mg INHALATION q 4 H PRN colestipol 1 g tab(s) (COLESTID) 1 g ORAL BID famotidine 20 mg tab(s) (PEPCID) 20 mg ORAL BID montelukast 10 mg tab(s) (SINGULAIR) 10 mg ORAL AT BEDTIME pantoprazole DR 40 mg tab(s) (PROTONIX) 40 mg ORAL BID methocarbamol 500 mg tab(s) (ROBAXIN) 500 mg ORAL TID PRN levothyroxine 50 mcg tab(s) (SYNTHROID) 50 mcg ORAL DAILY gabapentin 600 mg cap(s) (NEURONTIN) 600 mg ORAL q 6 H NaCl 0.9% iv flush bag 20 mL INTRAVENOUS PRN NaCl 0.9% iv infusion 75 mL/hr INTRAVENOUS CONTINUOUS acetaminophen 650 mg tab(s) (TYLENOL) 650 mg ORAL q 6 H PRN trospium 20 mg tab(s) (SANCTURA) 20 mg ORAL BID AC piperacillin-tazobactam iv piggyback 3.375 g in dextrose (iso-osmotic) 50 mL (ZOSYN) 3.375 g INTRAVENOUS q 6 H vancomycin dosing and monitoring per pharmacy OTHER As Directed vancomycin 1.5 g in NaCl 0.9% 250 mL (VANCOCIN) 1.5 g INTRAVENOUS q 12 HR bismuth subsalicylate 262 mg/15 mL 30 mL (BISMATROL) 30 mL ORAL q 6 H PRN lidocaine 4 % 1 Patch (SALONPAS) 1 Patch TRANSDERMAL DAILY AT 9 PM And lidocaine patch - REMOVE OTHER DAILY And lidocaine - VERIFY PATCH OTHER q 8 H benzonatate 100 mg cap(s) (TESSALON PERLE) 100 mg ORAL TID potassium chloride ER 40 mEq tab(s) (KLOR-CON) 40 mEq ORAL q 4 H Objective PHYSICAL EXAM: BP 114/62 Pulse 91 Temp (Src) 99.1 (Oral) Resp 17 Ht 5' 2" (1.58m) Wt 352 lb 8.3 oz (159.9kg) SpO2 96% LMP 11/14/2022 BMI 64.46 kg/(m2). O2 Therapy: Nasal Cannula, Liters: 1.50 Physical Exam Performed: General appearance: Super morbid obesity, well appearing, alert and orientedx3, in no acute distress. Skin: color, texture, turgor normal Head: Normocephalic, no masses, lesions Eyes: PERRLA. Neck: Supple, no bruits Lungs: Clear to auscultation. No wheezing, rhonchi, rales. Heart: RRR without murmur, gallop, or rubs Abdomen: soft, non-tender. Bowel sounds normal Extremities: Significant bilateral lymphedema, mild erythema and warmness of left lower extremity in the lower leg and ankle area, much improved since admission Musculoskeletal: No joint swelling, deformity, or tenderness Neuro: No focal neurologic deficit Lines, Drains, and Airways Line Duration Peripheral 01/09/23 Admission to Hospital Short Right Antecubital 20 Gauge 2 days Drain Duration External Collection Device 01/10/23 0243 1 day Reviewed lines and needs to be continued: REASONS: Intravenous fluids and Intravenous antibiotics DATA: Diagnostic tests reviewed for today's visit: Most recent labs Most recent imaging Most recent EKG Assessment/Plan Problem List Sepsis (HCC) POA: Yes Hypothyroidism POA: Yes Tobacco use disorder POA: Yes HTN (hypertension) POA: Yes Asthma POA: Yes Bipolar depression (HCC) POA: Yes Cellulitis of left lower extremity POA: Yes Fever POA: Status not on file Bandemia POA: Status not on file HOSPITAL COURSE: Mitchell Brooks is a 47 year old female with past medical history of obesity, necrotizing fascitis (2012), septic shock, IBS, bipolar depression, HTN, chronic pain, asthma, copd, lymphedema, hypothyroidism, who presented to [facility] ED Monday with chills and weakness, then admitted here for continued care. Principal Problem: Sepsis (HCC) Cellulitis of left lower extremity Assessment AND Plan: symptom onset Monday afternoon, chills, rigors, fever. WBC 28. Initial lactate 2.3, improved to 1.4 after fluids. CXR nothing acute. Started on Zosyn at [facility]. No definite source other than the possible cellulitis LLE. Vancomycin added on 01/10/2023. - Sepsis carepath - No more fever overnight, Tmax last 24 hours 37.7 ?C -Leukocytosis improved from 29.12 to 13.19 - continue zosyn a (more content not included)...[facility] [id number] NoteHNO ID: [id number] Author: Myke Rsos MD Service: Infectious Disease Author Type: Physician Type: Progress Notes Filed: 01/11/2023 4:06 PM Note Text: INFECTIOUS DISEASE - PROGRESS NOTE Patient Name: Mitchell Brooks Date of : 1975 SUBJECTIVE: Chief complaint / reason for follow up visit: Continuing to follow for fevers, leukocytosis. Interval Events: Patient states she is feeling better today. Denies any fevers or chills. Denies any pain. No new complaints. States her left leg has reduced erythema. Review of Systems: As above otherwise negative. OBJECTIVE: BP 114/62 Pulse 91 Temp 37.3 ?C (99.1 ?F) (Oral) Resp 17 Ht 157.5 cm (5' 2") Wt (!) 159.9 kg (352 lb 8.3 oz) LMP 11/14/2022 (Approximate) SpO2 96% BMI 64.48 kg/m? Physical Examination: Constitutional: no distress, resting comfortably on room air Skin: no rash Eyes: no scleral icterus Head/Face/Neck: supple neck Respiratory/Chest: Nonlabored breathing, equal chest rise Cardiovascular: Regular rate Gastrointestinal: non tender, normal sounds : No Bryan Musculoskeletal: no joint swelling Extremities: no rash, no edema Neurological: no focal deficits, no speech difficulties Psychological: appropriate behavior Stool: Date 01/10/23 0700 - 01/11/23 0659 01/11/23 0700 - 01/12/23 0659 Shift 1199-2148 6788-1396 6348-1379 24 Hour Total 0983-4146 6913-7751 1626-0959 24 Hour Total INTAKE PO 250 120 370 PO 250 120 370 IV 550 1095 1026 2671 Volume (mL) (piperacillin-tazobactam iv piggyback 3.375 g in dextrose (iso-osmotic) 50 mL (ZOSYN)) 100 100 50 250 Volume (mL) (vancomycin 1.5 g in NaCl 0.9% 250 mL (VANCOCIN)) 250 250 500 Volume (mL) (NaCl 0.9% iv infusion) 200 045 390 3514 Shift Total 800 1215 1026 3041 OUTPUT Urine 8931 372 3959 Urine Incontinence/Not Saved 1 x 1 x 2 x Output ( External Collection Device 01/10/23 0243) 1090 688 0622 # of BMs Stool Incontinence 1 x 1 x Number of BMs 2 x 2 x Shift Total 6811 170 7054 Weight (kg) 159.9 159.9 159.9 159.9 159.9 159.9 159.9 159.9 Laboratory Studies (I personally reviewed the clinical labs and microbiology data): WBC (k/uL) Date Value 01/11/2023 13.19 07/19/2016 9.62 Creatinine (mg/dL) Date Value 01/11/2023 0.72 07/19/2016 0.70 Estimated Creatinine Clearance: 141.8 mL/min (based on SCr of 0.72 mg/dL). Microbiology: Blood cultures: 01/09/2023: blood cultures are pending Other microbiology data: 01/09/2023: COVID-19 testing negative Prior microbiology: 07/20/2013: Wound culture labeled drainage right thigh fluid with many Staph aureus Imaging (I personally visualized the films below): Chest x ray 01/09/2023: IMPRESSION: No acute radiographic finding CT abdomen/pelvis with IV contrast 01/09/2023: IMPRESSION: 1. Left common iliac lymphadenopathy up to 2 cm to be reactive or malignant 2. Colon diverticulosis 3. Left ovarian cyst 4.2 cm. X-ray of the right knee 01/10/2023: IMPRESSION: Severe degenerative narrowing at the medial compartment of the right knee. Marginal osteophytes IMPRESSIONS: 1. Fevers, leukocytosis, likely nonpurulent cellulitis of the left lower leg --- Presenting with severe rigors, chills, and weakness --- Notable hx of nec fasc of the right thigh --- White count elevated to 28, lactate 2.4 on admission improved with fluid hydration --- UA on admission to the ED was negative, blood cultures are pending --- CT abdomen/pelvist with iliac lymphadenopathy, CXR with no acute process --- She did have some mild erythema of the left lower leg but no significant tenderness and no lymphangitic streaking --- Right knee is painful, likely chronic in nature --- X-ray of the right knee showed severe degenerative changes --- On further discussion with the patient she did state that she had discomfort of her left leg around the site of erythema, but this has improved --- Given lack of alternate cause of infection, improving erythema and discomfort of the left lower leg, likely etiology appears to be cellulitis of the left lower leg --- Will de-escalate antibiotics to cefazolin and monitor overnight --- Anticipate likely discharge on oral antibiotics tomorrow 2. Hx of right thigh abscess/necrotizing fasciitis secondary to MSSA in 2013 --- Course complicated by septic shock, underwent surgical debridement with cultures growing MSSA (not seen by ID at that time) SUGGESTIONS / PLAN: 1. Discontinue IV vancomycin and Zosyn, started on IV cefazolin 2 g every 8 hour 2. Monitor overnight for ongoing improvement, anticipating possible discharge on oral antibiotics tomorrow assuming blood cultures remain negative and no other evidence of infection 3. Will follow I personally monitored antibiotics requiring intensive drug monitoring for therapeutic and adverse effects for toxicity Myke Ross MD, PhD Staff, Infectious Disease [place] (more content not included)...[facility] [id number] NoteHNO ID: [id number] Author: RT Patti(R) Service: Radiology Author Type: Technologist Type: Progress Notes Filed: 01/10/2023 11:29 AM Note Text: Radiology Service Progress Note PATIENT NAME: Mitchell Brooks DATE OF SERVICE: January 10, 2023 TIME: 11:28 AM PATIENT IDENTITY VERIFICATION COMPLETED USING TWO (2) IDENTIFIERS: Name and Date of confirmed by patient verbally. FALL SCREENING: Has the patient had 2 falls in the last year or 1 fall with injury or currently using an Ambulatory Assistive Device (Walker, Cane, Wheelchair, Crutches, etc.)? Inpatient: Screened on floor PATIENT GENDER DATA: Female. status: : No status: NO. PATIENT RELEVANT IMPLANT DATA REVIEWED: Not Applicable RADIOLOGY DEPARTMENT: General X-ray: Exam(s) Completed: Lower Extremity X-Ray(s): Knee, AP / LAT Right PERIPHERAL IV DATA: Not applicable SIGNED BY: RT Patti(R) January 10, 2023 11:28 [id number] NoteHNO ID: [id number] Author: Chrissy Novoa MD Service: Hospital Medicine Author Type: Physician Type: Plan of Care Filed: 01/10/2023 11:31 AM Note Text: INPATIENT SEPSIS BPA RESPONSE NOTE SERVICE DATE: 01/10/2023 SERVICE TIME: 11:25 AM Patient seen and examined. Admitted early this morning by night team. Was admitted for sepsis likely due to left lower leg cellulitis. Was started on Zosyn, I added vancomycin this morning. ID consult placed. Notified that Sepsis BPA fired based on leukocytosis. This is a 47 year old female who was admitted to the hospital for sepsis likely due to left lower leg cellulitis. Currently no concern for new infection at this time. Continue to monitor, no further orders at this time. . Data Reviewed: Vitals: BP 106/40 Pulse 116 Temp (Src) 103.1 (Oral) Resp 18 Ht 5' 2" (1.58m) Wt 352 lb 8.3 oz (159.9kg) SpO2 93% LMP 11/14/2022 BMI 64.46 kg/(m2). O2 Therapy: Nasal Cannula, Liters: 2 Labs/Imaging: Most recent labs Most recent imaging Most recent EKG Diagnosis/Assement and Plan: If Sepsis: A. SIRS Temperature >38.3?C or <36?C, Heart rate >90 beats/min, and WBC >12,000, <4000 cells/mm3, or >10 percent immature (band) forms B. Possible source of infection: Soft tissue infection/cellulitis. - Blood cultures obtained: Yes - IV Fluids - 30mL/kg fluid bolus: Yes - Maintenance fluids: Yes - Antibiotics initiated: Yes - Lactate: Initially was elevated but later normalized - Patient added to sepsis care path: Yes Plan of care discussed with Provider, RN, Patient SIGNATURE: Chrissy Novoa MD PATIENT NAME: Mitchell Brooks DATE: January 10, 2023 TIME: 11:25 [id number] NoteHNO ID: [id number] Author: Cindy Hameed RN Service: Care Management Author Type: Registered Nurse Type: Care Mgt Initial Assessment Filed: 01/10/2023 10:31 AM Note Text: CARE MANAGEMENT: ASSESSMENT AND DISCHARGE PLAN SERVICE DATE: January 10, 2023 SERVICE TIME: 10:29 AM PCP: No primary care provider on file. Primary Contact: Extended Emergency Contact Information Primary Emergency Contact: Kalani Zhang [address]: [address] [place] [id number] [place] [address] Relation: Daughter Secondary Emergency Contact: Rahul Ly Address: [address] [place] [id number] [place] [address] Mobile Relation: Ex Spouse Admission Status: Inpatient Insurance Provider: [facility] MEDICAID Discharge Planning requested by: Per Department Practice Potential Transition Plans Home Advance Directives Current Advance Directive: Health Care Power of Elementary School Counselor In Chart: Yes Up To Date and Valid: No Supervisor [employer] Attempted to Assist with AD Completion: Yes Action: Education Provided Current Living Arrangements and Support Lives with: Spouse/significant other Type of Residence: Private Residence (House) Support: Family members How do you manage to accomplish the following: Independent: Ambulation;Bathe/Shower;Dress;Meals/Meal Prep;Going to the bathroom;Medication Management Needs Assistance: Transportation to appointments/community Current Services/Equipment Current Post-Acute Service(s): DME Current DME Type: Cane, Shower seat Discharge Planning Patient Goal(s): Be able to go home Stover of Choice Explained: Stover of Choice Given: No Reason Not Given: Unable to complete with this assessment - revisit Discharge Planning Participant(s): Patient Patient/Family Comments: NA Caregiver Assessment: Caregiver is ready, willing and able to meet the patient's needs as recommended by the inter-professional team: No Caregiver needed Transport at Discharge: Transportation Arrangements: Car Needs Prior to Discharge: Needs Prior to Discharge: To Be Determined Post-Acute Discharge Plan: Patient from home with spouse. Patient states she uses a cane and has a shower chair. Patient states she is on disability and also gets food stamps. Case Management will continue to follow for dc needs. SIGNATURE: Cindy Hameed RN PATIENT NAME: Mitchell Brooks DATE: January 10, 2023 TIME: 10:29 AM CONTACT #: [phone] [id number] Miscellaneous Notes* Telephone Encounter - Aman Pena LPN - 07/25/2022 9:08 AM EST Pt has appt to Establish Care with Dr. Deepti Ruiz on 08/01/22. Dr. Lim has not been listed as this pt's PCP since 2012 and has not been seen by anyone in this practice since 2015. Aman Pena LPN [facility] History of Present illness Narrative* Geraldine Suggs MA - 06/24/2022 12:37 PM EST ED Follow Up: Patient discharged from [facility] ED on 06/22/2022. 1. How are you feeling since your ED visit? OK Have your symptoms improved or resolved? OK during the day at night worse 2. Were you prescribed any medications while in the ED or advised to stop any medication? Yes - If yes, were you able to fill your prescriptions? Yes -if stopped medication, what was the medication? na 3. Were you advised to schedule a follow up appointment with your provider? Yes - If no, Do you feel like you need an appointment scheduled? Yes - If yes, Do you need this scheduled now or has this already been scheduled? Yes 4. Were you able to contact the office or assistant director of plant operations provider prior to your ED visit? Not applicable 5. Is there anything else I can do for you today? No Patient was transferred to call center to schedule apt. Geraldine Suggs MA help desk support rang busy documented in this encounterA[facility] History of Past illness Narrative* Problem Noted Date Resolved Date Septic shock 07/20/2013 01/10/2023 Overview: On Dopamine, vasopressine and NE upon admission Given solumedrol 125mg IV at OSH Given 8L at OSH Started on meropenem, ceftriaxone, vanc and clindamycin at OSH (one dose of each) ? Necrotizing fascitis? Plan: Continue pressors Bolus NS 500cc once Hydrocortisone 100mg q8hrs Start vanc, clinda and zosyn Gen Surgery consulted --> to the OR for debridement. RAFIA (acute kidney injury) 07/20/20132022 Overview: Baseline Cr 0.58 07/20 Cr 1.6 Possibly 2/2 sepsis (organ damage) as pt received 8L IVFs Making urine appropriately Plan: IVFs Myofascial pain 05/10/2013 07/20/2013 Morbid obesity with BMI of 70 and over, adult 01/10/2023 documented as of this encounter (statuses as of 01/27/2023) [facility] History of Past illness Narrative* Problem Noted Date Resolved Date Myofascial pain 05/10/2013 07/20/2013 documented as of this encounter (statuses as of 06/24/2022) [facility] History of Past illness Narrative* Problem Noted Date Resolved Date Myofascial pain 05/10/2013 07/20/2013 documented as of this encounter (statuses as of 07/25/2022) [facility] History of Past illness Narrative* Problem Noted Date Resolved Date Myofascial pain 05/10/2013 07/20/2013 documented as of this encounter (statuses as of 07/25/2022) [facility] Future Scheduled Tests Laboratory* Thyroid Stimulating Hormone 06/23/24 * Complete Blood Count 06/23/24 * Lipid Profile 06/23/24 * Complete Metabolic Panel 06/23/24 [facility] aluation + Plan note Future Appointments Appointment Date:02/17/2025 02:30:00 PM Scheduled Provider:LEEANN KING MD Location:[facility] Appointment Type:NS OV Appointment Date:04/03/2025 02:00:00 PM Scheduled Provider:REUBEN LION JR, MD Location:Gen Surg [facility] Appointment Type:GS OV Check Up Future Scheduled Tests Laboratory* Thyroid Stimulating Hormone 06/23/24 * Complete Blood Count 06/23/24 * Lipid Profile 06/23/24 * Complete Metabolic Panel 06/23/24 [facility] Evaluation + Plan note Future Appointments Appointment Date:02/17/2025 02:30:00 PM Scheduled Provider:LEEANN KING MD Location:[facility] Appointment Type:NS OV Appointment Date:02/18/2025 02:00:00 PM Scheduled Provider:ANNETTE SAMANO Location:[facility] Appointment Type:PC OV Appointment Date:03/03/2025 12:45:00 PM Scheduled Provider:LILLIAM TURNER APRN-PRODUCT DEVELOPMENT INTERN Location:[facility] Appointment Type:PM OV Appointment Date:04/03/2025 02:00:00 PM Scheduled Provider:REUBEN LION JR, MD Location:Gen [facility]urg [facility] Appointment Type:GS OV Check Up Future Scheduled Tests Laboratory* Thyroid Stimulating Hormone 06/23/24 * Complete Blood Count 06/23/24 * Lipid Profile 06/23/24 * Complete Metabolic Panel 06/23/24 [facility] ation note* Diagnosis Onset Date Resolution Status Irritable bowel syndrome with diarrhea [facility] Work Phone: Evaluation note* Diagnosis Acquired hypothyroidism Unspecified hypothyroidism documented in this encounter [facility] [place] [facility]* Diagnosis Onset Date Resolution Status GERD (gastroesophageal reflux disease) chronic Irritable bowel syndrome with diarrhea [facility] Work Phone: Evaluation noteNo assessment information available [facility] Work Phone: Hospital course Narrative No data available for this section [facility] Discharge instructions No data available for this section [facility] note No data available for this section [facility] Reason for referral (narrative)No reason for referral information availableWOhioHealth [facility] Work Phone: Summary Purpose Family History No Family History Records Found Relationship Condition Age at Onset Recorded Date/T carlos Unknown Family History?Diabetes Unknown Apr 2:43pm Family History?Diabetes Unknown [facility] 2016 12:06am Family History?No pe rtinent history Unknown July 12, 2017 12:06am Relationship Condition Age at Onset Recorded Date/T carlos father Diabetes mellitus Unknown grandmother Cardiac disease Unknown grandfather Cardiac disease Unknown mother Malignant neoplasm Unknown Advance Directives No Advanced Directives Records Found Advance Directive Response Recorded Date/ Time Advance Directives No March 14 12:04pm Living Will No May 06, 2021 12:19pm Power of Elementary School Counselor No April 12:19pm Documents on File Type Date Recorded 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 Advance Directive(s) 07/18/2016 10:03 AM Advance Directive Response Recorded Date/ Time Advance Directives No March 14 12:04pm Chief Complaint and Reason for Visit Chief Complaint FU E-ORDER Reason for Visit Irritable bowel synd nam with diarrhea Chief Complaint 3 MO FU Reason for Visit GERD (gastroesophage al reflux disease) Irritable bowel syndrome with diarrhea Additional Source Comments INFORMATION SOURCE (unrecogn ized section and content) DATE CREATED AUTHOR 07/27/2018 [facility] DATE CREATED AUTHOR AUTHOR'S ORGANIZ ATION 05/03/2019 [facility] ([place]) DATE CREATED AUTHOR AUTHOR'S ORGANIZ ATION 08/19/2020 [facility] DATE CREATED AUTHOR AUTHOR'S ORGANIZ ATION 01/24/2023 [facility] DATE CREATED AUTHOR AUTHOR'S ORGANIZ ATION 01/27/2023 [facility] DATE CREATED AUTHOR AUTHOR'S ORGANIZ ATION 02/14/2023 [facility] DATE CREATED AUTHOR AUTHOR'S ORGANIZ ATION 02/16/2023 [employer] DATE CREATED AUTHOR AUTHOR'S ORGANIZ ATION 2024 [facility] DATE CREATED AUTHOR AUTHOR'S ORGANIZ ATION 12/30/2024 [facility] DATE CREATED AUTHOR AUTHOR'S ORGANIZ ATION 02/02/2025 [facility] DATE CREATED AUTHOR AUTHOR'S ORGANIZ ATION 02/04/2025 [facility] DATE CREATED AUTHOR AUTHOR'S ORGANIZ ATION 03/19/2025 [facility] Goals (unrecognized section and content) Goals may be documented in a n alternate sectionGoals may be documented in an alternate section No data available for this section No data available for this section No data available for this section No data available for this sectionGoals may be documented in an alternate section No data available for this sectionGoals may be documented in an alternate section Source Comments (unrecognize d section and content) In the event this informatio n is protected by the Federal Confidentiality of Alcohol and Drug Abuse Patient Records regulations: The Federal rules restrict any use of the information to criminally investigate or prosecute any alcohol or drug abuse patient.[facility]ighIn the event this information is protected by the Federal Confidentiality of Alcohol and Drug Abuse Patient Records regulations: The Federal rules restrict any use of the information to criminally investigate or prosecute any alcohol or drug abuse patient.[facility]ighIn the event this information is protected by the Federal Confidentiality of Alcohol and Drug Abuse Patient Records regulations: The Federal rules restrict any use of the information to criminally investigate or prosecute any alcohol or drug abuse patient.[facility]ighIn the event this information is protected by the Federal Confidentiality of Alcohol and Drug Abuse Patient Records regulations: The Federal rules restrict any use of the information to criminally investigate or prosecute any alcohol or drug abuse patient.[facility]ighIn the event this information is protected by the Federal Confidentiality of Alcohol and Drug Abuse Patient Records regulations: The Federal rules restrict any use of the information to criminally investigate or prosecute any alcohol or drug abuse patient.[facility] Reason for Visit (unrecogniz ed section and content) Reason Onset Date Comments ED OUTREACH 06/24/2022 ED OUTREACH Reason Onset Date Comments Refill Request 07/24/2022 Reason Comments Patient Question Referral Reason Onset Date Comments Cancelled Appointment 03/25/2024 Care Teams (unrecognized sec tion and content) Team Status: Active Member Role Status Dates Dr. Geovanny Nesbitt DO Family Provider Active Dr. Nabila Watson MD Primary Care Provider Active Team Status: Inactive Member Role Status Dates Dr. Nabila Watson MD Primary Care Provider, Referrin g Provider Active Cat Dent MAID CLEANING COOKING, MAID CLEANING COOKING-C Attending Provider Active Team Status: Inactive Member Role Status Dates Dr. Nabila Watson MD Primary Care Prov ider, Attending Provider, Referring Provider Active City Attorney Relationship Specialty Start Date End Date Nabila Watson MD [address] [place] [address] PCP - General Family Medicine 01/11/23 City Attorney Relationship Specialty Start Date End Date Geovanny Nesbitt DO [address] [place] [address] PCP - General 09/04/18 Team Status: Active Member Role Status Dates Dr. Geovanny Nesbitt DO Family Provider Active Annette Samano MAID CLEANING COOKING, MAID CLEANING COOKING-C Primary Care Provider Active Team Status: Inactive Member Role Status Dates Annette Samano MAID CLEANING COOKING, MAID CLEANING COOKING-C Primary Care Provider Active Start: January 29, 2025 End: January 29, 2025 Annette Samano MAID CLEANING COOKING, MAID CLEANING COOKING-C Attending Provider Active Start: January 29, 2025 End: January 29, 2025 Team Status: Active Member Role/Relationship Status Dates Annette Samano MAID CLEANING COOKING, MAID CLEANING COOKING-C Primary Care Provider Active Team Status: Inactive Member Role/Relationship Status Dates Annette Samano MAID CLEANING COOKING, MAID CLEANING COOKING-C Primary Care Provider Active Start: January 29, 2025 End: January 29, 2025 Annette Samano MAID CLEANING COOKING, MAID CLEANING COOKING-C Attending Provider Active Start: January 29, 2025 End: January 29, 2025 FOR RECORDS PERTAINING TO PATIENTS WHO ARE OR HAVE BEEN ENROLLED IN A CHEMICAL DEPENDENCY/SUBSTANCEABUSE PROGRAM, SOME INFORMATION MAY BE OMITTED. This clinical summary was aggregated from multiple sources. Caution should be exercised in using it in the provision of clinical care. This summary normalizes information from multiple sources, and as a consequence, information in this document may materially change the coding, format and clinical context of patient data. In addition, data may be omitted in some cases. CLINICAL DECISIONS SHOULD BE BASED ON THE PRIMARY CLINICAL RECORDS. [facility], [facility]. provides no warranty or guarantee of the accuracy or completeness of information in this document.
--- NOTE | 2025-06-01 13:46 | RAD_ITS ---
PROCEDURE: CHEST PA AND LATERAL 06/01/2025 REASON FOR EXAM: SHORTNESS OF BREATH TECHNIQUE: Procedure Code: RADCXR Modality: DX Procedure: CHEST PA AND LATERAL COMPARISON: None. FINDINGS: Cardiomegaly. Central vascular congestion. No appreciable focal airspace consolidation, pneumothorax, or sizable pleural effusion. Mild degenerative changes of the visualized spine. RAD/Chest PA and Lateral IMPRESSION: Cardiomegaly with vascular congestion. No appreciable airspace consolidation or pleural effusion. Reading Location: [id number]
--- NOTE | 2025-06-01 13:46 | EKG12_ITS ---
Test Reason : SOB Blood Pressure : */* mmHG Vent. Rate : 108 BPM Atrial Rate : 108 BPM P-R Int : 128 ms QRS Dur : 82 ms QT Int : 348 ms P-R-T Axes : 72 46 38 degrees QTcB Int : 466 ms Sinus tachycardia Low voltage QRS Borderline ECG Confirmed by RENEE BULLARD, JOHN ([id number]), design editor FADIA SHORT ([id number]) on 06/02/2025 10:40:07 AM Referred By: Confirmed By: JOHN DURAN MD
[2025-06-01 14:01] LABS: Differential Indicated SCAN CRITERIA MET; Hematocrit 35.2 % (37-47); Hemoglobin 11.0 g/dL (12.0-15.0); Immature Granulocytes Count 0.040 X10^3/uL (0.0-0.0); Mean Corp Hgb Conc 31.3 g/dL (32-36); Mean Corpuscular Volume 82.1 fL (81-99); Mean Platelet Vol. 10.9 fl (6.2-12.0); NRBC Flagged by Analyzer 0 % (0-5); POSITIVE DIFFERENTIAL YES; POSITIVE MORPHOLOGY YES; Platelet Count 198 K/mm3 (150-450); RBC Distribution Width CV 20.2 % (11.6-14.6); RBC Distribution Width SD 60.1 fl (35.1-43.9); Red Blood Count 4.29 M/mm3 (4.2-5.4); White Blood Count 17.2 K/mm3 (4.4-11.0)
--- NOTE | 2025-06-01 14:13 | EX.ED.DYSGE1 ---
HPI History of Present Illness Chief Complaint: Shortness of Breath Narrative Narrative: Chief complaint and HPI: 50-year-old female with past medical history of obesity, COPD, GERD, gastritis, HTN, spinal stenosis presents for evaluation of shortness of breath. Patient states yesterday evening she developed shortness of breath, cough, fever, and chills. States she had abdominal pain as well however her abdominal pain has improved. She denies any nausea, vomiting, diarrhea, constipation, dysuria. Triage note states that she has been having numbness/tingling of the bilateral extremities. She denies this to me. She states that her arms and legs feel like rubber but there is no numbness or tingling. She usually does not wear her oxygen, she was found to be 84% on room air which she was placed on nasal cannula. Review of systems: See HPI Medications: As listed on the chart Allergies: As listed on the chart PFSH: Per chart Vital signs: As listed on the chart. Reviewed. Physical exam: Gen: A&O x3 Head: Normocephalic, atraumatic Eyes: No sclera icterus, conjunctiva clear ENT: Moist mucous membranes Neck: Trachea midline CV: Tachycardic, regular rhythm, no murmurs Resp: Lungs diminished in the bilateral bases, expiratory wheezing, mildly coarse, on 3 L nasal cannula GI: Abd soft, non-distended, non-tender, no r/r/g Musc: moves all extremities, no deformity Skin: Warm, dry Neuro: Alert, oriented, grossly intact, sensation intact Psych: Cooperative, appropriate mood and affect [facility] Medical History RAFIA (acute kidney injury) Anemia Anxiety Arthritis Asthma Back pain Bilateral primary osteoarthritis of knee Bipolar depression Chronic bronchitis Chronic headaches Chronic ulcer of right thigh with fat layer exposed COPD (chronic obstructive pulmonary disease) Decreased hearing Dyslipidemia Dysphagia Essential (primary) hypertension Excessive bleeding Gastric reflux Gastritis GERD (gastroesophageal reflux disease) History of atrial fibrillation History of edema History of headache History of pain when walking History of tobacco use History of ulceration Hypothyroidism Injury of head and neck Irritable bowel syndrome Irritable bowel syndrome with diarrhea Migraine headache Morbid obesity Neuropathy Nicotine dependence Obesity Osteoarthritis Osteochondroma of femur Pulmonary hypertension Rheumatoid arthritis Seasonal allergies Thyroid disease TIA (transient ischemic attack) Home Medications Medication Instructions Recorded Last Taken Type levothyroxine 50 mcg tablet 50 mcg PO DAILY 05/02/15 05/11/21 History (Unithroid) albuterol sulfate 90 mcg/actuation 2 puff inhalation Q4H PRN PRN 05/06/21 Unknown History aerosol inhaler ASTHMA bismuth subsalicylate 262 mg 2 tab PO Q30M PRN Diarrhea 05/06/21 Unknown History chewable tablet (Pepto-Bismol) diclofenac sodium 50 mg 50 mg PO BID 05/06/21 Unknown History tablet,delayed release fluticasone propionate 110 2 inh inhalation BID 05/06/21 Unknown History mcg/actuation HFA aerosol inhaler (Flovent HFA) glucosamine 750 jn-anareo-jof 2-C 1 tab PO DAILY 05/06/21 Unknown History 30 mg-D3 1,000 unit-kathrin 1 mg tablet (Tygckdzmenp-Eusetkbahvb-XLI + vitD) montelukast 10 mg tablet 10 mg PO DAILY 05/06/21 Unknown History multivitamin 1 tab PO DAILY 05/06/21 Unknown History pantoprazole 40 mg tablet,delayed 40 mg PO BID 05/06/21 Unknown History release trolamine salicylate 10 % topical 1 applic topical BID PRN Skin 05/06/21 Unknown History cream Cleansing albuterol sulfate 2.5 mg/3 mL 2.5 mg inhalation Q4H PRN 04/26/23 Unknown History (0.083 %) solution for nebulization benztropine 0.5 mg tablet 0.5 mg PO BID 04/26/23 Unknown History brexpiprazole 0.25 mg tablet 0.25 mg PO DAILY 04/26/23 Unknown History (Rexulti) cetirizine 10 mg capsule (All Day 10 mg PO DAILY PRN 04/26/23 Unknown History Allergy (cetirizine)) hydroxyzine HCl 25 mg tablet 25 mg PO 4X/DAY PRN 04/26/23 Unknown History methocarbamol 500 mg tablet 500 mg PO Q6H PRN 04/26/23 Unknown History oxybutynin chloride 5 mg 5 mg PO DAILY 04/26/23 Unknown History tablet,extended release 24 hr (Ditropan XL) quetiapine 50 mg tablet 50 mg PO QHS 04/26/23 Unknown History gabapentin 600 mg tablet 600 mg PO Q6H 05/12/23 Unknown History colestipol 1 gram tablet 1 g PO BID #180 tabs 11/06/23 Unknown Rx dicyclomine 10 mg capsule 10 mg PO TID PRN abdominal pain 09/04/23 Unknown Rx #14 caps famotidine 40 mg tablet 40 mg PO DAILY #30 tabs 09/11/23 Unknown Rx cetirizine 10 mg tablet 10 mg PO QDAY 05/16/24 Unknown History clopidogrel 75 mg tablet 75 mg PO DAILY #90 TABLETS 03/14/25 Unknown Rx metoprolol tartrate 25 mg tablet 25 mg PO BID #180 tabs 05/09/25 Unknown Rx Allergy/AdvReac Type Severity Reaction Status Date / Time naproxen (From Aleve) Allergy Intermediate Itching Verified 06/01/25 12:40 tizanidine (From Zanaflex) Allergy Intermediate Rash Verified 06/01/25 12:40 ciprofloxacin HCl (From Allergy Shortness Verified 06/01/25 12:40 Cipro) of breath codeine Allergy Shortness Verified 06/01/25 12:40 of breath hydrocodone Allergy Shortness Verified 06/01/25 12:40 of breath ibuprofen (From Advil) Allergy Rash Verified 06/01/25 12:40 morphine Allergy Angioedema Verified 06/01/25 12:40 tizanidine HCl (From Allergy Rash Verified 06/01/25 12:40 Zanaflex) acetaminophen (From Vicodin) AdvReac Severe Anaphylaxis Verified 06/01/25 12:40 celecoxib (From Celebrex) AdvReac Intermediate Swelling Verified 06/01/25 12:40 cyproheptadine AdvReac Intermediate Hives Verified 06/01/25 12:40 Penicillins AdvReac Itching Verified 06/01/25 12:40 Family History Father Diabetes Grandmother Heart disease Grandfather Heart disease Mother Cancer Liver Surgical History Hx of cervical spine surgery Hx of section Hx of surgical procedure Hx of tracheostomy Hx of tubal ligation Social History Smoking Status: Current every day smoker tobacco type: cigarettes Electronic Cigarette Use: without nicotine alcohol intake: never substance use type: does not use caffeine: Yes Type: coffee Number of servings: 2 EXAM Physical Exam Const Vital Signs: 06/01/25 12:40 06/01/25 12:47 06/01/25 12:48 Temperature 98.8 F 98.8 F Temperature Source Oral Oral Pulse Rate 94 92 Respiratory Rate 20 H 22 H Respiratory Effort Short of Breath Respiratory Pattern Tachypnea Blood Pressure 110/92 H 110/92 H Blood Pressure Mean 98 98 Pulse Ox 94 94 Oxygen Delivery Method Nasal Cannula Nasal Cannula Nasal Cannula Oxygen Flow Rate (L/min) 4 4 4 06/01/25 13:39 06/01/25 13:45 06/01/25 14:00 Temperature 98.8 F 98.8 F Temperature Source Oral Oral Pulse Rate 115 H 109 H 109 H Respiratory Rate 22 H 25 H 25 H Respiratory Effort Respiratory Pattern Blood Pressure 98/39 L 91/59 L 91/59 L Blood Pressure Mean 58 69 69 Pulse Ox 93 98 98 Oxygen Delivery Method Room Air Nasal Cannula Nasal Cannula Oxygen Flow Rate (L/min) 3 3 06/01/25 14:00 06/01/25 14:00 06/01/25 14:00 Temperature Temperature Source Pulse Rate 121 H 121 H Respiratory Rate 28 H Respiratory Effort Respiratory Pattern Blood Pressure 92/50 L Blood Pressure Mean 64 Pulse Ox 100 94 Oxygen Delivery Method Nasal Cannula Nasal Cannula Oxygen Flow Rate (L/min) 2.5 2 06/01/25 15:00 06/01/25 15:00 06/01/25 16:00 Temperature 98.8 F Temperature Source Oral Pulse Rate 74 124 H 125 H Respiratory Rate 16 20 H Respiratory Effort Respiratory Pattern Blood Pressure 97/66 97/53 L 87/49 L Blood Pressure Mean 76 67 61 Pulse Ox 94 96 93 Oxygen Delivery Method Room Air Nasal Cannula Nasal Cannula Oxygen Flow Rate (L/min) 2 06/01/25 17:00 06/01/25 17:00 06/01/25 17:24 Temperature 98.8 F Temperature Source Oral Pulse Rate 120 H 120 H 119 H Respiratory Rate 24 H Respiratory Effort Respiratory Pattern Blood Pressure 88/49 L 88/49 L 97/61 Blood Pressure Mean 62 62 73 Pulse Ox 94 94 93 Oxygen Delivery Method Nasal Cannula Nasal Cannula Nasal Cannula Oxygen Flow Rate (L/min) 2 2 2 06/01/25 18:00 Temperature Temperature Source Pulse Rate 103 H Respiratory Rate Respiratory Effort Respiratory Pattern Blood Pressure 98/56 L Blood Pressure Mean 70 Pulse Ox 94 Oxygen Delivery Method Nasal Cannula Oxygen Flow Rate (L/min) 2 MDM MDM MDM Narrative Medical decision making narrative: 50-year-old female with past medical history of obesity, COPD, GERD, gastritis, HTN, spinal stenosis presents for evaluation of shortness of breath. Patient states yesterday evening she developed shortness of breath, cough, fever, and chills. States she had abdominal pain as well however her abdominal pain has improved. She denies any nausea, vomiting, diarrhea, constipation, dysuria. Triage note states that she has been having numbness/tingling of the bilateral extremities. She denies this to me. She states that her arms and legs feel like rubber but there is no numbness or tingling. She usually does not wear her oxygen, she was found to be 84% on room air which she was placed on nasal cannula. Differential diagnosis includes but is not limited to COPD exacerbation, pneumonia, viral illness, electrolyte abnormality, dehydration, arrhythmia, ACS, CHF. Patient states her abdominal pain has improved. Her abdomen is nontender on exam. I do not think any CT abdomen pelvis is needed at this time. VBG without hypercapnia or acidosis. CBC with leukocytosis at 17.2. Patient has anemia with hemoglobin of 11. Has history of anemia in the past. Platelets unremarkable. CMP shows RAFIA with a BUN of 21 and creatinine of 1.85. No transaminitis. Lipase unremarkable. Troponin 40 and 38. Patient not endorsing any chest pain. BNP elevated at 6489. UA positive for UTI. On chart review, patient has grown out protease in the past. Sensitive to Rocephin. Rocephin ordered. Urine culture obtained. Patient became hypotensive here in the emergency department, now meeting sepsis. Sepsis workup initiated. Given her elevated BNP and concern for fluid overload will be judicial with fluids and not give 30 cc/kg bolus. Ordered another NS bolus ordered. No clear etiology for her hypoxia other than CHF therefore will order CTA to assess for PE. CTA negative for PE. No pneumonia, pneumothorax, effusion. Patient has static caliber of central pulmonary vessels, may reflect pulmonary artery hypertension. On reevaluation, patient's blood pressure and tachycardia have improved with fluids. Patient will warrant admission. Patient was discussed with the hospitalist service who accepted admission. EKG: Interpreted by me/EM physician: EKG shows sinus tachycardia without any acute ischemic changes. Heart rate 108. Diagnostic: Interpreted by me/EM physician: Chest x-ray shows cardiomegaly with vascular congestion. Radiology in agreement. Impression: 1. Sepsis secondary to UTI 2. Acute hypoxia requiring oxygen via nasal cannula 3. CHF exacerbation 4. Resolved hypotension 5. Lactic acidosis 6. Anemia 35 minutes of critical care time utilized in managing the patient. This is due to high probability of and deterioration of the patient based on the patient's condition and excludes any separately billable procedures. Lab Data Labs: Laboratory Results - last 24 hr 06/01/25 06/01/25 06/01/25 12:45 15:42 15:51 WBC 17.2 H RBC 4.29 Hgb 11.0 L Hct 35.2 L MCV 82.1 MCH 25.6 L MCHC 31.3 L RDW Std Deviation 60.1 H RDW Coeff of Jordana 20.2 H Plt Count 198 MPV 10.9 Immature Gran % (Auto) 0.200 Neut % (Auto) 95.4 H Lymph % (Auto) 3.0 L [place] % (Auto) 0.5 Eos % (Auto) 0.1 Baso % (Auto) 0.8 Absolute Neuts (auto) 16.4 H Absolute Lymphs (auto) 0.52 L Nucleated RBC % 0 Differential Comment COMMENT Anisocytosis 1+ PT 15.0 H INR 1.2 APTT 37.6 H Sodium 137 Potassium 4.2 Chloride 99 Carbon Dioxide 22.8 Anion Gap 15 BUN 21 H Creatinine 1.85 H Estim Creat Clear Calc 54.35 Est GFR (MDRD) Non-Af 33 L BUN/Creatinine Ratio 11.1 Glucose 87 Lactic Acid Calcium 8.4 Total Bilirubin 1.28 AST 31 ALT 18 Alkaline Phosphatase 118 H Troponin T High Sens 40 H Troponin T Hi Sens 2 Hr 38 H NT pro BNP II 6489 H Total Protein 5.9 Albumin 3.4 L Globulin 2.5 Albumin/Globulin Ratio 1.3 Lipase 10 L Urine Color Nanda Urine Clarity Cloudy Urine pH 8.0 Ur Specific [place] 1.010 Urine Protein 30 H Urine Glucose (UA) Normal Urine Ketones Negative Urine Occult Blood 250 H Urine Nitrite Positive H Urine Bilirubin 1 H Urine Urobilinogen Normal Ur Leukocyte Esterase 500 H Urine RBC 5-10 SEEN Urine WBC 10-25 SEEN Ur Squamous Epith Cells 0-5 SEEN Ur Transition Epith Cell 0-5 SEEN Ur Renal Epithelial Cell 0-5 SEEN Urine Bacteria 4+ Urine Mucus 0 SEEN 06/01/25 17:46 WBC RBC Hgb Hct MCV MCH MCHC RDW Std Deviation RDW Coeff of Jordana Plt Count MPV Immature Gran % (Auto) Neut % (Auto) Lymph % (Auto) [place] % (Auto) Eos % (Auto) Baso % (Auto) Absolute Neuts (auto) Absolute Lymphs (auto) Nucleated RBC % Differential Comment Anisocytosis PT INR APTT Sodium Potassium Chloride Carbon Dioxide Anion Gap BUN Creatinine Estim Creat Clear Calc Est GFR (MDRD) Non-Af BUN/Creatinine Ratio Glucose Lactic Acid 3.8 H* Calcium Total Bilirubin AST ALT Alkaline Phosphatase Troponin T High Sens Troponin T Hi Sens 2 Hr NT pro BNP II Total Protein Albumin Globulin Albumin/Globulin Ratio Lipase Urine Color Urine Clarity Urine pH Ur Specific [place] Urine Protein Urine Glucose (UA) Urine Ketones Urine Occult Blood Urine Nitrite Urine Bilirubin Urine Urobilinogen Ur Leukocyte Esterase Urine RBC Urine WBC Ur Squamous Epith Cells Ur Transition Epith Cell Ur Renal Epithelial Cell Urine Bacteria Urine Mucus ABG Data ABG results: ABG 06/01/25 14:49 Specimen Type THAI Sample Site Not entered VBG pH 7.39 VBG pO2 30 VBG HCO3 25 VBG Total CO2 27 VBG O2 Sat (Calc) 57 VBG Base Excess 0 POC Mix VBG pCO2 Pt Tmp 41.7 O2 Delivery Device Not entered Radiography Diagnostic Testing: Clinical Impression(s) from Imaging Studies Chest X-Ray 06/01/25 13:46 IMPRESSION: Cardiomegaly with vascular congestion. No appreciable airspace consolidation or pleural effusion. Reading Location: [facility] Chest CTA 06/01/25 16:57 IMPRESSION: No central pulmonary arterial emboli. Inadequate evaluation of the segmental-subsegmental branches due to significant respiratory motion artifact and suboptimal IV contrast bolus timing. No airspace consolidation/edema, pneumothorax or pleural effusion. Ectatic caliber of central pulmonary vessels, may reflect pulmonary arterial hypertension. Reading Location: [facility] Discharge Plan Triage Chief Complaint: Shortness of Breath Other Complaint: Abd Pain ED Provider: Adiel Hawkins Dx/Rx/DC Orders Prescriptions: No Action oxybutynin chloride [Ditropan XL] 5 mg tablet extended release 24hr 5 mg PO DAILY All Day Allergy (cetirizine) 10 mg capsule 10 mg PO DAILY PRN quetiapine 50 mg tablet 50 mg PO QHS Rexulti 0.25 mg tablet 0.25 mg PO DAILY albuterol sulfate 2.5 mg /3 mL (0.083 %) solution for nebulization 2.5 mg inhalation Q4H PRN benztropine 0.5 mg tablet 0.5 mg PO BID gabapentin 600 mg tablet 600 mg PO Q6H Patient Comments: TAKE 1 TABLET BY MOUTH EVERY 6 HOURS cetirizine 10 mg tablet 10 mg PO QDAY levothyroxine [Unithroid] 50 MCG tablet 50 mcg PO DAILY Patient Comments: thyroid pill methocarbamol 500 mg tablet 500 mg PO Q6H PRN multivitamin Tablet 1 tab PO DAILY pantoprazole 40 mg tablet,delayed release (DR/EC) 40 mg PO BID Patient Comments: take 1 tablet by mouth twice a day bismuth subsalicylate [Pepto-Bismol] 262 mg Tablet,Chewable 2 tab PO Q30M PRN (Reason: Diarrhea) montelukast 10 mg tablet 10 mg PO DAILY diclofenac sodium 50 mg tablet,delayed release (DR/EC) 50 mg PO BID albuterol sulfate 90 mcg/actuation HFA aerosol inhaler 2 puff INHALATION Q4H PRN PRN (Reason: ASTHMA) Patient Comments: inhale 2 puffs by mouth and INTO THE LUNGS every 4 to 6 hours if needed for shortness of breath Flovent HFA 110 mcg/actuation HFA aerosol inhaler 2 inh INHALATION BID Patient Comments: inhale 2 puffs by mouth twice a day trolamine salicylate [Aspercreme] 10 % Cream 1 applic TOPICAL BID PRN (Reason: Skin Cleansing) [id number]-[id number]-WHF with vit D 750-30-1,000-1 fa-he-lbqi-mg Tablet 1 tab PO DAILY hydroxyzine HCl 25 mg tablet 25 mg PO 4X/DAY PRN Patient Comments: take 1 tablet by mouth four times a day if needed colestipol 1 gram tablet 1 g PO BID Qty: 180 3RF dicyclomine 10 mg capsule 10 mg PO TID PRN (Reason: abdominal pain) Qty: 14 0RF famotidine 40 mg tablet 40 mg PO DAILY Qty: 30 0RF clopidogrel 75 mg tablet 75 mg PO DAILY Qty: 90 3RF metoprolol tartrate 25 mg tablet 25 mg PO BID Qty: 180 3RF Primary Care Provider: Annette Samano NP Referrals: Annette Samano NP, [employer] [Primary Care Provider, Family Practice] Print Language: Dutch
[2025-06-01] MEDS: 0.9% Normal Saline (500mL Bag) 500 ML 1000 ML IV (14:24)
[2025-06-01 14:34] LABS: AST(SGOT) 31 U/L (<=31); Alanine Aminotransfer ALT/SGPT 18 U/L (<=34); Albumin, Serum 3.4 g/dL (3.5-5.0); Alkaline Phosphatase 118 U/L (35-104); Anion Gap 15 (5-15); BUN 21 mg/dL (4-19); BUN/Creat Ratio 11.1 RATIO (10-20); Calcium,Total 8.4 mg/dL (7.6-11.0); Carbon Dioxide 22.8 mmol/L (21.0-32.0); Chloride 99 mmol/L (98-108); Estimated Creatinine Clearance 54.35 ml/min (50-250); Globulin 2.5 g/dL (2.2-4.2); Glucose 87 mg/dL (70-99); Lipase 10 U/L (13-75); Potassium 4.2 mmol/L (3.3-5.1); Pro- Brain NATRIURETIC PEPTIDE 6489 pg/mL (<=900); Troponin T High Sensitivity 40 ng/L (<=14)
[2025-06-01 14:39] LABS: Anisocytosis 1+
[2025-06-01 14:53] LABS: SITE Not entered; VBG BASE EXCESS 0 mmol/L (-1.0-3.5); VBG PO2 30 mmHg (25-40); VBG SO2 57 % (50-70); VBG TCO2 27 mmol/L (23-33)
[2025-06-01 15:56] LABS: Mucous, Urine 0 SEEN /hpf (<or=2+)
[2025-06-01 15:57] LABS: Color, Urine Amber (Yellow); Glucose, Dipstick Normal (Normal); Ketone-Dipstick Negative (Negative); Leukocyte Esterase-Dipstick 500 /ul (Negative); Nitrite-Dipstick Positive (Negative); Occult Blood-Urine 250 /ul (Negative); Protein-Dipstick 30 mg/dl (Negative); Specific Gravity, Urine 1.010 (1.002-1.030)
[2025-06-01 15:59] LABS: Urine Bilirubin Dipstick 1 mg/dL (Negative)
[2025-06-01 16:08] LABS: Red Blood Cells-Urine 5-10 SEEN /hpf (0-5); Squamous Epithelial Cells - UA 0-5 SEEN /hpf (5-10)
[2025-06-01 16:09] LABS: Transitional Epithelial - Ur 0-5 SEEN /hpf (0-5)
[2025-06-01 16:18] LABS: Troponin T High Sens 2 HR 38 ng/L (<=14)
--- NOTE | 2025-06-01 16:57 | CT_ITS ---
PROCEDURE: CTA CHEST W/WO CONTRAST 06/01/2025 REASON FOR EXAM: HYPOXIA, PE TECHNIQUE: Procedure Code: [id number] Modality: CT Procedure: CTA CHEST W/WO CONTRAST Multiplanar Sagittal and Coronal images were obtained. 3D post processing was performed. CONTRAST: Isovue 370 VOLUME: 100 mL One or more dose reduction techniques were used (e.g., Automated exposure control, adjustment of the mA and/or kV according to patient size, use of iterative reconstruction technique). RADIATION DOSE SUMMARY: DLP: 1657.68 mGycm COMPARISON: None. FINDINGS: PULMONARY VESSELS: No central pulmonary arterial emboli. Evaluation of the segmental-subsegmental branches is inadequate due to significant respiratory motion artifact, and suboptimal timing of IV contrast bolus. Ectatic caliber of the central pulmonary arteries suggesting pulmonary arterial hypertension. No evidence of right heart strain. LUNGS/PLEURA: Respiratory motion. Mild scattered dependent subsegmental atelectasis. No airspace consolidation or findings of pulmonary edema. No pneumothorax or pleural effusion. MEDIASTINUM: Unremarkable. No suspicious lymph node enlargement. HEART: Top-normal in size. No pericardial effusion. Scant coronary artery calcifications. THORACIC AORTA: Normal. No aneurysm or dissection. UPPER ABDOMEN: No significant abnormality, as visualized. Probable hepatic steatosis. Circumscribed benign-appearing cyst in the anterior spleen measuring 3.2 cm. BONES: Mild degenerative changes of the spine. Lower cervical ACDF hardware. CT/CTA Chest W/WO Contrast IMPRESSION: No central pulmonary arterial emboli. Inadequate evaluation of the segmental-spicer bsegmental branches due to significant respiratory motion artifact and suboptimal IV contrast bolus timing. No airspace consolidation/edema, pneumothorax or pleural effusion. Ectatic caliber of central pulmonary vessels, may reflect pulmonary arterial hy pertension. Reading Location: [id number]
[2025-06-01] MEDS: 0.9% Normal Saline (1000mL) 1,000 ML 1000 ML IV (17:08)
--- NOTE | 2025-06-01 17:26 | ED.RN ---
Dr Rivas notified of sepsis alert
[2025-06-01 17:43] LABS: Prothrombin Time (Protime)PT. 15.0 SECONDS (11.7-14.9)
[2025-06-01 17:44] LABS: Partial Thromboplast Time 37.6 Seconds (24.1-36.2)
[2025-06-01] MEDS: fentaNYL 100 MCG/2 ML Ampul 50 MCG IV (18:51)
--- NOTE | 2025-06-01 19:01 | HP.PCM.HOS_ITS ---
HPI - General General Date of Admission: 06/01/25 Date of Service: 06/01/25 Chief Complaint: shortness of breath HPI Narrative MITCHELL BHATT, is a 50 F with a PMH as outlined who was admitted via the ED with a complaint of shortness of breath which started the day before admission. She had associated cough, fever and chills. She denied any urinary symptoms but admitted to abdominal pain and also complaiend of numbness and tingling of lower extremities. She usually did not use oxygen, but was saturating at 84% on room air in the ED. In the ED, she was noted to be hypotensive and was given IVF normal saline 2L bolus to which she responded. SHE was not resuscitated with IVF per sepsis protocol due to concerns for fluid overload. Vitals in the ED were blood pressure of 98/56, respirate rate of 103, oxygen saturation of 94% on 2 L of oxygen. Temperature was 98.8 Fahrenheit and she was breathing at 24/min. CBC showed hemoglobin of 11 with WBC of 17.2 and platelets of 198. INR was 1.2. Chemistry showed sodium of 137 potassium of 4.2 and bicarb of 22.8. Creatinine was 1.85. Lactic acid was 3.8. Total bilirubin, AST and ALT were normal but ALP was elevated at 118. Initial troponin was 40 and a repeat was 38. proBNP was elevated at 6489. Urinalysis showed evidence of UTI with 4+ bacteria and elevated leukocyte esterase as well as positive nitrites. Chest x-ray showed cardiomegaly with vascular congestion and no appreciable airspace consolidation or pleural effusion. CTA of the chest showed no central pulmonary arterial emboli and an adequate evaluation of the subsegmental and segmental branches due to significant respiratory motion artifact and suboptimal IV contrast bolus timing but no evidence of airspace consolidation, edema, pneumothorax or pleural effusion. She has been admitted to be managed for sepsis due to UTI as well as acute exacerbation of heart failure with unknown EF. [facility] Medical History RAFIA (acute kidney injury) Anemia Anxiety Arthritis Asthma Back pain Bilateral primary osteoarthritis of knee Bipolar depression Chronic bronchitis Chronic headaches Chronic ulcer of right thigh with fat layer exposed COPD (chronic obstructive pulmonary disease) Decreased hearing Dyslipidemia Dysphagia Essential (primary) hypertension Excessive bleeding Gastric reflux Gastritis GERD (gastroesophageal reflux disease) History of atrial fibrillation History of edema History of headache History of pain when walking History of tobacco use History of ulceration Hypothyroidism Injury of head and neck Irritable bowel syndrome Irritable bowel syndrome with diarrhea Migraine headache Morbid obesity Neuropathy Nicotine dependence Obesity Osteoarthritis Osteochondroma of femur Pulmonary hypertension Rheumatoid arthritis Seasonal allergies Thyroid disease TIA (transient ischemic attack) Home Medications Medication Instructions Recorded Last Taken Type levothyroxine 50 mcg tablet 50 mcg PO DAILY 05/02/15 0 05/11/21 History (Unithroid) albuterol sulfate 90 mcg/actuation 2 puff inhalation Q 4H PRN PRN 05/06/21 Unknown History aerosol inhaler ASTHMA bismuth subsalicylate 262 mg 2 tab PO Q30M PRN Diarrhe a 05/06/21 Unknown History chewable tablet (Pepto-Bismol) diclofenac sodium 50 mg 50 mg PO BID 05/06/21 Unknow n History tablet,delayed release fluticasone propionate 110 2 inh inhalation BID Unknown History mcg/actuation HFA aerosol inhaler (Flovent HFA) glucosamine 750 op-jrlynl-bkj 2-C 1 tab PO DAILY 05/06 Unknown History 30 mg-D3 1,000 unit-kathrin 1 mg tablet (Tscwgocdefn-Jglgiwtrvfh-QJY + vitD) montelukast 10 mg tablet 10 mg PO DAILY 05/06/21 Unkn own History multivitamin 1 tab PO DAILY 05/06/21 Unkn own History pantoprazole 40 mg tablet,delayed 40 mg PO BID 1 Unknown History release trolamine salicylate 10 % topical 1 applic topical BID PRN Skin 05/06/21 Unknown History cream Cleansing albuterol sulfate 2.5 mg/3 mL 2.5 mg inhalation Q4H AR N 04/26/23 Unknown History (0.083 %) solution for nebulization benztropine 0.5 mg tablet 0.5 mg PO BID 04/26/23 Unkno wn History brexpiprazole 0.25 mg tablet 0.25 mg PO DAILY 04/26/23 Unknown History (Rexulti) cetirizine 10 mg capsule (All Day 10 mg PO DAILY PRN 0 04/26/23 Unknown History Allergy (cetirizine)) hydroxyzine HCl 25 mg tablet 25 mg PO 4X/DAY PRN 04/26 Unknown History methocarbamol 500 mg tablet 500 mg PO Q6H PRN 04/26/23 Unknown History oxybutynin chloride 5 mg 5 mg PO DAILY 04/26/23 Unkno wn History tablet,extended release 24 hr (Ditropan XL) quetiapine 50 mg tablet 50 mg PO QHS 04/26/23 Unknow n History gabapentin 600 mg tablet 600 mg PO Q6H 05/12/23 Unkno wn History colestipol 1 gram tablet 1 g PO BID #180 tabs 3 Unknown Rx dicyclomine 10 mg capsule 10 mg PO TID PRN abdominal p ain 09/04/23 Unknown Rx #14 caps famotidine 40 mg tablet 40 mg PO DAILY #30 tabs 08/15 05/07 Unknown Rx cetirizine 10 mg tablet 10 mg PO QDAY 05/16/24 Unkno wn History clopidogrel 75 mg tablet 75 mg PO DAILY #90 TABLETS 0 03/14/25 Unknown Rx metoprolol tartrate 25 mg tablet 25 mg PO BID #180 tab s 05/09/25 Unknown Rx Allergy/AdvReac Type Severity Reaction Status Date / Time naproxen (From Aleve) Allergy Intermediate Itching Verified 06/01/25 12:40 tizanidine (From Zanaflex) Allergy Intermediate Rash Verified 06/01/25 12:40 ciprofloxacin HCl (From Allergy Shortness Verified 06/01/25 12:40 Cipro) of breath codeine Allergy Shortness Verified 06/01/25 12:40 of breath hydrocodone Allergy Shortness Verified 06/01/25 12:40 of breath ibuprofen (From Advil) Allergy Rash Verified 06/01/25 12:40 morphine Allergy Angioedema Verified 06/01/25 12:40 tizanidine HCl (From Allergy Rash Verified 06/01/25 12:40 Zanaflex) acetaminophen (From Vicodin) AdvReac Severe Anaphylaxis Verified 06/01/25 12:40 celecoxib (From Celebrex) AdvReac Intermediate Swelling Verified 06/01/25 12:40 cyproheptadine AdvReac Intermediate Hives Verified 06/01/25 12:40 Penicillins AdvReac Itching Verified 06/01/25 12:40 Family History Father Diabetes Grandmother Heart disease Grandfather Heart disease Mother Cancer Liver Surgical History Hx of cervical spine surgery Hx of section Hx of surgical procedure Hx of tracheostomy Hx of tubal ligation Social History Smoking Status: Current every day smoker tobacco type: cigarettes Electronic Cigarette Use: without nicotine alcohol intake: never substance use type: does not use caffeine: Yes Type: coffee Number of servings: 2 ROS Constitutional Constitutional: Reports chills, fatigue, fever(s), malaise and weakness; Denies anorexia Eyes Eyes: Denies change in vision ENT HEENT: Denies dysphagia, headache(s) or sore throat Cardiovascular Cardiovascular: Reports dyspnea on exertion; Denies chest pain, edema, lightheadedness, orthopnea, palpitations, paroxysmal nocturnal dyspnea, rapid heart rate or syncope Respiratory/Chest Respiratory/Chest: Reports cough, dyspnea, shortness of breath at rest and shortness of breath with exertion; Denies productive cough or wheezing Gastrointestinal Gastrointestinal: Reports abdominal pain; Denies constipation, diarrhea, nausea or vomiting Genitourinary Genitourinary: Denies dysuria Neurologic Neurologic: Denies dizziness, focal weakness, headache(s) or numbness Psychiatric Psychiatric: Denies anxiety Vital Signs Vital Signs Vital Signs: 06/01/25 12:40 06/01/25 12:47 06/01/25 12:48 Temperature 98.8 F 98.8 F Temperature Source Oral Oral Pulse Rate 94 92 Respiratory Rate 20 H 22 H Respiratory Effort Short of Breath Respiratory Pattern Tachypnea Blood Pressure 110/92 H 110/92 H Blood Pressure Mean 98 98 Pulse Ox 94 94 Oxygen Delivery Method Nasal Cannula Nasal Cannula Nasal Cannula Oxygen Flow Rate (L/min) 4 4 4 06/01/25 13:39 06/01/25 13:45 06/01/25 14:00 Temperature 98.8 F 98.8 F Temperature Source Oral Oral Pulse Rate 115 H 109 H 109 H Respiratory Rate 22 H 25 H 25 H Respiratory Effort Respiratory Pattern Blood Pressure 98/39 L 91/59 L 91/59 L Blood Pressure Mean 58 69 69 Pulse Ox 93 98 98 Oxygen Delivery Method Room Air Nasal Cannula Nasal Cannula Oxygen Flow Rate (L/min) 3 3 06/01/25 14:00 06/01/25 14:00 06/01/25 14:00 Temperature Temperature Source Pulse Rate 121 H 121 H Respiratory Rate 28 H Respiratory Effort Respiratory Pattern Blood Pressure 92/50 L Blood Pressure Mean 64 Pulse Ox 100 94 Oxygen Delivery Method Nasal Cannula Nasal Cannula Oxygen Flow Rate (L/min) 2.5 2 06/01/25 15:00 06/01/25 15:00 06/01/25 16:00 Temperature 98.8 F Temperature Source Oral Pulse Rate 74 124 H 125 H Respiratory Rate 16 20 H Respiratory Effort Respiratory Pattern Blood Pressure 97/66 97/53 L 87/49 L Blood Pressure Mean 76 67 61 Pulse Ox 94 96 93 Oxygen Delivery Method Room Air Nasal Cannula Nasal Cannula Oxygen Flow Rate (L/min) 2 06/01/25 17:00 06/01/25 17:00 06/01/25 17:24 Temperature 98.8 F Temperature Source Oral Pulse Rate 120 H 120 H 119 H Respiratory Rate 24 H Respiratory Effort Respiratory Pattern Blood Pressure 88/49 L 88/49 L 97/61 Blood Pressure Mean 62 62 73 Pulse Ox 94 94 93 Oxygen Delivery Method Nasal Cannula Nasal Cannula Nasal Cannula Oxygen Flow Rate (L/min) 2 2 2 06/01/25 18:00 Temperature Temperature Source Pulse Rate 103 H Respiratory Rate Respiratory Effort Respiratory Pattern Blood Pressure 98/56 L Blood Pressure Mean 70 Pulse Ox 94 Oxygen Delivery Method Nasal Cannula Oxygen Flow Rate (L/min) 2 Weight Weight: 361 lb 12.457 oz Body Mass Index (BMI) 66.2 Physical Exam Const alert and oriented x3 General Appearance: cooperative HEENT normocephalic, head/scalp atraumatic and hearing grossly normal bilaterally Mouth: oral and palatal mucosa normal Eyes EOMs intact bilaterally and conjunctivae normal Neck supple and no JVD Resp Resp Narrative: moderately diminished breath sounds bibasally, no wheezes or crackles. On 2L of oxygen by nasal canula Cardio regular rate, regular rhythm, S1 normal heart sound, S2 normal heart sound and no murmurs GI normal to inspection, nondistended, normoactive bowel sounds, soft to palpation, non-tender and non-distended Extremity normal to inspection, full ROM and no clubbing, cyanosis or edema Neuro oriented x3 and moves all extremities Neuro Narrative: very lethargic, weak and frail, able to answer questions but with difficulty Sensorium / Orientation: awake and alert Results Lab / Micro Data 06/02/25 04:22 06/02/25 04:22 Labs: Laboratory Results - last 24 hr 06/01/25 12:45: WBC 17.2 H, RBC 4.29, Hgb 11.0 L, Hct 35.2 L, MCV 82.1, MCH 25.6 L, MCHC 31.3 L, RDW Std Deviation 60.1 H, RDW Coeff of Jordana 20.2 H, Plt Count 198, MPV 10.9, Immature Gran % (Auto) 0.200, Neut % (Auto) 95.4 H, Lymph % (Auto) 3.0 L, [place] % (Auto) 0.5, Eos % (Auto) 0.1, Baso % (Auto) 0.8, Absolute Neuts (auto) 16.4 H, Absolute Lymphs (auto) 0.52 L, Nucleated RBC % 0, Differential Comment COMMENT, Anisocytosis 1+, PT 15.0 H, INR 1.2, APTT 37.6 H, Sodium 137, Potassium 4.2, Chloride 99, Carbon Dioxide 22.8, Anion Gap 15, BUN 21 H, Creatinine 1.85 H, Estim Creat Clear Calc 54.35, Est GFR (MDRD) Non-Af 33 L, BUN/Creatinine Ratio 11.1, Glucose 87, Calcium 8.4, Total Bilirubin 1.28, AST 31, ALT 18, Alkaline Phosphatase 118 H, Troponin T High Sens 40 H, NT pro BNP II 6489 H, Total Protein 5.9, Albumin 3.4 L, Globulin 2.5, Albumin/Globulin Ratio 1.3, Lipase 10 L 06/01/25 15:42: Troponin T Hi Sens 2 Hr 38 H 06/01/25 15:51: Urine Color Nanda, Urine Clarity Cloudy, Urine pH 8.0, Ur Specific [place] 1.010, Urine Protein 30 H, Urine Glucose (UA) Normal, Urine Ketones Negative, Urine Occult Blood 250 H, Urine Nitrite Positive H, Urine Bilirubin 1 H, Urine Urobilinogen Normal, Ur Leukocyte Esterase 500 H, Urine RBC 5-10 SEEN, Urine WBC 10-25 SEEN, Ur Squamous Epith Cells 0-5 SEEN, Ur Transition Epith Cell 0-5 SEEN, Ur Renal Epithelial Cell 0-5 SEEN, Urine Bacteria 4+, Urine Mucus 0 SEEN 06/01/25 17:46: Lactic Acid 3.8 H* Micro: Microbiology 06/01/25 13:51 Mucosa - Nose SARS-CoV-2, Influenza & RSV (PCR) - Final ABG Data ABG results: ABG 06/01/25 14:49 Specimen Type THAI Sample Site Not entered VBG pH 7.39 VBG pO2 30 VBG HCO3 25 VBG Total CO2 27 VBG O2 Sat (Calc) 57 VBG Base Excess 0 POC Mix VBG pCO2 Pt Tmp 41.7 O2 Delivery Device Not entered Imaging Radiology Impression Chest X-Ray 06/01/25 13:46 IMPRESSION: Cardiomegaly with vascular congestion. No appreciable airspace consolidation or pleural effusion. Reading Location: [facility] Chest CTA 06/01/25 16:57 IMPRESSION: No central pulmonary arterial emboli. Inadequate evaluation of the segmental- subsegmental branches due to significant respiratory motion artifact and suboptimal IV contrast bolus timing. No airspace consolidation/edema, pneumothorax or pleural effusion. Ectatic caliber of central pulmonary vessels, may reflect pulmonary arterial hypertension. Reading Location: [facility] Assessment & Plan Assessment/Plan (1) UTI (urinary tract infection): (2) Sepsis: (3) Heart failure: PLAN: Plan #Sepsis due to UTI * Patient admitted with complaint of fever and chills as well as shortness of breath. * Urinalysis showed evidence of UTI with 4+ bacteria. Patient also became hypotensive which responded to fluids. She was however not given IV fluids per sepsis protocol as she also has heart failure. She received a total of 2 units of fluids in the ED * Admit to [facility]. Blood pressure has improved and is in the 100 systolic at time of review. proBNP is elevated at 6489 so we will hold off on aggressive IV fluid for now * Started on IV Zosyn. Get blood and urine cultures. Lactic acid was also elevated at 3.8 but expect will improve as patient was hydrated and is now on treatment for the UTI. Consult PT OT. Fall precautions. * repeat la ctic acid however trended upwards to 4.3. Patient given a bolus of normal saline 500cc x 1. #UTI: As above #Acute exacerbation of heart failure with unknown EF * proBNP also elevated at 6489. Chest x-ray showed evidence of fluid overload. CTA of the chest was negative for PE and showed no evidence of airspace consolidation or edema, pneumothorax or pleural effusion and ectatic caliber of central pulmonary vessels was present which may reflect pulmonary arterial hypertension * Diurese with IV Lasix 40 mg daily for now as blood pressure has been running on the lower side of normal due to the sepsis due to UTI. * Order 2D echo. Fluid restriction to 1500 cc daily. Titrate oxygen as needed to maintain saturation above 90%. #Hypothyroidism: On Synthroid #A-fib: * Hold metoprolol on account of hypotension. Her tachycardia has been normal sinus rhythm. * I looked back through her chart and she did have an echo from January [address] [facility] which showed EF of 62% with right ventricular systolic pressure 42 mmHg and sustained atrial fibrillation. * 2D echo has been ordered. #Benign essential hypertension: On metoprolol. Will hold on account of hypotension. #Hyperlipidemia: On statin #Bipolar depression: On brexpiprazole and Seroquel #Class III obesity: BMI 66.2. Complicates acute care, expected recovery and prognosis. DVT prophylaxis: Lovenox CODE STATUS: full code * Patient counseled extensively about different types of CODE STATUS including full code, DNR CCA and DNR CCA. * Patient elects to be full code. In the care of lethargic she was able to answer questions and says she has spoken to her daughter and they had decided that if her need for CPR and intubation was temporary then she would want pills but did not want long-term ventilator support. * Total [id number] time 16 minutes. Charges/Coding Visit Charges Inpatient E&M: 44043 Init Hosp L3 Procedures Hospitalists Procedures: 06757 Advncd Care Plan 30 Min
--- OUTSIDE RECORDS SUMMARY | 2025-06-01 19:23 | XMS RPT_ITS | CCD ---
Author Organization [facility] Care Team Providers Care Clinic Coordinator Name Role Phone OlivierLois Unavailable Unavailable PROVIDER, UNKNOWN Unavailable Unavailable Geovanny Nesbitt Unavailable Unavailable Dr. Nabila Watson Primary Care Provider Dr. Nabila Watson Referring Provider [phone] Friend, Dr. Martinez Attending Provider Unavailable Primary Care Provider Unavailcolton rivera Unavailable Primary Care Provider UnavailDr. Nabila Pennington Primary Care Provider [phone] Dr. Nabila Watson Referring Provider [phone] Filipe CONTRERAS, ACID DUMPER-C Cat Wahl Attending Provider [phone] ROMÁN CHANDLER Referring Unavailable RYAN CHAVARRIAIDANA Attending Unavailable ELMER LARRY Admitting Unavailable Nabila Watson MD Primary Care Provider Dr. Agustin Carrillo Attending Unavaila Geovanny Guajardo DO Primary Care Provider ANNETTE CHAVIS Primary Care Physician ANNETTE SAMANO [...] DR REUBEN BHAKTA Attending Unav ailable SAMANO SENIOR DESIGNER/ART DIRECTOR-[facility], [facility] Unavai labann COPPOLA DO, DR JOSEPH Attending Unavailable SAMANO SENIOR DESIGNER/ART DIRECTOR-MACHINES TECHNICIAN, [facility] Unavai labann YAP DO, FEMI M Consulting Unavailabl e KAPPER SENIOR DESIGNER/ART DIRECTOR-MACHINES TECHNICIAN, KEATON M Admitting Unavaila ble KAPPER SENIOR DESIGNER/ART DIRECTOR-MACHINES TECHNICIAN, KEATON M Admitting Unavaila ble ANGIE BULLARD, VALERIE Attending Unavailable ANGIE BULLARD, VALERIE Consulting Unavailable [facility], [facility] Care Alyssa Samano ACID DUMPER-C, [facility] Primary Care Provider Selwyn ACID DUMPER-C, Annette Attending Provider [phone] ElierYung garrett Attending Unavailable Nabila Watson Referring Unavailable Nabila Watson Primary Care Unavailable [place]wyn ACID DUMPER, [facility] Primary Care Unavailable Aileen Campos Attending Unavail able [place]wyn ACID DUMPER, Annette Referring Unavailable ElierYung garrett Referring Unavailable ElierYung garrett Attending Unavailable [place] ACID DUMPER, [facility] Unavailable [place]wyn ACID DUMPER, Annette Attending Unavailable [place] ACID DUMPER, [facility] Unavailable Allergies Allergy Classification Reported Allergen(s) Allergy Type Date of Onset Reaction(s) Facility (2 sources) Aspirin Drug Allergy 05-25-20 21 Itching [facility] (5 sources) Ciprofloxacin; Translations: [ciprofloxacin HCl] Drug Allergy 05-25-20 21 Shortness of breath [facility] (16 sources) Codeine; Translations: [CODEINE] Drug Allergy 01-18-20 13 Itching [facility] (4 sources) HYDROcodone Drug Allergy 05-25-20 21 Shortness of breath [facility] (16 sources) Ibuprofen; Translations: [IBUPROFEN] Drug Allergy 01-18-20 13 Rash [facility] (16 sources) Morphine; Translations: [MORPHINE] Drug Allergy 01-18-20 13 Anaphylaxis [facility] (5 sources) Penicillins; Translations: [Penicillins] Propensity to adverse reactions 05-25-20 21 Itching [facility] (12 sources) tiZANidine; Translations: [TIZANIDINE HCL] Drug Allergy 06-22-20 15 Rash [facility] (12 sources) Acetaminophen / HYDROcodone; Translations: [HYDROCODONE-ACETA MINOPHEN] Drug Allergy 01-18-20 13 Anaphylaxis [facility] Work Phone: (12 sources) Ciprofloxacin; Translations: [CIPROFLOXACIN] Drug Allergy 01-18-20 13 Hives, Redness of skin of face [facility] (7 sources) Naproxen; Translations: [NAPROXEN SODIUM] Drug Allergy 05-13-20 15 Itching [facility] (3 sources) Lactose; Translations: [LACTOSE] Drug Allergy 01-13-20 23 Diarrhea [facility] Other [facility] (3 sources) Acetaminophen; Translations: [acetaminophen] Drug Allergy 05-16-20 24 [facility] (3 sources) celecoxib; Translations: [celecoxib] Drug Allergy 05-16-20 24 Swelling (morphologic abnormality) [facility] (7 sources) Cyproheptadine; Translations: [cyproheptadine] Drug Allergy 05-16-20 24 Weal (disorder) [facility] (7 sources) Naproxen; Translations: [naproxen] Drug Allergy 05-16-20 24 Itching (finding) [facility] (4 sources) Penicillin; Translations: [penicillins] Drug Allergy itching [facility] (7 sources) tiZANidine; Translations: [tizanidine] Drug Allergy 05-16-20 24 itching, redness of skin, Rash [facility] (1 source) Penicillin; Translations: [penicillins] Drug Allergy itching [facility] (1 source) Acetaminophen Drug Allergy 05-16-20 [facility] (1 source) celecoxib Drug Allergy 05-16-20 [facility] (1 source) Codeine Drug Allergy 05-16-20 24 [facility] (1 source) Cyproheptadine Drug Allergy 05-16-20 [facility] (1 source) HYDROcodone Drug Allergy 05-16-20 [facility] (1 source) Ibuprofen Drug Allergy 05-16-20 [facility] (1 source) Morphine Drug Allergy 05-16-20 [facility] (1 source) Naproxen Drug Allergy 05-16-20 [facility] (1 source) tiZANidine Drug Allergy 05-16-20 [facility] Medications Current Medications Medication Drug [...] day(s), # 28 tab(s), 0 Refill(s), Pharmacy: [facility], Lumbar spinal stenosis, 157.5, cm, 01/23/25 [...] wheezing, # 18 gram(s), 1 Refill(s), Pharmacy: [facility], Acute bronchitis Chronic obstructive pulmonary disease [...] 0 Refill(s), 05/04/24 8:46:00 PM EDT, Pharmacy: [facility], 157, cm, 03/28/24 13:53:00 EDT, Height, 154.9, kg, 03/28/24 13:53:00 EDT, Dosing Weight Start Date: 04/24/24 Stop Date: 05/04/24 Status: Ordered cephalexin 500 mg oral capsule (1 source) Cephalosporin Antibacterial Start: 02-05-2025 End: 02-15-2025 cephalexin 500 mg oral capsule Dose : 500 mg = 1 cap(s), Oral, QID, X 10 day(s), # 40 cap(s), 0 Refill(s), 02/15/25 5:01:00 PM EDT, Pharmacy: [facility], 157.5, cm, 01/23/25 13:05:00 EDT, Height, [...] qDay, # 90 tab(s), 0 Refill(s), Pharmacy: [facility], 157, cm, 03/28/24 13:53:00 EDT, Height, kg, 03/28/24 13:53:00 EDT, Dosing Weight Start Date: 04/19/24 Status: Ordered Start: 04-26-2023 take 1 capsule by [facility] once daily as needed Cetirizine (All Day [...] Pain, # 200 gram(s), 5 Refill(s), Pharmacy: [facility], Gel, 157, cm, 10/18/24 9:46:00 EST, [...] QID, # 360 cap(s), 0 Refill(s), Pharmacy: [facility], 157, cm, 11/15/24 10:32:00 EDT, Height, [...] qDay, # 30 cap(s), 1 Refill(s), Pharmacy: [facility], 157, cm, 03/28/24 13:53:00 EDT, Height, [...] BID, # 12 gram(s), 6 Refill(s), Pharmacy: [facility], Chronic obstructive pulmonary disease (COPD), 157.5, [...] 3:56pm Start: 10-27-2015 take 1 capsule by [facility] once daily at bedtime gabapentin (NEURONTIN) 300 [...] Comment on above: Take 1 capsule by [facility] daily at bedtime. Qrvhzqna-Yubul-Sfw 2-C-D3-Kathrin (Ewhdtyih-Oqbojm-B sm With Vit D) 750-30-1,000-1 lq-kj-tqnm-mg Tablet (4 sources) Start: 05-06-2021 take 1 tablet by mouth once daily Bestxaxs-Bsjax-Lrl 2-C-D3-Kathrin (Zodrysyv-Vxxsvx-Axv With Vit D) 750-30-1,000-1 pp-sk-vmjb-mg Tablet Active 1 TABLET PO DAILY May 06, 2021 11:49am Start: 05-06-2021 Glucosam-Chond -Msm 2-C-D3-Kathrin (Upyesofp-Bbxkfm-Dcv With Vit D) 750-30-1,000-1 qu-mj-nauy-mg Tablet Active 1 {tbl} PO DAILY May 06, 2021 12:00am Start: 05-06-2021 take 1 tablet by ashlyn th once daily Sfojrgyt-Hsvry-Egq 2-C-D3-Kathrin (Hxbfmsrr-Qlsdgo-Klg With Vit D) 750-30-1,000-1 dm-zh-vldz-mg Tablet Active 1 TABLET PO DAILY May [...] 0 Refill(s), 05/04/24 8:44:00 PM EDT, Pharmacy: [facility], 157, cm, 03/28/24 13:53:00 EDT, Height, kg, 03/28/24 13:53:00 EDT, Dosing Weight Start Date: 04/24/24 Stop Date: 05/04/24 Status: Ordered hydroCHLOROthiazide 12.5 mg oral capsule (7 sources) Thiazide Diuretic Start: 04-19-2024 hydroCHLOROthiazide 12.5 mg oral capsule Dose : 12.5 mg = 1 cap(s), Oral, qDay, # 90 cap(s), 0 Refill(s), Pharmacy: [facility], 157, cm, 03/28/24 13:53:00 EDT, Height, [...] qDay, # 90 tab(s), 0 Refill(s), Pharmacy: [facility], 157, cm, 11/15/24 10:32:00 EDT, Height, kg, 11/15/24 10:32:00 EDT, Dosing Weight Start Date: 11/26/24 Status: Ordered Quantity: 90.0 Unit: tab(s) Repeat number: 1 Start: 04-19-2024 levothyroxine 50 mcg (0.05 mg) oral tablet Dose : 50 mcg = 1 tab(s), Oral, qDay, # 90 tab(s), 0 Refill(s), Pharmacy: [facility], 157, cm, 03/28/24 13:53:00 EDT, Height, kg, 03/28/24 13:53:00 EDT, Dosing Weight Start Date: 04/19/24 Status: Ordered Start: 05-13-2015 take 1 capsule by mo [facility] once daily Levothyroxine 50 mcg cap Indications: Acquired hypothyroidism Take 1 capsule by mouth once daily. 30 capsule 12 05/13/2015 Active Start: 05-02-2015 take 1 tablet by [facility] once daily Levothyroxine (Unithroid) 50 [...] Comment on above: Take 1 capsule by [facility] once daily. methocarbamol 750 mg oral tablet (18 sources) Muscle Relaxant Start: 11-15-2024 End: 02-13-2025 methocarbamol 750 mg oral tablet Dose : 750 mg = 1 tab(s), Oral, TID, PRN as needed for pain, X 30 day(s), # 90 tab(s), 2 Refill(s), 02/13/25 11:27:00 AM EDT, Pharmacy: [facility], Fibromyalgia Arthritis of both knees, 157, [...] TID, # 270 tab(s), 0 Refill(s), Pharmacy: [facility], 157.5, cm, 01/23/25 13:05:00 EDT, Height, kg, 01/23/25 13:05:00 EDT, Dosing Weight Start Date: 01/27/25 Stop Date: 04/27/25 Status: Ordered Quantity: 270.0 Unit: tab(s) Repeat number: 1 Start: 12-30-2024 oxybutynin 5 m g oral tablet Dose : 5 mg = 1 tab(s), Oral, BID, # 180 tab(s), 0 Refill(s), Pharmacy: [facility], 157, cm, 12/16/24 14:49:00 EDT, Height, kg, 12/16/24 14:39:00 EDT, Dosing Weight Start Date: 12/30/24 Status: Ordered Quantity: 180.0 Unit: tab(s) Repeat number: 1 Start: 04-19-2024 oxybutynin 5 m g oral tablet Dose : 5 mg = 1 tab(s), Oral, BID, # 180 tab(s), 0 Refill(s), Pharmacy: [facility], 157, cm, 03/28/24 13:53:00 EDT, Height, [...] BID, # 180 tab(s), 3 Refill(s), Pharmacy: [facility], 157, cm, 11/15/24 10:32:00 EDT, Height, [...] on above: Take 2 tablets by mo [facility] once daily for 5 days. pregabalin 75 mg oral capsule (4 sources) Start: 5 End: 5 pregabalin 75 mg oral capsule Dose : 75 mg = 1 cap(s), Oral, TID, # 90 cap(s), 2 Refill(s), Pharmacy: [facility], Fibromyalgia Arthritis of both knees, 157, [...] Start: 05-06-2021 take 1 capsule by mo [facility] once daily Pumpkin Seed Extract-Soy Germ (Azo Bladder Control) 300 mg Capsule Active 1 CAP PO DAILY May 06, 2021 12:00am QUEtiapine 50 mg oral tablet (7 sources) Atypical Antipsychotic Start: 04-26-2023 End: 06-14-2025 QUEtiapine 50 mg oral tablet Dose : 100 mg = 2 tab(s), Oral, qHS, # 180 tab(s), 1 Refill(s), Pharmacy: [facility], Bipolar disorder, 157, cm, 12/16/24 14:49:00 [...] 01, 2023 11:26am [facility] sertraline (ZOLOFT) 50 mg tablet [...] BID, # 180 tab(s), 0 Refill(s), Pharmacy: [facility], 157.5, cm, 01/23/25 13:05:00 EDT, Height, kg, 01/23/25 13:05:00 EDT, Dosing Weight Start Date: 01/27/25 Status: Ordered Quantity: 180.0 Unit: tab(s) Repeat number: 1 Start: 10-10-2024 Colestid 1 g o ral tablet Dose : 1 gram(s) = 1 tab(s), Oral, BID, # 180 tab(s), 0 Refill(s), Pharmacy: [facility], 157, cm, 03/28/24 13:53:00 EDT, Height, kg, 03/28/24 13:53:00 EDT, Dosing Weight Start Date: 10/10/24 Status: Ordered Quantity: 180.0 Unit: tab(s) Repeat number: 1 Start: 04-19-2024 Colestid 1 g o ral tablet Dose : 1 gram(s) = 1 tab(s), Oral, BID, # 180 tab(s), 0 Refill(s), Pharmacy: [facility], 157, cm, 03/28/24 13:53:00 EDT, Height, [...] Facility Urine Cultureon 02-01-2025 [facility] Proteus mirabilis [place] Count 25,000-50,000 Proteus mirabilis Proteus mirabilis Proteus [...] TMP SMX Islt CYNDY <=20 S Normal [facility] Comment on above: Performed By: #### L 400. #### [facility] [address] [place], [address] Bilirubin Test strip Ql (U)O rdered By: Annette Samano on 01-29-2025 Bilirubin Ql (U) Negative Negative [facility] Ketones Test strip Ql (U)Ord ered By: Annette Samano on 01-29-2025 Ketones Ql (U) Negative Negative [facility] Protein Test strip Ql (U)Ord ered By: Annette Samano on 01-29-2025 Protein Ql (U) Negative Negative [facility] Urinalysis, Routine (Dipstic k)on 01-29-2025 BILIRUBIN URINE Negative Normal Negative [facility] Comment on above: Order Comment: Urine , Random Performed By: #### L 400. #### [facility] [address] [place], [address] GLUCOSE, UR Normal Normal Normal [facility] Comment on above: Order Comment: Urine , Random Performed By: #### L 400. #### [facility] [address] [place], [address] KETONE UR Negative Normal Negative [facility] Comment on above: Order Comment: Urine , Random Performed By: #### L 400. #### [facility] [address] [place], [address] LEUK ESTERASE 100 /ul Abnormal Negative [facility] Comment on above: Order Comment: Urine , Random Performed By: #### L 400. #### [facility] [address] [place], [address] OCCULT BLOOD-UR Negative Normal Negative [facility] Comment on above: Order Comment: Urine , Random Performed By: #### L 400.2010, #### [facility] [address] [place], [address] pH UR 7.0 Normal 5.0 - 8.0 [facility] Comment on above: Order Comment: Urine , Random Performed By: #### L 400.2010, #### [facility] [address] [place], [address] PROT DIPSTX Negative Normal Negative [facility] Comment on above: Order Comment: Urine , Random Performed By: #### L 400.2010, #### [facility] [address] [place], [address] SP.GR. DIPSTX 1.010 Normal 1.002-1.030 [facility] Comment on above: Order Comment: Urine , Random Performed By: #### L 400.2010, #### [facility] [address] [place], [address] UROBILI Normal Normal Normal [facility] Comment on above: Order Comment: Urine , Random Performed By: #### L 400.2010, #### [facility] [address] [place], [address] Urine clarityOrdered By: Radha Samano on 01-29-2025 Clarity (U) Clear Normal Clear [facility] Comment on above: Order Comment: Urine , Random Performed By: #### L 400.2010, #### [facility] [address] [place], [address] Urine color determinationOrd ered By: Annette Samano on 01-29-2025 Color (U) Yellow Normal Yellow [facility] Comment on above: Order Comment: Urine , Random Performed By: #### L 400.2010, #### [facility] [address] [place], [place], [id number] Urine cultureOrdered By: Radha gaetano Samano on 01-29-2025 Bacteria identified Cx Nom (U) Proteus mirabilis Abnormal [facility] Bacteria identified Cx Nom (U) Proteus mirabilis#2 Abnormal [facility] Urine glucose detectionOrder ed By: Annette Samano on 01-29-2025 Glucose Ql (U) Normal mg/dl Normal [facility] Urine leukocyte esterase det ection by dipstickOrdered By: Annette Samano on 01-29-2025 Leukocyte esterase Test strip Ql (U) 100 /ul High Negative [facility] Urine nitrite test by dipsti ckOrdered By: Annette Samano on 01-29-2025 Nitrite Ql (U) Negative Normal Negative [facility] Comment on above: Order Comment: Urine , Random Performed By: #### L 400.2010, M100.0 #### [facility] [address] [place] [address], [id number] Urine pHOrdered By: Annette crowe on 01-29-2025 pH (U) 7.0 [pH] 5.0 - 8.0 [facility] Urine specific gravity measu rementOrdered By: Annette Samano on 01-29-2025 Specific gravity (U) [Rel density] 1.010 1.002-1.030 [facility] Urine urobilinogen measureme ntOrdered By: Annette Samano on 01-29-2025 Urobilinogen Ql (U) Normal mg/dl Normal [facility] LABORATORYOrdered By: Noreen Wetzel on 01-14-2025 [...] Probable Contamination. Suggest recollection if clinically indicated. [facility] UAon 01-14-2025 Color (U) Yellow Normal [facility] Comment on above: Performed By: #### U AMIC, UA #### [address] [address] Glucose (U) [Mass/Vol] Negative Normal Negative [facility] Comment on above: Performed By: #### U AMIC, UA #### [facility] [address] [place], [place] [address] Ketones Ql (U) Negative Normal Negative [facility] Comment on above: Performed By: #### U AMIC, UA #### [place] [address] UA Appear Cloudy Abnormal Clear [facility] Comment on above: Performed By: #### U AMIC, UA #### [address] [address] UA Blood Moderate Abnormal Negative [facility] Comment on above: Performed By: #### U AMIC, UA #### [address] [address] UA Leuk Est Moderate Abnormal Negative [facility] Comment on above: Performed By: #### U AMIC, UA #### [place] [address] UA Nitrite Positive Abnormal Negative [facility] Comment on above: Performed By: #### U AMIC, UA #### [place] [address] UA pH 7.5 Normal 5.0 - 8.0 [facility] Comment on above: Performed By: #### U AMIC, UA #### [place] [address] UA Protein 30 mg/dL Normal Negative [facility] Comment on above: Performed By: #### U AMIC, UA #### [address] [address] UA Spec Grav 1.015 Normal 1.015-1.025 [facility] Comment on above: Performed By: #### U AMIC, UA #### [address] [address] UA Specimen Type Clean Catch Normal [facility] Comment on above: Performed By: #### U AMIC, UA #### [place] [address] UA Urobilinogen 0.2 E.U./dL Normal 0.2-1.0 [facility] Comment on above: Performed By: #### U AMIC, UA #### [address] [address] Urobilinogen (U) [Mass/Vol] Negative Normal Negative [facility] Comment on above: Performed By: #### U AMIC, UA #### [address] [address] UAMICon 01-14-2025 UA Amorphus 2+ /hpf Normal [facility] Comment on above: Performed By: #### U AMIC, UA #### [address] [address] UA Bacteria 4+ /hpf Abnormal Negative [facility] Comment on above: Performed By: #### U AMIC, UA #### [address] [address] UA CA Ox Crystal Trace Normal [facility] Comment on above: Performed By: #### U AMIC, UA #### [place] [address] UA RBC 3-5 Abnormal 0-2 [facility] Comment on above: Performed By: #### U AMIC, UA #### [address] [address] UA Squam Epithelial 25-50 Abnormal 0-20 [facility] Comment on above: Performed By: #### U AMIC, UA #### [address] [address] UA WBC LOADED Abnormal 0-5 [facility] Comment on above: Performed By: #### U AMIC, UA #### [address] [address] .Auto Diffon 01-09-2025 Basophil, Absolute 0.1 10 3/mcL Normal 0.0-0.3 [facility] Comment on above: Performed By: #### A DIFF, ANEU, CBC #### [facility] [address] [place] [address] Basophils/100 WBC (Bld) 0.7 % Normal 0.0-2.5 [facility] Comment on above: Performed By: #### A DIFF, ANEU, CBC #### [address] [address] Eosinophil, Absolute 0.4 10 3/mcL Normal 0.0-0.7 [facility] Comment on above: Performed By: #### A DIFF, ANEU, CBC #### [address] [address] Eosinophils/100 WBC (Bld) 3.3 % Normal 0.0-6.0 [facility] Comment on above: Performed By: #### A DIFF, ANEU, CBC #### [address] [address] Lymphocyte, Absolute 2.4 10 3/mcL Normal 0.9-4.3 [facility] Comment on above: Performed By: #### A DIFF, ANEU, CBC #### [address] [address] Lymphocytes/100 WBC (Bld) 21.9 % Normal 20.0-40.0 [facility] Comment on above: Performed By: #### A DIFF, ANEU, CBC #### [address] [address] Monocyte, Absolute 0.9 10 3/mcL Normal 0.1-1.4 [facility] Comment on above: Performed By: #### A DIFF, ANEU, CBC #### [address] [address] Monocytes/100 WBC (Bld) 8.4 % Normal 2.0-13.0 [facility] Comment on above: Performed By: #### A DIFF, ANEU, CBC #### [address] [address] Neutrophils/100 WBC (Bld) 65.7 % Normal 50.0-75.0 [facility] Comment on above: Performed By: #### A DIFF, ANEU, CBC #### [address] [address] .GFRon 01-09-2025 Estimated Glomerular Filtration Rate 111 ml/min/1.73sqm Normal [facility] Comment on above: Result Comment: Stages [...] By: #### A DIFF, ANEU, CBC #### [address] [address] .NEUABSon 01-09-2025 Neutrophil, Absolute 7.3 10 3/mcL Normal 2.3-8.1 [facility] Comment on above: Performed By: #### A DIFF, ANEU, CBC #### [address] [address] BMPon 01-09-2025 BUN/Creatinine Ratio 26.8 ratio High 10.0-22.0 [facility] Comment on above: Performed By: #### A DIFF, ANEU, CBC #### [address] [address] Calcium [Mass/Vol] 9.0 mg/dL Normal 8.7-10.4 [facility] Comment on above: Performed By: #### A DIFF, ANEU, CBC #### [address] [address] Chloride [Moles/Vol] 106 mmol/L Normal 98-110 [facility] Comment on above: Performed By: #### A DIFF, ANEU, CBC #### [address] [address] CO2 [Moles/Vol] 27 mmol/L Normal 22-32 [facility] Comment on above: Performed By: #### A DIFF, ANEU, CBC #### [address] [address] Creatinine [Mass/Vol] 0.56 mg/dL Normal 0.50-1.20 [facility] Comment on above: Result Comment: Test ing performed on [employer] CH analyzer using enzymatic creatinine methodology. Performed By: #### A DIFF, ANEU, CBC #### [address] [address] Electrolyte Balance 8.0 mEq/L Normal 4.0-15.0 [facility] Comment on above: Performed By: #### A DIFF, ANEU, CBC #### [address] [address] Glucose [Mass/Vol] 98 mg/dL Normal 70-110 [facility] Comment on above: Performed By: #### A DIFF, ANEU, CBC #### [address] [address] Potassium [Moles/Vol] 3.9 mmol/L Normal 3.5-5.0 [facility] Comment on above: Performed By: #### A DIFF, ANEU, CBC #### [address] [address] Sodium [Moles/Vol] 141 mmol/L Normal 136-145 [facility] Comment on above: Performed By: #### A DIFF, ANEU, CBC #### [address] [address] Urea nitrogen [Mass/Vol] 15.0 mg/dL Normal 8.0-22.0 [facility] Comment on above: Performed By: #### A DIFF, ANEU, CBC #### [address] [address] [facility] Erythrocyte distribution width (RBC) [Ratio] 17.6 % High 11.5-15.5 [facility] Comment on above: Performed By: #### A DIFF, ANEU, CBC #### [address] [address] Hematocrit (Bld) [Volume fraction] 32.0 % Low 34.0-46.0 [facility] Comment on above: Performed By: #### A DIFF, ANEU, CBC #### [address] [address] Hgb 10.6 G/dL Low 12.0-16.0 [facility] Comment on above: Performed By: #### A DIFF, ANEU, CBC #### [place] [id number] MCH (RBC) [Entitic mass] 28.0 pg Normal 27.0-33.0 [facility] Comment on above: Performed By: #### A DIFF, ANEU, CBC #### [place] [address] MCHC 33.0 G/dL Normal 32.0-36.0 [facility] Comment on above: Performed By: #### A DIFF ANEU, CBC #### [place] [address] MCV (RBC) [Entitic vol] 84.8 fL Normal 80.0-99.0 [facility] Comment on above: Performed By: #### A DIFF ANEU, CBC #### [place] [address] Platelet 342 10 3/mcL Normal 150-450 [facility] Comment on above: Performed By: #### A DIFF ANEU, CBC #### [place] [address] Platelet mean volume (Bld) [Entitic vol] 8.2 fL Normal 6.6-10.5 [facility] [facility] Comment on above: Performed By: #### A DIFF ANEU, CBC #### [place] [address] RBC 3.78 10 6/mcL Low 4.10-5.30 [facility] MAIN Comment on above: Performed By: #### A DIFF, ANEU, CBC #### [place] [address] WBC 11.2 10 3/mcL High 4.5-10.8 [facility] MAIN Comment on above: Performed By: #### A DIFF ANEU, CBC #### [place] [address] LABORATORYOrdered By: Kaykay Pierson on 01-09-2025 Beta HCG ( test) Ql (U) Negative (01/09/25 8:10 AM) [facility] LABORATORYOrdered By: [employer] SYSTEM on 01-09-2025 Basophils (Bld) [#/Vol] 0.1 [...] above: Interpretive Data: T esting performed on [employer] analyzer using enzymatic creatinine methodology. Electrolyte Balance [...] Basophil, Absolute 0.1 10 3/mcL Normal 0.0-0.3 [facility] MAIN Comment on above: Performed By: #### C BC, ANEU, BMP, ADIFF, GFR #### [address] [address] Basophils/100 WBC (Bld) 0.7 % Normal 0.0-2.5 [facility] Comment on above: Performed By: #### C BC, ANEU, BMP, ADIFF, GFR #### [address] [address] Eosinophil, Absolute 0.3 10 3/mcL Normal 0.0-0.7 [facility] MAIN Comment on above: Performed By: #### C BC, ANEU, BMP, ADIFF, GFR #### [address] [address] Eosinophils/100 WBC (Bld) 2.7 % Normal 0.0-6.0 [facility] MA[facility] Comment on above: Performed By: #### C BC, ANEU, BMP, ADIFF, GFR #### [address] [address] Lymphocyte, Absolute 1.9 10 3/mcL Normal 0.9-4.3 [facility] MAIN Comment on above: Performed By: #### C BC, ANEU, BMP, ADIFF, GFR #### [address] [address] Lymphocytes/100 WBC (Bld) 18.5 % Low 20.0-40.0 [facility] MA[facility] Comment on above: Performed By: #### C BC, ANEU, BMP, ADIFF, GFR #### [address] [address] Monocyte, Absolute 0.8 10 3/mcL Normal 0.1-1.4 [facility] MAIN Comment on above: Performed By: #### C BC, ANEU, BMP, ADIFF, GFR #### [address] [address] Monocytes/100 WBC (Bld) 7.6 % Normal 2.0-13.0 [facility] Comment on above: Performed By: #### C BC, ANEU, BMP, ADIFF, GFR #### [address] [address] Neutrophils/100 WBC (Bld) 70.5 % Normal 50.0-75.0 [facility] MA[facility] Comment on above: Performed By: #### C BC, ANEU, BMP, ADIFF, GFR #### [address] [address] .GFRon 01-08-2025 Estimated Glomerular Filtration Rate 112 ml/min/1.73sqm Normal [facility] MAIN Comment on above: Result Comment: Stages [...] By: #### A DIFF, ANEU, CBC #### [address] [address] .NEUABSon 01-08-2025 Neutrophil, Absolute 7.3 10 3/mcL Normal 2.3-8.1 [facility] MAIN Comment on above: Performed By: #### C BC, ANEU, BMP, ADIFF, GFR #### [address] [address] BMPon 01-08-2025 BUN/Creatinine Ratio 27.8 ratio High 10.0-22.0 [facility] MAIN Comment on above: Performed By: #### A DIFF, ANEU, CBC #### [address] [address] Calcium [Mass/Vol] 9.1 mg/dL Normal 8.7-10.4 [facility] MAIN Comment on above: Performed By: #### A DIFF, ANEU, CBC #### [address] [address] Chloride [Moles/Vol] 105 mmol/L Normal 98-110 [facility] MAIN Comment on above: Performed By: #### A DIFF, ANEU, CBC #### [address] [address] CO2 [Moles/Vol] 29 mmol/L Normal 22-32 [facility] MAIN Comment on above: Performed By: #### A DIFF, ANEU, CBC #### [address] [address] Creatinine [Mass/Vol] 0.54 mg/dL Normal 0.50-1.20 [facility] MAIN Comment on above: Result Comment: Test ing performed on [employer] analyzer using enzymatic creatinine methodology. Performed By: #### A DIFF, ANEU, CBC #### [address] [address] Electrolyte Balance 6.0 mEq/L Normal 4.0-15.0 [facility] MAIN Comment on above: Performed By: #### A DIFF, ANEU, CBC #### [address] [address] Glucose [Mass/Vol] 123 mg/dL High 70-110 [facility] MAIN Comment on above: Performed By: #### A DIFF, ANEU, CBC #### [address] [address] Potassium [Moles/Vol] 3.8 mmol/L Normal 3.5-5.0 [facility] MAIN Comment on above: Performed By: #### A DIFF, ANEU, CBC #### [address] [address] Sodium [Moles/Vol] 140 mmol/L Normal 136-145 [facility] MAIN Comment on above: Performed By: #### A DIFF, ANEU, CBC #### [address] [address] Urea nitrogen [Mass/Vol] 15.0 mg/dL Normal 8.0-22.0 [facility] MAIN Comment on above: Performed By: #### A DIFF, ANEU, CBC #### [address] [address] CBCon 01-08-2025 Erythrocyte distribution width (RBC) [Ratio] 18.1 % High 11.5-15.5 [facility] Comment on above: Performed By: #### C BC, ANEU, BMP, ADIFF, GFR #### [place] [address] Hematocrit (Bld) [Volume fraction] 32.5 % Low 34.0-46.0 [facility] MA[facility] Comment on above: Performed By: #### C BC, ANEU, BMP, ADIFF, GFR #### [place] [address] Hgb 10.5 G/dL Low 12.0-16.0 [facility] MAIN Comment on above: Performed By: #### C BC, ANEU, BMP, ADIFF, GFR #### [place] [address] MCH (RBC) [Entitic mass] 27.9 pg Normal 27.0-33.0 [facility] Comment on above: Performed By: #### C BC, ANEU, BMP, ADIFF, GFR #### [place] [address] MCHC 32.4 G/dL Normal 32.0-36.0 [facility] MA[facility] Comment on above: Performed By: #### C BC, ANEU, BMP, ADIFF, GFR #### [place] [address] MCV (RBC) [Entitic vol] 86.3 fL Normal 80.0-99.0 [facility] Comment on above: Performed By: #### C BC, ANEU, BMP, ADIFF, GFR #### [place] [address] Platelet 320 10 3/mcL Normal 150-450 [facility] MAIN Comment on above: Performed By: #### C BC, ANEU, BMP, ADIFF, GFR #### [place] [address] Platelet mean volume (Bld) [Entitic vol] 8.2 fL Normal 6.6-10.5 [facility] MAIN Comment on above: Performed By: #### C BC, ANEU, BMP, ADIFF, GFR #### [place] [address] RBC 3.76 10 6/mcL Low 4.10-5.30 [facility] MAIN Comment on above: Performed By: #### C BC, ANEU, BMP, ADIFF, GFR #### [facility] [address] [place] [address] WBC 10.3 10 3/mcL Normal 4.5-10.8 [facility] MAIN Comment on above: Performed By: #### C BC, ANEU, BMP, ADIFF, GFR #### [place] [id number] [place] [address] LABORATORYOrdered By: SYSTEM SYSTEM on 01-08-2025 Basophils [...] above: Interpretive Data: T esting performed on [employer] analyzer using enzymatic creatinine methodology. Electrolyte [...] Basophil, Absolute 0.1 10 3/mcL Normal 0.0-0.3 [facility] MAIN Comment on above: Performed By: #### A DIFF, ANEU, CBC #### [address] [address] Basophils/100 WBC (Bld) 0.7 % Normal 0.0-2.5 [facility] Comment on above: Performed By: #### A DIFF, ANEU, CBC #### [address] [address] Eosinophil, Absolute 0.3 10 3/mcL Normal 0.0-0.7 [facility] MAIN Comment on above: Performed By: #### A DIFF, ANEU, CBC #### [address] [address] Eosinophils/100 WBC (Bld) 3.0 % Normal 0.0-6.0 [facility] MA[facility] Comment on above: Performed By: #### A DIFF, ANEU, CBC #### [address] [address] Lymphocyte, Absolute 2.6 10 3/mcL Normal 0.9-4.3 [facility] MAIN Comment on above: Performed By: #### A DIFF, ANEU, CBC #### [address] [address] Lymphocytes/100 WBC (Bld) 23.4 % Normal 20.0-40.0 [facility] MA[facility] Comment on above: Performed By: #### A DIFF, ANEU, CBC #### [address] [address] Monocyte, Absolute 0.9 10 3/mcL Normal 0.1-1.4 [facility] MAIN Comment on above: Performed By: #### A DIFF, ANEU, CBC #### [address] [address] Monocytes/100 WBC (Bld) 7.9 % Normal 2.0-13.0 [facility] Comment on above: Performed By: #### A DIFF, ANEU, CBC #### [address] [address] Neutrophils/100 WBC (Bld) 65.0 % Normal 50.0-75.0 [facility] MA[facility] Comment on above: Performed By: #### A DIFF, ANEU, CBC #### [address] [address] .NEUABSon 01-07-2025 Neutrophil, Absolute 7.2 10 3/mcL Normal 2.3-8.1 [facility] MAIN Comment on above: Performed By: #### A DIFF, ANEU, CBC #### [place] [address] CBCon 01-07-2025 Erythrocyte distribution width (RBC) [Ratio] 17.6 % High 11.5-15.5 [facility] MAIN Comment on above: Performed By: #### A DIFF, ANEU, CBC #### [place] [address] Hematocrit (Bld) [Volume fraction] 30.6 % Low 34.0-46.0 [facility] MAIN Comment on above: Performed By: #### A DIFF, ANEU, CBC #### [place] [address] Hgb 9.8 G/dL Low 12.0-16.0 [facility] MAIN Comment on above: Performed By: #### A DIFF, ANEU, CBC #### [place] [address] MCH (RBC) [Entitic mass] 27.7 pg Normal 27.0-33.0 [facility] MAIN Comment on above: Performed By: #### A DIFF, ANEU, CBC #### [place] [address] MCHC 32.1 G/dL Normal 32.0-36.0 [facility] MAIN Comment on above: Performed By: #### A DIFF, ANEU, CBC #### [address] [address] MCV (RBC) [Entitic vol] 86.3 fL Normal 80.0-99.0 [facility] Comment on above: Performed By: #### A DIFF, ANEU, CBC #### [place] [id number] Platelet 320 10 3/mcL Normal 150-450 [facility] MAIN Comment on above: Performed By: #### A DIFF, ANEU, CBC #### [place] [address] Platelet mean volume (Bld) [Entitic vol] 8.5 fL Normal 6.6-10.5 [facility] MAIN Comment on above: Performed By: #### A DIFF, ANEU, CBC #### [place] [address] RBC 3.54 10 6/mcL Low 4.10-5.30 [facility] MAIN Comment on above: Performed By: #### A DIFF, ANEU, CBC #### [place] [address] WBC 11.1 10 3/mcL High 4.5-10.8 [facility] MAIN Comment on above: Performed By: #### A DIFF, ANEU, CBC #### [place] [address] LABORATORYOrdered By: SYSTEM SYSTEM on 01-07-2025 Basophils [...] Basophil, Absolute 0.1 10 3/mcL Normal 0.0-0.3 [facility] MAIN Comment on above: Performed By: #### C BC, ANEU, BMP, ADIFF, GFR #### [facility] [address] [place] [address] Basophils/100 WBC (Bld) 0.9 % Normal 0.0-2.5 [facility] Comment on above: Performed By: #### C BC, ANEU, BMP, ADIFF, GFR #### [address] [address] Eosinophil, Absolute 0.3 10 3/mcL Normal 0.0-0.7 [facility] MAIN Comment on above: Performed By: #### C BC, ANEU, BMP, ADIFF, GFR #### [address] [address] Eosinophils/100 WBC (Bld) 2.8 % Normal 0.0-6.0 [facility] MA[facility] Comment on above: Performed By: #### C BC, ANEU, BMP, ADIFF, GFR #### [address] [address] Lymphocyte, Absolute 2.5 10 3/mcL Normal 0.9-4.3 [facility] MAIN Comment on above: Performed By: #### C BC, ANEU, BMP, ADIFF, GFR #### [address] [address] Lymphocytes/100 WBC (Bld) 21.2 % Normal 20.0-40.0 [facility] MAIN Comment on above: Performed By: #### C BC, ANEU, BMP, ADIFF, GFR #### [address] [address] Monocyte, Absolute 1.0 10 3/mcL Normal 0.1-1.4 [facility] MAIN Comment on above: Performed By: #### C BC, ANEU, BMP, ADIFF, GFR #### [address] [address] Monocytes/100 WBC (Bld) 8.3 % Normal 2.0-13.0 [facility] Comment on above: Performed By: #### C BC, ANEU, BMP, ADIFF, GFR #### [address] [address] Neutrophils/100 WBC (Bld) 66.8 % Normal 50.0-75.0 [facility] MAIN Comment on above: Performed By: #### C BC, ANEU, BMP, ADIFF, GFR #### [address] [address] .GFRon 01-06-2025 Estimated Glomerular Filtration Rate 104 ml/min/1.73sqm Normal [facility] MAIN Comment on above: Result Comment: Stages [...] C BC, ANEU, BMP, ADIFF, GFR #### [address] [address] .NEUABSon 01-06-2025 Neutrophil, Absolute 7.8 10 3/mcL Normal 2.3-8.1 [facility] MAIN Comment on above: Performed By: #### C BC, ANEU, BMP, ADIFF, GFR #### [address] [address] [facility] 01-06-2025 BUN/Creatinine Ratio 18.3 ratio Normal 10.0-22.0 [facility] MAIN Comment on above: Performed By: #### C BC, ANEU, BMP, ADIFF, GFR #### [address] [address] Calcium [Mass/Vol] 9.3 mg/dL Normal 8.7-10.4 [facility] MAIN Comment on above: Performed By: #### C BC, ANEU, BMP, ADIFF, GFR #### [address] [address] Chloride [Moles/Vol] 105 mmol/L Normal 98-110 [facility] MAIN Comment on above: Performed By: #### C BC, ANEU, BMP, ADIFF, GFR #### [address] [address] CO2 [Moles/Vol] 32 mmol/L Normal 22-32 [facility] MAIN Comment on above: Performed By: #### C BC, ANEU, BMP, ADIFF, GFR #### [address] [address] Creatinine [Mass/Vol] 0.71 mg/dL Normal 0.50-1.20 [facility] MAIN Comment on above: Result Comment: Test ing performed on [employer] analyzer using enzymatic creatinine methodology. Performed By: #### C BC, ANEU, BMP, ADIFF, GFR #### [address] [address] Electrolyte Balance 4.0 mEq/L Normal 4.0-15.0 [facility] MAIN Comment on above: Performed By: #### C BC, ANEU, BMP, ADIFF, GFR #### [address] [address] Glucose [Mass/Vol] 104 mg/dL Normal 70-110 [facility] MAIN Comment on above: Performed By: #### C BC, ANEU, BMP, ADIFF, GFR #### [place] [id number] Potassium [Moles/Vol] 4.3 mmol/L Normal 3.5-5.0 [facility] MAIN Comment on above: Performed By: #### C BC, ANEU, BMP, ADIFF, GFR #### [place] [id number] Sodium [Moles/Vol] 141 mmol/L Normal 136-145 [facility] MAIN Comment on above: Performed By: #### C BC, ANEU, BMP, ADIFF, GFR #### [address] [address] Urea nitrogen [Mass/Vol] 13.0 mg/dL Normal 8.0-22.0 [facility] MAIN Comment on above: Performed By: #### C BC, ANEU, BMP, ADIFF, GFR #### [address] [address] CBCon 01-06-2025 Erythrocyte distribution width (RBC) [Ratio] 18.2 % High 11.5-15.5 [facility] MAIN Comment on above: Performed By: #### C BC, ANEU, BMP, ADIFF, GFR #### [place] [address] Hematocrit (Bld) [Volume fraction] 30.2 % Low 34.0-46.0 [facility] MAIN Comment on above: Performed By: #### C BC, ANEU, BMP, ADIFF, GFR #### [place] [address] Hgb 9.8 G/dL Low 12.0-16.0 [facility] MAIN Comment on above: Performed By: #### C BC, ANEU, BMP, ADIFF, GFR #### [place] [address] MCH (RBC) [Entitic mass] 28.1 pg Normal 27.0-33.0 [facility] MAIN Comment on above: Performed By: #### C BC, ANEU, BMP, ADIFF, GFR #### [place] [address] MCHC 32.3 G/dL Normal 32.0-36.0 [facility] MAIN Comment on above: Performed By: #### C BC, ANEU, BMP, ADIFF, GFR #### [place] [address] MCV (RBC) [Entitic vol] 86.9 fL Normal 80.0-99.0 [facility] Comment on above: Performed By: #### C BC, ANEU, BMP, ADIFF, GFR #### [place] [address] Platelet 294 10 3/mcL Normal 150-450 [facility] MAIN Comment on above: Performed By: #### C BC, ANEU, BMP, ADIFF, GFR #### [place] [address] Platelet mean volume (Bld) [Entitic vol] 8.3 fL Normal 6.6-10.5 [facility] MAIN Comment on above: Performed By: #### C BC, ANEU, BMP, ADIFF, GFR #### [place] [address] RBC 3.48 10 6/mcL Low 4.10-5.30 [facility] MAIN Comment on above: Performed By: #### C BC, ANEU, BMP, ADIFF, GFR #### [facility] [address] [place] [address] WBC 11.7 10 3/mcL High 4.5-10.8 [facility] MAIN Comment on above: Performed By: #### C BC, ANEU, BMP, ADIFF, GFR #### [facility] [address] [place] [address] LABORATORYOrdered By: SYSTEM SYSTEM on 01-06-2025 Calcium [Mass/Vol] 9.3 mg/dL Normal 8.7 - 10. 4 mg/dL ADM SS Chloride [Moles/Vol] 105 mmol/L Normal 98 - 11 0 mEq/L ADM SS CO2 [Moles/Vol] 32 mmol/L Normal 22 - 32 mEq/L AH ADM SS Creatinine [Mass/Vol] 0.71 mg/dL Normal 0.50 - 1.20 mg/dL AH ADM SS Comment on above: Interpretive Data: T esting performed on [employer] analyzer using enzymatic creatinine methodology. Electrolyte Balance [...] Basophil, Absolute 0.1 10 3/mcL Normal 0.0-0.3 [facility] MAIN Comment on above: Performed By: #### A DIFF, ANEU, CBC #### [address] [address] Basophils/100 WBC (Bld) 1.0 % Normal 0.0-2.5 [facility] Comment on above: Performed By: #### A DIFF, ANEU, CBC #### [address] [address] Eosinophil, Absolute 0.4 10 3/mcL Normal 0.0-0.7 [facility] MAIN Comment on above: Performed By: #### A DIFF, ANEU, CBC #### [address] [address] Eosinophils/100 WBC (Bld) 3.4 % Normal 0.0-6.0 [facility] MAIN Comment on above: Performed By: #### A DIFF, ANEU, CBC #### [address] [address] Lymphocyte, Absolute 3.0 10 3/mcL Normal 0.9-4.3 [facility] MAIN Comment on above: Performed By: #### A DIFF, ANEU, CBC #### [address] [address] Lymphocytes/100 WBC (Bld) 26.6 % Normal 20.0-40.0 [facility] MAIN Comment on above: Performed By: #### A DIFF, ANEU, CBC #### [address] [address] Monocyte, Absolute 0.7 10 3/mcL Normal 0.1-1.4 [facility] MAIN Comment on above: Performed By: #### A DIFF, ANEU, CBC #### [address] [address] Monocytes/100 WBC (Bld) 6.5 % Normal 2.0-13.0 [facility] Comment on above: Performed By: #### A DIFF ANEU, CBC #### [address] [address] Neutrophils/100 WBC (Bld) 62.5 % Normal 50.0-75.0 [facility] MAIN Comment on above: Performed By: #### A DIFF ANEU, CBC #### [address] [address] .GFRon 01-04-2025 Estimated Glomerular Filtration Rate 110 ml/min/1.73sqm Normal [facility] MAIN Comment on above: Result Comment: Stages [...] By: #### A DIFF ANEU, CBC #### [address] [address] .NEUABSon 01-04-2025 Neutrophil, Absolute 7.0 10 3/mcL Normal 2.3-8.1 [facility] MAIN Comment on above: Performed By: #### A DIFF ANEU, CBC #### [address] [address] BMPon 01-04-2025 BUN/Creatinine Ratio 24.1 ratio High 10.0-22.0 [facility] MAIN Comment on above: Performed By: #### A DIFF ANEU, CBC #### [address] [address] Calcium [Mass/Vol] 8.7 mg/dL Normal 8.7-10.4 [facility] MAIN Comment on above: Performed By: #### A DIFF, ANEU, CBC #### [address] [address] Chloride [Moles/Vol] 106 mmol/L Normal 98-110 [facility] MAIN Comment on above: Performed By: #### A DIFF, ANEU, CBC #### [address] [address] CO2 [Moles/Vol] 29 mmol/L Normal 22-32 [facility] MAIN Comment on above: Performed By: #### A DIFF, ANEU, CBC #### [address] [address] Creatinine [Mass/Vol] 0.58 mg/dL Normal 0.50-1.20 [facility] MAIN Comment on above: Result Comment: Test ing performed on [employer] analyzer using enzymatic creatinine methodology. Performed By: #### A DIFF ANEU, CBC #### [address] [address] Electrolyte Balance 5.0 mEq/L Normal 4.0-15.0 [facility] MAIN Comment on above: Performed By: #### A DIFF, ANEU, CBC #### [address] [address] Glucose [Mass/Vol] 99 mg/dL Normal 70-110 [facility] MAIN Comment on above: Performed By: #### A DIFF, ANEU, CBC #### [address] [address] Potassium [Moles/Vol] 4.0 mmol/L Normal 3.5-5.0 [facility] MAIN Comment on above: Performed By: #### A DIFF, ANEU, CBC #### [address] [address] Sodium [Moles/Vol] 140 mmol/L Normal 136-145 [facility] MAIN Comment on above: Performed By: #### A DIFF, ANEU, CBC #### [address] [address] Urea nitrogen [Mass/Vol] 14.0 mg/dL Normal 8.0-22.0 [facility] MAIN Comment on above: Performed By: #### A DIFF, ANEU, CBC #### [address] [address] CBCon 01-04-2025 Erythrocyte distribution width (RBC) [Ratio] 17.0 % High 11.5-15.5 [facility] MAIN Comment on above: Performed By: #### A DIFF, ANEU, CBC #### [place] [address] Hematocrit (Bld) [Volume fraction] 29.4 % Low 34.0-46.0 [facility] MAIN Comment on above: Performed By: #### A DIFF, ANEU, CBC #### [place] [address] Hgb 9.3 G/dL Low 12.0-16.0 [facility] MAIN Comment on above: Performed By: #### A DIFF, ANEU, CBC #### [place] [address] MCH (RBC) [Entitic mass] 27.6 pg Normal 27.0-33.0 [facility] MAIN Comment on above: Performed By: #### A DIFF, ANEU, CBC #### [place] [address] MCHC 31.8 G/dL Low 32.0-36.0 [facility] MAIN Comment on above: Performed By: #### A DIFF, ANEU, CBC #### [place] [address] MCV (RBC) [Entitic vol] 86.8 fL Normal 80.0-99.0 [facility] Comment on above: Performed By: #### A DIFF, ANEU, CBC #### [place] [address] Platelet 264 10 3/mcL Normal 150-450 [facility] Comment on above: Performed By: #### A DIFF, ANEU, CBC #### [place] [address] Platelet mean volume (Bld) [Entitic vol] 8.3 fL Normal 6.6-10.5 [facility] Comment on above: Performed By: #### A DIFF, ANEU, CBC #### [place] [address] RBC 3.39 10 6/mcL Low 4.10-5.30 [facility] Comment on above: Performed By: #### A DIFF, ANEU, CBC #### [address] [address] WBC 11.3 10 3/mcL High 4.5-10.8 [facility] Comment on above: Performed By: #### A DIFF, ANEU, CBC #### [address] [address] .Auto Diffon 01-03-2025 Basophil, Absolute 0.1 10 3/mcL Normal 0.0-0.3 [facility] MAIN Comment on above: Performed By: #### A DIFF, ANEU, CBC #### [address] [address] Basophils/100 WBC (Bld) 0.8 % Normal 0.0-2.5 [facility] Comment on above: Performed By: #### A DIFF, ANEU, CBC #### [address] [address] Eosinophil, Absolute 0.5 10 3/mcL Normal 0.0-0.7 [facility] MAIN Comment on above: Performed By: #### A DIFF, ANEU, CBC #### [address] [address] Eosinophils/100 WBC (Bld) 3.4 % Normal 0.0-6.0 [facility] Comment on above: Performed By: #### A DIFF, ANEU, CBC #### [address] [address] Lymphocyte, Absolute 3.6 10 3/mcL Normal 0.9-4.3 [facility] MAIN Comment on above: Performed By: #### A DIFF, ANEU, CBC #### [address] [address] Lymphocytes/100 WBC (Bld) 26.0 % Normal 20.0-40.0 [facility] Comment on above: Performed By: #### A DIFF, ANEU, CBC #### [address] [address] Monocyte, Absolute 0.9 10 3/mcL Normal 0.1-1.4 [facility] MA[facility] Comment on above: Performed By: #### A DIFF, ANEU, CBC #### [address] [address] Monocytes/100 WBC (Bld) 6.2 % Normal 2.0-13.0 [facility] Comment on above: Performed By: #### A DIFF ANEU, CBC #### [address] [address] Neutrophils/100 WBC (Bld) 63.6 % Normal 50.0-75.0 [facility] Comment on above: Performed By: #### A DIFF ANEU, CBC #### [address] [address] .GFRon 01-03-2025 Estimated Glomerular Filtration Rate 109 ml/min/1.73sqm Normal [facility] Comment on above: Result Comment: Stages [...] By: #### A JARRET ANEU, CBC #### [address] [address] .NEUABSon 01-03-2025 Neutrophil, Absolute 8.9 10 3/mcL High 2.3-8.1 [facility] Comment on above: Performed By: #### A DIFF ANEU, CBC #### [address] [address] APTTon 01-03-2025 aPTT Coag (Bld) [Time] 31.5 s Normal 25.0-35.0 [facility] Comment on above: Result Comment: For Heparin anticoagulation therapy, the recommended therapeutic range is: 54-77 seconds (APTT Correlation with Anti-Xa therapeutic range of 0.3-0.7 units/ml). PLEASE REFERENCE THE PHARMACY PROTOCOL FOR DOSING. Performed By: #### A DIFF, ANEU, CBC #### [address] [address] BMPon 01-03-2025 BUN/Creatinine Ratio 26.2 ratio High 10.0-22.0 [facility] Comment on above: Performed By: #### A DIFF, ANEU, CBC #### [address] [address] Calcium [Mass/Vol] 9.5 mg/dL Normal 8.7-10.4 [facility] Comment on above: Performed By: #### A DIFF, ANEU, CBC #### [address] [address] Chloride [Moles/Vol] 105 mmol/L Normal 98-110 [facility] Comment on above: Performed By: #### A DIFF, ANEU, CBC #### [address] [address] CO2 [Moles/Vol] 29 mmol/L Normal 22-32 [facility] Comment on above: Performed By: #### A DIFF, ANEU, CBC #### [address] [address] Creatinine [Mass/Vol] 0.61 mg/dL Normal 0.50-1.20 [facility] Comment on above: Result Comment: Test ing performed on [employer] analyzer using enzymatic creatinine methodology. Performed By: #### A DIFF, ANEU, CBC #### [address] [address] Electrolyte Balance 6.0 mEq/L Normal 4.0-15.0 [facility] Comment on above: Performed By: #### A DIFF, ANEU, CBC #### [address] [address] Glucose [Mass/Vol] 99 mg/dL Normal 70-110 [facility] Comment on above: Performed By: #### A DIFF, ANEU, CBC #### [address] [address] Potassium [Moles/Vol] 4.2 mmol/L Normal 3.5-5.0 [facility] Comment on above: Performed By: #### A DIFF, ANEU, CBC #### [address] [address] Sodium [Moles/Vol] 140 mmol/L Normal 136-145 [facility] Comment on above: Performed By: #### A DIFF, ANEU, CBC #### [address] [address] Urea nitrogen [Mass/Vol] 16.0 mg/dL Normal 8.0-22.0 [facility] Comment on above: Performed By: #### A DIFF, ANEU, CBC #### [address] [address] CBCon 01-03-2025 Erythrocyte distribution width (RBC) [Ratio] 17.1 % High 11.5-15.5 [facility] Comment on above: Performed By: #### B MP, CBC, ANEU, MG, GFR, ADIFF #### [place] [address] Hematocrit (Bld) [Volume fraction] 28.9 % Low 34.0-46.0 [facility] Comment on above: Performed By: #### B MP, CBC, ANEU, MG, GFR, ADIFF #### [place] [address] Hgb 9.4 G/dL Low 12.0-16.0 [facility] Comment on above: Performed By: #### B MP, CBC, ANEU, MG, GFR, ADIFF #### [place] [id number] MCH (RBC) [Entitic mass] 27.7 pg Normal 27.0-33.0 [facility] Comment on above: Performed By: #### B MP, CBC, ANEU, MG, GFR, ADIFF #### [place] [id number] MCHC 32.4 G/dL Normal 32.0-36.0 [facility] Comment on above: Performed By: #### B MP, CBC, ANEU, MG, GFR, ADIFF #### [place] [address] MCV (RBC) [Entitic vol] 85.7 fL Normal 80.0-99.0 [facility] Comment on above: Performed By: #### B MP, CBC, ANEU, MG, GFR, ADIFF #### [place] [address] Platelet 272 10 3/mcL Normal 150-450 [facility] Comment on above: Performed By: #### B MP, CBC, ANEU, MG, GFR, ADIFF #### [place] [address] Platelet mean volume (Bld) [Entitic vol] 8.8 fL Normal 6.6-10.5 [facility] Comment on above: Performed By: #### B MP, CBC, ANEU, MG, GFR, ADIFF #### [place] [address] RBC 3.38 10 6/mcL Low 4.10-5.30 [facility] Comment on above: Performed By: #### B MP, CBC, ANEU, MG, GFR, ADIFF #### [place] [address] WBC 14.0 10 3/mcL High 4.5-10.8 [facility] Comment on above: Performed By: #### B MP, CBC, ANEU, MG, GFR, ADIFF #### [place] [address] FIBon 01-03-2025 Fibrinogen >700 High 250-560 [facility] Comment on above: Performed By: #### A DIFF, ANEU, CBC #### [place] [address] LABORATORYOrdered By: SYSTEM SYSTEM on 01-03-2025 aPTT [...] on above: Interpretive Data: T luis a [employer] (CHEST, 1991, 102:312S-25S) [...] 01-03-2025 Magnesium [Mass/Vol] 2.0 mg/dL Normal 1.6-2.4 [facility] Comment on above: Performed By: #### A DIFF, ANEU, CBC #### [place] [address] PROon 01-03-2025 INR Coag (PPP) [Relative time] 1.0 {INR} Normal [facility] Comment on above: Result Comment: [employer] (CHEST, 1991, 102:312S-25S) recommended therapeutic range for oral anticoagulant therapy is: LOW RISK: Prophylaxis of venous thrombosis INR: 2.0-3.0 Treatment of pulmonary embolism 2.0-3.0 Prevention of systemic embolism 2.0-3.0 HIGH RISK: Mechanical prosthetic valves 2.5-3.5 Performed By: #### P RO #### [address] [address] PT Coag (PPP) [Time] 11.6 s Normal 9.0-14.4 [facility] Comment on above: Result Comment: Effe ctive 02/26/08, Protime results may be affected by some antibiotics (i.e. Ciprofloxacin, Azithromycin, Bactrim) which may potentiate the action of oral anticoagulants, with further increases in Protime/INR. Performed By: #### P RO #### [facility] [address] [place] [id number] .Auto Diffon 01-02-2025 Basophil, Absolute 0.1 10 3/mcL Normal 0.0-0.3 [facility] Comment on above: Performed By: #### M G, BMP, CBC, GFR, ANEU, ADIFF #### [address] [address] Basophils/100 WBC (Bld) 0.7 % Normal 0.0-2.5 [facility] Comment on above: Performed By: #### M G, BMP, CBC, GFR, ANEU, ADIFF #### [address] [address] Eosinophil, Absolute 0.4 10 3/mcL Normal 0.0-0.7 [facility] Comment on above: Performed By: #### M G, BMP, CBC, GFR, ANEU, ADIFF #### [address] [address] Eosinophils/100 WBC (Bld) 3.5 % Normal 0.0-6.0 [facility] Comment on above: Performed By: #### M G, BMP, CBC, GFR, ANEU, ADIFF #### [address] [address] Lymphocyte, Absolute 3.3 10 3/mcL Normal 0.9-4.3 [facility] Comment on above: Performed By: #### M G, BMP, CBC, GFR, ANEU, ADIFF #### [address] [address] Lymphocytes/100 WBC (Bld) 25.5 % Normal 20.0-40.0 [facility] Comment on above: Performed By: #### M G, BMP, CBC, GFR, ANEU, ADIFF #### [address] [address] Monocyte, Absolute 0.7 10 3/mcL Normal 0.1-1.4 [facility] Comment on above: Performed By: #### M G, BMP, CBC, GFR, ANEU, ADIFF #### [address] [address] Monocytes/100 WBC (Bld) 5.2 % Normal 2.0-13.0 [facility] Comment on above: Performed By: #### M G, BMP, CBC, GFR, ANEU, ADIFF #### [address] [address] Neutrophils/100 WBC (Bld) 65.1 % Normal 50.0-75.0 [facility] Comment on above: Performed By: #### M G, BMP, CBC, GFR, ANEU, ADIFF #### [address] [address] .GFRon 01-02-2025 Estimated Glomerular Filtration Rate 109 ml/min/1.73sqm Normal [facility] Comment on above: Result Comment: Stages of [...] G, BMP, CBC, GFR, ANEU, ADIFF #### [address] [address] .NEUABSon 01-02-2025 Neutrophil, Absolute 8.3 10 3/mcL High 2.3-8.1 [facility] Comment on above: Performed By: #### M G, BMP, CBC, GFR, ANEU, ADIFF #### [address] [address] BMPon 01-02-2025 BUN/Creatinine Ratio 25 ratio Normal 7-27 [facility] Comment on above: Performed By: #### M G, BMP, CBC, GFR, ANEU, ADIFF #### [address] [address] Calcium [Mass/Vol] 8.6 mg/dL Normal 8.4-10.2 [facility] Comment on above: Performed By: #### M G, BMP, CBC, GFR, ANEU, ADIFF #### [place] [id number] Chloride [Moles/Vol] 108 mmol/L High 98-107 [facility] Comment on above: Performed By: #### M G, BMP, CBC, GFR, ANEU, ADIFF #### [place] [address] CO2 [Moles/Vol] 30 mmol/L High 22-29 [facility] Comment on above: Performed By: #### M G, BMP, CBC, GFR, ANEU, ADIFF #### [place] [address] Creatinine [Mass/Vol] 0.61 mg/dL Normal 0.51-0.95 [facility] Comment on above: Performed By: #### M G, BMP, CBC, GFR, ANEU, ADIFF #### [place] [address] Electrolyte Balance 5.0 mEq/L Normal 4.0-15.0 [facility] Comment on above: Performed By: #### M G, BMP, CBC, GFR, ANEU, ADIFF #### [place] [address] Glucose [Mass/Vol] 121 mg/dL High 70-105 [facility] Comment on above: Performed By: #### M G, BMP, CBC, GFR, ANEU, ADIFF #### [place] [address] Potassium [Moles/Vol] 4.0 mmol/L Normal 3.5-5.1 [facility] Comment on above: Performed By: #### M G, BMP, CBC, GFR, ANEU, ADIFF #### [address] [address] Sodium [Moles/Vol] 143 mmol/L Normal 136-145 [facility] Comment on above: Performed By: #### M G, BMP, CBC, GFR, ANEU, ADIFF #### [address] [address] Urea nitrogen [Mass/Vol] 15 mg/dL Normal 7-18 [facility] Comment on above: Performed By: #### M G, BMP, CBC, GFR, ANEU, ADIFF #### [address] [address] CBCon 01-02-2025 Erythrocyte distribution width (RBC) [Ratio] 16.6 % High 11.5-15.5 [facility] Comment on above: Performed By: #### M G, BMP, CBC, GFR, ANEU, ADIFF #### [place] [id number] Hematocrit (Bld) [Volume fraction] 27.2 % Low 34.0-46.0 [facility] Comment on above: Performed By: #### M G, BMP, CBC, GFR, ANEU, ADIFF #### [place] [id number] Hgb 8.8 G/dL Low 12.0-16.0 [facility] Comment on above: Performed By: #### M G, BMP, CBC, GFR, ANEU, ADIFF #### [address] [address] MCH (RBC) [Entitic mass] 27.8 pg Normal 27.0-33.0 [facility] Comment on above: Performed By: #### M G, BMP, CBC, GFR, ANEU, ADIFF #### [place] [phone] MCHC 32.5 G/dL Normal 32.0-36.0 [facility] Comment on above: Performed By: #### M G, BMP, CBC, GFR, ANEU, ADIFF #### [place] [id number] MCV (RBC) [Entitic vol] 85.6 fL Normal 80.0-99.0 [facility] Comment on above: Performed By: #### M G, BMP, CBC, GFR, ANEU, ADIFF #### [address] [address] Platelet 233 10 3/mcL Normal 150-450 [facility] Comment on above: Performed By: #### M G, BMP, CBC, GFR, ANEU, ADIFF #### [address] [address] Platelet mean volume (Bld) [Entitic vol] 8.9 fL Normal 6.6-10.5 [facility] Comment on above: Performed By: #### M G, BMP, CBC, GFR, ANEU, ADIFF #### [address] [address] RBC 3.17 10 6/mcL Low 4.10-5.30 [facility] Comment on above: Performed By: #### M G, BMP, CBC, GFR, ANEU, ADIFF #### [address] [address] WBC 12.8 10 3/mcL High 4.5-10.8 [facility] Comment on above: Performed By: #### M G, BMP, CBC, GFR, ANEU, ADIFF #### [address] [address] MGon 01-02-2025 Magnesium [Mass/Vol] 2.0 mg/dL Normal 1.8-2.4 [facility] Comment on above: Performed By: #### M G, BMP, CBC, GFR, ANEU, ADIFF #### [address] [address] MRI SPINE LUMBAR W/O CONTRAS Ton 01-02-2025 [...] 5:30:09 AM Ordering Provider: KEATON ETIENNE Normal [facility] .Auto Diffon 01-01-2025 Basophil, Absolute 0.1 10 3/mcL Normal 0.0-0.3 [facility] Comment on above: Performed By: #### U AMIC, UA #### [address] [address] Basophils/100 WBC (Bld) 0.8 % Normal 0.0-2.5 [facility] Comment on above: Performed By: #### U AMIC, UA #### [address] [address] Eosinophil, Absolute 0.2 10 3/mcL Normal 0.0-0.7 [facility] Comment on above: Performed By: #### U AMIC, UA #### [address] [address] Eosinophils/100 WBC (Bld) 1.1 % Normal 0.0-6.0 [facility] Comment on above: Performed By: #### U AMIC, UA #### [place] [address] [place], [place] [address] Lymphocyte, Absolute 2.4 10 3/mcL Normal 0.9-4.3 [facility] Comment on above: Performed By: #### U AMIC, UA #### [place] [id number] [place], [place] [address] Lymphocytes/100 WBC (Bld) 14.6 % Low 20.0-40.0 [facility] Comment on above: Performed By: #### U AMIC, UA #### [place] [id number] [place], [place] [address] Monocyte, Absolute 0.9 10 3/mcL Normal 0.1-1.4 [facility] Comment on above: Performed By: #### U AMIC, UA #### [place] [id number] [place], [place] [address] Monocytes/100 WBC (Bld) 5.3 % Normal 2.0-13.0 [facility] Comment on above: Performed By: #### U AMIC, UA #### [address] [address] Neutrophils/100 WBC (Bld) 78.2 % High 50.0-75.0 [facility] Comment on above: Performed By: #### U AMIC, UA #### [address] [address] .GFRon 01-01-2025 Estimated Glomerular Filtration Rate 106 ml/min/1.73sqm Normal [facility] Comment on above: Result Comment: Stages of [...] Performed By: #### U AMIC, UA #### [address] [address] .MDWon 01-01-2025 Monocyte Distribution Width Not performed Normal 0.00-20.00 [facility] Comment on above: Result Comment: MDW testing performed only on adult ER patients between the ages of 18-89 years. Performed By: #### U AMIC, UA #### [address] [address] .NEUABSon 01-01-2025 Neutrophil, Absolute 12.8 10 3/mcL High 2.3-8.1 [facility] Comment on above: Performed By: #### U AMIC, UA #### [address] [address] BMPon 01-01-2025 BUN/Creatinine Ratio 21 ratio Normal 7-27 [facility] Comment on above: Performed By: #### U AMIC, UA #### [address] [address] Calcium [Mass/Vol] 8.6 mg/dL Normal 8.4-10.2 [facility] Comment on above: Performed By: #### U AMIC, UA #### [address] [address] Chloride [Moles/Vol] 104 mmol/L Normal 98-107 [facility] Comment on above: Performed By: #### U AMIC, UA #### [address] [address] CO2 [Moles/Vol] 30 mmol/L High 22-29 [facility] Comment on above: Performed By: #### U AMIC, UA #### [address] [address] Creatinine [Mass/Vol] 0.67 mg/dL Normal 0.51-0.95 [facility] Comment on above: Performed By: #### U AMIC, UA #### [address] [address] Electrolyte Balance 5.0 mEq/L Normal 4.0-15.0 [facility] Comment on above: Performed By: #### U AMIC, UA #### [address] [address] Glucose [Mass/Vol] 114 mg/dL High 70-105 [facility] Comment on above: Performed By: #### U AMIC, UA #### [address] [address] Potassium [Moles/Vol] 4.4 mmol/L Normal 3.5-5.1 [facility] Comment on above: Performed By: #### U AMIC, UA #### [address] [address] Sodium [Moles/Vol] 139 mmol/L Normal 136-145 [facility] Comment on above: Performed By: #### U AMIC, UA #### [address] [address] Urea nitrogen [Mass/Vol] 14 mg/dL Normal 7-18 [facility] Comment on above: Performed By: #### U AMIC, UA #### [address] [address] CBCon 01-01-2025 Erythrocyte distribution width (RBC) [Ratio] 16.6 % High 11.5-15.5 [facility] Comment on above: Performed By: #### U AMIC, UA #### [address] [address] Hematocrit (Bld) [Volume fraction] 30.7 % Low 34.0-46.0 [facility] Comment on above: Performed By: #### U AMIC, UA #### [address] [address] Hgb 10.0 G/dL Low 12.0-16.0 [facility] Comment on above: Performed By: #### U AMIC, UA #### [address] [address] MCH (RBC) [Entitic mass] 27.7 pg Normal 27.0-33.0 [facility] Comment on above: Performed By: #### U AMIC, UA #### [address] [address] MCHC 32.5 G/dL Normal 32.0-36.0 [facility] Comment on above: Performed By: #### U AMIC, UA #### [address] [address] MCV (RBC) [Entitic vol] 85.4 fL Normal 80.0-99.0 [facility] Comment on above: Performed By: #### U AMIC, UA #### [address] [address] Platelet 273 10 3/mcL Normal 150-450 [facility] Comment on above: Performed By: #### U AMIC, UA #### [address] [address] Platelet mean volume (Bld) [Entitic vol] 8.6 fL Normal 6.6-10.5 [facility] Comment on above: Performed By: #### U AMIC, UA #### [address] [address] RBC 3.60 10 6/mcL Low 4.10-5.30 [facility] Comment on above: Performed By: #### U AMIC, UA #### [address] [address] WBC 16.3 10 3/mcL High 4.5-10.8 [facility] Comment on above: Performed By: #### U AMIC, UA #### [address] [address] [address] THORAX W/ CONTRASTon 12-13 CT THORAX [...] 12:01:53 PM Ordering Provider: CAREY TAN Normal [facility] UAon 01-01-2025 Color (U) Yellow Normal [facility] Comment on above: Performed By: #### U A #### [address] [address] Glucose (U) [Mass/Vol] Negative Normal Negative [facility] Comment on above: Performed By: #### U A #### [address] [address] Ketones Ql (U) Negative Normal Negative [facility] Comment on above: Performed By: #### U A #### [address] [address] UA Appear Clear Normal Clear [facility] Comment on above: Performed By: #### U A #### [place] [address] UA Blood Negative Normal Negative [facility] Comment on above: Performed By: #### U A #### [place] [address] UA Leuk Est Negative Normal Negative [facility] Comment on above: Performed By: #### U A #### [place] [address] UA Nitrite Negative Normal Negative [facility] Comment on above: Performed By: #### U A #### [place] [address] UA pH 7.5 Normal 5.0 - 8.0 [facility] Comment on above: Performed By: #### U A #### [place] [address] UA Protein Negative Normal Negative [facility] Comment on above: Performed By: #### U A #### [place] [address] UA Spec Grav 1.010 Abnormal 1.015-1.025 [facility] Comment on above: Performed By: #### U A #### [place] [address] UA Specimen Type Clean Catch Normal [facility] Comment on above: Performed By: #### U A #### [place] [address] UA Urobilinogen 0.2 E.U./dL Normal 0.2-1.0 [facility] Comment on above: Performed By: #### U A #### [place] [address] Urobilinogen (U) [Mass/Vol] Negative Normal Negative [facility] Comment on above: Performed By: #### U A #### [place] [address] ED NOTEon 12-28-2024 ED NOTE HNO ID: [id number] Author: DERRICK LUNA RN Service: ? 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 Discharge paperwork and follow up discussed. [facility] ED NOTE HNO ID: [id number] Author: DERRICK LUNA RN Service: ? Author Type: Registered Nurse Type: ED Notes Filed: 12/28/2024 14:02 Note Text: Assisted pt to bathroom. Pt able to pivot and stand with minimal assistance. Able to walk a few steps with walker but continues to complain of pain. Dr Noble aware and in talking with pt. [facility] ED NOTE HNO ID: [id number] Author: DERRICK LUNA RN Service: ? Author Type: Registered Nurse Type: ED Notes Filed: 12/28/2024 12:59 Note Text: Pt arrived via medic with c/o leg pain. Pt was here other day for. States toradol was helpful before. States she took percocet earlier for without relief. [place], warm, dry. No apparent distress. Alert and oriented. [facility] ED PROV NOTEon 12-28-2024 ED PROV NOTE HNO ID: [id number] Author: TALHA NOBLE MD Service: Emergency Medicine [...] of 12/28/24 1412 Sciatica of right side Wound Care Nurse (more content not included)... Normal [facility] ALLIED HEALTHon 12-25-2024 ALLIED HEALTH HNO ID: [id number] Author: CLARISSA OWEN RT(R) Service: Radiology Author Type: Teacher Type: Allied Health Filed: 12/25/2024 16:32 Note [...] PATIENT PRESENTS WITH AN IMPLANTABLE OR ATTACHED IT INFRASTRUCTURE SPECIALIST: No RADIOLOGY DEPARTMENT: CT; Exam(s) Completed: Abdomen/Pelvis PERIPHERAL IV DATA: Not applicable SIGNED BY: GARDENIA Owens) / Kaushik Hays December 25, 2024 4:32 PM Normal [facility] ALLIED HEALTH HNO ID: [id number] Author: CLARISSA OWEN RT(R) Service: Radiology Author Type: Teacher Type: Allied Health Filed: 12/25/2024 13:43 Note [...] PATIENT PRESENTS WITH AN IMPLANTABLE OR ATTACHED IT INFRASTRUCTURE SPECIALIST: No RADIOLOGY DEPARTMENT: CT; Exam(s) Completed: Spine PERIPHERAL IV DATA: Not applicable SIGNED BY: GARDENIA Owens) / Kaushik Hays December 25, 2024 1:43 PM [facility] CT ABD/PEL WO IVCONon 2024 CT ABD/PEL WO IVCON * * *Final Report* * * DATE OF EXAM: Dec 25 2024 4:24PM [facility] 0531 - CT ABD/PEL WO IVCON / [...] No additional findings. IMPRESSION: No acute findings. Cost Clerk: DEB Transcribe Date/Time: Dec 25 2024 4:48P Dictated by : OVIDIO NELSON MD This examination was interpreted and the report reviewed and electronically signed by: OVIDIO NELSON MD on Dec 25 2024 4:54PM EST [id number] Normal [facility] CT LUMBAR SPINE WO IVCONon 0 12-25-2024 CT LUMBAR SPINE WO IVCON * * *Final Report* * * DATE OF EXAM: Dec 25 2024 1:42PM [facility] 0508 - CT LUMBAR SPINE WO IVCON [...] are 5 lumbar-type vertebrae. Anatomic variant: None. Manager Terminal (topogram) images: No additional findings. Limitations: Body [...] be communicated with the ordering provider via [employer] staff message or phone message by [employer] within 2 business days of report finalization. --END OF FINDING-- Cost Clerk: DEB Transcribe Date/Time: Dec 25 2024 2:31P Dictated by : FEMI DAVIDSON MD This examination was interpreted and the report reviewed and electronically signed by: FEMI DAVIDSON MD on Dec 25 2024 2:48PM EST [id number] ACTIONABLE Invalid Interpretation Code [facility] ED NOTEon 12-25-2024 ED NOTE HNO ID: [id number] Author: OVIDIO SCOTT RN Service: ? Author Type: Registered Nurse Type: ED Notes Filed: 12/30/2024 10:46 Note Text: Chart accessed on 12-30-24 for chart audit pi [facility] ED NOTE HNO ID: [id number] Author: TRAVIS KELLY RN Service: ? Author Type: Registered Nurse Type: ED Notes Filed: 12/25/2024 17:41 Note Text: D/c instructions reviewed with pt who verbalized understanding. Pt's vss and left ED in wheelchair with family [facility] ED NOTE HNO ID: [id number] Author: DERRICK LUNA RN Service: ? Author Type: Registered Nurse Type: ED Notes Filed: 12/25/2024 16:20 Note Text: Assisted pt to bathroom. Pt states still in pain. [facility] ED NOTE HNO ID: [id number] Author: TRAVIS KELLY RN Service: ? Author [...] robaxin at 1045. Will continue to monitor. [facility] ED PROV NOTEon 12-25-2024 ED PROV NOTE HNO ID: [id number] Author: ANDERSON BEEBE MD Service: Emergency Medicine [...] Patient is following outpatient pain management in [place] however does not have an appointment for [...] Morbidly obese (more content not included)... Normal [facility] Cardiology Visit Reporton Cardiology Visit Report [facility] [address] [place] [address] OFFICE VISIT Date of Service: 05/16/24 MR#: [id number] Acct: [id number] Name: MITCHELL BROOKS Rep #: [id number] : 1975 Provider: Dr. Yung Thapa MD Age/Sex: 49/F [place] [facility] [place] Status: Signed HPI HPI History of Present Illness Details: This patient is here for follow-up visit. According to her, she gets sharp stabbing chest pain whenever she is emotionally upset. This lasts for a second or 2 only. According to her, lately she has been very stressed. Her is in shelter and her nephew got out of shelter only today. Occasionally feels lightheaded and dizzy. 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 Normal [facility] ED NOTEon 04-05-2024 ED NOTE HNO ID: [id number] Author: VIKTORIA DAY RN Service: ? Author [...] DATE: April 06, 2024 TIME: 12:23 PM [facility] ED NOTE HNO ID: [id number] Author: PATRICA ORDOÑEZ RN Service: Emergency Medicine Author Type: Registered Nurse Type: ED Notes Filed: 04/05/2024 20:31 Note Text: Pt up to bathroom, walker used, gait steady, able to get self back to bed afterwards [facility] [facility] HNO ID: [id number] Author: PATRICA ORDOÑEZ RN Service: Emergency Medicine Author Type: Registered Nurse Type: ED Notes Filed: 04/05/2024 19:40 Note Text: Patient informed: the name of medication, why we are giving it, possible side effects, what they may expect to feel, and was offered a chance to ask questions, prior to the administration of percocet and gabapentin [facility] ED NOTE HNO ID: [id number] Author: ELTON TEAGUE RN Service: Emergency Medicine Author Type: Registered Nurse Type: ED Notes Filed: 04/05/2024 19:02 Note Text: Report to Patrica FERNÁNDEZ [facility] ED NOTE HNO ID: [id number] Author: ELTON TEAGUE RN Service: Emergency Medicine Author Type: Registered Nurse Type: ED Notes Filed: 04/05/2024 16:55 Note Text: PT BROUGHT BY EMS FOR FALL PT DENIES HITTING HEAD OR PASSING OUT STATES SHE FELL STRAIGHT DOWN ON TO HER KNEES. PT IS ALERT AND ORIENTED AMBULATES FROM EMS COT TO BED. [facility] ED PROV NOTEon 04-05-2024 ED PROV NOTE HNO ID: [id number] Author: MELODIE BLANCAS MD Service: Emergency Medicine [...] MEDICAL HISTORY 07/20/2013: RAFIA (acute kidney injury) (FORMERLY [facility]) Comment: Baseline Cr 0.58 07/20 Cr 1.6 Possibly 2/2 sepsis (organ damage) as pt received 8L IVFs Making urine appropriately Plan: IVFs No date: Anxiety No date: Asthma No date: Cervical spondylosis No date: Chronic pain No date: Debility No date: HTN (hypertension) No date: Hypothyroid No date: Irritable bowel syndrome No date: Lymphedema No date: Morbid obesity ([facility]LY [facility]) 08/14/2012: Necrotizing fasciitis ([facility]ERLY [facility]) Comment: thigh wound 07/20/2013: Septic shock (FORMERLY [facility]) Comment: On Dopamine, vasopressine and NE upon [...] is no (more content not included)... Normal [facility] XR HIP 3V PELV+ AP/LAT RTon 04-05-2024 [...] lower lumbar spine. No other significant abnormality. Cost Clerk: DEB Transcribe Date/Time: Apr 05 2024 8:15P Dictated by : ZAKI BALDERAS MD This examination was interpreted and the report reviewed and electronically signed by: ZAKI BALDERAS MD on Apr 05 2024 8:16PM EST [id number] CN Normal [facility] XR KNEE 2V AP/LAT LTon 04-05 XR [...] and tricompartmental osteophytosis. No other significant abnormality. Cost Clerk: [facility] Transcribe Date/Time: Apr 05 2024 8:18P Dictated by : ZAKI BALDERAS MD This examination was interpreted and the report reviewed and electronically signed by: ZAKI BALDERAS MD on Apr 05 2024 8:22PM EST [id number] CN Normal [facility] XR KNEE 2V AP/LAT RTon 04-05 XR [...] and tricompartmental osteophytosis. No other significant abnormality. Cost Clerk: [facility] Transcribe Date/Time: Apr 05 2024 8:18P Dictated by : ZAKI BALDERAS MD This examination was interpreted and the report reviewed and electronically signed by: ZAKI BALDERAS MD on Apr 05 2024 8:22PM EST [id number] CN Normal [facility] XR LUMBAR 3V AP/LAT/L5-S1on 04-05-2024 XR LUMBAR [...] facet degenerative changes. No other significant abnormality. Cost Clerk: [facility] Transcribe Date/Time: Apr 05 2024 8:26P Dictated by : ZAKI BALDERAS MD This examination was interpreted and the report reviewed and electronically signed by: ZAKI BALDERAS MD on Apr 05 2024 8:26PM EST [id number] CN [facility] 03-25-2024 36 Name of caller: Mitchell Brooks Contact phone number: [phone] Relationship to Patient: patient Provider: Joyce Sierra [...] business hours to return their call: Yes [facility] 36on 10-09-2023 36 Patient is scheduled for an OV in December in [place] with Joyce Sierra [facility] 36 Name of caller: Mitchell Contact phone number: [phone] Relationship to Patient: patient Provider: [facility] Practice: Gastro Chief Complaint/Reason for Call: Pt calling to check status of new patient referral. [facility] should have sent over referral last week. Unable to see referral in patient's chart at time of all. Please advise, thank you. Best time of day caller can be reached: AM Patient advised that office/PCP has 24-48 business hours to return their call: Yes [facility] CNPNon 01-26-2023 CNPN Telephone (HEMAVN) MILLERMITCHELL MENDOZA ([id number]) 1975 F T Date Time Provider Department 01/26/23 NABILA WATSON During your visit today, we recorded the following information about you: Criss Landers 01/26/2023 3:15 PM Signed This patient was seen by Myke Ross in the ED around . Patient lives out in [place] wanting a referral placed and faxed over to [facility] Fax# [phone] Please call her if there is any [...] Fully Assessed Reason for Visit: Patient Question [2662] Cmt: Referral Prescriptions as of 01/26/2023 - [...] Status:Closed by CRISS LANDERS on 01/26/23 Normal [facility] CNDSon 01-14-2023 CNDS HNO ID: [id number] Author: Herb Chavarria MD Service: Hospital Medicine [...] than carbamazepine to be able to use chcf AC in this patient. Plan Metoprolol 37.5 [...] ADDITIONAL INFORMATION: Follow up with cardiology in [place] over next 3-4 weeks. Psychiatry phone number to call for follow up [phone] over next 2 weeks FOLLOW UP APPOINTMENTS: Future Appointments Date Time Provider Department Center 02/23/2023 3:30 PM Myke Ross MD IFDREJ REJ 03/15/2023 8:20 AM Ganesh Archer MD [facility] ALLERGIES Allergen Reactions Lactose Diarrhea Aleve [...] twice daily. Qty: (more content not included)... [facility] NURSING PROGon 01-14-2023 NURSING PROG HNO ID: [id number] Author: Nury Gonzalez RN Service: Nursing Author Type: Registered Nurse Type: Nursing Progress Note Filed: 01/14/2023 4:33 PM Note Text: Other: Pt left for discharge via wheelchair in stable condition. Pt returned all belongings, wearing bilateral hearing aids. Pt given and explained discharge instructions. All pt questions answered. [facility] Basic metabolic 2000 panelon 01-13-2023 Anion gap [Moles/Vol] 10 mmol/L Normal 9-18 [facility] Comment on above: Order Comment: Speci men Type: BLOOD SPECIMENOrdering Facility: [facility] Address: [address] [place] [phone] Performed By: #### 3 016-3, 83062-1 ####[facility] LABORATORYCLIA [id number] [facility] [place] [address] [place] Calcium [Mass/Vol] 8.7 mg/dL Normal 8.5-10.2 [facility] Comment on above: Order Comment: Speci men Type: BLOOD SPECIMENOrdering Facility: [facility] Address: [address] [place] [address] Performed By: #### 3 016-3, 48627-0 ####[facility] LABORATORYCLIA [id number] [place] [address] [place] Chloride [Moles/Vol] 105 mmol/L Normal 97-105 [facility] Comment on above: Order Comment: Speci men Type: BLOOD SPECIMENOrdering Facility: [facility] Address: [address] [place] [address] Performed By: #### 3 3, ####[facility] [id number] [place] [address] [place] CO2 [Moles/Vol] 27 mmol/L Normal 22-30 [facility] Comment on above: Order Comment: Speci men Type: BLOOD SPECIMENOrdering Facility: [facility] Address: [address] [place] [address] Performed By: #### 3 016-3, ####[facility] LABORATORYIA [id number] [facility] [place] [address] [place] Creatinine [Mass/Vol] 0.59 mg/dL Normal 0.58-0.96 [facility] Comment on above: Order Comment: Speci men Type: BLOOD SPECIMENOrdering Facility: [facility] Address: [address] [place] [address] Performed By: #### 3 016-3, 31123-7 ####[facility] LABORATORYIA [id number] [place] [address] [place] ESTIMATED GLOMERULAR FILTRATION RATE 111 mL/min/1.73m??? Normal >=60 [facility] Comment on above: Order Comment: Elias do Type: BLOOD SPECIMENOrdering Facility: [facility] Address: [address] [place] [id number] Result Comment: Carmen mated Glomerular Filtration Rate [...] actual GFR. Performed By: #### 3 016-3, 50078-9 ####[facility] LABORATORYCLIA [id number] [facility] [place] [address] [place] Glucose [Mass/Vol] 97 mg/dL Normal 74-99 [facility] Comment on above: Order Comment: Elias do Type: BLOOD SPECIMENOrdering Facility: [facility] Address: [place] [address] Result Comment: The [place] Diabetes Association (ADA) provides guidance for cutoff [...] Standards of Medical Care in Diabetes 2016, [place] Diabetes Association. Diabetes Care. 2016.39(Suppl 1). Performed By: #### 3 016-3, 81851-5 ####[facility] LABORATORYCLIA [id number] [facility] [place] [address] [place] Potassium [Moles/Vol] 3.7 mmol/L Normal 3.7-5.1 [facility] Comment on above: Order Comment: Elias do Type: BLOOD SPECIMENOrdering Facility: [facility] Address: [place] [place] [id number] Performed By: #### 3 016-3, 99674-7 ####[facility] LABORATORYCLIA [id number] [facility].[place] [id number] [place] [facility] Sodium [Moles/Vol] 142 mmol/L Normal 136-144 [facility] Comment on above: Order Comment: Speci men Type: BLOOD SPECIMENOrdering Facility: [facility] Address: [address] [place] [address] Performed By: #### 3 016-3, 24969-5 ####[facility] LABORATORYIA [id number] [address] [place] Urea nitrogen [Mass/Vol] 7 mg/dL Normal 7-21 [facility] Comment on above: Order Comment: Speci men Type: BLOOD SPECIMENOrdering Facility: [facility] Address: [address] [place] [address] Performed By: #### 3 016-3, 12982-2 ####[facility] [id number] [facility].[address] [place] CBC panel Auto (Bld)on 01-13 Erythrocyte distribution width (RBC) [Ratio] 15.8 % High 11.5-15.0 [facility] Comment on above: Order Comment: Speci men Type: BLOOD SPECIMENOrdering Facility: [facility] Address: [address] [place] [address] Performed By: #### 5 8410-2 ####[facility] LABORATORYIA [id number] [facility].[address] [place] Hematocrit (Bld) [Volume fraction] 34.0 % Low 36.0-46.0 [facility] Comment on above: Order Comment: Speci men Type: BLOOD SPECIMENOrdering Facility: [facility] Address: [address] [place] [address] Performed By: #### 5 8410-2 ####[facility] LABORATORYIA [id number] [facility] [place] [address] [place] Hemoglobin (Bld) [Mass/Vol] 10.4 g/dL Low 11.5-15.5 [facility] Comment on above: Order Comment: Speci men Type: BLOOD SPECIMENOrdering Facility: [facility] Address: [address] [place] [address] Performed By: #### 5 8410-2 ####[facility] [id number] [address] OF [facility] MCH (RBC) [Entitic mass] 27.7 pg Normal 26.0-34.0 [facility] Comment on above: Order Comment: Speci men Type: BLOOD SPECIMENOrdering Facility: [facility] Address: [address] [place] [address] Performed By: #### 5 8410-2 ####[facility] [id number] [address] [place] MCHC (RBC) [Mass/Vol] 30.6 g/dL Normal 30.5-36.0 [facility] Comment on above: Order Comment: Speci men Type: BLOOD SPECIMENOrdering Facility: [facility] Address: [address] [place] [address] Performed By: #### 5 8410-2 ####[facility] [id number] [address] OF [facility] MCV (RBC) [Entitic vol] 90.4 fL Normal 80.0-100.0 [facility] Comment on above: Order Comment: Speci men Type: BLOOD SPECIMENOrdering Facility: [facility] Address: [address] [place] [address] Performed By: #### 5 8410-2 ####[facility] [id number] [address] [place] Nucleated RBC (Bld) [#/Vol] 10*3/uL Normal <0.01 [facility] Comment on above: Order Comment: Speci men Type: BLOOD SPECIMENOrdering Facility: [facility] Address: [address] [place] [address] Performed By: #### 5 8410-2 ####[facility] LABORATORYIA [id number] [place] [address] [place] Platelet mean volume (Bld) [Entitic vol] 10.6 fL Normal 9.0-12.7 [facility] Comment on above: Order Comment: Speci men Type: BLOOD SPECIMENOrdering Facility: [facility] Address: [address] [place], [place] [address] Performed By: #### 5 8410-2 ####[facility] [id number] [place] [address] [place] Platelets (Bld) [#/Vol] 289 10*3/uL Normal 150-400 [facility] Comment on above: Order Comment: Speci men Type: BLOOD SPECIMENOrdering Facility: [facility] Address: [address] [place], [place] [address] Performed By: #### 5 8410-2 ####[facility] [id number] [place] [address] [place] RBC (Bld) [#/Vol] 3.76 10*6/uL Low 3.90-5.20 [facility] Comment on above: Order Comment: Speci men Type: BLOOD SPECIMENOrdering Facility: [facility] Address: [address] [place], [place] [address] Performed By: #### 5 8410-2 ####[facility] [id number] [place] [address] [place] WBC (Bld) [#/Vol] 8.61 10*3/uL Normal 3.70-11.00 [facility] Comment on above: Order Comment: Speci men Type: BLOOD SPECIMENOrdering Facility: [facility] Address: [address] [place] [address] Performed By: #### 5 8410-2 ####[facility] [id number] [place] [id number] [facility] [place] CONSULT PROGon 01-13-2023 CONSULT PROG HNO ID: [id number] Author: Gertrudis Frederick APRN.MACHINES TECHNICIAN Service: Cardiovascular Medicine Author Type: Nurse Practitioner Type: Consult Progress Note Filed: 01/13/2023 3:34 PM Note Text: [facility] CONSULT PROGRESS NOTE (Template ID [id number]) CONSULTING SERVICE: Cardiology: Consult Team PRIMARY SERVICE: Internal Medicine HOSPITAL DAY: #3 REASON FOR CONSULT: Atrial fibrillation SUBJECTIVE HPI: Ms. Brooks is a 47 year old female from [place], [place] with h/o morbid obesity, necrotizing fascitis [...] mg twice daily. Titrate as needed. - WDS4YD4 VASc score is 2. Recomm (more content not included)... Normal [facility] 01-13-2023 Echocardiography Echocardiography Report: Transthoracic Echo [facility] Date of service: 01/13/2023 1:32:30 PM Ordering physician: CHRISSY NOVOA Indication: Sustained atrial fibrillation Technologist: Geovanny Sánchez RCCS, RDCS, RVT, RDMS Interpreting physician: [...] * * Final * * * [facility] : [id number] [facility] THERAPY NTon 01-13-2023 THERAPY NT HNO ID: [id number] Author: Chapis Forde PT, LATONIA Service: ? Author Type: Physical Therapist Type: Therapy (PT/OT/Speech/Resp) Filed: 01/13/2023 2:52 PM Note Text: PHYSICAL THERAPY MISSED VISIT SERVICE DATE: 01/13/2023 SERVICE TIME: 1451 to 1451 ROOM: [place] [address] Patient not seen due to Another service at bedside. PT will re-attempt at a later date. SIGNATURE: Chapis Forde PT, DPT PATIENT NAME: Mitchell Brooks DATE: January 13, 2023 TIME: 2:52 PM [facility] TSH SerPl-aCncon 01-13-2023 TSH Qn 2.350 m[IU]/L Normal 0.270-4.200 [facility] Comment on above: Order Comment: Speci men Type: BLOOD SPECIMENOrdering Facility: [facility] Address: [address] [place] [phone] Result Comment: If t he patient is , TSH reference range varies by gestational period: First Trimester (weeks 9-12): 0.180-2.990 mIU/L Second Trimester: 0.110-3.980 mIU/L Third Trimester: 0.480-4.710 mIU/L Epi Hopkins et al. A Practical Approach for the Verifications and Determination of Site- and Trimester-Specific Reference Intervals for Thyroid Function tests in . Thyroid, 2019:29:3:412-420. Dao E, et al. 2017 Guidelines of the [place] Thyroid Association for the Diagnosis and Management of Thyroid Disease during and the . Thyroid, 2017:27:3:315-389. Performed By: #### 3 016-3, 12386-5 ####[facility] LABORATORYCLIA [id number] [place] [address] [place] Basic metabolic 2000 panelon 01-12-2023 Anion gap [Moles/Vol] 9 mmol/L Normal 9-18 [facility] Comment on above: Order Comment: Elias do Type: BLOOD SPECIMENOrdering Facility: [facility] Address: [address] [place] [address] Performed By: #### 1 9123-9, 71909-7 ####[facility] [id number] [place] [address] [place] Calcium [Mass/Vol] 8.8 mg/dL Normal 8.5-10.2 [facility] Comment on above: Order Comment: Elias do Type: BLOOD SPECIMENOrdering Facility: [facility] Address: [address] [place] [address] Performed By: #### 1 9123-9, 82448-2 ####[facility] LABORATORYIA [id number] [place] [address] [place] Chloride [Moles/Vol] 106 mmol/L High 97-105 [facility] Comment on above: Order Comment: Elias do Type: BLOOD SPECIMENOrdering Facility: [facility] Address: [address] [place] [address] Performed By: #### 1 9123-9, 02727-1 ####[facility] LABORATORYIA [id number] [facility] [place] [address] [place] CO2 [Moles/Vol] 26 mmol/L Normal 22-30 [facility] Comment on above: Order Comment: Speci men Type: BLOOD SPECIMENOrdering Facility: [facility] Address: [address] [place] [address] Performed By: #### 1 9123-9, 23485-0 ####[facility] LABORATORYIA [id number] [place] [address] [place] Creatinine [Mass/Vol] 0.69 mg/dL Normal 0.58-0.96 [facility] Comment on above: Order Comment: Speci men Type: BLOOD SPECIMENOrdering Facility: [facility] Address: [address] [place] [address] Performed By: #### 1 9123-9, 88527-4 ####[facility] [id number] [address] [place] ESTIMATED GLOMERULAR FILTRATION RATE 107 mL/min/1.73m??? Normal >=60 [facility] Comment on above: Order Comment: Speci men Type: BLOOD SPECIMENOrdering Facility: [facility] Address: [address] [place] [address] Result Comment: Carmen mated Glomerular Filtration Rate [...] actual GFR. Performed By: #### 1 9123-9, 97000-3 ####[facility] LABORATORYIA [id number] [place] [address] [place] Glucose [Mass/Vol] 107 mg/dL High 74-99 [facility] Comment on above: Order Comment: Speci men Type: BLOOD SPECIMENOrdering Facility: [facility] Address: [address] [place], [place] [address] Result Comment: The [place] Diabetes Association (ADA) provides guidance for cutoff [...] Standards of Medical Care in Diabetes 2016, [place] Diabetes Association. Diabetes Care. 2016.39(Suppl 1). Performed By: #### 1 9123-9, 74948-0 ####[facility] LABORATORYCLIA [id number] [place] [address] [place] Potassium [Moles/Vol] 4.1 mmol/L Normal 3.7-5.1 [facility] Comment on above: Order Comment: Speci men Type: BLOOD SPECIMENOrdering Facility: [facility] Address: [address] Performed By: #### 1 [address]12[address], 11275-3 ####[facility] [id number] [place] [address] [place] Sodium [Moles/Vol] 141 mmol/L Normal 136-144 [facility]ital Comment on above: Order Comment: Speci men Type: BLOOD SPECIMENOrdering Facility: [facility] Address: [address] Performed By: #### 1 [address]1239, 43032-7 ####[facility] LABORATORYCLIA [id number] [place] [address] [place] Urea nitrogen [Mass/Vol] 9 mg/dL Normal 7-21 [facility] Comment on above: Order Comment: Speci men Type: BLOOD SPECIMENOrdering Facility: [facility] Address: [address] Performed By: #### 1 91239, 25925-0 ####[facility] LABORATORYIA [id number] [address] [place] CBC panel Auto (Bld)on 01-12 Erythrocyte distribution width (RBC) [Ratio] 15.9 % High 11.5-15.0 [facility] Comment on above: Order Comment: Speci men Type: BLOOD SPECIMENOrdering Facility: [facility] Address: [address] [place] [address] Performed By: #### 5 8410-2 ####[facility] LABORATORYIA [id number] [address] Hematocrit (Bld) [Volume fraction] 33.2 % Low 36.0-46.0 [facility] Comment on above: Order Comment: Speci men Type: BLOOD SPECIMENOrdering Facility: [facility] Address: [address] [place] [address] Performed By: #### 5 8410-2 ####[facility] [id number] [address] [place] Hemoglobin (Bld) [Mass/Vol] 10.3 g/dL Low 11.5-15.5 [facility] Comment on above: Order Comment: Speci men Type: BLOOD SPECIMENOrdering Facility: [facility] Address: [address] [place] [address] Performed By: #### 5 8410-2 ####[facility] LABORATORYIA [id number] [address] MCH (RBC) [Entitic mass] 27.8 pg Normal 26.0-34.0 [facility] Comment on above: Order Comment: Speci men Type: BLOOD SPECIMENOrdering Facility: [facility] Address: [address] [place] [address] Performed By: #### 5 8410-2 ####[facility] LABORATORYIA [id number] [address] [place] MCHC (RBC) [Mass/Vol] 31.0 g/dL Normal 30.5-36.0 [facility] Comment on above: Order Comment: Speci men Type: BLOOD SPECIMENOrdering Facility: [facility] Address: [address] Performed By: #### 5 8410-2 ####[facility] [id number] [place] [address] [place] MCV (RBC) [Entitic vol] 89.7 fL Normal 80.0-100.0 [facility] Comment on above: Order Comment: Speci men Type: BLOOD SPECIMENOrdering Facility: [facility] Address: [address] Performed By: #### 5 8410-2 ####[facility] [id number] [place] [address] [place] Nucleated RBC (Bld) [#/Vol] 10*3/uL Normal <0.01 [facility] Comment on above: Order Comment: Speci men Type: BLOOD SPECIMENOrdering Facility: [facility] Address: [address] Performed By: #### 5 8410-2 ####[facility] [id number] [place] [address] [place] Platelet mean volume (Bld) [Entitic vol] 10.8 fL Normal 9.0-12.7 [facility] Comment on above: Order Comment: Speci men Type: BLOOD SPECIMENOrdering Facility: [facility] Address: [address] Performed By: #### 5 8410-2 ####[facility] [id number] [place] [address] [place] Platelets (Bld) [#/Vol] 271 10*3/uL Normal 150-400 [facility] Comment on above: Order Comment: Speci men Type: BLOOD SPECIMENOrdering Facility: [facility] Address: [address] Performed By: #### 5 8410-2 ####[facility] LABORATORYCLIA [id number] [facility] [place] [address] [facility] RBC (Bld) [#/Vol] 3.70 10*6/uL Low 3.90-5.20 [facility] Comment on above: Order Comment: Speci men Type: BLOOD SPECIMENOrdering Facility: [facility] Address: [address] [place] [address] Performed By: #### 5 8410-2 ####[facility] LABORATORYCLIA [id number] [facility] [address] [facility] WBC (Bld) [#/Vol] 8.61 10*3/uL Normal 3.70-11.00 [facility] Comment on above: Order Comment: Speci men Type: BLOOD SPECIMENOrdering Facility: [facility] Address: [address] [place] [address] Performed By: #### 5 8410-2 ####[facility]ITAL[facility] [id number] [place] [id number] [facility] CONSULTon 01-12-2023 CONSULT HNO ID: [id number] Author: Quintin Yusuf MD Service: Cardiovascular Medicine [...] is a 47 year old female from [place], [place] with h/o morbid obesity, necrotizing fascitis [...] HISTORY Diagnosis Date RAFIA (acute kidney injury) (FORMERLY [facility]) 07/20/2013 Baseline Cr 0.58 07/20 Cr 1.6 Possibly 2/2 sepsis (organ damage) as pt received 8L IVFs Making urine appropriately Plan: IVFs Anxiety Asthma Cervical spondylosis Chronic pain Debility HTN (hypertension) Hypothyroid Irritable bowel syndrome Lymphedema Morbid obesity (HCC) Necrotizing fasciitis ([facility]LY [facility]) 08/14/2012 thigh wound Septic shock (FORM[facility]) 07/20/2013 On Dopamine, vasopressine and NE upon [...] mg tab(s) (more content not included)... Normal [facility] ECG COMPLETEon 01-12-2023 ECG COMPLETE Ventricular Rate : 99 BPM Atrial Rate : 0 BPM P-R Interval : 128 ms QRS Duration : 100 ms Q-T Interval : 366 ms QTC Calculation(Bazett) : 470 ms Calculated R Moriches : 37 degrees Calculated T Moriches : 3 degrees Atrial fibrillation Nonspecific ST and T wave abnormality Confirmed by JOSE M DESAI MD ([id number]) on 01/14/2023 1:03:28 PM NAME : MITCHELL BROOKS PID : [id number] : 1975 Gender : Female Race : ORD : [id number] Procedure Date : Jan 12 2023 14:28:44 Edit Date : Jan 14 2023 13:03:29 Diagnosis: Atrial fibrillation Nonspecific ST and T wave abnormality Confirmed by JOSE M DESAI MD ([id number]) on 01/14/2023 1:03:28 PM Test Reason : Arrhythmia Location : 300 : EKG 506 Overread By : JOSE M DESAI MD Edited By : JOSE M DESAI MD Referred By : ROMÁN CHANDLER Acquired by : Beth ERICKSON [facility] HCG Preg Ur Qlon 01-12-2023 HCG ( test) Ql (U) Negative Normal Negative [facility] Comment on above: Order Comment: Speci men Type: URINE SPECIMENOrdering Facility: [facility] Address: [facility] [address] [place] [address] Result Comment: This test is intended to aid in the early detection of . Very dilute urine samples, as indicated by a low specific gravity, may not contain front desk representative levels of hCG. This test detects [...] for . Performed By: #### 2 106-3 ####[facility] LABORATORYCLIA [id number] [facility] [place] [address] [facility] [place] Magnesium SerPl-mCncon 01-12 Magnesium [Mass/Vol] 2.0 mg/dL Normal 1.7-2.3 [facility] Comment on above: Order Comment: Speci men Type: BLOOD SPECIMENOrdering Facility: [facility] Address: [place] [address] Performed By: #### 1 9123-9, 84804-1 ####[facility] LABORATORYCLIA [id number] [address] [place] [address] [facility] NURSING PROGon 01-12-2023 NURSING PROG HNO ID: [id number] Author: Donna Harrison RN Service: PICC Team Author Type: Registered Nurse Type: Nursing Progress Note Filed: 01/12/2023 2:41 PM Note Text: PICC/VASCULAR ACCESS PROGRESS NOTE SERVICE DATE: 01/12/2023 SERVICE TIME: 1420 Called to [address] [place] [address] for difficult IV start. #20 angio 2 inch placed in right forearm under ultrasound guidance. Brisk blood return flushed with 10ml of normal saline with no complications. RN aware. SIGNATURE: Donna Harrison RN PATIENT NAME: Mitchell Brooks DATE: January 12, 2023 TIME: 2:38 PM PAGER/CONTACT #: [phone] [facility] THERAPY NT 01-12-2023 THERAPY NT HNO ID: [id number] Author: Chapis Forde, PT, DPT Service: ? Author Type: Physical Therapist Type: Therapy (PT/OT/Speech/Resp) Filed: 01/12/2023 1:48 PM Note Text: Physical Therapy Treatment SERVICE DATE: 01/12/2023 SERVICE TIME: 1310 to 1335 ROOM: [place] [address] Recommended Discharge Disposition: Home PT Recommended Discharge [...] door) Assistance Available: Part-Time (pt's pilar works multimedia assistant during the day (always off on )) Entry To Home: Stairs, With Rail Number Of Stairs Into Home: 3 Number Of Stairs To Bed/Bath: 0 Tub/Shower Type: tub shower, grab bar, shower chair Laundry: assists Equipment Owned: Cane, Walker- Wheeled, Rollator, Shower Chair, Grab Bars- Shower, Reed Repairer, Long Handled Shoe Horn, Sock Aid, Commode- [...] gait and mobility-other Interventions Provided: Gait Training (57284), Therapeutic Activity (86955) Therapeutic Activity (98376) Treatment Minutes: 8 $ (more content not included)... 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 Now I have to see the administrative sales assistant and infectious disease before I leave." CURRENT [...] (ADL), Muscle (more content not included)... Normal [facility] Basic metabolic 2000 panelon 01-11-2023 Anion gap [Moles/Vol] 11 mmol/L Normal 9-18 [facility] Comment on above: Order Comment: Speci men Type: BLOOD SPECIMENOrdering Facility: [facility] Address: [address] [place] [place] [address] Performed By: #### 2 4321-2 ####[facility] LABORATORYCLIA [id number] [place] [address] [place] Calcium [Mass/Vol] 8.4 mg/dL Low 8.5-10.2 [facility] Comment on above: Order Comment: Speci men Type: BLOOD SPECIMENOrdering Facility: [facility] Address: [address] [place] [address] Performed By: #### 2 4321-2 ####[facility] LABORATORYCLIA [id number] [place] [address] [place] Chloride [Moles/Vol] 103 mmol/L Normal 97-105 [facility] Comment on above: Order Comment: Speci men Type: BLOOD SPECIMENOrdering Facility: [facility] Address: [address] [place] [address] Performed By: #### 2 4321-2 ####[facility] LABORATORYCLIA [id number] [place] [address] [place] CO2 [Moles/Vol] 24 mmol/L Normal 22-30 [facility] ital Comment on above: Order Comment: Speci men Type: BLOOD SPECIMENOrdering Facility: [facility] Address: [address] [place] [address] Performed By: #### 2 4321-2 ####[facility] LABORATORYCLIA [id number] [address] [place] Creatinine [Mass/Vol] 0.72 mg/dL Normal 0.58-0.96 [facility] Comment on above: Order Comment: Speci men Type: BLOOD SPECIMENOrdering Facility: [facility] Address: [address] [place] [address] Performed By: #### 2 4321-2 ####[facility] LABORATORYIA [id number] [address] [place] ESTIMATED GLOMERULAR FILTRATION RATE 103 mL/min/1.73m??? Normal >=60 [facility] l Comment on above: Order Comment: Speci men Type: BLOOD SPECIMENOrdering Facility: [facility] Address: [address] [place] [address] Result Comment: Carmen mated Glomerular Filtration Rate [...] actual GFR. Performed By: #### 2 4321-2 ####[facility] LABORATORYCLIA [id number] [place] [address] [place] Glucose [Mass/Vol] 118 mg/dL High 74-99 [facility] Comment on above: Order Comment: Speci men Type: BLOOD SPECIMENOrdering Facility: [facility] Address: [address] [place] [address] Result Comment: The [place] Diabetes [employer] (ADA) provides guidance for cutoff [...] Standards of Medical Care in Diabetes 2016, [place] [employer]. Diabetes Care. 2016.39(Suppl 1). Performed By: #### 2 4321-2 ####[facility] LABORATORYCLIA [id number] [place] [address] [place] Potassium [Moles/Vol] 3.6 mmol/L Low 3.7-5.1 [facility] Comment on above: Order Comment: Speci men Type: BLOOD SPECIMENOrdering Facility: [facility] Address: [address] [place] [address] Performed By: #### 2 4321-2 ####[facility] LABORATORYIA [id number] [place] [address] [place] Sodium [Moles/Vol] 138 mmol/L Normal 136-144 [facility] Comment on above: Order Comment: Speci men Type: BLOOD SPECIMENOrdering Facility: [facility] Address: [address] [place] [address] Performed By: #### 2 4321-2 ####[facility] [id number] [place] [address] [place] Urea nitrogen [Mass/Vol] 10 mg/dL Normal 7-21 [facility] Comment on above: Order Comment: Speci men Type: BLOOD SPECIMENOrdering Facility: [facility] Address: [address] [place] [address] Performed By: #### 2 4321-2 ####[facility] LABORATORYIA [id number] [address] [place] CBC panel Auto (Bld)on 01-11 Erythrocyte distribution width (RBC) [Ratio] 16.0 % High 11.5-15.0 [facility] Comment on above: Order Comment: Speci men Type: BLOOD SPECIMENOrdering Facility: [facility] Address: [address] [place] [address] Performed By: #### 5 8410-2 ####[facility] [id number] [address] [place] Hematocrit (Bld) [Volume fraction] 32.9 % Low 36.0-46.0 [facility] Comment on above: Order Comment: Speci men Type: BLOOD SPECIMENOrdering Facility: [facility] Address: [address] [place] [address] Performed By: #### 5 8410-2 ####[facility] [id number] [address] [place] Hemoglobin (Bld) [Mass/Vol] 10.2 g/dL Low 11.5-15.5 [facility] Comment on above: Order Comment: Speci men Type: BLOOD SPECIMENOrdering Facility: [facility] Address: [address] [place] [address] Performed By: #### 5 8410-2 ####[facility] [id number] [address] [place] MCH (RBC) [Entitic mass] 28.0 pg Normal 26.0-34.0 [facility] Comment on above: Order Comment: Speci men Type: BLOOD SPECIMENOrdering Facility: [facility] Address: [address] [place] [address] Performed By: #### 5 8410-2 ####[facility] LABORATORYIA [id number] [place] [address] [place] MCHC (RBC) [Mass/Vol] 31.0 g/dL Normal 30.5-36.0 [facility] Comment on above: Order Comment: Speci men Type: BLOOD SPECIMENOrdering Facility: [facility] Address: [address] [place] [address] Performed By: #### 5 8410-2 ####[facility] LABORATORYIA [id number] [place] [address] [place] MCV (RBC) [Entitic vol] 90.4 fL Normal 80.0-100.0 [facility] Comment on above: Order Comment: Speci men Type: BLOOD SPECIMENOrdering Facility: [facility] Address: [address] [place] [address] Performed By: #### 5 8410-2 ####[facility] [id number] [place] [address] [place] Nucleated RBC (Bld) [#/Vol] 10*3/uL Normal <0.01 [facility] Comment on above: Order Comment: Speci men Type: BLOOD SPECIMENOrdering Facility: [facility] Address: [address] [place] [address] Performed By: #### 5 8410-2 ####[facility] [id number] [place] [address] [place] Platelet mean volume (Bld) [Entitic vol] 10.6 fL Normal 9.0-12.7 [facility] Comment on above: Order Comment: Speci men Type: BLOOD SPECIMENOrdering Facility: [facility] Address: [address] [place] [address] Performed By: #### 5 8410-2 ####[facility] [id number] [place] [address] [place] Platelets (Bld) [#/Vol] 263 10*3/uL Normal 150-400 [facility] Comment on above: Order Comment: Speci men Type: BLOOD SPECIMENOrdering Facility: [facility] Address: [facility] [address] Performed By: #### 5 8410-2 ####[facility] LABORATORYIA [id number] [place] [address] [facility] RBC (Bld) [#/Vol] 3.64 10*6/uL Low 3.90-5.20 [facility] Comment on above: Order Comment: Speci men Type: BLOOD SPECIMENOrdering Facility: [facility] Address: [address] [place] [address] Performed By: #### 5 8410-2 ####[facility] [id number] [place] [address] [facility] WBC (Bld) [#/Vol] 13.19 10*3/uL High 3.70-11.00 [facility] Comment on above: Order Comment: Speci men Type: BLOOD SPECIMENOrdering Facility: [facility] Address: [address] [place] [address] Performed By: #### 5 8410-2 ####[facility] [id number] [address] CONSULT PROGon 01-11-2023 CONSULT PROG HNO ID: [id number] Author: Agustin Clark RPh Service: Pharmacy Author [...] Please contact pharmacy if there are questions. Augstin Clark RPh Normal [facility] ECG COMPLETEon 01-11-2023 ECG COMPLETE Ventricular Rate : 143 BPM Atrial Rate : 140 BPM P-R Interval : 176 ms QRS Duration : 77 ms Q-T Interval : 355 ms QTC Calculation(Bazett) : 548 ms Calculated R Moriches : 42 degrees Calculated T Moriches : -67 degrees Atrial fibrillation Confirmed by JOSE M DESAI MD ([id number]) on 01/14/2023 12:51:31 PM NAME : MITCHELL BROOKS PID : [id number] : 1975 Gender : Female Race : ORD : [id number] Procedure Date : Jan 11 2023 14:12:20 Edit Date : Jan 14 2023 12:51:34 Diagnosis: Atrial fibrillation Confirmed by JOSE M DESAI MD ([id number]) on 01/14/2023 12:51:31 PM Test Reason : Arrhythmia Location : 300 : EKG 506 Overread By : JOSE M DESAI MD Edited By : JOSE M DSEAI MD Referred By : ROMÁN CHANDLER Acquired by : LANDRY SCOTT [facility] THERAPY NT 01-11-2023 THERAPY NT HNO ID: [id number] Author: Chapis Forde PT, DPT Service: ? Author Type: Physical Therapist Type: Therapy (PT/OT/Speech/Resp) Filed: 01/11/2023 4:13 PM Note Text: Physical Therapy Evaluation SERVICE DATE: 01/11/2023 SERVICE TIME: 1459 to 1540 ROOM: [place] [address] Recommended Discharge Disposition: Home PT Recommended Discharge [...] and mobility-other Interventions Provided: Evaluation, Gait Training (00690), Therapeutic Activity (16098) $ Evaluation-Low (96715) Billed Units: 1 unit Therapeutic Activity (12898) Treatment Minutes: 10 $ Therapeutic Activity (96984) Billed Units: 1 unit Gait Training (30269) Treatment Minutes: 16 $ Gait Training (79026) Billed Units: 1 unit Training AND Education Pro (more content not included)... Normal [facility] Basic metabolic 2000 panelon 01-10-2023 Anion gap [Moles/Vol] 11 mmol/L Normal 9-18 [facility] Comment on above: Order Comment: Speci men Type: BLOOD SPECIMENOrdering Facility: [facility] Address: [address] [place] [address] Performed By: #### 2 4321-2 ####[facility] LABORATORYCLIA [id number] [place] [address] [place] Calcium [Mass/Vol] 8.8 mg/dL Normal 8.5-10.2 [facility]ital Comment on above: Order Comment: Speci men Type: BLOOD SPECIMENOrdering Facility: [facility] Address: [address] [place] [address] Performed By: #### 2 4321-2 ####[facility] LABORATORYCLIA [id number] [place] [address] [place] Chloride [Moles/Vol] 101 mmol/L Normal 97-105 [facility] Comment on above: Order Comment: Speci men Type: BLOOD SPECIMENOrdering Facility: [facility] Address: [address] [place] [address] Performed By: #### 2 4321-2 ####[facility] LABORATORYCLIA [id number] [place] [address] [place] CO2 [Moles/Vol] 27 mmol/L Normal 22-30 [facility] Comment on above: Order Comment: Speci men Type: BLOOD SPECIMENOrdering Facility: [facility] Address: [address] [place] [address] Performed By: #### 2 4321-2 ####[facility] [id number] [place] [address] [place] Creatinine [Mass/Vol] 0.67 mg/dL Normal 0.58-0.96 [facility] Comment on above: Order Comment: Speci men Type: BLOOD SPECIMENOrdering Facility: [facility] Address: [address] [place] [address] Performed By: #### 2 4321-2 ####[facility] [id number] [address] [place] ESTIMATED GLOMERULAR FILTRATION RATE 108 mL/min/1.73m??? Normal >=60 [facility] Comment on above: Order Comment: Speci men Type: BLOOD SPECIMENOrdering Facility: [facility] Address: [address] [place] [address] Result Comment: Carmen mated Glomerular Filtration Rate [...] actual GFR. Performed By: #### 2 4321-2 ####[facility] LABORATORYIA [id number] [place] [address] [place] Glucose [Mass/Vol] 111 mg/dL High 74-99 [facility] Comment on above: Order Comment: Speci men Type: BLOOD SPECIMENOrdering Facility: [facility] Address: [address] [place] [address] Result Comment: The [place] Diabetes [employer] (ADA) provides guidance for cutoff [...] Standards of Medical Care in Diabetes 2016, [place] [employer]. Diabetes Care. 2016.39(Suppl 1). Performed By: #### 2 4321-2 ####[facility] LABORATORYCLIA [id number] [place] [address] [place] Potassium [Moles/Vol] 3.9 mmol/L Normal 3.7-5.1 [facility] Comment on above: Order Comment: Speci men Type: BLOOD SPECIMENOrdering Facility: [facility] Address: [address] [place] [address] Performed By: #### 2 4321-2 ####[facility] [id number] [place] [address] [place] Sodium [Moles/Vol] 139 mmol/L Normal 136-144 [facility] Comment on above: Order Comment: Speci men Type: BLOOD SPECIMENOrdering Facility: [facility] Address: [address] [address] Performed By: #### 2 4321-2 ####[facility] LABORATORYCLIA [id number] [place] [address] [place] Urea nitrogen [Mass/Vol] 9 mg/dL Normal 7-21 [facility] Comment on above: Order Comment: Speci men Type: BLOOD SPECIMENOrdering Facility: [facility] Address: [address] [address] Performed By: #### 2 4321-2 ####[facility] LABORATORYCLIA [id number] [facility] [place] [address] [place] CBC W Auto Differential pane l (Bld)on 01-10-2023 Basophils (Bld) [#/Vol] 0.12 10*3/uL High <0.11 [facility] Comment on above: Order Comment: Speci men Type: BLOOD SPECIMENOrdering Facility: [facility] Address: [address] [place] [address] Performed By: #### 5 7021-8 ####[facility] [id number] [address] [place] Basophils/100 WBC (Bld) 0.4 % Normal [facility] Comment on above: Order Comment: Speci men Type: BLOOD SPECIMENOrdering Facility: [facility] Address: [address] [place] [address] Performed By: #### 5 7021-8 ####[facility] [id number] [address] [place] Differential cell count method Nom (Bld) Auto Normal [facility] Comment on above: Order Comment: Speci men Type: BLOOD SPECIMENOrdering Facility: [facility] Address: [address] [place] [address] Performed By: #### 5 7021-8 ####[facility] [id number] [place] [address] [place] Eosinophils (Bld) [#/Vol] 0.16 10*3/uL Normal <0.46 [facility] Comment on above: Order Comment: Speci men Type: BLOOD SPECIMENOrdering Facility: [facility] Address: [address] [place] [address] Performed By: #### 5 7021-8 ####[facility] [id number] [address] [place] Eosinophils/100 WBC (Bld) 0.5 % Normal [facility] Comment on above: Order Comment: Speci men Type: BLOOD SPECIMENOrdering Facility: [facility] Address: [address] [address] Performed By: #### 5 7021-8 ####[facility] [id number] [place] [address] [place] Erythrocyte distribution width (RBC) [Ratio] 16.1 % High 11.5-15.0 [facility] Comment on above: Order Comment: Speci men Type: BLOOD SPECIMENOrdering Facility: [facility] Address: [address] [address] Performed By: #### 5 7021-8 ####[facility] [id number] [place] [address] [place] Hematocrit (Bld) [Volume fraction] 35.7 % Low 36.0-46.0 [facility] Comment on above: Order Comment: Speci men Type: BLOOD SPECIMENOrdering Facility: [facility] Address: [address] [address] Performed By: #### 5 7021-8 ####[facility] [id number] [place] [address] [place] Hemoglobin (Bld) [Mass/Vol] 11.3 g/dL Low 11.5-15.5 [facility] Comment on above: Order Comment: Speci men Type: BLOOD SPECIMENOrdering Facility: [facility] Address: [address] [address] Performed By: #### 5 7021-8 ####[facility] [id number] [place] [address] [place] Immature granulocytes (Bld) [#/Vol] 0.34 10*3/uL High <0.10 [facility] Comment on above: Order Comment: Speci men Type: BLOOD SPECIMENOrdering Facility: [facility] Address: [address] [address] Performed By: #### 5 7021-8 ####[facility]ITALIA [id number] [place] [address] [place] Immature granulocytes/100 WBC (Bld) 1.2 % Normal [facility] Comment on above: Order Comment: Speci men Type: BLOOD SPECIMENOrdering Facility: [facility] Address: [address] [address] Performed By: #### 5 7021-8 ####[facility] LABORATORYCLIA [id number] [place] [address] [place] Lymphocytes (Bld) [#/Vol] 1.21 10*3/uL Normal 1.00-4.00 [facility] Comment on above: Order Comment: Speci men Type: BLOOD SPECIMENOrdering Facility: [facility] Address: [address] [address] Performed By: #### 5 7021-8 ####[facility] LABORATORYIA [id number] [address] [place] Lymphocytes/100 WBC (Bld) 4.2 % Normal [facility] Comment on above: Order Comment: Speci men Type: BLOOD SPECIMENOrdering Facility: [facility] Address: [address] [address] Performed By: #### 5 7021-8 ####[facility] LABORATORYIA [id number] [address] [place] MCH (RBC) [Entitic mass] 28.2 pg Normal 26.0-34.0 [facility] Comment on above: Order Comment: Speci men Type: BLOOD SPECIMENOrdering Facility: [facility] Address: [address] [address] Performed By: #### 5 7021-8 ####[facility] LABORATORYIA [id number] [address] [place] MCHC (RBC) [Mass/Vol] 31.7 g/dL Normal 30.5-36.0 [facility] Comment on above: Order Comment: Speci men Type: BLOOD SPECIMENOrdering Facility: [facility] Address: [address] [address] Performed By: #### 5 7021-8 ####[facility] LABORATORYIA [id number] [place] [address] [place] MCV (RBC) [Entitic vol] 89.0 fL Normal 80.0-100.0 [facility] Comment on above: Order Comment: Speci men Type: BLOOD SPECIMENOrdering Facility: [facility] Address: [address] [address] Performed By: #### 5 7021-8 ####[facility] [id number] [place] [address] [place] Monocytes (Bld) [#/Vol] 1.32 10*3/uL High <0.87 [facility] Comment on above: Order Comment: Speci men Type: BLOOD SPECIMENOrdering Facility: [facility] Address: [address] [address] Performed By: #### 5 7021-8 ####[facility] [id number] [address] [place] Monocytes/100 WBC (Bld) 4.5 % Normal [facility] Comment on above: Order Comment: Speci men Type: BLOOD SPECIMENOrdering Facility: [facility] Address: [address] [address] Performed By: #### 5 7021-8 ####[facility] [id number] [place] [address] [place] Neutrophils (Bld) [#/Vol] 25.97 10*3/uL High 1.45-7.50 [facility] Comment on above: Order Comment: Speci men Type: BLOOD SPECIMENOrdering Facility: [facility] Address: [address] [address] Performed By: #### 5 7021-8 ####[facility] [id number] [place] [id number] [place] Neutrophils/100 WBC (Bld) 89.2 % Normal [facility] Comment on above: Order Comment: Speci men Type: BLOOD SPECIMENOrdering Facility: [facility] Address: [address] Performed By: #### 5 7021-8 ####[facility] [id number] [place] [address] [place] Nucleated RBC (Bld) [#/Vol] 0.02 10*3/uL High <0.01 [facility] Comment on above: Order Comment: Speci men Type: BLOOD SPECIMENOrdering Facility: [facility] Address: [address] [address] Performed By: #### 5 7021-8 ####[facility] [id number] [place] [id number] [place] Nucleated RBC/100 WBC (Bld) [Ratio] 0.1 /100 WBC Normal [facility] Comment on above: Order Comment: Speci men Type: BLOOD SPECIMENOrdering Facility: [facility] Address: [address] Performed By: #### 5 7021-8 ####[facility] [id number] [place] [address] [place] Platelet mean volume (Bld) [Entitic vol] 10.7 fL Normal 9.0-12.7 [facility] l Comment on above: Order Comment: Speci men Type: BLOOD SPECIMENOrdering Facility: [facility] Address: [address] Performed By: #### 5 7021-8 ####[facility] [id number] [facility] [place] [address] [place] Platelets (Bld) [#/Vol] 309 10*3/uL Normal 150-400 [facility] Comment on above: Order Comment: Speci men Type: BLOOD SPECIMENOrdering Facility: [facility] Address: [address] Performed By: #### 5 7021-8 ####[facility]ATORYIA [id number] [place] [id number] [place] RBC (Bld) [#/Vol] 4.01 10*6/uL Normal 3.90-5.20 [facility] Comment on above: Order Comment: Speci men Type: BLOOD SPECIMENOrdering Facility: [facility] Address: [place] [address] Performed By: #### 5 7021-8 ####[facility]ORATORYCLIA [id number] [place] [address] [facility] WBC (Bld) [#/Vol] 29.12 10*3/uL High 3.70-11.00 [facility] Comment on above: Order Comment: Speci men Type: BLOOD SPECIMENOrdering Facility: [facility] Address: [place] [address] Performed By: #### 5 7021-8 ####[facility] LABORATORYCLIA [id number] [place] [address] [facility] CONSULTon 01-10-2023 CONSULT HNO ID: [id number] Author: Myke Ross MD Service: Infectious Disease [...] mL (0.083 (more content not included)... Normal [facility] CONSULT PROGon 01-10-2023 CONSULT PROG HNO ID: [id number] Author: Dorothy Steward RPh Service: Pharmacy Author Type: Pharmacist Type: Consult Progress Note Filed: 01/10/2023 8:24 AM Note Text: PHARMACY VANCOMYCIN DOSING NOTE Patient Name: Mitchell Brooks Admission Date: 01/10/2023 Date of Consult: 01/10/2023 Time of Consult: 8:23 AM Indication: Skin/Soft tissue infection Goal Range: 10-20 mcg/mL RECOMMENDATIONS/PLAN : Pharmacy consulted for vancomycin dosing for Mitchell Brokos, a 47 year old female. 1. Patient [...] (H) 07/20/2013 0703 22.8 (H) Dorothy Steward [facility] Normal [facility] HISTORY PHYSICALon HISTORY PHYSICAL HNO ID: [id number] Author: Leigh Ann Valerio APRN.CNP Service: Hospital Medicine Author Type: Nurse Practitioner Type: HANDP Filed: 01/10/2023 3:47 AM Note Text: DEPARTMENT OF HOSPITAL MEDICINE HISTORY AND PHYSICAL EXAM SERVICE DATE: 01/10/2023 Code Status: Not on file SERVICE TIME: 3:18 AM Primary Care Physician: No primary care provider on file. NIGHT AND WEEKEND COVERAGE: TANANA COVERAGE: Days: [phone], please contact via [employer] Nights: [phone] - floor: please page Hospitalist night cover [phone] - 4th floor: please page Hospitalist night cover [phone] - 5th floor: please page Hospitalist night cover [phone] Subjective CHIEF COMPLAINT: chills, generalized weakness HPI: [...] none since. Denies dysuria. On arrival to [place] ED T 101.1, HR 127 and p [...] syndrome Lymphedema Morbid obesity (HCC) Necrotizing fasciitis ([facility]) 08/14/2012 thigh wound Septic shock ([facility]) 07/20/2013 On Dopamine, vasopressine and NE upon [...] Unknown acetaminophen ( (more content not included)... [facility] NURSING PROGon 01-10-2023 NURSING PROG HNO ID: [id number] Author: Patricia Allemeier, RN Service: Nursing Author [...] in reach. [phone] Pt sister, Marsha Estevez [phone], called asking for update on condition- pt ok'd speaking to her and update provided by RN. [facility] NURSING PROG HNO ID: [id number] Author: Sis Laird RN Service: Nursing Author Type: Registered Nurse Type: Nursing Progress Note Filed: 01/10/2023 8:15 AM Note Text: Transfer Note: Patient transferred into room/unit 506 from outside hospital in stable condition. Actions taken: patient oriented to room, safety precautions. patient instructed on hospital's no smoking policy. nicotine patch offered, patient refused. [facility] XR KNEE 2V AP/LAT RTon 01-10 [...] compartment of the right knee. Marginal osteophytes Cost Clerk: PSCB Transcribe Date/Time: Jan 10 2023 4:19P Dictated by : ROSI GARCIA MD This examination was interpreted and the report reviewed and electronically signed by: ROSI GARCIA MD on Jan 10 2023 4:20PM EST [id number] CN [facility] Absolute lymphocyte countOrd ered By: Dr. Watson on 11-08-2022 Lymphocytes Auto (Unsp spec) [#/Vol] 2.52 10*3/uL 0.83-4.51 [facility] Basophil percentageOrdered B y: Dr. Watson on 11-08-2022 Basophils/100 WBC (Bld) 0.8 % 0-1 [facility] Bilirubin [Mass/Vol] 0.30 mg/dL 0.20-1.00 [place] Comment on above: For patients on eltr ombopag therapy, use of Dimension [place] TBIL is not recommended. Chloride [Moles/Vol] 103 mmol/L 98-107 [place] Eosinophils/100 WBC (Bld) 1.8 % 0-5 [facility] Glucose [Mass/Vol] 101 mg/dL 74-106 [facility] Comment on above: Fasting Glucose resu lt from 100 to 125 mg/dL suggests IMPAIRED HOMEOSTASIS per A.D.A. criteria. Neutrophils (Bld) [#/Vol] 5.5 10*3/uL 2.0-7.7 [facility] Neutrophils/100 WBC (Bld) 62.5 % 47-70 [facility] Potassium [Moles/Vol] 4.1 mmol/L 3.5-5.1 [facility] Comment on above: Slight Hemolysis, Re sult may be falsely increased. Protein [Mass/Vol] 7.3 g/dL 6.4-8.2 [facility] Sodium [Moles/Vol] 137 mmol/L 136-145 [facility] WBC (Bld) [#/Vol] 8.8 10*3/uL 4.4-11.0 [facility] Blood erythrocytes count (nu mber/volume)Ordered By: Dr. Watson on 11-08-2022 RBC (Bld) [#/Vol] 4.30 10*6/uL 4.2-5.4 [facility] Blood hemoglobin measurement (mass/volume)Ordered By: Dr. Watson on 11-08-2022 Hemoglobin (Bld) [Mass/Vol] 12.6 g/dL 12.0-15.0 [facility] Blood lymphocytes/100 leukoc ytesOrdered By: Dr. Watson on 11-08-2022 Lymphocytes/100 WBC (Bld) 28.5 % 19-41 [facility] Blood monocytes/100 leukocyt esOrdered By: Dr. Watson on 11-08-2022 Monocytes/100 WBC (Bld) 5.8 % 0-10 [facility] Blood platelet mean volumeOr dered By: Dr. Watson on 11-08-2022 Platelet mean volume (Bld) [Entitic vol] 10.9 fL 6.2-12.0 [facility] Determination of erythrocyte mean corpuscular volume (MCV)Ordered By: Dr. Watson on 11-08-2022 MCV (RBC) [Entitic vol] 95.6 fL 81-99 [facility] Hematocrit Auto (Bld) [Volum e fraction]Ordered By: Dr. Watson on 11-08-2022 Hematocrit (Bld) [Volume fraction] 41.1 % 37-47 [facility] Laboratory - Chemistry and C hemistry - challengeOrdered By: Dr. Watson on 11-08-2022 ALP [Catalytic activity/Vol] 100 U/L 45-117 [facility] ALT [Catalytic activity/Vol] 24 U/L 13-56 [facility] CO2 [Moles/Vol] 27.0 mmol/L 21.0-32.0 [facility] Globulin (S) [Mass/Vol] 4.0 g/dL 2.2-4.2 [facility] Urea nitrogen/Creatinine [Mass ratio] 13.3 mg/mg 10-20 [facility] - Hematology and Cell countsOrdered By: Dr. Watson on 11-08-2022 Erythrocyte distribution width (RBC) [Entitic vol] 56.2 fL 35.1-43.9 [facility] Erythrocyte distribution width (RBC) [Ratio] 16.5 % 11.6-14.6 [facility] Immature granulocytes/100 WBC (Bld) 0.600 % 0.0-0.9 [facility] Comment on above: IG% - Immature Granu locytes (promyelocytes, myelocytes and metamyelocytes) > 1% indicates that a LEFT SHIFT is Present. MCH (RBC) [Entitic mass] 29.3 pg 27.0-32.0 [facility] Nucleated RBC/100 WBC (Bld) [Ratio] 0 % 0-5 [facility] Auto (RBC) [Mass/Vol]Or dered By: Dr. Watson on 11-08-2022 MCHC (RBC) [Mass/Vol] 30.7 g/dL 32-36 [facility] No Panel InformationOrdered By: Dr. Watson on 11-08-2022 Estimated GFR (MDRD) Amer 105 mL/min >60 [facility] Comment on above: GFR Calc Estimated GFR (MDRD) Non-Af Amer 87 mL/min >60 [facility] Comment on above: Non- GFR Calc Thyroid Stimulating Hormone (TSH) 1.12 uIU/mL 0.358-3.74 [facility] Platelets bldOrdered By: Dr. Watson on 11-08-2022 Platelets (Bld) [#/Vol] 334 10*3/uL 150-450 [facility] Serum or plasma albumin chema urement (mass/volume)Ordered By: Dr. Watson on 11-08-2022 Albumin [Mass/Vol] 3.3 g/dL 3.2-5.0 [facility] Serum or plasma albumin/glob ulin mass ratioOrdered By: Dr. Watson on 11-08-2022 Albumin/Globulin [Mass ratio] 0.8 {ratio} 0.9-2.4 [facility] Serum or plasma calcium chema urement (mass/volume)Ordered By: Dr. Watson on 11-08-2022 Calcium [Mass/Vol] 9.3 mg/dL 8.5-10.1 [facility] Serum or plasma creatinine m easurement (mass/volume)Ordered By: Dr. Watson on 11-08-2022 Creatinine [Mass/Vol] 0.75 mg/dL 0.55-1.02 [facility] Comment on above: The validity of the calculated GFR & GFRAA in patients over 70 years has not been determined. Clinical correlation is essential. Serum or plasma urea nitroge n measurement (mass/volume)Ordered By: Dr. Watson on 11-08-2022 Urea nitrogen [Mass/Vol] 10 mg/dL 7-18 [facility] Thin prep Papanicolaou smear with manual screeningOrdered By: Dr. Watson on 11-08-2022 Thin prep Papanicolaou smear with manual screening 21 U/L 15-37 [facility] Comment on above: Slight Hemolysis, Re sult may be falsely increased. Thin prep Papanicolaou smear with manual screening 7 5-[address] [facility] [address] BRAIN WO IVCONon 08-19-[address] BRAIN WO IVCON Final Report DATE OF EXAM: Aug 18 2020 10:27PM [facility] 0504 - CT BRAIN WO IVCON / [...] calvarial outer table bony exostosis (reference 4:80). Manager Terminal (topogram) images: No significant findings. IMPRESSION: No CT evidence of acute intracranial abnormality (within constraints of scan quality). Other: Few minor details above. Cost Clerk: PSCB Transcribe Date/Time: Aug 18 2020 10:30P Dictated by : SHELDON MARQUEZ MD This examination was interpreted and the report reviewed and electronically signed by: SHELDON MARQUEZ MD on Aug 18 2020 10:33PM EST Normal [facility] CT CERVICAL SPINE WO IVCONon 08-19-2020 CT CERVICAL SPINE WO IVCON Final Report DATE OF EXAM: Aug 18 2020 10:30PM [facility] 0505 - CT CERVICAL SPINE WO IVCON [...] Counting reference: Craniocervical junction. Anatomic Variants: None. Manager Terminal (topogram) images: Unremarkable. Alignment: Alignment is anatomic. [...] and moderate bilateral foraminal stenosis at C6-7. Cost Clerk: PSCB Transcribe Date/Time: Aug 18 2020 10:38P Dictated by : JOHN HASTINGS MD This examination was interpreted and the report reviewed and electronically signed by: JOHN HASTINGS MD on Aug 18 2020 10:41PM EST Normal [facility] XR KNEE 4V AP/LAT/OBLS LTon 08-19-2020 XR [...] SEVERE IN THE MEDIAL TIBIOFEMORAL JOINT MUÑIZ. Cost Clerk: DEB Transcribe Date/Time: Aug 18 2020 11:22P Dictated by : RONNI SHARMA MD This examination was interpreted and the report reviewed and electronically signed by: RONNI SHARMA MD on Aug 18 2020 11:26PM EST Normal [facility] .Auto Diffon 07-11-2018 Ammonia (P) [Mass/Vol] 0.60 10 3/mcL Normal 0.15-1.00 [facility] ([place]) Comment on above: Performed By: #### C ISMAEL CARREON ANEU #### [address] [address] Basophils (Bld) [#/Vol] 0.10 10 3/mcL Normal 0.00-0.19 [facility] ([place]) Comment on above: Performed By: #### ISMAEL MCPHERSON ANEU #### [address] [address] Basophils/100 WBC (Bld) 0.7 % Normal 0.0-2.5 A Pending sale to [facility] ([place]) Comment on above: Performed By: #### ISMAEL MCPHERSON ANEU #### [address] [address] Eosinophils (Bld) [#/Vol] 0.10 10 3/mcL Normal 0.00-0.40 [facility] ([place]) Comment on above: Performed By: #### C BC, ADIFF, ANEU #### [address] [address] Eosinophils/100 WBC (Bld) 0.6 % Normal 0.0-7.0 [facility] ([place]) Comment on above: Performed By: #### C ISMAEL CARREON, ANEU #### [address] [address] Lymphocytes (Bld) [#/Vol] 1.60 10 3/mcL Normal 0.77-3.85 [facility] ([place]) Comment on above: Performed By: #### C ISMAEL CARREON, ANEU #### [address] [address] Lymphocytes/100 WBC (Bld) 12.7 % Normal 10.0-50.0 [facility] ([place]) Comment on above: Performed By: #### C ISMAEL CARREON, ANEU #### [address] [address] Monocytes/100 WBC (Bld) 4.6 % Normal 1.7-13.0 A Pending sale to [facility] ([place]) Comment on above: Performed By: #### ISMAEL MCPHERSON, ANEU #### [address] [address] Neutrophils/100 WBC (Bld) 81.4 % High 37.0-80.0 [facility] ([place]) Comment on above: Performed By: #### ISMAEL MCPHERSON, ANEU #### [address] [address] .GFRon 07-11-2018 GFR 97 ml/min/1.73sqm Normal [facility] ([place]) Comment on above: Result Comment: [...] Performed By: #### G , BMP #### [address] [address] GFR Non- 80 ml/min/1.73sqm Normal [facility] ([place]) Comment on above: Result Comment: GFR Population [...] Performed By: #### G , BMP #### [address] [address] .NEUABSon 07-11-2018 Neutrophils (Bld) [#/Vol] 10.10 10 3/mcL High 2.85-6.16 [facility] ([place]) Comment on above: Performed By: #### ISMAEL MCPHERSON, KLEVER #### [address] [address] .Urinalysis Microscopic (AO) on 07-11-2018 RBC (U) [#/Vol] None Seen Normal None Seen [facility] ([place]) Comment on above: Performed By: #### U A, UAMICAO #### [address] [address] UA Squam Epithelial None Seen Normal None Seen [facility] ([place]) Comment on above: Performed By: #### U A, UAMICAO #### [address] [address] UA WBC None Seen Normal None Seen [facility] ([place]) Comment on above: Performed By: #### Farshad Simomns UAMICAO #### [address] [address] BMPon 07-11-2018 Urea nitrogen [Mass/Vol] 15 mg/dL Normal 7-18 [facility] ([place]) Comment on above: Performed By: #### Stephie FR, BMP #### [address] [address] Urea nitrogen/Creatinine [Mass ratio] 19 ratio Normal 7-27 [facility] ([place]) Comment on above: Performed By: #### Stephie BETANCUR, BMP #### [address] [address] Calcium [Mass/Vol] 8.5 mg/dL Normal 8.4-10.2 [facility] ([place]) Comment on above: Performed By: #### Stephie BETANCUR, BMP #### [address] [address] Chloride [Moles/Vol] 102 mmol/L Normal 98-107 [facility] ([place]) Comment on above: Performed By: #### Stephie BETANCUR, BMP #### [address] [address] CO2 [Moles/Vol] 30 mmol/L High 22-29 [facility] ([place]) Comment on above: Performed By: #### Stephie FR, BMP #### [address] [address] Creatinine [Mass/Vol] 0.78 mg/dL Normal 0.55-1.02 [facility] ([place]) Comment on above: Performed By: #### G FR, BMP #### [address] [address] Electrolyte Balance 8.0 mEq/L Normal [facility] ([place]) Comment on above: Performed By: #### G FR, BMP #### [address] [address] Glucose [Mass/Vol] 117 mg/dL High 70-105 [facility] ([place]) Comment on above: Performed By: #### G FR, BMP #### [address] [address] Potassium [Moles/Vol] 3.4 mmol/L Low 3.5-5.1 [facility] ([place]) Comment on above: Performed By: #### G , BMP #### [address] [address] Sodium [Moles/Vol] 140 mmol/L Normal 136-145 [facility] ([place]) Comment on above: Performed By: #### G , BMP #### [address] [address] CBCon 07-11-2018 Erythrocyte distribution width (RBC) [Ratio] 15.3 % High 11.5-14.5 [facility] ([place]) Comment on above: Performed By: #### C ISMAEL CARREON, KLEVER #### [address] [address] Hematocrit (Bld) [Volume fraction] 41.4 % Normal 37.0-47.0 [facility] ([place]) Comment on above: Performed By: #### ISMAEL MCPHERSON, ANEU #### [address] [address] Hemoglobin (Bld) [Mass/Vol] 13.2 G/dL Normal 12.0-16.0 [facility] ([place]) Comment on above: Performed By: #### ISMAEL MCPHERSON, ANEU #### [address] [address] MCH (RBC) [Entitic mass] 29.5 pg Normal 27.0-31.2 [facility] ([place]) Comment on above: Performed By: #### C ISMAEL CARREON, ANEU #### [address] [address] MCHC (RBC) [Mass/Vol] 32.0 G/dL Low 33.0-37.0 [facility] ([place]) Comment on above: Performed By: #### C BCISMAEL, ANEU #### [address] [address] MCV (RBC) [Entitic vol] 92.1 fL Normal 80.0-94.0 A Pending [facility] to [facility] ([place]) Comment on above: Performed By: #### ISMAEL MCPHERSON ANEU #### [address] [address] Platelet mean volume (Bld) [Entitic vol] 10.0 fL Normal 7.4-10.4 [facility] ([place]) Comment on above: Performed By: #### ISMAEL MCPHERSON, ANEU #### [address] [address] Platelets (Bld) [#/Vol] 291 10 3/mcL Normal 130-400 [facility] ([place]) Comment on above: Performed By: #### C ISMAEL CARREON, ANEU #### [address] [address] RBC (Bld) [#/Vol] 4.49 10 6/mcL Normal 4.20-5.40 [facility] ([place]) Comment on above: Performed By: #### C ISMAEL CARREON, ANEU #### [address] [address] WBC (Bld) [#/Vol] 12.50 10 3/mcL High 4.60-10.80 [facility] ([place]) Comment on above: Performed By: #### ISMAEL MCPHERSON, ANEU #### [address] [address] UAon 07-11-2018 Color (U) Yellow Normal [facility] ([place]) Comment on above: Performed By: #### U A, UAMICAO #### [address] [address] Glucose (U) [Mass/Vol] Negative Normal Negative [facility] ([place]) Comment on above: Performed By: #### U A, UAMICAO #### [address] [address] Ketones Ql (U) Negative Normal Negative [facility] ([place]) Comment on above: Performed By: #### U A, UAMICAO #### [address] [address] UA Appear Clear Normal Clear [facility] ([place]) Comment on above: Performed By: #### U A, UAMICAO #### [address] [address] UA Blood Negative Normal Negative [facility] ([place]) Comment on above: Performed By: #### U A, UAMICAO #### [address] [address] UA Leuk Est Negative Normal Negative [facility] ([place]) Comment on above: Performed By: #### U A, UAMICAO #### [place] [address] UA Nitrite Negative Normal Negative [facility] ([place]) Comment on above: Performed By: #### U A, UAMICAO #### [place] [address] UA pH 6.5 [facility] ([place]) Comment on above: Performed By: #### U A, UAMICAO #### [address] [address] UA Protein Negative Normal Negative [facility] ([place]) Comment on above: Performed By: #### U A, UAMICAO #### [address] [address] UA Spec Grav 1.015 Normal [facility] ([place]) Comment on above: Performed By: #### U A, UAMICAO #### [address] [address] UA Specimen Type Clean Catch [facility] ([place]) Comment on above: Performed By: #### U A, UAMICAO #### [place] [address] UA Urobilinogen 0.2 E.U./dL [facility] ([place]) Comment on above: Performed By: #### U A, UAMICAO #### [place] [address] Urobilinogen Qn (U) Negative Normal Negative [facility] ([place]) Comment on above: Performed By: #### U BC Simmons #### [address] [address] CR Knee 1 or 2 Views Lefton 06-30-2018 CR Knee 1 or 2 Views Left Patient Name: MITCHELL BROOKS Diagnostic Radiology Exam Date/Time 06/29/2018 14:30:00 EST Exam CR Knee 1 or 2 Views Left Ordering Physician LOIS FONTANA Accession Number [id number] CPT4 Codes 00611 () Reason For Exam Other unilateral secondary [...] Transcribed Date and Time: 06/29/2018 11:32 Normal [facility] CR Knee Standing Bilateralon 06-30-2018 CR Knee Standing Bilateral Patient Name: MITCHELL BROOKS Diagnostic Radiology Exam Date/Time 06/29/2018 14:30:00 EST Exam CR Knee Standing AP Bilateral Ordering Physician LOIS FONTANA Accession Number [id number] CPT4 Codes 40208 () Reason For Exam Other unilateral secondary [...] Transcribed Date and Time: 06/29/2018 11:32 Normal [facility] .GFRon 05-09-2018 GFR 103 ml/min/1.73sqm Normal [facility] ([place]) Comment on above: Result Comment: GFR Population [...] Performed By: #### B MP, GFR #### [place] [address] GFR Non- 85 ml/min/1.73sqm Normal [facility] ([place]) Comment on above: Result Comment: GFR Population [...] Performed By: #### B MP, GFR #### [address] [address] BMPon 05-09-2018 Calcium [Mass/Vol] 9.5 mg/dL Normal 8.4-10.2 [facility] ([place]) Comment on above: Performed By: #### B MP, GFR #### [address] [address] Chloride [Moles/Vol] 102 mmol/L Normal 98-107 [facility] ([place]) Comment on above: Performed By: #### B MP, GFR #### [address] [address] CO2 [Moles/Vol] 30 mmol/L High 22-29 [facility] ([place]) Comment on above: Performed By: #### B MP, GFR #### [address] [address] Creatinine [Mass/Vol] 0.74 mg/dL Normal 0.55-1.02 [facility] ([place]) Comment on above: Performed By: #### B MP, GFR #### [address] [address] Electrolyte Balance 9.0 mEq/L Normal [facility] ([place]) Comment on above: Performed By: #### B MP, GFR #### [address] [address] Glucose [Mass/Vol] 94 mg/dL Normal 70-105 [facility] ([place]) Comment on above: Performed By: #### B MP, GFR #### [address] [address] Potassium [Moles/Vol] 4.3 mmol/L Normal 3.5-5.1 [facility] ([place]) Comment on above: Performed By: #### B MP, GFR #### [address] [address] Sodium [Moles/Vol] 141 mmol/L Normal 136-145 [facility] ([place]) Comment on above: Performed By: #### B MP, GFR #### [address] [address] Urea nitrogen [Mass/Vol] 13 mg/dL Normal 7-18 [facility] ([place]) Comment on above: Performed By: #### B MP, GFR #### [address] [address] Urea nitrogen/Creatinine [Mass ratio] 18 ratio Normal 7-27 [facility] ([place]) Comment on above: Performed By: #### B MP, GFR #### [facility] [address] [place] [address] Vital Signs Date Time Vital Sign Value Performing Clinician Facility 04-24-2024 20:29-0400 Blood Pressure Location SCARLETT SEFFENS SENIOR DESIGNER/ART DIRECTOR-MACHINES TECHNICIAN [facility] 04-24-2024 20:29-0400 Blood Pressure Method SCARLETT SEFFENS SENIOR DESIGNER/ART DIRECTOR-MACHINES TECHNICIAN [facility] 04-24-2024 20:29-0400 Body temperature 96.8 [degF] SCARLETT SEFFENS SENIOR DESIGNER/ART DIRECTOR-MACHINES TECHNICIAN [facility] 04-24-2024 20:29-0400 Diastolic Blood Pressure Non-Invasive 64 mm[Hg] SCARLETT SEFFENS SENIOR DESIGNER/ART DIRECTOR-MACHINES TECHNICIAN [facility] 04-24-2024 20:29-0400 Heart rate 70 /min SCARLETT SEFFENS SENIOR DESIGNER/ART DIRECTOR-MACHINES TECHNICIAN [facility] 04-24-2024 20:29-0400 Systolic Blood Pressure Non-Invasive 100 mm[Hg] SCARLETT SEFFENS SENIOR DESIGNER/ART DIRECTOR-MACHINES TECHNICIAN [facility] 09-26-2022 14:12-0500 Body height 157.[address] Nabila Watson Work Phone: [facility] 09-26-2022 14:12-0500 Body mass index (BMI) [Ratio] 60.5 kg/m2 Dr. Nabila Watson Work Phone: [facility] 09-26-2022 14:12-0500 Body weight 150.[address] Nabila Watson Work Phone: [facility] Encounters Encounter Date Encounter Type Care Provider Facility Start: 03-28-2025 ambulatory Annette Samano NP Facili ty:[facility] Start: 02-05-2025 End: 02-05-2025 Follow-up encounter SCARLETT ROSENBERG SENIOR DESIGNER/ART DIRECTOR-MACHINES TECHNICIAN [facility] Start: 01-29-2025 End: 01-29-2025 ambulatory Annette Samano ACID DUMPER-C Work Phone: [facility] Work Phone: Start: 01-29-2025 End: 01-29-2025 Patient encounter procedure Annette Samano ACID DUMPER-C -Home Health Lab Start: 01-29-2025 End: 01-29-2025 ambulatory Annette Samano NP Facility:[facility] Start: 01-23-2025 End: 01-23-[address] REUBEN LION MD Facility:[facility] Start: 01-23-2025 End: 01-23-[address] REUBEN LION MD [facility] Start: 01-09-2025 End: 01-24-2025 Evaluation and management of inpatient KEATON Wahl JAIMIE SENIOR DESIGNER/ART DIRECTOR-MACHINES TECHNICIAN [facility] Start: 01-02-2025 End: 01-09-2025 Evaluation and management of inpatient DR JAKE COPPOLA DO [facility] Start: 01-01-2025 End: 01-02-2025 Emergency department patient visit DR JAKE COPPOLA DO Facility:[facility] Start: 12-28-2024 End: 12-28-2024 Emergency department patient visit ANNETTE SAMANO Facility:[facility] Start: 12-25-2024 End: 12-25-2024 Emergency department patient visit ANNETTE SAMANO Facility:[facility] Start: 06-24-2024 ambulatory Yung Elier Facility:[facility] Start: 05-16-2024 End: 05-16-2024 ambulatory Yung Elier Facility:[facility] Start: 04-24-2024 End: 04-24-2024 AMB External Visit SCARLETT BAHENAWANDER SENIOR DESIGNER/ART DIRECTOR-MACHINES TECHNICIAN [facility] Start: 04-05-2024 End: 04-05-2024 Emergency department patient visit MELODIE BLANCAS Facility:[facility] Start: 03-25-2024 End: 04-17-2024 Telephone encounter Joyce Sierra SENIOR DESIGNER/ART DIRECTOR - MACHINES TECHNICIAN Work Phone: [facility] Comment on above: Cancelled Appointmen t Start: 02-16-[address] Agustin Carrillo Facility:[id number] Start: 01-26-2023 Telephone encounter Nabila pope MD Work Phone: Hematology Comment on above: Patient Question (Re ferral ) Start: 01-10-2023 End: 01-14-2023 Evaluation and management of inpatient ROMÁN CHANDLER Facility:[facility] Start: 11-08-2022 End: 11-08-[address] Nabila Watson Work Phone: [facility] Work Phone: Start: 11-08-2022 End: 11-08-[address] [facility] Start: 09-26-2022 End: 09-26-[address] Nabila Watson Work Phone: [facility] Start: 07-24-2022 Refill West Gonzalez SENIOR DESIGNER/ART DIRECTOR.MACHINES TECHNICIAN Work Phone: [facility] Comment on above: Refill Request Start: 06-24-2022 ambulatory Geraldine Suggs MA [facility] Comment on above: ED OUTREACH (ED OUTR EACH/) Start: 11-26-2021 End: 11-26-[address] Nabila Watson Work Phone: [facility] Start: 11-26-2021 End: 11-26-[address] Nabila Watson Work Phone: [facility] Start: 06-29-2018 Patient encounter procedure [facility] Procedures Date Procedure Procedure Detail Performing Clinician Start: 01-29-2025 Urnls dip stick/tabl et reagent auto microscopy Annette Samano ACID DUMPER-C Work Phone: Start: 01-29-2025 Urine culture Annette lombardi ACID DUMPER-C Work Phone: Start: 02-16-2023 Follow-up visit Start: 07-19-2016 Klippel-Feil sequenc e (disorder) SCARLETT ROSENBERG SENIOR DESIGNER/ART DIRECTOR-MACHINES TECHNICIAN Comment on above: C5-C6 Start: 09-04-2014 Mammography Geraldine Klicm an MA Abdominal (qualifier value) SCARLETT ROSENBERG SENIOR DESIGNER/ART DIRECTOR-MACHINES TECHNICIAN Cellulitis (morpholo gic abnormality) SCARLETT ROSENBERG SENIOR DESIGNER/ART DIRECTOR-MACHINES TECHNICIAN Cellulitis (morpholo gic abnormality) DR REUBEN LION MD Comment on above: inner upper thigh- R T side section SCARLETT BARROS SENIOR DESIGNER/ART DIRECTOR-MACHINES TECHNICIAN Comment on above: 1993 and 1995 Epidural injection o f lumbar spine using fluoroscopic guidance SCARLETT ROSENBERG SENIOR DESIGNER/ART DIRECTOR-MACHINES TECHNICIAN Tonsillectomy and adenoidectomy SCARLETT ROSENBERG SENIOR DESIGNER/ART DIRECTOR-MACHINES TECHNICIAN Plan of Treatment Date Care Activity Detail Author Start: 2034 RSV Immunization aged 60 or older (1 - 1-dose 60+ series) RSV Immunization aged 60 or older (1 - 1-dose 60+ series) [facility] Start: 03-29-2028 DTaP/Tdap/Td Vaccines (7 - Td or Tdap) DTaP/Tdap/Td Vaccines (7 - Td or Tdap) [facility] Start: 03-29-2028 Urine microalbumin profile DTAP,TDAP,TD (7 - Td or Tdap) [facility] Start: 01-13-2026 DIABETES SCREEN DIABETES SCREEN [facility] Start: 06-22-2025 DIABETES SCREEN DIABETES SCREEN [facility] Start: 06-22-2025 Urine microalbumin profile DTAP,TDAP,TD (6 - Td or Tdap) [facility] Start: 07-01-2024 End: 07-01-2024 Patient encounter procedure 07/01/2024 11:20 AM EST Office Visit [facility] [address] [place] [address] Joyce Sierra APRN - [address] [id number] [facility] Start: 04-14-2024 COVID-19 Vaccine ( season) COVID-19 Vaccine ( season) [facility] Start: 04-14-2024 Influenza vaccination Influenza Vaccine (#1) [facility] Start: 2024 Zoster Vaccines (1 of 2) Zoster Vaccines (1 of 2) [facility] Start: 08-14-2022 DEPRESSION ASSESSMENT DEPRESSION ASSESSMENT [facility] Start: 04-14-2022 Influenza vaccination INFLUENZA (#1) [facility] Start: 08-14-2021 DEPRESSION ASSESSMENT DEPRESSION ASSESSMENT [facility] Start: 03-02-2020 HPV TESTING HPV TESTING [facility] Start: 03-02-2020 PAP TESTING PAP TESTING [facility] Start: 2019 COLOGUARD (FIT-DNA) COLOGUARD (FIT-DNA) [facility] Start: 2019 COLORECTAL CANCER SCREENING COLORECTAL CANCER SCREENING [facility] Start: [address] COLONOGRAPHY [facility] Start: 2019 FECAL OCCULT BLOOD FECAL OCCULT BLOOD [facility] Start: 2019 LIPID SCREEN LIPID SCREEN [facility] Start: 2019 SIGMOIDOSCOPY SIGMOIDOSCOPY [facility] Start: 05-10-2018 PNEUMOCOCCAL (2 - PCV) PNEUMOCOCCAL (2 - PCV) [facility] Start: 05-10-2018 Pneumococcal Vaccine: Pediatrics (0 to 5 Years) and At-Risk Patients (6 to 64 Years) (2 of 2 - PCV) Pneumococcal Vaccine: Pediatrics (0 to 5 Years) and At-Risk Patients (6 to 64 Years) (2 of 2 - PCV) [facility] Start: 09-04-2015 Mammography MAMMOGRAM [facility] Start: 09-04-2015 PNEUMOCOCCAL (2 - PCV) PNEUMOCOCCAL (2 - PCV) [facility] Start: 2014 Screening for malignant neoplasm of breast Mammogram [facility] Start: 04-19-2013 COLORECTAL CANCER SCREENING COLORECTAL CANCER SCREENING [facility] Start: 2004 Screening for malignant neoplasm of cervix [facility] Start: 2004 Zoledronic acid therapy ALPHA-1 ANTITRYPSIN DEFICIENCY SCREENING [facility] Start: 1995 Screening for malignant neoplasm of cervix Pap Smear [facility] Start: 1993 Hepatitis B Vaccines (1 of 3 - 19+ 3-dose series) Hepatitis B Vaccines (1 of 3 - 19+ 3-dose series) [facility] Start: 1992 ANNUAL PCP TEAM CHRONIC DISEASE VISIT ANNUAL PCP TEAM CHRONIC DISEASE VISIT [facility] Start: 1992 BP CONTROLLED (<130/80) BP CONTROLLED (<130/80) [facility] Start: 1992 Colonoscopy COLONOSCOPY [facility] Start: 1992 Diabetes mellitus screening Diabetes Screening [facility] Start: 1992 HEPATITIS C SCREENING HEPATITIS C SCREENING [facility] Start: 1992 Hepatitis C screening Hepatitis C Screening [facility] Start: 1992 HIV SCREENING HIV SCREENING [facility] Start: 1992 SPIROMETRY SPIROMETRY [facility] Start: 1986 Depression Screening Depression Screening [facility] Start: 1974 COVID-19 VACCINE (#1) COVID-19 VACCINE (#1) [facility] Start: 1974 HEPATITIS B (1 of 3 - 3-dose series) HEPATITIS B (1 of 3 - 3-dose series) [facility] Start: 1974 HIV screening HIV Screening [facility] Start: 1974 Lipid panel Lipid Panel [facility] Start: 1974 Screening for malignant neoplasm of colon [facility] Start: 1974 Thyroid stimulating hormone measurement [facility] Immunizations Immunization Date Immunization Notes Care Provider Chichi sheriff 06-22-2022 influenza virus vacc ine, unspecified formulation [place] SENIOR DESIGNER/ART DIRECTOR.MACHINES TECHNICIAN Work Phone: [facility] 04-19-2018 influenza virus vacc ine, unspecified formulation SCARLETT SEFFENS SENIOR DESIGNER/ART DIRECTOR-MACHINES TECHNICIAN [facility] 04-19-2018 influenza, injectabl e, quadrivalent, preservative free [place] SENIOR DESIGNER/ART DIRECTOR.MACHINES TECHNICIAN Work Phone: [facility] 03-29-2018 tetanus toxoid, redu anthony diphtheria toxoid, and acellular pertussis vaccine, adsorbed [place] SENIOR DESIGNER/ART DIRECTOR.MACHINES TECHNICIAN Work Phone: [facility] 05-10-2017 influenza virus vacc ine, unspecified formulation SCARLETT SEFFENS SENIOR DESIGNER/ART DIRECTOR-MACHINES TECHNICIAN [facility] 05-10-2017 influenza, injectabl e, quadrivalent, preservative free [place] SENIOR DESIGNER/ART DIRECTOR.MACHINES TECHNICIAN Work Phone: [facility] 05-10-2017 pneumococcal polysaccharide vaccine, 23 valent [place] SENIOR DESIGNER/ART DIRECTOR.MACHINES TECHNICIAN Work Phone: [facility] 06-22-2015 tetanus toxoid, redu anthony diphtheria toxoid, and acellular pertussis vaccine, adsorbed Geraldine Suggs MA [facility] 09-04-2014 influenza virus vacc ine, unspecified formulation SCARLETT SEFFENS SENIOR DESIGNER/ART DIRECTOR-MACHINES TECHNICIAN [facility] 09-04-2014 influenza, seasonal, injectable Geraldine Suggs MA [facility] 09-04-2014 pneumococcal polysaccharide vaccine, 23 valent Geraldine Suggs MA [facility] 06-24-2013 influenza virus vacc ine, unspecified formulation Geraldine Suggs MA [facility] 04-12-1989 mumps virus vaccine Geraldine Suggs MA [facility] 04-12-1986 mumps virus vaccine Geraldine Suggs MA [facility] 11-25-1983 trivalent poliovirus vaccine, live, oral Geraldine Suggs MA [facility] 03-29-1976 diphtheria, tetanus toxoids and acellular pertussis vaccine Geraldine Suggs MA [facility] 03-29-1976 measles, mumps and rubella virus vaccine Geraldine Suggs MA [facility] 03-29-1976 trivalent poliovirus vaccine, live, oral Geraldine Suggs MA [facility] 1974 diphtheria, tetanus toxoids and acellular pertussis vaccine [facility] 1974 trivalent poliovirus vaccine, live, oral Geraldine Suggs MA [facility] 1974 diphtheria, tetanus toxoids and acellular pertussis vaccine Geraldine Suggs MA [facility] 1974 trivalent poliovirus vaccine, live, oral Geraldine Suggs MA [facility] 1974 diphtheria, tetanus toxoids and acellular pertussis vaccine [facility] 1974 trivalent poliovirus vaccine, live, oral Geraldine [facility] Payers Date Payer Category Payer Self-pay [id number] 2024 Unknown [id number] [facility] [id number] 2016 Medicaid [id number] 2016 Unknown [id number] 1974 Unknown [id number] 2.16.8 [id number] 1974 Unknown [id number] 2.16. [id number] 1974 Unknown [id number] 2.16. [id number] 1974 Unknown [id number] 2.16. [id number] 1974 Unknown [id number] 2.16. [id number] 1974 Unknown [id number] 2.16.8 [id number] Unknown Unknown [id number] 2.16.8 [id number] Unknown [id number] 2.16.8 [id number] Unknown [id number] 2.16.8 [id number] Unknown [id number] 2.16.8 [id number] Social History Date Type Detail Facility Start: 11-26-2021 End: 09-26-2022 Tobacco smoking status INIS Unknown if ever smoked [facility] Start: 07-11-[address] [facility] Start: 07-11-2017 Spouse/ Signif icant Other [facility] Start: 01-08-[address] [facility] Start: 1975 Sex Assigned At Female [facility] Start: 06-22-2022 End: 11-23-2023 Tobacco smoking status NHIS Smokes tobacco daily [facility] History of tobacco use Cigarette Smoker [facility] Start: 06-22-2022 End: 08-02-2022 Cigarettes smoked current (pack per day) - Reported 0.5 [facility] Start: 06-22-2022 Tobacco use and exposure Smokeless tobacco non-user [facility] Start: 06-22-2022 End: 01-10-2023 Alcohol intake Current non-drinker of alcohol (finding) [facility] Start: 06-22-2022 Tobacco Comment down to maybe 6 cigarettes through the day [facility] Start: 06-12-2022 End: 06-22-2022 Exposure to SARS-CoV-2 (event) Not sure [facility] Start: 01-10-2023 History SDOH Financial 4 [facility] Start: 08-02-2022 Alcoholic beverage intake Current drinker of alcohol (finding) [facility] Start: 08-02-2022 Tobacco use panel [facility] Start: 03-28-2024 Tobacco smoking status Heavy t obacco smoker (finding) [facility] Comment on above: Smoking since age 15 Start: 07-23-2024 Tobacco smoking status Light t obacco smoker (finding) [facility] Comment on above: Smoking since age 15 Sexual Orientation Nuzhat [employer] Start: 07-09-2019 Sex Female (finding) [facility] Medical Equipment Procedure Code Equipment Code Equipment Origin al Text Equipment Identifier Dates Spacer Avs 4d 7m m Spinal Bone Plug - [id number] Start: 07-18-2016 Plate Aviator Titanium 12x17.4x2.5mm Bone Level 1 Automatic Lock System - [id number] Start: 07-18-2016 Screw Aviator 4m m Titanium 16mm Bone Variable Angle Self Drill Nonsterile - [id number] Start: 07-18-2016 Tube 6mm Cuf Pro x Ext Trchsf - [id number] Start: 08-02-2013 Clinical Notes 05-10-2013 to 02-05-2025 Note Date & Type Note Facility 02-05-2025 Primary care Note Chief Complaint Hospital follow up, spinal stenosis, left foot pain, right leg pain History of Present Illness Mitchell was seen in her home today with her significant other present. Hospital follow-up, was admitted 01/02/2025 to [facility] through the [facility] ER and discharged home from Rehab at [facility] on 01/24/2025. Presented to the [...] to go: Yes. Financial concerns: No. 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 Lives In: Mobile home. Current Home [...] pain management, appointment with Dr. Acevedo at [place] on March 03. The patient could benefit [...] home health nurse there is a mobile manager new product in the area. Will see if can get her in with that person. 6. Impaired ambulation Acute on chronic: DME ordered Walker and BSC ordered. Will have nursing fax orders to [facility] in [place]. 7. UTI (urinary tract infection) Acute: continue [...] a day Duration: 10 Days Pickup at [facility] Unchanged acetaminophen (Tylenol) 650 Milligram by [...] prescriber if questions or concerns Pharmacy Information [facility]: [address], [place] [phone] What How Much When Comments Stop Taking bismuth subsalicylate (Pepto Bismol Liquicaps 262 mg oral capsule) 2 cap by mouth Every 30 minutes not to exceed 8 capsules/ day Stop Taking sulfamethoxazole-trimethoprim (Bactrim DS 800 mg-160 mg oral tablet) 1 tab(s) by mouth Every 12 hours Duration: 5 Days Digitally Signed by SCARLETT ROSENBERG on 02/05/2025 06:03 PM [facility] [place] 01-24-2025 Note Discharge Instructions Thank you for [...] From Your Doctor You were admitted to [facility] transitional care program after a stay at [facility] for ongoing rehab. You have progressed well [...] to the ED. Thank you for choosing [facility] transitional care program. We wish you well as you transition home today! Scheduled Follow-Up Appointments Appointment Type When With Where Contact Information StatusNS OV 02/17/2025 02:30 PM EDT LEEANN KING MD Neurosurgery [address] [phone] Confirmed GS OV Check Up 04/03/2025 02:00 PM EDT REUBEN LION JR, MD [facility] Confirmed Follow Up Appointments Follow Up with ANNETTE SAMANO APRN-QUETA When:Within 3-5 days Where:[address] [facility] [place] [phone] Additional Information: Please call to schedule your post-hospital follow-up appointment. Follow Up with LEEANN KING MD, Neurosurgery When:02/17/2025 02:30 PM EDT Where:[address] [place] [phone] Additional Information: This is your neurosurgery appointment. [...] spinal stenosis Duration: 7 Days Pickup at [facility] 01/23 @ 10 pm Unchanged acetaminophen [...] a day 01/24@ 9 am Pharmacy Information [facility]: [address], [place] [phone] Please take this list to your next [...] risk of getting burned. General instructions Take yomi-fnr-dexyzpy and prescription medicines only as told by [...] 10/20/2004 Document Revised: 07/13/2018 Document Reviewed: 07/05/2017 slinkset Patient Education 2020 [employer]. Weakness Weakness is a lack of strength. [...] about working with a physical therapist or review trainer to help you get stronger. General instructions Take prwx-xav-vcajred and prescription medicines only as told by [...] 07/13/2009 Document Revised: 03/06/2019 Document Reviewed: 03/06/2019 [employer]inkset Patient Education 2020 [employer]. Additional Information VACCINATE! IT SAVES LIVES! Members of the community who have not yet received the COVID-19 vaccine and would like to receive it can visit one of [facility] vaccine clinics. There are many vaccine clinic locations within the [facility]. For locations and available times, please visit [email or web address].[place] .[email or web address] It is important to note that some COVID mobile vaccine clinics are held outdoors and may be canceled in rainy or stormy conditions. To learn more about pediatric vaccinations (ages 5-11), we invite you to visit the [facility] webpage. [email or web address]/page [email or web address]-Uabdg-Zhucdvuhkmg-Frequently -[email or web address]-Questions.html To learn more about the COVID-19 vaccine, we invite you to visit the CDC website for a list of frequently asked questions.https://www.cdc.gov/coron avirus/2019-ncov/vaccines/faq.html [employer] Patient Portal Access Instructions: Stay connected with your healthcare team and access your personal medical information anytime with the [employer] Patient Portal. Please follow the directions below to create your [employer] account: 1.Access the email account you provided upon registration to the hospital/physician office.2.Look for an invitation email from [facility].3.Open the email and access the invitation link: [facility]itation to [facility].4.Fill in the required choudhury to create your account. To access your account, visit [email or web address]. Click the blue button labeled "Access Patient [...] you will allow to register on the [facility] [facility] Patient Portal for access to your information. You can also access the [facility] Patient Portal on the [facility] Anywhere kvng. Simply click on "Patient Portal" and then log into your account. If you would like to receive a full copy of your medical records, please contact the [facility] Medical Records Department by calling [phone], Monday through Monday between 8 a.m. and [...] Call your local pharmacy or go to [email or web address] to find one close to you.3.Make use of household items: Use cat litter or old coffee grounds to dispose medications if other options are not available. Mix your drugs with these household products, seal them in an airtight container and throw it into the garbage. Call [facility]: [phone] to be sure your drugs can be [...] Signatures Patient Education Materials Spinal Stenosis Weakness, Skwq-dk-Adlp Medication Leaflets My discharge plan and instructions have been reviewed and explained to me and I,MITCHELL BROOKS understand my current condition and have read and understand these discharge instructions. I have received a written copy of the plan/instructions. If I have questions, I am aware that I should contact my doctor. Patient/Radio Repairman Signature: ____ Date/Time: Relationship to Patient: __ Witness Name/Signature: Date/Time: [facility] 01-23-2025 Hospital Discharge instructions Patient Education 01/23/2025 [...] risk of getting burned. General instructions Take jfmf-zuz-hglwvuc and prescription medicines only as told by [...] 10/20/2004 Document Revised: 07/13/2018 Document Reviewed: 07/05/2017 [employer]et Patient Education 2020 [employer]. 01/23/2025 13:34:24 Weakness, Zxac-er-Mfjw Weakness Weakness is a lack of strength. [...] about working with a physical therapist or review trainer to help you get stronger. General instructions Take wkju-ahl-grbheul and prescription medicines only as told by [...] 07/13/2009 Document Revised: 03/06/2019 Document Reviewed: 03/06/2019 [employer]et Patient Education 2020 [employer] Follow Up Care 01/09/2025 09:52:50 With:ANNETTE SAMANO SENIOR DESIGNER/ART DIRECTOR-MACHINES TECHNICIAN Address: [address] [facility] [place] [phone] When:3-5 days Comments:Please call to schedule your post-hospital follow-up appointment. With:LEEANN KING MD, Neurosurgery Address: [address] [facility] [address] [place] [phone] When:02/17/2025 14:30:00 Comments:This is your neurosurgery appointment. Follow-up as scheduled. [facility] 01-21-2025 Note Date of Service 01/21/2025 Chief Complaint Ischemia Subjective 49-year-old female with past medical history significant for HTN, HLD, paroxysmal atrial fibrillation not anticoagulated, COPD, neuropathy, fibromyalgia, bipolar disorder, anxiety, GERD, pulmonary hypertension, IBS, hypothyroidism, morbid obesity, lumbar spinal stenosis, chronic pain following with pain management. Patient originally presented to [facility] 01/01/2025 with acute on chronic back pain that was limiting her mobility. CT lumbar spine at outside hospital done 12/25 that was limited due to body habitus however it did show narrowing of the canal and foramina in the lower lumbar region. MRI of the lumbar spine done at [facility] showing bilateral facet joint cyst L3-L4 resulting in severe canal stenosis. Patient was also noted to have a large midsternal hematoma extending out laterally to both breasts. She denied any trauma. Does take Plavix. CT of the chest with contrast showed large deep right breast/chest wall hematoma. Prominent adjacent induration could be inflammatory or represent contusion. Patient was transferred to [facility] with consults to neurosurgery, hematology, general surgery. She was a surgical candidate but opted for nonsurgical intervention. She underwent epidural injection on 01/07/2025. For chest hematoma she was evaluated by hematology and general surgery. Plan was for patient to follow-up with general surgery, Dr. Lion, in 2 weeks. She was evaluated by therapy with recommendation for inpatient rehab. She was subsequently admitted to [facility] TCU. Patient has been progressing [...] stenosis Patient underwent epidural injection 01/07/2025 at [facility]. She is due to follow-up with neurosurgery [...] may include grammatical and/or spelling errors. CPT 49704 Time Spent 28 minutes Digitally Signed by WEST SPENCER on 01/21/2025 02:13 PM [facility] 01-16-2025 Note Date of Service 01/16/2025 Chief Complaint Asthenia, lumbar spinal stenosis Subjective 49-year-old female with past medical history significant for HTN, HLD, paroxysmal atrial fibrillation not anticoagulated, COPD, neuropathy, fibromyalgia, bipolar disorder, anxiety, GERD, pulmonary hypertension, IBS, hypothyroidism, morbid obesity, lumbar spinal stenosis, chronic pain following with pain management. Patient originally presented to [facility] 01/01/2025 with acute on chronic back pain that was limiting her mobility. CT lumbar spine at outside hospital done 12/25 that was limited due to body habitus however it did show narrowing of the canal and foramina in the lower lumbar region. MRI of the lumbar spine done at [facility] showing bilateral facet joint cyst L3-L4 resulting in severe canal stenosis. Patient was also noted to have a large midsternal hematoma extending out laterally to both breasts. She denied any trauma. Does take Plavix. CT of the chest with contrast showed large deep right breast/chest wall hematoma. Prominent adjacent induration could be inflammatory or represent contusion. Patient was transferred to [facility] with consults to neurosurgery, hematology, general surgery. She was a surgical candidate but opted for nonsurgical intervention. She underwent epidural injection on 01/07/2025. For chest hematoma she was evaluated by hematology and general surgery. Plan was for patient to follow-up with general surgery, Dr. Lion, in 2 weeks. She was evaluated by therapy with recommendation for inpatient rehab. She was subsequently admitted to [facility] TCU. Patient has been progressing [...] stenosis Patient underwent epidural injection 01/07/2025 at [facility]. She is due to follow-up with neurosurgery [...] may include grammatical and/or spelling errors. CPT 63133 Time Spent 30 minutes Digitally Signed by WEST SPENCER on 01/16/2025 12:24 PM [facility] 01-16-2025 Note . MICRO - Microbiology PROCEDURE: [...] Locations *1: This test was performed at: [facility], [address] [place] [address], [id number] , [facility] 01-15-2025 Pastoral care Progress note Pastoral Care Note Entered On: 01/15/2025 8:59 EDT Performed On: 01/15/2025 8:55 EDT by Mauro Lara [facility] Type of Pastoral Visit : Follow up [...] is having her breakfast but welcomes this certified coding specialist to sit with her; pt talks about [...] by Mauro Lara on 01/15/2025 08:55 AM [facility] 01-12-2025 Note Date of Service 01/12/2025 Chief [...] up in bed. Patient advised to notify ACID DUMPER if they are warm to touch and [...] placed to PT and OT - following. dowel pin worker following for discharge planning. Insurance update due 01/20. 2. Bipolar disorder Chronic. Continue current home medications. Decreased Seroquel to 50 mg PO qhs due to patient request as she is groggy and not being able to make it to the [facility]. Ordered: 3. Chronic obstructive pulmonary disease (COPD) [...] case was discussed with collaborating physician, Dr. Jusitn Tijerina. Anticipated Date of Discharge unsure at this point - insurance update due 01/20 Time Spent 36 minutes spent reviewing past diagnostic tests, reviewing lab results, vital sign trends, medical history, reviewing medications and ordering home medications, examining patient, discussed plan of care with care team, collaborating with physician, and documenting in chart. CPT#18468 Digitally Signed by KEATON ETIENNE on 01/12/2025 09:44 AM [facility] 01-10-2025 Evaluation + Plan note Extrac grabiel from: Title:History and Physical Author:KEATON ETIENNE APRN-MACHINES TECHNICIAN Date:01/10/25 1. Asthenia Consult placed to PT and OT. dowel pin worker following for discharge planning. 2. Bipolar [...] with physician, and documenting in chart. CPT# 89321 Future Appointments Appointment Date:02/17/2025 02:30:00 PM Scheduled Provider:LEEANN KING MD Location:NEUROS Appointment Type:NS OV Appointment Date:04/03/2025 02:00:00 PM Scheduled Provider:REUBEN LION JR, MD Location:Gen Surg CAN Appointment Type: OV Check Up Future Scheduled Tests Laboratory* Thyroid Stimulating Hormone 06/23/24 * Complete Blood Count 06/23/24 * Lipid Profile 06/23/24 * Complete Metabolic Panel 06/23/24 [facility] 05-30-2025 Note Date of Service 01/10/2025 Chief Complaint weakness History of Present Illness Patient is a 49-year-old female, who follows with Annette Samano CNP with a past medical history significant for COPD, hypertension, dyslipidemia, atrial fibrillation, IBS, and morbid obesity, presented to [facility] swing program for ongoing rehab after a hospital stay at [facility]. Patient was initially admitted to [facility] on 01/01/2025 due to severe low back pain radiating down both legs. An MRI of the lumbar spine showed bilateral facet joint cyst L3-F4eryssibbh in severe canal stenosis. She was transferred to [facility] for neurosurgery evaluation. Neurosurgery evaluated patient and [...] Asthenia Consult placed to PT and OT. dowel pin worker following for discharge planning. 2. Bipolar [...] with physician, and documenting in chart. CPT# 27563 Problem List/Past Medical History Ongoing Angina at [...] Constant Order Digitally Signed by KEATON ETIENNE APRN-MACHINES TECHNICIAN on 01/10/2025 01:15 PM Digitally Signed by JUSTIN TIJERINA MD FACP on 01/14/2025 09:10 AM [facility]05-29-2025 NoteORIGINAL PROCEDURE: Lumbar Epidural Injection with Fluoroscopic Guidance CLINICAL STATEMENT: Low back pain HEAT AND [employer]ENT [employer] MECHANIC: Chapis Soto PA-C ANESTHESIA: Local NEEDLE: [...] Sign Date: 01/09/2025 6:22:05 PM Ordering Provider: [facility]05-29-2025 Hospital Discharge instructions Patient Education 01/09/2025 12:50:18 [...] risk of getting burned. General instructions Take vpry-ssi-rxsgrgn and prescription medicines only as told by [...] 10/20/2004 Document Revised: 07/13/2018 Document Reviewed: 07/05/2017 slinkset Patient Education 2020 [employer]. Follow Up Care 01/02/2025 15:32:45 With:LEEANN KING Neurosurgery Address: [address] [facility] [address] [place] [address]- [phone] Business (1) When: Unknown Comments:Call for appointment With:ANNETTE SAMANO Address: [address] [place] [address]- [phone] Business (1) When: only if needed With:[facility] Bed [phone] Address: When: Unknown Comments:Room 232 With:REUBEN LION JR, MD, Surgery Address: [address] [facility] [address] [place] [address] [phone] When:01/23/2025 13:15:00 Comments:For follow up of breast/chest hematoma [facility] 05-29-2025 Note Discharge Instructions Thank you for allowing [facility] to assist you with your healthcare needs. The following is importantdischarge information regarding your hospital visit. Your Care Team ANNETTE SAMANO SENIOR DESIGNER/ART DIRECTOR-MACHINES TECHNICIAN Your Diagnosis Allergic rhinitis Arthritis of both knees Back pain Bipolar disorder Breast mass Chronic obstructive pulmonary disease (COPD) Essential hypertension Fibromyalgia GERD (gastroesophageal reflux disease) History of atrial fibrillation Lumbar stenosis What to do next Scheduled Follow-Up Appointments Appointment Type When With Where Contact Information StatusGS Hospital Follow Up 01/23/2025 01:15 PM EDT REUBEN LION JR, MD [facility] Confirmed Follow Up Appointments Follow Up with Benjamin MORALES Where:[address] [facility] [address] [place] [address]- [phone] Business (1) Additional Information: Call for appointment Follow Up with ANNETTE SAMANO When:Only if needed Where:[address] [place] [address] [phone] Business (1) Follow Up with [facility] [phone] Additional Information: Room 232 Follow Up with REUBEN LION JR, MD, Surgery When:01/23/2025 01:15 PM EDT Where:[address] [facility] [address] [place] [address]- [phone] Additional Information: For follow up of breast/chest [...] risk of getting burned. General instructions Take znsz-def-tuotnor and prescription medicines only as told by [...] 10/20/2004 Document Revised: 07/13/2018 Document Reviewed: 07/05/2017 [employer]et Patient Education 2020 [employer] Additional Information VACCINATE! IT SAVES LIVES! Members of the community who have not yet received the COVID-19 vaccine and would like to receive it can visit one of [facility] vaccine clinics. There are many vaccine clinic locations within the [facility]. For locations and available times, please visit https://gettheshot.coronavirus.[place].gov/. It is important to note that some COVID mobile vaccine clinics are held outdoors and may be canceled in rainy or stormy conditions. To learn more about pediatric vaccinations (ages 5-11), we invite you to visit the [facility] webpage. https://www.[facility].org/pages/2350-Vqqif-Xddvmozncqp-Gauhvdhrih-Mtswu-Fxi stions.htmlTo learn more about the COVID-19 vaccine, we invite you to visit the CDC website for a list of frequently asked questions.https://www.cdc.gov/coronavirus/2019-ncov/vaccines/faq.html [facility] Patient Portal Access Instructions: Stay connected with your healthcare team and access your personal medical information anytime with the [facility] Patient Portal. Please follow the directions below to create your [facility] account: 1.Access the email account you provided upon registration to the hospital/physician office.2.Look for an invitation email from [facility].3.Open the email and access the invitation link: AcceptInvitation to [facility].4.Fill in the required choudhury to create your account. To access your account, visit [email or web address]. Click the blue button labeled "Access Patient Portal" and then log in with the username and password that you created in the steps above. You will be able to view your test results, lab results, a summary of your visits, upcoming appointments and more. There is also a convenient messaging option where you can send secure messages to your [employer]. In addition, you will have the ability to download any documents or summaries to your computer and/or send the information securely to a physician. Remember that your healthcare information is confidential, so carefully consider who you will allowto register on the [facility] Patient Portal for access to your information. You can also access the [facility] Patient Portal on the [facility] kvng. Simply click on "Patient Portal" and then log into your account. If you would like to receive a full copy of your medical records, please contact the [facility] Medical Records Department by calling [phone], Monday through Monday between 8 a.m. and [...] Call your local pharmacy or go to http://bit.BOOK A TIGER/8G0Uj0p to find one close to you.3.Make use of household items: Use cat litter or old coffee grounds to dispose medications if other options arenot available. Mix your drugs with these household products, seal them in an airtight container andthrow it into the garbage. Call [facility]: [phone] to be sure your drugs can be [...] aware that I should contact my doctor. Patient/Radio Repairman Signature: Date/Time: Relationship to Patient: Witness Name/Signature: Date/Time: [id number] Note Discharge Instructions Thank you for allowing [facility] to assist you with your healthcare needs. The following is importantdischarge information regarding your hospital visit. Your Care Team ANNETTE SAMANO SENIOR DESIGNER/ART DIRECTOR-MACHINES TECHNICIAN Your Diagnosis Allergic rhinitis Arthritis of both knees Back pain Bipolar disorder Breast mass Chronic obstructive pulmonary disease (COPD) Essential hypertension Fibromyalgia GERD (gastroesophageal reflux disease) History of atrial fibrillation Lumbar stenosis What to do next Scheduled Follow-Up Appointments Appointment Type When With Where Contact Information Status[facility] Hospital Follow Up 01/23/2025 01:15 PM EDT REUBEN LION JR, MD [facility] Surgery Confirmed Follow Up Appointments Follow Up with LEEANN KING, Neurosurgery Where:[address] [facility] [address] [facility] [place] [phone] Business (1) Additional Information: Call for appointment Follow Up with ANNETTE SAMANO When:Only if needed Where:[address] [facility] [place] [address] [phone] Business (1) Follow Up with [facility] Swing Bed [phone] Additional Information: Room 232 Follow Up with REUBEN LION JR, MD, Surgery When:01/23/2025 01:15 PM EDT Where:[address] [facility] [address] [place] [address]- [phone] Additional Information: For follow up of breast/chest [...] risk of getting burned. General instructions Take xatz-yhp-zdjkrab and prescription medicines only as told by [...] 10/20/2004 Document Revised: 07/13/2018 Document Reviewed: 07/05/2017 [employer]et Patient Education 2020 [employer]. Additional Information VACCINATE! IT SAVES LIVES! Members of the community who have not yet received the COVID-19 vaccine and would like to receive it can visit one of [facility] vaccine clinics. There are many vaccine clinic locations within the [facility]. For locations and available times, please visit https://gettheshot.coronavirus.[place].gov/. It is important to note that some COVID mobile vaccine clinics are held outdoors and may be canceled in rainy or stormy conditions. To learn more about pediatric vaccinations (ages 5-11), we invite you to visit the [facility] webpage. https://www.[facility].org/pages/5771-Totkl-Lkspqskadxn-Quyurdhwlv-Uebnw-Mze stions.htmlTo learn more about the COVID-19 vaccine, we invite you to visit the CDC website for a list of frequently asked questions.https://www.cdc.gov/coronavirus/2019-ncov/vaccines/faq.html [facility] Patient Portal Access Instructions: Stay connected with your healthcare team and access your personal medical information anytime with the [employer] Patient Portal. Please follow the directions below to create your [employer] account: 1.Access the email account you provided upon registration to the hospital/physician office.2.Look for an invitation email from [facility].3.Open the email and access the invitation link: AcceptInvitation to [facility].4.Fill in the required choudhury to create your account. To access your account, visit People [email or web address]. Click the blue button labeled "Access Patient [...] who you will allowto register on the [facility] Patient Portal for access to your information. You can also access the [facility] on the [facility] kvng. Simply click on "Patient Portal" and then log into your account. If you would like to receive a full copy of your medical records, please contact the [facility] Medical Records Department by calling [phone], Monday through Monday between 8 a.m. and [...] Call your local pharmacy or go to http://Insitu Mobile.BOOK A TIGER/9S5Hs0f to find one close to you.3.Make use of household items: Use cat litter or old coffee grounds to dispose medications if other options arenot available. Mix your drugs with these household products, seal them in an airtight container andthrow it into the garbage. Call [facility]: [phone] to be sure your drugs can be [...] aware that I should contact my doctor. Patient/Radio Repairman Signature: Date/Time: Relationship to Patient: Witness Name/Signature: Date/Time: [facility] [id number] Discharge summary Date of Service 01/09/2025 Discharge [...] tobacco abuse, morbid obesity. Patient presented to [facility] as a transfer from [facility] on 01/02/2025 for management of her severe lumbar stenosis. She initially presented to [facility] on 01/01/2025 with low back pain radiating down her legs. She underwent an MRI of the lumbar spine that showed bilateral facet joint cystL3-L4 resulting in severe canal stenosis. She transferred to [facility] for neurosurgery evaluation. Neurosurgery evaluated the patient [...] discussed with Dr. Tijerina. Collaborative Care Team [facility] Medicine Shared/split visit with Mar MARTINEZ. Patient seen and examined independently. Care discussed and coordinated by the entire care team under my direction. Patient doing well here today. Plan is therapy over at [facility], for which she is medically optimized. DC to [facility] TCU. DC time 36 minutes justin tijerina md [facility] Medicine Allergies Vicodin Zanaflex ciprofloxacin codeine [...] Patient Instructions He will be discharged to [facility] for continued physical and Occupational Therapy Return to the ER for any new or worsening symptoms Medications New Prescription acetaminophen-hydrocodone ([place] 325- 5 mg oral tablet)1 tab(s) by [...] Follow Up with LEEANN KING, Neurosurgery Where:[address] [facility] [address] [facility] [place] [address] [phone] Business (1) Additional Information: Call for appointment Follow Up with ANNETTE SAMANO When:Only if needed Where:[address] [facility] [place] [address] [phone] Business (1) Follow Up with [facility] Bed [phone] Additional Information: Room 232 Follow Up with REUBEN LION JR, MD, Surgery When:01/23/2025 01:15 PM EDT Where:[address] [facility] [address] [facility] [place] [address]- [phone] Additional Information: For follow up of breast/chest [...] TIJERINA MD FACP on 01/09/2025 06:52 PM [facility] [id number] Note* Exam Date Time Procedure Performing Provider Status 01/09/25 10:18 AM IR Epidural Injection WILLIAM HOBBS MD ; Auth (Verified) [id number] ORIGINAL PROCEDURE: Lumbar Epidural Injection with Fluoroscopic Guidance CLINICAL STATEMENT: Low back pain HEAT AND [employer]ENT [employer] MECHANIC: Chapis Soto PA-C ANESTHESIA: Local NEEDLE: [...] 01/09/2025 6:22:05 PM Ordering Provider: JUAN ENRIQUE [facility] [id number] Note IR Procedure Record Summary Primary Physician: CHAPIS SOTO PA-C Finalized Date/Time: 01/09/25 09:04:32 Pt. Name: MITCHELL BROOKS/Sex: 1975 Female Med Rec #: [id number] Physician: JAKE COPPOLA DO Financial #: [id number] Pt. Type: I Room/Bed: [facility]/A Admit/Disch: 01/02/25 23:07:00 - Institution: Allergies [...] Type Allergy Allergy Allergy Last Modified By: PARDEEP Longoria 09/08/17 [place] LPN, RN James M 20:13:00 03/28/24 14:14:48 04/24/17 23:32:07 Entry 7 Entry 8 Entry 9 Substance morphine naproxen penicillin Reaction Type Allergy Allergy Allergy Last Modified By: PRADEEP Griffith 11/16/16 [address] LPN, RN Karen 11/16/16 17:25:40 03/28/24 14:14:27 17:26:20 Case Attendance- IR Entry 1 Entry 2 Entry 3 Case Attendee CHAPIS SOTO Megan R Rad [facility] [employer] AgentGenie Conner PA-C Tech Role Performed Primary Surgeon [...] 1 mL Medication CONTRAST ISOVUE 300/30ML 10/[place] 763991 Radiology Flouroscopy Fluoroscopy Used? Yes Fluoro Dose [...] Charlie SALAS Megan R Relevant images and Sales And Support Center Agent, Noah, Rad results are properly Tech Tre Conner RN labeled and Matt appropriately displayed, Alcohol based prep dry, Double verification of sterility indicators complete Instrument Sterility Team Members CHAPIS SOTO Verifying Sterility AJCCharlie Megan R Sales And Support Center Agent Procedure IR Epidural Injection (SN) Last Modified By: PRADEEP [place] 01/09/25 08:40:04 Skin Prep- IR Entry 1 Procedure IR Epidural Injection (SN) Skin Prep Prep Area Back Side Bilateral, Lower By Cheyenne Guerra Rad Prep Agents Betadine Statistical Engineer Hair Removal Method N/A Last Modified By: [...] Radiology - Action Plan Outcomes Met? Yes Clinic Coordinator PRADEEP [place] Completing Procedure Plan Last Modified By: PRADEEP [place] 01/09/25 08:38:54 Case Comments Finalized By: PRADEEP [place] Document Signatures Signed By: PRADEEP [place] 01/09/25 09:04 [facility] [id number] Note Date of Service 01/08/25 Chief Complaint back pain Subjective 49-year-old female with past medical history of hypertension, hyperlipidemia, fibromyalgia, paroxysmal atrial fibrillation on Plavix as she is unable to tolerate aspirin or anticoagulation secondary to gastric ulcer, COPD, neuropathy, bipolar disorder, tobacco abuse, morbid obesity. Patient presented to [facility] as a transfer from [facility] on 01/02/2025 for management of her severe lumbar stenosis. She initially presented to [facility] on 01/01/2025 with low back pain radiating down her legs. She underwent an MRI of the lumbar spine that showed bilateral facet joint cystL3-L4 resulting in severe canal stenosis. She transferred to [facility] for neurosurgery evaluation. Neurosurgery evaluated the patient [...] PT/OT recommending inpatient rehab, pre-CERT pending for [facility] Level of Care Indication Regular Floor DVT Prophylaxis Enoxaparin SQ Maintenance IVF Indication NA / No maintenance IVF Indwelling Urinary Catheter Indication NA No indwelling catheter Anticipated Timeline of Discharge 24 hours Anticipated DC Disposition SNF Plan discussed with patient Case discussed with Dr. Coppola Digitally Signed by FAYE IRVING on 01/08/2025 12:41 PM [facility] [id number] Interventional radiology Progress note Due to IR schedule availability will reassess for injection 5-29-25. Floor made aware. Digitally Signed by Nabila More RN on 01/08/2025 03:46 PM [facility] [id number] Interventional radiology Progress note Due to IR schedule availability will reassess for injection 5-29-25. Floor made aware. Digitally Signed by Nabila More RN on 01/08/2025 03:46 PM [facility] [id number] Nurse Progress note this nurse reviewed and agrees with [facility] Student Nurse, Edilma Miller's charting and medication administration. Digitally Signed by Clarence Paniagua RN on 01/08/2025 03:01 PM [id number] Note Date of Service 01/08/25 Chief Complaint back pain Subjective 49-year-old female with past medical history of hypertension, hyperlipidemia, fibromyalgia, paroxysmal atrial fibrillation on Plavix as she is unable to tolerate aspirin or anticoagulation secondary to gastric ulcer, COPD, neuropathy, bipolar disorder, tobacco abuse, morbid obesity. Patient presented [facility] as a transfer from [facility] on 01/02/2025 for management of her severe lumbar stenosis. She initially presented to [facility] on 01/01/2025 with low back pain radiating down her legs. She underwent an MRI of the lumbar spine that showed bilateral facet joint cystL3-L4 resulting in severe canal stenosis. She transferred to [facility] for neurosurgery evaluation. Neurosurgery evaluated the patient [...] PT/OT recommending inpatient rehab, pre-CERT pending for [facility] Level of Care Indication Regular Floor DVT Prophylaxis Enoxaparin SQ Maintenance IVF Indication NA / No maintenance IVF Indwelling Urinary Catheter Indication NA No indwelling catheter Anticipated Timeline of Discharge 24 hours Anticipated DC Disposition SNF Plan discussed with patient Case discussed with Dr. Coppola Digitally Signed by FAYE IRVING on 01/08/2025 12:41 PM [facility] [id number] Nurse Progress note This nurse reviewed and agrees with [place] Student Nurse, Edilma Miller charting and medication administration. Digitally Signed by Clarence Paniagua RN on 01/08/2025 05:52 AM [facility] [id number] Interventional radiology Progress note Spoke with PRADEEP Castelan regarding order for Epidural. She was informed that IR is unable to do procedure today due to patient having lovenox yesterday. PRADEEP Castelan advised to get an order from ordering doctor to hold lovenox, and IR will plan procedure for tomorrow pending schedule availability. Digitally Signed by Sarah Huerta RN on 01/07/2025 02:09 PM [facility] [id number] Note Date of Service 01/07/25 Chief Complaint back pain Subjective 49-year-old female with past medical history of hypertension, hyperlipidemia, fibromyalgia, paroxysmal atrial fibrillation on Plavix as she is unable to tolerate aspirin or anticoagulation secondary to gastric ulcer, COPD, neuropathy, bipolar disorder, tobacco abuse, morbid obesity. Patient presented to [facility] as a transfer from [facility] on 01/02/2025 for management of her severe lumbar stenosis. She initially presented to [facility] on 01/01/2025 with low back pain radiating down her legs. She underwent an MRI of the lumbar spine that showed bilateral facet joint cystL3-L4 resulting in severe canal stenosis. She transferred to [facility] for neurosurgery evaluation. Neurosurgery evaluated the patient [...] PT/OT recommending inpatient rehab, pre-CERT pending for [facility] Level of Care Indication Regular Floor DVT Prophylaxis Enoxaparin SQ Maintenance IVF Indication NA / No maintenance IVF Indwelling Urinary Catheter Indication NA No indwelling catheter Anticipated Timeline of Discharge 24 hours Anticipated DC Disposition SNF Plan discussed with patient Case discussed with Dr. Coppola Digitally Signed by FAYE IRVING on 01/07/2025 11:49 AM [facility] [id number] Note Date of Service 01/06/25 Chief Complaint Acute on chronic back pain Subjective 49-year-old female with past medical history of hypertension, hyperlipidemia, fibromyalgia, paroxysmal atrial fibrillation on Plavix as she is unable to tolerate aspirin or anticoagulation secondary to gastric ulcer, COPD, neuropathy, bipolar disorder, tobacco abuse, morbid obesity. Patient presented to [facility] as a transfer from [facility] on 01/02/2025 for management of her severe lumbar stenosis. She initially presented to [facility] on 01/01/2025 with low back pain radiating down her legs. She underwent an MRI of the lumbar spine that showed bilateral facet joint cystL3-L4 resulting in severe canal stenosis. She transferred to [facility] for neurosurgery evaluation. Neurosurgery evaluated the patient [...] by FAYE IRVING on 01/06/2025 10:10 AM [facility] [id number] Note Date of Service 01/06/25 Chief Complaint Acute on chronic back pain Subjective 49-year-old female with past medical history of hypertension, hyperlipidemia, fibromyalgia, paroxysmal atrial fibrillation on Plavix as she is unable to tolerate aspirin or anticoagulation secondary to gastric ulcer, COPD, neuropathy, bipolar disorder, tobacco abuse, morbid obesity. Patient presented to [facility] as a transfer from [facility] on 01/02/2025 for management of her severe lumbar stenosis. She initially presented to [facility] on 01/01/2025 with low back pain radiating down her legs. She underwent an MRI of the lumbar spine that showed bilateral facet joint cystL3-L4 resulting in severe canal stenosis. She transferred to [facility] for neurosurgery evaluation. Neurosurgery evaluated the patient [...] by FAYE IRVING on 01/06/2025 10:10 AM [facility] [id number] Hematology Progress note Subjective Patient was feeling [...] -3230.00 Physical Exam In no apparent distress COLUMNIST/COMMENTATOR: She was awake and alert Skin: Ecchymosis [...] Patient denied any weakness No other bleeding [id number] Digitally Signed by JENNY LUZ MD on 01/06/2025 04:18 AM [facility] [id number] Hematology Progress note Subjective Blood seen under [...] -1640.00 Physical Exam In no apparent distress COLUMNIST/COMMENTATOR: She was awake and alert Respiratory: No [...] were answered. All the data was reviewed [id number] Digitally Signed by JENNY LUZ MD on 01/04/2025 11:45 PM [facility] [id number] Hematology Consult note Date of Service 01/03/2025 Reason for Consultation Nontraumatic ecchymosis History of Present Illness This is a 49-year-old female with a past medical history significant for hypertension paroxysmal atrial fibrillation, hyperlipidemia, COPD, and neuropathy. She presented to [facility] for management of severe lumbar stenosis. Due to the acute on chronic back pain the patient was sent to [facility] for evaluation from an orthospine and [...] hyperlipidemia, COPD, and neuropathy. She presented to [facility] for management of severe lumbar stenosis. Due to the acute on chronic back pain the patient was sent to [facility] for evaluation from an orthospine and [...] by SHEILA BLANCAS on 01/03/2025 10:16 AM [facility] [id number] Surgery Consult note Date of Service 01/03/2025 [...] anxiety, and fibromyalgia who presented to the [facility] emergency department on 01/01/2025 with complaints of low back pain with radiation of pain down her legs. She was evaluated in the [facility] emergency department on 12/25 and 12/28 due to ongoing pain and at that time she was diagnosed with a narrowing of the canal and foramina in the lower lumbar region. It was recommended that sheundergo an MRI for further evaluation. Due to progressively worsening symptoms that she presented to the [facility] emergency department on 01/01/2025. A CT scan of the thorax was obtained in the emergency department secondary to incidental findings of a large chest wall hematoma. She was noted to have a large deep right breast/chest wall hematoma with concern a large lobulated hypodense lesion in the region of the right deep breast per the report. She was admitted to [facility] for further evaluation. She underwent an MRI of the lumbar spine that showed bilateral facet joint cyst of L3-L4 resulting in severe canal stenosis per the report. She was transferred to [facility] for evaluation by orthospine/the neuro spine service. She was transferred to [facility] and was admitted to the regular floor [...] 49-year-old female, on Plavix, who presented to [facility] on 01/02/2025 forfurther workup of severe canal stenosis seen on MRI while she was admitted to the [facility] and for evaluation from the neurosurgical service. [...] by DESMOND GARCES on 01/03/2025 11:36 AM [facility] [id number] Surgery Consult note Date of Service 01/03/2025 [...] anxiety, and fibromyalgia who presented to the [facility] emergency department on 01/01/2025 with complaints of low back pain with radiation of pain down her legs. She was evaluated in the [facility] emergency department on 12/25 and 12/28 due to ongoing pain and at that time she was diagnosed with a narrowing of the canal and foramina in the lower lumbar region. It was recommended that sheundergo an MRI for further evaluation. Due to progressively worsening symptoms that she presented to the [facility] emergency department on 01/01/2025. A CT scan of the thorax was obtained in the emergency department secondary to incidental findings of a large chest wall hematoma. She was noted to have a large deep right breast/chest wall hematoma with concern a large lobulated hypodense lesion in the region of the right deep breast per the report. She was admitted to [facility] for further evaluation. She underwent an MRI of the lumbar spine that showed bilateral facet joint cyst of L3-L4 resulting in severe canal stenosis per the report. She was transferred to [facility] for evaluation by orthospine/the neuro spine service. She was transferred to [facility] and was admitted to the regular floor [...] 49-year-old female, on Plavix, who presented to [facility] on 01/02/2025 forfurther workup of severe canal stenosis seen on MRI while she was admitted to the [facility] and for evaluation from the neurosurgical service. [...] by DESMOND GARCES on 01/03/2025 11:36 AM [facility] [id number] Neurological surgery Consult note Date of Service 01/03/2025 Reason for Consultation Back and leg pain with lumbar stenosis Referring Physician Dr. Coppola History of Present Illness This is a 49-year-old female, with past medical history of hypertension, hyperlipidemia, paroxysmalA-fib, COPD, morbid obesity, and neuropathy, who presented to [facility] for complaints of severe lumbar pain. She initially was seen in the emergency department on 01/01 for acute on chronic back pain. She was sent to [facility], for evaluation by neurosurgery after she [...] pulses palpable. No edema noted Neurological: Skin: [place], warm, and dry. Psychiatric: Mood stable. Cooperative. [...] significant recently. - MRI was completed at [facility] and demonstrated an L3-L4 synovial cyst resulting in severe stenosis. Patient was transferred to [facility] for evaluation by neurosurgery. - At [...] be rediscussed with her. Please see Dr. Kign's addendum for further details recommendations. Problem List/Past [...] by JUAN ENRIQUE on 01/03/2025 09:59 AM [facility] [id number] Neurological surgery Consult note Date of Service 01/03/2025 Reason for Consultation Back and leg pain with lumbar stenosis Referring Physician Dr. Coppola History of Present Illness This is a 49-year-old female, with past medical history of hypertension, hyperlipidemia, paroxysmalA-fib, COPD, morbid obesity, and neuropathy, who presented to [facility] for complaints of severe lumbar pain. She initially was seen in the emergency department on 01/01 for acute on chronic back pain. She was sent to [facility], for evaluation by neurosurgery after she [...] pulses palpable. No edema noted Neurological: Skin: [place], warm, and dry. Psychiatric: Mood stable. Cooperative. [...] significant recently. - MRI was completed at [facility] and demonstrated an L3-L4 synovial cyst resulting in severe stenosis. Patient was transferred to [facility] for evaluation by neurosurgery. - At [...] by JUAN ENRIQUE on 01/03/2025 09:59 AM [facility] [id number] Neurological surgery Consult note Date of Service 01/03/2025 Reason for Consultation Back and leg pain with lumbar stenosis Referring Physician Dr. Coppola History of Present Illness This is a 49-year-old female, with past medical history of hypertension, hyperlipidemia, paroxysmalA-fib, COPD, morbid obesity, and neuropathy, who presented to [facility] for complaints of severe lumbar pain. She initially was seen in the emergency department on 01/01 for acute on chronic back pain. She was sent to [facility], for evaluation by neurosurgery after she [...] pulses palpable. No edema noted Neurological: Skin: [place], warm, and dry. Psychiatric: Mood stable. Cooperative. [...] significant recently. - MRI was completed at [facility] and demonstrated an L3-L4 synovial cyst resulting in severe stenosis. Patient was transferred to [facility] for evaluation by neurosurgery. - At [...] by JUAN ENRIQUE on 01/03/2025 09:59 AM [facility] [id number] Note Reason for Consultation Admission From: Other: [facility], from home Consult Skin Team re: Pressure [...] Erythema Gluteal cleft - Skin Abnormality Color: [place], Red Gluteal cleft - Skin Abnormality Type: [...] RN, Skin Team on 01/03/2025 09:06 AM [facility] [id number] Hematology Consult note Date of Service 01/03/2025 Reason for Consultation Nontraumatic ecchymosis History of Present Illness This is a 49-year-old female with a past medical history significant for hypertension paroxysmal atrial fibrillation, hyperlipidemia, COPD, and neuropathy. She presented to [facility] for management of severe lumbar stenosis. Due to the acute on chronic back pain the patient was sent to [facility] for evaluation from an orthospine and [...] hyperlipidemia, COPD, and neuropathy. She presented to [facility] for management of severe lumbar stenosis. Due to the acute on chronic back pain the patient was sent to [facility] for evaluation from an orthospine and [...] 11:43 EDT Digitally Signed by SHEILA BLANCAS APRN-MACHINES TECHNICIAN on 01/03/2025 10:16 AM [facility] [id number] History and physical note Date of Service January 02, 2025 Chief Complaint Back pain History of Present Illness This is a 49-year-old female with a past medical history significant for hypertension, hyperlipidemia, paroxysmal atrial fibrillation, morbid obesity, COPD, and neuropathy [facility]. 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., 03/28/2024 Nutrition/Health Caffeine intake amount: Coffee, [...] 12 hours Duration: 10 Days Pickup at [facility] New guaiFENesin (Mucinex 600 mg oral tablet, extended release) 1 tab(s) by mouth Every 12 hours Duration: 10 Days Pickup at [facility] Changed bacillus coagulans-calcium carbonate (Digestive Advantage Daily Probiotics oral capsule) 1 cap by mouth Once a day Duration: 30 Days Pickup at [facility] Unchanged albuterol (albuterol 5 mg/ [...] prescriber if questions or concerns Pharmacy Information [facility]: [address], [place] [phone] Digitally Signed by SCARLETT ROSENBERG on 04/24/2024 08:51 PM [facility]08-12-[facility]24 Telephone encounter Note* Telephone Encounter - Madyson Ramos - 03/25/2024 7:07 AM EDT Name of caller: Mitchell Brooks Contact phone number: [phone] Relationship to Patient: patient Provider: [facility] Practice: Gastroenterology Chief Complaint/Reason for Call: Pt [...] business hours to return their call: Yes [facility] HospitalVibnmc86-82-5754 Miscellaneous Notes* Telephone Encounter - Madyson Ramos - 03/25/2024 7:07 AM EDT Name of caller: Mitchelllance Brooks Contact phone number: [phone] Relationship to Patient: patient Provider: Joyce Forester [...] return their call: Yes documented in this [facility]06-15-2023 Miscellaneous Notes* Telephone Encounter - Criss Landers - 01/26/2023 3:14 PM EDT This patient was seen by Myke Ross in the ED around . Patient lives out in [place] wanting a referral placed [facility] F[facility]# [phone] Please call her if there is any other questions Thanks! [facility] NoteHNO ID: [id number] Author: Melodie Smith APRN.MACHINES TECHNICIAN Service: Cardiovascular Medicine Author Type: Nurse Practitioner Type: Plan of Care Filed: 01/14/2023 10:23 AM Note Text: [facility] BRIEF PLAN OF CARE CONSULTING SERVICE: Cardiology: Consult Team PRIMARY SERVICE: Internal Medicine HOSPITAL DAY: #4 REASON FOR CONSULT: Atrial fibrillation SUBJECTIVE HPI: Ms. Brooks is a 47 year old female from [place], [place] with h/o morbid obesity, necrotizing fascitis [...] as needed. Heart rate leniently controlled. - [id number] VASc score is 2. Recommend to start [...] -She wishes to establish care with a administrative sales assistant in the [place] area>>recommend follow up in 3-4 weeks -No [...] 14, 2023 TIME: 10:18 AM PAGER/CONTACT #: [phone] For communication after 5 pm on weekdays and on weekends, please page the (more content not included)...[id number] NoteHNO ID: [id number] Author: Cindy Hameed RN Service: Care Management [...] accepting home care agencies. Call placed to [facility] to inquire about who her shoe caser is. Patient does not have a shoe caser. 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 SIGNATURE: Cindy Hameed RN PATIENT NAME: Mitchell Brooks DATE: January 13, 2023 TIME: 3:05 PM PAGER/CONTACT #: [phone] [id number] NoteHNO ID: [id number] Author: Chrissy Novoa MD Service: Hospital Medicine Author Type: Physician Type: Progress Notes Filed: 01/13/2023 1:21 PM Note Text: DEPARTMENT OF HOSPITAL MEDICINE PROGRESS NOTE SERVICE DATE: 01/13/2023 SERVICE TIME: 1:15 PM Hospital Medicine/Primary Attending: Chrissy Novoa MD NIGHT AND WEEKEND COVERAGE: [employer] COVERAGE: : [phone], please contact via [employer] Nights: [phone] - 3rd floor: please page CC Hospitalist night cover [phone] - 4th floor: please page CC Hospitalist night cover [phone] - 5th floor: please page CC Hospitalist night cover [phone] Subjective INTERVAL HPI: Patient seen and examined. [...] asthma, copd, lymphedema, hypothyroidism, who presented to [place] ED Monday with chills and weakness, then admitted here for continued care. Principal Problem: Sepsis (HCC) Cellulitis of left lower extremity Assessment AND Plan: symptom onset Monday afternoon, chills, rigors, fever. WBC 28. Initial lactate 2.3, improved to 1.4 after fluids. CXR nothing acute. Started on Zosyn at [place] ED. No definite (more content not included)...[facility] HospitalGdtoukex59-59-5515 NoteHNO ID: [id number] Author: Myke Ross MD Service: Infectious Disease [...] 0659 01/12/23 0700 - 01/13/23 0659 Shift 2040-1936 1942-8937 24 Hour Total 2467-8132 4012-7300 4943-9466 24 Hour Total INTAKE PO 540 1140 307 494 5920 PO 540 1140 735 519 8036 Shift Total 540 1140 065 115 2304 OUTPUT Urine 400 400 800 300 100 [...] Myke Ross MD, PhD Staff, Infectious Disease [facility] Office [phone] Please call anytime with questions or concerns. Case findings/test results and suggestions disc (more content not included)... [facility] [id number] NoteHNO ID: [id number] Author: Chrissy Novoa MD Service: Hospital Medicine Author Type: Physician Type: Progress Notes Filed: 01/12/2023 12:24 PM Note Text: DEPARTMENT OF HOSPITAL MEDICINE PROGRESS NOTE SERVICE DATE: 01/12/2023 SERVICE TIME: 12:19 PM Hospital Medicine/Primary Attending: Chrissy Novoa MD NIGHT AND WEEKEND COVERAGE: TANANA COVERAGE: Days: [phone], please contact via [employer] Nights: - 3rd floor: please page CC Hospitalist night cover [phone] - 4th floor: please page CC Hospitalist night cover [phone] - 5th floor: please page CC Hospitalist night cover [phone] Subjective INTERVAL HPI: Patient seen and examined. [...] asthma, copd, lymphedema, hypothyroidism, who presented to [place] ED Monday with chills and weakness, then admitted here for continued care. Principal Problem: Sepsis (HCC) Cellulitis of left lower extremity Assessment AND Plan: symptom onset Monday afternoon, chills, rigors, fever. WBC 28. Initial lactate 2.3, improved to 1.4 after fluids. CXR nothing acute. Started on Zosyn at [place] ED. No definite source other than the possible cellulitis LLE. Vancomycin added on 01/10/2023. - Sepsis carepath - No more fever overnight, Tmax last 24 hours 37.2 ?C - Leukocytosis improved from 29.12 to 13.19 to 8.6 - ID switched antibiotics to (more content not included)...[facility] 01-12-2023 NoteHNO ID: [id number] Author: Mitchell Alfredo RN Service: Care Management Author Type: Registered Nurse Type: Care Mgt Progress Note Filed: 01/12/2023 1:30 PM Note Text: CARE MANAGEMENT PROGRESS NOTE SERVICE DATE: 01/12/2023 SERVICE TIME: 11:46 AM LOS: 2 days [place] of Choice Given: Yes Level of Care [...] Discussed the barrier of her [place] plan[place] [facility] [facility] [employer] [place]. Will send referrals and attempt to arrange this service. If unable, patient may be interested in attending outpatient PT. She has done this in the past. 1329: Unable to secure Home PT for patient d/t insurance coverage. SIGNATURE: Mitchell Alfredo RN PATIENT NAME: Mitchell Brooks DATE: January 12, 2023 TIME: 11:46 AM PAGER/CONTACT #: [phone] [id number] NoteHNO ID: [id number] Author: Chrissy Novoa MD Service: Hospital Medicine Author Type: Physician Type: Progress Notes Filed: 01/11/2023 10:34 AM Note Text: DEPARTMENT OF HOSPITAL MEDICINE PROGRESS NOTE SERVICE DATE: 01/11/2023 SERVICE TIME: 10:28 AM Hospital Medicine/Primary Attending: Chrissy Novoa MD NIGHT AND WEEKEND COVERAGE: [place] COVERAGE: Days: [phone], please contact via [employer] Nights: [phone] - 3rd floor: please page CC Hospitalist night cover [phone] - 4th floor: please page CC Hospitalist night cover [phone] - 5th floor: please page CC Hospitalist night cover [id number] Subjective INTERVAL HPI: Patient seen and examined. [...] asthma, copd, lymphedema, hypothyroidism, who presented to [place] ED Monday with chills and weakness, then admitted here for continued care. Principal Problem: Sepsis (HCC) Cellulitis of left lower extremity Assessment AND Plan: symptom onset Monday afternoon, chills, rigors, fever. WBC 28. Initial lactate 2.3, improved to 1.4 after fluids. CXR nothing acute. Started on Zosyn at [place] ED. No definite source other than the possible cellulitis LLE. Vancomycin added on 01/10/2023. - Sepsis carepath - No more fever overnight, Tmax last 24 hours 37.7 ?C -Leukocytosis improved from 29.12 to 13.19 - continue zosyn a (more content not included)...[id number] NoteHNO ID: [id number] Author: Myke Ross MD Service: Infectious Disease [...] 0659 01/11/23 0700 - 01/12/23 0659 Shift 2679-2268 7456-8354 5995-5277 24 Hour Total 4776-9656 1015-5279 5986-1291 24 Hour Total INTAKE PO 250 120 370 PO 250 120 370 IV 550 1095 1026 2671 Volume (mL) (piperacillin-tazobactam iv piggyback 3.375 g in dextrose (iso-osmotic) 50 mL (ZOSYN)) 100 100 50 250 Volume (mL) (vancomycin 1.5 g in NaCl 0.9% 250 mL (VANCOCIN)) 250 250 500 Volume (mL) (NaCl 0.9% iv infusion) 200 654 851 5207 Shift Total 800 1215 1026 3041 OUTPUT Urine 8520 017 0082 Urine Incontinence/Not Saved 1 x 1 x 2 x Output ( External Collection Device 01/10/23 0243) 8098 173 5528 # of BMs Stool Incontinence 1 x 1 x Number of BMs 2 x 2 x Shift Total 4312 093 5230 Weight (kg) 159.9 159.9 159.9 159.9 159.9 [...] Myke Ross MD, PhD Staff, Infectious Disease [place] (more content not included)...[id number] NoteHNO ID: [id number] Author: RT Patti(R) Service: Radiology Author Type: [...] BY: RT Patti(R) January 10, 2023 11:28 [id number] NoteHNO ID: [id number] Author: Chrissy Novoa MD Service: Hospital Medicine [...] Brooks DATE: January 10, 2023 TIME: 11:25 [facility] [id number] NoteHNO ID: [id number] Author: Cindy Hameed RN Service: Care Management Author Type: Registered Nurse Type: Care Mgt Initial Assessment Filed: 01/10/2023 10:31 AM Note Text: CARE MANAGEMENT: ASSESSMENT AND DISCHARGE PLAN SERVICE DATE: January 10, 2023 SERVICE TIME: 10:29 AM PCP: No primary care provider on file. Primary Contact: Extended Emergency Contact Information Primary Emergency Contact: Kalani Zhang Address: [address] [place] [id number] [place] [address] Relation: Daughter Secondary Emergency Contact: Rahul Ly Address: [address] [place] [id number] [place] [address] Mobile Relation: Ex Spouse Admission Status: Inpatient Insurance Provider: [facility] MEDICA[facility] Discharge Planning requested by: Per Department Practice Potential Transition Plans Home Advance Directives Current Advance Directive: Health Care Power of Story Writer In Chart: Yes Up To Date and Valid: No Sports Centre Manager Attempted to Assist with AD Completion: Yes [...] Patient Goal(s): Be able to go home [place] of Choice Explained: [place] of Choice Given: No Reason Not Given: [...] 10, 2023 TIME: 10:29 AM CONTACT #: [id number] Miscellaneous Notes* Telephone Encounter - Aman Pena LPN - 07/25/2022 9:08 AM EST Pt has appt to Establish Care with Dr. Deepti Ruiz on 08/01/22. Dr. Lim has not been listed as this pt's PCP since 2012 and has not been seen by anyone in this practice since 2015. Aman Pena LPN [facility] History of Present illness Narrative* Geraldine Suggs MA - 06/24/2022 12:37 PM EST ED Follow Up: Patient discharged from [facility] ED on 06/22/2022. 1. How are you [...] you able to contact the office or section laborer provider prior to your ED visit? Not applicable 5. Is there anything else I can do for you today? No Patient was transferred to call center to schedule apt. Geraldine Suggs MA desk editor rang busy [facility] History of Past illness Narrative* Problem Noted [...] of this encounter (statuses as of 01/27/2023) [facility] of Past illness Narrative* Problem Noted Date Resolved Date Myofascial pain 05/10/2013 07/20/2013 documented as of this encounter (statuses as of 06/24/2022) [facility] History of Past illness Narrative* Problem Noted Date Resolved Date Myofascial pain 05/10/2013 07/20/2013 documented as of this encounter (statuses as of 07/25/2022) [facility] History of Past illness Narrative* Problem Noted Date Resolved Date Myofascial pain 05/10/2013 07/20/2013 documented as of this encounter (statuses as of 07/25/2022) [facility] Future Scheduled Tests Laboratory* Thyroid Stimulating Hormone 06/23/24 * Complete Blood Count 06/23/24 * Lipid Profile 06/23/24 * Complete Metabolic Panel 06/23/24 [facility] note Future Appointments Appointment Date:02/17/2025 02:30:00 PM Scheduled Provider:LEEANN KING MD Location:[facility] Appointment Type:NS OV Appointment Date:04/03/2025 02:00:00 PM Scheduled Provider:REUBEN LION JR, MD Location:[facility] Appointment Type:GS OV Check Up Future Scheduled Tests Laboratory* Thyroid Stimulating Hormone 06/23/24 * Complete Blood Count 06/23/24 * Lipid Profile 06/23/24 * Complete Metabolic Panel 06/23/24 [facility] Evaluation + Plan note Future Appointments Appointment Date:02/17/2025 02:30:00 PM Scheduled Provider:LEEANN KING MD Location:[facility] Appointment Type:NS OV Appointment Date:02/18/2025 02:00:00 PM Scheduled Provider:ANNETTE SAMANO Location:[facility] Appointment Type:PC OV Appointment Date:03/03/2025 12:45:00 PM Scheduled Provider:LILLIAM TURNER APRN-MACHINES TECHNICIAN Location:[facility] Appointment Type:PM OV Appointment Date:04/03/2025 02:00:00 PM Scheduled Provider:REUBEN LION JR, MD Location:[facility] Appointment Type:GS OV Check Up Future Scheduled Tests Laboratory* Thyroid Stimulating Hormone 06/23/24 * Complete Blood Count 06/23/24 * Lipid Profile 06/23/24 * Complete Metabolic Panel 06/23/24 [facility] at[facility] note* Diagnosis Onset Date Resolution Status Irritable bowel syndrome with diarrhea [facility] Work Phone: Evaluation note* Diagnosis Acquired hypothyroidism Unspecified hypothyroidism documented in this encounter [facility] [place] [facility]* Diagnosis Onset Date Resolution Status GERD (gastroesophageal reflux disease) chronic Irritable bowel syndrome with diarrhea [facility] Work Phone: Evaluation noteNo assessment information available [facility] Work Phone: Hospital course Narrative No data available for this section [facility] Discharge instructions No data available for this section [facility] note No data available for this section [facility] Reason for referral (narrative)No reason for referral information availableWWayne [facility] Work Phone: Summary Purpose Family History No Family History Records Found Relationship Condition Age at Onset Recorded Date/T carlos Unknown Family History?Diabetes Unknown Apr 2:43pm Family History?Diabetes Unknown [facility] 2016 12:06am Family History?No pe rtinent history [...] No May 06, 2021 12:19pm Power of Story Writer No April 12:19pm Documents on File Type Date Recorded 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 anation Advance Directive(s) 07/18/2016 10:03 AM [...] section and content) DATE CREATED AUTHOR 07/27/2018 [facility] DATE CREATED AUTHOR AUTHOR'S ORGANIZ ATION 05/03/2019 [facility] ([place]) DATE CREATED AUTHOR AUTHOR'S ORGANIZ ATION 08/19/2020 [facility] DATE CREATED AUTHOR AUTHOR'S ORGANIZ ATION 01/24/2023 [facility] DATE CREATED AUTHOR AUTHOR'S ORGANIZ ATION 01/27/2023 [facility] DATE CREATED AUTHOR AUTHOR'S ORGANIZ ATION 02/14/2023 [facility] DATE CREATED AUTHOR AUTHOR'S ORGANIZ ATION 02/16/2023 [facility] DATE CREATED AUTHOR AUTHOR'S ORGANIZ ATION 2024 [facility] DATE CREATED AUTHOR AUTHOR'S ORGANIZ ATION 12/30/2024 [facility] DATE CREATED AUTHOR AUTHOR'S ORGANIZ ATION 02/02/2025 [facility] DATE CREATED AUTHOR AUTHOR'S ORGANIZ ATION 02/04/2025 [facility] DATE CREATED AUTHOR AUTHOR'S ORGANIZ ATION 03/19/2025 [facility] Goals (unrecognized section and content) Goals may [...] or prosecute any alcohol or drug abuse patient.[facility] HospitalIn the event this information is protected by the Federal Confidentiality of Alcohol and Drug Abuse Patient Records regulations: The Federal rules restrict any use of the information to criminally investigate or prosecute any alcohol or drug abuse patient.[facility] HospitalIn the event this information is protected by the Federal Confidentiality of Alcohol and Drug Abuse Patient Records regulations: The Federal rules restrict any use of the information to criminally investigate or prosecute any alcohol or drug abuse patient.[facility] HospitalIn the event this information is protected by the Federal Confidentiality of Alcohol and Drug Abuse Patient Records regulations: The Federal rules restrict any use of the information to criminally investigate or prosecute any alcohol or drug abuse patient.[facility] HospitalIn the event this information is protected by the Federal Confidentiality of Alcohol and Drug Abuse Patient Records regulations: The Federal rules restrict any use of the information to criminally investigate or prosecute any alcohol or drug abuse patient.[facility] Reason for Visit (unrecogniz ed section and [...] Provider, Referrin g Provider Active Cat Dent ACID DUMPER, ACID DUMPER-C Attending Provider Active Team Status: Inactive Member Role Status Dates Dr. Nabila Watson MD Primary Care Prov ider, Attending Provider, Referring Provider Active Clinic Coordinator Relationship Specialty Start Date End Date Nabila Watson MD [address] [place] [address] PCP - General Family Medicine 01/11/23 Clinic Coordinator Relationship Specialty Start Date End Date Geovanny Nesbitt DO [address] [place] [address] PCP - General 09/04/18 Team Status: Active Member Role Status Dates Dr. Geovanny Nesbitt DO Family Provider Active Annette Samano ACID DUMPER, ACID DUMPER-C Primary Care Provider Active Team Status: Inactive Member Role Status Dates Annette Samano ACID DUMPER, ACID DUMPER-C Primary Care Provider Active Start: January 29, 2025 End: January 29, 2025 Annette Samano ACID DUMPER, ACID DUMPER-C Attending Provider Active Start: January 29, 2025 End: January 29, 2025 Team Status: Active Member Role/Relationship Status Dates Annette Samano ACID DUMPER, ACID DUMPER-C Primary Care Provider Active Team Status: Inactive Member Role/Relationship Status Dates Annette Samano ACID DUMPER, ACID DUMPER-C Primary Care Provider Active Start: January 29, 2025 End: January 29, 2025 Annette Samano ACID DUMPER, ACID DUMPER-C Attending Provider Active Start: January 29, 2025 [...] BE BASED ON THE PRIMARY CLINICAL RECORDS. [facility], [facility]. provides no warranty or guarantee of the accuracy or completeness of information in this document.
--- OUTSIDE RECORDS SUMMARY | 2025-06-01 20:22 | XMS RPT_ITS | CCD ---
Author Organization [facility] Care Team Providers Care Chick Grader Name Role Phone OlivierLois Unavailable Unavailable PROVIDER, UNKNOWN Unavailable Unavailable Geovanny Nesbitt Unavailable Unavailable Dr. Nabila Watson Primary Care Provider Dr. Nabila Watson Referring Provider Friend, Dr. Martinez Attending Provider [phone] Unavailable Primary Care Provider Unavailcolton rivera Unavailable Primary Care Provider UnavailDr. Nabila Pennington Primary Care Provider [phone] Dr. Nabila Watson Referring Provider [phone] Filipe CONTRERAS, STRUCTURER-C Cat Wahl Attending Provider [phone] ROMÁN CHANDLER Referring Unavailable RYAN CHAVARRIAIDANA Attending [...] DR REUBEN BHAKTA Attending Unav ailable SAMANO TECHNICAL OPERATOR-[facility], [facility] Unavai labann COPPOLA DO, DR JOSEPH Attending Unavailable SAMANO TECHNICAL OPERATOR-ROTARY ENGINE ASSEMBLER, [facility] Unavai labann YAP DO, FEMI M Consulting Unavailabl e KAPPER TECHNICAL OPERATOR-ROTARY ENGINE ASSEMBLER, KEATON M Admitting Unavaila ble KAPPER TECHNICAL OPERATOR-ROTARY ENGINE ASSEMBLER, KEATON M Admitting Unavaila ble ANGIE BULLARD, VALERIE Attending Unavailable ANGIE BULLARD, VALERIE Consulting Unavailable [facility], [facility] Care Alyssa Samano STRUCTURER-C, [facility] Primary Care Provider Selwyn STRUCTURER-C, Annette Attending Provider ElierYung garrett Attending Unavailable Nabila Watson Referring Unavailable Nabila Watson Primary Care Unavailable Selwyn STRUCTURER, [facility] Primary Care Unavailable Aileen Campos Attending Unavail able Selwyn STRUCTURER, Annette Referring Unavailable ElierYung garrett Referring Unavailable ElierYung garrett Attending Unavailable Selwyn STRUCTURER, [facility] Unavailable Selwyn STRUCTURER, Annette Attending Unavailable Selwyn STRUCTURER, [facility] Unavailable Allergies Allergy Classification Reported Allergen(s) Allergy Type Date of Onset Reaction(s) Facility (2 sources) Aspirin Drug Allergy 05-25-20 21 Itching [facility] (5 sources) Ciprofloxacin; Translations: [ciprofloxacin HCl] Drug Allergy 05-25-20 21 Shortness of breath [facility] (16 sources) Codeine; Translations: [CODEINE] Drug Allergy 01-18-20 13 Itching [facility] (4 sources) HYDROcodone Drug Allergy 05-25-20 21 Shortness of breath [facility] (16 sources) Ibuprofen; Translations: [IBUPROFEN] Drug Allergy 01-18-20 13 Rash [facility] (16 sources) Morphine; Translations: [MORPHINE] Drug Allergy 01-18-20 13 Anaphylaxis [facility] (5 sources) Penicillins; Translations: [Penicillins] Propensity to adverse reactions 05-25-20 21 Itching [facility] (12 sources) tiZANidine; Translations: [TIZANIDINE HCL] Drug Allergy 06-22-20 15 Rash [facility] (12 sources) Acetaminophen / HYDROcodone; Translations: [HYDROCODONE-ACETA MINOPHEN] Drug Allergy 01-18-20 13 Anaphylaxis [facility] Work Phone: (12 sources) Ciprofloxacin; Translations: [CIPROFLOXACIN] Drug Allergy 01-18-20 13 Hives, Redness of skin of face [facility] (7 sources) Naproxen; Translations: [NAPROXEN SODIUM] Drug Allergy 05-13-20 15 Itching [facility] (3 sources) Lactose; Translations: [LACTOSE] Drug Allergy 01-13-20 23 Diarrhea [facility] Other [place] [facility] (3 sources) Acetaminophen; Translations: [acetaminophen] Drug Allergy 05-16-20 24 Anaphylaxis (disorder) [facility] (3 sources) celecoxib; Translations: [celecoxib] Drug Allergy 05-16-20 24 Swelling (morphologic abnormality) [facility] (7 sources) Cyproheptadine; Translations: [cyproheptadine] Drug Allergy 05-16-20 24 Weal (disorder) [facility] (7 sources) Naproxen; Translations: [naproxen] Drug Allergy 05-16-20 24 Itching (finding) [facility] (4 sources) Penicillin; Translations: [penicillins] Drug Allergy itching [facility] (7 sources) tiZANidine; Translations: [tizanidine] Drug Allergy 05-16-20 24 itching, redness of skin, Rash [facility] (1 source) Penicillin; Translations: [penicillins] Drug Allergy itching [facility] (1 source) Acetaminophen Drug Allergy 05-16-20 [facility] Repository (1 source) celecoxib Drug Allergy 05-16-20 [facility] Repository (1 source) Codeine Drug Allergy 05-16-20 24 [facility] Repository (1 source) Cyproheptadine Drug Allergy 05-16-20 [facility] Repository (1 source) HYDROcodone Drug Allergy 05-16-20 [facility] Repository (1 source) Ibuprofen Drug Allergy 05-16-20 [facility] Repository (1 source) Morphine Drug Allergy 05-16-20 [facility] (1 source) Naproxen Drug Allergy 05-16-20 [facility] Rep[facility] (1 source) tiZANidine Drug Allergy 05-16-20 [facility] Repository Medications Current Medications Medication Drug Class(es) [...] day(s), # 28 tab(s), 0 Refill(s), Pharmacy: [facility], Lumbar spinal stenosis, 157.5, cm, 01/23/25 [...] wheezing, # 18 gram(s), 1 Refill(s), Pharmacy: [facility], Acute bronchitis Chronic obstructive pulmonary disease [...] 0 Refill(s), 05/04/24 8:46:00 PM EDT, Pharmacy: [facility], 157, cm, 03/28/24 13:53:00 EDT, Height, 154.9, kg, 03/28/24 13:53:00 EDT, Dosing Weight Start Date: 04/24/24 Stop Date: 05/04/24 Status: Ordered cephalexin 500 mg oral capsule (1 source) Cephalosporin Antibacterial Start: 02-05-2025 End: 02-15-2025 cephalexin 500 mg oral capsule Dose : 500 mg = 1 cap(s), Oral, QID, X 10 day(s), # 40 cap(s), 0 Refill(s), 02/15/25 5:01:00 PM EDT, Pharmacy: [facility], 157.5, cm, 01/23/25 13:05:00 EDT, Height, [...] qDay, # 90 tab(s), 0 Refill(s), Pharmacy: [facility], 157, cm, 03/28/24 13:53:00 EDT, Height, kg, 03/28/24 13:53:00 EDT, Dosing Weight Start Date: 04/19/24 Status: Ordered Start: 04-26-2023 take 1 capsule by [facility] once daily as needed Cetirizine (All [...] Pain, # 200 gram(s), 5 Refill(s), Pharmacy: [facility], Gel, 157, cm, 10/18/24 9:46:00 EST, [...] QID, # 360 cap(s), 0 Refill(s), Pharmacy: [facility], 157, cm, 11/15/24 10:32:00 EDT, Height, [...] qDay, # 30 cap(s), 1 Refill(s), Pharmacy: [facility], 157, cm, 03/28/24 13:53:00 EDT, Height, [...] BID, # 12 gram(s), 6 Refill(s), Pharmacy: [facility], Chronic obstructive pulmonary disease (COPD), 157.5, [...] 3:56pm Start: 10-27-2015 take 1 capsule by [facility] once daily at bedtime gabapentin (NEURONTIN) [...] Comment on above: Take 1 capsule by [facility] daily at bedtime. Jcxsxzfx-Ijndc-Mlg 2-C-D3-Kathrin (Xofqnwed-Jpfyzv-Y sm With Vit D) 750-30-1,000-1 kq-ga-dfhi-mg Tablet (4 sources) Start: 05-06-2021 take 1 tablet by mouth once daily Fgeqerie-Uzgbw-Cjp 2-C-D3-Kathrin (Pyjlorid-Sijdtm-Oku With Vit D) 750-30-1,000-1 rg-ki-vfza-mg Tablet Active 1 TABLET PO DAILY May 06, 2021 11:49am Start: 05-06-2021 Glucosam-Chond -Msm 2-C-D3-Kathrin (Mxtqzesz-Kkzbsv-Oqs With Vit D) 750-30-1,000-1 av-le-fzeu-mg Tablet Active 1 {tbl} PO DAILY May 06, 2021 12:00am Start: 05-06-2021 take 1 tablet by ashlyn th once daily Acwgnnqx-Wysxn-Pmn 2-C-D3-Kathrin (Cizlxhkp-Pinraz-Cll With Vit D) 750-30-1,000-1 fs-jg-gfqu-mg Tablet Active 1 TABLET PO DAILY May [...] 0 Refill(s), 05/04/24 8:44:00 PM EDT, Pharmacy: [facility], 157, cm, 03/28/24 13:53:00 EDT, Height, kg, 03/28/24 13:53:00 EDT, Dosing Weight Start Date: 04/24/24 Stop Date: 05/04/24 Status: Ordered hydroCHLOROthiazide 12.5 mg oral capsule (7 sources) Thiazide Diuretic Start: 04-19-2024 hydroCHLOROthiazide 12.5 mg oral capsule Dose : 12.5 mg = 1 cap(s), Oral, qDay, # 90 cap(s), 0 Refill(s), Pharmacy: [facility], 157, cm, 03/28/24 13:53:00 EDT, Height, [...] qDay, # 90 tab(s), 0 Refill(s), Pharmacy: [facility], 157, cm, 11/15/24 10:32:00 EDT, Height, kg, 11/15/24 10:32:00 EDT, Dosing Weight Start Date: 11/26/24 Status: Ordered Quantity: 90.0 Unit: tab(s) Repeat number: 1 Start: 04-19-2024 levothyroxine 50 mcg (0.05 mg) oral tablet Dose : 50 mcg = 1 tab(s), Oral, qDay, # 90 tab(s), 0 Refill(s), Pharmacy: [facility], 157, cm, 03/28/24 13:53:00 EDT, Height, kg, 03/28/24 13:53:00 EDT, Dosing Weight Start Date: 04/19/24 Status: Ordered Start: 05-13-2015 take 1 capsule by mo [facility] once daily Levothyroxine 50 mcg cap Indications: Acquired hypothyroidism Take 1 capsule by mouth once daily. 30 capsule 12 05/13/2015 Active Start: 05-02-2015 take 1 tablet by [facility] once daily Levothyroxine (Unithroid) 50 MCG tablet [...] Comment on above: Take 1 capsule by [facility] once daily. methocarbamol 750 mg oral tablet (18 sources) Muscle Relaxant Start: 11-15-2024 End: 02-13-2025 methocarbamol 750 mg oral tablet Dose : 750 mg = 1 tab(s), Oral, TID, PRN as needed for pain, X 30 day(s), # 90 tab(s), 2 Refill(s), 02/13/25 11:27:00 AM EDT, Pharmacy: [facility], Fibromyalgia Arthritis of both knees, 157, [...] TID, # 270 tab(s), 0 Refill(s), Pharmacy: [facility], 157.5, cm, 01/23/25 13:05:00 EDT, Height, kg, 01/23/25 13:05:00 EDT, Dosing Weight Start Date: 01/27/25 Stop Date: 04/27/25 Status: Ordered Quantity: 270.0 Unit: tab(s) Repeat number: 1 Start: 12-30-2024 oxybutynin 5 m g oral tablet Dose : 5 mg = 1 tab(s), Oral, BID, # 180 tab(s), 0 Refill(s), Pharmacy: [facility], 157, cm, 12/16/24 14:49:00 EDT, Height, kg, 12/16/24 14:39:00 EDT, Dosing Weight Start Date: 12/30/24 Status: Ordered Quantity: 180.0 Unit: tab(s) Repeat number: 1 Start: 04-19-2024 oxybutynin 5 m g oral tablet Dose : 5 mg = 1 tab(s), Oral, BID, # 180 tab(s), 0 Refill(s), Pharmacy: [facility], 157, cm, 03/28/24 13:53:00 EDT, Height, [...] BID, # 180 tab(s), 3 Refill(s), Pharmacy: [facility], 157, cm, 11/15/24 10:32:00 EDT, Height, [...] Take 2 tablets by mo [facility] once daily for 5 days. pregabalin 75 mg oral capsule (4 sources) Start: 5 End: 5 pregabalin 75 mg oral capsule Dose : 75 mg = 1 cap(s), Oral, TID, # 90 cap(s), 2 Refill(s), Pharmacy: [facility], Fibromyalgia Arthritis of both knees, 157, [...] take 1 capsule by mo [facility] once daily Pumpkin Seed Extract-Soy Germ (Azo Bladder Control) 300 mg Capsule Active 1 CAP PO DAILY May 06, 2021 12:00am QUEtiapine 50 mg oral tablet (7 sources) Atypical Antipsychotic Start: 04-26-2023 End: 06-14-2025 QUEtiapine 50 mg oral tablet Dose : 100 mg = 2 tab(s), Oral, qHS, # 180 tab(s), 1 Refill(s), Pharmacy: [facility], Bipolar disorder, 157, cm, 12/16/24 14:49:00 [...] 01, 2023 11:26am [facility] sertraline (ZOLOFT) 50 mg tablet [...] BID, # 180 tab(s), 0 Refill(s), Pharmacy: [facility], 157.5, cm, 01/23/25 13:05:00 EDT, Height, kg, 01/23/25 13:05:00 EDT, Dosing Weight Start Date: 01/27/25 Status: Ordered Quantity: 180.0 Unit: tab(s) Repeat number: 1 Start: 10-10-2024 Colestid 1 g o ral tablet Dose : 1 gram(s) = 1 tab(s), Oral, BID, # 180 tab(s), 0 Refill(s), Pharmacy: [facility], 157, cm, 03/28/24 13:53:00 EDT, Height, kg, 03/28/24 13:53:00 EDT, Dosing Weight Start Date: 10/10/24 Status: Ordered Quantity: 180.0 Unit: tab(s) Repeat number: 1 Start: 04-19-2024 Colestid 1 g o ral tablet Dose : 1 gram(s) = 1 tab(s), Oral, BID, # 180 tab(s), 0 Refill(s), Pharmacy: [facility], 157, cm, 03/28/24 13:53:00 EDT, Height, [...] Facility Urine Cultureon 02-01-2025 [facility] Proteus mirabilis [place] Count 25,000-50,000 Proteus mirabilis Proteus mirabilis Proteus [...] TMP SMX Islt CYNDY <=20 S Normal [facility] Comment on above: Performed By: #### L 400. #### [facility] [address] [place], [address] Bilirubin Test strip Ql (U)O rdered By: Annette Samano on 01-29-2025 Bilirubin Ql (U) Negative Negative [facility] Ketones Test strip Ql (U)Ord ered By: Annette Samano on 01-29-2025 Ketones Ql (U) Negative Negative [facility] Protein Test strip Ql (U)Ord ered By: Annette Samano on 01-29-2025 Protein Ql (U) Negative Negative [facility] Urinalysis, Routine (Dipstic k)on 01-29-2025 BILIRUBIN URINE Negative Normal Negative [facility] Comment on above: Order Comment: Urine , Random Performed By: #### L 400. #### [facility] [address] [place], [address] GLUCOSE, UR Normal Normal Normal [facility] Comment on above: Order Comment: Urine , Random Performed By: #### L 400. #### [facility] [address] [place], [address] KETONE UR Negative Normal Negative [facility] Comment on above: Order Comment: Urine , Random Performed By: #### L 400. #### [facility] [address] [place], [address] LEUK ESTERASE 100 /ul Abnormal Negative [facility] Comment on above: Order Comment: Urine , Random Performed By: #### L 400. #### [facility] [address] [place], [address] OCCULT BLOOD-UR Negative Normal Negative [facility] Comment on above: Order Comment: Urine , Random Performed By: #### L 400.2010, #### [facility] [address] [place], [address] pH UR 7.0 Normal 5.0 - 8.0 [facility] Comment on above: Order Comment: Urine , Random Performed By: #### L 400.2010, #### [facility] [address] [place], [address] PROT DIPSTX Negative Normal Negative [facility] Comment on above: Order Comment: Urine , Random Performed By: #### L 400.2010, #### [facility] [address] [place], [address] SP.GR. DIPSTX 1.010 Normal 1.002-1.030 [facility] Comment on above: Order Comment: Urine , Random Performed By: #### L 400.2010, #### [facility] [address] [place], [address] UROBILI Normal Normal Normal [facility] Comment on above: Order Comment: Urine , Random Performed By: #### L 400.2010, #### [facility] [address] [place], [address] Urine clarityOrdered By: Radha Samano on 01-29-2025 Clarity (U) Clear Normal Clear [facility] Comment on above: Order Comment: Urine , Random Performed By: #### L 400.2010, #### [facility] [address] [place], [address] Urine color determinationOrd ered By: Annette Samano on 01-29-2025 Color (U) Yellow Normal Yellow [facility] Comment on above: Order Comment: Urine , Random Performed By: #### L 400.2010, #### [facility] [address] [place], [place], [id number] Urine cultureOrdered By: Radha gaetano Samano on 01-29-2025 Bacteria identified Cx Nom (U) Proteus mirabilis Abnormal [facility] Bacteria identified Cx Nom (U) Proteus mirabilis#2 Abnormal [facility] Urine glucose detectionOrder ed By: Annette Samano on 01-29-2025 Glucose Ql (U) Normal mg/dl Normal [facility] Urine leukocyte esterase det ection by dipstickOrdered By: Annette Samano on 01-29-2025 Leukocyte esterase Test strip Ql (U) 100 /ul High Negative [facility] Urine nitrite test by dipsti ckOrdered By: Annette Samano on 01-29-2025 Nitrite Ql (U) Negative Normal Negative [facility] Comment on above: Order Comment: Urine , Random Performed By: #### L 400.2010, M100.0 #### [facility] [address] [place] [address], [id number] Urine pHOrdered By: Annette crowe on 01-29-2025 pH (U) 7.0 [pH] 5.0 - 8.0 [facility] Urine specific gravity measu rementOrdered By: Annette Samano on 01-29-2025 Specific gravity (U) [Rel density] 1.010 1.002-1.030 [facility] Urine urobilinogen measureme ntOrdered By: Annette Samano on 01-29-2025 Urobilinogen Ql (U) Normal mg/dl Normal [facility] LABORATORYOrdered By: Noreen Wetzel on 01-14-2025 Appearance [...] Probable Contamination. Suggest recollection if clinically indicated. [facility] UAon 01-14-2025 Color (U) Yellow Normal [facility] Comment on above: Performed By: #### U AMIC, UA #### [address] [address] Glucose (U) [Mass/Vol] Negative Normal Negative [facility] Comment on above: Performed By: #### U AMIC, UA #### [facility] [address] [place], [place] [address] Ketones Ql (U) Negative Normal Negative [facility] Comment on above: Performed By: #### U AMIC, UA #### [place] [address] UA Appear Cloudy Abnormal Clear [facility] Comment on above: Performed By: #### U AMIC, UA #### [address] [address] UA Blood Moderate Abnormal Negative [facility] Comment on above: Performed By: #### U AMIC, UA #### [address] [address] UA Leuk Est Moderate Abnormal Negative [facility] Comment on above: Performed By: #### U AMIC, UA #### [place] [address] UA Nitrite Positive Abnormal Negative [facility] Comment on above: Performed By: #### U AMIC, UA #### [place] [address] UA pH 7.5 Normal 5.0 - 8.0 [facility] Comment on above: Performed By: #### U AMIC, UA #### [place] [address] UA Protein 30 mg/dL Normal Negative [facility] Comment on above: Performed By: #### U AMIC, UA #### [address] [address] UA Spec Grav 1.015 Normal 1.015-1.025 [facility] Comment on above: Performed By: #### U AMIC, UA #### [address] [address] UA Specimen Type Clean Catch Normal [facility] Comment on above: Performed By: #### U AMIC, UA #### [place] [address] UA Urobilinogen 0.2 E.U./dL Normal 0.2-1.0 [facility] Comment on above: Performed By: #### U AMIC, UA #### [address] [address] Urobilinogen (U) [Mass/Vol] Negative Normal Negative [facility] Comment on above: Performed By: #### U AMIC, UA #### [address] [address] UAMICon 01-14-2025 UA Amorphus 2+ /hpf Normal [facility] Comment on above: Performed By: #### U AMIC, UA #### [address] [address] UA Bacteria 4+ /hpf Abnormal Negative [facility] Comment on above: Performed By: #### U AMIC, UA #### [address] [address] UA CA Ox Crystal Trace Normal [facility] Comment on above: Performed By: #### U AMIC, UA #### [place] [address] UA RBC 3-5 Abnormal 0-2 [facility] Comment on above: Performed By: #### U AMIC, UA #### [address] [address] UA Squam Epithelial 25-50 Abnormal 0-20 [facility] Comment on above: Performed By: #### U AMIC, UA #### [address] [address] UA WBC LOADED Abnormal 0-5 [facility] Comment on above: Performed By: #### U AMIC, UA #### [address] [address] .Auto Diffon 01-09-2025 Basophil, Absolute 0.1 10 3/mcL Normal 0.0-0.3 [facility] Comment on above: Performed By: #### A DIFF, ANEU, CBC #### [facility] [address] [place] [address] Basophils/100 WBC (Bld) 0.7 % Normal 0.0-2.5 [facility] Comment on above: Performed By: #### A DIFF, ANEU, CBC #### [address] [address] Eosinophil, Absolute 0.4 10 3/mcL Normal 0.0-0.7 [facility] Comment on above: Performed By: #### A DIFF, ANEU, CBC #### [address] [address] Eosinophils/100 WBC (Bld) 3.3 % Normal 0.0-6.0 [facility] Comment on above: Performed By: #### A DIFF, ANEU, CBC #### [address] [address] Lymphocyte, Absolute 2.4 10 3/mcL Normal 0.9-4.3 [facility] Comment on above: Performed By: #### A DIFF, ANEU, CBC #### [address] [address] Lymphocytes/100 WBC (Bld) 21.9 % Normal 20.0-40.0 [facility] Comment on above: Performed By: #### A DIFF, ANEU, CBC #### [address] [address] Monocyte, Absolute 0.9 10 3/mcL Normal 0.1-1.4 [facility] Comment on above: Performed By: #### A DIFF, ANEU, CBC #### [address] [address] Monocytes/100 WBC (Bld) 8.4 % Normal 2.0-13.0 [facility] Comment on above: Performed By: #### A DIFF, ANEU, CBC #### [address] [address] Neutrophils/100 WBC (Bld) 65.7 % Normal 50.0-75.0 [facility] Comment on above: Performed By: #### A DIFF, ANEU, CBC #### [address] [address] .GFRon 01-09-2025 Estimated Glomerular Filtration Rate 111 ml/min/1.73sqm Normal [facility] Comment on above: [...] By: #### A DIFF, ANEU, CBC #### [address] [address] .NEUABSon 01-09-2025 Neutrophil, Absolute 7.3 10 3/mcL Normal 2.3-8.1 [facility] Comment on above: Performed By: #### A DIFF, ANEU, CBC #### [address] [address] BMPon 01-09-2025 BUN/Creatinine Ratio 26.8 ratio High 10.0-22.0 [facility] Comment on above: Performed By: #### A DIFF, ANEU, CBC #### [address] [address] Calcium [Mass/Vol] 9.0 mg/dL Normal 8.7-10.4 [facility] Comment on above: Performed By: #### A DIFF, ANEU, CBC #### [address] [address] Chloride [Moles/Vol] 106 mmol/L Normal 98-110 [facility] Comment on above: Performed By: #### A DIFF, ANEU, CBC #### [address] [address] CO2 [Moles/Vol] 27 mmol/L Normal 22-32 [facility] Comment on above: Performed By: #### A DIFF, ANEU, CBC #### [address] [address] Creatinine [Mass/Vol] 0.56 mg/dL Normal 0.50-1.20 [facility] Comment on above: Result Comment: Test ing performed on [employer] CH analyzer using enzymatic creatinine methodology. Performed By: #### A DIFF, ANEU, CBC #### [address] [address] Electrolyte Balance 8.0 mEq/L Normal 4.0-15.0 [facility] Comment on above: Performed By: #### A DIFF, ANEU, CBC #### [address] [address] Glucose [Mass/Vol] 98 mg/dL Normal 70-110 [facility] Comment on above: Performed By: #### A DIFF, ANEU, CBC #### [address] [address] Potassium [Moles/Vol] 3.9 mmol/L Normal 3.5-5.0 [facility] Comment on above: Performed By: #### A DIFF, ANEU, CBC #### [address] [address] Sodium [Moles/Vol] 141 mmol/L Normal 136-145 [facility] Comment on above: Performed By: #### A DIFF, ANEU, CBC #### [address] [address] Urea nitrogen [Mass/Vol] 15.0 mg/dL Normal 8.0-22.0 [facility] Comment on above: Performed By: #### A DIFF, ANEU, CBC #### [address] [address] [facility] Erythrocyte distribution width (RBC) [Ratio] 17.6 % High 11.5-15.5 [facility] Comment on above: Performed By: #### A DIFF, ANEU, CBC #### [address] [address] Hematocrit (Bld) [Volume fraction] 32.0 % Low 34.0-46.0 [facility] Comment on above: Performed By: #### A DIFF, ANEU, CBC #### [address] [address] Hgb 10.6 G/dL Low 12.0-16.0 [facility] Comment on above: Performed By: #### A DIFF, ANEU, CBC #### [place] [id number] MCH (RBC) [Entitic mass] 28.0 pg Normal 27.0-33.0 [facility] Comment on above: Performed By: #### A DIFF, ANEU, CBC #### [place] [address] MCHC 33.0 G/dL Normal 32.0-36.0 [facility] Comment on above: Performed By: #### A DIFF ANEU, CBC #### [place] [address] MCV (RBC) [Entitic vol] 84.8 fL Normal 80.0-99.0 [facility] Comment on above: Performed By: #### A DIFF ANEU, CBC #### [place] [address] Platelet 342 10 3/mcL Normal 150-450 [facility] Comment on above: Performed By: #### A DIFF ANEU, CBC #### [place] [address] Platelet mean volume (Bld) [Entitic vol] 8.2 fL Normal 6.6-10.5 [facility] Comment on above: Performed By: #### A DIFF ANEU, CBC #### [place] [address] RBC 3.78 10 6/mcL Low 4.10-5.30 [facility] Comment on above: Performed By: #### A DIFF, ANEU, CBC #### [place] [address] WBC 11.2 10 3/mcL High 4.5-10.8 [facility] Comment on above: Performed By: #### A DIFF ANEU, CBC #### [place] [address] LABORATORYOrdered By: Kaykay Pierson on 01-09-2025 Beta HCG ( test) Ql (U) Negative (01/09/25 8:10 AM) [facility] LABORATORYOrdered By: [employer] on 01-09-2025 Basophils (Bld) [#/Vol] 0.1 [...] above: Interpretive Data: T esting performed on SpeechTrans analyzer using enzymatic creatinine methodology. Electrolyte Balance [...] Basophil, Absolute 0.1 10 3/mcL Normal 0.0-0.3 [facility] Comment on above: Performed By: #### C BC, ANEU, BMP, ADIFF, GFR #### [address] [address] Basophils/100 WBC (Bld) 0.7 % Normal 0.0-2.5 [facility] Comment on above: Performed By: #### C BC, ANEU, BMP, ADIFF, GFR #### [address] [address] Eosinophil, Absolute 0.3 10 3/mcL Normal 0.0-0.7 [facility] Comment on above: Performed By: #### C BC, ANEU, BMP, ADIFF, GFR #### [address] [address] Eosinophils/100 WBC (Bld) 2.7 % Normal 0.0-6.0 [facility] Comment on above: Performed By: #### C BC, ANEU, BMP, ADIFF, GFR #### [address] [address] Lymphocyte, Absolute 1.9 10 3/mcL Normal 0.9-4.3 [facility] Comment on above: Performed By: #### C BC, ANEU, BMP, ADIFF, GFR #### [address] [address] Lymphocytes/100 WBC (Bld) 18.5 % Low 20.0-40.0 [facility] Comment on above: Performed By: #### C BC, ANEU, BMP, ADIFF, GFR #### [address] [address] Monocyte, Absolute 0.8 10 3/mcL Normal 0.1-1.4 [facility] Comment on above: Performed By: #### C BC, ANEU, BMP, ADIFF, GFR #### [address] [address] Monocytes/100 WBC (Bld) 7.6 % Normal 2.0-13.0 [facility] Comment on above: Performed By: #### C BC, ANEU, BMP, ADIFF, GFR #### [address] [address] Neutrophils/100 WBC (Bld) 70.5 % Normal 50.0-75.0 [facility] Comment on above: Performed By: #### C BC, ANEU, BMP, ADIFF, GFR #### [address] [address] .GFRon 01-08-2025 Estimated Glomerular Filtration Rate 112 ml/min/1.73sqm Normal [facility] Comment on above: [...] By: #### A DIFF, ANEU, CBC #### [address] [address] .NEUABSon 01-08-2025 Neutrophil, Absolute 7.3 10 3/mcL Normal 2.3-8.1 [facility] Comment on above: Performed By: #### C BC, ANEU, BMP, ADIFF, GFR #### [address] [address] BMPon 01-08-2025 BUN/Creatinine Ratio 27.8 ratio High 10.0-22.0 [facility] Comment on above: Performed By: #### A DIFF, ANEU, CBC #### [address] [address] Calcium [Mass/Vol] 9.1 mg/dL Normal 8.7-10.4 [facility] Comment on above: Performed By: #### A DIFF, ANEU, CBC #### [address] [address] Chloride [Moles/Vol] 105 mmol/L Normal 98-110 [facility] Comment on above: Performed By: #### A DIFF, ANEU, CBC #### [address] [address] CO2 [Moles/Vol] 29 mmol/L Normal 22-32 [facility] Comment on above: Performed By: #### A DIFF, ANEU, CBC #### [address] [address] Creatinine [Mass/Vol] 0.54 mg/dL Normal 0.50-1.20 [facility] Comment on above: Result Comment: Test ing performed on SpeechTrans analyzer using enzymatic creatinine methodology. Performed By: #### A DIFF, ANEU, CBC #### [address] [address] Electrolyte Balance 6.0 mEq/L Normal 4.0-15.0 [facility] Comment on above: Performed By: #### A DIFF, ANEU, CBC #### [address] [address] Glucose [Mass/Vol] 123 mg/dL High 70-110 [facility] Comment on above: Performed By: #### A DIFF, ANEU, CBC #### [address] [address] Potassium [Moles/Vol] 3.8 mmol/L Normal 3.5-5.0 [facility] Comment on above: Performed By: #### A DIFF, ANEU, CBC #### [address] [address] Sodium [Moles/Vol] 140 mmol/L Normal 136-145 [facility] Comment on above: Performed By: #### A DIFF, ANEU, CBC #### [address] [address] Urea nitrogen [Mass/Vol] 15.0 mg/dL Normal 8.0-22.0 [facility] Comment on above: Performed By: #### A DIFF, ANEU, CBC #### [address] [address] CBCon 01-08-2025 Erythrocyte distribution width (RBC) [Ratio] 18.1 % High 11.5-15.5 [facility] Comment on above: Performed By: #### C BC, ANEU, BMP, ADIFF, GFR #### [place] [address] Hematocrit (Bld) [Volume fraction] 32.5 % Low 34.0-46.0 [facility] Comment on above: Performed By: #### C BC, ANEU, BMP, ADIFF, GFR #### [place] [address] Hgb 10.5 G/dL Low 12.0-16.0 [facility] Comment on above: Performed By: #### C BC, ANEU, BMP, ADIFF, GFR #### [place] [address] MCH (RBC) [Entitic mass] 27.9 pg Normal 27.0-33.0 [facility] Comment on above: Performed By: #### C BC, ANEU, BMP, ADIFF, GFR #### [place] [address] MCHC 32.4 G/dL Normal 32.0-36.0 [facility] Comment on above: Performed By: #### C BC, ANEU, BMP, ADIFF, GFR #### [place] [address] MCV (RBC) [Entitic vol] 86.3 fL Normal 80.0-99.0 [facility] Comment on above: Performed By: #### C BC, ANEU, BMP, ADIFF, GFR #### [place] [address] Platelet 320 10 3/mcL Normal 150-450 [facility] Comment on above: Performed By: #### C BC, ANEU, BMP, ADIFF, GFR #### [place] [address] Platelet mean volume (Bld) [Entitic vol] 8.2 fL Normal 6.6-10.5 [facility] Comment on above: Performed By: #### C BC, ANEU, BMP, ADIFF, GFR #### [place] [address] RBC 3.76 10 6/mcL Low 4.10-5.30 [facility] Comment on above: Performed By: #### C BC, ANEU, BMP, ADIFF, GFR #### [facility] [address] [place] [address] WBC 10.3 10 3/mcL Normal 4.5-10.8 [facility] Comment on above: Performed By: #### C BC, ANEU, BMP, ADIFF, GFR #### [place] [address] [place] [address] LABORATORYOrdered By: SYSTEM SYSTEM on 01-08-2025 Basophils [...] above: Interpretive Data: T esting performed on GenSpera CH analyzer using enzymatic creatinine methodology. Electrolyte [...] Basophil, Absolute 0.1 10 3/mcL Normal 0.0-0.3 [facility] Comment on above: Performed By: #### A DIFF, ANEU, CBC #### [address] [address] Basophils/100 WBC (Bld) 0.7 % Normal 0.0-2.5 [facility] Comment on above: Performed By: #### A DIFF, ANEU, CBC #### [address] [address] Eosinophil, Absolute 0.3 10 3/mcL Normal 0.0-0.7 [facility] Comment on above: Performed By: #### A DIFF, ANEU, CBC #### [address] [address] Eosinophils/100 WBC (Bld) 3.0 % Normal 0.0-6.0 [facility] Comment on above: Performed By: #### A DIFF, ANEU, CBC #### [address] [address] Lymphocyte, Absolute 2.6 10 3/mcL Normal 0.9-4.3 [facility] Comment on above: Performed By: #### A DIFF, ANEU, CBC #### [address] [address] Lymphocytes/100 WBC (Bld) 23.4 % Normal 20.0-40.0 [facility] Comment on above: Performed By: #### A DIFF, ANEU, CBC #### [address] [address] Monocyte, Absolute 0.9 10 3/mcL Normal 0.1-1.4 [facility] Comment on above: Performed By: #### A DIFF, ANEU, CBC #### [address] [address] Monocytes/100 WBC (Bld) 7.9 % Normal 2.0-13.0 [facility] Comment on above: Performed By: #### A DIFF, ANEU, CBC #### [address] [address] Neutrophils/100 WBC (Bld) 65.0 % Normal 50.0-75.0 [facility] Comment on above: Performed By: #### A DIFF, ANEU, CBC #### [address] [address] .NEUABSon 01-07-2025 Neutrophil, Absolute 7.2 10 3/mcL Normal 2.3-8.1 [facility] Comment on above: Performed By: #### A DIFF, ANEU, CBC #### [place] [address] CBCon 01-07-2025 Erythrocyte distribution width (RBC) [Ratio] 17.6 % High 11.5-15.5 [facility] Comment on above: Performed By: #### A DIFF, ANEU, CBC #### [place] [address] Hematocrit (Bld) [Volume fraction] 30.6 % Low 34.0-46.0 [facility] Comment on above: Performed By: #### A DIFF, ANEU, CBC #### [place] [address] Hgb 9.8 G/dL Low 12.0-16.0 [facility] Comment on above: Performed By: #### A DIFF, ANEU, CBC #### [place] [address] MCH (RBC) [Entitic mass] 27.7 pg Normal 27.0-33.0 [facility] Comment on above: Performed By: #### A DIFF, ANEU, CBC #### [place] [address] MCHC 32.1 G/dL Normal 32.0-36.0 [facility] Comment on above: Performed By: #### A DIFF, ANEU, CBC #### [address] [address] MCV (RBC) [Entitic vol] 86.3 fL Normal 80.0-99.0 [facility] Comment on above: Performed By: #### A DIFF, ANEU, CBC #### [place] [id number] Platelet 320 10 3/mcL Normal 150-450 [facility] Comment on above: Performed By: #### A DIFF, ANEU, CBC #### [place] [address] Platelet mean volume (Bld) [Entitic vol] 8.5 fL Normal 6.6-10.5 [facility] Comment on above: Performed By: #### A DIFF, ANEU, CBC #### [place] [address] RBC 3.54 10 6/mcL Low 4.10-5.30 [facility] Comment on above: Performed By: #### A DIFF, ANEU, CBC #### [place] [address] WBC 11.1 10 3/mcL High 4.5-10.8 [facility] Comment on above: Performed By: #### A DIFF, ANEU, CBC #### [place] [address] LABORATORYOrdered By: SYSTEM SYSTEM on 01-07-2025 Basophils [...] Basophil, Absolute 0.1 10 3/mcL Normal 0.0-0.3 [facility] Comment on above: Performed By: #### C BC, ANEU, BMP, ADIFF, GFR #### [facility] [address] [place] [address] Basophils/100 WBC (Bld) 0.9 % Normal 0.0-2.5 [facility] Comment on above: Performed By: #### C BC, ANEU, BMP, ADIFF, GFR #### [address] [address] Eosinophil, Absolute 0.3 10 3/mcL Normal 0.0-0.7 [facility] Comment on above: Performed By: #### C BC, ANEU, BMP, ADIFF, GFR #### [address] [address] Eosinophils/100 WBC (Bld) 2.8 % Normal 0.0-6.0 [facility] Comment on above: Performed By: #### C BC, ANEU, BMP, ADIFF, GFR #### [address] [address] Lymphocyte, Absolute 2.5 10 3/mcL Normal 0.9-4.3 [facility] Comment on above: Performed By: #### C BC, ANEU, BMP, ADIFF, GFR #### [address] [address] Lymphocytes/100 WBC (Bld) 21.2 % Normal 20.0-40.0 [facility] Comment on above: Performed By: #### C BC, ANEU, BMP, ADIFF, GFR #### [address] [address] Monocyte, Absolute 1.0 10 3/mcL Normal 0.1-1.4 [facility] Comment on above: Performed By: #### C BC, ANEU, BMP, ADIFF, GFR #### [address] [address] Monocytes/100 WBC (Bld) 8.3 % Normal 2.0-13.0 [facility] Comment on above: Performed By: #### C BC, ANEU, BMP, ADIFF, GFR #### [address] [address] Neutrophils/100 WBC (Bld) 66.8 % Normal 50.0-75.0 [facility] Comment on above: Performed By: #### C BC, ANEU, BMP, ADIFF, GFR #### [address] [address] .GFRon 01-06-2025 Estimated Glomerular Filtration Rate 104 ml/min/1.73sqm Normal [facility] Comment on above: [...] C BC, ANEU, BMP, ADIFF, GFR #### [address] [address] .NEUABSon 01-06-2025 Neutrophil, Absolute 7.8 10 3/mcL Normal 2.3-8.1 [facility] Comment on above: Performed By: #### C BC, ANEU, BMP, ADIFF, GFR #### [address] [address] [facility] 01-06-2025 BUN/Creatinine Ratio 18.3 ratio Normal 10.0-22.0 [facility] Comment on above: Performed By: #### C BC, ANEU, BMP, ADIFF, GFR #### [address] [address] Calcium [Mass/Vol] 9.3 mg/dL Normal 8.7-10.4 [facility] Comment on above: Performed By: #### C BC, ANEU, BMP, ADIFF, GFR #### [address] [address] Chloride [Moles/Vol] 105 mmol/L Normal 98-110 [facility] Comment on above: Performed By: #### C BC, ANEU, BMP, ADIFF, GFR #### [address] [address] CO2 [Moles/Vol] 32 mmol/L Normal 22-32 [facility] Comment on above: Performed By: #### C BC, ANEU, BMP, ADIFF, GFR #### [address] [address] Creatinine [Mass/Vol] 0.71 mg/dL Normal 0.50-1.20 [facility] Comment on above: Result Comment: Test ing performed on SpeechTrans analyzer using enzymatic creatinine methodology. Performed By: #### C BC, ANEU, BMP, ADIFF, GFR #### [address] [address] Electrolyte Balance 4.0 mEq/L Normal 4.0-15.0 [facility] Comment on above: Performed By: #### C BC, ANEU, BMP, ADIFF, GFR #### [address] [address] Glucose [Mass/Vol] 104 mg/dL Normal 70-110 [facility] Comment on above: Performed By: #### C BC, ANEU, BMP, ADIFF, GFR #### [place] [id number] Potassium [Moles/Vol] 4.3 mmol/L Normal 3.5-5.0 [facility] Comment on above: Performed By: #### C BC, ANEU, BMP, ADIFF, GFR #### [place] [id number] Sodium [Moles/Vol] 141 mmol/L Normal 136-145 [facility] Comment on above: Performed By: #### C BC, ANEU, BMP, ADIFF, GFR #### [address] [address] Urea nitrogen [Mass/Vol] 13.0 mg/dL Normal 8.0-22.0 [facility] Comment on above: Performed By: #### C BC, ANEU, BMP, ADIFF, GFR #### [address] [address] CBCon 01-06-2025 Erythrocyte distribution width (RBC) [Ratio] 18.2 % High 11.5-15.5 [facility] Comment on above: Performed By: #### C BC, ANEU, BMP, ADIFF, GFR #### [place] [address] Hematocrit (Bld) [Volume fraction] 30.2 % Low 34.0-46.0 [facility] Comment on above: Performed By: #### C BC, ANEU, BMP, ADIFF, GFR #### [place] [address] Hgb 9.8 G/dL Low 12.0-16.0 [facility] Comment on above: Performed By: #### C BC, ANEU, BMP, ADIFF, GFR #### [place] [address] MCH (RBC) [Entitic mass] 28.1 pg Normal 27.0-33.0 [facility] Comment on above: Performed By: #### C BC, ANEU, BMP, ADIFF, GFR #### [place] [address] MCHC 32.3 G/dL Normal 32.0-36.0 [facility] Comment on above: Performed By: #### C BC, ANEU, BMP, ADIFF, GFR #### [place] [address] MCV (RBC) [Entitic vol] 86.9 fL Normal 80.0-99.0 [facility] Comment on above: Performed By: #### C BC, ANEU, BMP, ADIFF, GFR #### [place] [address] Platelet 294 10 3/mcL Normal 150-450 [facility] Comment on above: Performed By: #### C BC, ANEU, BMP, ADIFF, GFR #### [place] [address] Platelet mean volume (Bld) [Entitic vol] 8.3 fL Normal 6.6-10.5 [facility] Comment on above: Performed By: #### C BC, ANEU, BMP, ADIFF, GFR #### [place] [address] RBC 3.48 10 6/mcL Low 4.10-5.30 [facility] Comment on above: Performed By: #### C BC, ANEU, BMP, ADIFF, GFR #### [facility] [address] [place] [address] WBC 11.7 10 3/mcL High 4.5-10.8 [facility] Comment on above: Performed By: #### C BC, ANEU, BMP, ADIFF, GFR #### [facility] [address] [place] [address] LABORATORYOrdered By: SYSTEM SYSTEM on 01-06-2025 Calcium [Mass/Vol] 9.3 mg/dL Normal 8.7 - 10. 4 mg/dL ADM SS Chloride [Moles/Vol] 105 mmol/L Normal 98 - 11 0 mEq/L ADM SS CO2 [Moles/Vol] 32 mmol/L Normal 22 - 32 mEq/L AH ADM SS Creatinine [Mass/Vol] 0.71 mg/dL Normal 0.50 - 1.20 mg/dL AH ADM SS Comment on above: Interpretive Data: T esting performed on SpeechTrans analyzer using enzymatic creatinine methodology. Electrolyte Balance [...] Basophil, Absolute 0.1 10 3/mcL Normal 0.0-0.3 [facility] Comment on above: Performed By: #### A DIFF, ANEU, CBC #### [address] [address] Basophils/100 WBC (Bld) 1.0 % Normal 0.0-2.5 [facility] Comment on above: Performed By: #### A DIFF, ANEU, CBC #### [address] [address] Eosinophil, Absolute 0.4 10 3/mcL Normal 0.0-0.7 [facility] Comment on above: Performed By: #### A DIFF, ANEU, CBC #### [address] [address] Eosinophils/100 WBC (Bld) 3.4 % Normal 0.0-6.0 [facility] Comment on above: Performed By: #### A DIFF, ANEU, CBC #### [address] [address] Lymphocyte, Absolute 3.0 10 3/mcL Normal 0.9-4.3 [facility] Comment on above: Performed By: #### A DIFF, ANEU, CBC #### [address] [address] Lymphocytes/100 WBC (Bld) 26.6 % Normal 20.0-40.0 [facility] Comment on above: Performed By: #### A DIFF, ANEU, CBC #### [address] [address] Monocyte, Absolute 0.7 10 3/mcL Normal 0.1-1.4 [facility] Comment on above: Performed By: #### A DIFF, ANEU, CBC #### [address] [address] Monocytes/100 WBC (Bld) 6.5 % Normal 2.0-13.0 [facility] Comment on above: Performed By: #### A DIFF ANEU, CBC #### [address] [address] Neutrophils/100 WBC (Bld) 62.5 % Normal 50.0-75.0 [facility] Comment on above: Performed By: #### A DIFF ANEU, CBC #### [address] [address] .GFRon 01-04-2025 Estimated Glomerular Filtration Rate 110 ml/min/1.73sqm Normal [facility] Comment on above: [...] By: #### A DIFF ANEU, CBC #### [address] [address] .NEUABSon 01-04-2025 Neutrophil, Absolute 7.0 10 3/mcL Normal 2.3-8.1 [facility] Comment on above: Performed By: #### A DIFF ANEU, CBC #### [address] [address] BMPon 01-04-2025 BUN/Creatinine Ratio 24.1 ratio High 10.0-22.0 [facility] Comment on above: Performed By: #### A DIFF ANEU, CBC #### [address] [address] Calcium [Mass/Vol] 8.7 mg/dL Normal 8.7-10.4 [facility] Comment on above: Performed By: #### A DIFF, ANEU, CBC #### [address] [address] Chloride [Moles/Vol] 106 mmol/L Normal 98-110 [facility] Comment on above: Performed By: #### A DIFF, ANEU, CBC #### [address] [address] CO2 [Moles/Vol] 29 mmol/L Normal 22-32 [facility] Comment on above: Performed By: #### A DIFF, ANEU, CBC #### [address] [address] Creatinine [Mass/Vol] 0.58 mg/dL Normal 0.50-1.20 [facility] Comment on above: Result Comment: Test ing performed on SpeechTrans analyzer using enzymatic creatinine methodology. Performed By: #### A DIFF ANEU, CBC #### [address] [address] Electrolyte Balance 5.0 mEq/L Normal 4.0-15.0 [facility] Comment on above: Performed By: #### A DIFF, ANEU, CBC #### [address] [address] Glucose [Mass/Vol] 99 mg/dL Normal 70-110 [facility] Comment on above: Performed By: #### A DIFF, ANEU, CBC #### [address] [address] Potassium [Moles/Vol] 4.0 mmol/L Normal 3.5-5.0 [facility] Comment on above: Performed By: #### A DIFF, ANEU, CBC #### [address] [address] Sodium [Moles/Vol] 140 mmol/L Normal 136-145 [facility] Comment on above: Performed By: #### A DIFF, ANEU, CBC #### [address] [address] Urea nitrogen [Mass/Vol] 14.0 mg/dL Normal 8.0-22.0 [facility] Comment on above: Performed By: #### A DIFF, ANEU, CBC #### [address] [address] CBCon 01-04-2025 Erythrocyte distribution width (RBC) [Ratio] 17.0 % High 11.5-15.5 [facility] Comment on above: Performed By: #### A DIFF, ANEU, CBC #### [place] [address] Hematocrit (Bld) [Volume fraction] 29.4 % Low 34.0-46.0 [facility] Comment on above: Performed By: #### A DIFF, ANEU, CBC #### [place] [address] Hgb 9.3 G/dL Low 12.0-16.0 [facility] Comment on above: Performed By: #### A DIFF, ANEU, CBC #### [place] [address] MCH (RBC) [Entitic mass] 27.6 pg Normal 27.0-33.0 [facility] Comment on above: Performed By: #### A DIFF, ANEU, CBC #### [place] [address] MCHC 31.8 G/dL Low 32.0-36.0 [facility] Comment on above: Performed By: #### A DIFF, ANEU, CBC #### [place] [address] MCV (RBC) [Entitic vol] 86.8 fL Normal 80.0-99.0 [facility] Comment on above: Performed By: #### A DIFF, ANEU, CBC #### [place] [address] Platelet 264 10 3/mcL Normal 150-450 [facility] Comment on above: Performed By: #### A DIFF, ANEU, CBC #### [place] [address] Platelet mean volume (Bld) [Entitic vol] 8.3 fL Normal 6.6-10.5 [facility] Comment on above: Performed By: #### A DIFF, ANEU, CBC #### [place] [address] RBC 3.39 10 6/mcL Low 4.10-5.30 [facility] Comment on above: Performed By: #### A DIFF, ANEU, CBC #### [address] [address] WBC 11.3 10 3/mcL High 4.5-10.8 [facility] Comment on above: Performed By: #### A DIFF, ANEU, CBC #### [address] [address] .Auto Diffon 01-03-2025 Basophil, Absolute 0.1 10 3/mcL Normal 0.0-0.3 [facility] Comment on above: Performed By: #### A DIFF, ANEU, CBC #### [address] [address] Basophils/100 WBC (Bld) 0.8 % Normal 0.0-2.5 [facility] Comment on above: Performed By: #### A DIFF, ANEU, CBC #### [address] [address] Eosinophil, Absolute 0.5 10 3/mcL Normal 0.0-0.7 [facility] Comment on above: Performed By: #### A DIFF, ANEU, CBC #### [address] [address] Eosinophils/100 WBC (Bld) 3.4 % Normal 0.0-6.0 [facility] Comment on above: Performed By: #### A DIFF, ANEU, CBC #### [address] [address] Lymphocyte, Absolute 3.6 10 3/mcL Normal 0.9-4.3 [facility] Comment on above: Performed By: #### A DIFF, ANEU, CBC #### [address] [address] Lymphocytes/100 WBC (Bld) 26.0 % Normal 20.0-40.0 [facility] Comment on above: Performed By: #### A DIFF, ANEU, CBC #### [address] [address] Monocyte, Absolute 0.9 10 3/mcL Normal 0.1-1.4 [facility] Comment on above: Performed By: #### A DIFF, ANEU, CBC #### [address] [address] Monocytes/100 WBC (Bld) 6.2 % Normal 2.0-13.0 [facility] Comment on above: Performed By: #### A DIFF ANEU, CBC #### [address] [address] Neutrophils/100 WBC (Bld) 63.6 % Normal 50.0-75.0 [facility] Comment on above: Performed By: #### A DIFF ANEU, CBC #### [address] [address] .GFRon 01-03-2025 Estimated Glomerular Filtration Rate 109 ml/min/1.73sqm Normal [facility] Comment on above: [...] By: #### A JARRET ANEU, CBC #### [address] [address] .NEUABSon 01-03-2025 Neutrophil, Absolute 8.9 10 3/mcL High 2.3-8.1 [facility] Comment on above: Performed By: #### A DIFF ANEU, CBC #### [address] [address] APTTon 01-03-2025 aPTT Coag (Bld) [Time] 31.5 s Normal 25.0-35.0 [facility] Comment on above: Result Comment: For Heparin anticoagulation therapy, the recommended therapeutic range is: 54-77 seconds (APTT Correlation with Anti-Xa therapeutic range of 0.3-0.7 units/ml). PLEASE REFERENCE THE PHARMACY PROTOCOL FOR DOSING. Performed By: #### A DIFF, ANEU, CBC #### [address] [address] BMPon 01-03-2025 BUN/Creatinine Ratio 26.2 ratio High 10.0-22.0 [facility] Comment on above: Performed By: #### A DIFF, ANEU, CBC #### [address] [address] Calcium [Mass/Vol] 9.5 mg/dL Normal 8.7-10.4 [facility] Comment on above: Performed By: #### A DIFF, ANEU, CBC #### [address] [address] Chloride [Moles/Vol] 105 mmol/L Normal 98-110 [facility] Comment on above: Performed By: #### A DIFF, ANEU, CBC #### [address] [address] CO2 [Moles/Vol] 29 mmol/L Normal 22-32 [facility] [facility] Comment on above: Performed By: #### A DIFF, ANEU, CBC #### [address] [address] Creatinine [Mass/Vol] 0.61 mg/dL Normal 0.50-1.20 [facility] Comment on above: Result Comment: Test ing performed on SpeechTrans analyzer using enzymatic creatinine methodology. Performed By: #### A DIFF, ANEU, CBC #### [address] [address] Electrolyte Balance 6.0 mEq/L Normal 4.0-15.0 [facility] Comment on above: Performed By: #### A DIFF, ANEU, CBC #### [address] [address] Glucose [Mass/Vol] 99 mg/dL Normal 70-110 [facility] Comment on above: Performed By: #### A DIFF, ANEU, CBC #### [address] [address] Potassium [Moles/Vol] 4.2 mmol/L Normal 3.5-5.0 [facility] Comment on above: Performed By: #### A DIFF, ANEU, CBC #### [address] [address] Sodium [Moles/Vol] 140 mmol/L Normal 136-145 [facility] Comment on above: Performed By: #### A DIFF, ANEU, CBC #### [address] [address] Urea nitrogen [Mass/Vol] 16.0 mg/dL Normal 8.0-22.0 [facility] Comment on above: Performed By: #### A DIFF, ANEU, CBC #### [address] [address] CBCon 01-03-2025 Erythrocyte distribution width (RBC) [Ratio] 17.1 % High 11.5-15.5 [facility] Comment on above: Performed By: #### B MP, CBC, ANEU, MG, GFR, ADIFF #### [place] [address] Hematocrit (Bld) [Volume fraction] 28.9 % Low 34.0-46.0 [facility] Comment on above: Performed By: #### B MP, CBC, ANEU, MG, GFR, ADIFF #### [place] [address] Hgb 9.4 G/dL Low 12.0-16.0 [facility] Comment on above: Performed By: #### B MP, CBC, ANEU, MG, GFR, ADIFF #### [place] [id number] MCH (RBC) [Entitic mass] 27.7 pg Normal 27.0-33.0 [facility] Comment on above: Performed By: #### B MP, CBC, ANEU, MG, GFR, ADIFF #### [place] [id number] MCHC 32.4 G/dL Normal 32.0-36.0 [facility] Comment on above: Performed By: #### B MP, CBC, ANEU, MG, GFR, ADIFF #### [place] [address] MCV (RBC) [Entitic vol] 85.7 fL Normal 80.0-99.0 [facility] Comment on above: Performed By: #### B MP, CBC, ANEU, MG, GFR, ADIFF #### [place] [address] Platelet 272 10 3/mcL Normal 150-450 [facility] Comment on above: Performed By: #### B MP, CBC, ANEU, MG, GFR, ADIFF #### [place] [address] Platelet mean volume (Bld) [Entitic vol] 8.8 fL Normal 6.6-10.5 [facility] Comment on above: Performed By: #### B MP, CBC, ANEU, MG, GFR, ADIFF #### [place] [address] RBC 3.38 10 6/mcL Low 4.10-5.30 [facility] Comment on above: Performed By: #### B MP, CBC, ANEU, MG, GFR, ADIFF #### [place] [address] WBC 14.0 10 3/mcL High 4.5-10.8 [facility] Comment on above: Performed By: #### B MP, CBC, ANEU, MG, GFR, ADIFF #### [place] [address] FIBon 01-03-2025 Fibrinogen >700 High 250-560 [facility] Comment on above: Performed By: #### A DIFF, ANEU, CBC #### [place] [address] LABORATORYOrdered By: SYSTEM SYSTEM on 01-03-2025 aPTT [...] on above: Interpretive Data: T luis a [employer] (CHEST, 1991, 102:312S-25S) [...] 01-03-2025 Magnesium [Mass/Vol] 2.0 mg/dL Normal 1.6-2.4 [facility] Comment on above: Performed By: #### A DIFF, ANEU, CBC #### [place] [address] PROon 01-03-2025 INR Coag (PPP) [Relative time] 1.0 {INR} Normal [facility] Comment on above: Result Comment: The [employer] (CHEST, 1991, 102:312S-25S) recommended therapeutic range for oral anticoagulant therapy is: LOW RISK: Prophylaxis of venous thrombosis INR: 2.0-3.0 Treatment of pulmonary embolism 2.0-3.0 Prevention of systemic embolism 2.0-3.0 HIGH RISK: Mechanical prosthetic valves 2.5-3.5 Performed By: #### P RO #### [address] [address] PT Coag (PPP) [Time] 11.6 s Normal 9.0-14.4 [facility] Comment on above: Result Comment: Effe ctive 02/26/08, Protime results may be affected by some antibiotics (i.e. Ciprofloxacin, Azithromycin, Bactrim) which may potentiate the action of oral anticoagulants, with further increases in Protime/INR. Performed By: #### P RO #### [facility] [address] [place] [id number] .Auto Diffon 01-02-2025 Basophil, Absolute 0.1 10 3/mcL Normal 0.0-0.3 [facility] Comment on above: Performed By: #### M G, BMP, CBC, GFR, ANEU, ADIFF #### [address] [address] Basophils/100 WBC (Bld) 0.7 % Normal 0.0-2.5 [facility] Comment on above: Performed By: #### M G, BMP, CBC, GFR, ANEU, ADIFF #### [address] [address] Eosinophil, Absolute 0.4 10 3/mcL Normal 0.0-0.7 [facility] Comment on above: Performed By: #### M G, BMP, CBC, GFR, ANEU, ADIFF #### [address] [address] Eosinophils/100 WBC (Bld) 3.5 % Normal 0.0-6.0 [facility] Comment on above: Performed By: #### M G, BMP, CBC, GFR, ANEU, ADIFF #### [address] [address] Lymphocyte, Absolute 3.3 10 3/mcL Normal 0.9-4.3 [facility] Comment on above: Performed By: #### M G, BMP, CBC, GFR, ANEU, ADIFF #### [address] [address] Lymphocytes/100 WBC (Bld) 25.5 % Normal 20.0-40.0 [facility] Comment on above: Performed By: #### M G, BMP, CBC, GFR, ANEU, ADIFF #### [address] [address] Monocyte, Absolute 0.7 10 3/mcL Normal 0.1-1.4 [facility] Comment on above: Performed By: #### M G, BMP, CBC, GFR, ANEU, ADIFF #### [address] [address] Monocytes/100 WBC (Bld) 5.2 % Normal 2.0-13.0 [facility] Comment on above: Performed By: #### M G, BMP, CBC, GFR, ANEU, ADIFF #### [address] [address] Neutrophils/100 WBC (Bld) 65.1 % Normal 50.0-75.0 [facility] Comment on above: Performed By: #### M G, BMP, CBC, GFR, ANEU, ADIFF #### [address] [address] .GFRon 01-02-2025 Estimated Glomerular Filtration Rate 109 ml/min/1.73sqm Normal [facility] Comment on above: Result Comment: Stages [...] G, BMP, CBC, GFR, ANEU, ADIFF #### [address] [address] .NEUABSon 01-02-2025 Neutrophil, Absolute 8.3 10 3/mcL High 2.3-8.1 [facility] Comment on above: Performed By: #### M G, BMP, CBC, GFR, ANEU, ADIFF #### [address] [address] BMPon 01-02-2025 BUN/Creatinine Ratio 25 ratio Normal 7-27 [facility] Comment on above: Performed By: #### M G, BMP, CBC, GFR, ANEU, ADIFF #### [address] [address] Calcium [Mass/Vol] 8.6 mg/dL Normal 8.4-10.2 [facility] Comment on above: Performed By: #### M G, BMP, CBC, GFR, ANEU, ADIFF #### [place] [id number] Chloride [Moles/Vol] 108 mmol/L High 98-107 [facility] Comment on above: Performed By: #### M G, BMP, CBC, GFR, ANEU, ADIFF #### [place] [address] CO2 [Moles/Vol] 30 mmol/L High 22-29 [facility] Comment on above: Performed By: #### M G, BMP, CBC, GFR, ANEU, ADIFF #### [place] [address] Creatinine [Mass/Vol] 0.61 mg/dL Normal 0.51-0.95 [facility] Comment on above: Performed By: #### M G, BMP, CBC, GFR, ANEU, ADIFF #### [place] [address] Electrolyte Balance 5.0 mEq/L Normal 4.0-15.0 [facility] Comment on above: Performed By: #### M G, BMP, CBC, GFR, ANEU, ADIFF #### [place] [address] Glucose [Mass/Vol] 121 mg/dL High 70-105 [facility] Comment on above: Performed By: #### M G, BMP, CBC, GFR, ANEU, ADIFF #### [place] [address] Potassium [Moles/Vol] 4.0 mmol/L Normal 3.5-5.1 [facility] Comment on above: Performed By: #### M G, BMP, CBC, GFR, ANEU, ADIFF #### [address] [address] Sodium [Moles/Vol] 143 mmol/L Normal 136-145 [facility] Comment on above: Performed By: #### M G, BMP, CBC, GFR, ANEU, ADIFF #### [address] [address] Urea nitrogen [Mass/Vol] 15 mg/dL Normal 7-18 [facility] Comment on above: Performed By: #### M G, BMP, CBC, GFR, ANEU, ADIFF #### [address] [address] CBCon 01-02-2025 Erythrocyte distribution width (RBC) [Ratio] 16.6 % High 11.5-15.5 [facility] Comment on above: Performed By: #### M G, BMP, CBC, GFR, ANEU, ADIFF #### [place] [phone] Hematocrit (Bld) [Volume fraction] 27.2 % Low 34.0-46.0 [facility] Comment on above: Performed By: #### M G, BMP, CBC, GFR, ANEU, ADIFF #### [place] [id number] Hgb 8.8 G/dL Low 12.0-16.0 [facility] Comment on above: Performed By: #### M G, BMP, CBC, GFR, ANEU, ADIFF #### [address] [address] MCH (RBC) [Entitic mass] 27.8 pg Normal 27.0-33.0 [facility] Comment on above: Performed By: #### M G, BMP, CBC, GFR, ANEU, ADIFF #### [place] [id number] MCHC 32.5 G/dL Normal 32.0-36.0 [facility] Comment on above: Performed By: #### M G, BMP, CBC, GFR, ANEU, ADIFF #### [place] [id number] MCV (RBC) [Entitic vol] 85.6 fL Normal 80.0-99.0 [facility] Comment on above: Performed By: #### M G, BMP, CBC, GFR, ANEU, ADIFF #### [address] [address] Platelet 233 10 3/mcL Normal 150-450 [facility] Comment on above: Performed By: #### M G, BMP, CBC, GFR, ANEU, ADIFF #### [address] [address] Platelet mean volume (Bld) [Entitic vol] 8.9 fL Normal 6.6-10.5 [facility] Comment on above: Performed By: #### M G, BMP, CBC, GFR, ANEU, ADIFF #### [address] [address] RBC 3.17 10 6/mcL Low 4.10-5.30 [facility] Comment on above: Performed By: #### M G, BMP, CBC, GFR, ANEU, ADIFF #### [address] [address] WBC 12.8 10 3/mcL High 4.5-10.8 [facility] Comment on above: Performed By: #### M G, BMP, CBC, GFR, ANEU, ADIFF #### [address] [address] MGon 01-02-2025 Magnesium [Mass/Vol] 2.0 mg/dL Normal 1.8-2.4 [facility] Comment on above: Performed By: #### M G, BMP, CBC, GFR, ANEU, ADIFF #### [address] [address] MRI SPINE LUMBAR W/O CONTRAS Ton 01-02-2025 [...] 5:30:09 AM Ordering Provider: KEATON ETIENNE Normal [facility] .Auto Diffon 01-01-2025 Basophil, Absolute 0.1 10 3/mcL Normal 0.0-0.3 [facility] Comment on above: Performed By: #### U AMIC, UA #### [address] [address] Basophils/100 WBC (Bld) 0.8 % Normal 0.0-2.5 [facility] Comment on above: Performed By: #### U AMIC, UA #### [address] [address] Eosinophil, Absolute 0.2 10 3/mcL Normal 0.0-0.7 [facility] Comment on above: Performed By: #### U AMIC, UA #### [address] [address] Eosinophils/100 WBC (Bld) 1.1 % Normal 0.0-6.0 [facility] Comment on above: Performed By: #### U AMIC, UA #### [place] [address] [place], [place] [address] Lymphocyte, Absolute 2.4 10 3/mcL Normal 0.9-4.3 [facility] Comment on above: Performed By: #### U AMIC, UA #### [place] [address] [place], [place] [address] Lymphocytes/100 WBC (Bld) 14.6 % Low 20.0-40.0 [facility] Comment on above: Performed By: #### U AMIC, UA #### [place] [address] [place], [place] [address] Monocyte, Absolute 0.9 10 3/mcL Normal 0.1-1.4 [facility] Comment on above: Performed By: #### U AMIC, UA #### [place] [address] [place], [place] [address] Monocytes/100 WBC (Bld) 5.3 % Normal 2.0-13.0 [facility] Comment on above: Performed By: #### U AMIC, UA #### [address] [address] Neutrophils/100 WBC (Bld) 78.2 % High 50.0-75.0 [facility] Comment on above: Performed By: #### U AMIC, UA #### [address] [address] .GFRon 01-01-2025 Estimated Glomerular Filtration Rate 106 ml/min/1.73sqm Normal [facility] Comment on above: Result Comment: Stages [...] Performed By: #### U AMIC, UA #### [address] [address] .MDWon 01-01-2025 Monocyte Distribution Width Not performed Normal 0.00-20.00 [facility] Comment on above: Result Comment: MDW testing performed only on adult ER patients between the ages of 18-89 years. Performed By: #### U AMIC, UA #### [address] [address] .NEUABSon 01-01-2025 Neutrophil, Absolute 12.8 10 3/mcL High 2.3-8.1 [facility] Comment on above: Performed By: #### U AMIC, UA #### [address] [address] BMPon 01-01-2025 BUN/Creatinine Ratio 21 ratio Normal 7-27 [facility] Comment on above: Performed By: #### U AMIC, UA #### [address] [address] Calcium [Mass/Vol] 8.6 mg/dL Normal 8.4-10.2 [facility] Comment on above: Performed By: #### U AMIC, UA #### [address] [address] Chloride [Moles/Vol] 104 mmol/L Normal 98-107 [facility] Comment on above: Performed By: #### U AMIC, UA #### [address] [address] CO2 [Moles/Vol] 30 mmol/L High 22-29 [facility] Comment on above: Performed By: #### U AMIC, UA #### [address] [address] Creatinine [Mass/Vol] 0.67 mg/dL Normal 0.51-0.95 [facility] Comment on above: Performed By: #### U AMIC, UA #### [address] [address] Electrolyte Balance 5.0 mEq/L Normal 4.0-15.0 [facility] Comment on above: Performed By: #### U AMIC, UA #### [address] [address] Glucose [Mass/Vol] 114 mg/dL High 70-105 [facility] Comment on above: Performed By: #### U AMIC, UA #### [address] [address] Potassium [Moles/Vol] 4.4 mmol/L Normal 3.5-5.1 [facility] Comment on above: Performed By: #### U AMIC, UA #### [address] [address] Sodium [Moles/Vol] 139 mmol/L Normal 136-145 [facility] Comment on above: Performed By: #### U AMIC, UA #### [address] [address] Urea nitrogen [Mass/Vol] 14 mg/dL Normal 7-18 [facility] Comment on above: Performed By: #### U AMIC, UA #### [address] [address] CBCon 01-01-2025 Erythrocyte distribution width (RBC) [Ratio] 16.6 % High 11.5-15.5 [facility] Comment on above: Performed By: #### U AMIC, UA #### [address] [address] Hematocrit (Bld) [Volume fraction] 30.7 % Low 34.0-46.0 [facility] Comment on above: Performed By: #### U AMIC, UA #### [address] [address] Hgb 10.0 G/dL Low 12.0-16.0 [facility] Comment on above: Performed By: #### U AMIC, UA #### [address] [address] MCH (RBC) [Entitic mass] 27.7 pg Normal 27.0-33.0 [facility] Comment on above: Performed By: #### U AMIC, UA #### [address] [address] MCHC 32.5 G/dL Normal 32.0-36.0 [facility] Comment on above: Performed By: #### U AMIC, UA #### [address] [address] MCV (RBC) [Entitic vol] 85.4 fL Normal 80.0-99.0 [facility] Comment on above: Performed By: #### U AMIC, UA #### [address] [address] Platelet 273 10 3/mcL Normal 150-450 [facility] Comment on above: Performed By: #### U AMIC, UA #### [address] [address] Platelet mean volume (Bld) [Entitic vol] 8.6 fL Normal 6.6-10.5 [facility] Comment on above: Performed By: #### U AMIC, UA #### [address] [address] RBC 3.60 10 6/mcL Low 4.10-5.30 [facility] Comment on above: Performed By: #### U AMIC, UA #### [address] [address] WBC 16.3 10 3/mcL High 4.5-10.8 [facility] Comment on above: Performed By: #### U AMIC, UA #### [address] [address] [address] THORAX W/ CONTRASTon 12-13 CT THORAX [...] 12:01:53 PM Ordering Provider: CAREY TAN Normal [facility] UAon 01-01-2025 Color (U) Yellow Normal [facility] Comment on above: Performed By: #### U A #### [address] [address] Glucose (U) [Mass/Vol] Negative Normal Negative [facility] Comment on above: Performed By: #### U A #### [address] [address] Ketones Ql (U) Negative Normal Negative [facility] Comment on above: Performed By: #### U A #### [address] [address] UA Appear Clear Normal Clear [facility] Comment on above: Performed By: #### U A #### [place] [address] UA Blood Negative Normal Negative [facility] Comment on above: Performed By: #### U A #### [place] [address] UA Leuk Est Negative Normal Negative [facility] Comment on above: Performed By: #### U A #### [place] [address] UA Nitrite Negative Normal Negative [facility] Comment on above: Performed By: #### U A #### [place] [address] UA pH 7.5 Normal 5.0 - 8.0 [facility] Comment on above: Performed By: #### U A #### [place] [address] UA Protein Negative Normal Negative [facility] Comment on above: Performed By: #### U A #### [place] [address] UA Spec Grav 1.010 Abnormal 1.015-1.025 [facility] Comment on above: Performed By: #### U A #### [place] [address] UA Specimen Type Clean Catch Normal [facility] Comment on above: Performed By: #### U A #### [place] [address] UA Urobilinogen 0.2 E.U./dL Normal 0.2-1.0 [facility] Comment on above: Performed By: #### U A #### [place] [address] Urobilinogen (U) [Mass/Vol] Negative Normal Negative [facility] Comment on above: Performed By: #### U A #### [place] [address] ED NOTEon 12-28-2024 ED NOTE HNO ID: [id number] Author: DERRICK LUNA RN Service: ? 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 Discharge paperwork and follow up discussed. [facility] ED NOTE HNO ID: [id number] Author: DERRICK LUAN RN Service: ? Author Type: Registered Nurse Type: ED Notes Filed: 12/28/2024 14:02 Note Text: Assisted pt to bathroom. Pt able to pivot and stand with minimal assistance. Able to walk a few steps with walker but continues to complain of pain. Dr Noble aware and in talking with pt. [facility] ED NOTE HNO ID: [id number] Author: DERRICK LUNA RN Service: ? Author Type: Registered Nurse Type: ED Notes Filed: 12/28/2024 12:59 Note Text: Pt arrived via medic with c/o leg pain. Pt was here other day for. States toradol was helpful before. States she took percocet earlier for without relief. [place], warm, dry. No apparent distress. Alert and oriented. [facility] ED PROV NOTEon 12-28-2024 ED PROV NOTE HNO ID: [id number] Author: TALHA NOBLE MD Service: Emergency Medicine [...] of 12/28/24 1412 Sciatica of right side Tube Coater (more content not included)... 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 VEGETABLE: No RADIOLOGY DEPARTMENT: CT; Exam(s) Completed: Abdomen/Pelvis PERIPHERAL IV DATA: Not applicable SIGNED BY: GARDENIA Owens) / Kaushik Hays December 25, 2024 4:32 PM Normal [facility] ALLIED HEALTH HNO ID: [id number] Author: CLARISSA OWEN RT(R) Service: Radiology Author Type: Shank Maker Type: Allied Health Filed: 12/25/2024 13:43 Note [...] 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 IMPRESSION: No acute findings. Solid Waste Facility Operator: DEB Transcribe Date/Time: Dec 25 2024 4:48P Dictated by : OVIDIO NELSON MD This examination was interpreted and the report reviewed and electronically signed by: OVIDIO NELSON MD on Dec 25 2024 4:54PM EST [id number] Normal [facility] CT LUMBAR SPINE WO IVCONon 0 12-25-2024 CT LUMBAR SPINE WO IVCON * * *Final Report* * * DATE OF EXAM: Dec 25 2024 1:42PM [facility] 0508 - CT LUMBAR SPINE WO IVCON [...] are 5 lumbar-type vertebrae. Anatomic variant: None. Armhole Raiser Lockstitch (topogram) images: No additional findings. Limitations: Body [...] be communicated with the ordering provider via [email or web address] staff message or phone message by [employer] within 2 business days of report finalization. --END OF FINDING-- Solid Waste Facility Operator: DEB Transcribe Date/Time: Dec 25 2024 2:31P Dictated by : FEMI DAVIDSON MD This examination was interpreted and the report reviewed and electronically signed by: FEMI DAVIDSON MD on Dec 25 2024 2:48PM EST [id number] ACTIONABLE Invalid Interpretation Code [facility] ED NOTEon 12-25-2024 ED NOTE HNO ID: [id number] Author: OVIDIO SCOTT RN Service: ? Author Type: Registered Nurse Type: ED Notes Filed: 12/30/2024 10:46 Note Text: Chart accessed on 12-30-24 for chart audit pi [facility] ED NOTE HNO ID: [id number] Author: TRAVIS KELLY RN Service: ? Author Type: Registered Nurse Type: ED Notes Filed: 12/25/2024 17:41 Note Text: D/c instructions reviewed with pt who verbalized understanding. Pt's vss and left ED in wheelchair with family [facility] ED NOTE HNO ID: [id number] Author: DERRICK LUNA RN Service: ? Author Type: Registered Nurse Type: ED Notes Filed: 12/25/2024 16:20 Note Text: Assisted pt to bathroom. Pt states still in pain. [facility] ED NOTE HNO ID: [id number] Author: TRAVIS KELLY RN Service: ? Author [...] NOTEon 12-25-2024 ED PROV NOTE HNO ID: [id number] Author: ANDERSON BEEBE MD Service: Emergency Medicine [...] Patient is following outpatient pain management in [place] however does not have an appointment for [...] (more content not included)... Normal [facility] Cardiology Visit Reporton Cardiology Visit Report [facility] [address] [place] [address] OFFICE VISIT Date of Service: 05/16/24 MR#: [id number] Acct: [id number] Name: MITCHELL BROOKS Rep #: [id number] : 1975 Provider: Dr. Yung Thapa MD Age/Sex: 49/F Location: [facility] Status: Signed HPI HPI History of Present Illness Details: This patient is here for follow-up visit. According to her, she gets sharp stabbing chest pain whenever she is emotionally upset. This lasts for a second or 2 only. According to her, lately she has been very stressed. Her is in nursing home and her nephew got out of nursing home only today. Occasionally feels lightheaded and dizzy. 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 Normal [facility] ED NOTEon 04-05-2024 ED NOTE HNO ID: [id number] Author: VIKTORIA DAY RN Service: ? Author [...] [facility] ED NOTE HNO ID: [id number] Author: PATRICA ORDOÑEZ RN Service: Emergency Medicine Author Type: Registered Nurse Type: ED Notes Filed: 04/05/2024 20:31 Note Text: Pt up to bathroom, walker used, gait steady, able to get self back to bed afterwards [facility] ED NOTE HNO ID: [id number] Author: PATRICA ORDOÑEZ RN Service: Emergency Medicine Author Type: Registered Nurse Type: ED Notes Filed: 04/05/2024 19:40 Note Text: Patient informed: the name of medication, why we are giving it, possible side effects, what they may expect to feel, and was offered a chance to ask questions, prior to the administration of percocet and gabapentin [facility] ED NOTE HNO ID: [id number] Author: ELTON TEAGUE RN Service: Emergency Medicine Author Type: Registered Nurse Type: ED Notes Filed: 04/05/2024 19:02 Note Text: Report to Patrica FERNÁNDEZ [facility] ED NOTE HNO ID: [id number] Author: ELTON TEAGUE RN Service: Emergency Medicine [...] NOTEon 04-05-2024 ED PROV NOTE HNO ID: [id number] Author: MELODIE BLANCAS MD Service: Emergency Medicine [...] HISTORY 07/20/2013: RAFIA (acute kidney injury) ([facility]) Comment: Baseline Cr 0.58 07/20 Cr 1.6 Possibly 2/2 sepsis (organ damage) as pt received 8L IVFs Making urine appropriately Plan: IVFs No date: Anxiety No date: Asthma No date: Cervical spondylosis No date: Chronic pain No date: Debility No date: HTN (hypertension) No date: Hypothyroid No date: Irritable bowel syndrome No date: Lymphedema No date: Morbid obesity ([facility]) 08/14/2012: Necrotizing fasciitis ([facility]) Comment: thigh wound 07/20/2013: Septic shock ([facility]) Comment: On Dopamine, vasopressine and NE upon [...] (more content not included)... Normal [facility] XR HIP 3V PELV+ AP/LAT RTon [...] lower lumbar spine. No other significant abnormality. Solid Waste Facility Operator: DEB Transcribe Date/Time: Apr 05 2024 8:15P Dictated by : ZAKI BALDERAS MD This examination was interpreted and the report reviewed and electronically signed by: ZAKI BALDERAS MD on Apr 05 2024 8:16PM EST [id number] Normal [facility] XR KNEE 2V AP/LAT LTon 04-05 [...] and tricompartmental osteophytosis. No other significant abnormality. Solid Waste Facility Operator: [facility] Transcribe Date/Time: Apr 05 2024 8:18P Dictated by : ZAKI BALDERAS MD This examination was interpreted and the report reviewed and electronically signed by: ZAKI BALDERAS MD on Apr 05 2024 8:22PM EST [id number] CN Normal [facility] XR KNEE 2V AP/LAT RTon 04-05 [...] and tricompartmental osteophytosis. No other significant abnormality. Solid Waste Facility Operator: [facility] Transcribe Date/Time: Apr 05 2024 8:18P Dictated by : ZAKI BALDERAS MD This examination was interpreted and the report reviewed and electronically signed by: ZAKI BALDERAS MD on Apr 05 2024 8:22PM EST [id number] CN Normal [facility] XR LUMBAR 3V AP/LAT/L5-S1on 04-05-2024 XR [...] facet degenerative changes. No other significant abnormality. Solid Waste Facility Operator: [facility] Transcribe Date/Time: Apr 05 2024 8:26P Dictated by : ZAKI BALDERAS MD This examination was interpreted and the report reviewed and electronically signed by: ZAKI BALDERAS MD on Apr 05 2024 8:26PM EST [id number] CN [facility] 03-25-2024 36 Name of caller: Mitchell Brooks Contact phone number: [phone] Relationship to Patient: patient Provider: Joyce Sierra [...] business hours to return their call: Yes [facility] 36on 10-09-2023 36 Patient is scheduled for an OV in December in [place] with Joyce Sierra [facility] 36 Name of caller: Mitchell Contact phone number: [phone] Relationship to Patient: patient Provider: [facility] Practice: Gastro Chief Complaint/Reason for Call: Pt calling to check status of new patient referral. [facility] should have sent over referral last week. Unable to see referral in patient's chart at time of all. Please advise, thank you. Best time of day caller can be reached: AM Patient advised that office/PCP has 24-48 business hours to return their call: Yes [facility] CNPNon 01-26-2023 CNPN Telephone (HEMAVN) MILLERMITCHELL MENDOZA ([id number]) 1975 F T Date Time Provider Department 01/26/23 NABILA WATSNO During your visit today, we recorded the following information about you: Criss Landers 01/26/2023 3:15 PM Signed This patient was seen by Myke Ross in the ED around . Patient lives out in [place] wanting a referral placed and [facility]ed [facility] to [facility] Fax# [phone] Please call her if there is any [...] Fully Assessed Reason for Visit: Patient Question [2337] Cmt: Referral Prescriptions as of 01/26/2023 - [...] Status:Closed by CRISS LANDERS on 01/26/23 Normal [facility] CNDSon 01-14-2023 CNDS HNO ID: [id number] Author: Herb Chavarria MD Service: Hospital Medicine [...] than carbamazepine to be able to use group home AC in this patient. Plan Metoprolol [...] ADDITIONAL INFORMATION: Follow up with cardiology in [place] over next 3-4 weeks. Psychiatry phone number to call for follow up [phone] over next 2 weeks FOLLOW UP APPOINTMENTS: Future Appointments Date Time Provider Department Center 02/23/2023 3:30 PM Myke Ross MD IFDREJ REJ 03/15/2023 8:20 AM Ganesh Archer MD [facility] ALLERGIES Allergen Reactions Lactose Diarrhea Aleve [Naproxen Sod* Itching itch diffuse Ciprofloxacin Hives Codeine Itching Ibuprofen Rash Morphine Anaphylaxis SOB, throat swelled shut Vicodin [Hydrocodon* Anaphylaxis 06/19/2015 taking percocet without any side effects reported Zanaflex [Tizanidin* Rash DISCHARGE MEDICATION: Current Discharge Medication List START taking these medications apixaban (ELIQUIS) 5 mg Take 5 mg by mouth twice daily. Qty: (more content not included)... [facility] NURSING PROGon 01-14-2023 NURSING PROG HNO ID: [id number] Author: Nury Gonzalez RN Service: Nursing Author Type: Registered Nurse Type: Nursing Progress Note Filed: 01/14/2023 4:33 PM Note Text: Other: Pt left for discharge via wheelchair in stable condition. Pt returned all belongings, wearing bilateral hearing aids. Pt given and explained discharge instructions. All pt questions answered. [facility] Basic metabolic 2000 panelon 01-13-2023 Anion gap [Moles/Vol] 10 mmol/L Normal 9-18 [facility] Comment on above: Order Comment: Speci men Type: BLOOD SPECIMENOrdering Facility: [facility] Address: [address] [place] [address] Performed By: #### 3 016-3, 46669-1 ####[facility]ORATORYCLIA [id number] [facility] [place] [place] [address] [place] Calcium [Mass/Vol] 8.7 mg/dL Normal 8.5-10.2 [facility] Comment on above: Order Comment: Speci men Type: BLOOD SPECIMENOrdering Facility: [facility] Address: [address] [place] [address] Performed By: #### 3 016-3, 16876-5 ####[facility]ORATORYCLIA [id number] [place] [address] [place] Chloride [Moles/Vol] 105 mmol/L Normal 97-105 [facility] Comment on above: Order Comment: Speci men Type: BLOOD SPECIMENOrdering Facility: [facility] Address: [address] [place] [address] Performed By: #### 3 3, ####[facility] [id number] [place] [address] [place] CO2 [Moles/Vol] 27 mmol/L Normal 22-30 [facility] Comment on above: Order Comment: Speci men Type: BLOOD SPECIMENOrdering Facility: [facility] Address: [address] [place] [address] Performed By: #### 3 016-3, ####[facility] LABORATORYIA [id number] [facility] [place] [place] [address] [place] Creatinine [Mass/Vol] 0.59 mg/dL Normal 0.58-0.96 [facility] Comment on above: Order Comment: Speci men Type: BLOOD SPECIMENOrdering Facility: [facility] Address: [address] [place] [address] Performed By: #### 3 016-3, 57306-7 ####[facility] LABORATORYIA [id number] [place] [address] [place] ESTIMATED GLOMERULAR FILTRATION RATE 111 mL/min/1.73m??? Normal >=60 [facility] Comment on above: Order Comment: Elias do Type: BLOOD SPECIMENOrdering Facility: [facility] Address: [place] [id number] Result Comment: Carmen mated Glomerular Filtration Rate [...] actual GFR. Performed By: #### 3 016-3, 25578-4 ####[facility] LABORATORYCLIA [id number] [facility] [place] [address] [place] Glucose [Mass/Vol] 97 mg/dL Normal 74-99 [facility] Comment on above: Order Comment: Eilas do Type: BLOOD SPECIMENOrdering Facility: [facility] Address: [place] [address] Result Comment: The [place] Diabetes Association (ADA) provides guidance for cutoff [...] Standards of Medical Care in Diabetes 2016, [place] [employer] Association. Diabetes Care. 2016.39(Suppl 1). Performed By: #### 3 016-3, 36662-3 ####[facility]ATORYCLIA [id number] [facility] [place] [address] [place] Potassium [Moles/Vol] 3.7 mmol/L Normal 3.7-5.1 [facility] Comment on above: Order Comment: Elias do Type: BLOOD SPECIMENOrdering Facility: [facility] Address: [place] [id number] Performed By: #### 3 016-3, 27292-7 ####[facility]ORATORYCLIA [id number] [facility] [id number] [place] [facility] Sodium [Moles/Vol] 142 mmol/L Normal 136-144 [facility] Comment on above: Order Comment: Speci men Type: BLOOD SPECIMENOrdering Facility: [facility] Address: [address] [address] Performed By: #### 3 016-3, 43759-5 ####[facility]ORATORYIA [id number] [address] [place] Urea nitrogen [Mass/Vol] 7 mg/dL Normal 7-21 [facility] Comment on above: Order Comment: Speci men Type: BLOOD SPECIMENOrdering Facility: [facility] Address: [address] [place] [address] Performed By: #### 3 016-3, 74573-3 ####[facility] [id number] [facility].[address] [place] CBC panel Auto (Bld)on 01-13 Erythrocyte distribution width (RBC) [Ratio] 15.8 % High 11.5-15.0 [facility] Comment on above: Order Comment: Speci men Type: BLOOD SPECIMENOrdering Facility: [facility] Address: [address] [place] [address] Performed By: #### 5 8410-2 ####[facility]ATORYIA [id number] [facility].[address] [place] Hematocrit (Bld) [Volume fraction] 34.0 % Low 36.0-46.0 [facility] Comment on above: Order Comment: Speci men Type: BLOOD SPECIMENOrdering Facility: [facility] Address: [address] [place] [address] Performed By: #### 5 8410-2 ####[facility]ORATORYIA [id number] [facility] [place] [place] [address] [place] Hemoglobin (Bld) [Mass/Vol] 10.4 g/dL Low 11.5-15.5 [facility] Comment on above: Order Comment: Speci men Type: BLOOD SPECIMENOrdering Facility: [facility] Address: [address] [place] [address] Performed By: #### 5 8410-2 ####[facility] [id number] [address] OF [facility] MCH (RBC) [Entitic mass] 27.7 pg Normal 26.0-34.0 [facility] Comment on above: Order Comment: Speci men Type: BLOOD SPECIMENOrdering Facility: [facility] Address: [address] [place] [address] Performed By: #### 5 8410-2 ####[facility] [id number] [address] [place] MCHC (RBC) [Mass/Vol] 30.6 g/dL Normal 30.5-36.0 [facility] Comment on above: Order Comment: Speci men Type: BLOOD SPECIMENOrdering Facility: [facility] Address: [address] [place] [address] Performed By: #### 5 8410-2 ####[facility] [id number] [address] OF [facility] MCV (RBC) [Entitic vol] 90.4 fL Normal 80.0-100.0 [facility] Comment on above: Order Comment: Speci men Type: BLOOD SPECIMENOrdering Facility: [facility] Address: [address] [place] [address] Performed By: #### 5 8410-2 ####[facility] [id number] [address] [place] Nucleated RBC (Bld) [#/Vol] 10*3/uL Normal <0.01 [facility] Comment on above: Order Comment: Speci men Type: BLOOD SPECIMENOrdering Facility: [facility] Address: [address] [place] [address] Performed By: #### 5 8410-2 ####[facility]ATORYIA [id number] [place] [address] [place] Platelet mean volume (Bld) [Entitic vol] 10.6 fL Normal 9.0-12.7 [facility] Comment on above: Order Comment: Speci men Type: BLOOD SPECIMENOrdering Facility: [facility] Address: [address] [place], [place] [address] Performed By: #### 5 8410-2 ####[facility] [id number] [place] [address] [place] Platelets (Bld) [#/Vol] 289 10*3/uL Normal 150-400 [facility] Comment on above: Order Comment: Speci men Type: BLOOD SPECIMENOrdering Facility: [facility] Address: [address] [place], [place] [address] Performed By: #### 5 8410-2 ####[facility] [id number] [place] [address] [place] RBC (Bld) [#/Vol] 3.76 10*6/uL Low 3.90-5.20 [facility] Comment on above: Order Comment: Speci men Type: BLOOD SPECIMENOrdering Facility: [facility] Address: [address] [place], [place] [address] Performed By: #### 5 8410-2 ####[facility] [id number] [place] [id number] [place] WBC (Bld) [#/Vol] 8.61 10*3/uL Normal 3.70-11.00 [facility] Comment on above: Order Comment: Speci men Type: BLOOD SPECIMENOrdering Facility: [facility] Address: [address] [place] [address] Performed By: #### 5 8410-2 ####[facility] [id number] [place] [id number] [facility] [place] CONSULT PROGon 01-13-2023 CONSULT PROG HNO ID: [id number] Author: Gertrudis Frederick APRN.ROTARY ENGINE ASSEMBLER Service: Cardiovascular Medicine Author Type: Nurse Practitioner Type: Consult Progress Note Filed: 01/13/2023 3:34 PM Note Text: [facility] CONSULT PROGRESS NOTE (Template ID [id number]) CONSULTING SERVICE: Cardiology: Consult Team PRIMARY SERVICE: Internal Medicine HOSPITAL DAY: #3 REASON FOR CONSULT: Atrial fibrillation SUBJECTIVE HPI: Ms. Brooks is a 47 year old female from [place], [place] with h/o morbid obesity, necrotizing fascitis [...] mg twice daily. Titrate as needed. - [id number] VASc score is 2. Recomm (more content not included)... Normal [facility] 01-13-2023 Echocardiography Echocardiography Report: Transthoracic Echo [facility] Date of service: 01/13/2023 1:32:30 PM Ordering [...] * * Final * * * CC [employer] Medical Image : [id number]. [id number] [facility] THERAPY NTon 01-13-2023 THERAPY NT HNO ID: [id number] Author: Chapis Forde PT, LATONIA Service: ? Author Type: Physical Therapist Type: Therapy (PT/OT/Speech/Resp) Filed: 01/13/2023 2:52 PM Note Text: PHYSICAL THERAPY MISSED VISIT SERVICE DATE: 01/13/2023 SERVICE TIME: 1451 to 1451 ROOM: [place] [address] Patient not seen due to Another service at bedside. PT will re-attempt at a later date. SIGNATURE: Chapis Forde PT, DPT PATIENT NAME: Mitchell Brooks DATE: January 13, 2023 TIME: 2:52 PM [facility] TSH SerPl-aCncon 01-13-2023 TSH Qn 2.350 m[IU]/L Normal 0.270-4.200 [facility] Comment on above: Order Comment: Speci men Type: BLOOD SPECIMENOrdering Facility: [facility] Address: [address] [place] [phone] Result Comment: If t he patient is , TSH reference range varies by gestational period: First Trimester (weeks 9-12): 0.180-2.990 mIU/L Second Trimester: 0.110-3.980 mIU/L Third Trimester: 0.480-4.710 mIU/L Epi Hopkins et al. A Practical Approach for the Verifications and Determination of Site- and Trimester-Specific Reference Intervals for Thyroid Function tests in . Thyroid, 2019:29:3:412-420. Dao E, et al. 2017 Guidelines of the [place] Thyroid Association for the Diagnosis and Management of Thyroid Disease during and the . Thyroid, 2017:27:3:315-389. Performed By: #### 3 016-3, 38696-7 ####[facility]ATORYCLIA [id number] [place] [address] [place] Basic metabolic 2000 panelon 01-12-2023 Anion gap [Moles/Vol] 9 mmol/L Normal 9-18 [facility] Comment on above: Order Comment: Elias do Type: BLOOD SPECIMENOrdering Facility: [facility] Address: [address] [address] Performed By: #### 1 9123-9, 34681-0 ####[facility] [id number] [place] [address] [place] Calcium [Mass/Vol] 8.8 mg/dL Normal 8.5-10.2 [facility] Comment on above: Order Comment: Elias do Type: BLOOD SPECIMENOrdering Facility: [facility] Address: [address] [address] Performed By: #### 1 9123-9, 77681-1 ####[facility]ORATORYIA [id number] [place] [address] [place] Chloride [Moles/Vol] 106 mmol/L High 97-105 [facility] Comment on above: Order Comment: Elias do Type: BLOOD SPECIMENOrdering Facility: [facility] Address: [address] [address] Performed By: #### 1 9123-9, 07886-4 ####[facility]ATORYIA [id number] [facility] [place] [address] [place] CO2 [Moles/Vol] 26 mmol/L Normal 22-30 [facility] Comment on above: Order Comment: Speci men Type: BLOOD SPECIMENOrdering Facility: [facility] Address: [address] [address] Performed By: #### 1 9123-9, 69458-9 ####[facility]ATORYIA [id number] [place] [id number] [place] Creatinine [Mass/Vol] 0.69 mg/dL Normal 0.58-0.96 [facility] Comment on above: Order Comment: Speci men Type: BLOOD SPECIMENOrdering Facility: [facility] Address: [address] [place] [address] Performed By: #### 1 9123-9, 11475-0 ####[facility] [id number] [address] [place] ESTIMATED GLOMERULAR FILTRATION RATE 107 mL/min/1.73m??? Normal >=60 [facility] Comment on above: Order Comment: Speci men Type: BLOOD SPECIMENOrdering Facility: [facility] Address: [address] [place] [address] Result Comment: Carmen mated Glomerular Filtration Rate [...] actual GFR. Performed By: #### 1 9123-9, 69478-4 ####[facility]ORYIA [id number] [place] [id number] [place] Glucose [Mass/Vol] 107 mg/dL High 74-99 [facility] Comment on above: Order Comment: Speci men Type: BLOOD SPECIMENOrdering Facility: [facility] Address: [address] [place], [place] [address] Result Comment: The [place] Diabetes Association (ADA) provides guidance for cutoff [...] Standards of Medical Care in Diabetes 2016, [place] Diabetes Association. Diabetes Care. 2016.39(Suppl 1). Performed By: #### 1 9123-9, 54946-0 ####[facility]ATORYCLIA [id number] [place] [address] [place] Potassium [Moles/Vol] 4.1 mmol/L Normal 3.7-5.1 [facility] Comment on above: Order Comment: Speci men Type: BLOOD SPECIMENOrdering Facility: [facility] Address: [address] Performed By: #### 1 [address]1239, 86982-9 ####[facility] [id number] [place] [address] [place] Sodium [Moles/Vol] 141 mmol/L Normal 136-144 [facility] Comment on above: Order Comment: Speci men Type: BLOOD SPECIMENOrdering Facility: [facility] Address: [address] Performed By: #### 1 91239, 24475-6 ####[facility]ATORYCLIA [id number] [place] [address] [place] Urea nitrogen [Mass/Vol] 9 mg/dL Normal 7-21 [facility] Comment on above: Order Comment: Speci men Type: BLOOD SPECIMENOrdering Facility: [facility] Address: [address] Performed By: #### 1 91239, 69567-4 ####[facility]ORYIA [id number] [address] [place] CBC panel Auto (Bld)on 01-12 Erythrocyte distribution width (RBC) [Ratio] 15.9 % High 11.5-15.0 [facility] Comment on above: Order Comment: Speci men Type: BLOOD SPECIMENOrdering Facility: [facility] Address: [address] [place] [address] Performed By: #### 5 8410-2 ####[facility]ORYIA [id number] [address] Hematocrit (Bld) [Volume fraction] 33.2 % Low 36.0-46.0 [facility] Comment on above: Order Comment: Speci men Type: BLOOD SPECIMENOrdering Facility: [facility] Address: [address] [place] [address] Performed By: #### 5 8410-2 ####[facility] [id number] [address] [place] Hemoglobin (Bld) [Mass/Vol] 10.3 g/dL Low 11.5-15.5 [facility] Comment on above: Order Comment: Speci men Type: BLOOD SPECIMENOrdering Facility: [facility] Address: [address] [place] [address] Performed By: #### 5 8410-2 ####[facility]ORYIA [id number] [address] MCH (RBC) [Entitic mass] 27.8 pg Normal 26.0-34.0 [facility] Comment on above: Order Comment: Speci men Type: BLOOD SPECIMENOrdering Facility: [facility] Address: [address] [place] [address] Performed By: #### 5 8410-2 ####[facility]ORYIA [id number] [address] [place] MCHC (RBC) [Mass/Vol] 31.0 g/dL Normal 30.5-36.0 [facility] Comment on above: Order Comment: Speci men Type: BLOOD SPECIMENOrdering Facility: [facility] Address: [address] Performed By: #### 5 8410-2 ####[facility] [id number] [place] [address] [place] MCV (RBC) [Entitic vol] 89.7 fL Normal 80.0-100.0 [facility] Comment on above: Order Comment: Speci men Type: BLOOD SPECIMENOrdering Facility: [facility] Address: [address] Performed By: #### 5 8410-2 ####[facility] [id number] [place] [address] [place] Nucleated RBC (Bld) [#/Vol] 10*3/uL Normal <0.01 [facility] Comment on above: Order Comment: Speci men Type: BLOOD SPECIMENOrdering Facility: [facility] Address: [address] Performed By: #### 5 8410-2 ####[facility] [id number] [place] [address] [place] Platelet mean volume (Bld) [Entitic vol] 10.8 fL Normal 9.0-12.7 [facility] Comment on above: Order Comment: Speci men Type: BLOOD SPECIMENOrdering Facility: [facility] Address: [address] Performed By: #### 5 8410-2 ####[facility] [id number] [place] [address] [place] Platelets (Bld) [#/Vol] 271 10*3/uL Normal 150-400 [facility] Comment on above: Order Comment: Speci men Type: BLOOD SPECIMENOrdering Facility: [facility] Address: [address] Performed By: #### 5 8410-2 ####[facility]ORYCLIA [id number] [place] [address] [facility] RBC (Bld) [#/Vol] 3.70 10*6/uL Low 3.90-5.20 [facility] Comment on above: Order Comment: Speci men Type: BLOOD SPECIMENOrdering Facility: [facility] Address: [address] [place] [address] Performed By: #### 5 8410-2 ####[facility]ORYCLIA [id number] [place] [address] [facility] WBC (Bld) [#/Vol] 8.61 10*3/uL Normal 3.70-11.00 [facility] Comment on above: Order Comment: Speci men Type: BLOOD SPECIMENOrdering Facility: [facility] Address: [address] [place] [address] Performed By: #### 5 8410-2 ####[facility] [id number] [place] [id number] [facility]23 CONSULT HNO ID: [id number] Author: Quintin Yusuf MD Service: Cardiovascular Medicine [...] is a 47 year old female from [place], [place] with h/o morbid obesity, necrotizing fascitis [...] Diagnosis Date RAFIA (acute kidney injury) ([facility]) 07/20/2013 Baseline Cr 0.58 07/20 Cr 1.6 Possibly 2/2 sepsis (organ damage) as pt received 8L IVFs Making urine appropriately Plan: IVFs Anxiety Asthma Cervical spondylosis Chronic pain Debility HTN (hypertension) Hypothyroid Irritable bowel syndrome Lymphedema Morbid obesity (HCC) Necrotizing fasciitis ([facility]) 08/14/2012 thigh wound Septic shock ([facility]) 07/20/2013 On Dopamine, vasopressine and NE upon [...] mg tab(s) (more content not included)... Normal [facility] ECG COMPLETEon 01-12-2023 ECG COMPLETE Ventricular Rate : 99 BPM Atrial Rate : 0 BPM P-R Interval : 128 ms QRS Duration : 100 ms Q-T Interval : 366 ms QTC Calculation(Bazett) : 470 ms Calculated R Hecker : 37 degrees Calculated T Hecker : 3 degrees Atrial fibrillation Nonspecific ST and T wave abnormality Confirmed by JOSE M DESAI MD ([id number]) on 01/14/2023 1:03:28 PM NAME : MITCHELL BROOKS PID : [id number] : 1975 Gender : Female Race : ORD : [id number] Procedure Date : Jan 12 2023 14:28:44 Edit Date : Jan 14 2023 13:03:29 Diagnosis: Atrial fibrillation Nonspecific ST and T wave abnormality Confirmed by JOSE M DESAI MD ([id number]) on 01/14/2023 1:03:28 PM Test Reason : Arrhythmia Location : 300 : EKG 506 Overread By : JOSE M DESAI MD Edited By : JOSE M DESAI MD Referred By : ROMÁN CHANDLER Acquired by : Beth ERICKSON [facility] HCG Preg Ur Qlon 01-12-2023 HCG ( test) Ql (U) Negative Normal Negative [facility] Comment on above: Order Comment: Speci men Type: URINE SPECIMENOrdering Facility: [facility] Address: [facility] [place] [address] Result Comment: This test is intended to aid in the early detection of . Very dilute urine samples, as indicated by a low specific gravity, may not contain canvas products sales representative levels of hCG. This [...] for . Performed By: #### 2 106-3 ####[facility] LABORATORYCLIA [id number] [facility] [place] [place] [address] [facility] Magnesium SerPl-mCncon 01-12 Magnesium [Mass/Vol] 2.0 mg/dL Normal 1.7-2.3 [facility] Comment on above: Order Comment: Speci men Type: BLOOD SPECIMENOrdering Facility: [facility] Address: [place] [address] Performed By: #### 1 9123-9, 56711-6 ####[facility] LABORATORYCLIA [id number] [facility] [place] [address] [facility] NURSING PROGon 01-12-2023 NURSING PROG HNO ID: [id number] Author: Donna Harrison RN Service: PICC Team Author Type: Registered Nurse Type: Nursing Progress Note Filed: 01/12/2023 2:41 PM Note Text: PICC/VASCULAR ACCESS PROGRESS NOTE SERVICE DATE: 01/12/2023 SERVICE TIME: 1420 [address] [place] [address] for difficult IV start. #20 angio 2 inch placed in right forearm under ultrasound guidance. Brisk blood return flushed with 10ml of normal saline with no complications. RN aware. SIGNATURE: Donna Harrison RN PATIENT NAME: Mitchell Brooks DATE: January 12, 2023 TIME: 2:38 PM PAGER/CONTACT #: [phone] [facility] THERAPY NT 01-12-2023 THERAPY NT HNO ID: [id number] Author: Chapis Forde, PT, DPT Service: ? 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 Now I have to see the machining engineer and infectious disease before I leave." CURRENT [...] (ADL), Muscle (more content not included)... Normal [facility] Basic metabolic 2000 panelon 01-11-2023 Anion gap [Moles/Vol] 11 mmol/L Normal 9-18 [facility] Comment on above: Order Comment: Speci men Type: BLOOD SPECIMENOrdering Facility: [facility] Address: [address] [place] [address] Performed By: #### 2 4321-2 ####[facility]ORATORYCLIA [id number] [place] [address] [place] Calcium [Mass/Vol] 8.4 mg/dL Low 8.5-10.2 [facility] Comment on above: Order Comment: Speci men Type: BLOOD SPECIMENOrdering Facility: [facility] Address: [address] [place] [address] Performed By: #### 2 4321-2 ####[facility]ORATORYCLIA [id number] [place] [address] [place] Chloride [Moles/Vol] 103 mmol/L Normal 97-105 [facility] Comment on above: Order Comment: Speci men Type: BLOOD SPECIMENOrdering Facility: [facility] Address: [address] [address] Performed By: #### 2 4321-2 ####[facility] LABORATORYCLIA [id number] [place] [address] [place] CO2 [Moles/Vol] 24 mmol/L Normal 22-30 [facility] ital Comment on above: Order Comment: Speci men Type: BLOOD SPECIMENOrdering Facility: [facility] Address: [address] [place] [address] Performed By: #### 2 4321-2 ####[facility]ORATORYCLIA [id number] [address] [place] Creatinine [Mass/Vol] 0.72 mg/dL Normal 0.58-0.96 [facility] Comment on above: Order Comment: Speci men Type: BLOOD SPECIMENOrdering Facility: [facility] Address: [address] [place] [address] Performed By: #### 2 4321-2 ####[facility] LABORATORYIA [id number] [address] [place] ESTIMATED GLOMERULAR FILTRATION RATE 103 mL/min/1.73m??? Normal >=60 [facility] Comment on above: Order Comment: Speci men Type: BLOOD SPECIMENOrdering Facility: [facility] Address: [address] [place] [address] Result Comment: Carmen mated Glomerular Filtration Rate [...] actual GFR. Performed By: #### 2 4321-2 ####[facility]ORATORYCLIA [id number] [place] [address] [place] Glucose [Mass/Vol] 118 mg/dL High 74-99 [facility] Comment on above: Order Comment: Speci men Type: BLOOD SPECIMENOrdering Facility: [facility] Address: [address] [place] [address] Result Comment: The [place] Diabetes Association (ADA) provides guidance for cutoff [...] Standards of Medical Care in Diabetes 2016, [place] [employer]. Diabetes Care. 2016.39(Suppl 1). Performed By: #### 2 4321-2 ####[facility]ORATORYCLIA [id number] [place] [id number] [place] Potassium [Moles/Vol] 3.6 mmol/L Low 3.7-5.1 [facility] Comment on above: Order Comment: Speci men Type: BLOOD SPECIMENOrdering Facility: [facility] Address: [address] [place] [address] Performed By: #### 2 4321-2 ####[facility] LABORATORYIA [id number] [place] [address] [place] Sodium [Moles/Vol] 138 mmol/L Normal 136-144 [facility] Comment on above: Order Comment: Speci men Type: BLOOD SPECIMENOrdering Facility: [facility] Address: [address] [place] [address] Performed By: #### 2 4321-2 ####[facility] [id number] [place] [address] [place] Urea nitrogen [Mass/Vol] 10 mg/dL Normal 7-21 [facility] Comment on above: Order Comment: Speci men Type: BLOOD SPECIMENOrdering Facility: [facility] Address: [address] [place] [address] Performed By: #### 2 4321-2 ####[facility] LABORATORYIA [id number] [address] [place] CBC panel Auto (Bld)on 01-11 Erythrocyte distribution width (RBC) [Ratio] 16.0 % High 11.5-15.0 [facility] Comment on above: Order Comment: Speci men Type: BLOOD SPECIMENOrdering Facility: [facility] Address: [address] [place] [address] Performed By: #### 5 8410-2 ####[facility] [id number] [address] [place] Hematocrit (Bld) [Volume fraction] 32.9 % Low 36.0-46.0 [facility] Comment on above: Order Comment: Speci men Type: BLOOD SPECIMENOrdering Facility: [facility] Address: [address] [place] [address] Performed By: #### 5 8410-2 ####[facility] [id number] [address] [place] Hemoglobin (Bld) [Mass/Vol] 10.2 g/dL Low 11.5-15.5 [facility] Comment on above: Order Comment: Speci men Type: BLOOD SPECIMENOrdering Facility: [facility] Address: [address] [place] [address] Performed By: #### 5 8410-2 ####[facility] [id number] [address] [place] MCH (RBC) [Entitic mass] 28.0 pg Normal 26.0-34.0 [facility] Comment on above: Order Comment: Speci men Type: BLOOD SPECIMENOrdering Facility: [facility] Address: [address] [place] [address] Performed By: #### 5 8410-2 ####[facility] LABORATORYIA [id number] [place] [address] [place] MCHC (RBC) [Mass/Vol] 31.0 g/dL Normal 30.5-36.0 [facility] Comment on above: Order Comment: Speci men Type: BLOOD SPECIMENOrdering Facility: [facility] Address: [address] [place] [address] Performed By: #### 5 8410-2 ####[facility] LABORATORYIA [id number] [place] [address] [place] MCV (RBC) [Entitic vol] 90.4 fL Normal 80.0-100.0 [facility] Comment on above: Order Comment: Speci men Type: BLOOD SPECIMENOrdering Facility: [facility] Address: [address] [place] [address] Performed By: #### 5 8410-2 ####[facility] [id number] [place] [address] [place] Nucleated RBC (Bld) [#/Vol] 10*3/uL Normal <0.01 [facility] Comment on above: Order Comment: Speci men Type: BLOOD SPECIMENOrdering Facility: [facility] Address: [address] [place] [address] Performed By: #### 5 8410-2 ####[facility] [id number] [place] [address] [place] Platelet mean volume (Bld) [Entitic vol] 10.6 fL Normal 9.0-12.7 [facility] Comment on above: Order Comment: Speci men Type: BLOOD SPECIMENOrdering Facility: [facility] Address: [address] [place] [address] Performed By: #### 5 8410-2 ####[facility] [id number] [place] [address] [place] Platelets (Bld) [#/Vol] 263 10*3/uL Normal 150-400 [facility] Comment on above: Order Comment: Speci men Type: BLOOD SPECIMENOrdering Facility: [facility] Address: [facility] [address] Performed By: #### 5 8410-2 ####[facility] LABORATORYIA [id number] [place] [address] [facility] RBC (Bld) [#/Vol] 3.64 10*6/uL Low 3.90-5.20 [facility] Comment on above: Order Comment: Speci men Type: BLOOD SPECIMENOrdering Facility: [facility] Address: [address] [place] [address] Performed By: #### 5 8410-2 ####[facility] [id number] [place] [id number] [facility] WBC (Bld) [#/Vol] 13.19 10*3/uL High 3.70-11.00 [facility] Comment on above: Order Comment: Speci men Type: BLOOD SPECIMENOrdering Facility: [facility] Address: [address] [place] [address] Performed By: #### 5 8410-2 ####[facility] [id number] [address] CONSULT PROGon 01-11-2023 CONSULT PROG HNO ID: [id number] Author: Agustin Clark RPh Service: Pharmacy Author [...] there are questions. Agustin Clark RPh Normal [facility] ECG COMPLETEon 01-11-2023 ECG COMPLETE Ventricular Rate : 143 BPM Atrial Rate : 140 BPM P-R Interval : 176 ms QRS Duration : 77 ms Q-T Interval : 355 ms QTC Calculation(Bazett) : 548 ms Calculated R Hecker : 42 degrees Calculated T Hecker : -67 degrees Atrial fibrillation Confirmed by JOSE M DESAI MD ([id number]) on 01/14/2023 12:51:31 PM NAME : MITCHELL BROOKS PID : [id number] : 1975 Gender : Female Race : ORD : [id number] Procedure Date : Jan 11 2023 14:12:20 Edit Date : Jan 14 2023 12:51:34 Diagnosis: Atrial fibrillation Confirmed by JOSE M DESAI MD ([id number]) on 01/14/2023 12:51:31 PM Test Reason : Arrhythmia Location : 300 : EKG 506 Overread By : JOSE M DESAI MD Edited By : JOSE M DESAI MD Referred By : ROMÁN CHANDLER Acquired by : LANDRY SCOTT [facility] THERAPY NT 01-11-2023 THERAPY NT HNO ID: [id number] Author: Chapis Forde PT, DPT Service: ? Author Type: Physical Therapist Type: Therapy (PT/OT/Speech/Resp) Filed: 01/11/2023 4:13 PM Note Text: Physical Therapy Evaluation SERVICE DATE: 01/11/2023 SERVICE TIME: 1459 to 1540 ROOM: [place] [address] Recommended Discharge Disposition: Home PT Recommended Discharge [...] and mobility-other Interventions Provided: Evaluation, Gait Training (82146), Therapeutic Activity (99888) $ Evaluation-Low (71698) Billed Units: 1 unit Therapeutic Activity (51406) Treatment Minutes: 10 $ Therapeutic Activity (54627) Billed Units: 1 unit Gait Training (68859) Treatment Minutes: 16 $ Gait Training (92000) Billed Units: 1 unit Training AND Education Pro (more content not included)... Normal [facility] Basic metabolic 2000 panelon 01-10-2023 Anion gap [Moles/Vol] 11 mmol/L Normal 9-18 [facility] Comment on above: Order Comment: Speci men Type: BLOOD SPECIMENOrdering Facility: [facility] Address: [address] [address] Performed By: #### 2 4321-2 ####[facility]ORATORYCLIA [id number] [place] [address] [place] Calcium [Mass/Vol] 8.8 mg/dL Normal 8.5-10.2 [facility] Comment on above: Order Comment: Speci men Type: BLOOD SPECIMENOrdering Facility: [facility] Address: [address] [address] Performed By: #### 2 4321-2 ####[facility]ORATORYCLIA [id number] [place] [address] [place] Chloride [Moles/Vol] 101 mmol/L Normal 97-105 [facility] Comment on above: Order Comment: Speci men Type: BLOOD SPECIMENOrdering Facility: [facility] Address: [address] [place] [address] Performed By: #### 2 4321-2 ####[facility]ORATORYCLIA [id number] [place] [address] [place] CO2 [Moles/Vol] 27 mmol/L Normal 22-[address] [facility] Comment on above: Order Comment: Speci men Type: BLOOD SPECIMENOrdering Facility: [facility] Address: [address] [place] [address] Performed By: #### 2 4321-2 ####[facility] [id number] [place] [address] [place] Creatinine [Mass/Vol] 0.67 mg/dL Normal 0.58-0.96 [facility] Comment on above: Order Comment: Speci men Type: BLOOD SPECIMENOrdering Facility: [facility] Address: [address] [place] [address] Performed By: #### 2 4321-2 ####[facility] [id number] [address] [place] ESTIMATED GLOMERULAR FILTRATION RATE 108 mL/min/1.73m??? Normal >=60 [facility] Comment on above: Order Comment: Speci men Type: BLOOD SPECIMENOrdering Facility: [facility] Address: [address] [place] [address] Result Comment: Carmen mated Glomerular Filtration Rate [...] actual GFR. Performed By: #### 2 4321-2 ####[facility] LABORATORYIA [id number] [place] [id number] [place] Glucose [Mass/Vol] 111 mg/dL High 74-99 [facility] Comment on above: Order Comment: Speci men Type: BLOOD SPECIMENOrdering Facility: [facility] Address: [address] [place] [address] Result Comment: The [place] Diabetes Association (ADA) provides guidance for cutoff [...] Standards of Medical Care in Diabetes 2016, [place] [employer]. Diabetes Care. 2016.39(Suppl 1). Performed By: #### 2 4321-2 ####[facility]ORATORYCLIA [id number] [place] [address] [place] Potassium [Moles/Vol] 3.9 mmol/L Normal 3.7-5.1 [facility] Comment on above: Order Comment: Speci men Type: BLOOD SPECIMENOrdering Facility: [facility] Address: [address] [place] [address] Performed By: #### 2 4321-2 ####[facility] [id number] [place] [address] [place] Sodium [Moles/Vol] 139 mmol/L Normal 136-144 [facility] Comment on above: Order Comment: Speci men Type: BLOOD SPECIMENOrdering Facility: [facility] Address: [address] [address] Performed By: #### 2 4321-2 ####[facility]ORATORYCLIA [id number] [place] [address] [place] Urea nitrogen [Mass/Vol] 9 mg/dL Normal 7-21 [facility] Comment on above: Order Comment: Speci men Type: BLOOD SPECIMENOrdering Facility: [facility] Address: [address] [address] Performed By: #### 2 4321-2 ####[facility]ORATORYCLIA [id number] [place] [address] [place] CBC W Auto Differential pane l (Bld)on 01-10-2023 Basophils (Bld) [#/Vol] 0.12 10*3/uL High <0.11 [facility] Comment on above: Order Comment: Speci men Type: BLOOD SPECIMENOrdering Facility: [facility] Address: [address] [place] [address] Performed By: #### 5 7021-8 ####[facility] [id number] [address] [place] Basophils/100 WBC (Bld) 0.4 % Normal [facility] Comment on above: Order Comment: Speci men Type: BLOOD SPECIMENOrdering Facility: [facility] Address: [address] [place] [address] Performed By: #### 5 7021-8 ####[facility] [id number] [address] [place] Differential cell count method Nom (Bld) Auto Normal [facility] Comment on above: Order Comment: Speci men Type: BLOOD SPECIMENOrdering Facility: [facility] Address: [address] [place] [address] Performed By: #### 5 7021-8 ####[facility] [id number] [place] [address] [place] Eosinophils (Bld) [#/Vol] 0.16 10*3/uL Normal <0.46 [facility] Comment on above: Order Comment: Speci men Type: BLOOD SPECIMENOrdering Facility: [facility] Address: [address] [place] [address] Performed By: #### 5 7021-8 ####[facility] [id number] [address] [place] Eosinophils/100 WBC (Bld) 0.5 % Normal [facility] Comment on above: Order Comment: Speci men Type: BLOOD SPECIMENOrdering Facility: [facility] Address: [address] [address] Performed By: #### 5 7021-8 ####[facility] [id number] [place] [address] [place] Erythrocyte distribution width (RBC) [Ratio] 16.1 % High 11.5-15.0 [facility] Comment on above: Order Comment: Speci men Type: BLOOD SPECIMENOrdering Facility: [facility] Address: [address] [address] Performed By: #### 5 7021-8 ####[facility] [id number] [place] [address] [place] Hematocrit (Bld) [Volume fraction] 35.7 % Low 36.0-46.0 [facility] Comment on above: Order Comment: Speci men Type: BLOOD SPECIMENOrdering Facility: [facility] Address: [address] [address] Performed By: #### 5 7021-8 ####[facility] [id number] [place] [address] [place] Hemoglobin (Bld) [Mass/Vol] 11.3 g/dL Low 11.5-15.5 [facility] Comment on above: Order Comment: Speci men Type: BLOOD SPECIMENOrdering Facility: [facility] Address: [address] [address] Performed By: #### 5 7021-8 ####[facility] [id number] [place] [address] [place] Immature granulocytes (Bld) [#/Vol] 0.34 10*3/uL High <0.10 [facility] Comment on above: Order Comment: Speci men Type: BLOOD SPECIMENOrdering Facility: [facility] Address: [address] [address] Performed By: #### 5 7021-8 ####[facility] [id number] [place] [address] [place] Immature granulocytes/100 WBC (Bld) 1.2 % Normal [facility] Comment on above: Order Comment: Speci men Type: BLOOD SPECIMENOrdering Facility: [facility] Address: [address] [address] Performed By: #### 5 7021-8 ####[facility]ORATORYCLIA [id number] [place] [address] [place] Lymphocytes (Bld) [#/Vol] 1.21 10*3/uL Normal 1.00-4.00 [facility] Comment on above: Order Comment: Speci men Type: BLOOD SPECIMENOrdering Facility: [facility] Address: [address] [address] Performed By: #### 5 7021-8 ####[facility]ATORYIA [id number] [address] [place] Lymphocytes/100 WBC (Bld) 4.2 % Normal [facility] Comment on above: Order Comment: Speci men Type: BLOOD SPECIMENOrdering Facility: [facility] Address: [address] [address] Performed By: #### 5 7021-8 ####[facility]ORATORYIA [id number] [address] [place] MCH (RBC) [Entitic mass] 28.2 pg Normal 26.0-34.0 [facility] Comment on above: Order Comment: Speci men Type: BLOOD SPECIMENOrdering Facility: [facility] Address: [address] [address] Performed By: #### 5 7021-8 ####[facility]ATORYIA [id number] [address] [place] MCHC (RBC) [Mass/Vol] 31.7 g/dL Normal 30.5-36.0 [facility] Comment on above: Order Comment: Speci men Type: BLOOD SPECIMENOrdering Facility: [facility] Address: [address] [address] Performed By: #### 5 7021-8 ####[facility] LABORATORYIA [id number] [place] [address] [place] MCV (RBC) [Entitic vol] 89.0 fL Normal 80.0-100.0 [facility] Comment on above: Order Comment: Speci men Type: BLOOD SPECIMENOrdering Facility: [facility] Address: [address] [address] Performed By: #### 5 7021-8 ####[facility] [id number] [place] [address] [place] Monocytes (Bld) [#/Vol] 1.32 10*3/uL High <0.87 [facility] Comment on above: Order Comment: Speci men Type: BLOOD SPECIMENOrdering Facility: [facility] Address: [address] [address] Performed By: #### 5 7021-8 ####[facility] [id number] [address] [place] Monocytes/100 WBC (Bld) 4.5 % Normal [facility] Comment on above: Order Comment: Speci men Type: BLOOD SPECIMENOrdering Facility: [facility] Address: [address] [address] Performed By: #### 5 7021-8 ####[facility] [id number] [place] [address] [place] Neutrophils (Bld) [#/Vol] 25.97 10*3/uL High 1.45-7.50 [facility] Comment on above: Order Comment: Speci men Type: BLOOD SPECIMENOrdering Facility: [facility] Address: [address] [address] Performed By: #### 5 7021-8 ####[facility] [id number] [place] [id number] [place] Neutrophils/100 WBC (Bld) 89.2 % Normal [facility] Comment on above: Order Comment: Speci men Type: BLOOD SPECIMENOrdering Facility: [facility] Address: [address] Performed By: #### 5 7021-8 ####[facility] [id number] [place] [address] [place] Nucleated RBC (Bld) [#/Vol] 0.02 10*3/uL High <0.01 [facility] Comment on above: Order Comment: Speci men Type: BLOOD SPECIMENOrdering Facility: [facility] Address: [address] [address] Performed By: #### 5 7021-8 ####[facility] [id number] [place] [id number] [place] Nucleated RBC/100 WBC (Bld) [Ratio] 0.1 /100 WBC Normal [facility] Comment on above: Order Comment: Speci men Type: BLOOD SPECIMENOrdering Facility: [facility] Address: [address] Performed By: #### 5 7021-8 ####[facility] [id number] [place] [address] [place] Platelet mean volume (Bld) [Entitic vol] 10.7 fL Normal 9.0-12.7 [facility] Comment on above: Order Comment: Speci men Type: BLOOD SPECIMENOrdering Facility: [facility] Address: [address] Performed By: #### 5 7021-8 ####[facility] [id number] [facility] [place] [place] [address] [place] Platelets (Bld) [#/Vol] 309 10*3/uL Normal 150-400 [facility] Comment on above: Order Comment: Speci men Type: BLOOD SPECIMENOrdering Facility: [facility] Address: [address] Performed By: #### 5 7021-8 ####[facility]ATORYIA [id number] [place] [id number] [place] RBC (Bld) [#/Vol] 4.01 10*6/uL Normal 3.90-5.20 [facility] Comment on above: Order Comment: Speci men Type: BLOOD SPECIMENOrdering Facility: [facility] Address: [place] [address] Performed By: #### 5 7021-8 ####[facility] LABORATORYCLIA [id number] [place] [address] [facility] WBC (Bld) [#/Vol] 29.12 10*3/uL High 3.70-11.00 [facility] Comment on above: Order Comment: Speci men Type: BLOOD SPECIMENOrdering Facility: [facility] Address: [place] [address] Performed By: #### 5 7021-8 ####[facility] LABORATORYCLIA [id number] [place] [address] [facility] CONSULTon 01-10-2023 CONSULT HNO ID: [id number] Author: Myke Ross MD Service: Infectious Disease [...] mL (0.083 (more content not included)... Normal [facility] CONSULT PROGon 01-10-2023 CONSULT PROG HNO ID: [id number] Author: Dorothy Steward RPh Service: Pharmacy Author [...] (H) 07/20/2013 0703 22.8 (H) Dorothy Steward [facility] Normal [facility] HISTORY PHYSICALon HISTORY PHYSICAL HNO ID: [id number] Author: Leigh Ann Valerio APRN.CNP Service: Hospital Medicine Author Type: Nurse Practitioner Type: HANDP Filed: 01/10/2023 3:47 AM Note Text: DEPARTMENT OF HOSPITAL MEDICINE HISTORY AND PHYSICAL EXAM SERVICE DATE: 01/10/2023 Code Status: Not on file SERVICE TIME: 3:18 AM Primary Care Physician: No primary care provider on file. NIGHT AND WEEKEND COVERAGE: [place] COVERAGE: Days: [phone], please contact via [email or web address] Nights: [phone] - floor: please page Hospitalist night cover [phone] - 4th floor: please page Hospitalist night cover [phone] - 5th floor: please page Hospitalist night cover [phone] Subjective CHIEF COMPLAINT: chills, generalized weakness HPI: [...] none since. Denies dysuria. On arrival to [facility] T 101.1, HR 127 and p [...] Lymphedema Morbid obesity (HCC) Necrotizing fasciitis ([facility]) 08/14/2012 thigh wound Septic shock ([facility]) 07/20/2013 On Dopamine, vasopressine and NE upon [...] Unknown acetaminophen ( (more content not included)... [facility] NURSING PROGon 01-10-2023 NURSING PROG HNO ID: [id number] Author: Patricia Allemeier, RN Service: Nursing Author [...] in reach. 1635 Pt sister, Marsha Estevez [phone], called asking for update on condition- pt ok'd speaking to her and update provided by RN. [facility] NURSING PROG HNO ID: [id number] Author: Sis Laird RN Service: Nursing Author Type: Registered Nurse Type: Nursing Progress Note Filed: 01/10/2023 8:15 AM Note Text: Transfer Note: Patient transferred into room/unit 506 from outside hospital in stable condition. Actions taken: patient oriented to room, safety precautions. patient instructed on hospital's no smoking policy. nicotine patch offered, patient refused. [facility] XR KNEE 2V AP/LAT RTon 01-10 [...] compartment of the right knee. Marginal osteophytes Solid Waste Facility Operator: PSCB Transcribe Date/Time: Jan 10 2023 4:19P Dictated by : ROSI GARCIA MD This examination was interpreted and the report reviewed and electronically signed by: ROSI GARCIA MD on Jan 10 2023 4:20PM EST [id number] CN [facility] Absolute lymphocyte countOrd ered By: Dr. Watson on 11-08-2022 Lymphocytes Auto (Unsp spec) [#/Vol] 2.52 10*3/uL 0.83-4.51 [facility] Basophil percentageOrdered B y: Dr. Watson on 11-08-2022 Basophils/100 WBC (Bld) 0.8 % 0-1 [facility] Bilirubin [Mass/Vol] 0.30 mg/dL 0.20-1.00 [facility] Comment on above: For patients on eltr ombopag therapy, use of Dimension Kohler TBIL is not recommended. Chloride [Moles/Vol] 103 mmol/L 98-107 [facility] Eosinophils/100 WBC (Bld) 1.8 % 0-5 [facility] Glucose [Mass/Vol] 101 mg/dL 74-106 [facility] Comment on above: Fasting Glucose resu lt from 100 to 125 mg/dL suggests IMPAIRED HOMEOSTASIS per A.D.A. criteria. Neutrophils (Bld) [#/Vol] 5.5 10*3/uL 2.0-7.7 [facility] Neutrophils/100 WBC (Bld) 62.5 % 47-70 [facility] Potassium [Moles/Vol] 4.1 mmol/L 3.5-5.1 [facility] Comment on above: Slight Hemolysis, Re sult may be falsely increased. Protein [Mass/Vol] 7.3 g/dL 6.4-8.2 [facility] Sodium [Moles/Vol] 137 mmol/L 136-145 [facility] WBC (Bld) [#/Vol] 8.8 10*3/uL 4.4-11.0 [facility] Blood erythrocytes count (nu mber/volume)Ordered By: Dr. Watson on 11-08-2022 RBC (Bld) [#/Vol] 4.30 10*6/uL 4.2-5.4 [facility] Blood hemoglobin measurement (mass/volume)Ordered By: Dr. Watson on 11-08-2022 Hemoglobin (Bld) [Mass/Vol] 12.6 g/dL 12.0-15.0 [facility] Blood lymphocytes/100 leukoc ytesOrdered By: Dr. Watson on 11-08-2022 Lymphocytes/100 WBC (Bld) 28.5 % 19-41 [facility] Blood monocytes/100 leukocyt esOrdered By: Dr. Watson on 11-08-2022 Monocytes/100 WBC (Bld) 5.8 % 0-10 [facility] Blood platelet mean volumeOr dered By: Dr. Watson on 11-08-2022 Platelet mean volume (Bld) [Entitic vol] 10.9 fL 6.2-12.0 [facility] Determination of erythrocyte mean corpuscular volume (MCV)Ordered By: Dr. Watson on 11-08-2022 MCV (RBC) [Entitic vol] 95.6 fL 81-99 [facility] Hematocrit Auto (Bld) [Volum e fraction]Ordered By: Dr. Watson on 11-08-2022 Hematocrit (Bld) [Volume fraction] 41.1 % 37-47 [facility] Laboratory - Chemistry and C hemistry - challengeOrdered By: Dr. Watson on 11-08-2022 ALP [Catalytic activity/Vol] 100 U/L 45-117 [facility] ALT [Catalytic activity/Vol] 24 U/L 13-56 [facility] CO2 [Moles/Vol] 27.0 mmol/L 21.0-32.0 [facility] Globulin (S) [Mass/Vol] 4.0 g/dL 2.2-4.2 [facility] Urea nitrogen/Creatinine [Mass ratio] 13.3 mg/mg 10-20 [facility] Laboratory - Hematology and Cell countsOrdered By: Dr. Watson on 11-08-2022 Erythrocyte distribution width (RBC) [Entitic vol] 56.2 fL 35.1-43.9 [facility] Erythrocyte distribution width (RBC) [Ratio] 16.5 % 11.6-14.6 [facility] Immature granulocytes/100 WBC (Bld) 0.600 % 0.0-0.9 [facility] Comment on above: IG% - Immature Granu locytes (promyelocytes, myelocytes and metamyelocytes) > 1% indicates that a LEFT SHIFT is Present. MCH (RBC) [Entitic mass] 29.3 pg 27.0-32.0 [facility] Nucleated RBC/100 WBC (Bld) [Ratio] 0 % 0-5 [facility] Auto (RBC) [Mass/Vol]Or dered By: Dr. Waston on 11-08-2022 MCHC (RBC) [Mass/Vol] 30.7 g/dL 32-36 [facility] No Panel InformationOrdered By: Dr. Watson on 11-08-2022 Estimated GFR (MDRD) Amer 105 mL/min >60 [facility] Comment on above: GFR Calc Estimated GFR (MDRD) Non-Af Amer 87 mL/min >60 [facility] Comment on above: Non- GFR Calc Thyroid Stimulating Hormone (TSH) 1.12 uIU/mL 0.358-3.74 [facility] Platelets bldOrdered By: Dr. Watson on 11-08-2022 Platelets (Bld) [#/Vol] 334 10*3/uL 150-450 [facility] Serum or plasma albumin chema urement (mass/volume)Ordered By: Dr. Watson on 11-08-2022 Albumin [Mass/Vol] 3.3 g/dL 3.2-5.0 [facility] Serum or plasma albumin/glob ulin mass ratioOrdered By: Dr. Watson on 11-08-2022 Albumin/Globulin [Mass ratio] 0.8 {ratio} 0.9-2.4 [facility] Serum or plasma calcium chema urement (mass/volume)Ordered By: Dr. Watson on 11-08-2022 Calcium [Mass/Vol] 9.3 mg/dL 8.5-10.1 [facility] Serum or plasma creatinine m easurement (mass/volume)Ordered By: Dr. Watson on 11-08-2022 Creatinine [Mass/Vol] 0.75 mg/dL 0.55-1.02 [facility] Comment on above: The validity of the calculated GFR & GFRAA in patients over 70 years has not been determined. Clinical correlation is essential. Serum or plasma urea nitroge n measurement (mass/volume)Ordered By: Dr. Watson on 11-08-2022 Urea nitrogen [Mass/Vol] 10 mg/dL 7-18 [facility] Thin prep Papanicolaou smear with manual screeningOrdered By: Dr. Watson on 11-08-2022 Thin prep Papanicolaou smear with manual screening 21 U/L 15-37 [facility] Comment on above: Slight Hemolysis, Re sult may be falsely increased. Thin prep Papanicolaou smear with manual screening 7 5-[address] [facility] [address] BRAIN WO IVCONon 08-19-[address] BRAIN WO IVCON Final Report DATE OF EXAM: Aug 18 2020 10:27PM [facility] 0504 - CT BRAIN WO IVCON / [...] calvarial outer table bony exostosis (reference 4:80). Armhole Raiser Lockstitch (topogram) images: No significant findings. IMPRESSION: No CT evidence of acute intracranial abnormality (within constraints of scan quality). Other: Few minor details above. Solid Waste Facility Operator: PSCB Transcribe Date/Time: Aug 18 2020 10:30P Dictated by : SHELDON MARQUEZ MD This examination was interpreted and the report reviewed and electronically signed by: SHELDON MARQUEZ MD on Aug 18 2020 10:33PM EST Normal [facility] CT CERVICAL SPINE WO IVCONon 08-19-2020 CT CERVICAL SPINE WO IVCON Final Report DATE OF EXAM: Aug 18 2020 10:30PM [facility] 0505 - CT CERVICAL SPINE WO IVCON [...] Counting reference: Craniocervical junction. Anatomic Variants: None. Armhole Raiser Lockstitch (topogram) images: Unremarkable. Alignment: Alignment is anatomic. [...] and moderate bilateral foraminal stenosis at C6-7. Solid Waste Facility Operator: PSCB Transcribe Date/Time: Aug 18 2020 10:38P Dictated by : JOHN HASTINGS MD This examination was interpreted and the report reviewed and electronically signed by: JOHN HASTINGS MD on Aug 18 2020 10:41PM EST Normal [facility] XR KNEE 4V AP/LAT/OBLS LTon 08-19-2020 XR [...] SEVERE IN THE MEDIAL TIBIOFEMORAL JOINT MUÑIZ. Solid Waste Facility Operator: DEB Transcribe Date/Time: Aug 18 2020 11:22P Dictated by : RONNI SHARMA MD This examination was interpreted and the report reviewed and electronically signed by: RONNI SHARMA MD on Aug 18 2020 11:26PM EST Normal [facility] .Auto Diffon 07-11-2018 Ammonia (P) [Mass/Vol] 0.60 10 3/mcL Normal 0.15-1.00 [facility] ([place]) Comment on above: Performed By: #### C ISMALE CARREON ANEU #### [address] [address] Basophils (Bld) [#/Vol] 0.10 10 3/mcL Normal 0.00-0.19 [facility] ([place]) Comment on above: Performed By: #### ISMAEL MCPHERSON ANEU #### [address] [address] Basophils/100 WBC (Bld) 0.7 % Normal 0.0-2.5 [facility] ([place]) Comment on above: Performed By: #### ISMAEL MCPHERSON ANEU #### [address] [address] Eosinophils (Bld) [#/Vol] 0.10 10 3/mcL Normal 0.00-0.40 [facility] ([place]) Comment on above: Performed By: #### C BC, ADIFF, ANEU #### [address] [address] Eosinophils/100 WBC (Bld) 0.6 % Normal 0.0-7.0 [facility] ([place]) Comment on above: Performed By: #### C ISMAEL CARREON, ANEU #### [address] [address] Lymphocytes (Bld) [#/Vol] 1.60 10 3/mcL Normal 0.77-3.85 [facility] ([place]) Comment on above: Performed By: #### C ISMAEL CARREON, ANEU #### [address] [address] Lymphocytes/100 WBC (Bld) 12.7 % Normal 10.0-50.0 [facility] ([place]) Comment on above: Performed By: #### C ISMAEL CARREON, ANEU #### [address] [address] Monocytes/100 WBC (Bld) 4.6 % Normal 1.7-13.0 [facility] ([place]) Comment on above: Performed By: #### ISMAEL MCPHERSON, ANEU #### [address] [address] Neutrophils/100 WBC (Bld) 81.4 % High 37.0-80.0 [facility] ([place]) Comment on above: Performed By: #### ISMAEL MCPHERSON, ANEU #### [address] [address] .GFRon 07-11-2018 GFR 97 ml/min/1.73sqm Normal [facility] ([place]) Comment on above: Result Comment: [...] Performed By: #### G , BMP #### [address] [address] GFR Non- 80 ml/min/1.73sqm Normal [facility] ([place]) Comment on above: Result Comment: GFR Population [...] Performed By: #### G , BMP #### [address] [address] .NEUABSon 07-11-2018 Neutrophils (Bld) [#/Vol] 10.10 10 3/mcL High 2.85-6.16 [facility] ([place]) Comment on above: Performed By: #### ISMAEL MCPHERSON, KLEVER #### [address] [address] .Urinalysis Microscopic (AO) on 07-11-2018 RBC (U) [#/Vol] None Seen Normal None Seen [facility] ([place]) Comment on above: Performed By: #### U A, UAMICAO #### [address] [address] UA Squam Epithelial None Seen Normal None Seen [facility] ([place]) Comment on above: Performed By: #### U A, UAMICAO #### [address] [address] UA WBC None Seen Normal None Seen [facility] ([place]) Comment on above: Performed By: #### Farshad Simmons UAMICAO #### [address] [address] BMPon 07-11-2018 Urea nitrogen [Mass/Vol] 15 mg/dL Normal 7-18 [facility] ([place]) Comment on above: Performed By: #### Stephie FR, BMP #### [address] [address] Urea nitrogen/Creatinine [Mass ratio] 19 ratio Normal 7-27 [facility] ([place]) Comment on above: Performed By: #### Stephie BETANCUR, BMP #### [address] [address] Calcium [Mass/Vol] 8.5 mg/dL Normal 8.4-10.2 [facility] ([place]) Comment on above: Performed By: #### Stephie BETANCUR, BMP #### [address] [address] Chloride [Moles/Vol] 102 mmol/L Normal 98-107 [facility] ([place]) Comment on above: Performed By: #### Stephie BETANCUR, BMP #### [address] [address] CO2 [Moles/Vol] 30 mmol/L High 22-29 [facility] ([place]) Comment on above: Performed By: #### Stephie FR, BMP #### [address] [address] Creatinine [Mass/Vol] 0.78 mg/dL Normal 0.55-1.02 [facility] ([place]) Comment on above: Performed By: #### G FR, BMP #### [address] [address] Electrolyte Balance 8.0 mEq/L Normal [facility] ([place]) Comment on above: Performed By: #### G FR, BMP #### [address] [address] Glucose [Mass/Vol] 117 mg/dL High 70-105 [facility] ([place]) Comment on above: Performed By: #### G FR, BMP #### [address] [address] Potassium [Moles/Vol] 3.4 mmol/L Low 3.5-5.1 [facility] ([place]) Comment on above: Performed By: #### G , BMP #### [address] [address] Sodium [Moles/Vol] 140 mmol/L Normal 136-145 [facility] ([place]) Comment on above: Performed By: #### G , BMP #### [address] [address] CBCon 07-11-2018 Erythrocyte distribution width (RBC) [Ratio] 15.3 % High 11.5-14.5 [facility] ([place]) Comment on above: Performed By: #### C ISMAEL CARREON, KLEVER #### [address] [address] Hematocrit (Bld) [Volume fraction] 41.4 % Normal 37.0-47.0 [facility] ([place]) Comment on above: Performed By: #### ISMAEL MCPHERSON, ANEU #### [address] [address] Hemoglobin (Bld) [Mass/Vol] 13.2 G/dL Normal 12.0-16.0 [facility] ([place]) Comment on above: Performed By: #### ISMAEL MCPHERSON, ANEU #### [address] [address] MCH (RBC) [Entitic mass] 29.5 pg Normal 27.0-31.2 [facility] ([place]) Comment on above: Performed By: #### C ISMAEL CARREON, ANEU #### [address] [address] MCHC (RBC) [Mass/Vol] 32.0 G/dL Low 33.0-37.0 [facility] ([place]) Comment on above: Performed By: #### C BCISMAEL, ANEU #### [address] [address] MCV (RBC) [Entitic vol] 92.1 fL Normal 80.0-94.0 [facility] ([place]) Comment on above: Performed By: #### ISMAEL MCPHERSON ANEU #### [address] [address] Platelet mean volume (Bld) [Entitic vol] 10.0 fL Normal 7.4-10.4 [facility] ([place]) Comment on above: Performed By: #### ISMAEL MCPHERSON, ANEU #### [address] [address] Platelets (Bld) [#/Vol] 291 10 3/mcL Normal 130-400 [facility] ([place]) Comment on above: Performed By: #### C ISMAEL CARREON, ANEU #### [address] [address] RBC (Bld) [#/Vol] 4.49 10 6/mcL Normal 4.20-5.40 [facility] ([place]) Comment on above: Performed By: #### C ISMAEL CARREON, ANEU #### [address] [address] WBC (Bld) [#/Vol] 12.50 10 3/mcL High 4.60-10.80 [facility] ([place]) Comment on above: Performed By: #### ISMAEL MCPHERSON, ANEU #### [address] [address] UAon 07-11-2018 Color (U) Yellow Normal [facility] ([place]) Comment on above: Performed By: #### U A, UAMICAO #### [address] [address] Glucose (U) [Mass/Vol] Negative Normal Negative [facility] ([place]) Comment on above: Performed By: #### U A, UAMICAO #### [address] [address] Ketones Ql (U) Negative Normal Negative [facility] ([place]) Comment on above: Performed By: #### U A, UAMICAO #### [address] [address] UA Appear Clear Normal Clear [facility] ([place]) Comment on above: Performed By: #### U A, UAMICAO #### [address] [address] UA Blood Negative Normal Negative [facility] ([place]) Comment on above: Performed By: #### U A, UAMICAO #### [address] [address] UA Leuk Est Negative Normal Negative [facility] ([place]) Comment on above: Performed By: #### U A, UAMICAO #### [place] [address] UA Nitrite Negative Normal Negative [facility] ([place]) Comment on above: Performed By: #### U A, UAMICAO #### [place] [address] UA pH 6.5 [facility] ([place]) Comment on above: Performed By: #### U A, UAMICAO #### [address] [address] UA Protein Negative Normal Negative [facility] ([place]) Comment on above: Performed By: #### U A, UAMICAO #### [address] [address] UA Spec Grav 1.015 Normal [facility] ([place]) Comment on above: Performed By: #### U A, UAMICAO #### [address] [address] UA Specimen Type Clean Catch [facility] ([place]) Comment on above: Performed By: #### U A, UAMICAO #### [place] [address] UA Urobilinogen 0.2 E.U./dL [facility] ([place]) Comment on above: Performed By: #### U A, UAMICAO #### [place] [address] Urobilinogen Qn (U) Negative Normal Negative [facility] ([place]) Comment on above: Performed By: #### U BC Simmons #### [address] [address] CR Knee 1 or 2 Views Lefton 06-30-2018 CR Knee 1 or 2 Views Left Patient Name: MITCHELL BROOKS Diagnostic Radiology Exam Date/Time 06/29/2018 14:30:00 EST Exam CR Knee 1 or 2 Views Left Ordering Physician LOIS FONTANA Accession Number [id number] CPT4 Codes 22438 () Reason For Exam Other unilateral secondary [...] Transcribed Date and Time: 06/29/2018 11:32 Normal [facility] CR Knee Standing Bilateralon 06-30-2018 CR Knee Standing Bilateral Patient Name: MITCHELL BROOKS Diagnostic Radiology Exam Date/Time 06/29/2018 14:30:00 EST Exam CR Knee Standing AP Bilateral Ordering Physician LOIS FONTANA Accession Number [id number] CPT4 Codes 97119 () Reason For Exam Other unilateral secondary [...] Transcribed Date and Time: 06/29/2018 11:32 Normal [facility] .GFRon 05-09-2018 GFR 103 ml/min/1.73sqm Normal [facility] ([place]) Comment on above: Result Comment: GFR Population [...] Performed By: #### B MP, GFR #### [place] [address] GFR Non- 85 ml/min/1.73sqm Normal [facility] ([place]) Comment on above: Result Comment: GFR Population [...] Performed By: #### B MP, GFR #### [address] [address] BMPon 05-09-2018 Calcium [Mass/Vol] 9.5 mg/dL Normal 8.4-10.2 [facility] ([place]) Comment on above: Performed By: #### B MP, GFR #### [address] [address] Chloride [Moles/Vol] 102 mmol/L Normal 98-107 [facility] ([place]) Comment on above: Performed By: #### B MP, GFR #### [address] [address] CO2 [Moles/Vol] 30 mmol/L High 22-29 [facility] ([place]) Comment on above: Performed By: #### B MP, GFR #### [address] [address] Creatinine [Mass/Vol] 0.74 mg/dL Normal 0.55-1.02 [facility] ([place]) Comment on above: Performed By: #### B MP, GFR #### [address] [address] Electrolyte Balance 9.0 mEq/L Normal [facility] ([place]) Comment on above: Performed By: #### B MP, GFR #### [address] [address] Glucose [Mass/Vol] 94 mg/dL Normal 70-105 [facility] ([place]) Comment on above: Performed By: #### B MP, GFR #### [address] [address] Potassium [Moles/Vol] 4.3 mmol/L Normal 3.5-5.1 [facility] ([place]) Comment on above: Performed By: #### B MP, GFR #### [address] [address] Sodium [Moles/Vol] 141 mmol/L Normal 136-145 [facility] ([place]) Comment on above: Performed By: #### B MP, GFR #### [address] [address] Urea nitrogen [Mass/Vol] 13 mg/dL Normal 7-18 [facility] ([place]) Comment on above: Performed By: #### B MP, GFR #### [address] [address] Urea nitrogen/Creatinine [Mass ratio] 18 ratio Normal 7-27 [facility] ([place]) Comment on above: Performed By: #### B MP, GFR #### [facility] [address] [place] [address] Vital Signs Date Time Vital Sign Value Performing Clinician Facility 04-24-2024 20:29-0400 Blood Pressure Location SCARLETT SEFFENS TECHNICAL OPERATOR-ROTARY ENGINE ASSEMBLER [facility] 04-24-2024 20:29-0400 Blood Pressure Method SCARLETT SEFFENS TECHNICAL OPERATOR-ROTARY ENGINE ASSEMBLER [facility] 04-24-2024 20:29-0400 Body temperature 96.8 [degF] SCARLETT SEFFENS TECHNICAL OPERATOR-ROTARY ENGINE ASSEMBLER [facility] 04-24-2024 20:29-0400 Diastolic Blood Pressure Non-Invasive 64 mm[Hg] SCARLETT SEFFENS TECHNICAL OPERATOR-ROTARY ENGINE ASSEMBLER [facility] 04-24-2024 20:29-0400 Heart rate 70 /min SCARLETT SEFFENS TECHNICAL OPERATOR-ROTARY ENGINE ASSEMBLER [facility] 04-24-2024 20:29-0400 Systolic Blood Pressure Non-Invasive 100 mm[Hg] SCARLETT SEFFENS TECHNICAL OPERATOR-ROTARY ENGINE ASSEMBLER [facility] 09-26-2022 14:12-0500 Body height 157.[address] Nabila Watson Work Phone: [facility] 09-26-2022 14:12-0500 Body mass index (BMI) [Ratio] 60.5 kg/m2 Dr. Nabila Watson Work Phone: [facility] 09-26-2022 14:12-0500 Body weight 150.[address] Nabila Watson Work Phone: [facility] Encounters Encounter Date Encounter Type Care Provider Facility Start: 03-28-2025 ambulatory Annette Samano NP Facili ty:[facility] Start: 02-05-2025 End: 02-05-2025 Follow-up encounter SCARLETT ROSENBERG TECHNICAL OPERATOR-ROTARY ENGINE ASSEMBLER [facility] [place] Start: 01-29-2025 End: 01-29-2025 ambulatory Annette Samano STRUCTURER-C Work Phone: [facility] Work Phone: Start: 01-29-2025 End: 01-29-2025 Patient encounter procedure Annette Samano STRUCTURER-C -[facility] Start: 01-29-2025 End: 01-29-2025 ambulatory Annette Samano NP Facility:[facility] Start: 01-23-2025 End: 01-23-[address] REUBEN LION MD Facility:A Start: 01-23-2025 End: 01-23-[address] REUBEN LION MD [facility] Start: 01-09-2025 End: 01-24-2025 Evaluation and management of inpatient KEATON Wahl JAIMIE TECHNICAL OPERATOR-ROTARY ENGINE ASSEMBLER [facility] Start: 01-02-2025 End: 01-09-2025 Evaluation and management of inpatient DR JAKE COPPOLA DO [facility] Start: 01-01-2025 End: 01-02-2025 Emergency department patient visit DR JAKE COPPOLA DO Facility:[facility] Start: 12-28-2024 End: 12-28-2024 Emergency department patient visit ANNETTE SAMANO Facility:[facility] Start: 12-25-2024 End: 12-25-2024 Emergency department patient visit ANNETTE SAMANO Facility:[facility] Start: 06-24-2024 ambulatory Yung Elier Facility:[facility] Start: 05-16-2024 End: 05-16-2024 ambulatory Yung Elier Facility:[facility] Start: 04-24-2024 End: 04-24-2024 AMB External Visit SCARLETT BAHENAWANDER TECHNICAL OPERATOR-ROTARY ENGINE ASSEMBLER [facility] Start: 04-05-2024 End: 04-05-2024 Emergency department patient visit MELODIE BLANCAS Facility:[facility] Start: 03-25-2024 End: 04-17-2024 Telephone encounter Joyce Sierra TECHNICAL OPERATOR - ROTARY ENGINE ASSEMBLER Work Phone: [facility] Comment on above: Cancelled Appointmen t Start: 02-16-[address] Agustin Carrillo Facility:[id number] Start: 01-26-2023 Telephone encounter Nabila pope MD Work Phone: Hematology Comment on above: Patient Question (Re ferral ) Start: 01-10-2023 End: 01-14-2023 Evaluation and management of inpatient ROMÁN CHANDLER Facility:[facility] Start: 11-08-2022 End: 11-08-[address] Nabila Watson Work Phone: [facility] Work Phone: Start: 11-08-2022 End: 11-08-[address] [facility] Start: 09-26-2022 End: 09-26-[address] Nabila Watson Work Phone: [facility] Start: 07-24-2022 Refill [place] TECHNICAL OPERATOR.ROTARY ENGINE ASSEMBLER Work Phone: [facility] Comment on above: Refill Request Start: 06-24-2022 ambulatory [address] Suggs MA [facility] Comment on above: ED OUTREACH (ED OUTR EACH/) Start: 11-26-2021 End: 11-26-[address] Nabila Watson Work Phone: [facility] Start: 11-26-2021 End: 11-26-[address] Nabila Watson Work Phone: [facility] Start: 06-29-2018 Patient encounter procedure [facility] Procedures Date Procedure Procedure Detail Performing Clinician Start: 01-29-2025 Urnls dip stick/tabl et reagent auto microscopy Annette Samano STRUCTURER-C Work Phone: Start: 01-29-2025 Urine culture Annette lombardi STRUCTURER-C Work Phone: Start: 02-16-2023 Follow-up visit Start: 07-19-2016 Klippel-Feil sequenc e (disorder) SCARLETT ROSENBERG TECHNICAL OPERATOR-ROTARY ENGINE ASSEMBLER Comment on above: C5-C6 Start: 09-04-2014 Mammography Geraldine Klicm an MA Abdominal (qualifier value) SCARLETT ROSENBERG TECHNICAL OPERATOR-ROTARY ENGINE ASSEMBLER Cellulitis (morpholo gic abnormality) SCARLETT ROSENBERG TECHNICAL OPERATOR-ROTARY ENGINE ASSEMBLER Cellulitis (morpholo gic abnormality) DR REUBEN LION MD Comment on above: inner upper thigh- R T side section SCARLETT BARROS TECHNICAL OPERATOR-ROTARY ENGINE ASSEMBLER Comment on above: 1993 and 1995 Epidural injection o f lumbar spine using fluoroscopic guidance SCARLETT ROSENBERG TECHNICAL OPERATOR-ROTARY ENGINE ASSEMBLER Tonsillectomy and adenoidectomy SCARLETT ROSENBERG TECHNICAL OPERATOR-ROTARY ENGINE ASSEMBLER Plan of Treatment Date Care Activity Detail Author Start: 2034 RSV Immunization aged 60 or older (1 - 1-dose 60+ series) RSV Immunization aged 60 or older (1 - 1-dose 60+ series) [facility] Start: 03-29-2028 DTaP/Tdap/Td Vaccines (7 - Td or Tdap) DTaP/Tdap/Td Vaccines (7 - Td or Tdap) [facility] Start: 03-29-2028 Urine microalbumin profile DTAP,TDAP,TD (7 - Td or Tdap) [facility] Start: 01-13-2026 DIABETES SCREEN DIABETES SCREEN [facility] Start: 06-22-2025 DIABETES SCREEN DIABETES SCREEN [facility] Start: 06-22-2025 Urine microalbumin profile DTAP,TDAP,TD (6 - Td or Tdap) [facility] Start: 07-01-2024 End: 07-01-2024 Patient encounter procedure 07/01/2024 11:20 AM EST Office Visit [facility] [address] [place] [address] Joyce Sierra APRN - [address] [id number] [facility] Start: 04-14-2024 COVID-19 Vaccine ( season) COVID-19 Vaccine ( season) [facility] Start: 04-14-2024 Influenza vaccination Influenza Vaccine (#1) [facility] Start: 2024 Zoster Vaccines (1 of 2) Zoster Vaccines (1 of 2) [facility] Start: 08-14-2022 DEPRESSION ASSESSMENT DEPRESSION ASSESSMENT [facility] Start: 04-14-2022 Influenza vaccination INFLUENZA (#1) [facility] Start: 08-14-2021 DEPRESSION ASSESSMENT DEPRESSION ASSESSMENT [facility] Start: 03-02-2020 HPV TESTING HPV TESTING [facility] Start: 03-02-2020 PAP TESTING PAP TESTING [facility] Start: 2019 COLOGUARD (FIT-DNA) COLOGUARD (FIT-DNA) [facility] Start: 2019 COLORECTAL CANCER SCREENING COLORECTAL CANCER SCREENING [facility] Start: [address] COLONOGRAPHY [facility] Start: 2019 FECAL OCCULT BLOOD FECAL OCCULT BLOOD [facility] Start: 2019 LIPID SCREEN LIPID SCREEN [facility] Start: 2019 SIGMOIDOSCOPY SIGMOIDOSCOPY [facility] Start: 05-10-2018 PNEUMOCOCCAL (2 - PCV) PNEUMOCOCCAL (2 - PCV) [facility] Start: 05-10-2018 Pneumococcal Vaccine: Pediatrics (0 to 5 Years) and At-Risk Patients (6 to 64 Years) (2 of 2 - PCV) Pneumococcal Vaccine: Pediatrics (0 to 5 Years) and At-Risk Patients (6 to 64 Years) (2 of 2 - PCV) [facility] Start: 09-04-2015 Mammography MAMMOGRAM [facility] Start: 09-04-2015 PNEUMOCOCCAL (2 - PCV) PNEUMOCOCCAL (2 - PCV) [facility] Start: 2014 Screening for malignant neoplasm of breast Mammogram [facility] Start: 04-19-2013 COLORECTAL CANCER SCREENING COLORECTAL CANCER SCREENING [facility] Start: 2004 Screening for malignant neoplasm of cervix [facility] Start: 2004 Zoledronic acid therapy ALPHA-1 ANTITRYPSIN DEFICIENCY SCREENING [facility] Start: 1995 Screening for malignant neoplasm of cervix Pap Smear [facility] Start: 1993 Hepatitis B Vaccines (1 of 3 - 19+ 3-dose series) Hepatitis B Vaccines (1 of 3 - 19+ 3-dose series) [facility] Start: 1992 ANNUAL PCP TEAM CHRONIC DISEASE VISIT ANNUAL PCP TEAM CHRONIC DISEASE VISIT [facility] Start: 1992 BP CONTROLLED (<130/80) BP CONTROLLED (<130/80) [facility] Start: 1992 Colonoscopy COLONOSCOPY [facility] Start: 1992 Diabetes mellitus screening Diabetes Screening [facility] Start: 1992 HEPATITIS C SCREENING HEPATITIS C SCREENING [facility] Start: 1992 Hepatitis C screening Hepatitis C Screening [facility] Start: 1992 HIV SCREENING HIV SCREENING [facility] Start: 1992 SPIROMETRY SPIROMETRY [facility] Start: 1986 Depression Screening Depression Screening [facility] Start: 1974 COVID-19 VACCINE (#1) COVID-19 VACCINE (#1) [facility] Start: 1974 HEPATITIS B (1 of 3 - 3-dose series) HEPATITIS B (1 of 3 - 3-dose series) [facility] Start: 1974 HIV screening HIV Screening [facility] Start: 1974 Lipid panel Lipid Panel [facility] Start: 1974 Screening for malignant neoplasm of colon [facility] Start: 1974 Thyroid stimulating hormone measurement TSH Level [facility] c [facility] Immunizations Immunization Date Immunization Notes Care Provider Chichi sheriff 06-22-2022 influenza virus vacc ine, unspecified formulation [place] TECHNICAL OPERATOR.ROTARY ENGINE ASSEMBLER Work Phone: [facility] 04-19-2018 influenza virus vacc ine, unspecified formulation SCARLETT SEFFENS TECHNICAL OPERATOR-ROTARY ENGINE ASSEMBLER [facility] 04-19-2018 influenza, injectabl e, quadrivalent, preservative free [place] TECHNICAL OPERATOR.ROTARY ENGINE ASSEMBLER Work Phone: [facility] 03-29-2018 tetanus toxoid, redu anthony diphtheria toxoid, and acellular pertussis vaccine, adsorbed [place] TECHNICAL OPERATOR.ROTARY ENGINE ASSEMBLER Work Phone: [facility] 05-10-2017 influenza virus vacc ine, unspecified formulation SCARLETT SEFFENS TECHNICAL OPERATOR-ROTARY ENGINE ASSEMBLER [facility] 05-10-2017 influenza, injectabl e, quadrivalent, preservative free [place] TECHNICAL OPERATOR.ROTARY ENGINE ASSEMBLER Work Phone: [facility] 05-10-2017 pneumococcal polysaccharide vaccine, 23 valent [place] TECHNICAL OPERATOR.ROTARY ENGINE ASSEMBLER Work Phone: [facility] 06-22-2015 tetanus toxoid, redu anthony diphtheria toxoid, and acellular pertussis vaccine, adsorbed Geraldine Suggs MA [facility] 09-04-2014 influenza virus vacc ine, unspecified formulation SCARLETT SEFFENS TECHNICAL OPERATOR-ROTARY ENGINE ASSEMBLER [facility] 09-04-2014 influenza, seasonal, injectable Geraldine Suggs MA [facility] 09-04-2014 pneumococcal polysaccharide vaccine, 23 valent Geraldine Suggs MA [facility] 06-24-2013 influenza virus vacc ine, unspecified formulation Geraldine Suggs MA [facility] 04-12-1989 mumps virus vaccine Geraldine Suggs MA [facility] 04-12-1986 mumps virus vaccine Geraldine Suggs MA [facility] 11-25-1983 trivalent poliovirus vaccine, live, oral Geraldine Suggs MA [facility] 03-29-1976 diphtheria, tetanus toxoids and acellular pertussis vaccine Geraldine Suggs MA [facility] 03-29-1976 measles, mumps and rubella virus vaccine Geraldine Suggs MA [facility] 03-29-1976 trivalent poliovirus vaccine, live, oral Geraldine Suggs MA [facility] 1974 diphtheria, tetanus toxoids and acellular pertussis vaccine Geraldine Es [facility] 1974 trivalent poliovirus vaccine, live, oral Geraldine Suggs MA [facility] 1974 diphtheria, tetanus toxoids and acellular pertussis vaccine Geraldine Suggs MA [facility] 1974 trivalent poliovirus vaccine, live, oral Geraldine Suggs MA [facility] 1974 diphtheria, tetanus toxoids and acellular pertussis vaccine [facility] Es [facility] 1974 trivalent poliovirus vaccine, live, oral Geraldine Es [facility] Payers Date Payer Category Payer Self-pay [id number] 2024 Unknown [id number] [facility] [id number] 2016 Medicaid [id number] 2016 Unknown [id number] 1974 Unknown [id number] 2.16.8 [id number] 1974 Unknown [id number] 2.16. [id number] 1974 Unknown [id number] 2.16. [id number] 1974 Unknown [id number] 2.16. [id number] 1974 Unknown [id number] 2.16. [id number] 1974 Unknown [id number] 2.16.8 [id number] Unknown Unknown [id number] 2.16.8 [id number] Unknown [id number] 2.16.8 [id number] Unknown [id number] 2.16.8 [id number] Unknown [id number] 2.16.8 [id number] Social History Date Type Detail Facility Start: 11-26-2021 End: 09-26-2022 Tobacco smoking status ORIS Unknown if ever smoked [facility] Start: 07-11-2017 None [facility] Start: 07-11-2017 Spouse/ Signif icant Other [facility] Start: 01-08-2021 Cigarettes [facility] Start: 1975 Sex Assigned At Female C [facility] Start: 06-22-2022 End: 11-23-2023 Tobacco smoking status NHIS Smokes tobacco daily [facility] History of tobacco use Cigarette Smoker C [facility] Start: 06-22-2022 End: 08-02-2022 Cigarettes smoked current (pack per day) - Reported 0.5 [facility] Start: 06-22-2022 Tobacco use and exposure Smokeless tobacco non-user [facility] Start: 06-22-2022 End: 01-10-2023 Alcohol intake Current non-drinker of alcohol (finding) [facility] Start: 06-22-2022 Tobacco Comment down to maybe 6 cigarettes through the day [facility] Start: 06-12-2022 End: 06-22-2022 Exposure to SARS-CoV-2 (event) Not sure [facility] Start: 01-10-2023 History SDOH Financial 4 [facility] Start: 08-02-2022 Alcoholic beverage intake Current drinker of alcohol (finding) [facility] Start: 08-02-2022 Tobacco use panel [facility] Start: 03-28-2024 Tobacco smoking status Heavy t obacco smoker (finding) [facility] Comment on above: Smoking since age 15 Start: 07-23-2024 Tobacco smoking status Light t obacco smoker (finding) [facility] Comment on above: Smoking since age 15 Sexual Orientation Nuzhat Link [employer] Start: 07-09-2019 Sex Female (finding) [facility] Medical Equipment Procedure Code Equipment Code Equipment Origin al Text Equipment Identifier Dates Spacer Avs 4d 7m m Spinal Bone Plug - [id number] Start: 07-18-2016 Plate Aviator Titanium 12x17.4x2.5mm Bone Level 1 Automatic Lock System - [id number] Start: 07-18-2016 Screw Aviator 4m m Titanium 16mm Bone Variable Angle Self Drill Nonsterile - [id number] Start: 07-18-2016 Tube 6mm Cuf Pro x Ext Trchsf - [id number] Start: 08-02-2013 Clinical Notes 05-10-2013 to 02-05-2025 Note Date & Type Note Facility 02-05-2025 Primary care Note Chief Complaint Hospital follow up, spinal stenosis, left foot pain, right leg pain History of Present Illness Mitchell was seen in her home today with her significant other present. Hospital follow-up, was admitted 01/02/2025 to [facility] through the [facility] ER and discharged home from Rehab at [facility] on 01/24/2025. Presented to the ED on [...] to go: Yes. Financial concerns: No. 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 Lives In: Mobile home. Current Home [...] pain management, appointment with Dr. Acevedo at [facility] on March 03. The patient could benefit [...] home health nurse there is a mobile cello teacher in the area. Will see if can get her in with that person. 6. Impaired ambulation Acute on chronic: DME ordered Walker and BSC ordered. Will have nursing fax orders to [facility] in [place]. 7. UTI (urinary tract infection) Acute: continue [...] a day Duration: 10 Days Pickup at [facility] Unchanged acetaminophen (Tylenol) 650 Milligram by [...] prescriber if questions or concerns Pharmacy Information [facility]: [address], [place] [id number] [phone] What How Much When Comments Stop Taking bismuth subsalicylate (Pepto Bismol Liquicaps 262 mg oral capsule) 2 cap by mouth Every 30 minutes not to exceed 8 capsules/ day Stop Taking sulfamethoxazole-trimethoprim (Bactrim DS 800 mg-160 mg oral tablet) 1 tab(s) by mouth Every 12 hours Duration: 5 Days Digitally Signed by SCARLETT ROSENBERG on 02/05/2025 06:03 PM Nuzhat [facility] [place] 01-24-2025 Note Discharge Instructions Thank you for [...] From Your Doctor You were admitted to [facility] transitional care program after a stay at [facility] for ongoing rehab. You have progressed [...] to the ED. Thank you for choosing [facility] transitional care program. We wish you well as you transition home today! Scheduled Follow-Up Appointments Appointment Type When With Where Contact Information StatusNS OV 02/17/2025 02:30 PM EDT LEEANN KING MD Neurosurgery [address] [address] Confirmed GS OV Check Up 04/03/2025 02:00 PM EDT REUBEN LION JR, MD [facility] Confirmed Follow Up Appointments Follow Up with ANNETTE SAMANO APRN-QUETA When:Within 3-5 days Where:[address] [facility] [place] [phone] Additional Information: Please call to schedule your post-hospital follow-up appointment. Follow Up with LEEANN KING MD, Neurosurgery When:02/17/2025 02:30 PM EDT Where:[address] [place] [phone] Additional Information: This is your neurosurgery appointment. [...] spinal stenosis Duration: 7 Days Pickup at [facility] 01/23 @ 10 pm Unchanged acetaminophen [...] a day 01/24@ 9 am Pharmacy Information [facility]: [address], [place] [id number] [phone] Please take this list to your next [...] risk of getting burned. General instructions Take vtpx-hbj-yvzjsik and prescription medicines only as told by [...] 10/20/2004 Document Revised: 07/13/2018 Document Reviewed: 07/05/2017 [employer] Patient Education 2020 [employer]. Weakness Weakness is a lack of strength. [...] about working with a physical therapist or program trainer to help you get stronger. General instructions Take drsu-ccc-wrdsxtb and prescription medicines only as told by [...] 07/13/2009 Document Revised: 03/06/2019 Document Reviewed: 03/06/2019 [employer] Patient Education 2020 [employer]. Additional Information VACCINATE! IT SAVES LIVES! Members of the community who have not yet received the COVID-19 vaccine and would like to receive it can visit one of [facility] vaccine clinics. There are many vaccine clinic locations within the [facility]. For locations and available times, please visit https://gettheshot.coronavirus.[place] .gov/. It is important to note that some COVID mobile vaccine clinics are held outdoors and may be canceled in rainy or stormy conditions. To learn more about pediatric vaccinations (ages 5-11), we invite you to visit the [facility] webpage. [email or web address] [email or web address]-[email or web address] -[email or web address]-Questions.html To learn more about the COVID-19 vaccine, we invite you to visit the CDC website for a list of frequently asked questions.https://www.cdc.gov/coron avirus/2019-ncov/vaccines/faq.html [employer] Patient Portal Access Instructions: Stay connected with your healthcare team and access your personal medical information anytime with the [employer] Patient Portal. Please follow the directions below to create your [employer] account: 1.Access the email account you provided upon registration to the hospital/physician office.2.Look for an invitation email from [facility].3.Open the email and access the invitation link: Accept Invitation to [facility].4.Fill in the required choudhury to create your account. To access your account, visit [email or web address]. Click the blue button labeled "Access Patient [...] you will allow to register on the [facility] Patient Portal for access to your information. You can also access the [facility] Patient Portal on the [facility] kvng. Simply click on "Patient Portal" and then log into your account. If you would like to receive a full copy of your medical records, please contact the [facility] Medical Records Department by calling [phone], Monday through Monday between 8 a.m. and [...] Call your local pharmacy or go to [email or web address] to find one close to you.3.Make use of household items: Use cat litter or old coffee grounds to dispose medications if other options are not available. Mix your drugs with these household products, seal them in an airtight container and throw it into the garbage. Call [facility]: [phone] to be sure your drugs can be [...] Signatures Patient Education Materials Spinal Stenosis Weakness, Gjqx-ct-Hayf Medication Leaflets My discharge plan and instructions have been reviewed and explained to me and I,MITCHELL BROOKS understand my current condition and have read and understand these discharge instructions. I have received a written copy of the plan/instructions. If I have questions, I am aware that I should contact my doctor. Patient/Exercise Equipment Specialist Signature: ____ Date/Time: Relationship to Patient: __ Witness Name/Signature: Date/Time: [facility] 01-23-2025 Hospital Discharge instructions Patient Education [...] risk of getting burned. General instructions Take rmux-qxq-hdwpqgl and prescription medicines only as told by [...] 10/20/2004 Document Revised: 07/13/2018 Document Reviewed: 07/05/2017 [employer] Patient Education 2020 [employer]. 01/23/2025 13:34:24 Weakness, Wgcl-qs-Tosm Weakness Weakness is a lack of strength. [...] about working with a physical therapist or program trainer to help you get stronger. General instructions Take gccf-xew-cbhxrkf and prescription medicines only as told by [...] 07/13/2009 Document Revised: 03/06/2019 Document Reviewed: 03/06/2019 [employer] Patient Education 2020 [employer] Follow Up Care 01/09/2025 09:52:50 With:ANNETTE SAMANO TECHNICAL OPERATOR-ROTARY ENGINE ASSEMBLER Address: [address] [facility] [place] [address]- [phone] When:3-5 days Comments:Please call to schedule your post-hospital follow-up appointment. With:LEEANN KING MD, Neurosurgery Address: [address] [place] [address] [phone] When:02/17/2025 14:30:00 Comments:This is your neurosurgery appointment. Follow-up as scheduled. [facility] 01-21-2025 Note Date of Service 01/21/2025 Chief Complaint Ischemia Subjective 49-year-old female with past medical history significant for HTN, HLD, paroxysmal atrial fibrillation not anticoagulated, COPD, neuropathy, fibromyalgia, bipolar disorder, anxiety, GERD, pulmonary hypertension, IBS, hypothyroidism, morbid obesity, lumbar spinal stenosis, chronic pain following with pain management. Patient originally presented to [facility] 01/01/2025 with acute on chronic back pain that was limiting her mobility. CT lumbar spine at outside hospital done 12/25 that was limited due to body habitus however it did show narrowing of the canal and foramina in the lower lumbar region. MRI of the lumbar spine done at [facility] showing bilateral facet joint cyst L3-L4 resulting in severe canal stenosis. Patient was also noted to have a large midsternal hematoma extending out laterally to both breasts. She denied any trauma. Does take Plavix. CT of the chest with contrast showed large deep right breast/chest wall hematoma. Prominent adjacent induration could be inflammatory or represent contusion. Patient was transferred to [facility] with consults to neurosurgery, hematology, general [...] inpatient rehab. She was subsequently admitted to [facility]. Patient has been progressing well with [...] stenosis Patient underwent epidural injection 01/07/2025 at [facility]. She is due to follow-up with [...] may include grammatical and/or spelling errors. CPT 60848 Time Spent 28 minutes Digitally Signed by WEST SPENCER on 01/21/2025 02:[address] [facility] 01-16-2025 Note Date of Service 01/16/2025 Chief Complaint Asthenia, lumbar spinal stenosis Subjective 49-year-old female with past medical history significant for HTN, HLD, paroxysmal atrial fibrillation not anticoagulated, COPD, neuropathy, fibromyalgia, bipolar disorder, anxiety, GERD, pulmonary hypertension, IBS, hypothyroidism, morbid obesity, lumbar spinal stenosis, chronic pain following with pain management. Patient originally presented to [facility] 01/01/2025 with acute on chronic back pain that was limiting her mobility. CT lumbar spine at outside hospital done 12/25 that was limited due to body habitus however it did show narrowing of the canal and foramina in the lower lumbar region. MRI of the lumbar spine done at [facility] showing bilateral facet joint cyst L3-L4 resulting in severe canal stenosis. Patient was also noted to have a large midsternal hematoma extending out laterally to both breasts. She denied any trauma. Does take Plavix. CT of the chest with contrast showed large deep right breast/chest wall hematoma. Prominent adjacent induration could be inflammatory or represent contusion. Patient was transferred to [facility] with consults to neurosurgery, hematology, general [...] inpatient rehab. She was subsequently admitted to [facility]CU. Patient has been progressing well with [...] stenosis Patient underwent epidural injection 01/07/2025 at [facility]. She is due to follow-up with [...] may include grammatical and/or spelling errors. CPT 65204 Time Spent 30 minutes Digitally Signed by WEST SPENCER on 01/16/2025 12:[address] [facility] 01-16-2025 Note . MICRO - Microbiology [...] Locations *1: This test was performed at: [facility], [address] [place] [address], [address] , [facility] 01-15-2025 Pastoral care Progress note Pastoral Care Note Entered On: 01/15/2025 8:59 EDT Performed On: 01/15/2025 8:55 EDT by Mauro Lara [facility] Type of Pastoral Visit : [...] is having her breakfast but welcomes this facing machine operator to sit with her; pt talks about [...] by Mauro Lara on 01/15/2025 08:[address] [facility] 01-12-2025 Note Date of Service 01/12/2025 [...] up in bed. Patient advised to notify STRUCTURER if they are warm to touch and [...] placed to PT and OT - following. field ironworker following for discharge planning. Insurance update due 01/20. 2. Bipolar disorder Chronic. Continue current home medications. Decreased Seroquel to 50 mg PO qhs due to patient request as she is groggy and not being able to make it [place] [facility]. Ordered: 3. Chronic obstructive pulmonary disease (COPD) [...] collaborating with physician, and documenting in chart. CPT#79050 Digitally Signed by KEATON ETIENNE on 01/12/2025 09:[address] [facility] 01-10-2025 Evaluation + Plan note Extrac grabiel from: Title:History and Physical Author:KEATON ETIENNE APRN-ROTARY ENGINE ASSEMBLER Date:01/10/25 1. Asthenia Consult placed to PT and OT. field ironworker following for discharge planning. 2. Bipolar disorder [...] with physician, and documenting in chart. CPT# 62528 Future Appointments Appointment Date:02/17/2025 02:30:00 PM Scheduled Provider:LEEANN KING MD Location:NEUROS Appointment Type:NS OV Appointment Date:04/03/2025 02:00:00 PM Scheduled Provider:REUBEN LION JR, MD Location:Gen Surg CAN Appointment Type: OV Check Up Future Scheduled Tests Laboratory* Thyroid Stimulating Hormone 06/23/24 * Complete Blood Count 06/23/24 * Lipid Profile 06/23/24 * Complete Metabolic Panel 06/23/24 [facility] 05-30-2025 Note Date of Service 01/10/2025 Chief Complaint weakness History of Present Illness Patient is a 49-year-old female, who follows with Annette Samano CNP with a past medical history significant for COPD, hypertension, dyslipidemia, atrial fibrillation, IBS, and morbid obesity, presented to [facility] swing program for ongoing rehab after a hospital stay at [facility]. Patient was initially admitted to [facility] on 01/01/2025 due to severe low back pain radiating down both legs. An MRI of the lumbar spine showed bilateral facet joint cyst L3-V0sggmquhvd in severe canal stenosis. She was transferred to [facility] for neurosurgery evaluation. Neurosurgery evaluated patient [...] Patient was medically optimized and transferred to [facility] yesterday. Patient seen and evaluated [...] Asthenia Consult placed to PT and OT. field ironworker following for discharge planning. 2. Bipolar disorder [...] with physician, and documenting in chart. CPT# 86931 Problem List/Past Medical History Ongoing Angina at [...] Constant Order Digitally Signed by KEATON ETIENNE APRN-ROTARY ENGINE ASSEMBLER on 01/10/2025 01:15 PM Digitally Signed by JUSTIN TIJERINA MD FACP on 01/14/2025 09:[address] [facility]05-29-2025 NoteORIGINAL PROCEDURE: Lumbar Epidural Injection with Fluoroscopic Guidance CLINICAL STATEMENT: Low back pain NURSING TECH: Chapis Soto PA-C ANESTHESIA: Local NEEDLE: 22 [...] Sign Date: 01/09/2025 6:22:05 PM Ordering Provider: [facility] Hospital Discharge instructions Patient Education 01/09/2025 12:50:18 [...] risk of getting burned. General instructions Take rril-dsn-tmpducw and prescription medicines only as told by [...] 10/20/2004 Document Revised: 07/13/2018 Document Reviewed: 07/05/2017 [employer] Patient Education 2020 [employer]. Follow Up Care 01/02/2025 15:32:45 With:LEEANN KING Neurosurgery Address: [address] [place] [address]- [phone] Business (1) When: Unknown Comments:Call for appointment With:ANNETTE SAMANO Address: [address] [place] [address]- [phone] Business (1) When: only if needed With:[facility] Bed [phone] Address: When: Unknown Comments:Room 232 With:REUBEN LION JR, MD, Surgery Address: [address] [facility] [facility] [address] [place] [address] [phone] When:01/23/2025 13:15:00 Comments:For follow up of breast/chest hematoma [facility] 05-29-2025 Note Discharge Instructions Thank you for allowing [facility] to assist you with your healthcare needs. The following is importantdischarge information regarding your hospital visit. Your Care Team ANNETTE SAMANO TECHNICAL OPERATOR-ROTARY ENGINE ASSEMBLER Your Diagnosis Allergic rhinitis Arthritis of both knees Back pain Bipolar disorder Breast mass Chronic obstructive pulmonary disease (COPD) Essential hypertension Fibromyalgia GERD (gastroesophageal reflux disease) History of atrial fibrillation Lumbar stenosis What to do next Scheduled Follow-Up Appointments Appointment Type When With Where Contact Information StatusGS Hospital Follow Up 01/23/2025 01:15 PM EDT REUBEN LION JR, MD [facility] Confirmed Follow Up Appointments Follow Up with Benjamin MORALES Where:[address] [place] [address]- [phone] Business (1) Additional Information: Call for appointment Follow Up with ANNETTE SAMANO When:Only if needed Where:[address] [place] [address] [phone] Business (1) Follow Up with [facility] [phone] Additional Information: Room 232 Follow Up with REUBEN LION JR, MD, Surgery When:01/23/2025 01:15 PM EDT Where:[address] [facility] [address] [facility] [address] [place] [address]- [phone] Additional Information: For follow up of breast/chest [...] risk of getting burned. General instructions Take bszn-guh-kuvufzb and prescription medicines only as told by [...] 10/20/2004 Document Revised: 07/13/2018 Document Reviewed: 07/05/2017 [employer] Patient Education 2020 [employer] Additional Information VACCINATE! IT SAVES LIVES! Members of the community who have not yet received the COVID-19 vaccine and would like to receive it can visit one of [facility] vaccine clinics. There are many vaccine clinic locations within the [facility]. For locations and available times, please visit https://gettheshot.coronavirus.[place].gov/. It is important to note that some COVID mobile vaccine clinics are held outdoors and may be canceled in rainy or stormy conditions. To learn more about pediatric vaccinations (ages 5-11), we invite you to visit the [facility] webpage. https://www.[facility].org/pages/1427-Tqdor-Yllexorthsq-Fadwqtdlrw-Pgivx-Rrr stions.htmlTo learn more about the COVID-19 vaccine, we invite you to visit the CDC website for a list of frequently asked questions.https://www.cdc.gov/coronavirus/2019-ncov/vaccines/faq.html [facility] Patient Portal Access Instructions: Stay connected with your healthcare team and access your personal medical information anytime with the [employer] Patient Portal. Please follow the directions below to create your [employer] account: 1.Access the email account you provided upon registration to the hospital/physician office.2.Look for an invitation email from [facility].3.Open the email and access the invitation link: AcceptInvitation to [employer].4.Fill in the required choudhury to create your account. To access your account, visit [email or web address]. Click the blue button labeled "Access Patient Portal" and then log in with the username and password that you created in the steps above. You will be able to view your test results, lab results, a summary of your visits, upcoming appointments and more. There is also a convenient messaging option where you can send secure messages to your [employer]. In addition, you will have the ability to download any documents or summaries to your computer and/or send the information securely to a physician. Remember that your healthcare information is confidential, so carefully consider who you will allowto register on the [employer] Patient Portal for access to your information. You can also access the [facility] Hu[employer]comChart Patient Portal on the [facility] kvng. Simply click on "Patient Portal" and then log into your account. If you would like to receive a full copy of your medical records, please contact the [facility] Medical Records Department by calling [phone], Monday through Monday between 8 a.m. and [...] Call your local pharmacy or go to http://bit.[employer]/0M8Uj3j to find one close to you.3.Make use of household items: Use cat litter or old coffee grounds to dispose medications if other options arenot available. Mix your drugs with these household products, seal them in an airtight container andthrow it into the garbage. Call [facility]: [phone] to be sure your drugs can be [...] aware that I should contact my doctor. Patient/Exercise Equipment Specialist Signature: Date/Time: Relationship to Patient: Witness Name/Signature: Date/Time: [facility] HospitalOfpiuayr02-36-7427 Note Discharge Instructions Thank you for allowing [facility] to assist you with your healthcare needs. The following is importantdischarge information regarding your hospital visit. Your Care Team ANNETTE SAMANO TECHNICAL OPERATOR-ROTARY ENGINE ASSEMBLER Your Diagnosis Allergic rhinitis Arthritis of both knees Back pain Bipolar disorder Breast mass Chronic obstructive pulmonary disease (COPD) Essential hypertension Fibromyalgia GERD (gastroesophageal reflux disease) History of atrial fibrillation Lumbar stenosis What to do next Scheduled Follow-Up Appointments Appointment Type When With Where Contact Information Status[facility] Hospital Follow Up 01/23/2025 01:15 PM EDT REUBEN LION JR, MD [facility] Surgery Confirmed Follow Up Appointments Follow Up with LEEANN KING, Neurosurgery Where:[address] [facility] [address] [phone] Business (1) Additional Information: Call for appointment Follow Up with ANNETTE SAMANO When:Only if needed Where:[address] [facility] [place] [address] [phone] Business (1) Follow Up with [facility] Swing Bed [phone] Additional Information: Room 232 Follow Up with REUBEN LION JR, MD, Surgery When:01/23/2025 01:15 PM EDT Where:[address] [place] [address]- [phone] Additional Information: For follow up of breast/chest [...] risk of getting burned. General instructions Take exmq-cza-zouirkd and prescription medicines only as told by [...] 10/20/2004 Document Revised: 07/13/2018 Document Reviewed: 07/05/2017 [employer] Patient Education 2020 [employer] Additional Information VACCINATE! IT SAVES LIVES! Members of the community who have not yet received the COVID-19 vaccine and would like to receive it can visit one of [facility] vaccine clinics. There are many vaccine clinic locations within the [facility]. For locations and available times, please visit https://gettheshot.coronavirus.[place].gov/. It is important to note that some COVID mobile vaccine clinics are held outdoors and may be canceled in rainy or stormy conditions. To learn more about pediatric vaccinations (ages 5-11), we invite you to visit the [facility] webpage. https://www.[facility].org/pages/5701-Aspud-Hfxfqzvogem-Yteukgwbkd-Tkjun-Oyy stions.htmlTo learn more about the COVID-19 vaccine, we invite you to visit the CDC website for a list of frequently asked questions.https://www.cdc.gov/coronavirus/2019-ncov/vaccines/faq.html [employer] Patient Portal Access Instructions: Stay connected with your healthcare team and access your personal medical information anytime with the [employer] Patient Portal. Please follow the directions below to create your [employer] account: 1.Access the email account you provided upon registration to the hospital/physician office.2.Look for an invitation email from [facility].3.Open the email and access the invitation link: AcceptInvitation to [employer].4.Fill in the required choudhury to create your account. To access your account, visit [email or web address]. Click the blue button labeled "Access Patient [...] who you will allowto register on the [facility] [employer]Chart Patient Portal for access to your information. You can also access the [facility] Patient Portal on the [facility] kvng. Simply click on "Patient Portal" and then log into your account. If you would like to receive a full copy of your medical records, please contact the [facility] Medical Records Department by calling [phone], Monday through Monday between 8 a.m. and [...] Call your local pharmacy or go to http://Chirpify.[employer]/5I2Ru2h to find one close to you.3.Make use of household items: Use cat litter or old coffee grounds to dispose medications if other options arenot available. Mix your drugs with these household products, seal them in an airtight container andthrow it into the garbage. Call [facility]: [phone] to be sure your drugs can be [...] aware that I should contact my doctor. Patient/Exercise Equipment Specialist Signature: Date/Time: Relationship to Patient: Witness Name/Signature: Date/Time: [facility] HospitalPugqggsr07-23-8439 Discharge summary Date of Service 01/09/2025 Discharge [...] tobacco abuse, morbid obesity. Patient presented to [facility] as a transfer from [facility] on 01/02/2025 for management of her severe lumbar stenosis. She initially presented to [facility] on 01/01/2025 with low back pain radiating down her legs. She underwent an MRI of the lumbar spine that showed bilateral facet joint cystL3-L4 resulting in severe canal stenosis. She transferred to [facility] for neurosurgery evaluation. Neurosurgery evaluated the [...] discussed with Dr. Tijerina. Collaborative Care Team [facility] Medicine Shared/split visit with Mar MARTINEZ. Patient seen and examined independently. Care discussed and coordinated by the entire care team under my direction. Patient doing well here today. Plan is therapy over at [facility], for which she is medically optimized. DC to [facility] TCU. DC time 36 minutes justin tijerina md [facility] Medicine Allergies Vicodin Zanaflex ciprofloxacin codeine cyproheptadine [...] Patient Instructions He will be discharged to [facility] for continued physical and Occupational Therapy Return to the ER for any new or worsening symptoms Medications New Prescription acetaminophen-hydrocodone ([place] 325- 5 mg oral tablet)1 tab(s) by [...] Follow Up with LEEANN KING, Neurosurgery Where:[address] [facility] [place] [address]- [phone] Business (1) Additional Information: Call for appointment Follow Up with ANNETTE SAMANO When:Only if needed Where:[address] [facility] [place] [address] [phone] Business (1) Follow Up with [facility] Bed [phone] Additional Information: Room 232 Follow Up with REUBEN LION JR, MD, Surgery When:01/23/2025 01:15 PM EDT Where:[address] [facility] [address] [facility] [place] [address]- [phone] Additional Information: For follow up of breast/chest [...] TIJERINA MD FACP on 01/09/2025 06:52 PM [facility] [id number] Note* Exam Date Time Procedure Performing Provider Status 01/09/25 10:18 AM IR Epidural Injection WILLIAM HOBBS MD ; Auth (Verified) [id number] ORIGINAL PROCEDURE: Lumbar Epidural Injection with Fluoroscopic Guidance CLINICAL STATEMENT: Low back pain NURSING TECH: Chapis Soto PA-C ANESTHESIA: Local NEEDLE: 22 [...] 01/09/2025 6:22:05 PM Ordering Provider: JUAN ENRIQUE [facility] [id number] Note IR Procedure Record Summary Primary Physician: CHAPIS SOTO PA-C Finalized Date/Time: 01/09/25 09:04:32 Pt. Name: MITCHELL BROOKS/Sex: 1975 Female Med Rec #: [id number] Physician: JAKE COPPOLA DO Financial #: [id number] Pt. Type: I Room/Bed: [facility]/A Admit/Disch: 01/02/25 23:07:00 - Institution: Allergies identified [...] Attendee CHAPIS SOTO Megan R Rad Allen Youth Nutritional MonitorGenie Conner PA-C Tech Role Performed Primary Surgeon [...] 1 mL Medication CONTRAST ISOVUE 300/30ML 10/CA 288607 Radiology Flouroscopy Fluoroscopy Used? Yes Fluoro Dose [...] Charlie SALAS Megan R Relevant images and Youth Nutritional Monitor, Noah, Rad results are properly Tech Tre Conner RN labeled and Matt appropriately displayed, Alcohol based prep dry, Double verification of sterility indicators complete Instrument Sterility Team Members CHAPIS SOTO Verifying Sterility AJCCharlie Megan R Youth Nutritional Monitor Procedure IR Epidural Injection (SN) Last Modified By: PRAEDEP [facility] 01/09/25 08:40:04 Skin Prep- IR Entry 1 Procedure IR Epidural Injection (SN) Skin Prep Prep Area Back Side Bilateral, Lower By Cheyenne Guerra Rad Prep Agents Betadine Project Economist Hair Removal Method N/A Last Modified By: [...] Radiology - Action Plan Outcomes Met? Yes Chick Grader PRADEEP [facility] Completing Procedure Plan Last Modified By: PRADEEP [facility] 01/09/25 08:38:54 Case Comments Finalized By: PRADEEP [facility] Document Signatures Signed By: PRADEEP [facility] 01/09/25 09:04 [facility] [id number] Note Date of Service 01/08/25 Chief Complaint back pain Subjective 49-year-old female with past medical history of hypertension, hyperlipidemia, fibromyalgia, paroxysmal atrial fibrillation on Plavix as she is unable to tolerate aspirin or anticoagulation secondary to gastric ulcer, COPD, neuropathy, bipolar disorder, tobacco abuse, morbid obesity. Patient presented to [facility] as a transfer from [facility] on 01/02/2025 for management of her severe lumbar stenosis. She initially presented to [facility] on 01/01/2025 with low back pain radiating down her legs. She underwent an MRI of the lumbar spine that showed bilateral facet joint cystL3-L4 resulting in severe canal stenosis. She transferred to [facility] for neurosurgery evaluation. Neurosurgery evaluated the [...] PT/OT recommending inpatient rehab, referral sent to [facility] T[facility]. Patient seen today. She complains [...] PT/OT recommending inpatient rehab, pre-CERT pending for [facility] Level of Care Indication Regular Floor DVT Prophylaxis Enoxaparin SQ Maintenance IVF Indication NA / No maintenance IVF Indwelling Urinary Catheter Indication NA No indwelling catheter Anticipated Timeline of Discharge 24 hours Anticipated DC Disposition SNF Plan discussed with patient Case discussed with Dr. Coppola Digitally Signed by FAYE IRVING on 01/08/2025 12:41 PM [facility] [id number] Interventional radiology Progress note Due to IR schedule availability will reassess for injection 5-29-25. Floor made aware. Digitally Signed by Nabila More RN on 01/08/2025 03:46 PM [facility] [id number] Interventional radiology Progress note Due to IR schedule availability will reassess for injection 5-29-25. Floor made aware. Digitally Signed by Nabila More RN on 01/08/2025 03:46 PM [facility] [id number] Nurse Progress note this nurse reviewed and agrees with [facility] Student Nurse, Edilma Miller's charting and medication administration. Digitally Signed by Clarence Paniagua RN on 01/08/2025 03:01 PM [facility] [id number] Note Date of Service 01/08/25 Chief Complaint back pain Subjective 49-year-old female with past medical history of hypertension, hyperlipidemia, fibromyalgia, paroxysmal atrial fibrillation on Plavix as she is unable to tolerate aspirin or anticoagulation secondary to gastric ulcer, COPD, neuropathy, bipolar disorder, tobacco abuse, morbid obesity. Patient presented to [facility] as a transfer from [facility] on 01/02/2025 for management of her severe lumbar stenosis. She initially presented to [facility] on 01/01/2025 with low back pain radiating down her legs. She underwent an MRI of the lumbar spine that showed bilateral facet joint cystL3-L4 resulting in severe canal stenosis. She transferred to [facility] for neurosurgery evaluation. Neurosurgery evaluated the [...] PT/OT recommending inpatient rehab, referral sent to [facility]. Patient seen today. She complains [...] PT/OT recommending inpatient rehab, pre-CERT pending for [facility] Level of Care Indication Regular Floor DVT Prophylaxis Enoxaparin SQ Maintenance IVF Indication NA / No maintenance IVF Indwelling Urinary Catheter Indication NA No indwelling catheter Anticipated Timeline of Discharge 24 hours Anticipated DC Disposition SNF Plan discussed with patient Case discussed with Dr. Coppola Digitally Signed by FAYE IRVING on 01/08/2025 12:41 PM [id number] Nurse Progress note This nurse reviewed and agrees with [place] Student Nurse, Edilma Miller charting and medication administration. Digitally Signed by Clarence Paniagua RN on 01/08/2025 05:52 AM [id number] Interventional radiology Progress note Spoke with PRADEEP Castelan regarding order for Epidural. She was informed that IR is unable to do procedure today due to patient having lovenox yesterday. PRADEEP Castelan advised to get an order from ordering doctor to hold lovenox, and IR will plan procedure for tomorrow pending schedule availability. Digitally Signed by Sarah Huerta RN on 01/07/2025 02:09 PM [id number] Note Date of Service 01/07/25 Chief Complaint back pain Subjective 49-year-old female with past medical history of hypertension, hyperlipidemia, fibromyalgia, paroxysmal atrial fibrillation on Plavix as she is unable to tolerate aspirin or anticoagulation secondary to gastric ulcer, COPD, neuropathy, bipolar disorder, tobacco abuse, morbid obesity. Patient presented to [facility] as a transfer from [facility] on 01/02/2025 for management of her severe lumbar stenosis. She initially presented to [facility] on 01/01/2025 with low back pain radiating down her legs. She underwent an MRI of the lumbar spine that showed bilateral facet joint cystL3-L4 resulting in severe canal stenosis. She transferred to [facility] for neurosurgery evaluation. Neurosurgery evaluated the [...] PT/OT recommending inpatient rehab, referral sent to [facility]. Patient seen today. She states [...] PT/OT recommending inpatient rehab, pre-CERT pending for [facility] Level of Care Indication Regular Floor DVT Prophylaxis Enoxaparin SQ Maintenance IVF Indication NA / No maintenance IVF Indwelling Urinary Catheter Indication NA No indwelling catheter Anticipated Timeline of Discharge 24 hours Anticipated DC Disposition SNF Plan discussed with patient Case discussed with Dr. Coppola Digitally Signed by FAYE IRVING on 01/07/2025 11:49 AM [id number] Note Date of Service 01/06/25 Chief Complaint Acute on chronic back pain Subjective 49-year-old female with past medical history of hypertension, hyperlipidemia, fibromyalgia, paroxysmal atrial fibrillation on Plavix as she is unable to tolerate aspirin or anticoagulation secondary to gastric ulcer, COPD, neuropathy, bipolar disorder, tobacco abuse, morbid obesity. Patient presented to [facility] as a transfer from [facility] on 01/02/2025 for management of her severe lumbar stenosis. She initially presented to [facility] on 01/01/2025 with low back pain radiating down her legs. She underwent an MRI of the lumbar spine that showed bilateral facet joint cystL3-L4 resulting in severe canal stenosis. She transferred to [facility] for neurosurgery evaluation. Neurosurgery evaluated the [...] PT/OT recommending inpatient rehab, referral sent to [facility]. Patient seen today. She states [...] by FAYE IRVING on 01/06/2025 10:10 AM [id number] Note Date of Service 01/06/25 Chief Complaint Acute on chronic back pain Subjective 49-year-old female with past medical history of hypertension, hyperlipidemia, fibromyalgia, paroxysmal atrial fibrillation on Plavix as she is unable to tolerate aspirin or anticoagulation secondary to gastric ulcer, COPD, neuropathy, bipolar disorder, tobacco abuse, morbid obesity. Patient presented to [facility] as a transfer from [facility] on 01/02/2025 for management of her severe lumbar stenosis. She initially presented to [facility] on 01/01/2025 with low back pain radiating down her legs. She underwent an MRI of the lumbar spine that showed bilateral facet joint cystL3-L4 resulting in severe canal stenosis. She transferred to [facility] for neurosurgery evaluation. Neurosurgery evaluated the [...] PT/OT recommending inpatient rehab, referral sent to [facility]. Patient seen today. She states [...] by FAYE IRVING on 01/06/2025 10:10 AM [id number] Hematology Progress note Subjective Patient was feeling [...] -3230.00 Physical Exam In no apparent distress LEARNING SUPPORT AIDE: She was awake and alert Skin: Ecchymosis [...] Patient denied any weakness No other bleeding [id number] Digitally Signed by JENNY LUZ MD on 01/06/2025 04:18 AM [id number] Hematology Progress note Subjective Blood seen under [...] -1640.00 Physical Exam In no apparent distress LEARNING SUPPORT AIDE: She was awake and alert Respiratory: No [...] were answered. All the data was reviewed [id number] Digitally Signed by JENNY LUZ MD on 01/04/2025 11:45 PM [facility]Xnwzpbmg45-40-1010 Hematology Consult note Date of Service 01/03/2025 Reason for Consultation Nontraumatic ecchymosis History of Present Illness This is a 49-year-old female with a past medical history significant for hypertension paroxysmal atrial fibrillation, hyperlipidemia, COPD, and neuropathy. She presented to [facility] for management of severe lumbar stenosis. Due to the acute on chronic back pain the patient was sent to [facility] for evaluation from an orthospine and neurosurgery team due to the findings from her MRI lumbar spine. The patient was also found to have a large area of ecchymosis under her breast andupper abdomen that expanded to her back. She underwent a CT thorax for these findings that demonstrated a right breast and chest wall hematoma.. On exam this morning Mitchlel was sitting up comfortably in bed. She [...] hyperlipidemia, COPD, and neuropathy. She presented to [facility] for management of severe lumbar stenosis. Due to the acute on chronic back pain the patient was sent to [facility] for evaluation from an orthospine [...] by SHEILA BLANCAS on 01/03/2025 10:16 AM [facility] [id number] Surgery Consult note Date of Service 01/03/2025 [...] anxiety, and fibromyalgia who presented to the [facility] emergency department on 01/01/2025 with complaints of low back pain with radiation of pain down her legs. She was evaluated in the [facility] emergency department on 12/25 and 12/28 due to ongoing pain and at that time she was diagnosed with a narrowing of the canal and foramina in the lower lumbar region. It was recommended that sheundergo an MRI for further evaluation. Due to progressively worsening symptoms that she presented to the [facility] emergency department on 01/01/2025. A CT scan of the thorax was obtained in the emergency department secondary to incidental findings of a large chest wall hematoma. She was noted to have a large deep right breast/chest wall hematoma with concern a large lobulated hypodense lesion in the region of the right deep breast per the report. She was admitted to [facility] for further evaluation. She underwent an MRI of the lumbar spine that showed bilateral facet joint cyst of L3-L4 resulting in severe canal stenosis per the report. She was transferred to [facility] for evaluation by orthospine/the neuro spine service. She was transferred to [facility] and was admitted to the regular [...] 49-year-old female, on Plavix, who presented to [facility] on 01/02/2025 forfurther workup of severe canal stenosis seen on MRI while she was admitted to the [facility] and for evaluation from the neurosurgical [...] by DESMOND GARCES on 01/03/2025 11:36 AM [facility] [id number] Surgery Consult note Date of Service 01/03/2025 [...] anxiety, and fibromyalgia who presented to the [facility] emergency department on 01/01/2025 with complaints of low back pain with radiation of pain down her legs. She was evaluated in the [facility] emergency department on 12/25 and 12/28 due to ongoing pain and at that time she was diagnosed with a narrowing of the canal and foramina in the lower lumbar region. It was recommended that sheundergo an MRI for further evaluation. Due to progressively worsening symptoms that she presented to the [facility] emergency department on 01/01/2025. A CT scan of the thorax was obtained in the emergency department secondary to incidental findings of a large chest wall hematoma. She was noted to have a large deep right breast/chest wall hematoma with concern a large lobulated hypodense lesion in the region of the right deep breast per the report. She was admitted to [facility] for further evaluation. She underwent an MRI of the lumbar spine that showed bilateral facet joint cyst of L3-L4 resulting in severe canal stenosis per the report. She was transferred to [facility] for evaluation by orthospine/the neuro spine service. She was transferred to [facility] and was admitted to the regular [...] 49-year-old female, on Plavix, who presented to [facility] on 01/02/2025 forfurther workup of severe canal stenosis seen on MRI while she was admitted to the [facility] and for evaluation from the neurosurgical [...] by DESMOND GARCES on 01/03/2025 11:36 AM [facility] HospitalYclvnrgc12-03-4685 Neurological surgery Consult note Date of Service 01/03/2025 Reason for Consultation Back and leg pain with lumbar stenosis Referring Physician Dr. Coppola History of Present Illness This is a 49-year-old female, with past medical history of hypertension, hyperlipidemia, paroxysmalA-fib, COPD, morbid obesity, and neuropathy, who presented to [facility] for complaints of severe lumbar pain. She initially was seen in the emergency department on 01/01 for acute on chronic back pain. She was sent to [facility], for evaluation by neurosurgery after she had [...] pulses palpable. No edema noted Neurological: Skin: [place], warm, and dry. Psychiatric: Mood stable. Cooperative. [...] significant recently. - MRI was completed at [facility] and demonstrated an L3-L4 synovial cyst resulting in severe stenosis. Patient was transferred to [facility] for evaluation by neurosurgery. - At baseline, [...] by JUAN ENRIQUE on 01/03/2025 09:59 AM [facility] [id number] Neurological surgery Consult note Date of Service 01/03/2025 Reason for Consultation Back and leg pain with lumbar stenosis Referring Physician Dr. Coppola History of Present Illness This is a 49-year-old female, with past medical history of hypertension, hyperlipidemia, paroxysmalA-fib, COPD, morbid obesity, and neuropathy, who presented to [facility] for complaints of severe lumbar pain. She initially was seen in the emergency department on 01/01 for acute on chronic back pain. She was sent to [facility], for evaluation by neurosurgery after she had [...] pulses palpable. No edema noted Neurological: Skin: [place], warm, and dry. Psychiatric: Mood stable. Cooperative. [...] significant recently. - MRI was completed at [facility] and demonstrated an L3-L4 synovial cyst resulting in severe stenosis. Patient was transferred to [facility] for evaluation by neurosurgery. - At baseline, [...] by JUAN ENRIQUE on 01/03/2025 09:59 AM [facility] [id number] Neurological surgery Consult note Date of Service 01/03/2025 Reason for Consultation Back and leg pain with lumbar stenosis Referring Physician Dr. Coppola History of Present Illness This is a 49-year-old female, with past medical history of hypertension, hyperlipidemia, paroxysmalA-fib, COPD, morbid obesity, and neuropathy, who presented to [facility] for complaints of severe lumbar pain. She initially was seen in the emergency department on 01/01 for acute on chronic back pain. She was sent to [facility], for evaluation by neurosurgery after she had [...] pulses palpable. No edema noted Neurological: Skin: [place], warm, and dry. Psychiatric: Mood stable. Cooperative. [...] significant recently. - MRI was completed at [facility] and demonstrated an L3-L4 synovial cyst resulting in severe stenosis. Patient was transferred to [facility] for evaluation by neurosurgery. - At baseline, [...] by JUAN ENRIQUE on 01/03/2025 09:59 AM [facility] [id number] Note Reason for Consultation Admission From: Other: [facility], from home Consult Skin Team re: Pressure [...] Erythema Gluteal cleft - Skin Abnormality Color: [place], Red Gluteal cleft - Skin Abnormality Type: [...] RN, Skin Team on 01/03/2025 09:06 AM [facility] HospitalCwvzzmjw33-49-4207 Hematology Consult note Date of Service 01/03/2025 Reason for Consultation Nontraumatic ecchymosis History of Present Illness This is a 49-year-old female with a past medical history significant for hypertension paroxysmal atrial fibrillation, hyperlipidemia, COPD, and neuropathy. She presented to [facility] for management of severe lumbar stenosis. Due to the acute on chronic back pain the patient was sent to [facility] for evaluation from an orthospine [...] hyperlipidemia, COPD, and neuropathy. She presented to [facility] for management of severe lumbar stenosis. Due to the acute on chronic back pain the patient was sent to [facility] for evaluation from an orthospine [...] 11:43 EDT Digitally Signed by SHEILA BLANCAS APRN-ROTARY ENGINE ASSEMBLER on 01/03/2025 10:16 AM [facility] HospitalYrrcqhoi47-11-0503 History and physical note Date of Service January 02, 2025 Chief Complaint Back pain History of Present Illness This is a 49-year-old female with a past medical history significant for hypertension, hyperlipidemia, paroxysmal atrial fibrillation, morbid obesity, COPD, and neuropathy [facility]. [...] HELLEN HULL DO on 01/03/2025 01:55 AM [facility] HospitalCnnsdfxe01-76-9858 Evaluation + Plan noteExtracted from: Title:History and [...] Future Appointments Appointment Date:01/23/2025 01:15:00 PM Scheduled Provider:REBUEN LION JR, MD Location:[facility] Appointment Type:[facility] Hospital Follow Up Future Scheduled Tests Laboratory* Thyroid Stimulating Hormone 06/23/24 * Complete Blood Count 06/23/24 * Lipid Profile 06/23/24 * Complete Metabolic Panel 06/23/24 [facility] 09-11-2024 Primary care Note Chief Complaint [...] Use, 04/25/2017 Use: Never., 02/21/2019 Home/Environment Primary Forward Air Controller/Air Officer: self., 03/28/2024 Nutrition/Health Caffeine intake amount: Coffee, [...] 12 hours Duration: 10 Days Pickup at [facility] New guaiFENesin (Mucinex 600 mg oral tablet, extended release) 1 tab(s) by mouth Every 12 hours Duration: 10 Days Pickup at [facility] Changed bacillus coagulans-calcium carbonate (Digestive Advantage Daily Probiotics oral capsule) 1 cap by mouth Once a day Duration: 30 Days Pickup at [facility] Unchanged albuterol (albuterol 5 mg/ [...] prescriber if questions or concerns Pharmacy Information [facility]: [address], [place] [id number] [phone] Digitally Signed by SCARLETT ROSENBERG on 04/24/2024 08:51 PM [facility]08-12-2024 Telephone encounter Note* Telephone Encounter - Madyson Ramos - 03/25/2024 7:07 AM EDT Name of caller: Mitchell Brooks Contact phone number: [phone] Relationship to Patient: patient Provider: [facility] Practice: Gastroenterology Chief Complaint/Reason for Call: [...] to return their call: Yes [facility]kuttb53-37-9630 Miscellaneous Notes* Telephone Encounter - Madyson Ramos - 03/25/2024 7:07 AM EDT Name of caller: Mitchelllance Brooks Contact phone number: [phone] Relationship to Patient: patient Provider: Joyce Forester [...] return their call: Yes documented in this [facility]06-15-2023 Miscellaneous Notes* Telephone Encounter - Criss Landers - 01/26/2023 3:14 PM EDT This patient was seen by Myke Ross in the ED around . Patient lives out in [place] wanting a [facility] [phone] Please call her if there is any other questions Thanks! [facility] NoteHNO ID: [id number] Author: Melodie Smith APRN.ROTARY ENGINE ASSEMBLER Service: Cardiovascular Medicine Author Type: Nurse Practitioner Type: Plan of Care Filed: 01/14/2023 10:23 AM Note Text: [facility] BRIEF PLAN OF CARE CONSULTING SERVICE: Cardiology: Consult Team PRIMARY SERVICE: Internal Medicine HOSPITAL DAY: #4 REASON FOR CONSULT: Atrial fibrillation SUBJECTIVE HPI: Ms. Brooks is a 47 year old female from [place], [place] with h/o morbid obesity, necrotizing fascitis [...] as needed. Heart rate leniently controlled. - [id number] VASc score is 2. Recommend to start [...] -She wishes to establish care with a machining engineer in the [place] area>>recommend follow up in 3-4 weeks -No [...] 14, 2023 TIME: 10:18 AM PAGER/CONTACT #: [phone] For communication after 5 pm on weekdays and on weekends, please page the (more content not included)...[facility] CenterFngrnhzf56-43-0555 NoteHNO ID: [id number] Author: Cindy Hameed RN Service: Care Management [...] accepting home care agencies. Call placed to [facility] to inquire about who her case management coordinator is. Patient does not have a case management coordinator. Patient completing assessment over phone with Crystal from [facility] to get her qualified for case management coordinatorslot operations manager. SIGNATURE: Cindy Hameed RN PATIENT NAME: Mitchell Brooks DATE: January 13, 2023 TIME: 3:05 PM PAGER/CONTACT #: [phone] [id number] NoteHNO ID: [id number] Author: Chrissy Novoa MD Service: Hospital Medicine Author Type: Physician Type: Progress Notes Filed: 01/13/2023 1:21 PM Note Text: DEPARTMENT OF HOSPITAL MEDICINE PROGRESS NOTE SERVICE DATE: 01/13/2023 SERVICE TIME: 1:15 PM Hospital Medicine/Primary Attending: Chrissy Novoa MD NIGHT AND WEEKEND COVERAGE: [employer] COVERAGE: : [phone], please contact via Delivery Agent Nights: [phone] - 3rd floor: please page CC Hospitalist night cover [phone] - 4th floor: please page CC Hospitalist night cover [phone] - 5th floor: please page CC Hospitalist night cover [phone] Subjective INTERVAL HPI: Patient seen and examined. [...] asthma, copd, lymphedema, hypothyroidism, who presented to [facility] ED Monday with chills and weakness, then admitted here for continued care. Principal Problem: Sepsis (HCC) Cellulitis of left lower extremity Assessment AND Plan: symptom onset Monday afternoon, chills, rigors, fever. WBC 28. Initial lactate 2.3, improved to 1.4 after fluids. CXR nothing acute. Started on Zosyn at [facility] ED. No definite (more content not included)...[facility] CenterTedapegy28-67-4000 NoteHNO ID: [id number] Author: Myke Ross MD Service: Infectious Disease [...] 0659 01/12/23 0700 - 01/13/23 0659 Shift 2754-1896 2803-0441 24 Hour Total 3848-5140 4441-8015 2654-8205 24 Hour Total INTAKE PO 540 1140 252 435 6158 PO 540 1140 562 347 7311 Shift Total 540 1140 265 360 9951 OUTPUT Urine 400 400 800 300 100 [...] Myke Ross MD, PhD Staff, Infectious Disease [facility] Office [phone] Please call anytime with questions or concerns. Case findings/test results and suggestions disc (more content not included)... [facility] CenterBttkmcqh86-21-2830 NoteHNO ID: [id number] Author: Chrissy Novoa MD Service: Hospital Medicine Author Type: Physician Type: Progress Notes Filed: 01/12/2023 12:24 PM Note Text: DEPARTMENT OF HOSPITAL MEDICINE PROGRESS NOTE SERVICE DATE: 01/12/2023 SERVICE TIME: 12:19 PM Hospital Medicine/Primary Attending: Chrissy Novoa MD NIGHT AND WEEKEND COVERAGE: [employer] COVERAGE: Days: [phone], please contact via Delivery Agent Nights: - 3rd floor: please page CC Hospitalist night cover [phone] - 4th floor: please page CC Hospitalist night cover [phone] - 5th floor: please page CC Hospitalist night cover [phone] Subjective INTERVAL HPI: Patient seen and examined. [...] asthma, copd, lymphedema, hypothyroidism, who presented to [facility] ED Monday with chills and weakness, then admitted here for continued care. Principal Problem: Sepsis (HCC) Cellulitis of left lower extremity Assessment AND Plan: symptom onset Monday afternoon, chills, rigors, fever. WBC 28. Initial lactate 2.3, improved to 1.4 after fluids. CXR nothing acute. Started on Zosyn at [facility]. No definite source other than the possible cellulitis LLE. Vancomycin added on 01/10/2023. - Sepsis carepath - No more fever overnight, Tmax last 24 hours 37.2 ?C - Leukocytosis improved from 29.12 to 13.19 to 8.6 - ID switched antibiotics to (more content not included)...[facility] 01-12-2023 NoteHNO ID: [id number] Author: Mitchell Alfredo RN Service: Care Management Author Type: Registered Nurse Type: Care Mgt Progress Note Filed: 01/12/2023 1:30 PM Note Text: CARE MANAGEMENT PROGRESS NOTE SERVICE DATE: 01/12/2023 SERVICE TIME: 11:46 AM LOS: 2 days [place] of Choice Given: Yes Level of Care [...] the barrier of her [facility] plan, [facility] [employer] [facility] [place]. Will send referrals and attempt to arrange this service. If unable, patient may be interested in attending outpatient PT. She has done this in the past. 1329: Unable to secure Home PT for patient d/t insurance coverage. SIGNATURE: Mitchell Alfredo RN PATIENT NAME: Mitchell Brooks DATE: January 12, 2023 TIME: 11:46 AM PAGER/CONTACT #: [phone] [id number] NoteHNO ID: [id number] Author: Chrissy Novoa MD Service: Hospital Medicine Author Type: Physician Type: Progress Notes Filed: 01/11/2023 10:34 AM Note Text: DEPARTMENT OF HOSPITAL MEDICINE PROGRESS NOTE SERVICE DATE: 01/11/2023 SERVICE TIME: 10:28 AM Hospital Medicine/Primary Attending: Chrissy Novoa MD NIGHT AND WEEKEND COVERAGE: [place] COVERAGE: Days: [phone], please contact via Delivery Agent Nights: [phone] - 3rd floor: please page CC Hospitalist night cover [phone] - 4th floor: please page CC Hospitalist night cover [phone] - 5th floor: please page CC Hospitalist night cover [phone] Subjective INTERVAL HPI: Patient seen and examined. [...] asthma, copd, lymphedema, hypothyroidism, who presented to [facility] ED Monday with chills and weakness, then admitted here for continued care. Principal Problem: Sepsis (HCC) Cellulitis of left lower extremity Assessment AND Plan: symptom onset Monday afternoon, chills, rigors, fever. WBC 28. Initial lactate 2.3, improved to 1.4 after fluids. CXR nothing acute. Started on Zosyn at [facility]. No definite source other than the possible cellulitis LLE. Vancomycin added on 01/10/2023. - Sepsis carepath - No more fever overnight, Tmax last 24 hours 37.7 ?C -Leukocytosis improved from 29.12 to 13.19 - continue zosyn a (more content not included)...[facility] [id number] NoteHNO ID: [id number] Author: Myke Ross MD Service: Infectious Disease [...] 0659 01/11/23 0700 - 01/12/23 0659 Shift 8097-5694 4057-3759 9010-5780 24 Hour Total 3183-6311 9586-2427 0672-9949 24 Hour Total INTAKE PO 250 120 370 PO 250 120 370 IV 550 1095 1026 2671 Volume (mL) (piperacillin-tazobactam iv piggyback 3.375 g in dextrose (iso-osmotic) 50 mL (ZOSYN)) 100 100 50 250 Volume (mL) (vancomycin 1.5 g in NaCl 0.9% 250 mL (VANCOCIN)) 250 250 500 Volume (mL) (NaCl 0.9% iv infusion) 200 252 265 0141 Shift Total 800 1215 1026 3041 OUTPUT Urine 0325 583 6293 Urine Incontinence/Not Saved 1 x 1 x 2 x Output ( External Collection Device 01/10/23 0243) 8093 513 9260 # of BMs Stool Incontinence 1 x 1 x Number of BMs 2 x 2 x Shift Total 4451 972 9886 Weight (kg) 159.9 159.9 159.9 159.9 159.9 [...] Myke Ross MD, PhD Staff, Infectious Disease [place] (more content not included)...[facility] [id number] NoteHNO ID: [id number] Author: RT Patti(R) Service: Radiology Author Type: [...] BY: RT Patti(R) January 10, 2023 11:28 [id number] NoteHNO ID: [id number] Author: Chrissy Novoa MD Service: Hospital Medicine [...] Brooks DATE: January 10, 2023 TIME: 11:25 [id number] NoteHNO ID: [id number] Author: Cindy Hameed RN Service: Care Management Author Type: Registered Nurse Type: Care Mgt Initial Assessment Filed: 01/10/2023 10:31 AM Note Text: CARE MANAGEMENT: ASSESSMENT AND DISCHARGE PLAN SERVICE DATE: January 10, 2023 SERVICE TIME: 10:29 AM PCP: No primary care provider on file. Primary Contact: Extended Emergency Contact Information Primary Emergency Contact: Kalani Zhang Address: [address] [place] [phone] [place] [address] Relation: Daughter Secondary Emergency Contact: Rahul Ly Address: [address] [place] [phone] [place] [address] Mobile Relation: Ex Spouse Admission Status: Inpatient Insurance Provider: [facility] MEDICAID Discharge Planning requested by: Per Department Practice Potential Transition Plans Home Advance Directives Current Advance Directive: Health Care Power of Insurance Defense Paralegal In Chart: Yes Up To Date and Valid: No Special Agent Secret Service Attempted to Assist with AD Completion: Yes [...] Patient Goal(s): Be able to go home [place] Explained: [place] Given: No Reason Not Given: [...] 10, 2023 TIME: 10:29 AM CONTACT #: [phone] [id number] Miscellaneous Notes* Telephone Encounter - Aman Pena LPN - 07/25/2022 9:08 AM EST Pt has appt to Establish Care with Dr. Deepti Ruiz on 08/01/22. Dr. Lim has not been listed as this pt's PCP since 2012 and has not been seen by anyone in this practice since 2015. Aman Pena LPN [facility] History of Present illness Narrative* Geraldine Suggs MA - 06/24/2022 12:37 PM EST ED Follow Up: Patient discharged from [facility] ED on 06/22/2022. 1. How are you [...] you able to contact the office or tank wagon operator provider prior to your ED visit? Not applicable 5. Is there anything else I can do for you today? No Patient was transferred to call center to schedule apt. Geraldine Suggs MA front desk person rang busy documented in [facility] encounter[facility]12[facility] History of Past illness Narrative* Problem [...] of this encounter (statuses as of 01/27/2023) [facility] of Past illness Narrative* Problem Noted Date Resolved Date Myofascial pain 05/10/2013 07/20/2013 documented as of this encounter (statuses as of 06/24/2022) [facility] of Past illness Narrative* Problem Noted Date Resolved Date Myofascial pain 05/10/2013 07/20/2013 documented as of this encounter (statuses as of 07/25/2022) [facility] of Past illness Narrative* Problem Noted Date Resolved Date Myofascial pain 05/10/2013 07/20/2013 documented as of this encounter (statuses as of 07/25/2022) [facility] Future Scheduled Tests Laboratory* Thyroid Stimulating Hormone 06/23/24 * Complete Blood Count 06/23/24 * Lipid Profile 06/23/24 * Complete Metabolic Panel 06/23/24 [facility] aluation + Plan note Future Appointments Appointment Date:02/17/2025 02:30:00 PM Scheduled Provider:LEEANN KING MD Location:[facility] Appointment Type:NS OV Appointment Date:04/03/2025 02:00:00 PM Scheduled Provider:REUBEN LION JR, MD Location:[facility] Appointment Type:GS OV Check Up Future Scheduled Tests Laboratory* Thyroid Stimulating Hormone 06/23/24 * Complete Blood Count 06/23/24 * Lipid Profile 06/23/24 * Complete Metabolic Panel 06/23/24 [facility] Evaluation + Plan note Future Appointments Appointment Date:02/17/2025 02:30:00 PM Scheduled Provider:LEEANN KING MD Location:[facility] Appointment Type:NS OV Appointment Date:02/18/2025 02:00:00 PM Scheduled Provider:ANNETTE SAMANO Location:[facility] Appointment Type:PC OV Appointment Date:03/03/2025 12:45:00 PM Scheduled Provider:LILLIAM TURNER APRN-ROTARY ENGINE ASSEMBLER Location:[facility] Appointment Type:PM OV Appointment Date:04/03/2025 02:00:00 PM Scheduled Provider:REUBEN LION JR, MD Location:[facility] Appointment Type:GS OV Check Up Future Scheduled Tests Laboratory* Thyroid Stimulating Hormone 06/23/24 * Complete Blood Count 06/23/24 * Lipid Profile 06/23/24 * Complete Metabolic Panel 06/23/24 [facility] ation note* Diagnosis Onset Date Resolution Status Irritable bowel syndrome with diarrhea [facility] Work Phone: Evaluation note* Diagnosis Acquired hypothyroidism Unspecified hypothyroidism documented in this encounter [facility]* Diagnosis Onset Date Resolution Status GERD (gastroesophageal reflux disease) chronic Irritable bowel syndrome with diarrhea [facility] Work Phone: Evaluation noteNo assessment information available [facility] Work Phone: Hospital course Narrative No data available for this section [facility] Discharge instructions No data available for this section [facility] note No data available for this section [facility] Reason for referral (narrative)No reason for referral information availableWMercy Health [facility] Work Phone: Summary Purpose Family History No Family History Records Found Relationship Condition Age at Onset Recorded Date/T carlos Unknown Family History?Diabetes Unknown Apr 2:43pm Family History?Diabetes Unknown [facility] 2016 12:06am Family History?No pe rtinent history [...] No May 06, 2021 12:19pm Power of Insurance Defense Paralegal No April 12:19pm Documents on File Type Date Recorded 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 Advance Directive(s) 07/18/2016 10:03 AM [...] content) DATE CREATED AUTHOR 07/27/2018 [facility] DATE CREATED AUTHOR AUTHOR'S ORGANIZ ATION 05/03/2019 [facility] DATE CREATED AUTHOR AUTHOR'S ORGANIZ ATION 08/19/2020 [facility] DATE CREATED AUTHOR AUTHOR'S ORGANIZ ATION 01/24/2023 [facility] DATE CREATED AUTHOR AUTHOR'S ORGANIZ ATION 01/27/2023 [facility] DATE CREATED AUTHOR AUTHOR'S ORGANIZ ATION 02/14/2023 [facility] DATE CREATED AUTHOR AUTHOR'S ORGANIZ ATION 02/16/2023 [facility] DATE CREATED AUTHOR AUTHOR'S ORGANIZ ATION 2024 [facility] DATE CREATED AUTHOR AUTHOR'S ORGANIZ ATION 12/30/2024 [facility] DATE CREATED AUTHOR AUTHOR'S ORGANIZ ATION 02/02/2025 [facility] DATE CREATED AUTHOR AUTHOR'S ORGANIZ ATION 02/04/2025 [facility] DATE CREATED AUTHOR AUTHOR'S ORGANIZ ATION 03/19/2025 [facility] Goals (unrecognized section and content) Goals [...] or prosecute any alcohol or drug abuse patient.[facility] HospitalIn the event this information is protected by the Federal Confidentiality of Alcohol and Drug Abuse Patient Records regulations: The Federal rules restrict any use of the information to criminally investigate or prosecute any alcohol or drug abuse patient.[facility] HospitalIn the event this information is protected by the Federal Confidentiality of Alcohol and Drug Abuse Patient Records regulations: The Federal rules restrict any use of the information to criminally investigate or prosecute any alcohol or drug abuse patient.[facility] HospitalIn the event this information is protected by the Federal Confidentiality of Alcohol and Drug Abuse Patient Records regulations: The Federal rules restrict any use of the information to criminally investigate or prosecute any alcohol or drug abuse patient.[facility] HospitalIn the event this information is protected by the Federal Confidentiality of Alcohol and Drug Abuse Patient Records regulations: The Federal rules restrict any use of the information to criminally investigate or prosecute any alcohol or drug abuse patient.[facility] Reason for Visit (unrecogniz ed section [...] Provider, Referrin g Provider Active Cat Dent STRUCTURER, STRUCTURER-C Attending Provider Active Team Status: Inactive Member Role Status Dates Dr. Nabila Watson MD Primary Care Prov ider, Attending Provider, Referring Provider Active Chick Grader Relationship Specialty Start Date End Date Nabila Watson MD [address] [place] [address] PCP - General Family Medicine 01/11/23 Chick Grader Relationship Specialty Start Date End Date Geovanny Nesbitt DO [address] [place] [address] PCP - General 09/04/18 Team Status: Active Member Role Status Dates Dr. Geovanny Nesbitt DO Family Provider Active Annette Samano STRUCTURER, STRUCTURER-C Primary Care Provider Active Team Status: Inactive Member Role Status Dates Annette Samano STRUCTURER, STRUCTURER-C Primary Care Provider Active Start: January 29, 2025 End: January 29, 2025 Annette Samano STRUCTURER, STRUCTURER-C Attending Provider Active Start: January 29, 2025 End: January 29, 2025 Team Status: Active Member Role/Relationship Status Dates Annette Samano STRUCTURER, STRUCTURER-C Primary Care Provider Active Team Status: Inactive Member Role/Relationship Status Dates Annette aSmano STRUCTURER, STRUCTURER-C Primary Care Provider Active Start: January 29, 2025 End: January 29, 2025 Annette Samano STRUCTURER, STRUCTURER-C Attending Provider Active Start: January 29, 2025 [...] BE BASED ON THE PRIMARY CLINICAL RECORDS. [facility], [facility]. provides no warranty or guarantee of the accuracy or completeness of information in this document.
--- OUTSIDE RECORDS SUMMARY | 2025-06-01 20:26 | XMS RPT_ITS | CCD ---
Author Organization [facility] Care Team Providers Care Ambulance Dispatcher Name Role Phone OlivierLois Unavailable Unavailable PROVIDER, UNKNOWN Unavailable Unavailable Geovanny Nesbitt Unavailable Unavailable Dr. Nabila Watson Primary Care Provider Dr. Nabila Watson Referring Provider [phone] Friend, Dr. Martinez Attending Provider Unavailable Primary Care Provider Unavailcolton rivera Unavailable Primary Care Provider UnavailDr. Nabila Pennington Primary Care Provider Dr. Nabila Watson Referring Provider [phone] Filipe CONTRERAS, VISUAL DISPLAY ASSOCIATE-C Cat Wahl Attending Provider [phone] ROMÁN CHANDLER Referring Unavailable RYAN CHAVARRIAIDANA Attending [...] DR REUBEN BHAKTA Attending Unav ailable SAMANO DIRECTOR [facility], [facility] Unavai labann COPPOLA DO, DR JOSEPH Attending Unavailable SAMANO DIRECTOR PATIENT-[facility], [facility] Unavai labann YAP DO, FEMI M Consulting Unavailabl e KAPPER DIRECTOR PATIENT-[facility]HELL [facility], KEATON M Admitting Unavaila ble KAPPER DIRECTOR PATIENT-SHELL ASSEMBLER, KEATON M Admitting Unavaila ble ANGIE BULLARD, VALERIE Attending Unavailable ANGIE BULLARD, VALERIE Consulting Unavailable [facility], [facility] Care Alyssa Samano VISUAL DISPLAY ASSOCIATE-C, [facility] Primary Care Provider [place] VISUAL DISPLAY ASSOCIATE-C, Annette Attending Provider ElieruYng garrett Attending Unavailable Nabila Watson Referring Unavailable Nabila Watson Primary Care Unavailable [place] VISUAL DISPLAY ASSOCIATE, [facility] Primary Care Unavailable Aileen Campos Attending Unavail able [place] VISUAL DISPLAY ASSOCIATE, Annette Referring Unavailable ElierYung garrett Referring Unavailable ElierYung garrett Attending Unavailable [place] VISUAL DISPLAY ASSOCIATE, [facility] Unavailable [place] VISUAL DISPLAY ASSOCIATE, Annette Attending Unavailable [place] VISUAL DISPLAY ASSOCIATE, [facility] Unavailable Allergies Allergy Classification Reported Allergen(s) Allergy Type Date of Onset Reaction(s) Facility (2 sources) Aspirin Drug Allergy 05-25-20 21 Itching [facility] (5 sources) Ciprofloxacin; Translations: [ciprofloxacin HCl] Drug Allergy 05-25-20 21 Shortness of breath [facility] (16 sources) Codeine; Translations: [CODEINE] Drug Allergy 01-18-20 13 Itching [facility] (4 sources) HYDROcodone Drug Allergy 05-25-20 21 Shortness of breath [facility] (16 sources) Ibuprofen; Translations: [IBUPROFEN] Drug Allergy 01-18-20 13 Rash [facility] (16 sources) Morphine; Translations: [MORPHINE] Drug Allergy 01-18-20 13 Anaphylaxis [facility] (5 sources) Penicillins; Translations: [Penicillins] Propensity to adverse reactions 05-25-20 21 Itching [facility] (12 sources) tiZANidine; Translations: [TIZANIDINE HCL] Drug Allergy 06-22-20 15 Rash [facility] (12 sources) Acetaminophen / HYDROcodone; Translations: [HYDROCODONE-ACETA MINOPHEN] Drug Allergy 01-18-20 13 Anaphylaxis [facility] Work Phone: (12 sources) Ciprofloxacin; Translations: [CIPROFLOXACIN] Drug Allergy 01-18-20 13 Hives, Redness of skin of face [facility] (7 sources) Naproxen; Translations: [NAPROXEN SODIUM] Drug Allergy 05-13-20 15 Itching [facility] (3 sources) Lactose; Translations: [LACTOSE] Drug Allergy 01-13-20 23 Diarrhea [facility] Other [place] [facility] (3 sources) Acetaminophen; Translations: [acetaminophen] Drug Allergy 05-16-20 24 Anaphylaxis (disorder) [facility] (3 sources) celecoxib; Translations: [celecoxib] Drug Allergy 05-16-20 24 Swelling (morphologic abnormality) [facility] (7 sources) Cyproheptadine; Translations: [cyproheptadine] Drug Allergy 05-16-20 24 Weal (disorder) [facility] (7 sources) Naproxen; Translations: [naproxen] Drug Allergy 05-16-20 24 Itching (finding) [facility] (4 sources) Penicillin; Translations: [penicillins] Drug Allergy itching [facility] (7 sources) tiZANidine; Translations: [tizanidine] Drug Allergy 05-16-20 24 itching, redness of skin, Rash [facility] (1 source) Penicillin; Translations: [penicillins] Drug Allergy itching [facility] (1 source) Acetaminophen Drug Allergy 05-16-20 [facility] (1 source) celecoxib Drug Allergy 05-16-20 [facility] (1 source) Codeine Drug Allergy 05-16-20 24 [facility] (1 source) Cyproheptadine Drug Allergy 05-16-20 [facility] (1 source) HYDROcodone Drug Allergy 05-16-20 [facility] (1 source) Ibuprofen Drug Allergy 05-16-20 [facility] (1 source) Morphine Drug Allergy 05-16-20 [facility] (1 source) Naproxen Drug Allergy 05-16-20 [facility] (1 source) tiZANidine Drug Allergy 05-16-20 [facility] Medications Current Medications Medication Drug [...] day(s), # 28 tab(s), 0 Refill(s), Pharmacy: [facility], Lumbar spinal stenosis, 157.5, cm, 01/23/25 [...] wheezing, # 18 gram(s), 1 Refill(s), Pharmacy: [facility], Acute bronchitis Chronic obstructive pulmonary disease [...] 0 Refill(s), 05/04/24 8:46:00 PM EDT, Pharmacy: [facility], 157, cm, 03/28/24 13:53:00 EDT, Height, 154.9, kg, 03/28/24 13:53:00 EDT, Dosing Weight Start Date: 04/24/24 Stop Date: 05/04/24 Status: Ordered cephalexin 500 mg oral capsule (1 source) Cephalosporin Antibacterial Start: 02-05-2025 End: 02-15-2025 cephalexin 500 mg oral capsule Dose : 500 mg = 1 cap(s), Oral, QID, X 10 day(s), # 40 cap(s), 0 Refill(s), 02/15/25 5:01:00 PM EDT, Pharmacy: [facility], 157.5, cm, 01/23/25 13:05:00 EDT, Height, [...] qDay, # 90 tab(s), 0 Refill(s), Pharmacy: [facility], 157, cm, 03/28/24 13:53:00 EDT, Height, kg, 03/28/24 13:53:00 EDT, Dosing Weight Start Date: 04/19/24 Status: Ordered Start: 04-26-2023 take 1 capsule by [facility] once daily as needed Cetirizine (All [...] Pain, # 200 gram(s), 5 Refill(s), Pharmacy: [facility], Gel, 157, cm, 10/18/24 9:46:00 EST, [...] QID, # 360 cap(s), 0 Refill(s), Pharmacy: [facility], 157, cm, 11/15/24 10:32:00 EDT, Height, [...] qDay, # 30 cap(s), 1 Refill(s), Pharmacy: [facility], 157, cm, 03/28/24 13:53:00 EDT, Height, [...] BID, # 12 gram(s), 6 Refill(s), Pharmacy: [facility], Chronic obstructive pulmonary disease (COPD), 157.5, [...] 3:56pm Start: 10-27-2015 take 1 capsule by [facility] once daily at bedtime gabapentin (NEURONTIN) [...] Comment on above: Take 1 capsule by [facility] daily at bedtime. Gfqflsft-Vhoqu-Flg 2-C-D3-Kathrin (Ivnpqcxd-Nzxtwt-O sm With Vit D) 750-30-1,000-1 hl-qd-sewz-mg Tablet (4 sources) Start: 05-06-2021 take 1 tablet by mouth once daily Odiwzivt-Mezzw-Ejy 2-C-D3-Kathrin (Puxegpoq-Xbhyxa-Pxe With Vit D) 750-30-1,000-1 gy-mm-qura-mg Tablet Active 1 TABLET PO DAILY May 06, 2021 11:49am Start: 05-06-2021 Glucosam-Chond -Msm 2-C-D3-Kathrin (Vapjcbeb-Ixsgpl-Uwz With Vit D) 750-30-1,000-1 zt-ic-wnhd-mg Tablet Active 1 {tbl} PO DAILY May 06, 2021 12:00am Start: 05-06-2021 take 1 tablet by ashlyn th once daily Uhyopzrp-Eplke-Udy 2-C-D3-Kathrin (Scgvhbwf-Hpcfzc-Vnf With Vit D) 750-30-1,000-1 ku-ly-qexv-mg Tablet Active 1 TABLET PO DAILY May [...] 0 Refill(s), 05/04/24 8:44:00 PM EDT, Pharmacy: [facility], 157, cm, 03/28/24 13:53:00 EDT, Height, kg, 03/28/24 13:53:00 EDT, Dosing Weight Start Date: 04/24/24 Stop Date: 05/04/24 Status: Ordered hydroCHLOROthiazide 12.5 mg oral capsule (7 sources) Thiazide Diuretic Start: 04-19-2024 hydroCHLOROthiazide 12.5 mg oral capsule Dose : 12.5 mg = 1 cap(s), Oral, qDay, # 90 cap(s), 0 Refill(s), Pharmacy: [facility], 157, cm, 03/28/24 13:53:00 EDT, Height, [...] qDay, # 90 tab(s), 0 Refill(s), Pharmacy: [facility], 157, cm, 11/15/24 10:32:00 EDT, Height, kg, 11/15/24 10:32:00 EDT, Dosing Weight Start Date: 11/26/24 Status: Ordered Quantity: 90.0 Unit: tab(s) Repeat number: 1 Start: 04-19-2024 levothyroxine 50 mcg (0.05 mg) oral tablet Dose : 50 mcg = 1 tab(s), Oral, qDay, # 90 tab(s), 0 Refill(s), Pharmacy: [facility], 157, cm, 03/28/24 13:53:00 EDT, Height, kg, 03/28/24 13:53:00 EDT, Dosing Weight Start Date: 04/19/24 Status: Ordered Start: 05-13-2015 take 1 capsule by mo [facility] once daily Levothyroxine 50 mcg cap Indications: Acquired hypothyroidism Take 1 capsule by mouth once daily. 30 capsule 12 05/13/2015 Active Start: 05-02-2015 take 1 tablet by [facility] once daily Levothyroxine (Unithroid) 50 MCG [...] Comment on above: Take 1 capsule by [facility] once daily. methocarbamol 750 mg oral tablet (18 sources) Muscle Relaxant Start: 11-15-2024 End: 02-13-2025 methocarbamol 750 mg oral tablet Dose : 750 mg = 1 tab(s), Oral, TID, PRN as needed for pain, X 30 day(s), # 90 tab(s), 2 Refill(s), 02/13/25 11:27:00 AM EDT, Pharmacy: [facility], Fibromyalgia Arthritis of both knees, 157, [...] TID, # 270 tab(s), 0 Refill(s), Pharmacy: [facility], 157.5, cm, 01/23/25 13:05:00 EDT, Height, kg, 01/23/25 13:05:00 EDT, Dosing Weight Start Date: 01/27/25 Stop Date: 04/27/25 Status: Ordered Quantity: 270.0 Unit: tab(s) Repeat number: 1 Start: 12-30-2024 oxybutynin 5 m g oral tablet Dose : 5 mg = 1 tab(s), Oral, BID, # 180 tab(s), 0 Refill(s), Pharmacy: [facility], 157, cm, 12/16/24 14:49:00 EDT, Height, kg, 12/16/24 14:39:00 EDT, Dosing Weight Start Date: 12/30/24 Status: Ordered Quantity: 180.0 Unit: tab(s) Repeat number: 1 Start: 04-19-2024 oxybutynin 5 m g oral tablet Dose : 5 mg = 1 tab(s), Oral, BID, # 180 tab(s), 0 Refill(s), Pharmacy: [facility], 157, cm, 03/28/24 13:53:00 EDT, Height, [...] BID, # 180 tab(s), 3 Refill(s), Pharmacy: [facility], 157, cm, 11/15/24 10:32:00 EDT, Height, [...] on above: Take 2 tablets by mo [facility] once daily for 5 days. pregabalin 75 mg oral capsule (4 sources) Start: 5 End: 5 pregabalin 75 mg oral capsule Dose : 75 mg = 1 cap(s), Oral, TID, # 90 cap(s), 2 Refill(s), Pharmacy: [facility], Fibromyalgia Arthritis of both knees, 157, [...] Start: 05-06-2021 take 1 capsule by mo [facility] once daily Pumpkin Seed Extract-Soy Germ (Azo Bladder Control) 300 mg Capsule Active 1 CAP PO DAILY May 06, 2021 12:00am QUEtiapine 50 mg oral tablet (7 sources) Atypical Antipsychotic Start: 04-26-2023 End: 06-14-2025 QUEtiapine 50 mg oral tablet Dose : 100 mg = 2 tab(s), Oral, qHS, # 180 tab(s), 1 Refill(s), Pharmacy: [facility], Bipolar disorder, 157, cm, 12/16/24 14:49:00 [...] 01, 2023 11:26am [facility] sertraline (ZOLOFT) 50 mg tablet [...] BID, # 180 tab(s), 0 Refill(s), Pharmacy: [facility], 157.5, cm, 01/23/25 13:05:00 EDT, Height, kg, 01/23/25 13:05:00 EDT, Dosing Weight Start Date: 01/27/25 Status: Ordered Quantity: 180.0 Unit: tab(s) Repeat number: 1 Start: 10-10-2024 Colestid 1 g o ral tablet Dose : 1 gram(s) = 1 tab(s), Oral, BID, # 180 tab(s), 0 Refill(s), Pharmacy: [facility], 157, cm, 03/28/24 13:53:00 EDT, Height, kg, 03/28/24 13:53:00 EDT, Dosing Weight Start Date: 10/10/24 Status: Ordered Quantity: 180.0 Unit: tab(s) Repeat number: 1 Start: 04-19-2024 Colestid 1 g o ral tablet Dose : 1 gram(s) = 1 tab(s), Oral, BID, # 180 tab(s), 0 Refill(s), Pharmacy: [facility], 157, cm, 03/28/24 13:53:00 EDT, Height, [...] Facility Urine Cultureon 02-01-2025 [facility] Proteus mirabilis [place] Count 25,000-50,000 Proteus mirabilis Proteus mirabilis Proteus [...] TMP SMX Islt CYNDY <=20 S Normal [facility] Comment on above: Performed By: #### L 400. #### [facility] [address] [place], [address] Bilirubin Test strip Ql (U)O rdered By: Annette Samano on 01-29-2025 Bilirubin Ql (U) Negative Negative [facility] Ketones Test strip Ql (U)Ord ered By: Annette Samano on 01-29-2025 Ketones Ql (U) Negative Negative [facility] Protein Test strip Ql (U)Ord ered By: Annette Samano on 01-29-2025 Protein Ql (U) Negative Negative [facility] Urinalysis, Routine (Dipstic k)on 01-29-2025 BILIRUBIN URINE Negative Normal Negative [facility] Comment on above: Order Comment: Urine , Random Performed By: #### L 400. #### [facility] [address] [place], [address] GLUCOSE, UR Normal Normal Normal [facility] Comment on above: Order Comment: Urine , Random Performed By: #### L 400. #### [facility] [address] [place], [address] KETONE UR Negative Normal Negative [facility] Comment on above: Order Comment: Urine , Random Performed By: #### L 400. #### [facility] [address] [place], [address] LEUK ESTERASE 100 /ul Abnormal Negative [facility] Comment on above: Order Comment: Urine , Random Performed By: #### L 400. #### [facility] [address] [place], [address] OCCULT BLOOD-UR Negative Normal Negative [facility] Comment on above: Order Comment: Urine , Random Performed By: #### L 400.2010, #### [facility] [address] [place], [address] pH UR 7.0 Normal 5.0 - 8.0 [facility] Comment on above: Order Comment: Urine , Random Performed By: #### L 400.2010, #### [facility] [address] [place], [address] PROT DIPSTX Negative Normal Negative [facility] Comment on above: Order Comment: Urine , Random Performed By: #### L 400.2010, #### [facility] [address] [place], [address] SP.GR. DIPSTX 1.010 Normal 1.002-1.030 [facility] Comment on above: Order Comment: Urine , Random Performed By: #### L 400.2010, #### [facility] [address] [place], [address] UROBILI Normal Normal Normal [facility] Comment on above: Order Comment: Urine , Random Performed By: #### L 400.2010, #### [facility] [address] [place], [address] Urine clarityOrdered By: Radha Samano on 01-29-2025 Clarity (U) Clear Normal Clear [facility] Comment on above: Order Comment: Urine , Random Performed By: #### L 400.2010, #### [facility] [address] [place], [address] Urine color determinationOrd ered By: Annette Samano on 01-29-2025 Color (U) Yellow Normal Yellow [facility] Comment on above: Order Comment: Urine , Random Performed By: #### L 400.2010, #### [facility] [address] [place], [place], [id number] Urine cultureOrdered By: Radha gaetano Samano on 01-29-2025 Bacteria identified Cx Nom (U) Proteus mirabilis Abnormal [facility] Bacteria identified Cx Nom (U) Proteus mirabilis#2 Abnormal [facility] Urine glucose detectionOrder ed By: Annette Samano on 01-29-2025 Glucose Ql (U) Normal mg/dl Normal [facility] Urine leukocyte esterase det ection by dipstickOrdered By: Annette Samano on 01-29-2025 Leukocyte esterase Test strip Ql (U) 100 /ul High Negative [facility] Urine nitrite test by dipsti ckOrdered By: Annette Samano on 01-29-2025 Nitrite Ql (U) Negative Normal Negative [facility] Comment on above: Order Comment: Urine , Random Performed By: #### L 400.2010, M100.0 #### [facility] [address] [place] [address], [id number] Urine pHOrdered By: Annette crowe on 01-29-2025 pH (U) 7.0 [pH] 5.0 - 8.0 [facility] Urine specific gravity measu rementOrdered By: Annette Samano on 01-29-2025 Specific gravity (U) [Rel density] 1.010 1.002-1.030 [facility] Urine urobilinogen measureme ntOrdered By: Annette Samano on 01-29-2025 Urobilinogen Ql (U) Normal mg/dl Normal [facility] LABORATORYOrdered By: Noreen Wetzel on [...] Probable Contamination. Suggest recollection if clinically indicated. [facility] UAon 01-14-2025 Color (U) Yellow Normal [facility] Comment on above: Performed By: #### U AMIC, UA #### [address] [address] Glucose (U) [Mass/Vol] Negative Normal Negative [facility] Comment on above: Performed By: #### U AMIC, UA #### [facility] [address] [place], [place] [address] Ketones Ql (U) Negative Normal Negative [facility] Comment on above: Performed By: #### U AMIC, UA #### [place] [address] UA Appear Cloudy Abnormal Clear [facility] Comment on above: Performed By: #### U AMIC, UA #### [address] [address] UA Blood Moderate Abnormal Negative [facility] Comment on above: Performed By: #### U AMIC, UA #### [address] [address] UA Leuk Est Moderate Abnormal Negative [facility] Comment on above: Performed By: #### U AMIC, UA #### [place] [address] UA Nitrite Positive Abnormal Negative [facility] Comment on above: Performed By: #### U AMIC, UA #### [place] [address] UA pH 7.5 Normal 5.0 - 8.[address] [facility] Comment on above: Performed By: #### U AMIC, UA #### [place] [address] UA Protein 30 mg/dL Normal Negative [facility] Comment on above: Performed By: #### U AMIC, UA #### [address] [address] UA Spec Grav 1.015 Normal 1.015-1.[address] [facility] Comment on above: Performed By: #### U AMIC, UA #### [address] [address] UA Specimen Type Clean Catch Normal [facility] Comment on above: Performed By: #### U AMIC, UA #### [place] [address] UA Urobilinogen 0.2 E.U./dL Normal 0.2-1.[address] [facility] Comment on above: Performed By: #### U AMIC, UA #### [address] [address] Urobilinogen (U) [Mass/Vol] Negative Normal Negative [facility] Comment on above: Performed By: #### U AMIC, UA #### [address] [address] UAMICon 01-14-2025 UA Amorphus 2+ /hpf Normal [facility] Comment on above: Performed By: #### U AMIC, UA #### [address] [address] UA Bacteria 4+ /hpf Abnormal Negative [facility] Comment on above: Performed By: #### U AMIC, UA #### [address] [address] UA CA Ox Crystal Trace Normal [facility] Comment on above: Performed By: #### U AMIC, UA #### [place] [address] UA RBC 3-5 Abnormal 0-[address] [facility] Comment on above: Performed By: #### U AMIC, UA #### [address] [address] UA Squam Epithelial 25-50 Abnormal 0-20 [facility] Comment on above: Performed By: #### U AMIC, UA #### [address] [address] UA WBC LOADED Abnormal 0-[address] [facility] Comment on above: Performed By: #### U AMIC, UA #### [address] [address] .Auto Diffon 01-09-2025 Basophil, Absolute 0.1 10 3/mcL Normal 0.0-0.3 [facility] Comment on above: Performed By: #### A DIFF, ANEU, CBC #### [facility] [address] [place] [address] Basophils/100 WBC (Bld) 0.7 % Normal 0.0-2.5 [facility] Comment on above: Performed By: #### A DIFF, ANEU, CBC #### [address] [address] Eosinophil, Absolute 0.4 10 3/mcL Normal 0.0-0.7 [facility] Comment on above: Performed By: #### A DIFF, ANEU, CBC #### [address] [address] Eosinophils/100 WBC (Bld) 3.3 % Normal 0.0-6.0 [facility] Comment on above: Performed By: #### A DIFF, ANEU, CBC #### [address] [address] Lymphocyte, Absolute 2.4 10 3/mcL Normal 0.9-4.3 [facility] Comment on above: Performed By: #### A DIFF, ANEU, CBC #### [address] [address] Lymphocytes/100 WBC (Bld) 21.9 % Normal 20.0-40.0 [facility] Comment on above: Performed By: #### A DIFF, ANEU, CBC #### [address] [address] Monocyte, Absolute 0.9 10 3/mcL Normal 0.1-1.4 [facility] Comment on above: Performed By: #### A DIFF, ANEU, CBC #### [address] [address] Monocytes/100 WBC (Bld) 8.4 % Normal 2.0-13.0 [facility] Comment on above: Performed By: #### A DIFF, ANEU, CBC #### [address] [address] Neutrophils/100 WBC (Bld) 65.7 % Normal 50.0-75.0 [facility] Comment on above: Performed By: #### A DIFF, ANEU, CBC #### [address] [address] .GFRon 01-09-2025 Estimated Glomerular Filtration Rate 111 ml/min/1.73sqm Normal [facility] Comment on above: Result Comment: [...] By: #### A DIFF, ANEU, CBC #### [address] [address] .NEUABSon 01-09-2025 Neutrophil, Absolute 7.3 10 3/mcL Normal 2.3-8.1 [facility] Comment on above: Performed By: #### A DIFF, ANEU, CBC #### [address] [address] BMPon 01-09-2025 BUN/Creatinine Ratio 26.8 ratio High 10.0-22.0 [facility] Comment on above: Performed By: #### A DIFF, ANEU, CBC #### [address] [address] Calcium [Mass/Vol] 9.0 mg/dL Normal 8.7-10.4 [facility] Comment on above: Performed By: #### A DIFF, ANEU, CBC #### [address] [address] Chloride [Moles/Vol] 106 mmol/L Normal 98-110 [facility] Comment on above: Performed By: #### A DIFF, ANEU, CBC #### [address] [address] CO2 [Moles/Vol] 27 mmol/L Normal 22-32 [facility] Comment on above: Performed By: #### A DIFF, ANEU, CBC #### [address] [address] Creatinine [Mass/Vol] 0.56 mg/dL Normal 0.50-1.20 [facility] Comment on above: Result Comment: Test ing performed on [employer] CH analyzer using enzymatic creatinine methodology. Performed By: #### A DIFF, ANEU, CBC #### [address] [address] Electrolyte Balance 8.0 mEq/L Normal 4.0-15.0 [facility] Comment on above: Performed By: #### A DIFF, ANEU, CBC #### [address] [address] Glucose [Mass/Vol] 98 mg/dL Normal 70-110 [facility] Comment on above: Performed By: #### A DIFF, ANEU, CBC #### [address] [address] Potassium [Moles/Vol] 3.9 mmol/L Normal 3.5-5.0 [facility] Comment on above: Performed By: #### A DIFF, ANEU, CBC #### [address] [address] Sodium [Moles/Vol] 141 mmol/L Normal 136-145 [facility] Comment on above: Performed By: #### A DIFF, ANEU, CBC #### [address] [address] Urea nitrogen [Mass/Vol] 15.0 mg/dL Normal 8.0-22.0 [facility] Comment on above: Performed By: #### A DIFF, ANEU, CBC #### [address] [address] [facility] Erythrocyte distribution width (RBC) [Ratio] 17.6 % High 11.5-15.5 [facility] Comment on above: Performed By: #### A DIFF, ANEU, CBC #### [address] [address] Hematocrit (Bld) [Volume fraction] 32.0 % Low 34.0-46.0 [facility] Comment on above: Performed By: #### A DIFF, ANEU, CBC #### [address] [address] Hgb 10.6 G/dL Low 12.0-16.0 [facility] Comment on above: Performed By: #### A DIFF, ANEU, CBC #### [place] [id number] MCH (RBC) [Entitic mass] 28.0 pg Normal 27.0-33.0 [facility] Comment on above: Performed By: #### A DIFF, ANEU, CBC #### [place] [address] MCHC 33.0 G/dL Normal 32.0-36.0 [facility] Comment on above: Performed By: #### A DIFF ANEU, CBC #### [place] [address] MCV (RBC) [Entitic vol] 84.8 fL Normal 80.0-99.0 [facility] [facility] Comment on above: Performed By: #### A DIFF ANEU, CBC #### [place] [address] Platelet 342 10 3/mcL Normal 150-450 [facility] Comment on above: Performed By: #### A DIFF ANEU, CBC #### [place] [address] Platelet mean volume (Bld) [Entitic vol] 8.2 fL Normal 6.6-10.5 [facility] Comment on above: Performed By: #### A DIFF ANEU, CBC #### [place] [address] RBC 3.78 10 6/mcL Low 4.10-5.30 [facility] Comment on above: Performed By: #### A DIFF, ANEU, CBC #### [place] [address] WBC 11.2 10 3/mcL High 4.5-10.8 [facility] Comment on above: Performed By: #### A DIFF ANEU, CBC #### [place] [address] LABORATORYOrdered By: Kaykay Pierson on 01-09-2025 Beta HCG ( test) Ql (U) Negative (01/09/25 8:10 AM) [facility] LABORATORYOrdered By: [employer] SYSTEM on 01-09-2025 Basophils (Bld) [#/Vol] 0.1 [...] above: Interpretive Data: T esting performed on Content Savvy analyzer using enzymatic creatinine methodology. Electrolyte Balance [...] Basophil, Absolute 0.1 10 3/mcL Normal 0.0-0.3 [facility] Comment on above: Performed By: #### C BC, ANEU, BMP, ADIFF, GFR #### [address] [address] Basophils/100 WBC (Bld) 0.7 % Normal 0.0-2.5 [facility] Comment on above: Performed By: #### C BC, ANEU, BMP, ADIFF, GFR #### [address] [address] Eosinophil, Absolute 0.3 10 3/mcL Normal 0.0-0.7 [facility] Comment on above: Performed By: #### C BC, ANEU, BMP, ADIFF, GFR #### [address] [address] Eosinophils/100 WBC (Bld) 2.7 % Normal 0.0-6.0 [facility] Comment on above: Performed By: #### C BC, ANEU, BMP, ADIFF, GFR #### [address] [address] Lymphocyte, Absolute 1.9 10 3/mcL Normal 0.9-4.3 [facility] Comment on above: Performed By: #### C BC, ANEU, BMP, ADIFF, GFR #### [address] [address] Lymphocytes/100 WBC (Bld) 18.5 % Low 20.0-40.0 [facility] Comment on above: Performed By: #### C BC, ANEU, BMP, ADIFF, GFR #### [address] [address] Monocyte, Absolute 0.8 10 3/mcL Normal 0.1-1.4 [facility] Comment on above: Performed By: #### C BC, ANEU, BMP, ADIFF, GFR #### [address] [address] Monocytes/100 WBC (Bld) 7.6 % Normal 2.0-13.0 [facility] Comment on above: Performed By: #### C BC, ANEU, BMP, ADIFF, GFR #### [address] [address] Neutrophils/100 WBC (Bld) 70.5 % Normal 50.0-75.0 [facility] Comment on above: Performed By: #### C BC, ANEU, BMP, ADIFF, GFR #### [address] [address] .GFRon 01-08-2025 Estimated Glomerular Filtration Rate 112 ml/min/1.73sqm Normal [facility] Comment on above: Result Comment: [...] By: #### A DIFF, ANEU, CBC #### [address] [address] .NEUABSon 01-08-2025 Neutrophil, Absolute 7.3 10 3/mcL Normal 2.3-8.1 [facility] Comment on above: Performed By: #### C BC, ANEU, BMP, ADIFF, GFR #### [address] [address] BMPon 01-08-2025 BUN/Creatinine Ratio 27.8 ratio High 10.0-22.0 [facility] Comment on above: Performed By: #### A DIFF, ANEU, CBC #### [address] [address] Calcium [Mass/Vol] 9.1 mg/dL Normal 8.7-10.4 [facility] Comment on above: Performed By: #### A DIFF, ANEU, CBC #### [address] [address] Chloride [Moles/Vol] 105 mmol/L Normal 98-110 [facility] Comment on above: Performed By: #### A DIFF, ANEU, CBC #### [address] [address] CO2 [Moles/Vol] 29 mmol/L Normal 22-32 [facility] Comment on above: Performed By: #### A DIFF, ANEU, CBC #### [address] [address] Creatinine [Mass/Vol] 0.54 mg/dL Normal 0.50-1.20 [facility] Comment on above: Result Comment: Test ing performed on Content [employer] analyzer using enzymatic creatinine methodology. Performed By: #### A DIFF, ANEU, CBC #### [address] [address] Electrolyte Balance 6.0 mEq/L Normal 4.0-15.0 [facility] Comment on above: Performed By: #### A DIFF, ANEU, CBC #### [address] [address] Glucose [Mass/Vol] 123 mg/dL High 70-110 [facility] Comment on above: Performed By: #### A DIFF, ANEU, CBC #### [address] [address] Potassium [Moles/Vol] 3.8 mmol/L Normal 3.5-5.0 [facility] Comment on above: Performed By: #### A DIFF, ANEU, CBC #### [address] [address] Sodium [Moles/Vol] 140 mmol/L Normal 136-145 [facility] Comment on above: Performed By: #### A DIFF, ANEU, CBC #### [address] [address] Urea nitrogen [Mass/Vol] 15.0 mg/dL Normal 8.0-22.0 [facility] Comment on above: Performed By: #### A DIFF, ANEU, CBC #### [address] [address] CBCon 01-08-2025 Erythrocyte distribution width (RBC) [Ratio] 18.1 % High 11.5-15.5 [facility] Comment on above: Performed By: #### C BC, ANEU, BMP, ADIFF, GFR #### [place] [address] Hematocrit (Bld) [Volume fraction] 32.5 % Low 34.0-46.0 [facility] Comment on above: Performed By: #### C BC, ANEU, BMP, ADIFF, GFR #### [place] [address] Hgb 10.5 G/dL Low 12.0-16.0 [facility] Comment on above: Performed By: #### C BC, ANEU, BMP, ADIFF, GFR #### [place] [address] MCH (RBC) [Entitic mass] 27.9 pg Normal 27.0-33.0 [facility] Comment on above: Performed By: #### C BC, ANEU, BMP, ADIFF, GFR #### [place] [address] MCHC 32.4 G/dL Normal 32.0-36.0 [facility] Comment on above: Performed By: #### C BC, ANEU, BMP, ADIFF, GFR #### [place] [address] MCV (RBC) [Entitic vol] 86.3 fL Normal 80.0-99.0 [facility] Comment on above: Performed By: #### C BC, ANEU, BMP, ADIFF, GFR #### [place] [address] Platelet 320 10 3/mcL Normal 150-450 [facility] Comment on above: Performed By: #### C BC, ANEU, BMP, ADIFF, GFR #### [place] [address] Platelet mean volume (Bld) [Entitic vol] 8.2 fL Normal 6.6-10.5 [facility] Comment on above: Performed By: #### C BC, ANEU, BMP, ADIFF, GFR #### [place] [address] RBC 3.76 10 6/mcL Low 4.10-5.30 [facility] Comment on above: Performed By: #### C BC, ANEU, BMP, ADIFF, GFR #### [facility] [address] [place] [address] WBC 10.3 10 3/mcL Normal 4.5-10.8 [facility] Comment on above: Performed By: #### C BC, ANEU, BMP, ADIFF, GFR #### [place] [id number] [place] [address] LABORATORYOrdered By: SYSTEM SYSTEM on 01-08-2025 Basophils [...] above: Interpretive Data: T esting performed on [employer] CH analyzer using enzymatic creatinine methodology. Electrolyte [...] Basophil, Absolute 0.1 10 3/mcL Normal 0.0-0.3 [facility] Comment on above: Performed By: #### A DIFF, ANEU, CBC #### [address] [address] Basophils/100 WBC (Bld) 0.7 % Normal 0.0-2.5 [facility] Comment on above: Performed By: #### A DIFF, ANEU, CBC #### [address] [address] Eosinophil, Absolute 0.3 10 3/mcL Normal 0.0-0.7 [facility] Comment on above: Performed By: #### A DIFF, ANEU, CBC #### [address] [address] Eosinophils/100 WBC (Bld) 3.0 % Normal 0.0-6.0 [facility] Comment on above: Performed By: #### A DIFF, ANEU, CBC #### [address] [address] Lymphocyte, Absolute 2.6 10 3/mcL Normal 0.9-4.3 [facility] Comment on above: Performed By: #### A DIFF, ANEU, CBC #### [address] [address] Lymphocytes/100 WBC (Bld) 23.4 % Normal 20.0-40.0 [facility] Comment on above: Performed By: #### A DIFF, ANEU, CBC #### [address] [address] Monocyte, Absolute 0.9 10 3/mcL Normal 0.1-1.4 [facility] Comment on above: Performed By: #### A DIFF, ANEU, CBC #### [address] [address] Monocytes/100 WBC (Bld) 7.9 % Normal 2.0-13.0 [facility] Comment on above: Performed By: #### A DIFF, ANEU, CBC #### [address] [address] Neutrophils/100 WBC (Bld) 65.0 % Normal 50.0-75.0 [facility] Comment on above: Performed By: #### A DIFF, ANEU, CBC #### [address] [address] .NEUABSon 01-07-2025 Neutrophil, Absolute 7.2 10 3/mcL Normal 2.3-8.1 [facility] Comment on above: Performed By: #### A DIFF, ANEU, CBC #### [place] [address] CBCon 01-07-2025 Erythrocyte distribution width (RBC) [Ratio] 17.6 % High 11.5-15.5 [facility] Comment on above: Performed By: #### A DIFF, ANEU, CBC #### [place] [address] Hematocrit (Bld) [Volume fraction] 30.6 % Low 34.0-46.0 [facility] Comment on above: Performed By: #### A DIFF, ANEU, CBC #### [place] [address] Hgb 9.8 G/dL Low 12.0-16.0 [facility] Comment on above: Performed By: #### A DIFF, ANEU, CBC #### [place] [address] MCH (RBC) [Entitic mass] 27.7 pg Normal 27.0-33.0 [facility] Comment on above: Performed By: #### A DIFF, ANEU, CBC #### [place] [address] MCHC 32.1 G/dL Normal 32.0-36.0 [facility] Comment on above: Performed By: #### A DIFF, ANEU, CBC #### [address] [address] MCV (RBC) [Entitic vol] 86.3 fL Normal 80.0-99.0 [facility] Comment on above: Performed By: #### A DIFF, ANEU, CBC #### [place] [id number] Platelet 320 10 3/mcL Normal 150-450 [facility] Comment on above: Performed By: #### A DIFF, ANEU, CBC #### [place] [address] Platelet mean volume (Bld) [Entitic vol] 8.5 fL Normal 6.6-10.5 [facility] Comment on above: Performed By: #### A DIFF, ANEU, CBC #### [place] [address] RBC 3.54 10 6/mcL Low 4.10-5.30 [facility] Comment on above: Performed By: #### A DIFF, ANEU, CBC #### [place] [address] WBC 11.1 10 3/mcL High 4.5-10.8 [facility] Comment on above: Performed By: #### A DIFF, ANEU, CBC #### [place] [address] LABORATORYOrdered By: SYSTEM SYSTEM on 01-07-2025 Basophils [...] Basophil, Absolute 0.1 10 3/mcL Normal 0.0-0.3 [facility] Comment on above: Performed By: #### C BC, ANEU, BMP, ADIFF, GFR #### [facility] [address] [place] [address] Basophils/100 WBC (Bld) 0.9 % Normal 0.0-2.5 [facility] Comment on above: Performed By: #### C BC, ANEU, BMP, ADIFF, GFR #### [address] [address] Eosinophil, Absolute 0.3 10 3/mcL Normal 0.0-0.7 [facility] Comment on above: Performed By: #### C BC, ANEU, BMP, ADIFF, GFR #### [address] [address] Eosinophils/100 WBC (Bld) 2.8 % Normal 0.0-6.0 [facility] Comment on above: Performed By: #### C BC, ANEU, BMP, ADIFF, GFR #### [address] [address] Lymphocyte, Absolute 2.5 10 3/mcL Normal 0.9-4.3 [facility] Comment on above: Performed By: #### C BC, ANEU, BMP, ADIFF, GFR #### [address] [address] Lymphocytes/100 WBC (Bld) 21.2 % Normal 20.0-40.0 [facility] Comment on above: Performed By: #### C BC, ANEU, BMP, ADIFF, GFR #### [address] [address] Monocyte, Absolute 1.0 10 3/mcL Normal 0.1-1.4 [facility] Comment on above: Performed By: #### C BC, ANEU, BMP, ADIFF, GFR #### [address] [address] Monocytes/100 WBC (Bld) 8.3 % Normal 2.0-13.0 [facility] Comment on above: Performed By: #### C BC, ANEU, BMP, ADIFF, GFR #### [address] [address] Neutrophils/100 WBC (Bld) 66.8 % Normal 50.0-75.0 [facility] Comment on above: Performed By: #### C BC, ANEU, BMP, ADIFF, GFR #### [address] [address] .GFRon 01-06-2025 Estimated Glomerular Filtration Rate 104 ml/min/1.73sqm Normal [facility] Comment on above: Result Comment: [...] C BC, ANEU, BMP, ADIFF, GFR #### [address] [address] .NEUABSon 01-06-2025 Neutrophil, Absolute 7.8 10 3/mcL Normal 2.3-8.1 [facility] Comment on above: Performed By: #### C BC, ANEU, BMP, ADIFF, GFR #### [address] [address] [facility] 01-06-2025 BUN/Creatinine Ratio 18.3 ratio Normal 10.0-22.0 [facility] Comment on above: Performed By: #### C BC, ANEU, BMP, ADIFF, GFR #### [address] [address] Calcium [Mass/Vol] 9.3 mg/dL Normal 8.7-10.4 [facility] Comment on above: Performed By: #### C BC, ANEU, BMP, ADIFF, GFR #### [address] [address] Chloride [Moles/Vol] 105 mmol/L Normal 98-110 [facility] Comment on above: Performed By: #### C BC, ANEU, BMP, ADIFF, GFR #### [address] [address] CO2 [Moles/Vol] 32 mmol/L Normal 22-32 [facility] Comment on above: Performed By: #### C BC, ANEU, BMP, ADIFF, GFR #### [address] [address] Creatinine [Mass/Vol] 0.71 mg/dL Normal 0.50-1.20 [facility] Comment on above: Result Comment: Test ing performed on Content [employer] analyzer using enzymatic creatinine methodology. Performed By: #### C BC, ANEU, BMP, ADIFF, GFR #### [address] [address] Electrolyte Balance 4.0 mEq/L Normal 4.0-15.0 [facility] Comment on above: Performed By: #### C BC, ANEU, BMP, ADIFF, GFR #### [address] [address] Glucose [Mass/Vol] 104 mg/dL Normal 70-110 [facility] Comment on above: Performed By: #### C BC, ANEU, BMP, ADIFF, GFR #### [place] [id number] Potassium [Moles/Vol] 4.3 mmol/L Normal 3.5-5.0 [facility] Comment on above: Performed By: #### C BC, ANEU, BMP, ADIFF, GFR #### [place] [id number] Sodium [Moles/Vol] 141 mmol/L Normal 136-145 [facility] Comment on above: Performed By: #### C BC, ANEU, BMP, ADIFF, GFR #### [address] [address] Urea nitrogen [Mass/Vol] 13.0 mg/dL Normal 8.0-22.0 [facility] Comment on above: Performed By: #### C BC, ANEU, BMP, ADIFF, GFR #### [address] [address] CBCon 01-06-2025 Erythrocyte distribution width (RBC) [Ratio] 18.2 % High 11.5-15.5 [facility] Comment on above: Performed By: #### C BC, ANEU, BMP, ADIFF, GFR #### [place] [address] Hematocrit (Bld) [Volume fraction] 30.2 % Low 34.0-46.0 [facility] Comment on above: Performed By: #### C BC, ANEU, BMP, ADIFF, GFR #### [place] [address] Hgb 9.8 G/dL Low 12.0-16.0 [facility] Comment on above: Performed By: #### C BC, ANEU, BMP, ADIFF, GFR #### [place] [address] MCH (RBC) [Entitic mass] 28.1 pg Normal 27.0-33.0 [facility] Comment on above: Performed By: #### C BC, ANEU, BMP, ADIFF, GFR #### [place] [address] MCHC 32.3 G/dL Normal 32.0-36.0 [facility] Comment on above: Performed By: #### C BC, ANEU, BMP, ADIFF, GFR #### [place] [address] MCV (RBC) [Entitic vol] 86.9 fL Normal 80.0-99.0 [facility] Comment on above: Performed By: #### C BC, ANEU, BMP, ADIFF, GFR #### [place] [address] Platelet 294 10 3/mcL Normal 150-450 [facility] Comment on above: Performed By: #### C BC, ANEU, BMP, ADIFF, GFR #### [place] [address] Platelet mean volume (Bld) [Entitic vol] 8.3 fL Normal 6.6-10.5 [facility] Comment on above: Performed By: #### C BC, ANEU, BMP, ADIFF, GFR #### [place] [address] RBC 3.48 10 6/mcL Low 4.10-5.30 [facility] Comment on above: Performed By: #### C BC, ANEU, BMP, ADIFF, GFR #### [facility] [address] [place] [address] WBC 11.7 10 3/mcL High 4.5-10.8 [facility] Comment on above: Performed By: #### C BC, ANEU, BMP, ADIFF, GFR #### [facility] [address] [place] [address] LABORATORYOrdered By: SYSTEM SYSTEM on 01-06-2025 Calcium [Mass/Vol] 9.3 mg/dL Normal 8.7 - 10. 4 mg/dL ADM SS Chloride [Moles/Vol] 105 mmol/L Normal 98 - 11 0 mEq/L ADM SS CO2 [Moles/Vol] 32 mmol/L Normal 22 - 32 mEq/L AH ADM SS Creatinine [Mass/Vol] 0.71 mg/dL Normal 0.50 - 1.20 mg/dL AH ADM SS Comment on above: Interpretive Data: T esting performed on [employer] analyzer using enzymatic creatinine methodology. Electrolyte Balance [...] Basophil, Absolute 0.1 10 3/mcL Normal 0.0-0.3 [facility] Comment on above: Performed By: #### A DIFF, ANEU, CBC #### [address] [address] Basophils/100 WBC (Bld) 1.0 % Normal 0.0-2.5 [facility] Comment on above: Performed By: #### A DIFF, ANEU, CBC #### [address] [address] Eosinophil, Absolute 0.4 10 3/mcL Normal 0.0-0.7 [facility] Comment on above: Performed By: #### A DIFF, ANEU, CBC #### [address] [address] Eosinophils/100 WBC (Bld) 3.4 % Normal 0.0-6.0 [facility] Comment on above: Performed By: #### A DIFF, ANEU, CBC #### [address] [address] Lymphocyte, Absolute 3.0 10 3/mcL Normal 0.9-4.3 [facility] Comment on above: Performed By: #### A DIFF, ANEU, CBC #### [address] [address] Lymphocytes/100 WBC (Bld) 26.6 % Normal 20.0-40.0 [facility] Comment on above: Performed By: #### A DIFF, ANEU, CBC #### [address] [address] Monocyte, Absolute 0.7 10 3/mcL Normal 0.1-1.4 [facility] Comment on above: Performed By: #### A DIFF, ANEU, CBC #### [address] [address] Monocytes/100 WBC (Bld) 6.5 % Normal 2.0-13.0 [facility] Comment on above: Performed By: #### A DIFF ANEU, CBC #### [address] [address] Neutrophils/100 WBC (Bld) 62.5 % Normal 50.0-75.0 [facility] Comment on above: Performed By: #### A DIFF ANEU, CBC #### [address] [address] .GFRon 01-04-2025 Estimated Glomerular Filtration Rate 110 ml/min/1.73sqm Normal [facility] Comment on above: Result Comment: [...] By: #### A DIFF ANEU, CBC #### [address] [address] .NEUABSon 01-04-2025 Neutrophil, Absolute 7.0 10 3/mcL Normal 2.3-8.1 [facility] Comment on above: Performed By: #### A DIFF ANEU, CBC #### [address] [address] BMPon 01-04-2025 BUN/Creatinine Ratio 24.1 ratio High 10.0-22.0 [facility] Comment on above: Performed By: #### A DIFF ANEU, CBC #### [address] [address] Calcium [Mass/Vol] 8.7 mg/dL Normal 8.7-10.4 [facility] Comment on above: Performed By: #### A DIFF, ANEU, CBC #### [address] [address] Chloride [Moles/Vol] 106 mmol/L Normal 98-110 [facility] Comment on above: Performed By: #### A DIFF, ANEU, CBC #### [address] [address] CO2 [Moles/Vol] 29 mmol/L Normal 22-32 [facility] Comment on above: Performed By: #### A DIFF, ANEU, CBC #### [address] [address] Creatinine [Mass/Vol] 0.58 mg/dL Normal 0.50-1.20 [facility] Comment on above: Result Comment: Test ing performed on [employer] analyzer using enzymatic creatinine methodology. Performed By: #### A DIFF ANEU, CBC #### [address] [address] Electrolyte Balance 5.0 mEq/L Normal 4.0-15.0 [facility] Comment on above: Performed By: #### A DIFF, ANEU, CBC #### [address] [address] Glucose [Mass/Vol] 99 mg/dL Normal 70-110 [facility] Comment on above: Performed By: #### A DIFF, ANEU, CBC #### [address] [address] Potassium [Moles/Vol] 4.0 mmol/L Normal 3.5-5.0 [facility] Comment on above: Performed By: #### A DIFF, ANEU, CBC #### [address] [address] Sodium [Moles/Vol] 140 mmol/L Normal 136-145 [facility] Comment on above: Performed By: #### A DIFF, ANEU, CBC #### [address] [address] Urea nitrogen [Mass/Vol] 14.0 mg/dL Normal 8.0-22.0 [facility] Comment on above: Performed By: #### A DIFF, ANEU, CBC #### [address] [address] CBCon 01-04-2025 Erythrocyte distribution width (RBC) [Ratio] 17.0 % High 11.5-15.5 [facility] Comment on above: Performed By: #### A DIFF, ANEU, CBC #### [place] [address] Hematocrit (Bld) [Volume fraction] 29.4 % Low 34.0-46.0 [facility] Comment on above: Performed By: #### A DIFF, ANEU, CBC #### [place] [address] Hgb 9.3 G/dL Low 12.0-16.0 [facility] Comment on above: Performed By: #### A DIFF, ANEU, CBC #### [place] [address] MCH (RBC) [Entitic mass] 27.6 pg Normal 27.0-33.0 [facility] Comment on above: Performed By: #### A DIFF, ANEU, CBC #### [place] [address] MCHC 31.8 G/dL Low 32.0-36.0 [facility] Comment on above: Performed By: #### A DIFF, ANEU, CBC #### [place] [address] MCV (RBC) [Entitic vol] 86.8 fL Normal 80.0-99.0 [facility] Comment on above: Performed By: #### A DIFF, ANEU, CBC #### [place] [address] Platelet 264 10 3/mcL Normal 150-450 [facility] Comment on above: Performed By: #### A DIFF, ANEU, CBC #### [place] [address] Platelet mean volume (Bld) [Entitic vol] 8.3 fL Normal 6.6-10.5 [facility] Comment on above: Performed By: #### A DIFF, ANEU, CBC #### [place] [address] RBC 3.39 10 6/mcL Low 4.10-5.30 [facility] Comment on above: Performed By: #### A DIFF, ANEU, CBC #### [address] [address] WBC 11.3 10 3/mcL High 4.5-10.8 [facility] Comment on above: Performed By: #### A DIFF, ANEU, CBC #### [address] [address] .Auto Diffon 01-03-2025 Basophil, Absolute 0.1 10 3/mcL Normal 0.0-0.3 [facility] Comment on above: Performed By: #### A DIFF, ANEU, CBC #### [address] [address] Basophils/100 WBC (Bld) 0.8 % Normal 0.0-2.5 [facility] Comment on above: Performed By: #### A DIFF, ANEU, CBC #### [address] [address] Eosinophil, Absolute 0.5 10 3/mcL Normal 0.0-0.7 [facility] Comment on above: Performed By: #### A DIFF, ANEU, CBC #### [address] [address] Eosinophils/100 WBC (Bld) 3.4 % Normal 0.0-6.0 [facility] Comment on above: Performed By: #### A DIFF, ANEU, CBC #### [address] [address] Lymphocyte, Absolute 3.6 10 3/mcL Normal 0.9-4.3 [facility] Comment on above: Performed By: #### A DIFF, ANEU, CBC #### [address] [address] Lymphocytes/100 WBC (Bld) 26.0 % Normal 20.0-40.0 [facility] Comment on above: Performed By: #### A DIFF, ANEU, CBC #### [address] [address] Monocyte, Absolute 0.9 10 3/mcL Normal 0.1-1.4 [facility] Comment on above: Performed By: #### A DIFF, ANEU, CBC #### [address] [address] Monocytes/100 WBC (Bld) 6.2 % Normal 2.0-13.0 [facility] Comment on above: Performed By: #### A DIFF ANEU, CBC #### [address] [address] Neutrophils/100 WBC (Bld) 63.6 % Normal 50.0-75.0 [facility] Comment on above: Performed By: #### A DIFF ANEU, CBC #### [address] [address] .GFRon 01-03-2025 Estimated Glomerular Filtration Rate 109 ml/min/1.73sqm Normal [facility] Comment on above: Result Comment: [...] By: #### A JARRET ANEU, CBC #### [address] [address] .NEUABSon 01-03-2025 Neutrophil, Absolute 8.9 10 3/mcL High 2.3-8.1 [facility] Comment on above: Performed By: #### A DIFF ANEU, CBC #### [address] [address] APTTon 01-03-2025 aPTT Coag (Bld) [Time] 31.5 s Normal 25.0-35.0 [facility] Comment on above: Result Comment: For Heparin anticoagulation therapy, the recommended therapeutic range is: 54-77 seconds (APTT Correlation with Anti-Xa therapeutic range of 0.3-0.7 units/ml). PLEASE REFERENCE THE PHARMACY PROTOCOL FOR DOSING. Performed By: #### A DIFF, ANEU, CBC #### [address] [address] BMPon 01-03-2025 BUN/Creatinine Ratio 26.2 ratio High 10.0-22.0 [facility] MAIN Comment on above: Performed By: #### A DIFF, ANEU, CBC #### [address] [address] Calcium [Mass/Vol] 9.5 mg/dL Normal 8.7-10.4 [facility] MAIN Comment on above: Performed By: #### A DIFF, ANEU, CBC #### [address] [address] Chloride [Moles/Vol] 105 mmol/L Normal 98-110 [facility] MAIN Comment on above: Performed By: #### A DIFF, ANEU, CBC #### [address] [address] CO2 [Moles/Vol] 29 mmol/L Normal 22-32 [facility] MAIN Comment on above: Performed By: #### A DIFF, ANEU, CBC #### [address] [address] Creatinine [Mass/Vol] 0.61 mg/dL Normal 0.50-1.20 [facility] MAIN Comment on above: Result Comment: Test ing performed on Content [employer] analyzer using enzymatic creatinine methodology. Performed By: #### A DIFF, ANEU, CBC #### [address] [address] Electrolyte Balance 6.0 mEq/L Normal 4.0-15.0 [facility] MAIN Comment on above: Performed By: #### A DIFF, ANEU, CBC #### [address] [address] Glucose [Mass/Vol] 99 mg/dL Normal 70-110 [facility] MAIN Comment on above: Performed By: #### A DIFF, ANEU, CBC #### [address] [address] Potassium [Moles/Vol] 4.2 mmol/L Normal 3.5-5.0 [facility] MAIN Comment on above: Performed By: #### A DIFF, ANEU, CBC #### [address] [address] Sodium [Moles/Vol] 140 mmol/L Normal 136-145 [facility] MAIN Comment on above: Performed By: #### A DIFF, ANEU, CBC #### [address] [address] Urea nitrogen [Mass/Vol] 16.0 mg/dL Normal 8.0-22.0 [facility] MAIN Comment on above: Performed By: #### A DIFF, ANEU, CBC #### [address] [address] CBCon 01-03-2025 Erythrocyte distribution width (RBC) [Ratio] 17.1 % High 11.5-15.5 [facility] MAIN Comment on above: Performed By: #### B MP, CBC, ANEU, MG, GFR, ADIFF #### [place] [address] Hematocrit (Bld) [Volume fraction] 28.9 % Low 34.0-46.0 [facility] MAIN Comment on above: Performed By: #### B MP, CBC, ANEU, MG, GFR, ADIFF #### [place] [address] Hgb 9.4 G/dL Low 12.0-16.0 [facility] MAIN Comment on above: Performed By: #### B MP, CBC, ANEU, MG, GFR, ADIFF #### [place] [id number] MCH (RBC) [Entitic mass] 27.7 pg Normal 27.0-33.0 [facility] MAIN Comment on above: Performed By: #### B MP, CBC, ANEU, MG, GFR, ADIFF #### [place] [id number] MCHC 32.4 G/dL Normal 32.0-36.0 [facility] MAIN Comment on above: Performed By: #### B MP, CBC, ANEU, MG, GFR, ADIFF #### [place] [address] MCV (RBC) [Entitic vol] 85.7 fL Normal 80.0-99.0 [facility] MAIN Comment on above: Performed By: #### B MP, CBC, ANEU, MG, GFR, ADIFF #### [place] [address] Platelet 272 10 3/mcL Normal 150-450 [facility] MAIN Comment on above: Performed By: #### B MP, CBC, ANEU, MG, GFR, ADIFF #### [place] [address] Platelet mean volume (Bld) [Entitic vol] 8.8 fL Normal 6.6-10.5 [facility] MAIN Comment on above: Performed By: #### B MP, CBC, ANEU, MG, GFR, ADIFF #### [place] [address] RBC 3.38 10 6/mcL Low 4.10-5.30 [facility] MAIN Comment on above: Performed By: #### B MP, CBC, ANEU, MG, GFR, ADIFF #### [place] [address] WBC 14.0 10 3/mcL High 4.5-10.8 [facility] MAIN Comment on above: Performed By: #### B MP, CBC, ANEU, MG, GFR, ADIFF #### [place] [address] FIBon 01-03-2025 Fibrinogen >700 High 250-560 [facility] MAIN Comment on above: Performed By: #### A DIFF, ANEU, CBC #### [place] [address] LABORATORYOrdered By: SYSTEM SYSTEM on 01-03-2025 aPTT [...] on above: Interpretive Data: T luis a [employer] (CHEST, 1991, 102:312S-25S) [...] 01-03-2025 Magnesium [Mass/Vol] 2.0 mg/dL Normal 1.6-2.4 [facility] MAIN Comment on above: Performed By: #### A DIFF, ANEU, CBC #### [place] [address] PROon 01-03-2025 INR Coag (PPP) [Relative time] 1.0 {INR} Normal [facility] MAIN Comment on above: Result Comment: The [employer] (CHEST, 1991, 102:312S-25S) recommended therapeutic range for oral anticoagulant therapy is: LOW RISK: Prophylaxis of venous thrombosis INR: 2.0-3.0 Treatment of pulmonary embolism 2.0-3.0 Prevention of systemic embolism 2.0-3.0 HIGH RISK: Mechanical prosthetic valves 2.5-3.5 Performed By: #### P RO #### [address] [address] PT Coag (PPP) [Time] 11.6 s Normal 9.0-14.4 [facility] MAIN Comment on above: Result Comment: Effe ctive 02/26/08, Protime results may be affected by some antibiotics (i.e. Ciprofloxacin, Azithromycin, Bactrim) which may potentiate the action of oral anticoagulants, with further increases in Protime/INR. Performed By: #### P RO #### [facility] [address] [place] [id number] .Auto Diffon 01-02-2025 Basophil, Absolute 0.1 10 3/mcL Normal 0.0-0.3 [facility] Comment on above: Performed By: #### M G, BMP, CBC, GFR, ANEU, ADIFF #### [address] [address] Basophils/100 WBC (Bld) 0.7 % Normal 0.0-2.5 [facility] Comment on above: Performed By: #### M G, BMP, CBC, GFR, ANEU, ADIFF #### [address] [address] Eosinophil, Absolute 0.4 10 3/mcL Normal 0.0-0.7 [facility] Comment on above: Performed By: #### M G, BMP, CBC, GFR, ANEU, ADIFF #### [address] [address] Eosinophils/100 WBC (Bld) 3.5 % Normal 0.0-6.[address] [facility] Comment on above: Performed By: #### M G, BMP, CBC, GFR, ANEU, ADIFF #### [address] [address] Lymphocyte, Absolute 3.3 10 3/mcL Normal 0.9-4.3 [facility] Comment on above: Performed By: #### M G, BMP, CBC, GFR, ANEU, ADIFF #### [address] [address] Lymphocytes/100 WBC (Bld) 25.5 % Normal 20.0-40.[address] [facility] Comment on above: Performed By: #### M G, BMP, CBC, GFR, ANEU, ADIFF #### [address] [address] Monocyte, Absolute 0.7 10 3/mcL Normal 0.1-1.4 [facility] Comment on above: Performed By: #### M G, BMP, CBC, GFR, ANEU, ADIFF #### [address] [address] Monocytes/100 WBC (Bld) 5.2 % Normal 2.0-13.0 [facility] Comment on above: Performed By: #### M G, BMP, CBC, GFR, ANEU, ADIFF #### [address] [address] Neutrophils/100 WBC (Bld) 65.1 % Normal 50.0-75.[address] [facility] Comment on above: Performed By: #### M G, BMP, CBC, GFR, ANEU, ADIFF #### [address] [address] .GFRon 01-02-2025 Estimated Glomerular Filtration Rate 109 ml/min/1.73sqm Normal [facility] Comment on above: Result Comment: Stages [...] G, BMP, CBC, GFR, ANEU, ADIFF #### [address] [address] .NEUABSon 01-02-2025 Neutrophil, Absolute 8.3 10 3/mcL High 2.3-8.1 [facility] Comment on above: Performed By: #### M G, BMP, CBC, GFR, ANEU, ADIFF #### [address] [address] BMPon 01-02-2025 BUN/Creatinine Ratio 25 ratio Normal 7-27 [facility] Comment on above: Performed By: #### M G, BMP, CBC, GFR, ANEU, ADIFF #### [address] [address] Calcium [Mass/Vol] 8.6 mg/dL Normal 8.4-10.2 [facility] Comment on above: Performed By: #### M G, BMP, CBC, GFR, ANEU, ADIFF #### [place] [id number] Chloride [Moles/Vol] 108 mmol/L High 98-107 [facility] Comment on above: Performed By: #### M G, BMP, CBC, GFR, ANEU, ADIFF #### [place] [address] CO2 [Moles/Vol] 30 mmol/L High 22-[address] [facility] Comment on above: Performed By: #### M G, BMP, CBC, GFR, ANEU, ADIFF #### [place] [address] Creatinine [Mass/Vol] 0.61 mg/dL Normal 0.51-0.95 [facility] Comment on above: Performed By: #### M G, BMP, CBC, GFR, ANEU, ADIFF #### [place] [address] Electrolyte Balance 5.0 mEq/L Normal 4.0-15.0 [facility] Comment on above: Performed By: #### M G, BMP, CBC, GFR, ANEU, ADIFF #### [place] [address] Glucose [Mass/Vol] 121 mg/dL High 70-105 [facility] Comment on above: Performed By: #### M G, BMP, CBC, GFR, ANEU, ADIFF #### [place] [address] Potassium [Moles/Vol] 4.0 mmol/L Normal 3.5-5.1 [facility] Comment on above: Performed By: #### M G, BMP, CBC, GFR, ANEU, ADIFF #### [address] [address] Sodium [Moles/Vol] 143 mmol/L Normal 136-145 [facility] Comment on above: Performed By: #### M G, BMP, CBC, GFR, ANEU, ADIFF #### [address] [address] Urea nitrogen [Mass/Vol] 15 mg/dL Normal 7-[address] [facility] Comment on above: Performed By: #### M G, BMP, CBC, GFR, ANEU, ADIFF #### [address] [address] CBCon 01-02-2025 Erythrocyte distribution width (RBC) [Ratio] 16.6 % High 11.5-15.[address] [facility] Comment on above: Performed By: #### M G, BMP, CBC, GFR, ANEU, ADIFF #### [place] [id number] Hematocrit (Bld) [Volume fraction] 27.2 % Low 34.0-46.[address] [facility] Comment on above: Performed By: #### M G, BMP, CBC, GFR, ANEU, ADIFF #### [place] [id number] Hgb 8.8 G/dL Low 12.0-16.[address] [facility] Comment on above: Performed By: #### M G, BMP, CBC, GFR, ANEU, ADIFF #### [address] [address] MCH (RBC) [Entitic mass] 27.8 pg Normal 27.0-33.[address] [facility] Comment on above: Performed By: #### M G, BMP, CBC, GFR, ANEU, ADIFF #### [place] [id number] MCHC 32.5 G/dL Normal 32.0-36.[address] [facility] Comment on above: Performed By: #### M G, BMP, CBC, GFR, ANEU, ADIFF #### [place] [id number] MCV (RBC) [Entitic vol] 85.6 fL Normal 80.0-99.0 [facility] Comment on above: Performed By: #### M G, BMP, CBC, GFR, ANEU, ADIFF #### [address] [address] Platelet 233 10 3/mcL Normal 150-[address] [facility] Comment on above: Performed By: #### M G, BMP, CBC, GFR, ANEU, ADIFF #### [address] [address] Platelet mean volume (Bld) [Entitic vol] 8.9 fL Normal 6.6-10.[address] [facility] Comment on above: Performed By: #### M G, BMP, CBC, GFR, ANEU, ADIFF #### [address] [address] RBC 3.17 10 6/mcL Low 4.10-5.[address] [facility] Comment on above: Performed By: #### M G, BMP, CBC, GFR, ANEU, ADIFF #### [address] [address] WBC 12.8 10 3/mcL High 4.5-10.[address] [facility] Comment on above: Performed By: #### M G, BMP, CBC, GFR, ANEU, ADIFF #### [address] [address] MGon 01-02-2025 Magnesium [Mass/Vol] 2.0 mg/dL Normal 1.8-2.4 [facility] Comment on above: Performed By: #### M G, BMP, CBC, GFR, ANEU, ADIFF #### [address] [address] MRI SPINE LUMBAR W/O CONTRAS Ton 01-02-2025 [...] 5:30:09 AM Ordering Provider: KEATON ETIENNE Normal [facility] .Auto Diffon 01-01-2025 Basophil, Absolute 0.1 10 3/mcL Normal 0.0-0.3 [facility] Comment on above: Performed By: #### U AMIC, UA #### [address] [address] Basophils/100 WBC (Bld) 0.8 % Normal 0.0-2.5 [facility] Comment on above: Performed By: #### U AMIC, UA #### [address] [address] Eosinophil, Absolute 0.2 10 3/mcL Normal 0.0-0.7 [facility] Comment on above: Performed By: #### U AMIC, UA #### [address] [address] Eosinophils/100 WBC (Bld) 1.1 % Normal 0.0-6.[address] [facility] Comment on above: Performed By: #### U AMIC, UA #### [place] [address] [place], [place] [address] Lymphocyte, Absolute 2.4 10 3/mcL Normal 0.9-4.3 [facility] Comment on above: Performed By: #### U AMIC, UA #### [place] [address] [place], [place] [address] Lymphocytes/100 WBC (Bld) 14.6 % Low 20.0-40.[address] [facility] Comment on above: Performed By: #### U AMIC, UA #### [place] [address] [place], [place] [address] Monocyte, Absolute 0.9 10 3/mcL Normal 0.1-1.4 [facility] Comment on above: Performed By: #### U AMIC, UA #### [place] [address] [place], [place] [address] Monocytes/100 WBC (Bld) 5.3 % Normal 2.0-13.0 [facility] Comment on above: Performed By: #### U AMIC, UA #### [address] [address] Neutrophils/100 WBC (Bld) 78.2 % High 50.0-75.[address] [facility] Comment on above: Performed By: #### U AMIC, UA #### [address] [address] .GFRon 01-01-2025 Estimated Glomerular Filtration Rate 106 ml/min/1.73sqm Normal [facility] Comment on above: Result Comment: Stages [...] Performed By: #### U AMIC, UA #### [address] [address] .MDWon 01-01-2025 Monocyte Distribution Width Not performed Normal 0.00-20.[address] [facility] Comment on above: Result Comment: MDW testing performed only on adult ER patients between the ages of 18-89 years. Performed By: #### U AMIC, UA #### [address] [address] .NEUABSon 01-01-2025 Neutrophil, Absolute 12.8 10 3/mcL High 2.3-8.1 [facility] Comment on above: Performed By: #### U AMIC, UA #### [address] [address] BMPon 01-01-2025 BUN/Creatinine Ratio 21 ratio Normal 7-27 [facility] Comment on above: Performed By: #### U AMIC, UA #### [address] [address] Calcium [Mass/Vol] 8.6 mg/dL Normal 8.4-10.2 [facility] Comment on above: Performed By: #### U AMIC, UA #### [address] [address] Chloride [Moles/Vol] 104 mmol/L Normal 98-107 [facility] Comment on above: Performed By: #### U AMIC, UA #### [address] [address] CO2 [Moles/Vol] 30 mmol/L High 22-[address] [facility] Comment on above: Performed By: #### U AMIC, UA #### [address] [address] Creatinine [Mass/Vol] 0.67 mg/dL Normal 0.51-0.95 [facility] Comment on above: Performed By: #### U AMIC, UA #### [address] [address] Electrolyte Balance 5.0 mEq/L Normal 4.0-15.0 [facility] Comment on above: Performed By: #### U AMIC, UA #### [address] [address] Glucose [Mass/Vol] 114 mg/dL High 70-105 [facility] Comment on above: Performed By: #### U AMIC, UA #### [address] [address] Potassium [Moles/Vol] 4.4 mmol/L Normal 3.5-5.1 [facility] Comment on above: Performed By: #### U AMIC, UA #### [address] [address] Sodium [Moles/Vol] 139 mmol/L Normal 136-145 [facility] Comment on above: Performed By: #### U AMIC, UA #### [address] [address] Urea nitrogen [Mass/Vol] 14 mg/dL Normal 7-[address] [facility] Comment on above: Performed By: #### U AMIC, UA #### [address] [address] CBCon 01-01-2025 Erythrocyte distribution width (RBC) [Ratio] 16.6 % High 11.5-15.[address] [facility] Comment on above: Performed By: #### U AMIC, UA #### [address] [address] Hematocrit (Bld) [Volume fraction] 30.7 % Low 34.0-46.[address] [facility] Comment on above: Performed By: #### U AMIC, UA #### [address] [address] Hgb 10.0 G/dL Low 12.0-16.[address] [facility] Comment on above: Performed By: #### U AMIC, UA #### [address] [address] MCH (RBC) [Entitic mass] 27.7 pg Normal 27.0-33.[address] [facility] Comment on above: Performed By: #### U AMIC, UA #### [address] [address] MCHC 32.5 G/dL Normal 32.0-36.[address] [facility] Comment on above: Performed By: #### U AMIC, UA #### [address] [address] MCV (RBC) [Entitic vol] 85.4 fL Normal 80.0-99.0 [facility] Comment on above: Performed By: #### U AMIC, UA #### [address] [address] Platelet 273 10 3/mcL Normal 150-[address] [facility] Comment on above: Performed By: #### U AMIC, UA #### [address] [address] Platelet mean volume (Bld) [Entitic vol] 8.6 fL Normal 6.6-10.[address] [facility] Comment on above: Performed By: #### U AMIC, UA #### [address] [address] RBC 3.60 10 6/mcL Low 4.10-5.[address] [facility] Comment on above: Performed By: #### U AMIC, UA #### [address] [address] WBC 16.3 10 3/mcL High 4.5-10.[address] [facility] Comment on above: Performed By: #### U AMIC, UA #### [address] [address] [address] THORAX W/ CONTRASTon 12-13 CT THORAX [...] 12:01:53 PM Ordering Provider: CAREY TAN Normal [facility] UAon 01-01-2025 Color (U) Yellow Normal [facility] Comment on above: Performed By: #### U A #### [address] [address] Glucose (U) [Mass/Vol] Negative Normal Negative [facility] Comment on above: Performed By: #### U A #### [address] [address] Ketones Ql (U) Negative Normal Negative [facility] Comment on above: Performed By: #### U A #### [address] [address] UA Appear Clear Normal Clear [facility] Comment on above: Performed By: #### U A #### [place] [address] UA Blood Negative Normal Negative [facility] Comment on above: Performed By: #### U A #### [place] [address] UA Leuk Est Negative Normal Negative [facility] Comment on above: Performed By: #### U A #### [place] [address] UA Nitrite Negative Normal Negative [facility] Comment on above: Performed By: #### U A #### [place] [address] UA pH 7.5 Normal 5.0 - 8.[address] [facility] Comment on above: Performed By: #### U A #### [place] [address] UA Protein Negative Normal Negative [facility] Comment on above: Performed By: #### U A #### [place] [address] UA Spec Grav 1.010 Abnormal 1.015-1.[address] [facility] Comment on above: Performed By: #### U A #### [place] [address] UA Specimen Type Clean Catch Normal [facility] Comment on above: Performed By: #### U A #### [place] [address] UA Urobilinogen 0.2 E.U./dL Normal 0.2-1.[address] [facility] Comment on above: Performed By: #### U A #### [place] [address] Urobilinogen (U) [Mass/Vol] Negative Normal Negative [facility] Comment on above: Performed By: #### U A #### [place] [address] ED NOTEon 12-28-2024 ED NOTE HNO ID: [id number] Author: DERRICK LUNA RN Service: ? 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 Discharge paperwork and follow up discussed. [facility] ED NOTE HNO ID: [id number] Author: DERRICK LUNA RN Service: ? Author Type: Registered Nurse Type: ED Notes Filed: 12/28/2024 14:02 Note Text: Assisted pt to bathroom. Pt able to pivot and stand with minimal assistance. Able to walk a few steps with walker but continues to complain of pain. Dr Noble aware and in talking with pt. [facility] ED NOTE HNO ID: [id number] Author: DERRICK LUNA RN Service: ? Author Type: Registered Nurse Type: ED Notes Filed: 12/28/2024 12:59 Note Text: Pt arrived via medic with c/o leg pain. Pt was here other day for. States toradol was helpful before. States she took percocet earlier for without relief. [place], warm, dry. No apparent distress. Alert and oriented. 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 Normal [facility] ALLIED HEALTHon 12-25-2024 ALLIED HEALTH HNO ID: [id number] Author: CLARISSA OWEN RT(R) Service: Radiology Author Type: Strip Cutting Machine Operator Type: Allied Health Filed: 12/25/2024 16:32 Note [...] PATIENT PRESENTS WITH AN IMPLANTABLE OR ATTACHED SALES PLANNING MANAGER: No RADIOLOGY DEPARTMENT: CT; Exam(s) Completed: Abdomen/Pelvis PERIPHERAL IV DATA: Not applicable SIGNED BY: GARDENIA Owens) / Kaushik Hays December 25, 2024 4:32 PM Normal [facility] ALLIED HEALTH HNO ID: [id number] Author: CLARISSA OWEN RT(R) Service: Radiology Author Type: Strip Cutting Machine Operator Type: Allied Health Filed: 12/25/2024 13:43 Note [...] PATIENT PRESENTS WITH AN IMPLANTABLE OR ATTACHED SALES PLANNING MANAGER: No RADIOLOGY DEPARTMENT: CT; Exam(s) Completed: Spine PERIPHERAL IV DATA: Not applicable SIGNED BY: GARDENIA Owens) / Kaushik Hays December 25, 2024 1:43 PM [facility] CT ABD/PEL WO IVCONon 2024 CT ABD/PEL WO IVCON * * *Final Report* * * DATE OF EXAM: Dec 25 2024 4:24PM [facility] 0531 - CT ABD/PEL WO IVCON / [...] No additional findings. IMPRESSION: No acute findings. Banana Ripening Room Supervisor: DEB Transcribe Date/Time: Dec 25 2024 4:48P Dictated by : OVIDIO NELSON MD This examination was interpreted and the report reviewed and electronically signed by: OVIDIO NELSON MD on Dec 25 2024 4:54PM EST [id number] Normal [facility] CT LUMBAR SPINE WO IVCONon 0 12-25-2024 CT LUMBAR SPINE WO IVCON * * *Final Report* * * DATE OF EXAM: Dec 25 2024 1:42PM [facility] 0508 - CT LUMBAR SPINE WO IVCON [...] are 5 lumbar-type vertebrae. Anatomic variant: None. Staff Nurse (topogram) images: No additional findings. Limitations: Body [...] be communicated with the ordering provider via [employer] staff message or phone message by [employer] within 2 business days of report finalization. --END OF FINDING-- Banana Ripening Room Supervisor: DEB Transcribe Date/Time: Dec 25 2024 2:31P Dictated by : FEMI DAVIDSON MD This examination was interpreted and the report reviewed and electronically signed by: FEMI DAVIDSON MD on Dec 25 2024 2:48PM EST [id number] ACTIONABLE Invalid Interpretation Code [facility] ED NOTEon 12-25-2024 ED NOTE HNO ID: [id number] Author: OVIDIO SCOTT RN Service: ? Author Type: Registered Nurse Type: ED Notes Filed: 12/30/2024 10:46 Note Text: Chart accessed on 12-30-24 for chart audit pi [facility] ED NOTE HNO ID: [id number] Author: TRAVIS KELLY RN Service: ? Author Type: Registered Nurse Type: ED Notes Filed: 12/25/2024 17:41 Note Text: D/c instructions reviewed with pt who verbalized understanding. Pt's vss and left ED in wheelchair with family [facility] ED NOTE HNO ID: [id number] Author: DERRICK LUNA RN Service: ? Author Type: Registered Nurse Type: ED Notes Filed: 12/25/2024 16:20 Note Text: Assisted pt to bathroom. Pt states still in pain. [facility] ED NOTE HNO ID: [id number] Author: TRAVIS KELLY RN Service: ? Author [...] robaxin at 1045. Will continue to monitor. [facility] ED PROV NOTEon 12-25-2024 ED PROV NOTE HNO ID: [id number] Author: ANDERSON BEEBE MD Service: Emergency Medicine [...] Patient is following outpatient pain management in [place] however does not have an appointment for [...] (more content not included)... Normal [facility] Cardiology Visit Reporton Cardiology Visit Report [facility] [address] [place] [address] OFFICE VISIT Date of Service: 05/16/24 MR#: [id number] Acct: [id number] Name: MITCHELL BROOKS Rep #: [id number] : 1975 Provider: Dr. Yung Thapa MD Age/Sex: 49/F Location: [facility] Status: Signed HPI HPI History of Present Illness Details: This patient is here for follow-up visit. According to her, she gets sharp stabbing chest pain whenever she is emotionally upset. This lasts for a second or 2 only. According to her, lately she has been very stressed. Her is in penitentiary and her nephew got out of penitentiary only today. Occasionally feels lightheaded and dizzy. [...] room air Intake Visit Reasons: 5 M [employer] Reeds Cutter Required: No Accompanied by: Nephew Is patient [...] HFA aerosol inhaler (Flovent HFA) glucosamine 750 [id number] 2-C 1 tab PO DAILY 05/06/21 05/16/24 [...] Yes (trip/balance; hamstring tears bilat; April 05) [facility] Medical History RAFIA (acute kidney injury) Anemia Anxiety Arthritis Asthma Back pain Bilateral mark (more content not included)... Normal [facility] ED NOTEon 04-05-2024 ED NOTE HNO ID: [id number] Author: VIKTORIA DAY RN Service: ? Author [...] DATE: April 06, 2024 TIME: 12:23 PM [facility] ED NOTE HNO ID: [id number] Author: PATRICA ORDOÑEZ RN Service: Emergency Medicine Author Type: Registered Nurse Type: ED Notes Filed: 04/05/2024 20:31 Note Text: Pt up to bathroom, walker used, gait steady, able to get self back to bed afterwards [facility] ED NOTE HNO ID: [id number] Author: PATRICA ORDOÑEZ RN Service: Emergency Medicine Author Type: Registered Nurse Type: ED Notes Filed: 04/05/2024 19:40 Note Text: Patient informed: the name of medication, why we are giving it, possible side effects, what they may expect to feel, and was offered a chance to ask questions, prior to the administration of percocet and gabapentin [facility] ED NOTE HNO ID: [id number] Author: ELTON TEAGUE RN Service: Emergency Medicine Author Type: Registered Nurse Type: ED Notes Filed: 04/05/2024 19:02 Note Text: Report to Patrica FERNÁNDEZ [facility] ED NOTE HNO ID: [id number] Author: ELTON TEAGUE RN Service: Emergency Medicine Author Type: Registered Nurse Type: ED Notes Filed: 04/05/2024 16:55 Note Text: PT BROUGHT BY EMS FOR FALL PT DENIES HITTING HEAD OR PASSING OUT STATES SHE FELL STRAIGHT DOWN ON TO HER KNEES. PT IS ALERT AND ORIENTED AMBULATES FROM EMS COT TO BED. [facility] ED PROV NOTEon 04-05-2024 ED PROV NOTE HNO ID: [id number] Author: MELODIE BLANCAS MD Service: Emergency Medicine [...] HISTORY 07/20/2013: RAFIA (acute kidney injury) ([facility]) Comment: Baseline Cr 0.58 07/20 Cr 1.6 Possibly 2/2 sepsis (organ damage) as pt received 8L IVFs Making urine appropriately Plan: IVFs No date: Anxiety No date: Asthma No date: Cervical spondylosis No date: Chronic pain No date: Debility No date: HTN (hypertension) No date: Hypothyroid No date: Irritable bowel syndrome No date: Lymphedema No date: Morbid obesity ([facility]) 08/14/2012: Necrotizing fasciitis ([facility]) Comment: thigh wound 07/20/2013: Septic shock ([facility]) Comment: On Dopamine, vasopressine and NE upon [...] (more content not included)... Normal [facility] XR HIP 3V PELV+ AP/LAT [...] lower lumbar spine. No other significant abnormality. [facility] Rip[facility] Room Supervisor: DEB Transcribe Date/Time: Apr 05 2024 8:15P Dictated by : ZAKI BALDERAS MD This examination was interpreted and the report reviewed and electronically signed by: ZAKI BALDERAS MD on Apr 05 2024 8:16PM EST [id number] CN Normal [facility] XR KNEE 2V AP/LAT LTon [...] and tricompartmental osteophytosis. No other significant abnormality. [facility] Supervisor: [facility] Transcribe Date/Time: Apr 05 2024 8:18P Dictated by : ZAKI BALDERAS MD This examination was interpreted and the report reviewed and electronically signed by: ZAKI BALDERAS MD on Apr 05 2024 8:22PM EST [id number] CN Normal [facility] XR KNEE 2V AP/LAT RTon [...] and tricompartmental osteophytosis. No other significant abnormality. [facility] Supervisor: [facility] Transcribe Date/Time: Apr 05 2024 8:18P Dictated by : ZAKI BALDERAS MD This examination was interpreted and the report reviewed and electronically signed by: ZAKI BALDERAS MD on Apr 05 2024 8:22PM EST [id number] CN Normal [facility] XR LUMBAR 3V AP/LAT/L5-S1on 04-05-2024 [...] facet degenerative changes. No other significant abnormality. [facility] Room Supervisor: [facility] Transcribe Date/Time: Apr 05 2024 8:26P Dictated by : ZAKI BLADERAS MD This examination was interpreted and the report reviewed and electronically signed by: ZAKI BALDERAS MD on Apr 05 2024 8:26PM EST [id number] CN [facility] 03-25-2024 36 Name of caller: [place] Contact phone number: [phone] Relationship to Patient: patient Provider: Joyce Sierra [...] business hours to return their call: Yes [facility] 36on 10-09-2023 36 Patient is scheduled for an OV in December in [place] with Joyce Sierra [facility] 36 Name of caller: Mitchell Contact phone number: [phone] Relationship to Patient: patient Provider: [facility] Practice: Gastro Chief Complaint/Reason for Call: Pt calling to check status of new patient referral. [facility] should have sent over referral last week. Unable to see referral in patient's chart at time of all. Please advise, thank you. Best time of day caller can be reached: AM Patient advised that office/PCP has 24-48 business hours to return their call: Yes [facility] CNPNon 01-26-2023 CNPN Telephone (HEMAVN) MILLERMITCHELL MENDOZA ([id number]) 1975 F T Date Time Provider Department 01/26/23 NABILA WATSON During your visit today, we recorded the following information about you: Criss Landers 01/26/2023 3:15 PM Signed This patient was seen by Myke Ross in the ED around . Patient lives out in [place] wanting a referral placed and faxed over to [facility] Fax# [phone] Please call her if there is any [...] Fully Assessed Reason for Visit: Patient Question [9108] Cmt: Referral Prescriptions as of 01/26/2023 - [...] Status:Closed by CRISS LANDERS on 01/26/[address] [facility] CNDSon 01-14-2023 CNDS HNO ID: [id number] Author: Herb Chavarria MD Service: Hospital Medicine [...] than carbamazepine to be able to use half-way AC in this patient. Plan Metoprolol 37.5 [...] ADDITIONAL INFORMATION: Follow up with cardiology in [place] over next 3-4 weeks. Psychiatry phone number to call for follow up [phone] over next 2 weeks FOLLOW UP APPOINTMENTS: Future Appointments Date Time Provider Department Center 02/23/2023 3:30 PM Myke Ross MD IFDREJ REJ 03/15/2023 8:20 AM Ganesh Archer MD [facility] ALLERGIES Allergen Reactions Lactose Diarrhea Aleve [...] twice daily. Qty: (more content not included)... [facility] NURSING PROGon 01-14-2023 NURSING PROG HNO ID: [id number] Author: Nury Gonzalez RN Service: Nursing Author Type: Registered Nurse Type: Nursing Progress Note Filed: 01/14/2023 4:33 PM Note Text: Other: Pt left for discharge via wheelchair in stable condition. Pt returned all belongings, wearing bilateral hearing aids. Pt given and explained discharge instructions. All pt questions answered. [facility] Basic metabolic 2000 panelon 01-13-2023 Anion gap [Moles/Vol] 10 mmol/L Normal 9-18 [facility] Comment on above: Order Comment: Speci men Type: BLOOD SPECIMENOrdering Facility: [facility] Address: [address] [place] [phone] Performed By: #### 3 016-3, 36774-2 ####[facility]ATORYCLIA [id number] [place] [address] [place] Calcium [Mass/Vol] 8.7 mg/dL Normal 8.5-10.2 [facility] Comment on above: Order Comment: Speci men Type: BLOOD SPECIMENOrdering Facility: [facility] Address: [address] [place] [address] Performed By: #### 3 016-3, 31441-4 ####[facility]ATORYCLIA [id number] [place] [address] [place] Chloride [Moles/Vol] 105 mmol/L Normal 97-105 [facility] Comment on above: Order Comment: Speci men Type: BLOOD SPECIMENOrdering Facility: [facility] Address: [address] [place] [address] Performed By: #### 3 3, ####[facility]ITALIA [id number] [place] [address] [place] CO2 [Moles/Vol] 27 mmol/L Normal 22-30 [facility] Comment on above: Order Comment: Speci men Type: BLOOD SPECIMENOrdering Facility: [facility] Address: [address] [place] [address] Performed By: #### 3 016-3, ####[facility] LABORATORYIA [id number] [place] [address] [place] Creatinine [Mass/Vol] 0.59 mg/dL Normal 0.58-0.96 [facility] Comment on above: Order Comment: Speci men Type: BLOOD SPECIMENOrdering Facility: [facility] Address: [address] [place] [address] Performed By: #### 3 016-3, 99394-9 ####[facility] LABORATORYIA [id number] [place] [address] [place] ESTIMATED GLOMERULAR FILTRATION RATE 111 mL/min/1.73m??? Normal >=60 [facility] Comment on above: Order Comment: Elias do Type: BLOOD SPECIMENOrdering Facility: [facility] Address: [address] [place] [id number] Result Comment: Carmen mated Glomerular Filtration Rate [...] actual GFR. Performed By: #### 3 016-3, 42123-6 ####[facility]ATORYCLIA [id number] [place] [address] [place] Glucose [Mass/Vol] 97 mg/dL Normal 74-99 [facility] Comment on above: Order Comment: Elias do Type: BLOOD SPECIMENOrdering Facility: [facility] Address: [place] [address] Result Comment: The [place] Diabetes Association (ADA) provides guidance for cutoff [...] Standards of Medical Care in Diabetes 2016, [place] [employer]. Diabetes Care. 2016.39(Suppl 1). Performed By: #### 3 016-3, 43207-4 ####[facility]ATORYCLIA [id number] [place] [address] [place] Potassium [Moles/Vol] 3.7 mmol/L Normal 3.7-5.1 [facility] Comment on above: Order Comment: Elias do Type: BLOOD SPECIMENOrdering Facility: [facility] Address: [place] [place] [phone] Performed By: #### 3 016-3, 24079-7 ####[facility]ATORYCLIA [id number] [facility] [address] [place] [facility] Sodium [Moles/Vol] 142 mmol/L Normal 136-144 [facility] Comment on above: Order Comment: Speci men Type: BLOOD SPECIMENOrdering Facility: [facility] Address: [address] [place] [address] Performed By: #### 3 016-3, 59753-5 ####[facility] LABORATORYIA [id number] [address] [place] Urea nitrogen [Mass/Vol] 7 mg/dL Normal 7-21 [facility] Comment on above: Order Comment: Speci men Type: BLOOD SPECIMENOrdering Facility: [facility] Address: [address] [place] [address] Performed By: #### 3 016-3, 02942-2 ####[facility]ITALIA [id number] [facility].[address] [place] CBC panel Auto (Bld)on 01-13 Erythrocyte distribution width (RBC) [Ratio] 15.8 % High 11.5-15.0 [facility] Comment on above: Order Comment: Speci men Type: BLOOD SPECIMENOrdering Facility: [facility] Address: [address] [place] [address] Performed By: #### 5 8410-2 ####[facility] LABORATORYIA [id number] [facility].[address] [place] Hematocrit (Bld) [Volume fraction] 34.0 % Low 36.0-46.0 [facility] Comment on above: Order Comment: Speci men Type: BLOOD SPECIMENOrdering Facility: [facility] Address: [address] [place] [address] Performed By: #### 5 8410-2 ####[facility] LABORATORYIA [id number] [facility] [place] [address] [place] Hemoglobin (Bld) [Mass/Vol] 10.4 g/dL Low 11.5-15.5 [facility] Comment on above: Order Comment: Speci men Type: BLOOD SPECIMENOrdering Facility: [facility] Address: [address] [place] [address] Performed By: #### 5 8410-2 ####[facility] [id number] [address] OF [facility] MCH (RBC) [Entitic mass] 27.7 pg Normal 26.0-34.0 [facility] Comment on above: Order Comment: Speci men Type: BLOOD SPECIMENOrdering Facility: [facility] Address: [address] [place] [address] Performed By: #### 5 8410-2 ####[facility] [id number] [address] [place] MCHC (RBC) [Mass/Vol] 30.6 g/dL Normal 30.5-36.0 [facility] Comment on above: Order Comment: Speci men Type: BLOOD SPECIMENOrdering Facility: [facility] Address: [address] [place] [address] Performed By: #### 5 8410-2 ####[facility] [id number] [address] OF [facility] MCV (RBC) [Entitic vol] 90.4 fL Normal 80.0-100.0 [facility] Comment on above: Order Comment: Speci men Type: BLOOD SPECIMENOrdering Facility: [facility] Address: [address] [place] [address] Performed By: #### 5 8410-2 ####[facility] [id number] [address] [place] Nucleated RBC (Bld) [#/Vol] 10*3/uL Normal <0.01 [facility] Comment on above: Order Comment: Speci men Type: BLOOD SPECIMENOrdering Facility: [facility] Address: [address] [place] [address] Performed By: #### 5 8410-2 ####[facility] LABORATORYIA [id number] [place] [address] [place] Platelet mean volume (Bld) [Entitic vol] 10.6 fL Normal 9.0-12.7 [facility] Comment on above: Order Comment: Speci men Type: BLOOD SPECIMENOrdering Facility: [facility] Address: [address] [place], [place] [address] Performed By: #### 5 8410-2 ####[facility] [id number] [place] [address] [place] Platelets (Bld) [#/Vol] 289 10*3/uL Normal 150-400 [facility] Comment on above: Order Comment: Speci men Type: BLOOD SPECIMENOrdering Facility: [facility] Address: [address] [place], [place] [address] Performed By: #### 5 8410-2 ####[facility] [id number] [place] [address] [place] RBC (Bld) [#/Vol] 3.76 10*6/uL Low 3.90-5.20 [facility] Comment on above: Order Comment: Speci men Type: BLOOD SPECIMENOrdering Facility: [facility] Address: [address] [place], [place] [address] Performed By: #### 5 8410-2 ####[facility]ITALIA [id number] [place] [address] [place] WBC (Bld) [#/Vol] 8.61 10*3/uL Normal 3.70-11.00 [facility] Comment on above: Order Comment: Speci men Type: BLOOD SPECIMENOrdering Facility: [facility] Address: [address] [place] [address] Performed By: #### 5 8410-2 ####[facility]ITALIA [id number] [place] [address] [facility] [place] CONSULT PROGon 01-13-2023 CONSULT PROG HNO ID: [id number] Author: Gertrudis Frederick APRN.SHELL ASSEMBLER Service: Cardiovascular Medicine Author Type: Nurse Practitioner Type: Consult Progress Note Filed: 01/13/2023 3:34 PM Note Text: [facility] CONSULT PROGRESS NOTE (Template ID [id number]) CONSULTING SERVICE: Cardiology: Consult Team PRIMARY SERVICE: Internal Medicine HOSPITAL DAY: #3 REASON FOR CONSULT: Atrial fibrillation SUBJECTIVE HPI: Ms. [place] is a 47 year old female from [place], [place] with h/o morbid obesity, necrotizing fascitis [...] mg twice daily. Titrate as needed. - HTO7IP3 VASc score is 2. Recomm (more content not included)... Normal [facility] 01-13-2023 Echocardiography Echocardiography Report: Transthoracic Echo [facility] Date of service: 01/13/2023 1:32:30 [...] * * Final * * * CC [facility] : [id number] [facility] THERAPY NTon 01-13-2023 THERAPY NT HNO ID: [id number] Author: Chapis Forde PT, LATONIA Service: ? Author Type: Physical Therapist Type: Therapy (PT/OT/Speech/Resp) Filed: 01/13/2023 2:52 PM Note Text: PHYSICAL THERAPY MISSED VISIT SERVICE DATE: 01/13/2023 SERVICE TIME: 1451 to 1451 ROOM: [place] [address] Patient not seen due to Another service at bedside. PT will re-attempt at a later date. SIGNATURE: Chapis Forde PT, DPT PATIENT NAME: [place] DATE: January 13, 2023 TIME: 2:52 PM [facility] TSH SerPl-aCncon 01-13-2023 TSH Qn 2.350 m[IU]/L Normal 0.270-4.200 [facility] Comment on above: Order Comment: Speci men Type: BLOOD SPECIMENOrdering Facility: [facility] Address: [address] [place] [phone] Result Comment: If t he patient is , TSH reference range varies by gestational period: First Trimester (weeks 9-12): 0.180-2.990 mIU/L Second Trimester: 0.110-3.980 mIU/L Third Trimester: 0.480-4.710 mIU/L Epi Hopkins et al. A Practical Approach for the Verifications and Determination of Site- and Trimester-Specific Reference Intervals for Thyroid Function tests in . Thyroid, 2019:29:3:412-420. Dao E, et al. 2017 Guidelines of the [place] Thyroid Association for the Diagnosis and Management of Thyroid Disease during and the . Thyroid, 2017:27:3:315-389. Performed By: #### 3 016-3, 12659-6 ####[facility]ORATORYCLIA [id number] [place] [address] [place] Basic metabolic 2000 panelon 01-12-2023 Anion gap [Moles/Vol] 9 mmol/L Normal 9-18 [facility] Comment on above: Order Comment: Elias do Type: BLOOD SPECIMENOrdering Facility: [facility] Address: [address] [place] [address] Performed By: #### 1 9123-9, 02151-0 ####[facility] [id number] [place] [address] [place] Calcium [Mass/Vol] 8.8 mg/dL Normal 8.5-10.2 [facility] Comment on above: Order Comment: Elias do Type: BLOOD SPECIMENOrdering Facility: [facility] Address: [address] [place] [address] Performed By: #### 1 9123-9, 54668-5 ####[facility]ATORYIA [id number] [place] [address] [place] Chloride [Moles/Vol] 106 mmol/L High 97-105 [facility] Comment on above: Order Comment: Elias do Type: BLOOD SPECIMENOrdering Facility: [facility] Address: [address] [place] [address] Performed By: #### 1 9123-9, 27246-7 ####[facility]ATORYIA [id number] [place] [address] [place] CO2 [Moles/Vol] 26 mmol/L Normal 22-30 [facility] Comment on above: Order Comment: Speci men Type: BLOOD SPECIMENOrdering Facility: [facility] Address: [address] [place] [address] Performed By: #### 1 9123-9, 51854-4 ####[facility]ATORYIA [id number] [place] [address] [place] Creatinine [Mass/Vol] 0.69 mg/dL Normal 0.58-0.96 [facility] Comment on above: Order Comment: Speci men Type: BLOOD SPECIMENOrdering Facility: [facility] Address: [address] [place] [address] Performed By: #### 1 9123-9, 32390-8 ####[facility] [id number] [address] [place] ESTIMATED GLOMERULAR FILTRATION RATE 107 mL/min/1.73m??? Normal >=60 [facility] Comment on above: Order Comment: Speci men Type: BLOOD SPECIMENOrdering Facility: [facility] Address: [address] [place] [address] Result Comment: Carmen mated Glomerular Filtration Rate [...] actual GFR. Performed By: #### 1 9123-9, 03383-7 ####[facility]ATORYIA [id number] [place] [address] [place] Glucose [Mass/Vol] 107 mg/dL High 74-99 [facility] Comment on above: Order Comment: Speci men Type: BLOOD SPECIMENOrdering Facility: [facility] Address: [address] [place], [place] [address] Result Comment: The [place] Diabetes Association (ADA) provides guidance for cutoff [...] Standards of Medical Care in Diabetes 2016, [place] Diabetes Association. Diabetes Care. 2016.39(Suppl 1). Performed By: #### 1 9123-9, 89228-0 ####[facility]ATORYCLIA [id number] [place] [address] [place] Potassium [Moles/Vol] 4.1 mmol/L Normal 3.7-5.1 [facility] Comment on above: Order Comment: Speci men Type: BLOOD SPECIMENOrdering Facility: [facility] Address: [address] Performed By: #### 1 [address]1239, 39213-0 ####[facility] [id number] [place] [address] [place] Sodium [Moles/Vol] 141 mmol/L Normal 136-144 [facility] Comment on above: Order Comment: Speci men Type: BLOOD SPECIMENOrdering Facility: [facility] Address: [address] Performed By: #### 1 [address]12[address], 63174-0 ####[facility]ATORYCLIA [id number] [place] [address] [place] Urea nitrogen [Mass/Vol] 9 mg/dL Normal 7-21 [facility] Comment on above: Order Comment: Speci men Type: BLOOD SPECIMENOrdering Facility: [facility] Address: [address] Performed By: #### 1 [address]1239, 28806-2 ####[facility] [id number] [address] [place] CBC panel Auto (Bld)on 01-12 Erythrocyte distribution width (RBC) [Ratio] 15.9 % High 11.5-15.0 [facility] Comment on above: Order Comment: Speci men Type: BLOOD SPECIMENOrdering Facility: [facility] Address: [address] [place] [address] Performed By: #### 5 8410-2 ####[facility]ORY[facility] [id number] [address] Hematocrit (Bld) [Volume fraction] 33.2 % Low 36.0-46.0 [facility] Comment on above: Order Comment: Speci men Type: BLOOD SPECIMENOrdering Facility: [facility] Address: [address] [place] [address] Performed By: #### 5 8410-2 ####[facility] [id number] [address] [place] Hemoglobin (Bld) [Mass/Vol] 10.3 g/dL Low 11.5-15.5 [facility] Comment on above: Order Comment: Speci men Type: BLOOD SPECIMENOrdering Facility: [facility] Address: [address] [place] [address] Performed By: #### 5 8410-2 ####[facility]ORY[facility] [id number] [address] MCH (RBC) [Entitic mass] 27.8 pg Normal 26.0-34.0 [facility] Comment on above: Order Comment: Speci men Type: BLOOD SPECIMENOrdering Facility: [facility] Address: [address] [place] [address] Performed By: #### 5 8410-2 ####[facility]ORY[facility] [id number] [address] [place] MCHC (RBC) [Mass/Vol] 31.0 g/dL Normal 30.5-36.0 [facility] Comment on above: Order Comment: Speci men Type: BLOOD SPECIMENOrdering Facility: [facility] Address: [address] Performed By: #### 5 8410-2 ####[facility] [id number] [place] [address] [place] MCV (RBC) [Entitic vol] 89.7 fL Normal 80.0-100.0 [facility] Comment on above: Order Comment: Speci men Type: BLOOD SPECIMENOrdering Facility: [facility] Address: [address] Performed By: #### 5 8410-2 ####[facility] [id number] [place] [address] [place] Nucleated RBC (Bld) [#/Vol] 10*3/uL Normal <0.01 [facility] Comment on above: Order Comment: Speci men Type: BLOOD SPECIMENOrdering Facility: [facility] Address: [address] Performed By: #### 5 8410-2 ####[facility] [id number] [place] [address] [place] Platelet mean volume (Bld) [Entitic vol] 10.8 fL Normal 9.0-12.7 [facility] Comment on above: Order Comment: Speci men Type: BLOOD SPECIMENOrdering Facility: [facility] Address: [address] Performed By: #### 5 8410-2 ####[facility] [id number] [place] [address] [place] Platelets (Bld) [#/Vol] 271 10*3/uL Normal 150-400 [facility] Comment on above: Order Comment: Speci men Type: BLOOD SPECIMENOrdering Facility: [facility] Address: [address] Performed By: #### 5 8410-2 ####[facility]ATORYCLIA [id number] [facility] [address] [facility] RBC (Bld) [#/Vol] 3.70 10*6/uL Low 3.90-5.20 [facility] Comment on above: Order Comment: Speci men Type: BLOOD SPECIMENOrdering Facility: [facility] Address: [address] [place] [address] Performed By: #### 5 8410-2 ####[facility]ATORYCLIA [id number] [facility] [address] [facility] WBC (Bld) [#/Vol] 8.61 10*3/uL Normal 3.70-11.00 [facility] Comment on above: Order Comment: Speci men Type: BLOOD SPECIMENOrdering Facility: [facility] Address: [address] [place] [address] Performed By: #### 5 8410-2 ####[facility] [id number] [place] [id number] [facility] CONSULTon 01-12-2023 CONSULT HNO ID: [id number] Author: Quintin Yusuf MD Service: Cardiovascular Medicine [...] is a 47 year old female from [place], [place] with h/o morbid obesity, necrotizing fascitis [...] Diagnosis Date RAFIA (acute kidney injury) ([facility]) 07/20/2013 Baseline Cr 0.58 07/20 Cr 1.6 Possibly 2/2 sepsis (organ damage) as pt received 8L IVFs Making urine appropriately Plan: IVFs Anxiety Asthma Cervical spondylosis Chronic pain Debility HTN (hypertension) Hypothyroid Irritable bowel syndrome Lymphedema Morbid obesity (HCC) Necrotizing fasciitis ([facility]) 08/14/2012 thigh wound Septic shock ([facility]) 07/20/2013 On Dopamine, vasopressine and NE upon [...] tab(s) (more content not included)... Normal [facility] ECG COMPLETEon 01-12-2023 ECG COMPLETE Ventricular Rate : 99 BPM Atrial Rate : 0 BPM P-R Interval : 128 ms QRS Duration : 100 ms Q-T Interval : 366 ms QTC Calculation(Bazett) : 470 ms Calculated R [place] : 37 degrees Calculated T [place] : 3 degrees Atrial fibrillation Nonspecific ST and T wave abnormality Confirmed by JOSE M DESAI MD ([id number]) on 01/14/2023 1:03:28 PM NAME : MITCHELL BROOKS PID : [id number] : 1975 Gender : Female Race : ORD : [id number] Procedure Date : Jan 12 2023 14:28:44 Edit Date : Jan 14 2023 13:03:29 Diagnosis: Atrial fibrillation Nonspecific ST and T wave abnormality Confirmed by JOSE M DESAI MD ([id number]) on 01/14/2023 1:03:28 PM Test Reason : Arrhythmia Location : 300 : EKG 506 Overread By : JOSE M DESAI MD Edited By : JOSE M DESAI MD Referred By : ROMÁN CHANDLER Acquired by : Beth ERICKSON [facility] HCG Preg Ur Qlon 01-12-2023 HCG ( test) Ql (U) Negative Normal Negative [facility] Comment on above: Order Comment: Speci men Type: URINE SPECIMENOrdering Facility: [facility] Address: [facility] [place] [address] Result Comment: This test is intended to aid in the early detection of . Very dilute urine samples, as indicated by a low specific gravity, may not contain hostess party sales representative levels of hCG. This test [...] for . Performed By: #### 2 106-3 ####[facility] LABORATORYCLIA [id number] [place] [address] [facility] [place] Magnesium SerPl-mCncon 01-12 Magnesium [Mass/Vol] 2.0 mg/dL Normal 1.7-2.3 [facility] Comment on above: Order Comment: Speci men Type: BLOOD SPECIMENOrdering Facility: [facility] Address: [place] [address] Performed By: #### 1 9123-9, 63228-9 ####[facility]ORATORYCLIA [id number] [facility] [place] [address] [facility] NURSING PROGon 01-12-2023 NURSING PROG HNO ID: [id number] Author: Donna Harrison RN Service: PICC Team Author Type: Registered Nurse Type: Nursing Progress Note Filed: 01/12/2023 2:41 PM Note Text: PICC/VASCULAR ACCESS PROGRESS NOTE SERVICE DATE: 01/12/2023 SERVICE TIME: 1420 Called to [address] [place] [address] for difficult IV start. #20 angio 2 inch placed in right forearm under ultrasound guidance. Brisk blood return flushed with 10ml of normal saline with no complications. RN aware. SIGNATURE: Donna Harrison RN PATIENT NAME: Mitchell Brooks DATE: January 12, 2023 TIME: 2:38 PM PAGER/CONTACT #: [phone] [facility] THERAPY NT 01-12-2023 THERAPY NT HNO ID: [id number] Author: Chapis Forde, PT, DPT Service: ? 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 Now I have to see the route delivery driver and infectious disease before I leave." CURRENT [...] Muscle (more content not included)... Normal [facility] Basic metabolic 2000 panelon 01-11-2023 Anion gap [Moles/Vol] 11 mmol/L Normal 9-18 [facility] Comment on above: Order Comment: Speci men Type: BLOOD SPECIMENOrdering Facility: [facility] Address: [address] [place] [place] [address] Performed By: #### 2 4321-2 ####[facility] LABORATORYCLIA [id number] [place] [address] [place] Calcium [Mass/Vol] 8.4 mg/dL Low 8.5-10.2 [facility] Comment on above: Order Comment: Speci men Type: BLOOD SPECIMENOrdering Facility: [facility] Address: [address] [place] [address] Performed By: #### 2 4321-2 ####[facility]ORATORYCLIA [id number] [place] [address] [place] Chloride [Moles/Vol] 103 mmol/L Normal 97-105 [facility] Comment on above: Order Comment: Speci men Type: BLOOD SPECIMENOrdering Facility: [facility] Address: [address] [place] [place] [address] Performed By: #### 2 4321-2 ####[facility]ORATORYCLIA [id number] [place] [address] [place] CO2 [Moles/Vol] 24 mmol/L Normal 22-30 [facility] ital Comment on above: Order Comment: Speci men Type: BLOOD SPECIMENOrdering Facility: [facility] Address: [address] [place] [place] [address] Performed By: #### 2 4321-2 ####[facility]ORATORYCLIA [id number] [address] [place] Creatinine [Mass/Vol] 0.72 mg/dL Normal 0.58-0.96 [facility] Comment on above: Order Comment: Speci men Type: BLOOD SPECIMENOrdering Facility: [facility] Address: [address] [place] [address] Performed By: #### 2 4321-2 ####[facility] LABORATORYIA [id number] [address] [place] ESTIMATED GLOMERULAR FILTRATION RATE 103 mL/min/1.73m??? Normal >=60 [facility] l Comment on above: Order Comment: Speci men Type: BLOOD SPECIMENOrdering Facility: [facility] Address: [address] [place] [address] Result Comment: Carmen mated Glomerular Filtration Rate [...] actual GFR. Performed By: #### 2 4321-2 ####[facility]ORATORYCLIA [id number] [place] [address] [place] Glucose [Mass/Vol] 118 mg/dL High 74-99 [facility] Comment on above: Order Comment: Speci men Type: BLOOD SPECIMENOrdering Facility: [facility] Address: [address] [place] [address] Result Comment: The [place] Diabetes Association (ADA) provides guidance for cutoff [...] Standards of Medical Care in Diabetes 2016, [place] [employer]. Diabetes Care. 2016.39(Suppl 1). Performed By: #### 2 4321-2 ####[facility]ORATORYCLIA [id number] [place] [address] [place] Potassium [Moles/Vol] 3.6 mmol/L Low 3.7-5.1 [facility] Comment on above: Order Comment: Speci men Type: BLOOD SPECIMENOrdering Facility: [facility] Address: [address] [place] [address] Performed By: #### 2 4321-2 ####[facility] LABORATORYIA [id number] [place] [address] [place] Sodium [Moles/Vol] 138 mmol/L Normal 136-144 [facility] Comment on above: Order Comment: Speci men Type: BLOOD SPECIMENOrdering Facility: [facility] Address: [address] [place] [address] Performed By: #### 2 4321-2 ####[facility] HOSPITALIA [id number] [place] [address] [place] Urea nitrogen [Mass/Vol] 10 mg/dL Normal 7-21 [facility] Comment on above: Order Comment: Speci men Type: BLOOD SPECIMENOrdering Facility: [facility] Address: [address] [place] [address] Performed By: #### 2 4321-2 ####[facility] LABORATORYIA [id number] [address] [place] CBC panel Auto (Bld)on 01-11 Erythrocyte distribution width (RBC) [Ratio] 16.0 % High 11.5-15.0 [facility] Comment on above: Order Comment: Speci men Type: BLOOD SPECIMENOrdering Facility: [facility] Address: [address] [place] [address] Performed By: #### 5 8410-2 ####[facility] HOSPITALIA [id number] [address] [place] Hematocrit (Bld) [Volume fraction] 32.9 % Low 36.0-46.0 [facility] Comment on above: Order Comment: Speci men Type: BLOOD SPECIMENOrdering Facility: [facility] Address: [address] [place] [address] Performed By: #### 5 8410-2 ####[facility] HOSPITALIA [id number] [address] [place] Hemoglobin (Bld) [Mass/Vol] 10.2 g/dL Low 11.5-15.5 [facility] Comment on above: Order Comment: Speci men Type: BLOOD SPECIMENOrdering Facility: [facility] Address: [address] [place] [address] Performed By: #### 5 8410-2 ####[facility] HOSPITALIA [id number] [address] [place] MCH (RBC) [Entitic mass] 28.0 pg Normal 26.0-34.0 [facility] Comment on above: Order Comment: Speci men Type: BLOOD SPECIMENOrdering Facility: [facility] Address: [address] [place] [address] Performed By: #### 5 8410-2 ####[facility] LABORATORYIA [id number] [place] [address] [place] MCHC (RBC) [Mass/Vol] 31.0 g/dL Normal 30.5-36.0 [facility] Comment on above: Order Comment: Speci men Type: BLOOD SPECIMENOrdering Facility: [facility] Address: [address] [place] [address] Performed By: #### 5 8410-2 ####[facility] LABORATORYIA [id number] [place] [address] [place] MCV (RBC) [Entitic vol] 90.4 fL Normal 80.0-100.0 [facility] Comment on above: Order Comment: Speci men Type: BLOOD SPECIMENOrdering Facility: [facility] Address: [address] [place] [address] Performed By: #### 5 8410-2 ####[facility] [id number] [place] [address] [place] Nucleated RBC (Bld) [#/Vol] 10*3/uL Normal <0.01 [facility] Comment on above: Order Comment: Speci men Type: BLOOD SPECIMENOrdering Facility: [facility] Address: [address] [place] [address] Performed By: #### 5 8410-2 ####[facility] HOSPITALIA [id number] [place] [address] [place] Platelet mean volume (Bld) [Entitic vol] 10.6 fL Normal 9.0-12.7 [facility] Comment on above: Order Comment: Speci men Type: BLOOD SPECIMENOrdering Facility: [facility] Address: [address] [place] [address] Performed By: #### 5 8410-2 ####[facility] HOSPITALIA [id number] [place] [address] [place] Platelets (Bld) [#/Vol] 263 10*3/uL Normal 150-400 [facility] Comment on above: Order Comment: Speci men Type: BLOOD SPECIMENOrdering Facility: [facility] Address: [facility] [address] Performed By: #### 5 8410-2 ####[facility] LABORATORYIA [id number] [place] [address] [facility] RBC (Bld) [#/Vol] 3.64 10*6/uL Low 3.90-5.20 [facility] Comment on above: Order Comment: Speci men Type: BLOOD SPECIMENOrdering Facility: [facility] Address: [address] [place] [address] Performed By: #### 5 8410-2 ####[facility] HOSPITALIA [id number] [place] [id number] [facility] WBC (Bld) [#/Vol] 13.19 10*3/uL High 3.70-11.00 [facility] Comment on above: Order Comment: Speci men Type: BLOOD SPECIMENOrdering Facility: [facility] Address: [address] [place] [address] Performed By: #### 5 8410-2 ####[facility] HOSPITALIA [id number] [address] CONSULT PROGon 01-11-2023 CONSULT PROG HNO ID: [id number] Author: Agustin Clark RPh Service: Pharmacy Author [...] are questions. Agustin Clark RPh Normal [facility] ECG COMPLETEon 01-11-2023 ECG COMPLETE Ventricular Rate : 143 BPM Atrial Rate : 140 BPM P-R Interval : 176 ms QRS Duration : 77 ms Q-T Interval : 355 ms QTC Calculation(Bazett) : 548 ms Calculated R [place] : 42 degrees Calculated T [place] : -67 degrees Atrial fibrillation Confirmed by JOSE M DESAI MD ([id number]) on 01/14/2023 12:51:31 PM NAME : MITCHELL BROOKS PID : [id number] : 1975 Gender : Female Race : ORD : [id number] Procedure Date : Jan 11 2023 14:12:20 Edit Date : Jan 14 2023 12:51:34 Diagnosis: Atrial fibrillation Confirmed by JOSE M DESAI MD ([id number]) on 01/14/2023 12:51:31 PM Test Reason : Arrhythmia Location : 300 : EKG 506 Overread By : JOSE M DESAI MD Edited By : JOSE M DESAI MD Referred By : ROMÁN CHANDLER Acquired by : LANDRY SCOTT [facility] THERAPY NT 01-11-2023 THERAPY NT HNO ID: [id number] Author: Chapis Forde PT, DPT Service: ? Author Type: Physical Therapist Type: Therapy (PT/OT/Speech/Resp) Filed: 01/11/2023 4:13 PM Note Text: Physical Therapy Evaluation SERVICE DATE: 01/11/2023 SERVICE TIME: 1459 to 1540 ROOM: [place] [address] Recommended Discharge Disposition: Home PT Recommended Discharge [...] and mobility-other Interventions Provided: Evaluation, Gait Training (26306), Therapeutic Activity (89815) $ Evaluation-Low (56385) Billed Units: 1 unit Therapeutic Activity (65246) Treatment Minutes: 10 $ Therapeutic Activity (52848) Billed Units: 1 unit Gait Training (02391) Treatment Minutes: 16 $ Gait Training (00482) Billed Units: 1 unit Training AND Education Pro (more content not included)... Normal [facility] Basic metabolic 2000 panelon 01-10-2023 Anion gap [Moles/Vol] 11 mmol/L Normal 9-18 [facility] Comment on above: Order Comment: Speci men Type: BLOOD SPECIMENOrdering Facility: [facility] Address: [address] [place] [address] Performed By: #### 2 4321-2 ####[facility]ORATORYCLIA [id number] [place] [address] [place] Calcium [Mass/Vol] 8.8 mg/dL Normal 8.5-10.2 [facility] Comment on above: Order Comment: Speci men Type: BLOOD SPECIMENOrdering Facility: [facility] Address: [address] [place] [address] Performed By: #### 2 4321-2 ####[facility] LABORATORYCLIA [id number] [place] [address] [place] Chloride [Moles/Vol] 101 mmol/L Normal 97-105 [facility] Comment on above: Order Comment: Speci men Type: BLOOD SPECIMENOrdering Facility: [facility] Address: [address] [address] Performed By: #### 2 4321-2 ####[facility] LABORATORYCLIA [id number] [place] [address] [place] CO2 [Moles/Vol] 27 mmol/L Normal 22-30 [facility] Comment on above: Order Comment: Speci men Type: BLOOD SPECIMENOrdering Facility: [facility] Address: [address] [place] [address] Performed By: #### 2 4321-2 ####[facility] HOSPITALIA [id number] [place] [address] [place] Creatinine [Mass/Vol] 0.67 mg/dL Normal 0.58-0.96 [facility] Comment on above: Order Comment: Speci men Type: BLOOD SPECIMENOrdering Facility: [facility] Address: [address] [place] [address] Performed By: #### 2 4321-2 ####[facility] HOSPITALIA [id number] [address] [place] ESTIMATED GLOMERULAR FILTRATION RATE 108 mL/min/1.73m??? Normal >=60 [facility] Comment on above: Order Comment: Speci men Type: BLOOD SPECIMENOrdering Facility: [facility] Address: [address] [place] [address] Result Comment: Carmen mated Glomerular Filtration Rate [...] actual GFR. Performed By: #### 2 4321-2 ####[facility] LABORATORYIA [id number] [place] [address] [place] Glucose [Mass/Vol] 111 mg/dL High 74-99 [facility] Comment on above: Order Comment: Speci men Type: BLOOD SPECIMENOrdering Facility: [facility] Address: [address] [place] [address] Result Comment: The [place] Diabetes Association (ADA) provides guidance for cutoff [...] Standards of Medical Care in Diabetes 2016, [place] [employer]. Diabetes Care. 2016.39(Suppl 1). Performed By: #### 2 4321-2 ####[facility] LABORATORYCLIA [id number] [place] [address] [place] Potassium [Moles/Vol] 3.9 mmol/L Normal 3.7-5.1 [facility] Comment on above: Order Comment: Speci men Type: BLOOD SPECIMENOrdering Facility: [facility] Address: [address] [place] [address] Performed By: #### 2 4321-2 ####[facility] HOSPITALIA [id number] [place] [address] [place] Sodium [Moles/Vol] 139 mmol/L Normal 136-144 [facility] Comment on above: Order Comment: Speci men Type: BLOOD SPECIMENOrdering Facility: [facility] Address: [address] [address] Performed By: #### 2 4321-2 ####[facility]ORATORYCLIA [id number] [place] [address] [place] Urea nitrogen [Mass/Vol] 9 mg/dL Normal 7-21 [facility] Comment on above: Order Comment: Speci men Type: BLOOD SPECIMENOrdering Facility: [facility] Address: [address] [address] Performed By: #### 2 4321-2 ####[facility] LABORATORYCLIA [id number] [facility] [address] [place] CBC W Auto Differential pane l (Bld)on 01-10-2023 Basophils (Bld) [#/Vol] 0.12 10*3/uL High <0.11 [facility] Comment on above: Order Comment: Speci men Type: BLOOD SPECIMENOrdering Facility: [facility] Address: [address] [place] [address] Performed By: #### 5 7021-8 ####[facility]ITALIA [id number] [address] [place] Basophils/100 WBC (Bld) 0.4 % Normal [facility] Comment on above: Order Comment: Speci men Type: BLOOD SPECIMENOrdering Facility: [facility] Address: [address] [place] [address] Performed By: #### 5 7021-8 ####[facility]ITALIA [id number] [address] [place] Differential cell count method Nom (Bld) Auto Normal [facility] Comment on above: Order Comment: Speci men Type: BLOOD SPECIMENOrdering Facility: [facility] Address: [address] [place] [address] Performed By: #### 5 7021-8 ####[facility]ITALIA [id number] [place] [address] [place] Eosinophils (Bld) [#/Vol] 0.16 10*3/uL Normal <0.46 [facility] Comment on above: Order Comment: Speci men Type: BLOOD SPECIMENOrdering Facility: [facility] Address: [address] [place] [address] Performed By: #### 5 7021-8 ####[facility]IA [id number] [address] [place] Eosinophils/100 WBC (Bld) 0.5 % Normal [facility] Comment on above: Order Comment: Speci men Type: BLOOD SPECIMENOrdering Facility: [facility] Address: [address] [address] Performed By: #### 5 7021-8 ####[facility]ITALIA [id number] [place] [address] [place] Erythrocyte distribution width (RBC) [Ratio] 16.1 % High 11.5-15.0 [facility] Comment on above: Order Comment: Speci men Type: BLOOD SPECIMENOrdering Facility: [facility] Address: [address] [address] Performed By: #### 5 7021-8 ####[facility]ITALIA [id number] [place] [address] [place] Hematocrit (Bld) [Volume fraction] 35.7 % Low 36.0-46.0 [facility] Comment on above: Order Comment: Speci men Type: BLOOD SPECIMENOrdering Facility: [facility] Address: [address] [address] Performed By: #### 5 7021-8 ####[facility] [id number] [place] [address] [place] Hemoglobin (Bld) [Mass/Vol] 11.3 g/dL Low 11.5-15.5 [facility] Comment on above: Order Comment: Speci men Type: BLOOD SPECIMENOrdering Facility: [facility] Address: [address] [address] Performed By: #### 5 7021-8 ####[facility]ITALIA [id number] [place] [address] [place] Immature granulocytes (Bld) [#/Vol] 0.34 10*3/uL High <0.10 [facility] Comment on above: Order Comment: Speci men Type: BLOOD SPECIMENOrdering Facility: [facility] Address: [address] [address] Performed By: #### 5 7021-8 ####[facility] HOS[facility]ITALIA [id number] [place] [address] [place] Immature granulocytes/100 WBC (Bld) 1.2 % Normal [facility] Comment on above: Order Comment: Speci men Type: BLOOD SPECIMENOrdering Facility: [facility] Address: [address] [address] Performed By: #### 5 7021-8 ####[facility] LABORATORYCLIA [id number] [place] [address] [place] Lymphocytes (Bld) [#/Vol] 1.21 10*3/uL Normal 1.00-4.00 [facility] Comment on above: Order Comment: Speci men Type: BLOOD SPECIMENOrdering Facility: [facility] Address: [address] [address] Performed By: #### 5 7021-8 ####[facility]ATORYIA [id number] [address] [place] Lymphocytes/100 WBC (Bld) 4.2 % Normal [facility] Comment on above: Order Comment: Speci men Type: BLOOD SPECIMENOrdering Facility: [facility] Address: [address] [address] Performed By: #### 5 7021-8 ####[facility]ATORYIA [id number] [address] [place] MCH (RBC) [Entitic mass] 28.2 pg Normal 26.0-34.0 [facility] Comment on above: Order Comment: Speci men Type: BLOOD SPECIMENOrdering Facility: [facility] Address: [address] [address] Performed By: #### 5 7021-8 ####[facility]ORYIA [id number] [address] [place] MCHC (RBC) [Mass/Vol] 31.7 g/dL Normal 30.5-36.0 [facility] Comment on above: Order Comment: Speci men Type: BLOOD SPECIMENOrdering Facility: [facility] Address: [address] [address] Performed By: #### 5 7021-8 ####[facility]ORATORYIA [id number] [place] [address] [place] MCV (RBC) [Entitic vol] 89.0 fL Normal 80.0-100.0 [facility] Comment on above: Order Comment: Speci men Type: BLOOD SPECIMENOrdering Facility: [facility] Address: [address] [address] Performed By: #### 5 7021-8 ####[facility]IA [id number] [place] [address] [place] Monocytes (Bld) [#/Vol] 1.32 10*3/uL High <0.87 [facility] Comment on above: Order Comment: Speci men Type: BLOOD SPECIMENOrdering Facility: [facility] Address: [address] [address] Performed By: #### 5 7021-8 ####[facility]IA [id number] [address] [place] Monocytes/100 WBC (Bld) 4.5 % Normal [facility] Comment on above: Order Comment: Speci men Type: BLOOD SPECIMENOrdering Facility: [facility] Address: [address] [address] Performed By: #### 5 7021-8 ####[facility]IA [id number] [place] [address] [place] Neutrophils (Bld) [#/Vol] 25.97 10*3/uL High 1.45-7.50 [facility] Comment on above: Order Comment: Speci men Type: BLOOD SPECIMENOrdering Facility: [facility] Address: [address] [address] Performed By: #### 5 7021-8 ####[facility]IA [id number] [place] [id number] [place] Neutrophils/100 WBC (Bld) 89.2 % Normal [facility] Comment on above: Order Comment: Speci men Type: BLOOD SPECIMENOrdering Facility: [facility] Address: [address] Performed By: #### 5 7021-8 ####[facility] [id number] [place] [address] [place] Nucleated RBC (Bld) [#/Vol] 0.02 10*3/uL High <0.01 [facility] Comment on above: Order Comment: Speci men Type: BLOOD SPECIMENOrdering Facility: [facility] Address: [address] [place] [place] [address] Performed By: #### 5 7021-8 ####[facility] [id number] [place] [id number] [place] Nucleated RBC/100 WBC (Bld) [Ratio] 0.1 /100 WBC Normal [facility] Comment on above: Order Comment: Speci men Type: BLOOD SPECIMENOrdering Facility: [facility] Address: [address] Performed By: #### 5 7021-8 ####[facility] [id number] [place] [address] [place] Platelet mean volume (Bld) [Entitic vol] 10.7 fL Normal 9.0-12.7 [facility] Comment on above: Order Comment: Speci men Type: BLOOD SPECIMENOrdering Facility: [facility] Address: [address] Performed By: #### 5 7021-8 ####[facility] [id number] [place] [address] [place] Platelets (Bld) [#/Vol] 309 10*3/uL Normal 150-400 [facility] Comment on above: Order Comment: Speci men Type: BLOOD SPECIMENOrdering Facility: [facility] Address: [address] Performed By: #### 5 7021-8 ####[facility]ORY[facility] [id number] [place] [id number] [place] RBC (Bld) [#/Vol] 4.01 10*6/uL Normal 3.90-5.20 [facility] Comment on above: Order Comment: Speci men Type: BLOOD SPECIMENOrdering Facility: [facility] Address: [place] [address] Performed By: #### 5 7021-8 ####[facility]ATORYCLIA [id number] [place] [address] [facility] WBC (Bld) [#/Vol] 29.12 10*3/uL High 3.70-11.00 [facility] Comment on above: Order Comment: Speci men Type: BLOOD SPECIMENOrdering Facility: [facility] Address: [place] [address] Performed By: #### 5 7021-8 ####[facility]ATORYCLIA [id number] [place] [address] [facility] CONSULTon 01-10-2023 CONSULT HNO ID: [id number] Author: Myke Ross MD Service: Infectious Disease [...] (0.083 (more content not included)... Normal [facility] CONSULT PROGon 01-10-2023 CONSULT PROG HNO ID: [id number] Author: Dorothy Steward RPh Service: Pharmacy Author [...] (H) 07/20/2013 0703 22.8 (H) Dorothy Steward [facility] Normal [facility] HISTORY PHYSICALon HISTORY PHYSICAL HNO ID: [id number] Author: Leigh Ann Valerio APRN.CNP Service: Hospital Medicine Author Type: Nurse Practitioner Type: HANDP Filed: 01/10/2023 3:47 AM Note Text: DEPARTMENT OF HOSPITAL MEDICINE HISTORY AND PHYSICAL EXAM SERVICE DATE: 01/10/2023 Code Status: Not on file SERVICE TIME: 3:18 AM Primary Care Physician: No primary care provider on file. NIGHT AND WEEKEND COVERAGE: HOQUIAM COVERAGE: Days: [phone], please contact via [employer] Nights: [phone] - floor: please page Hospitalist night cover [phone] - 4th floor: please page Hospitalist night cover [phone] - 5th floor: please page Hospitalist night cover [phone] Subjective CHIEF COMPLAINT: chills, generalized weakness HPI: [...] none since. Denies dysuria. On arrival to [place] ED T 101.1, HR 127 and p [...] Lymphedema Morbid obesity (HCC) Necrotizing fasciitis ([facility]) 08/14/2012 thigh wound Septic shock ([facility]) 07/20/2013 On Dopamine, vasopressine and NE upon [...] Unknown acetaminophen ( (more content not included)... [facility] NURSING PROGon 01-10-2023 NURSING PROG HNO ID: [id number] Author: Patricia Allemeier, RN Service: Nursing Author [...] in reach. 1635 Pt sister, Marsha Estevez [phone], called asking for update on condition- pt ok'd speaking to her and update provided by RN. [facility] NURSING PROG HNO ID: [id number] Author: Sis Laird RN Service: Nursing Author Type: Registered Nurse Type: Nursing Progress Note Filed: 01/10/2023 8:15 AM Note Text: Transfer Note: Patient transferred into room/unit 506 from outside hospital in stable condition. Actions taken: patient oriented to room, safety precautions. patient instructed on hospital's no smoking policy. nicotine patch offered, patient refused. [facility] XR KNEE 2V AP/LAT RTon 01-10 [...] compartment of the right knee. Marginal osteophytes Banana Ripening Room Supervisor: PSCB Transcribe Date/Time: Jan 10 2023 4:19P Dictated by : ROSI GARCIA MD This examination was interpreted and the report reviewed and electronically signed by: ROSI GARCIA MD on Jan 10 2023 4:20PM EST [id number] CN [facility] Absolute lymphocyte countOrd ered By: Dr. Watson on 11-08-2022 Lymphocytes Auto (Unsp spec) [#/Vol] 2.52 10*3/uL 0.83-4.51 [facility] Basophil percentageOrdered B y: Dr. Watson on 11-08-2022 Basophils/100 WBC (Bld) 0.8 % 0-1 [facility] Bilirubin [Mass/Vol] 0.30 mg/dL 0.20-1.00 [facility] Comment on above: For patients on eltr ombopag therapy, use of Dimension [place] TBIL is not recommended. Chloride [Moles/Vol] 103 mmol/L 98-107 [facility] Eosinophils/100 WBC (Bld) 1.8 % 0-5 [facility] Glucose [Mass/Vol] 101 mg/dL 74-106 [facility] Comment on above: Fasting Glucose resu lt from 100 to 125 mg/dL suggests IMPAIRED HOMEOSTASIS per A.D.A. criteria. Neutrophils (Bld) [#/Vol] 5.5 10*3/uL 2.0-7.7 [facility] Neutrophils/100 WBC (Bld) 62.5 % 47-70 [facility] Potassium [Moles/Vol] 4.1 mmol/L 3.5-5.1 [facility] Comment on above: Slight Hemolysis, Re sult may be falsely increased. Protein [Mass/Vol] 7.3 g/dL 6.4-8.2 [facility] Sodium [Moles/Vol] 137 mmol/L 136-145 [facility] WBC (Bld) [#/Vol] 8.8 10*3/uL 4.4-11.0 [facility] Blood erythrocytes count (nu mber/volume)Ordered By: Dr. Watson on 11-08-2022 RBC (Bld) [#/Vol] 4.30 10*6/uL 4.2-5.4 [facility] Blood hemoglobin measurement (mass/volume)Ordered By: Dr. Watson on 11-08-2022 Hemoglobin (Bld) [Mass/Vol] 12.6 g/dL 12.0-15.0 [facility] Blood lymphocytes/100 leukoc ytesOrdered By: Dr. Watson on 11-08-2022 Lymphocytes/100 WBC (Bld) 28.5 % 19-41 [facility] Blood monocytes/100 leukocyt esOrdered By: Dr. Watson on 11-08-2022 Monocytes/100 WBC (Bld) 5.8 % 0-10 [facility] Blood platelet mean volumeOr dered By: Dr. Watson on 11-08-2022 Platelet mean volume (Bld) [Entitic vol] 10.9 fL 6.2-12.0 [facility] Determination of erythrocyte mean corpuscular volume (MCV)Ordered By: Dr. Watson on 11-08-2022 MCV (RBC) [Entitic vol] 95.6 fL 81-99 [facility] Hematocrit Auto (Bld) [Volum e fraction]Ordered By: Dr. Watson on 11-08-2022 Hematocrit (Bld) [Volume fraction] 41.1 % 37-47 [facility] Laboratory - Chemistry and C hemistry - challengeOrdered By: Dr. Watson on 11-08-2022 ALP [Catalytic activity/Vol] 100 U/L 45-117 [facility] ALT [Catalytic activity/Vol] 24 U/L 13-56 [facility] CO2 [Moles/Vol] 27.0 mmol/L 21.0-32.0 [facility] Globulin (S) [Mass/Vol] 4.0 g/dL 2.2-4.2 [facility] Urea nitrogen/Creatinine [Mass ratio] 13.3 mg/mg 10-20 [facility] - Hematology and Cell countsOrdered By: Dr. Watson on 11-08-2022 Erythrocyte distribution width (RBC) [Entitic vol] 56.2 fL 35.1-43.9 [facility] Erythrocyte distribution width (RBC) [Ratio] 16.5 % 11.6-14.6 [facility] Immature granulocytes/100 WBC (Bld) 0.600 % 0.0-0.9 [facility] Comment on above: IG% - Immature Granu locytes (promyelocytes, myelocytes and metamyelocytes) > 1% indicates that a LEFT SHIFT is Present. MCH (RBC) [Entitic mass] 29.3 pg 27.0-32.0 [facility] Nucleated RBC/100 WBC (Bld) [Ratio] 0 % 0-5 [facility] Auto (RBC) [Mass/Vol]Or dered By: Dr. Watson on 11-08-2022 MCHC (RBC) [Mass/Vol] 30.7 g/dL 32-36 [facility] No Panel InformationOrdered By: Dr. Watson on 11-08-2022 Estimated GFR (MDRD) Amer 105 mL/min >60 [facility] Comment on above: GFR Calc Estimated GFR (MDRD) Non-Af Amer 87 mL/min >60 [facility] Comment on above: Non- GFR Calc Thyroid Stimulating Hormone (TSH) 1.12 uIU/mL 0.358-3.74 [facility] Platelets bldOrdered By: Dr. Watson on 11-08-2022 Platelets (Bld) [#/Vol] 334 10*3/uL 150-450 [facility] Serum or plasma albumin chema urement (mass/volume)Ordered By: Dr. Watson on 11-08-2022 Albumin [Mass/Vol] 3.3 g/dL 3.2-5.0 [facility] Serum or plasma albumin/glob ulin mass ratioOrdered By: Dr. Watson on 11-08-2022 Albumin/Globulin [Mass ratio] 0.8 {ratio} 0.9-2.4 [facility] Serum or plasma calcium chema urement (mass/volume)Ordered By: Dr. Watson on 11-08-2022 Calcium [Mass/Vol] 9.3 mg/dL 8.5-10.1 [facility] Serum or plasma creatinine m easurement (mass/volume)Ordered By: Dr. Watson on 11-08-2022 Creatinine [Mass/Vol] 0.75 mg/dL 0.55-1.02 [facility] Comment on above: The validity of the calculated GFR & GFRAA in patients over 70 years has not been determined. Clinical correlation is essential. Serum or plasma urea nitroge n measurement (mass/volume)Ordered By: Dr. Watson on 11-08-2022 Urea nitrogen [Mass/Vol] 10 mg/dL 7-18 [facility] Thin prep Papanicolaou smear with manual screeningOrdered By: Dr. Watson on 11-08-2022 Thin prep Papanicolaou smear with manual screening 21 U/L 15-37 [facility] Comment on above: Slight Hemolysis, Re sult may be falsely increased. Thin prep Papanicolaou smear with manual screening 7 5-[address] [facility] [address] BRAIN WO IVCONon 08-19-[address] BRAIN WO IVCON Final Report DATE OF EXAM: Aug 18 2020 10:27PM [facility] 0504 - CT BRAIN WO IVCON / [...] calvarial outer table bony exostosis (reference 4:80). Staff Nurse (topogram) images: No significant findings. IMPRESSION: No CT evidence of acute intracranial abnormality (within constraints of scan quality). Other: Few minor details above. Banana Ripening Room Supervisor: PSCB Transcribe Date/Time: Aug 18 2020 10:30P Dictated by : SHELDON MARQUEZ MD This examination was interpreted and the report reviewed and electronically signed by: SHELDON MARQUEZ MD on Aug 18 2020 10:33PM EST Normal [facility] CT CERVICAL SPINE WO IVCONon 08-19-2020 CT CERVICAL SPINE WO IVCON Final Report DATE OF EXAM: Aug 18 2020 10:30PM [facility] 0505 - CT CERVICAL SPINE WO IVCON [...] Counting reference: Craniocervical junction. Anatomic Variants: None. Staff Nurse (topogram) images: Unremarkable. Alignment: Alignment is anatomic. [...] and moderate bilateral foraminal stenosis at C6-7. Banana Ripening Room Supervisor: PSCB Transcribe Date/Time: Aug 18 2020 10:38P Dictated by : JOHN HASTINGS MD This examination was interpreted and the report reviewed and electronically signed by: JOHN HASTINGS MD on Aug 18 2020 10:41PM EST Normal [facility] XR KNEE 4V AP/LAT/OBLS LTon 08-19-2020 XR [...] SEVERE IN THE MEDIAL TIBIOFEMORAL JOINT MUÑIZ. Banana Ripening Room Supervisor: DEB Transcribe Date/Time: Aug 18 2020 11:22P Dictated by : RONNI SHARMA MD This examination was interpreted and the report reviewed and electronically signed by: RONNI SHARMA MD on Aug 18 2020 11:26PM EST Normal [facility] .Auto Diffon 07-11-2018 Ammonia (P) [Mass/Vol] 0.60 10 3/mcL Normal 0.15-1.00 [facility] ([place]) Comment on above: Performed By: #### C ISMAEL CARREON ANEU #### [address] [address] Basophils (Bld) [#/Vol] 0.10 10 3/mcL Normal 0.00-0.19 [facility] ([place]) Comment on above: Performed By: #### ISMAEL MCPHERSON ANEU #### [address] [address] Basophils/100 WBC (Bld) 0.7 % Normal 0.0-2.5 [facility] ([place]) Comment on above: Performed By: #### ISMAEL MCPHERSON ANEU #### [address] [address] Eosinophils (Bld) [#/Vol] 0.10 10 3/mcL Normal 0.00-0.40 [facility] ([place] Comment on above: Performed By: #### C BC, ADIFF, ANEU #### [address] [address] Eosinophils/100 WBC (Bld) 0.6 % Normal 0.0-7.0 [facility] ([place]) Comment on above: Performed By: #### C ISMAEL CARREON, ANEU #### [address] [address] Lymphocytes (Bld) [#/Vol] 1.60 10 3/mcL Normal 0.77-3.85 [facility] ([place]) Comment on above: Performed By: #### C ISMAEL CARREON, ANEU #### [address] [address] Lymphocytes/100 WBC (Bld) 12.7 % Normal 10.0-50.0 [facility] ([place]) Comment on above: Performed By: #### C ISMAEL CARREON, ANEU #### [address] [address] Monocytes/100 WBC (Bld) 4.6 % Normal 1.7-13.0 A [facility] ([place]) Comment on above: Performed By: #### ISMAEL MCPHERSON, ANEU #### [address] [address] Neutrophils/100 WBC (Bld) 81.4 % High 37.0-80.0 [facility] ([place]) Comment on above: Performed By: #### ISMAEL MCPHERSON, ANEU #### [address] [address] .GFRon 07-11-2018 GFR 97 ml/min/1.73sqm Normal [facility] ([place]) Comment on above: Result Comment: GFR [...] Performed By: #### G , BMP #### [address] [address] GFR Non- 80 ml/min/1.73sqm Normal [facility] ([place] Comment on above: Result Comment: GFR Population [...] Performed By: #### G , BMP #### [address] [address] .NEUABSon 07-11-2018 Neutrophils (Bld) [#/Vol] 10.10 10 3/mcL High 2.85-6.16 [facility] ([place] Comment on above: Performed By: #### ISMAEL MCPHERSON, KLEVER #### [address] [address] .Urinalysis Microscopic (AO) on 07-11-2018 RBC (U) [#/Vol] None Seen Normal None Seen [facility] ([place] Comment on above: Performed By: #### U A, UAMICAO #### [address] [address] UA Squam Epithelial None Seen Normal None Seen [facility] ([place] Comment on above: Performed By: #### U A, UAMICAO #### [address] [address] UA WBC None Seen Normal None Seen [facility] ([place] Comment on above: Performed By: #### Farshad Simmons UAMICAO #### [address] [address] BMPon 07-11-2018 Urea nitrogen [Mass/Vol] 15 mg/dL Normal 7-18 [facility] ([place] Comment on above: Performed By: #### Stephie FR, BMP #### [address] [address] Urea nitrogen/Creatinine [Mass ratio] 19 ratio Normal 7-27 [facility] ([place] Comment on above: Performed By: #### Stephie BETANCUR, BMP #### [address] [address] Calcium [Mass/Vol] 8.5 mg/dL Normal 8.4-10.2 [facility] ([place]) Comment on above: Performed By: #### Stephie BETANCUR, BMP #### [address] [address] Chloride [Moles/Vol] 102 mmol/L Normal 98-107 [facility] ([place]) Comment on above: Performed By: #### Stephie BETANCUR, BMP #### [address] [address] CO2 [Moles/Vol] 30 mmol/L High 22-29 [facility] ([place] Comment on above: Performed By: #### Stephie FR, BMP #### [address] [address] Creatinine [Mass/Vol] 0.78 mg/dL Normal 0.55-1.02 [facility] ([place]) Comment on above: Performed By: #### G FR, BMP #### [address] [address] Electrolyte Balance 8.0 mEq/L Normal [facility] ([place] Comment on above: Performed By: #### G FR, BMP #### [address] [address] Glucose [Mass/Vol] 117 mg/dL High 70-105 [facility] ([place] Comment on above: Performed By: #### G FR, BMP #### [address] [address] Potassium [Moles/Vol] 3.4 mmol/L Low 3.5-5.1 [facility] ([place]) Comment on above: Performed By: #### G , BMP #### [address] [address] Sodium [Moles/Vol] 140 mmol/L Normal 136-145 [facility] ([place]) Comment on above: Performed By: #### G , BMP #### [address] [address] CBCon 07-11-2018 Erythrocyte distribution width (RBC) [Ratio] 15.3 % High 11.5-14.5 [facility] ([place] Comment on above: Performed By: #### C ISMAEL CARREON, KLEVER #### [address] [address] Hematocrit (Bld) [Volume fraction] 41.4 % Normal 37.0-47.0 [facility] ([place] Comment on above: Performed By: #### ISMAEL MCPHERSON, ANEU #### [address] [address] Hemoglobin (Bld) [Mass/Vol] 13.2 G/dL Normal 12.0-16.0 [facility] ([place] Comment on above: Performed By: #### ISMAEL MCPHERSON, ANEU #### [address] [address] MCH (RBC) [Entitic mass] 29.5 pg Normal 27.0-31.2 [facility] ([place] Comment on above: Performed By: #### C ISMAEL CARREON, ANEU #### [address] [address] MCHC (RBC) [Mass/Vol] 32.0 G/dL Low 33.0-37.0 [facility] ([place]) Comment on above: Performed By: #### C BCISMAEL, ANEU #### [address] [address] MCV (RBC) [Entitic vol] 92.1 fL Normal 80.0-94.0 A [facility] ([place]) Comment on above: Performed By: #### ISMAEL MCPHERSON ANEU #### [address] [address] Platelet mean volume (Bld) [Entitic vol] 10.0 fL Normal 7.4-10.4 [facility] ([place] Comment on above: Performed By: #### ISMAEL MCPHERSON, ANEU #### [address] [address] Platelets (Bld) [#/Vol] 291 10 3/mcL Normal 130-400 [facility] ([place] Comment on above: Performed By: #### C ISMAEL CARREON, ANEU #### [address] [address] RBC (Bld) [#/Vol] 4.49 10 6/mcL Normal 4.20-5.40 [facility] ([place] Comment on above: Performed By: #### C ISMAEL CARREON, ANEU #### [address] [address] WBC (Bld) [#/Vol] 12.50 10 3/mcL High 4.60-10.80 [facility] ([place] Comment on above: Performed By: #### ISMAEL MCPHERSON, ANEU #### [address] [address] UAon 07-11-2018 Color (U) Yellow Normal [facility] ([place] Comment on above: Performed By: #### U A, UAMICAO #### [address] [address] Glucose (U) [Mass/Vol] Negative Normal Negative [facility] ([place] Comment on above: Performed By: #### U A, UAMICAO #### [address] [address] Ketones Ql (U) Negative Normal Negative [facility] ([place] Comment on above: Performed By: #### U A, UAMICAO #### [address] [address] UA Appear Clear Normal Clear [facility] ([place] Comment on above: Performed By: #### U A, UAMICAO #### [address] [address] UA Blood Negative Normal Negative [facility] ([place] Comment on above: Performed By: #### U A, UAMICAO #### [address] [address] UA Leuk Est Negative Normal Negative [facility] ([place] Comment on above: Performed By: #### U A, UAMICAO #### [place] [address] UA Nitrite Negative Normal Negative [facility] ([place] Comment on above: Performed By: #### U A, UAMICAO #### [place] [address] UA pH 6.5 [facility] ([place]) Comment on above: Performed By: #### U A, UAMICAO #### [address] [address] UA Protein Negative Normal Negative [facility] ([place] Comment on above: Performed By: #### U A, UAMICAO #### [address] [address] UA Spec Grav 1.015 Normal [facility] ([place] Comment on above: Performed By: #### U A, UAMICAO #### [address] [address] UA Specimen Type Clean Catch [facility] ([place]) Comment on above: Performed By: #### U A, UAMICAO #### [place] [address] UA Urobilinogen 0.2 E.U./dL [facility] ([place]) Comment on above: Performed By: #### U A, UAMICAO #### [place] [address] Urobilinogen Qn (U) Negative Normal Negative [facility] ([place]) Comment on above: Performed By: #### U BC Simmons #### [address] [address] CR Knee 1 or 2 Views Lefton 06-30-2018 CR Knee 1 or 2 Views Left Patient Name: MITCHELL BROOKS Diagnostic Radiology Exam Date/Time 06/29/2018 14:30:00 EST Exam CR Knee 1 or 2 Views Left Ordering Physician LOIS FONTANA Accession Number [id number] CPT4 Codes 73574 () Reason For Exam Other unilateral secondary [...] Transcribed Date and Time: 06/29/2018 11:32 Normal [facility] CR Knee Standing Bilateralon 06-30-2018 CR Knee Standing Bilateral Patient Name: MITCHELL BROOKS Diagnostic Radiology Exam Date/Time 06/29/2018 14:30:00 EST Exam CR Knee Standing AP Bilateral Ordering Physician LOIS FONTANA Accession Number [id number] CPT4 Codes 93132 () Reason For Exam Other unilateral secondary [...] Transcribed Date and Time: 06/29/2018 11:32 Normal [facility] .GFRon 05-09-2018 GFR 103 ml/min/1.73sqm Normal [facility] ([place] Comment on above: Result Comment: GFR Population [...] Performed By: #### B MP, GFR #### [place] [address] GFR Non- 85 ml/min/1.73sqm Normal [facility] ([place] Comment on above: Result Comment: GFR Population [...] Performed By: #### B MP, GFR #### [address] [address] BMPon 05-09-2018 Calcium [Mass/Vol] 9.5 mg/dL Normal 8.4-10.2 [facility] ([place]) Comment on above: Performed By: #### B MP, GFR #### [address] [address] Chloride [Moles/Vol] 102 mmol/L Normal 98-107 [facility] ([place] Comment on above: Performed By: #### B MP, GFR #### [address] [address] CO2 [Moles/Vol] 30 mmol/L High 22-29 [facility] ([place] Comment on above: Performed By: #### B MP, GFR #### [address] [address] Creatinine [Mass/Vol] 0.74 mg/dL Normal 0.55-1.02 [facility] ([place]) Comment on above: Performed By: #### B MP, GFR #### [address] [address] Electrolyte Balance 9.0 mEq/L Normal [facility] ([place] Comment on above: Performed By: #### B MP, GFR #### [address] [address] Glucose [Mass/Vol] 94 mg/dL Normal 70-105 [facility] ([place] Comment on above: Performed By: #### B MP, GFR #### [address] [address] Potassium [Moles/Vol] 4.3 mmol/L Normal 3.5-5.1 [facility] ([place]) Comment on above: Performed By: #### B MP, GFR #### [address] [address] Sodium [Moles/Vol] 141 mmol/L Normal 136-145 [facility] ([place] Comment on above: Performed By: #### B MP, GFR #### [address] [address] Urea nitrogen [Mass/Vol] 13 mg/dL Normal 7-18 [facility] ([place] Comment on above: Performed By: #### B MP, GFR #### [address] [address] Urea nitrogen/Creatinine [Mass ratio] 18 ratio Normal 7-27 [facility] ([place] Comment on above: Performed By: #### B MP, GFR #### [facility] [address] [place] [address] Vital Signs Date Time Vital Sign Value Performing Clinician Facility 04-24-2024 20:29-0400 Blood Pressure Location SCARLETT SEFFENS DIRECTOR PATIENT-SHELL ASSEMBLER [facility] 04-24-2024 20:29-0400 Blood Pressure Method SCARLETT SEFFENS DIRECTOR PATIENT-SHELL ASSEMBLER [facility] 04-24-2024 20:29-0400 Body temperature 96.8 [degF] SCARLETT SEFFENS DIRECTOR PATIENT-SHELL ASSEMBLER [facility] 04-24-2024 20:29-0400 Diastolic Blood Pressure Non-Invasive 64 mm[Hg] SCARLETT SEFFENS DIRECTOR PATIENT-SHELL ASSEMBLER [facility] 04-24-2024 20:29-0400 Heart rate 70 /min SCARLETT SEFFENS DIRECTOR PATIENT-SHELL ASSEMBLER [facility] 04-24-2024 20:29-0400 Systolic Blood Pressure Non-Invasive 100 mm[Hg] SCARLETT SEFFENS DIRECTOR PATIENT-SHELL ASSEMBLER [facility] 09-26-2022 14:12-0500 Body height 157.[address] Nabila Watson Work Phone: [facility] 09-26-2022 14:12-0500 Body mass index (BMI) [Ratio] 60.5 kg/m2 Dr. Nabila Watson Work Phone: [facility] 09-26-2022 14:12-0500 Body weight 150.[address] Nabila Watson Work Phone: [facility] [facility] Encounter Date Encounter Type Care Provider Facility Start: 03-28-2025 ambulatory Annette Samano NP Facili ty:[facility] Start: 02-05-2025 End: 02-05-2025 Follow-up encounter SCARLETT ROSENBERG DIRECTOR PATIENT-SHELL ASSEMBLER [facility] Start: 01-29-2025 End: 01-29-2025 ambulatory Annette Samano VISUAL DISPLAY ASSOCIATE-C Work Phone: [facility] Work Phone: Start: 01-29-2025 End: 01-29-2025 Patient encounter procedure Annette Samano VISUAL DISPLAY ASSOCIATE-C -Home Health Lab Start: 01-29-2025 End: 01-29-2025 ambulatory Annette Samano NP Facility:[facility] Start: 01-23-2025 End: 01-23-[address] REUBEN LION MD Facility:[facility] Start: 01-23-2025 End: 01-23-[address] REUBEN LION MD [facility] Start: 01-09-2025 End: 01-24-2025 Evaluation and management of inpatient KEATON Wahl JAIMIE DIRECTOR PATIENT-SHELL ASSEMBLER [facility] Start: 01-02-2025 End: 01-09-2025 Evaluation and management of inpatient DR JAKE COPPOLA DO [facility] Start: 01-01-2025 End: 01-02-2025 Emergency department patient visit DR JAKE COPPOLA DO Facility:[facility] Start: 12-28-2024 End: 12-28-2024 Emergency department patient visit ANNETTE SAMANO Facility:[facility] Start: 12-25-2024 End: 12-25-2024 Emergency department patient visit ANNETTE SAMANO Facility:[facility] Start: 06-24-2024 ambulatory Yung Elier Facility:[facility] Start: 05-16-2024 End: 05-16-2024 ambulatory Yung Elier Facility:[facility] Start: 04-24-2024 End: 04-24-2024 AMB External Visit SCARLETT BAHENAWANDER DIRECTOR PATIENT-SHELL ASSEMBLER [facility] Start: 04-05-2024 End: 04-05-2024 Emergency department patient visit MELODIE BLANCAS Facility:[facility] Start: 03-25-2024 End: 04-17-2024 Telephone encounter Joyce Sierra DIRECTOR PATIENT - SHELL ASSEMBLER Work Phone: [facility] Comment on above: Cancelled Appointmen t Start: 02-16-[address] Agustin Carrillo Facility:[id number] Start: 01-26-2023 Telephone encounter Nabila pope MD Work Phone: Hematology Comment on above: Patient Question (Re ferral ) Start: 01-10-2023 End: 01-14-2023 Evaluation and management of inpatient ROMÁN CHANDLER Facility:[facility] Start: 11-08-2022 End: 11-08-[address] Nabila Watson Work Phone: [facility] Work Phone: Start: 11-08-2022 End: 11-08-[address] [facility]abil[facility] Start: 09-26-2022 End: 09-26-[address] Nabila Watson Work Phone: [facility] Start: 07-24-2022 Refill West Gonzalez DIRECTOR PATIENT.SHELL ASSEMBLER Work Phone: [facility] Comment on above: Refill Request Start: 06-24-2022 ambulatory Geraldine Suggs MA [facility] Comment on above: ED OUTREACH (ED OUTR EACH/) Start: 11-26-2021 End: 11-26-[address] Nabila Watson Work Phone: [facility] Start: 11-26-2021 End: 11-26-[address] Nabila Watson Work Phone: [facility] Start: 06-29-2018 Patient encounter procedure [facility] Procedures Date Procedure Procedure Detail Performing Clinician Start: 01-29-2025 Urnls dip stick/tabl et reagent auto microscopy Annette Samano VISUAL DISPLAY ASSOCIATE-C Work Phone: Start: 01-29-2025 Urine culture Annette lombardi VISUAL DISPLAY ASSOCIATE-C Work Phone: Start: 02-16-2023 Follow-up visit Start: 07-19-2016 Klippel-Feil sequenc e (disorder) SCARLETT ROSENBERG DIRECTOR PATIENT-SHELL ASSEMBLER Comment on above: C5-C6 Start: 09-04-2014 Mammography Geraldine Klicm an MA Abdominal (qualifier value) SCARLETT ROSENBERG DIRECTOR PATIENT-SHELL ASSEMBLER Cellulitis (morpholo gic abnormality) SCARLETT ROSENBERG DIRECTOR PATIENT-SHELL ASSEMBLER Cellulitis (morpholo gic abnormality) DR REUBEN LION MD Comment on above: inner upper thigh- R T side section SCARLETT BARROS DIRECTOR PATIENT-SHELL ASSEMBLER Comment on above: 1993 and 1995 Epidural injection o f lumbar spine using fluoroscopic guidance SCARLETT ROSENBERG DIRECTOR PATIENT-SHELL ASSEMBLER Tonsillectomy and adenoidectomy SCARLETT ROSENBERG DIRECTOR PATIENT-SHELL ASSEMBLER Plan of Treatment Date Care Activity Detail Author Start: 2034 RSV Immunization aged 60 or older (1 - 1-dose 60+ series) RSV Immunization aged 60 or older (1 - 1-dose 60+ series) [facility] Start: 03-29-2028 DTaP/Tdap/Td Vaccines (7 - Td or Tdap) DTaP/Tdap/Td Vaccines (7 - Td or Tdap) [facility] Start: 03-29-2028 Urine microalbumin profile DTAP,TDAP,TD (7 - Td or Tdap) [facility] Start: 01-13-2026 DIABETES SCREEN DIABETES SCREEN [facility] Start: 06-22-2025 DIABETES SCREEN DIABETES SCREEN [facility] Start: 06-22-2025 Urine microalbumin profile DTAP,TDAP,TD (6 - Td or Tdap) [facility] Start: 07-01-2024 End: 07-01-2024 Patient encounter procedure 07/01/2024 11:20 AM EST Office Visit [facility] [address] [place] [address] Joyce Sierra APRN - [address] [id number] [facility] Start: 04-14-2024 COVID-19 Vaccine ( season) COVID-19 Vaccine ( season) [facility] Start: 04-14-2024 Influenza vaccination Influenza Vaccine (#1) [facility] Start: 2024 Zoster Vaccines (1 of 2) Zoster Vaccines (1 of 2) [facility] Start: 08-14-2022 DEPRESSION ASSESSMENT DEPRESSION ASSESSMENT [facility] Start: 04-14-2022 Influenza vaccination INFLUENZA (#1) [facility] Start: 08-14-2021 DEPRESSION ASSESSMENT DEPRESSION ASSESSMENT [facility] Start: 03-02-2020 HPV TESTING HPV TESTING [facility] Start: 03-02-2020 PAP TESTING PAP TESTING [facility] Start: 2019 COLOGUARD (FIT-DNA) COLOGUARD (FIT-DNA) [facility] Start: 2019 COLORECTAL CANCER SCREENING COLORECTAL CANCER SCREENING [facility] Start: [address] COLONOGRAPHY [facility] Start: 2019 FECAL OCCULT BLOOD FECAL OCCULT BLOOD [facility] Start: 2019 LIPID SCREEN LIPID SCREEN [facility] Start: 2019 SIGMOIDOSCOPY SIGMOIDOSCOPY [facility] Start: 05-10-2018 PNEUMOCOCCAL (2 - PCV) PNEUMOCOCCAL (2 - PCV) [facility] Start: 05-10-2018 Pneumococcal Vaccine: Pediatrics (0 to 5 Years) and At-Risk Patients (6 to 64 Years) (2 of 2 - PCV) Pneumococcal Vaccine: Pediatrics (0 to 5 Years) and At-Risk Patients (6 to 64 Years) (2 of 2 - PCV) [facility] Start: 09-04-2015 Mammography MAMMOGRAM [facility] Start: 09-04-2015 PNEUMOCOCCAL (2 - PCV) PNEUMOCOCCAL (2 - PCV) [facility] Start: 2014 Screening for malignant neoplasm of breast Mammogram [facility] Start: 04-19-2013 COLORECTAL CANCER SCREENING COLORECTAL CANCER SCREENING [facility] Start: 2004 Screening for malignant neoplasm of cervix [facility] Start: 2004 Zoledronic acid therapy ALPHA-1 ANTITRYPSIN DEFICIENCY SCREENING [facility] Start: 1995 Screening for malignant neoplasm of cervix Pap Smear [facility] Start: 1993 Hepatitis B Vaccines (1 of 3 - 19+ 3-dose series) Hepatitis B Vaccines (1 of 3 - 19+ 3-dose series) [facility] Start: 1992 ANNUAL PCP TEAM CHRONIC DISEASE VISIT ANNUAL PCP TEAM CHRONIC DISEASE VISIT [facility] Start: 1992 BP CONTROLLED (<130/80) BP CONTROLLED (<130/80) [facility] Start: 1992 Colonoscopy COLONOSCOPY [facility] Start: 1992 Diabetes mellitus screening Diabetes Screening [facility] Start: 1992 HEPATITIS C SCREENING HEPATITIS C SCREENING [facility] Start: 1992 Hepatitis C screening Hepatitis C Screening [facility] Start: 1992 HIV SCREENING HIV SCREENING [facility] Start: 1992 SPIROMETRY SPIROMETRY [facility] Start: 1986 Depression Screening Depression Screening [facility] Start: 1974 COVID-19 VACCINE (#1) COVID-19 VACCINE (#1) [facility] Start: 1974 HEPATITIS B (1 of 3 - 3-dose series) HEPATITIS B (1 of 3 - 3-dose series) [facility] Start: 1974 HIV screening HIV Screening [facility] Start: 1974 Lipid panel Lipid Panel [facility] Start: 1974 Screening for malignant neoplasm of colon [facility] Start: 1974 Thyroid stimulating hormone measurement TSH Level [facility] Immunizations Immunization Date Immunization Notes Care Provider Chichi sheriff 06-22-2022 influenza virus vacc ine, unspecified formulation [place] DIRECTOR PATIENT.SHELL ASSEMBLER Work Phone: [facility] 04-19-2018 influenza virus vacc ine, unspecified formulation SCARLETT SEFFENS DIRECTOR PATIENT-SHELL ASSEMBLER [facility] 04-19-2018 influenza, injectabl e, quadrivalent, preservative free [place] DIRECTOR PATIENT.SHELL ASSEMBLER Work Phone: [facility] 03-29-2018 tetanus toxoid, redu anthony diphtheria toxoid, and acellular pertussis vaccine, adsorbed [place] DIRECTOR PATIENT.SHELL ASSEMBLER Work Phone: [facility] 05-10-2017 influenza virus vacc ine, unspecified formulation SCARLETT SEFFENS DIRECTOR PATIENT-SHELL ASSEMBLER [facility] 05-10-2017 influenza, injectabl e, quadrivalent, preservative free [place] DIRECTOR PATIENT.SHELL ASSEMBLER Work Phone: [facility] 05-10-2017 pneumococcal polysaccharide vaccine, 23 valent [place] DIRECTOR PATIENT.SHELL ASSEMBLER Work Phone: [facility] 06-22-2015 tetanus toxoid, redu anthony diphtheria toxoid, and acellular pertussis vaccine, adsorbed Geraldine Suggs MA [facility] 09-04-2014 influenza virus vacc ine, unspecified formulation SCARLETT SEFFENS DIRECTOR PATIENT-SHELL ASSEMBLER [facility] 09-04-2014 influenza, seasonal, injectable Geraldine Suggs MA [facility] 09-04-2014 pneumococcal polysaccharide vaccine, 23 valent Geraldine Suggs MA [facility] 06-24-2013 influenza virus vacc ine, unspecified formulation Geraldine Suggs MA [facility] 04-12-1989 mumps virus vaccine Geraldine Suggs MA [facility] 04-12-1986 mumps virus vaccine Geraldine Suggs MA [facility] 11-25-1983 trivalent poliovirus vaccine, live, oral Geraldine Suggs MA [facility] 03-29-1976 diphtheria, tetanus toxoids and acellular pertussis vaccine Geraldine Suggs MA [facility] 03-29-1976 measles, mumps and rubella virus vaccine Geraldine Suggs MA [facility] 03-29-1976 trivalent poliovirus vaccine, live, oral Geraldine Suggs MA [facility] 1974 diphtheria, tetanus toxoids and acellular pertussis vaccine Geraldine Es [facility] 1974 trivalent poliovirus vaccine, live, oral Geraldine Suggs MA [facility] 1974 diphtheria, tetanus toxoids and acellular pertussis vaccine Geraldine Suggs MA [facility] 1974 trivalent poliovirus vaccine, live, oral Geraldine Suggs MA [facility] 1974 diphtheria, tetanus toxoids and acellular pertussis vaccine [facility] 1974 trivalent poliovirus vaccine, live, oral Geraldine Es [facility] Payers Date Payer Category Payer Self-pay [id number] 2024 Unknown [id number] [facility] [id number] 2016 Medicaid [id number] 2016 Unknown [id number] 1974 Unknown [id number] 2.16.8 [id number] 1974 Unknown [id number] 2.16. [id number] 1974 Unknown [id number] 2.16. [id number] 1974 Unknown [id number] 2.16. [id number] 1974 Unknown [id number] 2.16. [id number] 1974 Unknown [id number] 2.16.8 [id number] Unknown Unknown [id number] 2.16.8 [id number] Unknown [id number] 2.16.8 [id number] Unknown [id number] 2.16.8 [id number] Unknown [id number] 2.16.8 [id number] Social History Date Type Detail Facility Start: 11-26-2021 End: 09-26-2022 Tobacco smoking status MDIS Unknown if ever smoked [facility] Start: 07-11-2017 None [facility] Start: 07-11-2017 Spouse/ Signif icant Other [facility] Start: 01-08-2021 Cigarettes [facility] Start: 1975 Sex Assigned At Female [facility] Start: 06-22-2022 End: 11-23-2023 Tobacco smoking status NHIS Smokes tobacco daily [facility] History of tobacco use Cigarette Smoker [facility] Start: 06-22-2022 End: 08-02-2022 Cigarettes smoked current (pack per day) - Reported 0.5 [facility] Start: 06-22-2022 Tobacco use and exposure Smokeless tobacco non-user [facility] Start: 06-22-2022 End: 01-10-2023 Alcohol intake Current non-drinker of alcohol (finding) [facility] Start: 06-22-2022 Tobacco Comment down to maybe 6 cigarettes through the day [facility] Start: 06-12-2022 End: 06-22-2022 Exposure to SARS-CoV-2 (event) Not sure [facility] Start: 01-10-2023 History SDOH Financial 4 [facility] Start: 08-02-2022 Alcoholic beverage intake Current drinker of alcohol (finding) [facility] Start: 08-02-2022 Tobacco use panel [facility] Start: 03-28-2024 Tobacco smoking status Heavy t obacco smoker (finding) [facility] Comment on above: Smoking since age 15 Start: 07-23-2024 Tobacco smoking status Light t obacco smoker (finding) [facility] Comment on above: Smoking since age 15 Sexual Orientation Nuzhat [employer] Start: 07-09-2019 Sex Female (finding) [facility] Medical Equipment Procedure Code Equipment Code Equipment Origin al Text Equipment Identifier Dates Spacer Avs 4d 7m m Spinal Bone Plug - [id number] Start: 07-18-2016 Plate Aviator Titanium 12x17.4x2.5mm Bone Level 1 Automatic Lock System - [id number] Start: 07-18-2016 Screw Aviator 4m m Titanium 16mm Bone Variable Angle Self Drill Nonsterile - [id number] Start: 07-18-2016 Tube 6mm Cuf Pro x Ext Trchsf - [id number] Start: 08-02-2013 Clinical Notes 05-10-2013 to 02-05-2025 Note Date & Type Note Facility 02-05-2025 Primary care Note Chief Complaint Hospital follow up, spinal stenosis, left foot pain, right leg pain History of Present Illness Mitchell was seen in her home today with her significant other present. Hospital follow-up, was admitted 01/02/2025 to [facility] through the [facility] and discharged home from Rehab at [facility] on 01/24/2025. Presented to the ED on [...] to go: Yes. Financial concerns: No. Primary Fitness And Wellness Director: self. Lives In: Mobile home. Current Home [...] pain management, appointment with Dr. Acevedo at [facility] on March 03. The patient could benefit [...] home health nurse there is a mobile embroidery worker in the area. Will see if can get her in with that person. 6. Impaired ambulation Acute on chronic: DME ordered Walker and BSC ordered. Will have nursing fax orders to [facility] in [place]. 7. UTI (urinary tract infection) Acute: continue [...] a day Duration: 10 Days Pickup at [facility] Unchanged acetaminophen (Tylenol) 650 Milligram by [...] prescriber if questions or concerns Pharmacy Information [facility]: [address] [place], [place] [id number] [phone] What How Much When Comments Stop Taking bismuth subsalicylate (Pepto Bismol Liquicaps 262 mg oral capsule) 2 cap by mouth Every 30 minutes not to exceed 8 capsules/ day Stop Taking sulfamethoxazole-trimethoprim (Bactrim DS 800 mg-160 mg oral tablet) 1 tab(s) by mouth Every 12 hours Duration: 5 Days Digitally Signed by SCARLETT ROSENBERG on 02/05/2025 06:03 PM [facility] 01-24-2025 Note Discharge Instructions Thank you for [...] From Your Doctor You were admitted to [facility] transitional care program after a stay at [facility] for ongoing rehab. You have progressed [...] to the ED. Thank you for choosing [facility] transitional care program. We wish you well as you transition home today! Scheduled Follow-Up Appointments Appointment Type When With Where Contact Information StatusNS OV 02/17/2025 02:30 PM EDT LEEANN KING MD Neurosurgery [address] [address] Confirmed GS OV Check Up 04/03/2025 02:00 PM EDT REUBEN LION JR, MD [facility] Confirmed Follow Up Appointments Follow Up with ANNETTE SAMANO APRN-QUETA When:Within 3-5 days Where:[address] [facility] [place] [phone] Additional Information: Please call to schedule your post-hospital follow-up appointment. Follow Up with LEEANN KING MD, Neurosurgery When:02/17/2025 02:30 PM EDT Where:[address] [place] [phone] Additional Information: This is your neurosurgery appointment. [...] spinal stenosis Duration: 7 Days Pickup at [facility] 01/23 @ 10 pm Unchanged acetaminophen [...] a day 01/24@ 9 am Pharmacy Information [facility]: [address] [place], [place] [id number] [phone] Please take this list to your next [...] risk of getting burned. General instructions Take uzow-cyj-hnibjad and prescription medicines only as told by [...] 10/20/2004 Document Revised: 07/13/2018 Document Reviewed: 07/05/2017 [employer] Patient Education 2020 Figure 8 Surgical. Weakness Weakness is a lack of strength. [...] about working with a physical therapist or hearing dog trainer to help you get stronger. General instructions Take nryf-plw-etfvgaw and prescription medicines only as told by [...] 07/13/2009 Document Revised: 03/06/2019 Document Reviewed: 03/06/2019 [employer] Patient Education 2020 Figure [employer] Surgical. Additional Information VACCINATE! IT SAVES LIVES! Members of the community who have not yet received the COVID-19 vaccine and would like to receive it can visit one of [facility] vaccine clinics. There are many vaccine clinic locations within the [facility]. For locations and available times, please visit [email or web address] .[email or web address] It is important to note that some COVID mobile vaccine clinics are held outdoors and may be canceled in rainy or stormy conditions. To learn more about pediatric vaccinations (ages 5-11), we invite you to visit the [facility] webpage. [email or web address]/page [email or web address]-[email or web address]-[email or web address]-Frequently -[email or web address]-Questions.html To learn more about the COVID-19 vaccine, we invite you to visit the CDC website for a list of frequently asked questions.https://www.cdc.gov/coron avirus/2019-ncov/vaccines/faq.html [employer] Patient Portal Access Instructions: Stay connected with your healthcare team and access your personal medical information anytime with the [employer] Patient Portal. Please follow the directions below to create your [employer] account: 1.Access the email account you provided upon registration to the hospital/physician office.2.Look for an invitation email from [facility].3.Open the email and access the invitation link: [facility].4.Fill in the required choudhury to create your account. To access your account, visit [email or web address]. Click the blue button labeled "Access Patient [...] you will allow to register on the [facility] [employer] [facility] Patient Portal for access to your information. You can also access the [facility] Patient Portal on the [facility] kvng. Simply click on "Patient Portal" and then log into your account. If you would like to receive a full copy of your medical records, please contact the [facility] Medical Records Department by calling [phone], Monday through Monday between 8 a.m. and [...] Call your local pharmacy or go to [email or web address] [email or web address] to find one close to you.3.Make use of household items: Use cat litter or old coffee grounds to dispose medications if other options are not available. Mix your drugs with these household products, seal them in an airtight container and throw it into the garbage. Call [facility]: [phone] to be sure your drugs can be [...] Signatures Patient Education Materials Spinal Stenosis Weakness, Ryme-pb-Qmmm Medication Leaflets My discharge plan and instructions have been reviewed and explained to me and I,MITCHELL BROOKS understand my current condition and have read and understand these discharge instructions. I have received a written copy of the plan/instructions. If I have questions, I am aware that I should contact my doctor. Patient/Department Assistant Signature: ____ Date/Time: Relationship to Patient: __ Witness Name/Signature: Date/Time: [facility] 01-23-2025 Hospital Discharge instructions Patient Education 01/23/2025 [...] risk of getting burned. General instructions Take lyym-fax-lbjpvsx and prescription medicines only as told by [...] 10/20/2004 Document Revised: 07/13/2018 Document Reviewed: 07/05/2017 [employer] Patient Education 2020 Figure 8 Surgical. 01/23/2025 13:34:24 Weakness, Vhyl-un-Hcpc Weakness Weakness is a lack of strength. [...] about working with a physical therapist or hearing dog trainer to help you get stronger. General instructions Take zhzh-dxh-bqnepxu and prescription medicines only as told by [...] 07/13/2009 Document Revised: 03/06/2019 Document Reviewed: 03/06/2019 [employer] Patient Education 2020 [employer] Follow Up Care 01/09/2025 09:52:50 With:ANNETTE SAMANO DIRECTOR PATIENT-SHELL ASSEMBLER Address: [address] [facility] [place] [phone] When:3-5 days Comments:Please call to schedule your post-hospital follow-up appointment. With:LEEANN KING MD, Neurosurgery Address: [address] [facility] [address] [place] [phone] When:02/17/2025 14:30:00 Comments:This is your neurosurgery appointment. Follow-up as scheduled. [facility] 01-21-2025 Note Date of Service 01/21/2025 Chief Complaint Ischemia Subjective 49-year-old female with past medical history significant for HTN, HLD, paroxysmal atrial fibrillation not anticoagulated, COPD, neuropathy, fibromyalgia, bipolar disorder, anxiety, GERD, pulmonary hypertension, IBS, hypothyroidism, morbid obesity, lumbar spinal stenosis, chronic pain following with pain management. Patient originally presented to [facility] 01/01/2025 with acute on chronic back pain that was limiting her mobility. CT lumbar spine at outside hospital done 12/25 that was limited due to body habitus however it did show narrowing of the canal and foramina in the lower lumbar region. MRI of the lumbar spine done at [facility] showing bilateral facet joint cyst L3-L4 resulting in severe canal stenosis. Patient was also noted to have a large midsternal hematoma extending out laterally to both breasts. She denied any trauma. Does take Plavix. CT of the chest with contrast showed large deep right breast/chest wall hematoma. Prominent adjacent induration could be inflammatory or represent contusion. Patient was transferred to [facility] with consults to neurosurgery, hematology, general surgery. She was a surgical candidate but opted for nonsurgical intervention. She underwent epidural injection on 01/07/2025. For chest hematoma she was evaluated by hematology and general surgery. Plan was for patient to follow-up with general surgery, Dr. Lion, in 2 weeks. She was evaluated by therapy with recommendation for inpatient rehab. She was subsequently admitted to [facility] TCU. Patient has been progressing well with [...] stenosis Patient underwent epidural injection 01/07/2025 at [facility]. She is due to follow-up with neurosurgery [...] may include grammatical and/or spelling errors. CPT 10107 Time Spent 28 minutes Digitally Signed by WEST SPENCER on 01/21/2025 02:13 PM [facility] 01-16-2025 Note Date of Service 01/16/2025 Chief Complaint Asthenia, lumbar spinal stenosis Subjective 49-year-old female with past medical history significant for HTN, HLD, paroxysmal atrial fibrillation not anticoagulated, COPD, neuropathy, fibromyalgia, bipolar disorder, anxiety, GERD, pulmonary hypertension, IBS, hypothyroidism, morbid obesity, lumbar spinal stenosis, chronic pain following with pain management. Patient originally presented to [facility] 01/01/2025 with acute on chronic back pain that was limiting her mobility. CT lumbar spine at outside hospital done 12/25 that was limited due to body habitus however it did show narrowing of the canal and foramina in the lower lumbar region. MRI of the lumbar spine done at [facility] showing bilateral facet joint cyst L3-L4 resulting in severe canal stenosis. Patient was also noted to have a large midsternal hematoma extending out laterally to both breasts. She denied any trauma. Does take Plavix. CT of the chest with contrast showed large deep right breast/chest wall hematoma. Prominent adjacent induration could be inflammatory or represent contusion. Patient was transferred to [facility] with consults to neurosurgery, hematology, general surgery. She was a surgical candidate but opted for nonsurgical intervention. She underwent epidural injection on 01/07/2025. For chest hematoma she was evaluated by hematology and general surgery. Plan was for patient to follow-up with general surgery, Dr. Lion, in 2 weeks. She was evaluated by therapy with recommendation for inpatient rehab. She was subsequently admitted to [facility]. Patient has been progressing well with [...] stenosis Patient underwent epidural injection 01/07/2025 at [facility]. She is due to follow-up with neurosurgery [...] may include grammatical and/or spelling errors. CPT 47776 Time Spent 30 minutes Digitally Signed by WEST SPENCER on 01/16/2025 12:24 PM [facility] 01-16-2025 Note . MICRO - Microbiology PROCEDURE: [...] Locations *1: This test was performed at: [facility], [address] [place] [address], [address] , [facility] 01-15-2025 Pastoral care Progress note Pastoral Care [...] is having her breakfast but welcomes this shower attendant to sit with her; pt talks about [...] by Mauro Lara on 01/15/2025 08:55 AM [facility] 01-12-2025 Note Date of Service 01/12/2025 Chief [...] up in bed. Patient advised to notify VISUAL DISPLAY ASSOCIATE if they are warm to touch and [...] placed to PT and OT - following. adult protective caseworker following for discharge planning. Insurance update due 01/20. 2. Bipolar disorder Chronic. Continue current home medications. Decreased Seroquel to 50 mg PO qhs due to patient request as she is groggy and not being able to make it to the [facility]. Ordered: 3. Chronic obstructive pulmonary disease (COPD) [...] collaborating with physician, and documenting in chart. CPT#53402 Digitally Signed by KEATON ETIENNE on 01/12/2025 09:44 AM [facility] 01-10-2025 Evaluation + Plan note Extrac grabiel from: Title:History and Physical Author:KEATON ETIENNE APRN-SHELL ASSEMBLER Date:01/10/25 1. Asthenia Consult placed to PT and OT. adult protective caseworker following for discharge planning. 2. Bipolar disorder [...] with physician, and documenting in chart. CPT# 37473 Future Appointments Appointment Date:02/17/2025 02:30:00 PM Scheduled Provider:LEEANN KING MD Location:NEUROS Appointment Type:NS OV Appointment Date:04/03/2025 02:00:00 PM Scheduled Provider:REUBEN LION JR, MD Location:Gen Surg CAN Appointment Type: OV Check Up Future Scheduled Tests Laboratory* Thyroid Stimulating Hormone 06/23/24 * Complete Blood Count 06/23/24 * Lipid Profile 06/23/24 * Complete Metabolic Panel 06/23/24 [facility] 05-30-2025 Note Date of Service 01/10/2025 Chief Complaint weakness History of Present Illness Patient is a 49-year-old female, who follows with Annette Samano CNP with a past medical history significant for COPD, hypertension, dyslipidemia, atrial fibrillation, IBS, and morbid obesity, presented to [facility] swing program for ongoing rehab after a hospital stay at [facility]. Patient was initially admitted to [facility] on 01/01/2025 due to severe low back pain radiating down both legs. An MRI of the lumbar spine showed bilateral facet joint cyst L3-E0ptabgjqas in severe canal stenosis. She was transferred to [facility] for neurosurgery evaluation. Neurosurgery evaluated patient [...] Patient was medically optimized and transferred to [facility] yesterday. Patient seen and [...] Asthenia Consult placed to PT and OT. adult protective caseworker following for discharge planning. 2. Bipolar disorder [...] with physician, and documenting in chart. CPT# 29548 Problem List/Past Medical History Ongoing Angina at [...] Constant Order Digitally Signed by KEATON ETIENNE APRN-SHELL ASSEMBLER on 01/10/2025 01:15 PM Digitally Signed by JUSTIN TIJERINA MD FACP on 01/14/2025 09:10 AM [facility]05-29-2025 NoteORIGINAL PROCEDURE: Lumbar Epidural Injection with Fluoroscopic Guidance CLINICAL STATEMENT: Low back pain HEAVY DUTY MECHANIC: Chapis Soto PA-C ANESTHESIA: Local NEEDLE: [...] Sign Date: 01/09/2025 6:22:05 PM Ordering Provider: [facility]05-29-2025 Hospital Discharge instructions Patient Education 01/09/2025 12:50:18 [...] risk of getting burned. General instructions Take qree-fwj-oedvfbf and prescription medicines only as told by [...] 10/20/2004 Document Revised: 07/13/2018 Document Reviewed: 07/05/2017 [employer] Patient Education 2020 [employer]. Follow Up Care 01/02/2025 15:32:45 With:LEEANN KING Neurosurgery Address: [address] [facility] [address] [place] [address]- [phone] Business (1) When: Unknown Comments:Call for appointment With:ANNETTE SAMANO Address: [address] [place] [address]- [phone] Business (1) When: only if needed With:[facility] Bed [phone] Address: When: Unknown Comments:Room 232 With:REUBEN LION JR, MD, Surgery Address: [address] [facility] [address] [place] [address] [phone] When:01/23/2025 13:15:00 Comments:For follow up of breast/chest hematoma [facility] 05-29-2025 Note Discharge Instructions Thank you for allowing [facility] to assist you with your healthcare needs. The following is importantdischarge information regarding your hospital visit. Your Care Team ANNETTE SAMANO DIRECTOR PATIENT-SHELL ASSEMBLER Your Diagnosis Allergic rhinitis Arthritis of [...] Follow Up with Benjamin MORALES Where:[address] [facility] [address] [place] [address]- [phone] Business (1) Additional Information: Call for appointment Follow Up with ANNETTE SAMANO When:Only if needed Where:[address] [place] [address] [phone] Business (1) Follow Up with [facility] [phone] Additional Information: Room 232 Follow Up with REUBEN LION JR, MD, Surgery When:01/23/2025 01:15 PM EDT Where:[address] [facility] [address] [place] [address]- [phone] Additional Information: For follow up of breast/chest [...] risk of getting burned. General instructions Take qenn-htq-kpklcqy and prescription medicines only as told by [...] 10/20/2004 Document Revised: 07/13/2018 Document Reviewed: 07/05/2017 [employer] Patient Education 2020 [employer] Additional Information VACCINATE! IT SAVES LIVES! Members of the community who have not yet received the COVID-19 vaccine and would like to receive it can visit one of [facility] vaccine clinics. There are many vaccine clinic locations within the [facility]. For locations and available times, please visit [email or web address].[place].gov/. It is important to note that some COVID mobile vaccine clinics are held outdoors and may be canceled in rainy or stormy conditions. To learn more about pediatric vaccinations (ages 5-11), we invite you to visit the [facility] webpage. https://www.[facility].org/pages/4755-Rwyrf-Irdqkfnknli-Mnrthvapjj-Ubeat-Tnd stions.htmlTo learn more about the COVID-19 vaccine, we invite you to visit the CDC website for a list of frequently asked questions.https://www.cdc.gov/coronavirus/2019-ncov/vaccines/faq.html [facility] Patient Portal Access Instructions: Stay connected with your healthcare team and access your personal medical information anytime with the [facility] Patient Portal. Please follow the directions below to create your [facility] account: 1.Access the email account you provided upon registration to the hospital/physician office.2.Look for an invitation email from [facility].3.Open the email and access the invitation link: AcceptInvitation to [facility].4.Fill in the required choudhury to create your account. To access your account, visit [email or web address]. Click the blue button labeled "Access Patient Portal" and then log in with the username and password that you created in the steps above. You will be able to view your test results, lab results, a summary of your visits, upcoming appointments and more. There is also a convenient messaging option where you can send secure messages to your [employer]. In addition, you will have the ability to download any documents or summaries to your computer and/or send the information securely to a physician. Remember that your healthcare information is confidential, so carefully consider who you will allowto register on the [facility] Patient Portal for access to your information. You can also access the [facility] Patient Portal on the [facility] kvng. Simply click on "Patient Portal" and then log into your account. If you would like to receive a full copy of your medical records, please contact the [facility] Medical Records Department by calling [phone], Monday through Monday between 8 a.m. and [...] Call your local pharmacy or go to http://bit.Tuxebo/3R7Pp2s to find one close to you.3.Make use of household items: Use cat litter or old coffee grounds to dispose medications if other options arenot available. Mix your drugs with these household products, seal them in an airtight container andthrow it into the garbage. Call [facility]: [phone] to be sure your drugs can be [...] aware that I should contact my doctor. Patient/Department Assistant Signature: Date/Time: Relationship to Patient: Witness Name/Signature: Date/Time: [id number] Note Discharge Instructions Thank you for allowing [facility] to assist you with your healthcare needs. The following is importantdischarge information regarding your hospital visit. Your Care Team ANNETTE SAMANO DIRECTOR PATIENT-SHELL ASSEMBLER Your Diagnosis Allergic rhinitis Arthritis of both knees Back pain Bipolar disorder Breast mass Chronic obstructive pulmonary disease (COPD) Essential hypertension Fibromyalgia GERD (gastroesophageal reflux disease) History of atrial fibrillation Lumbar stenosis What to do next Scheduled Follow-Up Appointments Appointment Type When With Where Contact Information Status[facility] Hospital Follow Up 01/23/2025 01:15 PM EDT REUBEN LION JR, MD [facility] Surgery Confirmed Follow Up Appointments Follow Up with LEEANN KING, Neurosurgery Where:[address] [facility] [address] [facility] [place] [address] [phone] Business (1) Additional Information: Call for appointment Follow Up with ANNETTE SAMANO When:Only if needed Where:[address] [facility] [place] [address] [phone] Business (1) Follow Up with [facility] [phone] Additional Information: Room 232 Follow Up with REUBEN LION JR, MD, Surgery When:01/23/2025 01:15 PM EDT Where:[address] [facility] [address] [place] [address]- [phone] Additional Information: For follow up of breast/chest [...] risk of getting burned. General instructions Take elka-iqc-bnusaqi and prescription medicines only as told by [...] 10/20/2004 Document Revised: 07/13/2018 Document Reviewed: 07/05/2017 [employer] Patient Education 2020 [employer] Additional Information VACCINATE! IT SAVES LIVES! Members of the community who have not yet received the COVID-19 vaccine and would like to receive it can visit one of [facility] vaccine clinics. There are many vaccine clinic locations within the [facility]. For locations and available times, please visit [email or web address].[place].gov/. It is important to note that some COVID mobile vaccine clinics are held outdoors and may be canceled in rainy or stormy conditions. To learn more about pediatric vaccinations (ages 5-11), we invite you to visit the [facility] webpage. https://www.[facility].org/pages/0759-Xgdqd-Axnooeqxfuj-Gebznxnkzu-Gcafa-Qzz stions.htmlTo learn more about the COVID-19 vaccine, we invite you to visit the CDC website for a list of frequently asked questions.https://www.cdc.gov/coronavirus/2019-ncov/vaccines/faq.html [facility] Patient Portal Access Instructions: Stay connected with your healthcare team and access your personal medical information anytime with the [facility] Patient Portal. Please follow the directions below to create your [facility] account: 1.Access the email account you provided upon registration to the hospital/physician office.2.Look for an invitation email from [facility].3.Open the email and access the invitation link: AcceptInvitation to [facility].4.Fill in the required choudhury to create your account. To access your account, visit [email or web address]. Click the blue button labeled "Access Patient [...] who you will allowto register on the [facility] Patient Portal for access to your information. You can also access the [facility] on the [facility] kvng. Simply click on "Patient Portal" and then log into your account. If you would like to receive a full copy of your medical records, please contact the [facility] Medical Records Department by calling [phone], Monday through Monday between 8 a.m. and [...] Call your local pharmacy or go to http://Efficient Drivetrains.Tuxebo/4A3Pb2p to find one close to you.3.Make use of household items: Use cat litter or old coffee grounds to dispose medications if other options arenot available. Mix your drugs with these household products, seal them in an airtight container andthrow it into the garbage. Call [facility]: [phone] to be sure your drugs can be [...] aware that I should contact my doctor. Patient/Department Assistant Signature: Date/Time: Relationship to Patient: Witness Name/Signature: Date/Time: [id number] Discharge summary Date of Service 01/09/2025 Discharge [...] tobacco abuse, morbid obesity. Patient presented to [facility] as a transfer from [facility] on 01/02/2025 for management of her severe lumbar stenosis. She initially presented to [facility] on 01/01/2025 with low back pain radiating down her legs. She underwent an MRI of the lumbar spine that showed bilateral facet joint cystL3-L4 resulting in severe canal stenosis. She transferred to [facility] for neurosurgery evaluation. Neurosurgery evaluated the [...] discussed with Dr. Tijerina. Collaborative Care Team [facility] Medicine Shared/split visit with Mar MARTINEZ. Patient seen and examined independently. Care discussed and coordinated by the entire care team under my direction. Patient doing well here today. Plan is therapy over at [facility], for which she is medically optimized. DC to [facility] TCU. DC time 36 minutes justin tijerina md [facility] Medicine Allergies Vicodin Zanaflex ciprofloxacin codeine cyproheptadine [...] Patient Instructions He will be discharged to [facility] for continued physical and Occupational Therapy Return to the ER for any new or worsening symptoms Medications New Prescription acetaminophen-hydrocodone (Paul 325- 5 mg oral tablet)1 tab(s) by [...] Follow Up with LEEANN KING, Neurosurgery Where:[address] [facility] [address] [facility] [place] [address]- [phone] Business (1) Additional Information: Call for appointment Follow Up with ANNETTE SAMANO When:Only if needed Where:[address] [facility] [place] [address] [phone] Business (1) Follow Up with [facility] Bed [phone] Additional Information: Room 232 Follow Up with REUBEN LION JR, MD, Surgery When:01/23/2025 01:15 PM EDT Where:[address] [facility] [address] [facility] [place] [address]- [phone] Additional Information: For follow up of breast/chest [...] TIJERINA MD FACP on 01/09/2025 06:52 PM [id number] Note* Exam Date Time Procedure Performing Provider Status 01/09/25 10:18 AM IR Epidural Injection WILLIAM HOBBS MD ; Auth (Verified) [id number] ORIGINAL PROCEDURE: Lumbar Epidural Injection with Fluoroscopic Guidance CLINICAL STATEMENT: Low back pain HEAVY DUTY MECHANIC: Chapis Soto PA-C ANESTHESIA: Local NEEDLE: [...] 01/09/2025 6:22:05 PM Ordering Provider: JUAN ENRIQUE [facility]Xpjhlakp87-72-3266 Note IR Procedure Record Summary Primary Physician: CHAPIS SOTO PA-C Finalized Date/Time: 01/09/25 09:04:32 Pt. Name: MITCHELL BROOKS/Sex: 1975 Female Med Rec #: [id number] Physician: JAKE COPPOLA DO Financial #: [id number] Pt. Type: I Room/Bed: [facility]/A Admit/Disch: 01/02/25 23:07:00 - Institution: Allergies [...] Attendee CHAPIS SOTO Megan R Rad Allen Catshovel DriverGenie Conner PA-C Tech Role Performed Primary Surgeon [...] 1 mL Medication CONTRAST ISOVUE 300/30ML 10/CA 516822 Radiology Flouroscopy Fluoroscopy Used? Yes Fluoro Dose [...] Charlie SALAS Megan R Relevant images and Catshovel Driver, Noah, Rad results are properly Tech Tre Conner RN labeled and Matt appropriately displayed, Alcohol based prep dry, Double verification of sterility indicators complete Instrument Sterility Team Members CHAPIS SOTO Verifying Sterility AJCCharlie Megan R Catshovel Driver Procedure IR Epidural Injection (SN) Last Modified By: PRADEEP [place] 01/09/25 08:40:04 Skin Prep- IR Entry 1 Procedure IR Epidural Injection (SN) Skin Prep Prep Area Back Side Bilateral, Lower By Cheyenne Guerra Rad Prep Agents Betadine Manager Membership Hair Removal Method N/A Last Modified By: [...] Radiology - Action Plan Outcomes Met? Yes Ambulance Dispatcher PRADEEP [place] Completing Procedure Plan Last Modified By: PRADEEP [place] 01/09/25 08:38:54 Case Comments Finalized By: PRADEEP [place] Document Signatures Signed By: PRADEEP [place] 01/09/25 09:04 [id number] Note Date of Service 01/08/25 Chief Complaint back pain Subjective 49-year-old female with past medical history of hypertension, hyperlipidemia, fibromyalgia, paroxysmal atrial fibrillation on Plavix as she is unable to tolerate aspirin or anticoagulation secondary to gastric ulcer, COPD, neuropathy, bipolar disorder, tobacco abuse, morbid obesity. Patient presented to [facility] as a transfer from [facility] on 01/02/2025 for management of her severe lumbar stenosis. She initially presented to [facility] on 01/01/2025 with low back pain radiating down her legs. She underwent an MRI of the lumbar spine that showed bilateral facet joint cystL3-L4 resulting in severe canal stenosis. She transferred to [facility] for neurosurgery evaluation. Neurosurgery evaluated the [...] PT/OT recommending inpatient rehab, referral sent to [facility]. Patient seen today. She [...] PT/OT recommending inpatient rehab, pre-CERT pending for [facility] Level of Care Indication Regular Floor DVT Prophylaxis Enoxaparin SQ Maintenance IVF Indication NA / No maintenance IVF Indwelling Urinary Catheter Indication NA No indwelling catheter Anticipated Timeline of Discharge 24 hours Anticipated DC Disposition SNF Plan discussed with patient Case discussed with Dr. Coppola Digitally Signed by FAYE IRVING on 01/08/2025 12:41 PM [id number] Interventional radiology Progress note Due to IR schedule availability will reassess for injection 5-29-25. Floor made aware. Digitally Signed by Nabila More RN on 01/08/2025 03:46 PM [facility]Ogolrlrq68-74-1028 Interventional radiology Progress note Due to IR schedule availability will reassess for injection 5-29-25. Floor made aware. Digitally Signed by Nabila More RN on 01/08/2025 03:46 PM [facility]Efmxjcgb96-45-0429 Nurse Progress note this nurse reviewed and agrees with [facility] Student Nurse, Edilma Miller's charting and medication administration. Digitally Signed by Clarence Paniagua RN on 01/08/2025 03:01 PM [id number] Note Date of Service 01/08/25 Chief Complaint back pain Subjective 49-year-old female with past medical history of hypertension, hyperlipidemia, fibromyalgia, paroxysmal atrial fibrillation on Plavix as she is unable to tolerate aspirin or anticoagulation secondary to gastric ulcer, COPD, neuropathy, bipolar disorder, tobacco abuse, morbid obesity. Patient presented to [facility] as a transfer from [facility] on 01/02/2025 for management of her severe lumbar stenosis. She initially presented to [facility] on 01/01/2025 with low back pain radiating down her legs. She underwent an MRI of the lumbar spine that showed bilateral facet joint cystL3-L4 resulting in severe canal stenosis. She transferred to [facility] for neurosurgery evaluation. Neurosurgery evaluated the [...] PT/OT recommending inpatient rehab, referral sent to [facility]. Patient seen today. She [...] PT/OT recommending inpatient rehab, pre-CERT pending for [facility] Level of Care Indication Regular Floor DVT Prophylaxis Enoxaparin SQ Maintenance IVF Indication NA / No maintenance IVF Indwelling Urinary Catheter Indication NA No indwelling catheter Anticipated Timeline of Discharge 24 hours Anticipated DC Disposition SNF Plan discussed with patient Case discussed with Dr. Coppola Digitally Signed by FAYE IRVING on 01/08/2025 12:41 PM [id number] Nurse Progress note This nurse reviewed and agrees with [facility], Edilma Miller charting and medication administration. Digitally Signed by Clarence Paniagua RN on 01/08/2025 05:52 AM [id number] Interventional radiology Progress note Spoke with PRADEEP Castelan regarding order for Epidural. She was informed that IR is unable to do procedure today due to patient having lovenox yesterday. PRADEEP Castelan advised to get an order from ordering doctor to hold lovenox, and IR will plan procedure for tomorrow pending schedule availability. Digitally Signed by Sarah Huerta RN on 01/07/2025 02:09 PM [id number] Note Date of Service 01/07/25 Chief Complaint back pain Subjective 49-year-old female with past medical history of hypertension, hyperlipidemia, fibromyalgia, paroxysmal atrial fibrillation on Plavix as she is unable to tolerate aspirin or anticoagulation secondary to gastric ulcer, COPD, neuropathy, bipolar disorder, tobacco abuse, morbid obesity. Patient presented to [facility] as a transfer from [facility] on 01/02/2025 for management of her severe lumbar stenosis. She initially presented to [facility] on 01/01/2025 with low back pain radiating down her legs. She underwent an MRI of the lumbar spine that showed bilateral facet joint cystL3-L4 resulting in severe canal stenosis. She transferred to [facility] for neurosurgery evaluation. Neurosurgery evaluated the [...] PT/OT recommending inpatient rehab, referral sent to [facility]. Patient seen today. She [...] PT/OT recommending inpatient rehab, pre-CERT pending for [facility] Level of Care Indication Regular Floor DVT Prophylaxis Enoxaparin SQ Maintenance IVF Indication NA / No maintenance IVF Indwelling Urinary Catheter Indication NA No indwelling catheter Anticipated Timeline of Discharge 24 hours Anticipated DC Disposition SNF Plan discussed with patient Case discussed with Dr. Coppola Digitally Signed by FAYE IRVING on 01/07/2025 11:49 AM [id number] Note Date of Service 01/06/25 Chief Complaint Acute on chronic back pain Subjective 49-year-old female with past medical history of hypertension, hyperlipidemia, fibromyalgia, paroxysmal atrial fibrillation on Plavix as she is unable to tolerate aspirin or anticoagulation secondary to gastric ulcer, COPD, neuropathy, bipolar disorder, tobacco abuse, morbid obesity. Patient presented to [facility] as a transfer from [facility] on 01/02/2025 for management of her severe lumbar stenosis. She initially presented to [facility] on 01/01/2025 with low back pain radiating down her legs. She underwent an MRI of the lumbar spine that showed bilateral facet joint cystL3-L4 resulting in severe canal stenosis. She transferred to [facility] for neurosurgery evaluation. Neurosurgery evaluated the [...] PT/OT recommending inpatient rehab, referral sent to [facility]. Patient seen today. She [...] by FAYE IRVING on 01/06/2025 10:10 AM [id number] Note Date of Service 01/06/25 Chief Complaint Acute on chronic back pain Subjective 49-year-old female with past medical history of hypertension, hyperlipidemia, fibromyalgia, paroxysmal atrial fibrillation on Plavix as she is unable to tolerate aspirin or anticoagulation secondary to gastric ulcer, COPD, neuropathy, bipolar disorder, tobacco abuse, morbid obesity. Patient presented to [facility] as a transfer from [facility] on 01/02/2025 for management of her severe lumbar stenosis. She initially presented to [facility] on 01/01/2025 with low back pain radiating down her legs. She underwent an MRI of the lumbar spine that showed bilateral facet joint cystL3-L4 resulting in severe canal stenosis. She transferred to [facility] for neurosurgery evaluation. Neurosurgery evaluated the [...] PT/OT recommending inpatient rehab, referral sent to [facility]. Patient seen today. She [...] - ipratropium 2.5 mg-0.5 mg/3 mL Inhal Laruen UD 3 mL, Inhalation, q4hRT benztropine 0.5 [...] by FAYE IRVING on 01/06/2025 10:10 AM [facility]Obonnmee68-75-4591 Hematology Progress note Subjective Patient was feeling [...] -3230.00 Physical Exam In no apparent distress HEAD OF TRANSPORT LOGISTICS: She was awake and alert Skin: Ecchymosis [...] Patient denied any weakness No other bleeding 82614 Digitally Signed by JENNY LUZ MD on 01/06/2025 04:18 AM [facility]Bckzkeye77-62-1524 Hematology Progress note Subjective Blood seen under [...] -1640.00 Physical Exam In no apparent distress HEAD OF TRANSPORT LOGISTICS: She was awake and alert Respiratory: No [...] were answered. All the data was reviewed 86565 Digitally Signed by JENNY LUZ MD on 01/04/2025 11:45 PM [facility]Fwjsqopm97-98-8121 Hematology Consult note Date of Service 01/03/2025 Reason for Consultation Nontraumatic ecchymosis History of Present Illness This is a 49-year-old female with a past medical history significant for hypertension paroxysmal atrial fibrillation, hyperlipidemia, COPD, and neuropathy. She presented to [facility] for management of severe lumbar stenosis. Due to the acute on chronic back pain the patient was sent to [facility] for evaluation from an orthospine and neurosurgery [...] hyperlipidemia, COPD, and neuropathy. She presented to [facility] for management of severe lumbar stenosis. Due to the acute on chronic back pain the patient was sent to [facility] for evaluation from an orthospine and neurosurgery [...] by SHEILA BLANCAS on 01/03/2025 10:16 AM [facility]Jgromdet55-72-1137 Surgery Consult note Date of Service 01/03/2025 [...] anxiety, and fibromyalgia who presented to the [facility] emergency department on 01/01/2025 with complaints of low back pain with radiation of pain down her legs. She was evaluated in the [facility] emergency department on 12/25 and 12/28 due to ongoing pain and at that time she was diagnosed with a narrowing of the canal and foramina in the lower lumbar region. It was recommended that sheundergo an MRI for further evaluation. Due to progressively worsening symptoms that she presented to the [facility] emergency department on 01/01/2025. A CT scan [...] per the report. She was transferred to [facility] for evaluation by orthospine/the neuro spine service. She was transferred to [facility] and was admitted to the regular [...] 49-year-old female, on Plavix, who presented to [facility] on 01/02/2025 forfurther workup of severe canal stenosis seen on MRI while she was admitted to the [facility] and for evaluation from the [...] by DESMOND GARCES on 01/03/2025 11:36 AM [facility] HospitalGvfzopeo53-71-1846 Surgery Consult note Date of Service 01/03/2025 [...] anxiety, and fibromyalgia who presented to the [facility] emergency department on 01/01/2025 with complaints of low back pain with radiation of pain down her legs. She was evaluated in the [facility] emergency department on 12/25 and 12/28 due to ongoing pain and at that time she was diagnosed with a narrowing of the canal and foramina in the lower lumbar region. It was recommended that sheundergo an MRI for further evaluation. Due to progressively worsening symptoms that she presented to the [facility] emergency department on 01/01/2025. A CT scan of the thorax was obtained in the emergency department secondary to incidental findings of a large chest wall hematoma. She was noted to have a large deep right breast/chest wall hematoma with concern a large lobulated hypodense lesion in the region of the right deep breast per the report. She was admitted to [facility] for further evaluation. She underwent an MRI of the lumbar spine that showed bilateral facet joint cyst of L3-L4 resulting in severe canal stenosis per the report. She was transferred to [facility] for evaluation by orthospine/the neuro spine service. She was transferred to [facility] and was admitted to the regular [...] 49-year-old female, on Plavix, who presented to [facility] on 01/02/2025 forfurther workup of severe canal stenosis seen on MRI while she was admitted to the [facility] and for evaluation from the [...] by DESMOND GARCES on 01/03/2025 11:36 AM [id number] Neurological surgery Consult note Date of Service 01/03/2025 Reason for Consultation Back and leg pain with lumbar stenosis Referring Physician Dr. Coppola History of Present Illness This is a 49-year-old female, with past medical history of hypertension, hyperlipidemia, paroxysmalA-fib, COPD, morbid obesity, and neuropathy, who presented to [facility] for complaints of severe lumbar pain. She initially was seen in the emergency department on 01/01 for acute on chronic back pain. She was sent to [facility], for evaluation by neurosurgery after she [...] pulses palpable. No edema noted Neurological: Skin: [place], warm, and dry. Psychiatric: Mood stable. Cooperative. [...] significant recently. - MRI was completed at [facility] and demonstrated an L3-L4 synovial cyst resulting in severe stenosis. Patient was transferred to [facility] for evaluation by neurosurgery. - At [...] by JUAN ENRIQUE on 01/03/2025 09:59 AM [facility]Etxgnpyj36-25-3720 Neurological surgery Consult note Date of Service 01/03/2025 Reason for Consultation Back and leg pain with lumbar stenosis Referring Physician Dr. Coppola History of Present Illness This is a 49-year-old female, with past medical history of hypertension, hyperlipidemia, paroxysmalA-fib, COPD, morbid obesity, and neuropathy, who presented to [facility] for complaints of severe lumbar pain. She initially was seen in the emergency department on 01/01 for acute on chronic back pain. She was sent to [facility], for evaluation by neurosurgery after she [...] pulses palpable. No edema noted Neurological: Skin: [place], warm, and dry. Psychiatric: Mood stable. Cooperative. [...] significant recently. - MRI was completed at [facility] and demonstrated an L3-L4 synovial cyst resulting in severe stenosis. Patient was transferred to [facility] for evaluation by neurosurgery. - At [...] by JUAN ENRIQUE on 01/03/2025 09:59 AM [facility] HospitalDnnzljdp28-12-8719 Neurological surgery Consult note Date of Service 01/03/2025 Reason for Consultation Back and leg pain with lumbar stenosis Referring Physician Dr. Coppola History of Present Illness This is a 49-year-old female, with past medical history of hypertension, hyperlipidemia, paroxysmalA-fib, COPD, morbid obesity, and neuropathy, who presented to [facility] for complaints of severe lumbar pain. She initially was seen in the emergency department on 01/01 for acute on chronic back pain. She was sent to [facility], for evaluation by neurosurgery after she [...] pulses palpable. No edema noted Neurological: Skin: [place], warm, and dry. Psychiatric: Mood stable. Cooperative. [...] significant recently. - MRI was completed at [facility] and demonstrated an L3-L4 synovial cyst resulting in severe stenosis. Patient was transferred to [facility] for evaluation by neurosurgery. - At [...] by JUAN ENRIQUE on 01/03/2025 09:59 AM [facility] HospitalNrjszqza19-20-4134 Note Reason for Consultation Admission From: Other: [facility], from home Consult Skin Team re: [...] Erythema Gluteal cleft - Skin Abnormality Color: [place], Red Gluteal cleft - Skin Abnormality Type: [...] RN, Skin Team on 01/03/2025 09:06 AM [facility]Eepjewms72-28-4320 Hematology Consult note Date of Service 01/03/2025 Reason for Consultation Nontraumatic ecchymosis History of Present Illness This is a 49-year-old female with a past medical history significant for hypertension paroxysmal atrial fibrillation, hyperlipidemia, COPD, and neuropathy. She presented to [facility] for management of severe lumbar stenosis. Due to the acute on chronic back pain the patient was sent to [facility] for evaluation from an orthospine and neurosurgery [...] hyperlipidemia, COPD, and neuropathy. She presented to [facility] for management of severe lumbar stenosis. Due to the acute on chronic back pain the patient was sent to [facility] for evaluation from an orthospine and neurosurgery [...] 11:43 EDT Digitally Signed by SHEILA BLANCAS APRN-SHELL ASSEMBLER on 01/03/2025 10:16 AM [facility] HospitalRhhdppqg62-69-5619 History and physical note Date of Service January 02, 2025 Chief Complaint Back pain History of Present Illness This is a 49-year-old female with a past medical history significant for hypertension, hyperlipidemia, paroxysmal atrial fibrillation, morbid obesity, COPD, and neuropathy [facility] [...] HELLEN HULL DO on 01/03/2025 01:55 AM [facility] HospitalWriudowc22-74-2212 Evaluation + Plan noteExtracted from: Title:History and [...] LION JR, MD Location:Gen Surg [facility] Appointment Type:[facility] Hospital Follow Up Future Scheduled Tests Laboratory* Thyroid Stimulating Hormone 06/23/24 * Complete Blood Count 06/23/24 * Lipid Profile 06/23/24 * Complete Metabolic Panel 06/23/24 [facility] 09-11-2024 Primary care Note Chief Complaint [...] Use, 04/25/2017 Use: Never., 02/21/2019 Home/Environment Primary Fitness And Wellness Director: self., 03/28/2024 Nutrition/Health Caffeine intake amount: Coffee, [...] 12 hours Duration: 10 Days Pickup at [facility] New guaiFENesin (Mucinex 600 mg oral tablet, extended release) 1 tab(s) by mouth Every 12 hours Duration: 10 Days Pickup at [facility] Changed bacillus coagulans-calcium carbonate (Digestive Advantage Daily Probiotics oral capsule) 1 cap by mouth Once a day Duration: 30 Days Pickup at [facility] Unchanged albuterol (albuterol 5 mg/ [...] prescriber if questions or concerns Pharmacy Information [facility]: [id number], [place] [id number] [phone] Digitally Signed by SCARLETT ROSENBERG on 04/24/2024 08:51 PM [facility]08-12-2024 Telephone encounter Note* Telephone Encounter - Madyson Ramos - 03/25/2024 7:07 AM EDT Name of caller: Mitchell Brooks Contact phone number: [phone] Relationship to Patient: patient Provider: [facility] Practice: Gastroenterology Chief Complaint/Reason for Call: [...] business hours to return their call: Yes [facility]8 Miscellaneous Notes* Telephone Encounter - Madyson Ramos - 03/25/2024 7:07 AM EDT Name of caller: Mitchelllance Brooks Contact phone number: [phone] Relationship to Patient: patient Provider: Joyce Forester [...] return their call: Yes documented in this [facility]06-15-2023 Miscellaneous Notes* Telephone Encounter - Criss Landers - 01/26/2023 3:14 PM EDT This patient was seen by Myke Ross in the ED around . Patient lives out in [place] wanting a [facility]# [phone] Please call her if there is any other questions Thanks! [facility] NoteHNO ID: [id number] Author: Melodie Smith APRN.SHELL ASSEMBLER Service: Cardiovascular Medicine Author Type: Nurse Practitioner Type: Plan of Care Filed: 01/14/2023 10:23 AM Note Text: [facility] BRIEF PLAN OF CARE CONSULTING SERVICE: Cardiology: Consult Team PRIMARY SERVICE: Internal Medicine HOSPITAL DAY: #4 REASON FOR CONSULT: Atrial fibrillation SUBJECTIVE HPI: Ms. Brooks is a 47 year old female from [place], [place] with h/o morbid obesity, necrotizing fascitis [...] as needed. Heart rate leniently controlled. - [id number] VASc score is 2. Recommend to start [...] -She wishes to establish care with a route delivery driver in the [place] area>>recommend follow up in 3-4 weeks -No [...] 14, 2023 TIME: 10:18 AM PAGER/CONTACT #: [phone] For communication after 5 pm on weekdays and on weekends, please page the (more content not included)...[facility] CenterIklkgnnv28-66-5849 NoteHNO ID: [id number] Author: Cindy Hameed RN Service: Care Management [...] accepting home care agencies. Call placed to [facility] to inquire about who her counter caser is. Patient does not have a counter caser. Patient completing assessment over phone with Crystal from [facility] to get her qualified for counter casermanager bridge. SIGNATURE: Cindy Hameed RN PATIENT NAME: Mitchell Brooks DATE: January 13, 2023 TIME: 3:05 PM PAGER/CONTACT #: [phone] [id number] NoteHNO ID: [id number] Author: Chrissy Novoa MD Service: Hospital Medicine Author Type: Physician Type: Progress Notes Filed: 01/13/2023 1:21 PM Note Text: DEPARTMENT OF HOSPITAL MEDICINE PROGRESS NOTE SERVICE DATE: 01/13/2023 SERVICE TIME: 1:15 PM Hospital Medicine/Primary Attending: Chrissy Novoa MD NIGHT AND WEEKEND COVERAGE: HOQUIAM COVERAGE: : [phone], please contact via [employer] Nights: [phone] - 3rd floor: please page CC Hospitalist night cover [phone] - 4th floor: please page CC Hospitalist night cover [phone] - 5th floor: please page CC Hospitalist night cover [phone] Subjective INTERVAL HPI: Patient seen and examined. [...] asthma, copd, lymphedema, hypothyroidism, who presented to [place] ED Monday with chills and weakness, then admitted here for continued care. Principal Problem: Sepsis (HCC) Cellulitis of left lower extremity Assessment AND Plan: symptom onset Monday afternoon, chills, rigors, fever. WBC 28. Initial lactate 2.3, improved to 1.4 after fluids. CXR nothing acute. Started on Zosyn at [place] ED. No definite (more content not included)...[facility] CenterOedypcgb19-68-7203 NoteHNO ID: [id number] Author: Myke Ross MD Service: Infectious Disease [...] 0659 01/12/23 0700 - 01/13/23 0659 Shift 4484-1748 8077-7984 24 Hour Total 4963-5757 4781-6880 3403-2656 24 Hour Total INTAKE PO 540 1140 872 256 9019 PO 540 1140 557 768 2754 Shift Total 540 1140 516 861 1704 OUTPUT Urine 400 400 800 300 100 [...] Myke Ross MD, PhD Staff, Infectious Disease [facility] Office [phone] Please call anytime with questions or concerns. Case findings/test results and suggestions disc (more content not included)... [facility] CenterMwucnxbe71-14-1269 NoteHNO ID: [id number] Author: Chrissy Novoa MD Service: Hospital Medicine Author Type: Physician Type: Progress Notes Filed: 01/12/2023 12:24 PM Note Text: DEPARTMENT OF HOSPITAL MEDICINE PROGRESS NOTE SERVICE DATE: 01/12/2023 SERVICE TIME: 12:19 PM Hospital Medicine/Primary Attending: Chrissy Novoa MD NIGHT AND WEEKEND COVERAGE: HOQUIAM COVERAGE: Days: [phone], please contact via [employer] Nights: - 3rd floor: please page CC Hospitalist night cover [phone] - 4th floor: please page CC Hospitalist night cover [phone] - 5th floor: please page CC Hospitalist night cover [phone] Subjective INTERVAL HPI: Patient seen and examined. [...] asthma, copd, lymphedema, hypothyroidism, who presented to [place] ED Monday with chills and weakness, then admitted here for continued care. Principal Problem: Sepsis (HCC) Cellulitis of left lower extremity Assessment AND Plan: symptom onset Monday afternoon, chills, rigors, fever. WBC 28. Initial lactate 2.3, improved to 1.4 after fluids. CXR nothing acute. Started on Zosyn at [place] ED. No definite source other than the possible cellulitis LLE. Vancomycin added on 01/10/2023. - Sepsis carepath - No more fever overnight, Tmax last 24 hours 37.2 ?C - Leukocytosis improved from 29.12 to 13.19 to 8.6 - ID switched antibiotics to (more content not included)...[facility] 01-12-2023 NoteHNO ID: [id number] Author: Mitchell Alfredo RN Service: Care Management Author Type: Registered Nurse Type: Care Mgt Progress Note Filed: 01/12/2023 1:30 PM Note Text: CARE MANAGEMENT PROGRESS NOTE SERVICE DATE: 01/12/2023 SERVICE TIME: 11:46 AM LOS: 2 days [place] Given: Yes Level of Care [...] Discussed the barrier of her [place] plan[facility] [place]. Will send referrals and attempt to arrange this service. If unable, patient may be interested in attending outpatient PT. She has done this in the past. 1329: Unable to secure Home PT for patient d/t insurance coverage. SIGNATURE: Mitchell Alfredo RN PATIENT NAME: Mitchell Brooks DATE: January 12, 2023 TIME: 11:46 AM PAGER/CONTACT #: [phone] [id number] NoteHNO ID: [id number] Author: Chrissy Novoa MD Service: Hospital Medicine Author Type: Physician Type: Progress Notes Filed: 01/11/2023 10:34 AM Note Text: DEPARTMENT OF HOSPITAL MEDICINE PROGRESS NOTE SERVICE DATE: 01/11/2023 SERVICE TIME: 10:28 AM Hospital Medicine/Primary Attending: Chrissy Novoa MD NIGHT AND WEEKEND COVERAGE: MAGNOLIA COVERAGE: Days: [phone], please contact via [employer] Nights: [phone] - 3rd floor: please page CC Hospitalist night cover [phone] - 4th floor: please page CC Hospitalist night cover [phone] - 5th floor: please page CC Hospitalist night cover [phone] Subjective INTERVAL HPI: Patient seen and examined. [...] asthma, copd, lymphedema, hypothyroidism, who presented to [place] ED Monday with chills and weakness, then admitted here for continued care. Principal Problem: Sepsis (HCC) Cellulitis of left lower extremity Assessment AND Plan: symptom onset Monday afternoon, chills, rigors, fever. WBC 28. Initial lactate 2.3, improved to 1.4 after fluids. CXR nothing acute. Started on Zosyn at [place] ED. No definite source other than the possible cellulitis LLE. Vancomycin added on 01/10/2023. - Sepsis carepath - No more fever overnight, Tmax last 24 hours 37.7 ?C -Leukocytosis improved from 29.12 to 13.19 - continue zosyn a (more content not included)...[facility] CenterWdxlnwwi80-78-2676 NoteHNO ID: [id number] Author: Myke Ross MD Service: Infectious Disease [...] 0659 01/11/23 0700 - 01/12/23 0659 Shift 8199-3456 8887-4956 0050-9457 24 Hour Total 8580-0009 0310-1005 0857-5522 24 Hour Total INTAKE PO 250 120 370 PO 250 120 370 IV 550 1095 1026 2671 Volume (mL) (piperacillin-tazobactam iv piggyback 3.375 g in dextrose (iso-osmotic) 50 mL (ZOSYN)) 100 100 50 250 Volume (mL) (vancomycin 1.5 g in NaCl 0.9% 250 mL (VANCOCIN)) 250 250 500 Volume (mL) (NaCl 0.9% iv infusion) 200 439 976 8152 Shift Total 800 1215 1026 3041 OUTPUT Urine 2023 221 5462 Urine Incontinence/Not Saved 1 x 1 x 2 x Output ( External Collection Device 01/10/23 0243) 8578 739 6296 # of BMs Stool Incontinence 1 x 1 x Number of BMs 2 x 2 x Shift Total 3299 421 8511 Weight (kg) 159.9 159.9 159.9 159.9 159.9 [...] Myke Ross MD, PhD Staff, Infectious Disease [place] (more content not included)...[facility] CenterCogjzqde62-42-8045 NoteHNO ID: [id number] Author: RT Patti(R) Service: Radiology Author Type: [...] BY: RT Patti(R) January 10, 2023 11:[address] [facility] HospitalVyghtzhw21-65-7221 NoteHNO ID: [id number] Author: Chrissy Novoa MD Service: Hospital Medicine [...] Brooks DATE: January 10, 2023 TIME: 11:[address] [facility] HospitalBeyhllsq40-07-4133 NoteHNO ID: [id number] Author: Cindy Hameed RN Service: Care Management Author Type: Registered Nurse Type: Care Mgt Initial Assessment Filed: 01/10/2023 10:31 AM Note Text: CARE MANAGEMENT: ASSESSMENT AND DISCHARGE PLAN SERVICE DATE: January 10, 2023 SERVICE TIME: 10:29 AM PCP: No primary care provider on file. Primary Contact: Extended Emergency Contact Information Primary Emergency Contact: Kalani Zhang Address: [address] [place] [id number] [place] [address] Relation: Daughter Secondary Emergency Contact: Rahul Ly Address: [address] [place] [id number] [place] [address] Mobile Relation: Ex Spouse Admission Status: Inpatient Insurance Provider: [facility]ICA[facility] Discharge Planning requested by: Per Department Practice Potential Transition Plans Home Advance Directives Current Advance Directive: Health Care Power of Pigskin Trimmer In Chart: Yes Up To Date and Valid: No Disulfurizer Tender Attempted to Assist with AD Completion: Yes [...] Patient Goal(s): Be able to go home [place] Explained: [place] Given: No Reason Not Given: [...] 10, 2023 TIME: 10:29 AM CONTACT #: [id number] [id number] Miscellaneous Notes* Telephone Encounter - Aman Pena LPN - 07/25/2022 9:08 AM EST Pt has appt to Establish Care with Dr. Deepti Ruiz on 08/01/22. Dr. Lim has not been listed as this pt's PCP since 2012 and has not been seen by anyone in this practice since 2015. Aman Pena LPN documented in this encounterWhite [facility]22 History of Present illness Narrative* Geraldine Suggs MA - 06/24/2022 12:37 PM EST ED Follow Up: Patient discharged from [facility] ED on 06/22/2022. 1. How are [...] you able to contact the office or convenience store manager provider prior to your ED visit? Not applicable 5. Is there anything else I can do for you today? No Patient was transferred to call center to schedule apt. Geraldine Suggs MA ict help desk officer rang busy documented in this encounterWhite Hospital12-07-[facility] History of Past illness Narrative* Problem [...] of this encounter (statuses as of 01/27/2023) [facility] of [facility] Narrative* Problem Noted Date Resolved Date Myofascial pain 05/10/2013 07/20/2013 documented as of this encounter (statuses as of 06/24/2022) [facility] Narrative* Problem Noted Date Resolved Date Myofascial pain 05/10/2013 07/20/2013 documented as of this encounter (statuses as of 07/25/2022) [facility] Narrative* Problem Noted Date Resolved Date Myofascial pain 05/10/2013 07/20/2013 documented as of this encounter (statuses as of 07/25/2022) [facility] Future Scheduled Tests Laboratory* Thyroid Stimulating Hormone 06/23/24 * Complete Blood Count 06/23/24 * Lipid Profile 06/23/24 * Complete Metabolic Panel 06/23/24 [facility] aluation + Plan note Future Appointments Appointment Date:02/17/2025 02:30:00 PM Scheduled Provider:LEEANN KING MD Location:[facility] Appointment Type:NS OV Appointment Date:04/03/2025 02:00:00 PM Scheduled Provider:REUBEN LION JR, MD Location:[facility] Appointment Type:GS OV Check Up Future Scheduled Tests Laboratory* Thyroid Stimulating Hormone 06/23/24 * Complete Blood Count 06/23/24 * Lipid Profile 06/23/24 * Complete Metabolic Panel 06/23/24 [facility] Evaluation + Plan note Future Appointments Appointment Date:02/17/2025 02:30:00 PM Scheduled Provider:LEEANN KING MD Location:[facility] Appointment Type:NS OV Appointment Date:02/18/2025 02:00:00 PM Scheduled Provider:ANNETTE SAMANO Location:[facility] Appointment Type:PC OV Appointment Date:03/03/2025 12:45:00 PM Scheduled Provider:LILLIAM TURNER APRN-SHELL ASSEMBLER Location:[facility] Appointment Type:PM OV Appointment Date:04/03/2025 02:00:00 PM Scheduled Provider:REUBEN LION JR, MD Location:[facility] Appointment Type:GS OV Check Up Future Scheduled Tests Laboratory* Thyroid Stimulating Hormone 06/23/24 * Complete Blood Count 06/23/24 * Lipid Profile 06/23/24 * Complete Metabolic Panel 06/23/24 [facility] ation note* Diagnosis Onset Date Resolution Status Irritable bowel syndrome with diarrhea [facility] Work Phone: Evaluation note* Diagnosis Acquired hypothyroidism Unspecified hypothyroidism documented in this encounter [facility]* Diagnosis Onset Date Resolution Status GERD (gastroesophageal reflux disease) chronic Irritable bowel syndrome with diarrhea [facility] Work Phone: Evaluation noteNo assessment information available [facility] Work Phone: Hospital course Narrative No data available for this section [facility] Discharge instructions No data available for this section [facility] Progress note No data available for this section [facility] Reason for referral (narrative)No reason for referral information [facility]WH[facility] Work Phone: Summary Purpose Family History No Family History Records Found Relationship Condition Age at Onset Recorded Date/T carlos Unknown Family History?Diabetes Unknown Apr 2:43pm Family History?Diabetes [facility] 12:06am Family History?No pe rtinent history [...] No May 06, 2021 12:19pm Power of Pigskin Trimmer No April 12:19pm Documents on File Type Date Recorded Patient Department Assistant Expl anation Advance Directive(s) 07/18/2016 10:03 AM [...] section and content) DATE CREATED AUTHOR 07/27/2018 [facility] DATE CREATED AUTHOR AUTHOR'S ORGANIZ ATION 05/03/2019 [facility] DATE CREATED AUTHOR AUTHOR'S ORGANIZ ATION 08/19/2020 [facility] DATE CREATED AUTHOR AUTHOR'S ORGANIZ ATION 01/24/2023 [facility] DATE CREATED AUTHOR AUTHOR'S ORGANIZ ATION 01/27/2023 [facility] DATE CREATED AUTHOR AUTHOR'S ORGANIZ ATION 02/14/2023 [facility] DATE CREATED AUTHOR AUTHOR'S ORGANIZ ATION 02/16/2023 [facility] DATE CREATED AUTHOR AUTHOR'S ORGANIZ ATION 2024 [facility] DATE CREATED AUTHOR AUTHOR'S ORGANIZ ATION 12/30/2024 [facility] DATE CREATED AUTHOR AUTHOR'S ORGANIZ ATION 02/02/2025 [facility] DATE CREATED AUTHOR AUTHOR'S ORGANIZ ATION 02/04/[address] [facility] DATE CREATED AUTHOR AUTHOR'S ORGANIZ ATION 03/19/2025 [facility] Goals (unrecognized section and content) Goals [...] or prosecute any alcohol or drug abuse patient.White HospitalIn the event this information is protected by the Federal Confidentiality of Alcohol and Drug Abuse Patient Records regulations: The Federal rules restrict any use of the information to criminally investigate or prosecute any alcohol or drug abuse patient.White HospitalIn the event this information is protected by the Federal Confidentiality of Alcohol and Drug Abuse Patient Records regulations: The Federal rules restrict any use of the information to criminally investigate or prosecute any alcohol or drug abuse patient.White HospitalIn the event this information is protected by the Federal Confidentiality of Alcohol and Drug Abuse Patient Records regulations: The Federal rules restrict any use of the information to criminally investigate or prosecute any alcohol or drug abuse patient.White HospitalIn the event this information is protected by the Federal Confidentiality of Alcohol and Drug Abuse Patient Records regulations: The Federal rules restrict any use of the information to criminally investigate or prosecute any alcohol or drug abuse patient.[facility] Reason for Visit (unrecogniz ed section [...] Provider, Referrin g Provider Active Cat Dent VISUAL DISPLAY ASSOCIATE, VISUAL DISPLAY ASSOCIATE-C Attending Provider Active Team Status: Inactive Member Role Status Dates Dr. Nabila Watson MD Primary Care Prov ider, Attending Provider, Referring Provider Active Ambulance Dispatcher Relationship Specialty Start Date End Date Nabila Watson MD [address] [place] [address] PCP - General Family Medicine 01/11/23 Ambulance Dispatcher Relationship Specialty Start Date End Date Geovanny Nesbitt DO [address] [place] [address] PCP - General 09/04/18 Team Status: Active Member Role Status Dates Dr. Geovanny Nesbitt DO Family Provider Active Annette Samano VISUAL DISPLAY ASSOCIATE, VISUAL DISPLAY ASSOCIATE-C Primary Care Provider Active Team Status: Inactive Member Role Status Dates Annette Samano VISUAL DISPLAY ASSOCIATE, VISUAL DISPLAY ASSOCIATE-C Primary Care Provider Active Start: January 29, 2025 End: January 29, 2025 Annette Samano VISUAL DISPLAY ASSOCIATE, VISUAL DISPLAY ASSOCIATE-C Attending Provider Active Start: January 29, 2025 End: January 29, 2025 Team Status: Active Member Role/Relationship Status Dates Annette Samano VISUAL DISPLAY ASSOCIATE, VISUAL DISPLAY ASSOCIATE-C Primary Care Provider Active Team Status: Inactive Member Role/Relationship Status Dates Annette Samano VISUAL DISPLAY ASSOCIATE, VISUAL DISPLAY ASSOCIATE-C Primary Care Provider Active Start: January 29, 2025 End: January 29, 2025 Annette Samano VISUAL DISPLAY ASSOCIATE, VISUAL DISPLAY ASSOCIATE-C Attending Provider Active Start: January 29, 2025 [...] BE BASED ON THE PRIMARY CLINICAL RECORDS. [facility], [facility]. provides no warranty or guarantee of the accuracy or completeness of information in this document.
--- NOTE | 2025-06-01 20:53 | ED.RN ---
This rn bedside after hearing patient yell "help, help". Patient states "I lost my call light and I need help getting some tobacco so I can roll a cigarette".
--- NOTE | 2025-06-01 21:12 | ECHOD_ITS ---
Reason For Study Reason For Study: CHF Procedure This was a 2D Doppler, Color Flow transthoracic echocardiogram. The study was technically difficult. Definity deferred due to no apical window. Exam performed portable in ICU/CCU. Left Ventricle Normal LV size. The left ventricular ejection fraction is 55 %. No regional wall motion abnormalities noted. Right Ventricle Normal RV size. Normal systolic function. Atria Normal left atrium. Normal right atrium. Mitral Valve Normal mitral valve. Tricuspid Valve Normal tricuspid valve. Mild (1+) tricuspid valve insufficiency. Pulmonary artery systolic pressure is 36 mmHg. Aortic Valve The aortic valve is not well visualized. Pulmonic Valve The pulmonic valve is not well visualized. Great Vessels Normal aortic root. Pericardium/Pleural No pericardial effusion. MMode/2D Measurements & Calculations Ao root diam: 3.4 cm LA dimension(2D): 3.7 cm Doppler Measurements & Calculations Lat Peak E' Jag: 8.5 cm/sec Med Peak E' Jag: 8.5 cm/sec Ao V2 max: 120.8 cm/sec Ao max P.8 mmHg Ao V2 mean: 82.9 cm/sec Ao mean P.2 mmHg Ao V2 VTI: 22.0 cm AV (velocity ratio): 0.63 LV V1 max: 85.4 cm/sec TR max jag: 282.7 cm/sec LV V1 max P.9 mmHg TR max P.0 mmHg LV V1 mean P.2 mmHg LV V1 mean: 49.4 cm/sec LV V1 VTI: 13.8 cm ECHO/Echo Complete Interpretation Summary Normal LV size. The left ventricular ejection fraction is 55 %. The study was technically limited. The study was technically difficult. Ordering Physician: Maryuri Coyle Referring Physician: MERLYN AMAYA Performed By: Maryana Hagen RCS
[2025-06-01 22:03] LABS: Reflex Lactate? Y
[2025-06-01] MEDS: 0.9% Saline Lock 10 ML Syringe IV ×2 (22:18→23:59)
[2025-06-01] MEDS: Cefepime HCl 1 GM in 0.9% Normal Saline (50mL MB+) 50 ML IV (22:18)
[2025-06-01] MEDS: Heparin Injection (Vial) 5,000 UNIT/ML VIAL 5000 UNIT SC (22:19)
[2025-06-01] MEDS: 0.9% Normal Saline (250mL Bag) 250 ML 15 ML IV (22:19)
--- NOTE | 2025-06-01 23:24 | EKG12_ITS ---
Test Reason : tachycardia Blood Pressure : */* mmHG Vent. Rate : 135 BPM Atrial Rate : 135 BPM P-R Int : 118 ms QRS Dur : 76 ms QT Int : 298 ms P-R-T Axes : 87 36 -3 degrees QTcB Int : 447 ms Sinus tachycardia Low voltage QRS Cannot rule out Inferior infarct , age undetermined Abnormal ECG When compared with ECG of 01-Jun-2025 23:32, MANUAL COMPARISON REQUIRED DATA IS UNCONFIRMED Confirmed by RENEE BULLARD, JOHN ([id number]), loan expeditor FADIA SHORT ([id number]) on 06/02/2025 10:06:50 AM Referred By: Leonides Confirmed By: JOHN DURAN MD
--- NOTE | 2025-06-01 23:32 | EKG12_ITS ---
Test Reason : tachycardia Blood Pressure : */* mmHG Vent. Rate : 135 BPM Atrial Rate : 135 BPM P-R Int : 136 ms QRS Dur : 72 ms QT Int : 298 ms P-R-T Axes : 87 34 6 degrees QTcB Int : 447 ms Sinus tachycardia Low voltage QRS Borderline ECG When compared with ECG of 01-Jun-2025 13:54, MANUAL COMPARISON REQUIRED DATA IS UNCONFIRMED Confirmed by RENEE BULALRD, JOHN ([id number]), medical editor SHEILA BRUNER ([id number]) on 06/02/2025 11:41:07 AM Referred By: Leonides Confirmed By: JOHN DURAN MD
[2025-06-01] MEDS: 0.9% Normal Saline (500mL Bag) 500 ML 999 ML IV (23:58)
[2025-06-02] VITALS (31 sets, daily range): BP systolic 88–124; BP diastolic 45–92; PULSE 95–154; RESP 13–24; TEMP 36.5–37.2; O2SAT 94–99; BMI 64.5
--- NOTE | 2025-06-02 03:20 | CON.PCM.CC_ITS ---
HPI Consult Data Date of Consult: 06/02/25 HPI Narrative HPI Narrative: A 50-year-old female with anemia, anxiety, arthritis/chronic back pain, COPD, GERD, active tobacco use, migraine, morbid obesity with suspected OHS/MALIKA, rheumatoid arthritis, documented pulmonary hypertension, and possible paroxysmal atrial fibrillation (per family) presented yesterday with progressive shortness of breath and lower-extremity numbness/tingling. In the ED she was hypoxemic with room-air SpO2 in the 80s and intermittently hypotensive (SBP ~90s/60s), triggered sepsis protocol, and received 2 L of crystalloid. Initial studies showed WBC 17 K/µL and Hgb ~11 g/dL; basic chemistry revealed HCO3 ~22.8 mmol/L and creatinine 1.85 mg/dL; lactate was 3.8 mmol/L rising to 4.3 mmol/L; pro-BNP was markedly elevated at 6,489 pg/mL; urinalysis had nitrites, leukocyte esterase, and 4+ bacteria consistent with UTI (prior 01/29 culture grew Proteus mirabilis). CTA chest showed no PE, and CT abdomen/pelvis revealed no acute process with a 5 mm non-obstructing left nephrolithiasis. After transfer upstairs she remained sinus tachycardic around 128 bpm with blood pressure improving to the 110s/60–70s, required 6 L/min nasal cannula oxygen. [facility] Medical History RAFIA (acute kidney injury) Anemia Anxiety Arthritis Asthma Back pain Bilateral primary osteoarthritis of knee Bipolar depression Chronic bronchitis Chronic headaches Chronic ulcer of right thigh with fat layer exposed COPD (chronic obstructive pulmonary disease) Decreased hearing Dyslipidemia Dysphagia Essential (primary) hypertension Excessive bleeding Gastric reflux Gastritis GERD (gastroesophageal reflux disease) History of atrial fibrillation History of edema History of headache History of pain when walking History of tobacco use History of ulceration Hypothyroidism Injury of head and neck Irritable bowel syndrome Irritable bowel syndrome with diarrhea Migraine headache Morbid obesity Neuropathy Nicotine dependence Obesity Osteoarthritis Osteochondroma of femur Pulmonary hypertension Rheumatoid arthritis Seasonal allergies Thyroid disease TIA (transient ischemic attack) Home Medications Medication Instructions Recorded Last Taken Type levothyroxine 50 mcg tablet 50 mcg PO DAILY 05/02/15 0 05/11/21 History (Unithroid) albuterol sulfate 90 mcg/actuation 2 puff inhalation Q 4H PRN PRN 05/06/21 Unknown History aerosol inhaler ASTHMA bismuth subsalicylate 262 mg 2 tab PO Q30M PRN Diarrhe a 05/06/21 Unknown History chewable tablet (Pepto-Bismol) diclofenac sodium 50 mg 50 mg PO BID 05/06/21 Unknow n History tablet,delayed release fluticasone propionate 110 2 inh inhalation BID Unknown History mcg/actuation HFA aerosol inhaler (Flovent HFA) glucosamine 750 rh-tzyzss-agn 2-C 1 tab PO DAILY 05/06 Unknown History 30 mg-D3 1,000 unit-kathrin 1 mg tablet ([id number] + vitD) montelukast 10 mg tablet 10 mg PO DAILY 05/06/21 Unkn own History multivitamin 1 tab PO DAILY 05/06/21 Unkn own History pantoprazole 40 mg tablet,delayed 40 mg PO BID 1 Unknown History release trolamine salicylate 10 % topical 1 applic topical BID PRN Skin 05/06/21 Unknown History cream Cleansing albuterol sulfate 2.5 mg/3 mL 2.5 mg inhalation Q4H W[place] N 04/26/23 Unknown History (0.083 %) solution for nebulization benztropine 0.5 mg tablet 0.5 mg PO BID 04/26/23 Unkno wn History brexpiprazole 0.25 mg tablet 0.25 mg PO DAILY 04/26/23 Unknown History (Rexulti) cetirizine 10 mg capsule (All Day 10 mg PO DAILY PRN 0 04/26/23 Unknown History Allergy (cetirizine)) hydroxyzine HCl 25 mg tablet 25 mg PO 4X/DAY PRN 04/26 Unknown History methocarbamol 500 mg tablet 500 mg PO Q6H PRN 04/26/23 Unknown History oxybutynin chloride 5 mg 5 mg PO DAILY 04/26/23 Unkno wn History tablet,extended release 24 hr (Ditropan XL) quetiapine 50 mg tablet 50 mg PO QHS 04/26/23 Unknow n History gabapentin 600 mg tablet 600 mg PO Q6H 05/12/23 Unkno wn History colestipol 1 gram tablet 1 g PO BID #180 tabs 3 Unknown Rx dicyclomine 10 mg capsule 10 mg PO TID PRN abdominal p ain 09/04/23 Unknown Rx #14 caps famotidine 40 mg tablet 40 mg PO DAILY #30 tabs 08/15 05/07 Unknown Rx cetirizine 10 mg tablet 10 mg PO QDAY 05/16/24 Unkno wn History clopidogrel 75 mg tablet 75 mg PO DAILY #90 TABLETS 0 03/14/25 Unknown Rx metoprolol tartrate 25 mg tablet 25 mg PO BID #180 tab s 05/09/25 Unknown Rx Allergy/AdvReac Type Severity Reaction Status Date / Time naproxen (From Aleve) Allergy Intermediate Itching Verified 06/01/25 12:40 tizanidine (From Zanaflex) Allergy Intermediate Rash Verified 06/01/25 12:40 ciprofloxacin HCl (From Allergy Shortness Verified 06/01/25 12:40 Cipro) of breath codeine Allergy Shortness Verified 06/01/25 12:40 of breath hydrocodone Allergy Shortness Verified 06/01/25 12:40 of breath ibuprofen (From Advil) Allergy Rash Verified 06/01/25 12:40 morphine Allergy Angioedema Verified 06/01/25 12:40 tizanidine HCl (From Allergy Rash Verified 06/01/25 12:40 Zanaflex) acetaminophen (From Vicodin) AdvReac Severe Anaphylaxis Verified 06/01/25 12:40 celecoxib (From Celebrex) AdvReac Intermediate Swelling Verified 06/01/25 12:40 cyproheptadine AdvReac Intermediate Hives Verified 06/01/25 12:40 Penicillins AdvReac Itching Verified 06/01/25 12:40 Family History Father Diabetes Grandmother Heart disease Grandfather Heart disease Mother Cancer Liver Surgical History Hx of cervical spine surgery Hx of section Hx of surgical procedure Hx of tracheostomy Hx of tubal ligation Social History Smoking Status: Current every day smoker tobacco type: cigarettes Electronic Cigarette Use: without nicotine alcohol intake: never substance use type: does not use caffeine: Yes Type: coffee Number of servings: 2 ROS ROS Narrative General: Fatigue; drowsy/lethargic; fever not reported. Respiratory: Dyspnea, hypoxemia, diminished breath sounds; “wet/throaty” quality; no PE on CTA. Cardiovascular: Palpitations via tachycardia; no chest pain reported; intermittent ED hypotension, now normotensive. GI: No abdominal pain reported; GERD history. : Dysuria not recorded; UA positive for infection; non-obstructing nephrolithiasis on CT. Neuro: Paresthesias in legs; drowsy but oriented, follows commands; no focal deficits reported. MSK: Hip pain complaint. Skin: Not discussed. Psych: Anxiety history. Objective Data Objective Data Vital Signs: Vital Signs Last response 3 Temperature 37.2 C 06/02/25 00:00 Temperature Source Oral 06/02/25 00:00 Pulse Rate 128 H 06/02/25 03:00 Pulse Strength Weak (1+) 06/01/25 21:25 Respiratory Rate 14 06/02/25 03:00 Respiratory Effort Normal, Non-Labored 06/01/25 23:54 Respiratory Depth Normal 06/01/25 23:54 Respiratory Pattern Normal 06/01/25 23:54 Blood Pressure 106/52 L 06/02/25 03:00 Blood Pressure Mean 70 06/02/25 03:00 Blood Pressure Source Monitor 06/02/25 03:00 Blood Pressure Position Semi-Fowlers 06/02/25 03:00 Blood Pressure Location Left Arm 06/02/25 03:00 Pulse Ox 96 06/02/25 03:00 Oxygen Delivery Method Bi-pap 06/02/25 03:00 Oxygen Flow Rate (L/min) 6 06/02/25 02:00 Fraction of Inspired Oxygen (FIO2) 40 06/02/25 03:00 I&O: I&O Last 24 Hours 3 06/01/25 06/01/25 06/02/25 11:59 23:59 11:59 Intake Total 1999 500 / 500 Output Total 150 / 150 Balance 1999 / 1849 350 / 350 I&O: Total Stay 3 06/01/25 12:38 thru 06/02/25 00:29 Intake Total 2500 Output Total 150 Balance 2350 Current Meds Ordered / Administered: Current meds ordered / Administered 3 Generic Name Dose Route Start Last Admin Trade Name Freq PRN Reason Stop Dose Admin Fentanyl Citrate 25 mcg 06/02/25 01:38 Fentanyl 100 Mcg/2 Ml Ampul IV Q2H PRN PRN Pain Score 1-3 Furosemide 40 mg 06/02/25 10:00 Furosemide 40 Mg/4 Ml Vial IV DAILY [facility] Protocol Heparin Sodium (Porcine) 5,000 unit 06/01/25 22:00 06/01/25 22:19 Heparin Injection (Vial) 5,000 Unit/Ml Vial SC 5,000 unit Q8 JIN Administration Cefepime HCl 1 gm/ Sodium 50 mls @ 100 mls/hr 06/01/25 22:00 06/01/25 22:48 Chloride IV Infused Q8 JIN Infusion Sodium Chloride 250 mls @ 15 mls/hr 06/01/25 21:23 06/01/25 22:19 IV 15 mls/hr .[id number] PRN Administration Saline Flush Sodium Chloride 250 mls @ 15 mls/hr 06/01/25 21:23 IV .[id number] PRN Additional IVPB Infusion Sodium Chloride 10 - 40 ml 06/01/25 21:23 06/01/25 23:59 0.9% Saline Lock 10 Ml Syringe IV 20 ml UD PRN Administration SALINE FLUSH Physical Exam Narrative General: Morbidly obese female, drowsy but arousable, cooperative; speaking appropriately; in no acute distress at rest on supplemental O?. HEENT: No specific findings discussed. Neck: Not discussed. CV: Sinus tachycardia; perfusing; BP ~110s/60–70s currently. Resp: Diminished breath sounds bilaterally; “wet” upper-airway quality; on 6 L NC; BiPAP planned. Abdomen: Soft, non-tender by report; no acute abdominal findings on CT. : Voiding via Bryan not stated; UOP ~300 mL prior to lasix; additional UOP pending. Extremities: No exam findings documented. Neuro: Lethargic but oriented, obeys commands; no focal deficits reported. Skin: Not discussed. Lab / Micro Data 06/01/25 12:45 06/01/25 12:45 Labs: Laboratory Results - last 24 hr 06/01/25 12:45: WBC 17.2 H, RBC 4.29, Hgb 11.0 L, Hct 35.2 L, MCV 82.1, MCH 25.6 L, MCHC 31.3 L, RDW Std Deviation 60.1 H, RDW Coeff of Jordana 20.2 H, Plt Count 198, MPV 10.9, Immature Gran % (Auto) 0.200, Neut % (Auto) 95.4 H, Lymph % (Auto) 3.0 L, Hyde % (Auto) 0.5, Eos % (Auto) 0.1, Baso % (Auto) 0.8, Absolute Neuts (auto) 16.4 H, Absolute Lymphs (auto) 0.52 L, Nucleated RBC % 0, Differential Comment COMMENT, Anisocytosis 1+, PT 15.0 H, INR 1.2, APTT 37.6 H, Sodium 137, Potassium 4.2, Chloride 99, Carbon Dioxide 22.8, Anion Gap 15, BUN 21 H, Creatinine 1.85 H, Estim Creat Clear Calc 54.35, Est GFR (MDRD) Non-Af 33 L, BUN/Creatinine Ratio 11.1, Glucose 87, Calcium 8.4, Total Bilirubin 1.28, AST 31, ALT 18, Alkaline Phosphatase 118 H, Troponin T High Sens 40 H, NT pro BNP II 6489 H, Total Protein 5.9, Albumin 3.4 L, Globulin 2.5, Albumin/Globulin Ratio 1.3, Lipase 10 L 06/01/25 15:42: Troponin T Hi Sens 2 Hr 38 H 06/01/25 15:51: Urine Color Nanda, Urine Clarity Cloudy, Urine pH 8.0, Ur Specific [place] 1.010, Urine Protein 30 H, Urine Glucose (UA) Normal, Urine Ketones Negative, Urine Occult Blood 250 H, Urine Nitrite Positive H, Urine Bilirubin 1 H, Urine Urobilinogen Normal, Ur Leukocyte Esterase 500 H, Urine RBC 5-10 SEEN, Urine WBC 10-25 SEEN, Ur Squamous Epith Cells 0-5 SEEN, Ur Transition Epith Cell 0-5 SEEN, Ur Renal Epithelial Cell 0-5 SEEN, Urine Bacteria 4+, Urine Mucus 0 SEEN 06/01/25 17:46: Lactic Acid 3.8 H* 06/01/25 22:15: Lactic Acid 4.3 H* Micro: Microbiology 06/01/25 13:51 Mucosa - Nose SARS-CoV-2, Influenza & RSV (PCR) - Final ABG Data ABG results: ABG 06/01/25 14:49 Specimen Type THAI Sample Site Not entered VBG pH 7.39 VBG pO2 30 VBG HCO3 25 VBG Total CO2 27 VBG O2 Sat (Calc) 57 VBG Base Excess 0 POC Mix VBG pCO2 Pt Tmp 41.7 O2 Delivery Device Not entered Imaging Radiology Impression Chest X-Ray 06/01/25 13:46 IMPRESSION: Cardiomegaly with vascular congestion. No appreciable airspace consolidation or pleural effusion. Reading Location: [facility] Chest CTA 06/01/25 16:57 IMPRESSION: No central pulmonary arterial emboli. Inadequate evaluation of the segmental- subsegmental branches due to significant respiratory motion artifact and suboptimal IV contrast bolus timing. No airspace consolidation/edema, pneumothorax or pleural effusion. Ectatic caliber of central pulmonary vessels, may reflect pulmonary arterial hypertension. Reading Location: [facility] Assessment and Plan . Assessment and plan: Acute on Chronic Hypoxemic Respiratory Failure in the setting of ADHF with Pulmonary Hypertension, COPD, and OHS/MALIKA suspected * Evidence: Severe obesity, PH, congestion on CXR, high BNP, hypoxemia, diminished breath sounds; drowsiness may reflect hypercapnia and/or uremia/sepsis fatigue. Plan: * Noninvasive ventilation: Start BiPAP 12/5 cmH2O now; titrate to work of breathing/SpO? and, if available, to pH/Stacia * Oxygen: Wean 6 L NC once BiPAP started; avoid hyperoxia. * ABG/VBG: If ABG unobtainable, obtain VBG plus end-tidal CO2 if available. * Diuresis to reduce pulmonary congestion. * Bronchodilators: PRN duonebs if bronchospasm appears; no wheeze documented currently. * RT: Airway clearance, secretion management. Acute Decompensated Heart Failure / Volume Overload * Evidence: Congested CXR, Pro-BNP 6,489, clinical improvement goal with negative balance; prior fluid loading likely worsened dyspnea. Plan: * Furosemide IV 40 mg q12h to start; reassess UOP in 4–6 h; escalate dosing to achieve * Strict I/O, daily weight, q8–12 h BMP/Mg/Phos while titrating diuresis. * Echocardiogram to assess biventricular function, RVSP/PH burden, valves. * Avoid further crystalloid boluses unless clear evidence of hypoperfusion. Sepsis syndrome secondary to Complicated UTI * Evidence: Leukocytosis, UTI labs, rising lactate; hemodynamics currently stable. Plan: * Continue cefepime. Consider Proteus coverage adequate; if clinical instability or ESBL risk emerges, escalate per local antibiogram. Acute Kidney Injury — prerenal vs ATN vs CKD * Baseline renal function unknown; recent fluids + diuresis. Plan: * Monitor BMP q12–24h; adjust cefepime to GFR. * Diurese to euvolemia; avoid nephrotoxins * If oliguria persists or creatinine rises, obtain urine lytes and consider renal ultrasound if concern for obstruction changes. Sinus Tachycardia * Likely driven by hypoxemia, PH, sepsis, volume overload. Plan: * Treat underlying drivers. * Metoprolol: cautious low-dose PRN if persistent HR >120 and BP stable; avoid [id number] if RV failure suspected. * Continuous telemetry; if atrial fibrillation emerges, follow rate vs rhythm strategy per hemodynamics and PH status. Check electrolytes. COPD & Suspected OHS/MALIKA with home O2 non-adherence * Plan: * BiPAP as above; target nocturnal use and during naps. * Outpatient sleep medicine referral once stable; assess for home NIV/CPAP. * Counseling on adherence and smoking cessation Pain Management / Poly-allergy chart * Hip pain; allergy list reliability mixed Plan: * Fentanyl 25 mcg IV PRN for severe pain; monitor sedation/CO2 especially on BiPAP. * Avoid NSAIDs given RAFIA and HF. * Clarify allergy history formally when able; if acetaminophen allergy is disproven, consider PO/IV acetaminophen for opioid-sparing. VTE and Stress-Ulcer Prophylaxis * Plan: * Heparin 5,000 U SQ q8–12h unless contraindicated. * GI prophylaxis: consider PPI/H?RA if ongoing NIPPV + critical illness risk factors.
[2025-06-02 04:29] LABS: Hematocrit 34.1 % (37-47); Hemoglobin 10.8 g/dL (12.0-15.0); Mean Corp Hgb Conc 31.7 g/dL (32-36); Mean Corpuscular Volume 80.4 fL (81-99); Mean Platelet Vol. 10.9 fl (6.2-12.0); POSITIVE COUNT YES; POSITIVE DIFFERENTIAL YES; POSITIVE MORPHOLOGY YES; Platelet Count 134 K/mm3 (150-450); RBC Distribution Width CV 20.3 % (11.6-14.6); RBC Distribution Width SD 59.1 fl (35.1-43.9); Red Blood Count 4.24 M/mm3 (4.2-5.4)
[2025-06-02 04:43] LABS: White Blood Count 33.4 K/mm3 (4.4-11.0)
[2025-06-02 04:57] LABS: Anion Gap 14 (5-15); BUN 31 mg/dL (4-19); BUN/Creat Ratio 16.7 RATIO (10-20); Calcium,Total 8.3 mg/dL (7.6-11.0); Carbon Dioxide 22.0 mmol/L (21.0-32.0); Chloride 99 mmol/L (98-108); Estimated Creatinine Clearance 53.51 ml/min (50-250); Glucose 117 mg/dL (70-99); Potassium 4.8 mmol/L (3.3-5.1)
[2025-06-02 05:00] LABS: Differential Indicated MANUAL DIFF
[2025-06-02 05:02] LABS: Neutrophil-Band 27 % (0-5); Neutrophil-Segmented 61 % (47-70); Total Cells Counted 100 (MANUAL DIFF)
[2025-06-02 05:03] LABS: Red Cell Morphology NORM C+C NORMAL (NORM C&C)
[2025-06-02] MEDS: 0.9% Saline Lock 10 ML Syringe IV ×4 (05:52→20:40)
[2025-06-02] MEDS: Heparin Injection (Vial) 5,000 UNIT/ML VIAL 5000 UNIT SC ×3 (05:53→20:37)
[2025-06-02] MEDS: Cefepime HCl 1 GM in 0.9% Normal Saline (50mL MB+) 50 ML IV ×2 (05:53→20:39)
--- NOTE | 2025-06-02 10:05 | PCM.PN.BLA ---
Progress Note The patient is a 50-year-old female who was admitted with shortness of breath and hypotension in the setting of suspected sepsis, with concern for underlying UTI. In addition, there is concern for possible CHF exacerbation complicating the patient's presentation. CT imaging of the abdomen and pelvis were obtained. The patient received supplemental IV fluid hydration and was initiated on antimicrobials. She has not required vasopressor support. The patient is currently documented to be overall net +1.2 L for the hospitalization. Her white blood cell count is elevated at 33,000. Lactate is still elevated at 4.3. BNP was increased at 6500. Blood and urine cultures are pending. The patient did grow Proteus mirabilis from urine culture in January 2025. Surface echocardiogram is currently pending. 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 She also denies a history of sleep apnea. At the present time, the patient's oxygenation status is stable on 4 L/min. She is otherwise hemodynamically stable. Recommend continuing empiric BiPAP therapy with naps and nightly.
--- NOTE | 2025-06-02 12:28 | PCM.PN.HOSP ---
Reason for Visit Chief Complaint: shortness of breath Subjective Subjective Saw patient at bedside this morning. Patient was fatigued appearing but otherwise laying back comfortably in bed, conversing normally, in no acute distress. She was reporting some low back pain which is fairly chronic for her. No other acute concerns this morning. Objective Data Objective Data Vital Signs: Vital Signs Temp Pulse Resp BP Pulse Ox O2 Del Method O2 Flow Rate 98.1 F 127 H 20 H 93/58 L 96 Nasal Cannula 4 06/02/25 09:00 06/02/25 11:00 06/02/25 11:00 06/02/25 11:00 06/02/25 11:00 06/02/25 11:00 06/02/25 11:00 FiO2 40 06/02/25 04:00 Oxygen Flow Rate (L/min) 4 Oxygen Delivery Method Nasal Cannula Weight: 159.1 kg Body Mass Index (BMI) 64.5 Intake & Output: Intake and Output for Last 24 Hours 05/31/25 06/01/25 06/02/25 23:59 23:59 23:59 Intake Total 1999 1390 / 1390 Output Total 2750 / 2750 Balance 1999 -1360 / -1360 Lab / Micro Data 06/02/25 04:22 06/02/25 04:22 Labs: Laboratory Results - last 24 hr 06/01/25 12:45: WBC 17.2 H, RBC 4.29, Hgb 11.0 L, Hct 35.2 L, MCV 82.1, MCH 25.6 L, MCHC 31.3 L, RDW Std Deviation 60.1 H, RDW Coeff of Jordana 20.2 H, Plt Count 198, MPV 10.9, Immature Gran % (Auto) 0.200, Neut % (Auto) 95.4 H, Lymph % (Auto) 3.0 L, [place] % (Auto) 0.5, Eos % (Auto) 0.1, Baso % (Auto) 0.8, Absolute Neuts (auto) 16.4 H, Absolute Lymphs (auto) 0.52 L, Nucleated RBC % 0, Differential Comment COMMENT, Anisocytosis 1+, PT 15.0 H, INR 1.2, APTT 37.6 H, Sodium 137, Potassium 4.2, Chloride 99, Carbon Dioxide 22.8, Anion Gap 15, BUN 21 H, Creatinine 1.85 H, Estim Creat Clear Calc 54.35, Est GFR (MDRD) Non-Af 33 L, BUN/Creatinine Ratio 11.1, Glucose 87, Calcium 8.4, Total Bilirubin 1.28, AST 31, ALT 18, Alkaline Phosphatase 118 H, Troponin T High Sens 40 H, NT pro BNP II 6489 H, Total Protein 5.9, Albumin 3.4 L, Globulin 2.5, Albumin/Globulin Ratio 1.3, Lipase 10 L 06/01/25 15:42: Troponin T Hi Sens 2 Hr 38 H 06/01/25 15:51: Urine Color Nanda, Urine Clarity Cloudy, Urine pH 8.0, Ur Specific [place] 1.010, Urine Protein 30 H, Urine Glucose (UA) Normal, Urine Ketones Negative, Urine Occult Blood 250 H, Urine Nitrite Positive H, Urine Bilirubin 1 H, Urine Urobilinogen Normal, Ur Leukocyte Esterase 500 H, Urine RBC 5-10 SEEN, Urine WBC 10-25 SEEN, Ur Squamous Epith Cells 0-5 SEEN, Ur Transition Epith Cell 0-5 SEEN, Ur Renal Epithelial Cell 0-5 SEEN, Urine Bacteria 4+, Urine Mucus 0 SEEN 06/01/25 17:46: Lactic Acid 3.8 H* 06/01/25 22:15: Lactic Acid 4.3 H* 06/02/25 04:22: WBC 33.4 H*, RBC 4.24, Hgb 10.8 L, Hct 34.1 L, MCV 80.4 L, MCH 25.5 L, MCHC 31.7 L, RDW Std Deviation 59.1 H, RDW Coeff of Jordana 20.3 H, Plt Count 134 L, MPV 10.9, Immature Gran % (Auto) Not Reportable, Neut % (Auto) Not Reportable, Lymph % (Auto) Not Reportable, [place] % (Auto) Not Reportable, Eos % (Auto) Not Reportable, Baso % (Auto) Not Reportable, Absolute Neuts (auto) 29.4 H, Absolute Lymphs (auto) 2.00, Total Counted 100, Neutrophils % (Manual) 61, Band Neutrophils % 27 H, Lymphocytes % (Manual) 6 L, Monocytes % (Manual) 3, Metamyelocytes % 1, Myelocytes % 2 H, Nucleated RBC % Not Reportable, Diff Path Review May foll, Platelet Estimate SLT, RBC Morphology NORM C+C, Sodium 136, Potassium 4.8, Chloride 99, Carbon Dioxide 22.0, Anion Gap 14, BUN 31 H, Creatinine 1.84 H, Estim Creat Clear Calc 53.51, Est GFR (MDRD) Non-Af 33 L, BUN/Creatinine Ratio 16.7, Glucose 117 H, Calcium 8.3 Micro: Microbiology 06/01/25 15:51 Urine, Random Urine Culture - Preliminary Gram negative yaneth 06/01/25 18:00 Blood Culture (Wb) - Anticubital Right Blood Culture - Preliminary 06/01/25 17:46 Blood Culture (Wb) - Anticubital Left Blood Culture - Preliminary 06/01/25 13:51 Mucosa - Nose SARS-CoV-2, Influenza & RSV (PCR) - Final ABG Data ABG results: ABG 06/01/25 14:49 Specimen Type THAI Sample Site Not entered VBG pH 7.39 VBG pO2 30 VBG HCO3 25 VBG Total CO2 27 VBG O2 Sat (Calc) 57 VBG Base Excess 0 POC Mix VBG pCO2 Pt Tmp 41.7 O2 Delivery Device Not entered Radiography Diagnostic Testing: Radiology Impression Chest X-Ray 06/01/25 13:46 IMPRESSION: Cardiomegaly with vascular congestion. No appreciable airspace consolidation or pleural effusion. Reading Location: [facility] Chest CTA 06/01/25 16:57 IMPRESSION: No central pulmonary arterial emboli. Inadequate evaluation of the segmental-subsegmental branches due to significant respiratory motion artifact and suboptimal IV contrast bolus timing. No airspace consolidation/edema, pneumothorax or pleural effusion. Ectatic caliber of central pulmonary vessels, may reflect pulmonary arterial hypertension. Reading Location: [facility] Physical Exam Const alert, oriented x3 and no apparent distress Constitutional Narrative: Middle-age female, class III obesity, fatigued appearing but otherwise laying back comfortably in bed, conversing normally, in no acute distress. General Appearance: cooperative and comfortable HEENT normocephalic, head/scalp atraumatic, hearing grossly normal bilaterally, nasal mucous membranes and turbinates normal and moist oral mucous membranes Eyes PERRL, EOMs intact bilaterally and conjunctivae normal Neck full ROM Chest inspection of chest normal Resp normal respiratory effort, normal air movement, no use of accessory muscles and clear to auscultation bilaterally Cardio no murmurs and peripheral pulses 2+ throughout Cardio Narrative: Tachycardic, irregular rhythm. GI normal to inspection, nondistended, normoactive bowel sounds, soft to palpation, non-tender and non-distended Back/Spine normal ROM Extremity normal to inspection, full ROM and no pedal edema Skin no rashes or lesions noted Psych mental status grossly normal Mood & Affect: anxious Assessment & Plan Assessment/Plan (1) Sepsis: (2) UTI (urinary tract infection): PLAN: Plan Patient is a 50-year-old female who presented to [facility] ED on 06/01/2025 with fever/chills and shortness of breath. 1. 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 Met sepsis criteria on admit with elevated lactic acid, RAFIA, leukocytosis and SBP less than 90 in setting of UTI. UA showed positive nitrates, 500 leukocyte esterase, 4+ bacteria. Urine culture prelim positive for gram-negative rods. Notably had urine culture from January that grew Proteus that was sensitive to everything but Macrobid. CT abdomen pelvis with IV contrast showed a small 5 mm nonobstructing left kidney stone but otherwise no hydronephrosis or hydroureter. Was not given the full 30 cc/kg of IV fluids on admission due to concern for acute HFpEF as below. However, BPs soft to the low 90s over 50s on hospital day 2 and patient with A-fib with RVR to the 130s, so decision was made to give 1 L of LR over several hours. Will monitor closely. Continue IV cefepime and follow-up final urine culture. 2. Acute HFpEF with pulmonary hypertension and acute hypoxia – Follows with outpatient cardiology. Not on home oxygen. Requiring up to 2 L nasal cannula to maintain appropriate oxygen saturations. No prior diagnosis of heart failure. BNP elevated at over 6000 on admission. CTA chest with no PE and no airspace consolidation/edema or pleural effusion noted. Chest x-ray did show cardiomegaly with some central vascular congestion. Patient stable on room air at rest. Echo on 06/02 showed EF 55%, normal LV size and function, normal RV size and function, PASP 36 mmHg, no other concerning findings. Given her clinical picture, I suspect this mild degree of vascular congestion is secondary to A-fib with RVR in the setting of sepsis as above. Was given 2 doses of IV Lasix with worsening blood pressures as above, will hold off on further Lasix. Getting IV fluids as above and will restart home Lopressor to assist with controlling heart rate. Wean supplemental oxygen as able. 3. A-fib with RVR – Follows with outpatient cardiology as above. Patient did have an episode of A-fib with RVR in the past when she was in the hospital for sepsis. A-fib resolved with her infection and she has had no recurrence of A-fib until this hospitalization. Presume secondary to sepsis again. Will continue home Lopressor 25 mg twice daily and add IV Lopressor 5 mg every 6 hours as needed for elevated heart rate. Given the acute nature of A-fib again as well as her history of GERD with PUD and gastritis as below, will hold off on anticoagulation. 4. RAFIA – Creatinine 1.85 on admit, baseline around 0.7-0.8. Presumed prerenal etiology in setting of sepsis as above as well as decreased perfusion from A-fib with RVR as above. Notably patient did receive IV contrast with CTA chest and CT abdomen pelvis on admit. Treatment as above. Monitor daily BMP and urine output. 5. Left-sided nephrolithiasis – CT abdomen pelvis on admit showed a 5 mm obstructing left-sided kidney stone with no hydronephrosis noted. No need for urology consult at this time. Chronic medical conditions: – Class III obesity with suspected MALIKA: BMI 64 on admit. Complicates hospital course and care. Patient stable on 2 L nasal cannula at rest at this time. Suspect she may have some degree of obesity hypoventilation syndrome as well. Continue empiric PAP therapy at night and with naps. – Bipolar disorder: Stable. Continue home sertraline, Seroquel, and Rexulti. – Chronic low back pain with spasms: Continue home Celebrex as needed and benztropine. – COPD/asthma: Not in acute exacerbation. Continue home inhalers. – Hypothyroidism: Continue on Synthroid. – Overactive bladder: Continue home oxybutynin. – GERD with history of PUD and gastritis: Continue home PPI and famotidine. – Hypertension/hyperlipidemia: Continue home colestipol. – Tobacco dependence: Nicotine replacement therapy available per patient request. Discussed cessation on discharge. DVT prophylaxis: Heparin subcu CODE STATUS: Full code, verified Expected disposition: TBD Total clinical time spent by myself addressing the patient's medical issues, reviewing all the data, and collaborating with patient's care team: 52 minutes. Charges/Coding Visit Charges Inpatient E&M: 54328 Subs Hosp L3
[2025-06-02] MEDS: BREXPIPRAZOLE 1 MG TABLET PO (14:26)
--- NOTE | 2025-06-02 15:49 | CASEMGMT ---
PRADEEP FLOWER Assessment Face to Face with patient for initial transition planning/care coordination assessment. PRADEEP FLOWER introduced self and role at [facility], pt voices understanding. Pt is A&Ox4 and is resting comfortably in the chair and is calm. Care providers, pharmacy, and demographics verified. Admitting dx: Sepsis, UTI, Acute HF LACE Strata: 2 PCP: Annette Samano Specialists: TRI, Mercedez MONTES, Curtis (PM [facility]). Pt states that she does not see a Licensed Home Inspector. Preferred Pharmacy: [facility] Insurance: [employer] Prescription Benefit: Yes LNOK: Kalani (Daughter), Rahul (XH) Living Arrangements: Pt lives with her XH in a mobile home with a ramp to enter ADLs/IADLs: Pt reports that she is mainly indep but that her XH assists with tasks such as showering Transportation: DME: FWW, WC, Shower chair, Nebulizer. Pt is currently requiring additional oxygen and may qualify for home oxygen use. A verbal list of local in-network DME companies were provided to the pt at this time. Pt prefers [facility]. HHC/SNF: Pt reports recent hx with [facility]. Reports hx at [facility]. Pt’s goal: Home with HHC Plan: TBD. See PT notes. Per ST note, no ST services needed at DC. Follow for oxygen needs. Pt states that she smokes 1/2 pack of cigarettes per day. Pt denies social work f/u or cessation resources. Pt denies EtOH or illicit drug use. At this time, the pt states that she prefers to return home at the time of DC. However, pt may be open to SNF if warranted. CM to follow. At this time, pt denies wanting to review a list of local in-network HHC agencies and states that she prefers [facility]. CM to make referral once appropriate. Echo results are pending. Pt denies further questions or concerns at this time. CM to follow. Royce Chang RN, CM
--- NOTE | 2025-06-02 16:03 | CHAPLAIN ---
Type of Pastoral Visit _x__ Initial Visit ___ Follow-up Visit ___ On-call Visit ___ General Patient Visit ___ Spiritual Assessment ___ Family Conference ___ Bereavement ___ Rapid Response ___ Code Blue ___ Other (describe below) Pastoral Care Referral From _x__ Patient ___ Family ___ Nurse ___ Physician ___ Health Information Coder ___ Green Pipefitter ___ Other (describe below) Sacrament/Intervention _x__ Active listening ___ Anointing ___ Protestant _x__ Bereavement ___ Communion _x__ Valarie exploration ___ _x__ Life review _x__ Prayer ___ Reconciliation ___ Sacrament of Sick _x__ Supportive presence ___ Wedding ___ Other (describe below) Pastoral Comments patient immediately speaks of the "time you came when my son was in here and dying"; pt reviews her grief with loss of her son and more recently her father this month; offer of support, listening ear, and affirmation; pt says that she is spiritual but not affiliated with a hinduism group; pt is talkative and shares her concerns for wellness; pt welcomes "prayers today and prayers any day"
[2025-06-02] MEDS: Lactated Ringers 1,000 ML 250 ML IV (16:47)
[2025-06-02] MEDS: Budesonide Respules 0.5 MG/2 ML AMPUL.NEB. INHALATION (20:01)
--- NOTE | 2025-06-02 20:40 | PCM.HOSP.N ---
Hospitalist Note Notified by nrsg that pt's ventricular rate is bursting up to 140s, but steady in the 120 range, while still in AFib, SBP low 100s. Considering digoxin 250mcg x1 if she should sustain ventricular rate greater than 150, as current PRN therapy of metoprolol is not effective in sustaining a controlled rate. Guidelines from the [place] [employer] and [place] [employer] recommend beta-blockers and nondihydropyridine calcium channel blockers as first-line agents for rate control in AF, but digoxin is appropriate as adjunctive therapy when hypotension precludes further titration of these agents. Digoxin is particularly considered in patients with heart failure or pulmonary hypertension, where negative inotropic effects of other agents are undesirable.
--- NOTE | 2025-06-02 23:48 | CT_ITS ---
PROCEDURE: ABDOMEN/PELVIS W IV CONT ONLY 06/02/2025 REASON FOR EXAM: SEPSIS, ABDOMINAL PAIN TECHNIQUE: Procedure Code: [id number] Modality: CT Procedure: ABDOMEN/PELVIS W IV CONT ONLY Coronal and Sagittal reconstruction series were provided. CONTRAST: VOLUME: mL One or more dose reduction techniques were used (e.g., Automated exposure control, adjustment of the mA and/or kV according to patient size, use of iterative reconstruction technique. FINDINGS: The visualized lung bases are clear. The heart is mildly enlarged. Fatty liver. The gallbladder, pancreas, spleen, and adrenal glands appear unremarkable. The uterus is present. Contrast material is seen within the right renal pelvis, right ureter, and urinary bladder. No contrast excretion is identified within the left renal collecting system. A 5 mm hyperdensity within the left renal pelvis likely represents a stone. No hydronephrosis. Cortical cysts are seen within both kidneys. Moderate-sized fat-containing umbilical hernia. No evidence of a bowel obstruction. No bowel wall thickening. The appendix is visualized and unremarkable. No intraperitoneal free air or free fluid. No abdominal nor pelvic lymphadenopathy. No acute osseous abnormality. No acute fracture. Mild thoracolumbar spondylosis. : 1. A 5 mm nonobstructing left nephrolithiasis. 2. Contrast material within the right renal collecting system. No contrast excretion within the left renal collecting system at the time of imaging. This is atypical, but can be seen with altered renal hemodynamics such as unilateral renal artery stenosis. No hydronephrosis nor hydroureter. 3. No other acute abdominal or pelvic process is identified. Reading Location: [id number]
[2025-06-03] VITALS (41 sets, daily range): BP systolic 95–138; BP diastolic 57–93; PULSE 93–160; RESP 14–26; TEMP 36.8–37; O2SAT 93–99; BMI 65.6
[2025-06-03] MEDS: Digoxin 250 MCG/ML Ampul IV (02:43)
[2025-06-03 03:00] LABS: Hematocrit 32.6 % (37-47); Hemoglobin 10.5 g/dL (12.0-15.0); Mean Corp Hgb Conc 32.2 g/dL (32-36); Mean Corpuscular Volume 79.1 fL (81-99); Mean Platelet Vol. 10.4 fl (6.2-12.0); POSITIVE COUNT YES; RBC Distribution Width CV 19.9 % (11.6-14.6); RBC Distribution Width SD 57.2 fl (35.1-43.9); Red Blood Count 4.12 M/mm3 (4.2-5.4); White Blood Count 13.5 K/mm3 (4.4-11.0)
[2025-06-03 03:26] LABS: Scan Indicated on CBC? Y/N YES- FLAGS NOTED
[2025-06-03 03:27] LABS: Anion Gap 10 (5-15); BUN 33 mg/dL (4-19); BUN/Creat Ratio 36.1 RATIO (10-20); Calcium,Total 8.7 mg/dL (7.6-11.0); Carbon Dioxide 25.8 mmol/L (21.0-32.0); Chloride 101 mmol/L (98-108); Estimated Creatinine Clearance 107.01 ml/min (50-250); Glucose 123 mg/dL (70-99); Platelet Count 90 K/mm3 (150-450); Potassium 4.1 mmol/L (3.3-5.1)
[2025-06-03] MEDS: 0.9% Saline Lock 10 ML Syringe IV ×3 (05:09→20:15)
[2025-06-03] MEDS: Budesonide Respules 0.5 MG/2 ML AMPUL.NEB. INHALATION ×2 (06:53→17:27)
--- NOTE | 2025-06-03 07:33 | PCM.PN.INT ---
Assessment & Plan Assessment/Plan (1) Sepsis: PLAN: Plan RECOMMENDATIONS: 1. Continue antimicrobials, pending finalized culture results. 2. Agree with resuming home beta-yvonne regimen. Depending on heart rate response, may require additional upward titration versus initiation of amiodarone. 3. Continue Pulmicort and as needed bronchodilator therapy. 4. Continue to wean supplemental oxygen to maintain saturations at or above 90%. 5. Encourage incentive spirometer use and mobilize patient as tolerated. 6. Empiric BiPAP therapy with naps and nightly. IMPRESSIONS: 1. Sepsis The patient presented to the hospital with shortness of breath and hypotension in the setting of gram-negative sepsis with concern for Proteus urinary tract source of infection with secondary hematogenous spread. The patient remains hemodynamically stable. She remains on appropriate antimicrobials, pending finalized culture results. 2. Heart failure with preserved ejection fraction At the present time, the patient's respiratory status is stable. Therefore, hold off on additional diuretics. Continue supportive care as noted above. 3. Atrial fibrillation with RVR Agree with resuming home beta-yvonne regimen, with additional upward titration as needed. If the patient remains in refractory atrial fibrillation with RVR, would consider amiodarone. Echocardiogram was unremarkable, with the exception of a pulmonary artery systolic pressure that was estimated to be 36 mmHg. 4. Acute kidney injury Resolved. Most likely prerenal in etiology in the setting of sepsis. Continue to monitor urine output. No current indication for renal replacement therapy. 5. Super morbid obesity/bipolar disorder/questionable COPD/suspected sleep apnea and alveolar hypoventilation secondary to obesity Complicates care, management, recovery and prognosis. Recommend continuing empiric PAP therapy with naps and nightly. The patient would ultimately benefit from establishing care with a pulmonary provider on an outpatient basis. This note was generated with Micro[employer] dictation software. It may contain incorrect words, spelling, and punctuation that were not noted in checking the note before signing. Subjective Subjective The patient was seen and examined at the bedside this morning. Events from the last 24 hours have been reviewed. The patient is currently afebrile, hemodynamically stable and maintaining appropriate oxygen saturations on 2 L/min via nasal cannula. The patient had an uneventful night. She did receive a one-time dose of digoxin secondary to atrial fibrillation with RVR. However, the patient remains tachycardic this morning. Accordingly, her home beta-yvonne regimen was resumed. White blood cell count has improved to 13,000. Hemoglobin is stable at 10.5 g/dL. Creatinine has normalized. Objective Data Objective Data The patient's most recent lab work, culture data and imaging studies have all been personally reviewed. Surface echocardiogram demonstrated normal LV size and function with an ejection fraction of 55%. Pulmonary artery systolic pressure was estimated to be 36 mmHg. Urine cultures currently demonstrating growth of Proteus mirabilis. Blood cultures were positive for gram-negative rods. Vital Signs: Vital Signs Temp Pulse Resp BP Pulse Ox O2 Del Method O2 Flow Rate 98.6 F 123 H 18 111/63 94 Nasal Cannula 2 06/03/25 04:00 06/03/25 06:55 06/03/25 06:55 06/03/25 06:00 06/03/25 06:55 06/03/25 06:55 06/03/25 06:55 FiO2 40 06/02/25 04:00 Oxygen Flow Rate (L/min) 2 Oxygen Delivery Method Nasal Cannula Weight: 356 lb 11.327 oz Body Mass Index (BMI) 65.6 Intake & Output: Intake and Output for Last 24 Hours 06/01/25 06/02/25 06/03/25 23:59 23:59 23:59 Intake Total 1999 3226.25 / 3226.25 Output Total 3850 / 3850 400 / 400 Balance 1999 -623.75 / -623.75 -400 / -400 Lab / Micro Data Attestation: I reviewed the patient's lab results. 06/03/25 02:52 06/03/25 02:52 Labs: Laboratory Results - last 24 hr 06/02/25 04:22: Diff Path Review Reviewed 06/03/25 02:52: WBC 13.5 H, RBC 4.12 L, Hgb 10.5 L, Hct 32.6 L, MCV 79.1 L, MCH 25.5 L, MCHC 32.2, RDW Std Deviation 57.2 H, RDW Coeff of Jordaan 19.9 H, Plt Count 90 L, MPV 10.4, Sodium 137, Potassium 4.1, Chloride 101, Carbon Dioxide 25.8, Anion Gap 10, BUN 33 H, Creatinine 0.92, Estim Creat Clear Calc 107.01, Est GFR (MDRD) Non-Af 75, BUN/Creatinine Ratio 36.1 H, Glucose 123 H, Calcium 8.7 Micro: Microbiology 06/01/25 15:51 Urine, Random Urine Culture - Final Proteus mirabilis 06/01/25 18:00 Blood Culture (Wb) - Anticubital Right Blood Culture - Preliminary 06/01/25 17:46 Blood Culture (Wb) - Anticubital Left Blood Culture - Preliminary 06/01/25 13:51 Mucosa - Nose SARS-CoV-2, Influenza & RSV (PCR) - Final Radiography Diagnostic Testing: Radiology Impression Echocardiogram 06/01/25 21:12 Interpretation Summary Normal LV size. The left ventricular ejection fraction is 55 %. The study was technically limited. The study was technically difficult. Ordering Physician: Maryuri Coyle Referring Physician: MERLYN AMAYA Performed By: Maryana Hagen RCS Physical Exam Const alert, oriented x3 and no apparent distress Constitutional Narrative: Super morbidly obese. Resting comfortably in bed. General Appearance: cooperative HEENT normocephalic and head/scalp atraumatic Eyes PERRL, EOMs intact bilaterally and conjunctivae normal Neck supple Neck Narrative: Large neck circumference with redundant soft tissue. General: trachea midline Chest inspection of chest normal Resp normal respiratory effort Auscultation: Negative for rales, rhonchi or wheezes Cardio S1 normal heart sound and S2 normal heart sound Rate: tachycardic Rhythm: abnormal rhythm GI normal to inspection, nondistended, normoactive bowel sounds Extremity no clubbing, cyanosis or edema Skin no rashes or lesions noted Neuro CN's II-XII intact bilaterally, moves all extremities and no focal motor deficits Psych cooperative and affect normal Charges/Coding Visit Charges Inpatient E&M: 04706 Subs Hosp L3
[2025-06-03 08:31] LABS: Magnesium 2.1 mg/dL (1.5-2.2)
[2025-06-03] MEDS: BREXPIPRAZOLE 1 MG TABLET PO (09:29)
[2025-06-03] MEDS: Cefepime HCl 1 GM in 0.9% Normal Saline (50mL MB+) 50 ML IV ×2 (09:44→20:15)
[2025-06-03] MEDS: 0.9% Normal Saline (250mL Bag) 250 ML 15 ML IV (10:00)
--- NOTE | 2025-06-03 10:00 | CASEMGMT ---
During rounds, the hospitalist reports that the pt's will remain in the ICU today due to AFib and pt's uncontrolled HR with possible CV at a later time. CM to continue to follow for DC needs.
--- NOTE | 2025-06-03 11:07 | PN.HOSP_ITS ---
Reason for Visit Chief Complaint: shortness of breath Subjective Subjective Saw patient at bedside this morning, nursing staff present. Patient was still fatigued appearing but otherwise sitting back comfortably in bed and in no acute distress. She continues to feel weaker than her normal and refused to work with physical therapy this morning. She remains in A-fib with RVR with heart rate up to the 140s. She was given 1 dose of IV digoxin overnight without improvement. Her home Lopressor was restarted and she was given a dose of IV Lopressor as well this morning without much improvement. She was then given a bolus of IV Cardizem 20 mg with transient improvement in heart rate to the 90s to 100s but she remained in A-fib. Discussed with Dr. Logan and will plan to give an IV amiodarone bolus to see if this converts her back to normal sinus rhythm. Notably she is not on anticoagulation but echo on 06/02 showed no concern for left-sided thrombus. Patient has history of transient A-fib secondary to sepsis in the past. Will attempt minimize amiodarone as able as we suspect the A-fib will continue to improve as her sepsis improves as well. Objective Data Objective Data Vital Signs: Vital Signs Temp Pulse Resp BP Pulse Ox O2 Del Method O2 Flow Rate 98.5 F 105 H 16 107/71 94 Nasal Cannula 3 06/03/25 08:00 06/03/25 10:45 06/03/25 10:00 06/03/25 10:45 06/03/25 10:00 06/03/25 10:00 06/03/25 10:00 FiO2 40 06/02/25 04:00 Oxygen Flow Rate (L/min) 3 Oxygen Delivery Method Nasal Cannula Weight: 161.8 kg Body Mass Index (BMI) 65.6 Intake & Output: Intake and Output for Last 24 Hours 06/01/25 06/02/25 06/03/25 23:59 23:59 23:59 Intake Total 1999 3226.25 / 3226.25 230 / 230 Output Total 3850 / 3850 400 / 400 Balance 1999 -623.75 / -623.75 -170 / -170 Lab / Micro Data 06/03/25 02:52 06/03/25 02:52 Labs: Laboratory Results - last 24 hr 06/02/25 04:22: Diff Path Review Reviewed 06/03/25 02:52: WBC 13.5 H, RBC 4.12 L, Hgb 10.5 L, Hct 32.6 L, MCV 79.1 L, MCH 25.5 L, MCHC 32.2, RDW Std Deviation 57.2 H, RDW Coeff of Jordana 19.9 H, Plt Count 90 L, MPV 10.4, Sodium 137, Potassium 4.1, Chloride 101, Carbon Dioxide 25.8, Anion Gap 10, BUN 33 H, Creatinine 0.92, Estim Creat Clear Calc 107.01, Est GFR (MDRD) Non-Af 75, BUN/Creatinine Ratio 36.1 H, Glucose 123 H, Calcium 8.7, Phosphorus 3.0, Magnesium 2.1 Micro: Microbiology 06/01/25 17:46 Blood Culture (Wb) - Anticubital Left Blood Culture - Preliminary Gram negative yaneth 06/01/25 18:00 Blood Culture (Wb) - Anticubital Right Blood Culture - Preliminary Gram negative yaneth 06/01/25 15:51 Urine, Random Urine Culture - Final Proteus mirabilis 06/01/25 13:51 Mucosa - Nose SARS-CoV-2, Influenza & RSV (PCR) - Final Radiography Diagnostic Testing: Radiology Impression Echocardiogram 06/01/25 21:12 Interpretation Summary Normal LV size. The left ventricular ejection fraction is 55 %. The study was technically limited. The study was technically difficult. Ordering Physician: Maryuri Coyle Referring Physician: MERLYN AMAYA Performed By: Maryana Hagen RCS Physical Exam Const alert, oriented x3 and no apparent distress Constitutional Narrative: Middle-age female, class III obesity, fatigued appearing but otherwise laying back comfortably in bed, conversing normally, in no acute distress. Stable. General Appearance: cooperative and comfortable HEENT normocephalic, head/scalp atraumatic, hearing grossly normal bilaterally, nasal mucous membranes and turbinates normal and moist oral mucous membranes Eyes PERRL, EOMs intact bilaterally and conjunctivae normal Neck full ROM Chest inspection of chest normal Resp normal respiratory effort, normal air movement, no use of accessory muscles and clear to auscultation bilaterally Cardio no murmurs and peripheral pulses 2+ throughout Cardio Narrative: Tachycardic, irregular rhythm. GI normal to inspection, nondistended, normoactive bowel sounds, soft to palpation, non-tender and non-distended Back/Spine normal ROM Extremity normal to inspection, full ROM and no pedal edema Skin no rashes or lesions noted Psych mental status grossly normal Mood & Affect: anxious Assessment & Plan Assessment/Plan (1) Sepsis: (2) UTI (urinary tract infection): PLAN: Plan Patient is a 50-year-old female who presented to [facility] ED on 06/01/2025 with fever/chills and shortness of breath. 1. Sepsis without shock secondary to UTI, improving – Pediatric Physical Therapist following. Met sepsis criteria on admit with elevated lactic acid, RAFIA, leukocytosis and SBP less than 90 in setting of UTI. UA showed positive nitrates, 500 leukocyte esterase, 4+ bacteria. Notably had urine culture from January that grew Proteus that was sensitive to everything but Macrobid. CT abdomen pelvis with IV contrast showed a small 5 mm nonobstructing left kidney stone but otherwise no hydronephrosis or hydroureter. Was not given the full 30 cc/kg of IV fluids on admission due to concern for acute HFpEF as below, but patient had soft blood pressures on hospital day 2 so was given another 1 L of IV fluids. Has not required any pressors. Leukocytosis much improved and patient afebrile. Urine culture again grew Proteus sensitive to everything with Macrobid. Okay to continue IV cefepime for now with plan to transition to p.o. antibiotics in the next 1 to 2 days. 2. Acute HFpEF with pulmonary hypertension and acute hypoxia – Follows with outpatient cardiology. Not on home oxygen. Requiring up to 2 L nasal cannula to maintain appropriate oxygen saturations. No prior diagnosis of heart failure. BNP elevated at over 6000 on admission. CTA chest with no PE and no airspace consolidation/edema or pleural effusion noted. Chest x-ray did show cardiomegaly with some central vascular congestion. Patient stable on room air at rest. Echo on 06/02 showed EF 55%, normal LV size and function, normal RV size and function, PASP 36 mmHg, no other concerning findings. Given her clinical picture, I suspect this mild degree of vascular congestion is secondary to A-fib with RVR in the setting of sepsis as above. Was given 2 doses of IV Lasix with worsening blood pressures as above, will hold off on further Lasix. Treating A-fib with RVR as below. Weaning supplemental oxygen as able. 3. A-fib with RVR – Follows with outpatient cardiology as above. Patient did have an episode of A-fib with RVR in the past when she was in the hospital for sepsis. A-fib resolved with her infection and she has had no recurrence of A-fib until this hospitalization. Presume secondary to sepsis again. Restarted home Lopressor 25 mg twice daily and added IV Lopressor 5 mg every 6 hours without much improvement. Given doses of IV digoxin and an IV Cardizem bolus without significant improvement. Will give a bolus of IV amiodarone 150 mg at this time and attempt to convert her back to sinus rhythm. Notably she is not on anticoagulation due to history of GERD with PUD and gastritis as below, but echo on 06/02 showed no concern for thrombus. Continue cardiac monitoring. 4. RAFIA, resolved – Creatinine 1.85 on admit, baseline around 0.7-0.9. Presumed prerenal etiology in setting of sepsis as above as well as decreased perfusion from A-fib with RVR as above. Notably patient did receive IV contrast with CTA chest and CT abdomen pelvis on admit. Creatinine resolved back to baseline on 06/03. Continue to monitor daily BMP and urine output. 5. Left-sided nephrolithiasis – CT abdomen pelvis on admit showed a 5 mm obstructing left-sided kidney stone with no hydronephrosis noted. No need for urology consult at this time. Chronic medical conditions: – Class III obesity with suspected MALIKA: BMI 64 on admit. Complicates hospital course and care. Patient stable on 2 L nasal cannula at rest at this time. Suspect she may have some degree of obesity hypoventilation syndrome as well. Continue empiric PAP therapy at night and with naps. – Bipolar disorder: Stable. Continue home sertraline, Seroquel, and Rexulti. – Chronic low back pain with spasms: Continue home Celebrex as needed and benztropine. – COPD/asthma: Not in acute exacerbation. Continue home inhalers. – Hypothyroidism: Continue on Synthroid. – Overactive bladder: Continue home oxybutynin. – GERD with history of PUD and gastritis: Continue home PPI and famotidine. – Hypertension/hyperlipidemia: Continue home colestipol. – Tobacco dependence: Nicotine replacement therapy available per patient request. Discussed cessation on discharge. DVT prophylaxis: Heparin subcu CODE STATUS: Full code, verified Expected disposition: Home with home health care versus SNF, TBD Total clinical time spent by myself addressing the patient's medical issues, reviewing all the data, and collaborating with patient's care team: 42 minutes. Charges/Coding Visit Charges Inpatient E&M: 05572 Subs Hosp L2
[2025-06-03] MEDS: Amiodarone 150 MG in Dextrose 5%-Water (100mL Bag) 100 ML 600 MG IV BOLUS (11:43)
--- NOTE | 2025-06-03 14:00 | NURSING ---
RN had multiple conversations with patient regarding getting out of bed. Patient states she wants to skip therapy today. RN educated patient on risks of staying in bed, however, patient does not feel comfortable getting up due to change in medications. Physical therapy made aware during rounds. Turning patient in bed per protocol.
[2025-06-03] MEDS: Amiodarone 360 MG in Dextrose 5% Viaflo Bag 192.8 ML 33.3 MG CONT INF (14:23)
[2025-06-03] MEDS: MENTHOL 226.8 GM JAR 1 APPLIC TOPICAL (18:13)
[2025-06-03] MEDS: Amiodarone 360 MG in Dextrose 5% Viaflo Bag 192.8 ML 16.7 MG CONT INF (19:46)
[2025-06-04] VITALS (26 sets, daily range): BP systolic 99–133; BP diastolic 62–89; PULSE 80–129; RESP 16–27; TEMP 36.4–37.2; O2SAT 89–100; BMI 66.1
[2025-06-04] MEDS: 0.9% Saline Lock 10 ML Syringe IV ×2 (04:57→15:41)
[2025-06-04] MEDS: MENTHOL 226.8 GM JAR 1 APPLIC TOPICAL (04:58)
[2025-06-04 05:07] LABS: Hematocrit 30.4 % (37-47); Hemoglobin 9.9 g/dL (12.0-15.0); Mean Corp Hgb Conc 32.6 g/dL (32-36); Mean Corpuscular Volume 79.2 fL (81-99); Mean Platelet Vol. 11.5 fl (6.2-12.0); Platelet Count 100 K/mm3 (150-450); RBC Distribution Width CV 19.7 % (11.6-14.6); RBC Distribution Width SD 56.0 fl (35.1-43.9); Red Blood Count 3.84 M/mm3 (4.2-5.4); White Blood Count 9.4 K/mm3 (4.4-11.0)
[2025-06-04 06:00] LABS: Anion Gap 8 (5-15); BUN 21 mg/dL (4-19); BUN/Creat Ratio 32.3 RATIO (10-20); Calcium,Total 8.5 mg/dL (7.6-11.0); Carbon Dioxide 27.6 mmol/L (21.0-32.0); Chloride 102 mmol/L (98-108); Estimated Creatinine Clearance 153.98 ml/min (50-250); Glucose 112 mg/dL (70-99); Potassium 4.2 mmol/L (3.3-5.1)
[2025-06-04] MEDS: Budesonide Respules 0.5 MG/2 ML AMPUL.NEB. INHALATION ×2 (06:44→19:26)
[2025-06-04] MEDS: Amiodarone 360 MG in Dextrose 5% Viaflo Bag 192.8 ML 16.7 MG CONT INF (06:59)
[2025-06-04] MEDS: BREXPIPRAZOLE 1 MG TABLET PO (09:20)
--- NOTE | 2025-06-04 09:48 | PCM.PN.INT ---
Assessment & Plan Assessment/Plan (1) Sepsis: PLAN: Plan RECOMMENDATIONS: 1. Continue antimicrobials to complete 7 days of therapy. 2. Increase beta-yvonne regimen in hopes of discontinuing amiodarone. 3. Continue Pulmicort and as needed bronchodilator therapy. 4. Continue to wean supplemental oxygen to maintain saturations at or above 90%. 5. Encourage incentive spirometer use and mobilize patient as tolerated. 6. Empiric BiPAP therapy with naps and nightly. 7. The patient can be made stepdown status from my perspective. IMPRESSIONS: 1. Sepsis The patient presented to the hospital with shortness of breath and hypotension in the setting of gram-negative sepsis with concern for Proteus urinary tract source of infection with secondary hematogenous spread. The patient remains hemodynamically stable. Recommend continuing antimicrobials to complete 7 days of therapy. 2. Heart failure with preserved ejection fraction At the present time, the patient's respiratory status is stable. Therefore, hold off on additional diuretics. Continue supportive care as noted above. 3. Atrial fibrillation with RVR Although the patient was started on amiodarone with subsequent improvement in her heart rate control, we will plan to increase her beta-yvonne regimen today in hopes of weaning her completely from amiodarone. Echocardiogram was unremarkable, with the exception of a pulmonary artery systolic pressure that was estimated to be 36 mmHg. 4. Acute kidney injury Resolved. Most likely prerenal in etiology in the setting of sepsis. Continue to monitor urine output. No current indication for renal replacement therapy. 5. Super morbid obesity/bipolar disorder/questionable COPD/suspected sleep apnea and alveolar hypoventilation secondary to obesity Complicates care, management, recovery and prognosis. Recommend continuing empiric PAP therapy with naps and nightly. The patient would ultimately benefit from establishing care with a pulmonary provider on an outpatient basis. This note was generated with [employer] dictation software. It may contain incorrect words, spelling, and punctuation that were not noted in checking the note before signing. Subjective Subjective The patient was seen and examined at the bedside this morning. Events from the last 24 hours have been reviewed. The patient is currently afebrile, hemodynamically stable and maintaining appropriate oxygen saturations on 3 L/min via nasal cannula. The patient's heart rate is under better control after being started on amiodarone yesterday. The patient did report fecal incontinence with coughing this morning. White blood cell count has normalized. Platelet count is improving. Creatinine remains within normal limits. Objective Data Objective Data The patient's most recent lab work, culture data and imaging studies have all been personally reviewed. Surface echocardiogram demonstrated normal LV size and function with an ejection fraction of 55%. Pulmonary artery systolic pressure was estimated to be 36 mmHg. Urine cultures currently demonstrating growth of Proteus mirabilis. Blood cultures were positive for gram-negative rods. Vital Signs: Vital Signs Temp Pulse Resp BP Pulse Ox O2 Del Method O2 Flow Rate 98.2 F 123 H 16 110/89 H 97 Nasal Cannula 3 06/03/25 12:00 06/04/25 09:18 06/04/25 07:00 06/04/25 09:18 06/04/25 07:00 06/04/25 07:00 06/04/25 07:00 FiO2 40 06/02/25 04:00 Oxygen Flow Rate (L/min) 3 Oxygen Delivery Method Nasal Cannula Weight: 359 lb 5.655 oz Body Mass Index (BMI) 66.1 Intake & Output: Intake and Output for Last 24 Hours 06/02/25 06/03/25 06/04/25 23:59 23:59 23:59 Intake Total 3226.25 / 3226.25 790.15 / 790.15 187.32 / 187.32 Output Total 3850 / 3850 1200 / 1200 Balance -623.75 / -623.75 -409.85 / -409.85 187.32 / 187.32 Lab / Micro Data Attestation: I reviewed the patient's lab results. 06/04/25 04:52 06/04/25 04:52 Labs: Laboratory Results - last 24 hr 06/04/25 04:52: WBC 9.4, RBC 3.84 L, Hgb 9.9 L, Hct 30.4 L, MCV 79.2 L, MCH 25.8 L, MCHC 32.6, RDW Std Deviation 56.0 H, RDW Coeff of Jordana 19.7 H, Plt Count 100 L, MPV 11.5, Sodium 137, Potassium 4.2, Chloride 102, Carbon Dioxide 27.6, Anion Gap 8, BUN 21 H, Creatinine 0.65 L, Estim Creat Clear Calc 153.98, Est GFR (MDRD) Non-Af 106, BUN/Creatinine Ratio 32.3 H, Glucose 112 H, Calcium 8.5 Micro: Microbiology 06/01/25 17:46 Blood Culture (Wb) - Anticubital Left Blood Culture - Preliminary Proteus mirabilis 06/01/25 18:00 Blood Culture (Wb) - Anticubital Right Blood Culture - Preliminary Gram negative yaneth 06/01/25 15:51 Urine, Random Urine Culture - Final Proteus mirabilis 06/01/25 13:51 Mucosa - Nose SARS-CoV-2, Influenza & RSV (PCR) - Final Radiography Diagnostic Testing: Radiology Impression Echocardiogram 06/01/25 21:12 Interpretation Summary Normal LV size. The left ventricular ejection fraction is 55 %. The study was technically limited. The study was technically difficult. Ordering Physician: Maryuri Coyle Referring Physician: MERLYN AMAYA Performed By: Maryana Hagen RCS Physical Exam Const alert, oriented x3 and no apparent distress Constitutional Narrative: Super morbidly obese. Resting comfortably in bed. General Appearance: cooperative HEENT normocephalic and head/scalp atraumatic Eyes PERRL, EOMs intact bilaterally and conjunctivae normal Neck supple Neck Narrative: Large neck circumference with redundant soft tissue. General: trachea midline Chest inspection of chest normal Resp normal respiratory effort Auscultation: Negative for rales, rhonchi or wheezes Cardio S1 normal heart sound and S2 normal heart sound Rate: tachycardic Rhythm: abnormal rhythm GI normal to inspection, nondistended, normoactive bowel sounds Extremity no clubbing, cyanosis or edema Skin no rashes or lesions noted Neuro CN's II-XII intact bilaterally, moves all extremities and no focal motor deficits Psych cooperative and affect normal Charges/Coding Visit Charges Inpatient E&M: 76557 Subs Hosp L2
--- NOTE | 2025-06-04 11:09 | CASEMGMT ---
Social Work SW attended ICU rounds with pt present and dgt on speaker phone. Pt states that she has spoke with and thinks that she will likely need SNF at time of discharge for ongoing therapy. SW met with pt after rounds and continued discussion regarding discharge plan. Pt confirms that if she does not improve, she will need SNF placement. SW offered to provide a list of facilities in network with her insurance provider. Pt declines need for list stating she was at [facility] previously and this is in close proximity for her to drive to. PT states if they are unable to accept, [facility] is her second choice. Referral to be made to [facility]. Pt informed that if pt does improve over the course of hospital stay, referral can be cancelled. Pt is agreeable to referral. EMY assistant speech language pathologist jose. JIMENA Monsalve
--- NOTE | 2025-06-04 11:26 | PN.HOSP_ITS ---
Reason for Visit Chief Complaint: shortness of breath Subjective Subjective Saw patient at bedside this morning. Patient was sitting in the bedside chair and appeared to have slightly more energy today compared to previous days she was conversing normally and in no acute distress. Notes that she does feel weaker than her baseline and has gone to SNF in the past, and she is agreeable to pursuing SNF placement again on this discharge. No other new concerns at 20. Objective Data Objective Data Vital Signs: Vital Signs Temp Pulse Resp BP Pulse Ox O2 Del Method O2 Flow Rate 98.9 F 107 H 18 99/66 91 Room Air 3 06/04/25 08:00 06/04/25 10:00 06/04/25 10:00 06/04/25 10:00 06/04/25 10:00 06/04/25 10:00 06/04/25 08:00 FiO2 40 06/02/25 04:00 Oxygen Flow Rate (L/min) 3 Oxygen Delivery Method Room Air Weight: 163 kg Body Mass Index (BMI) 66.1 Intake & Output: Intake and Output for Last 24 Hours 06/02/25 06/03/25 06/04/25 23:59 23:59 23:59 Intake Total 3226.25 / 3226.25 790.15 / 790.15 226.01 / 226.01 Output Total 3850 / 3850 1200 / 1200 350 / 350 Balance -623.75 / -623.75 -409.85 / -409.85 -123.99 / -123.99 Lab / Micro Data 06/04/25 04:52 06/04/25 04:52 Labs: Laboratory Results - last 24 hr 06/04/25 04:52: WBC 9.4, RBC 3.84 L, Hgb 9.9 L, Hct 30.4 L, MCV 79.2 L, MCH 25.8 L, MCHC 32.6, RDW Std Deviation 56.0 H, RDW Coeff of Jordana 19.7 H, Plt Count 100 L , MPV 11.5, Sodium 137, Potassium 4.2, Chloride 102, Carbon Dioxide 27.6, Anion Gap 8, BUN 21 H, Creatinine 0.65 L, Estim Creat Clear Calc 153.98, Est GFR (MDRD) Non-Af 106, BUN/Creatinine Ratio 32.3 H, Glucose 112 H, Calcium 8.5 Micro: Microbiology 06/01/25 17:46 Blood Culture (Wb) - Anticubital Left Blood Culture - Preliminary Proteus mirabilis 06/01/25 18:00 Blood Culture (Wb) - Anticubital Right Blood Culture - Preliminary Gram negative yaneth 06/01/25 15:51 Urine, Random Urine Culture - Final Proteus mirabilis 06/01/25 13:51 Mucosa - Nose SARS-CoV-2, Influenza & RSV (PCR) - Final Physical Exam Const alert, oriented x3 and no apparent distress Constitutional Narrative: Middle-age female, class III obesity, mildly fatigued appearing but energy improved from previous days, otherwise laying back comfortably in bed, conversing normally, in no acute distress. General Appearance: cooperative and comfortable HEENT normocephalic, head/scalp atraumatic, hearing grossly normal bilaterally, nasal mucous membranes and turbinates normal and moist oral mucous membranes Eyes PERRL, EOMs intact bilaterally and conjunctivae normal Neck full ROM Chest inspection of chest normal Resp normal respiratory effort, normal air movement, no use of accessory muscles and clear to auscultation bilaterally Cardio no murmurs and peripheral pulses 2+ throughout Cardio Narrative: Tachycardic, irregular rhythm. GI normal to inspection, nondistended, normoactive bowel sounds, soft to palpation, non-tender and non-distended Back/Spine normal ROM Extremity normal to inspection, full ROM and no pedal edema Skin no rashes or lesions noted Psych mental status grossly normal Mood & Affect: anxious Assessment & Plan Assessment/Plan (1) Sepsis: (2) UTI (urinary tract infection): PLAN: Plan Patient is a 50-year-old female who presented to [facility] ED on 06/01/2025 with fever/chills and shortness of breath. 1. Sepsis without shock secondary to UTI, improving – Medical Device following. Met sepsis criteria on admit with elevated lactic acid, RAFIA, leukocytosis and SBP less than 90 in setting of UTI. UA showed positive nitrates, 500 leukocyte esterase, 4+ bacteria. Notably had urine culture from January that grew Proteus that was sensitive to everything but Macrobid. CT abdomen pelvis with IV contrast showed a small 5 mm nonobstructing left kidney stone but otherwise no hydronephrosis or hydroureter. Was not given the full 30 cc/kg of IV fluids on admission due to concern for acute HFpEF as below, but patient had soft blood pressures on hospital day 2 so was given another 1 L of IV fluids. Has not required any pressors. Leukocytosis much improved and patient afebrile. Urine culture again grew Proteus sensitive to everything with Macrobid. Blood cultures also 2/2 positive for gram-negative rods, presumably Proteus. De-escalated to IV ceftriaxone on 06/04; will continue this while inpatient with plan to complete 7-day course of antibiotics total, stop date on 06/08. 2. Acute HFpEF with pulmonary hypertension and acute hypoxia – Follows with outpatient cardiology. Not on home oxygen. Requiring up to 2 L nasal cannula to maintain appropriate oxygen saturations. No prior diagnosis of heart failure. BNP elevated at over 6000 on admission. CTA chest with no PE and no airspace consolidation/edema or pleural effusion noted. Chest x-ray did show cardiomegaly with some central vascular congestion. Patient stable on room air at rest. Echo on 06/02 showed EF 55%, normal LV size and function, normal RV size and function, PASP 36 mmHg, no other concerning findings. Given her clinical picture, I suspect this mild degree of vascular congestion is secondary to A-fib with RVR in the setting of sepsis as above. Was given 2 doses of IV Lasix with worsening blood pressures as above, will hold off on further Lasix. Treating A-fib with RVR as below. Weaning supplemental oxygen as able. 3. A-fib with RVR – Follows with outpatient cardiology as above. Patient did have an episode of A-fib with RVR in the past when she was in the hospital for sepsis. A-fib resolved with her infection and she has had no recurrence of A-fib until this hospitalization. Presume secondary to sepsis again. Restarted home Lopressor 25 mg twice daily and added IV Lopressor 5 mg every 6 hours without much improvement. Given doses of IV digoxin and an IV Cardizem bolus without significant improvement. Given a bolus of IV amiodarone and then placed on an amiodarone drip through the morning of 06/04. Heart rate improved to the 90s to 100s but remained in A-fib. Amiodarone discontinued and increased home Lopressor to 50 mg twice daily. Will continue to monitor telemetry and can consider increasing Lopressor as needed. Notably she is not on anticoagulation due to history of GERD with PUD and gastritis as below, but echo on 06/02 showed no concern for thrombus. 4. RAFIA, resolved – Creatinine 1.85 on admit, baseline around 0.7-0.9. Presumed prerenal etiology in setting of sepsis as above as well as decreased perfusion from A-fib with RVR as above. Notably patient did receive IV contrast with CTA chest and CT abdomen pelvis on admit. Creatinine resolved back to baseline on 06/03. Continue to monitor daily BMP and urine output. 5. Left-sided nephrolithiasis – CT abdomen pelvis on admit showed a 5 mm obstructing left-sided kidney stone with no hydronephrosis noted. No need for urology consult at this time. 6. Acute on chronic debility – PT/OT/case management following. Patient with class III obesity with BMI 64 as below and has difficulty with ambulation at baseline. She has required SNF placement in the past. Has had poor therapies course to this point and plan is for SNF placement on discharge. Will likely be medically ready for discharge to SNF in the next 1 to 2 days. 7. Thrombocytopenia – Platelet count downtrended during hospitalization with nakul of 90 on 06/03. No history of heparin-induced cytopenia but notably patient was on heparin subcu for DVT prophylaxis. Given improvement in kidney function as above, switched to subcu Lovenox on 06/03. Most recent platelet count 100 on 06/04. Seems more likely secondary to sepsis as above but cannot rule out HIT, PF4 antibody ordered. Will hold off on heparin products at this time. Chronic medical conditions: – Class III obesity with suspected MALIKA: BMI 64 on admit. Complicates hospital course and care. Patient stable on 2 L nasal cannula at rest at this time. Suspect she may have some degree of obesity hypoventilation syndrome as well. Continue empiric PAP therapy at night and with naps. – Bipolar disorder: Stable. Continue home sertraline, Seroquel, and Rexulti. – Chronic low back pain with spasms: Continue home Celebrex as needed and benztropine. – COPD/asthma: Not in acute exacerbation. Continue home inhalers. – Hypothyroidism: Continue on Synthroid. – Overactive bladder: Continue home oxybutynin. – GERD with history of PUD and gastritis: Continue home PPI and famotidine. – Hypertension/hyperlipidemia: Continue home colestipol. – Tobacco dependence: Nicotine replacement therapy available per patient request. Discussed cessation on discharge. DVT prophylaxis: Lovenox CODE STATUS: Full code, verified Expected disposition: SNF, 1 to 2 days Total clinical time spent by myself addressing the patient's medical issues, reviewing all the data, and collaborating with patient's care team: 40 minutes. Charges/Coding Visit Charges Inpatient E&M: 73523 Subs Hosp L2
--- NOTE | 2025-06-04 11:38 | CASEMGMT ---
Addendum entered by Alexa Hernandez 06/04/25 14:09: [facility] has accepted. Updated therapy notes sent via [facility] with request to submit for precert. Alexa Hernandez DC Planning Asst. Original Note: Discharge Planning Referral sent via [facility] to [facility]. Alexa Hernandez DC Planning Asst.
--- NOTE | 2025-06-04 15:10 | CASEMGMT ---
Social Work [facility] has accepted pt and started precert. LEILA met with pt and family in pt room and informed. All parties agreeable to d/c plan. PASRR completed in [facility]. Plan: [facility], pending precert JIMENA Santa
[2025-06-05] VITALS (10 sets, daily range): BP systolic 101–133; BP diastolic 52–96; PULSE 96–122; RESP 15–22; TEMP 36.3–36.8; O2SAT 90–97; BMI 64.8
[2025-06-05] MEDS: Budesonide Respules 0.5 MG/2 ML AMPUL.NEB. INHALATION (06:44)
[2025-06-05 07:34] LABS: Hematocrit 32.5 % (37-47); Hemoglobin 10.2 g/dL (12.0-15.0); Mean Corp Hgb Conc 31.4 g/dL (32-36); Mean Corpuscular Volume 79.9 fL (81-99); Mean Platelet Vol. 11.5 fl (6.2-12.0); POSITIVE COUNT YES; Platelet Count 96 K/mm3 (150-450); RBC Distribution Width CV 19.6 % (11.6-14.6); RBC Distribution Width SD 57.1 fl (35.1-43.9); Red Blood Count 4.07 M/mm3 (4.2-5.4); White Blood Count 9.4 K/mm3 (4.4-11.0)
--- NOTE | 2025-06-05 07:35 | PCM.PN.INT ---
Assessment & Plan Assessment/Plan (1) Sepsis: PLAN: Plan RECOMMENDATIONS: 1. Continue antimicrobials to complete 7 days of therapy. 2. Continue beta-yvonne at current dose. 3. Continue Pulmicort and as needed bronchodilator therapy. 4. Continue to wean supplemental oxygen to maintain saturations at or above 90%. 5. Encourage incentive spirometer use and mobilize patient as tolerated. 6. Empiric BiPAP therapy with naps and nightly. 7. Will sign off at this time from a critical care perspective. Please call with any additional questions. IMPRESSIONS: 1. Sepsis The patient presented to the hospital with shortness of breath and hypotension in the setting of gram-negative sepsis with concern for Proteus urinary tract source of infection with secondary hematogenous spread. The patient remains hemodynamically stable. Recommend continuing antimicrobials to complete 7 days of therapy. 2. Heart failure with preserved ejection fraction At the present time, the patient's respiratory status is stable. Therefore, hold off on additional diuretics. Continue supportive care as noted above. 3. Atrial fibrillation with RVR Heart rate appears adequately controlled on her beta-yvonne regimen. Continue current management. Echocardiogram was unremarkable, with the exception of a pulmonary artery systolic pressure that was estimated to be 36 mmHg. 4. Acute kidney injury Resolved. Most likely prerenal in etiology in the setting of sepsis. Continue to monitor urine output. No current indication for renal replacement therapy. 5. Super morbid obesity/bipolar disorder/questionable COPD/suspected sleep apnea and alveolar hypoventilation secondary to obesity Complicates care, management, recovery and prognosis. Recommend continuing empiric PAP therapy with naps and nightly. The patient would ultimately benefit from establishing care with a pulmonary provider on an outpatient basis. This note was generated with [employer] dictation software. It may contain incorrect words, spelling, and punctuation that were not noted in checking the note before signing. Subjective Subjective The patient was seen and examined at the bedside this morning. Events from the last 24 hours have been reviewed. The patient is currently afebrile, hemodynamically stable and maintaining appropriate oxygen saturations on 2 L/min via nasal cannula. While the patient remains in atrial fibrillation, her heart rate is under much better control. White blood cell count remains normal. Hemoglobin and platelet count are stable. Objective Data Objective Data The patient's most recent lab work, culture data and imaging studies have all been personally reviewed. Surface echocardiogram demonstrated normal LV size and function with an ejection fraction of 55%. Pulmonary artery systolic pressure was estimated to be 36 mmHg. Urine cultures currently demonstrating growth of Proteus mirabilis. Blood cultures were positive for Proteus mirabilis. Vital Signs: Vital Signs Temp Pulse Resp BP Pulse Ox O2 Del Method O2 Flow Rate 97.3 F L 102 H 19 H 101/52 L 95 Nasal Cannula 2 06/05/25 05:51 06/05/25 06:45 06/05/25 06:45 06/05/25 05:51 06/05/25 06:45 06/05/25 06:45 06/05/25 06:45 FiO2 40 06/02/25 04:00 Oxygen Flow Rate (L/min) 2 Oxygen Delivery Method Nasal Cannula Weight: 352 lb 8.306 oz Body Mass Index (BMI) 64.8 Intake & Output: Intake and Output for Last 24 Hours 06/03/25 06/04/25 06/05/25 23:59 23:59 23:59 Intake Total 790.15 / 790.15 751.01 / 751.01 Output Total 1200 / 1200 1100 / 1100 750 / 750 Balance -409.85 / -409.85 -348.99 / -348.99 -750 / -750 Lab / Micro Data Attestation: I reviewed the patient's lab results. 06/05/25 07:08 06/04/25 04:52 Labs: Laboratory Results - last 24 hr 06/04/25 04:52: WBC 9.4, RBC 3.84 L, Hgb 9.9 L, Hct 30.4 L, MCV 79.2 L, MCH 25.8 L, MCHC 32.6, RDW Std Deviation 56.0 H, RDW Coeff of Jordana 19.7 H, Plt Count 100 L, MPV 11.5, Sodium 137, Potassium 4.2, Chloride 102, Carbon Dioxide 27.6, Anion Gap 8, BUN 21 H, Creatinine 0.65 L, Estim Creat Clear Calc 153.98, Est GFR (MDRD) Non-Af 106, BUN/Creatinine Ratio 32.3 H, Glucose 112 H, Calcium 8.5 Micro: Microbiology 06/01/25 18:00 Blood Culture (Wb) - Anticubital Right Blood Culture - Preliminary Gram negative yaneth 06/01/25 17:46 Blood Culture (Wb) - Anticubital Left Blood Culture - Preliminary Proteus mirabilis 06/01/25 15:51 Urine, Random Urine Culture - Final Proteus mirabilis 06/01/25 13:51 Mucosa - Nose SARS-CoV-2, Influenza & RSV (PCR) - Final Radiography Diagnostic Testing: Radiology Impression Echocardiogram 06/01/25 21:12 Interpretation Summary Normal LV size. The left ventricular ejection fraction is 55 %. The study was technically limited. The study was technically difficult. Ordering Physician: Maryuri Coyle Referring Physician: MERLYN AMAYA Performed By: Maryana Hagen RCS Physical Exam Const alert, oriented x3 and no apparent distress Constitutional Narrative: Super morbidly obese. Resting comfortably in bed. General Appearance: cooperative HEENT normocephalic and head/scalp atraumatic Eyes PERRL, EOMs intact bilaterally and conjunctivae normal Neck supple Neck Narrative: Large neck circumference with redundant soft tissue. General: trachea midline Chest inspection of chest normal Resp normal respiratory effort Auscultation: Negative for rales, rhonchi or wheezes Cardio S1 normal heart sound and S2 normal heart sound Rhythm: abnormal rhythm GI normal to inspection, nondistended, normoactive bowel sounds Extremity no clubbing, cyanosis or edema Skin no rashes or lesions noted Neuro CN's II-XII intact bilaterally, moves all extremities and no focal motor deficits Psych cooperative and affect normal Charges/Coding Visit Charges Inpatient E&M: 44591 Subs Hosp L2
[2025-06-05 07:36] LABS: Scan Indicated on CBC? Y/N YES- FLAGS NOTED
[2025-06-05 08:35] LABS: Anion Gap 7 (5-15); BUN 16 mg/dL (4-19); BUN/Creat Ratio 27.2 RATIO (10-20); Calcium,Total 9.0 mg/dL (7.6-11.0); Carbon Dioxide 29.7 mmol/L (21.0-32.0); Chloride 102 mmol/L (98-108); Estimated Creatinine Clearance 173.31 ml/min (50-250); Glucose 109 mg/dL (70-99); Potassium 4.3 mmol/L (3.3-5.1)
[2025-06-05 08:55] LABS: Pro- Brain NATRIURETIC PEPTIDE 2512 pg/mL (<=900)
[2025-06-05] MEDS: BREXPIPRAZOLE 1 MG TABLET PO (08:57)
--- NOTE | 2025-06-05 09:41 | PCM.PN.HOSP ---
Reason for Visit Chief Complaint: shortness of breath Objective Data Objective Data Vital Signs: Vital Signs Temp Pulse Resp BP Pulse Ox O2 Del Method O2 Flow Rate 97.6 F L 122 H 18 109/54 L 90 Nasal Cannula 3 06/05/25 08:45 06/05/25 08:57 06/05/25 08:45 06/05/25 08:45 06/05/25 08:45 06/05/25 08:45 06/05/25 08:45 FiO2 40 06/02/25 04:00 Oxygen Flow Rate (L/min) 3 Oxygen Delivery Method Nasal Cannula Weight: 159.9 kg Body Mass Index (BMI) 64.8 Intake & Output: Intake and Output for Last 24 Hours 06/03/25 06/04/25 06/05/25 23:59 23:59 23:59 Intake Total 790.15 / 790.15 751.01 / 751.01 50 / 50 Output Total 1200 / 1200 1100 / 1100 750 / 750 Balance -409.85 / -409.85 -348.99 / -348.99 -700 / -700 Lab / Micro Data 06/05/25 07:08 06/05/25 07:08 Labs: Laboratory Results - last 24 hr 06/05/25 07:08: WBC 9.4, RBC 4.07 L, Hgb 10.2 L, Hct 32.5 L, MCV 79.9 L, MCH 25.1 L, MCHC 31.4 L, RDW Std Deviation 57.1 H, RDW Coeff of Jordana 19.6 H, Plt Count 96 L, MPV 11.5, Sodium 139, Potassium 4.3, Chloride 102, Carbon Dioxide 29.7, Anion Gap 7, BUN 16, Creatinine 0.57 L, Estim Creat Clear Calc 173.31, Est GFR (MDRD) Non-Af 110, BUN/Creatinine Ratio 27.2 H, Glucose 109 H, Calcium 9.0, NT pro BNP II 2512 H Micro: Microbiology 06/01/25 17:46 Blood Culture (Wb) - Anticubital Left Blood Culture - Final Proteus mirabilis 06/01/25 18:00 Blood Culture (Wb) - Anticubital Right Blood Culture - Final Gram negative yaneth 06/01/25 15:51 Urine, Random Urine Culture - Final Proteus mirabilis 06/01/25 13:51 Mucosa - Nose SARS-CoV-2, Influenza & RSV (PCR) - Final
--- NOTE | 2025-06-05 12:02 | CASEMGMT ---
[facility] has obtained auth to admit. Auth is good through 06/07. SW updated. Alexa Hernandez DC Planning Asst
--- NOTE | 2025-06-05 12:38 | CASEMGMT ---
Social Work Precert has been obtained for pt to discharge to [facility]. Physician notified that precert is good through 06/07. SW met with pt and informed that precert has been secured. Pt is agreeable to placement at [facility] when she is medically ready. JIMENA Santa
--- NOTE | 2025-06-05 13:19 | DS.PCM_ITS ---
Providers Date of Admission: 06/01/25 Date of Discharge: 06/05/25 Primary Care Physician: SHILPA Fleming Consultations 06/01/25 21:14 Consult: Tool Operator / Pulmonary Medicine Routine Consulting Provider: Intensivists/Pulmonary Med Reason for Consult: sepsis due to UTI, heart failure EMERGENT Consult: No MD Notified: Yes Date Notified: 06/01/25 Time Notified: 21:34 Method of Notification: Text Reason For Visit: SEPSIS, UTI, ACUTE HEART FAILURE Diagnosis Discharge Diagnosis (1) Sepsis: Status: Acute Code(s): A41.9 - Sepsis, unspecified organism Medications at Discharge Home Medications levothyroxine 50 mcg tablet (Unithroid) 50 mcg PO DAILY hypothyroid 05/02/15 albuterol sulfate 90 mcg/actuation aerosol inhaler 2 puff inhalation Q4H PRN PRN ASTHMA 05/06/21 fluticasone propionate 110 mcg/actuation HFA aerosol inhaler (Flovent HFA) 2 inh inhalation BID breathing 05/06/21 glucosamine 750 sb-porvih-tdy 2-C 30 mg-D3 1,000 unit-kathrin 1 mg tablet (Kxazfnapzqy-Kvflhgyrmfk-VDQ + vitD) 1 tab PO DAILY dietary supplement for joint health 05/06/21 montelukast 10 mg tablet 10 mg PO DAILY asthma 05/06/21 multivitamin 1 tab PO DAILY dietary supplement 05/06/21 pantoprazole 40 mg tablet,delayed release 40 mg PO BID gastritis 05/06/21 benztropine 0.5 mg tablet 0.5 mg PO BID involuntary muscle movements 04/26/23 hydroxyzine HCl 25 mg tablet 25 mg PO 4X/DAY PRN anxiety 04/26/23 quetiapine 50 mg tablet 50 mg PO QHS bipolar disorder 04/26/23 colestipol 1 gram tablet 1 g PO BID #180 tabs 06/19/23 brexpiprazole 1 mg tablet (Rexulti) 1 mg PO DAILY antipsychotic medication for mood 06/02/25 dicyclomine 10 mg capsule 10 mg PO .qid abdominal pain 06/02/25 famotidine 40 mg tablet 40 mg PO .at bedtime gastritis 06/02/25 methocarbamol 750 mg tablet 750 mg PO TID PRN PRN pain 06/02/25 oxybutynin chloride 5 mg tablet 5 mg PO TID overactive bladder 06/02/25 pregabalin 75 mg capsule 75 mg PO TID neuropathy pain in legs 06/02/25 sertraline 25 mg tablet 25 mg PO DAILY depression 06/02/25 apixaban 5 mg tablet (Eliquis) 5 mg PO BID 30 days #60 tabs 06/05/25 metoprolol tartrate 50 mg tablet 50 mg PO BID 30 days #60 tabs 06/05/25 sulfamethoxazole 800 mg-trimethoprim 160 mg tablet (Bactrim DS) 1 tab PO BID 3 days #6 tabs 06/05/25 Hospital Course Operations None Procedures EKG, Transthoracic echo and - (Chest x-ray, CTA chest, CT abdomen pelvis) Summary of Care Provided Minutes Spent on Discharge: 40 Hospital Course: Patient is a 50-year-old female who presented to [facility] ED on 06/01/2025 with fever/chills and shortness of breath. Hospital course as noted below. Patient discharged to SNF in stable condition on 06/05. 1. Sepsis without shock secondary to UTI, improved – Tool Operator followed. Met sepsis criteria on admit with elevated lactic acid, RAFIA, leukocytosis and SBP less than 90 in setting of UTI. UA showed positive nitrates, 500 leukocyte esterase, 4+ bacteria. Notably had urine culture from January that grew Proteus that was sensitive to everything but Macrobid. CT abdomen pelvis with IV contrast showed a small 5 mm nonobstructing left kidney stone but otherwise no hydronephrosis or hydroureter. Was not given the full 30 cc/kg of IV fluids on admission due to concern for acute HFpEF as below, but patient had soft blood pressures on hospital day 2 so was given another 1 L of IV fluids. Has not required any pressors. Leukocytosis much improved and patient afebrile. Urine culture again grew Proteus sensitive to everything with Macrobid. Blood cultures also 2/2 positive for Proteus. De-escalated to IV ceftriaxone on 06/04. Discharged on p.o. Bactrim to complete 7-day course of antibiotics total, stop date 06/08. 2. Acute HFpEF with pulmonary hypertension and acute hypoxia – Follows with outpatient cardiology. Not on home oxygen. Requiring up to 4 L nasal cannula to maintain appropriate oxygen saturations. No prior diagnosis of heart failure. BNP elevated at over 6000 on admission. CTA chest with no PE and no airspace consolidation/edema or pleural effusion noted. Chest x-ray did show cardiomegaly with some central vascular congestion. Patient stable on room air at rest. Echo on 06/02 showed EF 55%, normal LV size and function, normal RV size and function, PASP 36 mmHg, no other concerning findings. Given her clinical picture, I suspect this mild degree of vascular congestion is secondary to A-fib with RVR in the setting of sepsis as above. Was given 2 doses of IV Lasix with worsening blood pressures as above, held off on further Lasix. Treated A-fib with RVR as below. BNP much improved at 2512 on day of discharge and patient with decreased oxygen requirements then on admission. However, I suspect patient will require submental oxygen on discharge given history of pulmonary hypertension and obesity with some degree of obesity hypoventilation syndrome. 3. A-fib with RVR – Follows with outpatient cardiology as above. Patient did have an episode of A-fib with RVR in the past when she was in the hospital for sepsis. A-fib resolved with her infection and she had no recurrence of A-fib until this hospitalization. Presumed secondary to sepsis again. Unfortunately patient remained in A-fib throughout hospitalization despite multiple medications utilized for treatment including IV Cardizem, IV digoxin and IV amiodarone. Heart rate stable in the 90s to 100s on p.o. Lopressor 50 mg twice daily on discharge. Discussed with patient and given her persistent A-fib, I recommended that she start a blood thinner on discharge. Has history of gastritis with PUD as below but this was a few years ago and patient is been doing well since then on medication. Will start Eliquis 5 mg twice daily on discharge. 4. RAFIA, resolved – Creatinine 1.85 on admit, baseline around 0.7-0.9. Presumed prerenal etiology in setting of sepsis as above as well as decreased perfusion from A-fib with RVR as above. Notably patient did receive IV contrast with CTA chest and CT abdomen pelvis on admit. Creatinine resolved back to baseline on 06/03. 5. Left-sided nephrolithiasis – CT abdomen pelvis on admit showed a 5 mm obstructing left-sided kidney stone with no hydronephrosis noted. No need for urology consult. 6. Acute on chronic debility – PT/OT/case management followed. Patient with class III obesity with BMI 64 as below and has difficulty with ambulation at baseline. She has required SNF placement in the past. Had poor therapy scores during hospitalization. Stable for discharge to SNF on 06/05. 7. Thrombocytopenia, stable – Platelet count downtrended during hospitalization with nakul of 90 on 06/03. No history of heparin-induced cytopenia but notably patient was on heparin subcu for DVT prophylaxis. Given improvement in kidney function as above, switched to subcu Lovenox on 06/03. Most recent platelet count 100 on 06/04. Seems more likely secondary to sepsis as above but cannot rule out HIT, PF4 antibody ordered. Platelet count remained stable at 90-100 on discharge. Recommend repeat CBC in 5 to 7 days to ensure platelet count remains stable. Chronic medical conditions: – Class III obesity with suspected MALIKA: BMI 64 on admit. Complicated hospital course and care. Patient stable on 2 L nasal cannula at rest at this time. Suspect she may have some degree of obesity hypoventilation syndrome as well. Utilized empiric PAP therapy at night and with naps. Patient will need sleep study shortly after discharge. – Bipolar disorder: Stable. Continue home sertraline, Seroquel, and Rexulti. – Chronic low back pain with spasms: Continue home Celebrex as needed and benztropine. – COPD/asthma: Not in acute exacerbation. Continue home inhalers. – Hypothyroidism: Continue on Synthroid. – Overactive bladder: Continue home oxybutynin. – GERD with history of PUD and gastritis: Continue home PPI and famotidine. – Hypertension/hyperlipidemia: Continue home colestipol. – Tobacco dependence: Discussed cessation on discharge. Total clinical time spent by myself addressing the patient's medical issues, reviewing all the data, and collaborating with patient's care team: 40 minutes. Physical Exam Const alert, oriented x3 and no apparent distress Constitutional Narrative: Middle-age female, class III obesity, mildly fatigued appearing but energy improved from previous days, otherwise laying back comfortably in bed, conversing normally, in no acute distress. General Appearance: cooperative and comfortable HEENT normocephalic, head/scalp atraumatic, hearing grossly normal bilaterally, nasal mucous membranes and turbinates normal and moist oral mucous membranes Eyes PERRL, EOMs intact bilaterally and conjunctivae normal Neck full ROM Chest inspection of chest normal Resp normal respiratory effort, normal air movement, no use of accessory muscles and clear to auscultation bilaterally Cardio no murmurs and peripheral pulses 2+ throughout Cardio Narrative: A-fib, rate controlled. GI normal to inspection, nondistended, normoactive bowel sounds, soft to palpation, non-tender and non-distended Back/Spine normal ROM Extremity normal to inspection, full ROM and no pedal edema Skin no rashes or lesions noted Psych mental status grossly normal Weight / BMI Weight Weight: 159.9 kg Body Mass Index (BMI) 64.8 ABG / Lab / Microbiology Data 06/05/25 07:08 06/05/25 07:08 Laboratory: Laboratory Results - last 24 hr 06/05/25 07:08: WBC 9.4, RBC 4.07 L, Hgb 10.2 L, Hct 32.5 L, MCV 79.9 L, MCH 25.1 L, MCHC 31.4 L, RDW Std Deviation 57.1 H, RDW Coeff of Jordana 19.6 H, Plt Count 96 L, MPV 11.5, Sodium 139, Potassium 4.3, Chloride 102, Carbon Dioxide 29.7, Anion Gap 7, BUN 16, Creatinine 0.57 L, Estim Creat Clear Calc 173.31, Est GFR (MDRD) Non-Af 110, BUN/Creatinine Ratio 27.2 H, Glucose 109 H, Calcium 9.0, NT pro BNP II 2512 H Microbiology: Microbiology 06/01/25 17:46 Blood Culture (Wb) - Anticubital Left Blood Culture - Final Proteus mirabilis 06/01/25 18:00 Blood Culture (Wb) - Anticubital Right Blood Culture - Final Gram negative yaneth 06/01/25 15:51 Urine, Random Urine Culture - Final Proteus mirabilis 06/01/25 13:51 Mucosa - Nose SARS-CoV-2, Influenza & RSV (PCR) - Final D/C Instructions DC O2, CPAP, BIPAP Needs Home O2 Discharge instructions: No Meaningful Use Info Meaningful Use Meaningful Use Diagnoses (Choose all that apply): None applicable Discharge Plan Admission Admit Date/Time: 06/01/25 19:14 Primary Reason for Your Visit: Shortness of breath Attending Provider: Dao Rosenbaum Primary Care Provider: Annette Samano NP Consulting Providers: Maryuri Coyle Discharge Orders/Prescriptions Prescriptions: New metoprolol tartrate 50 mg Tablet 50 mg PO BID 30 Days Qty: 60 0RF Eliquis 5 mg tablet 5 mg PO BID 30 Days Qty: 60 0RF sulfamethoxazole-trimethoprim [Bactrim DS] 800-160 mg tablet 1 tab PO BID 3 Days Qty: 6 0RF Continued quetiapine 50 mg tablet 50 mg PO QHS Rx Instructions: take 2 tablets by mouth every night at bedtime benztropine 0.5 mg tablet 0.5 mg PO BID levothyroxine [Unithroid] 50 MCG tablet 50 mcg PO DAILY Patient Comments: thyroid pill multivitamin Tablet 1 tab PO DAILY pantoprazole 40 mg tablet,delayed release (DR/EC) 40 mg PO BID Patient Comments: take 1 tablet by mouth twice a day montelukast 10 mg tablet 10 mg PO DAILY albuterol sulfate 90 mcg/actuation HFA aerosol inhaler 2 puff INHALATION Q4H PRN PRN (Reason: ASTHMA) Patient Comments: inhale 2 puffs by mouth and INTO THE LUNGS every 4 to 6 hours if needed for shortness of breath fluticasone propionate [Flovent HFA] 110 mcg/actuation HFA aerosol inhaler 2 inh INHALATION BID Patient Comments: inhale 2 puffs by mouth twice a day Zslozuct-Hynbep-QRG with vit D 750-30-1,000-1 cp-ew-npwe-mg Tablet 1 tab PO DAILY hydroxyzine HCl 25 mg tablet 25 mg PO 4X/DAY PRN (Reason: anxiety) Patient Comments: take 1 tablet by mouth four times a day if needed pregabalin 75 mg capsule 75 mg PO TID methocarbamol 750 mg tablet 750 mg PO TID PRN PRN (Reason: pain) sertraline 25 mg tablet 25 mg PO DAILY oxybutynin chloride 5 mg tablet 5 mg PO TID Rexulti 1 mg tablet 1 mg PO DAILY famotidine 40 mg tablet 40 mg PO .at bedtime dicyclomine 10 mg capsule 10 mg PO .qid colestipol 1 gram tablet 1 g PO BID Qty: 180 3RF Discontinued oxybutynin chloride [Ditropan XL] 5 mg tablet extended release 24hr 5 mg PO DAILY Rexulti 0.25 mg tablet 0.25 mg PO DAILY gabapentin 600 mg tablet 600 mg PO Q6H Patient Comments: TAKE 1 TABLET BY MOUTH EVERY 6 HOURS methocarbamol 500 mg tablet 500 mg PO Q6H PRN (Reason: pain) bismuth subsalicylate [Pepto-Bismol] 262 mg Tablet,Chewable 2 tab PO Q30M PRN (Reason: Diarrhea) celecoxib 100 mg capsule 100 mg PO BID PRN PRN (Reason: pain) clopidogrel 75 mg tablet 75 mg PO DAILY Qty: 90 3RF metoprolol tartrate 25 mg tablet 25 mg PO BID Qty: 180 3RF Referrals / Follow Up: Annette Samano NP, ASSOCIATE MARKETING MANAGER-C [Primary Care Provider, Family Practice] Disposition Disposition (needs filled in before D/C Order can be placed): Half-Way Facility Charges/Coding Visit Charges Inpatient E&M: 55551 Disch Hosp >30min
--- NOTE | 2025-06-05 14:17 | CASEMGMT ---
Social Work Per physician, pt is ready for discharge today. DC assistant project engineer updated and to complete discharge. Disposition: [facility], Skilled Level of Care JIMENA Monsalve
[2025-06-05] MEDS: Lidocaine 2% Viscous15 ML UDC 5 ML PO (14:34)
--- NOTE | 2025-06-05 14:34 | PHA.DC_ITS ---
Pharmacy [place] Med Reconciliation Pharmacy Service has performed discharge medication reconciliation for this patient. The patient's discharge medication list was reviewed for discrepancies and discrepancies were resolved. Medications at Discharge Home Medications levothyroxine 50 mcg tablet (Unithroid) 50 mcg PO DAILY hypothyroid 05/02/15 albuterol sulfate 90 mcg/actuation aerosol inhaler 2 puff inhalation Q4H PRN PRN ASTHMA 05/06/21 fluticasone propionate 110 mcg/actuation HFA aerosol inhaler (Flovent HFA) 2 inh inhalation BID breathing 05/06/21 glucosamine 750 wa-aifxfu-qwr 2-C 30 mg-D3 1,000 unit-kathrin 1 mg tablet (Ntwlegykofi-Fcdetyryknm-ISH + vitD) 1 tab PO DAILY dietary supplement for joint health 05/06/21 montelukast 10 mg tablet 10 mg PO DAILY asthma 05/06/21 multivitamin 1 tab PO DAILY dietary supplement 05/06/21 pantoprazole 40 mg tablet,delayed release 40 mg PO BID gastritis 05/06/21 benztropine 0.5 mg tablet 0.5 mg PO BID involuntary muscle movements 04/26/23 hydroxyzine HCl 25 mg tablet 25 mg PO 4X/DAY PRN anxiety 04/26/23 quetiapine 50 mg tablet 50 mg PO QHS bipolar disorder 04/26/23 colestipol 1 gram tablet 1 g PO BID #180 tabs 06/19/23 brexpiprazole 1 mg tablet (Rexulti) 1 mg PO DAILY antipsychotic medication for mood 06/02/25 dicyclomine 10 mg capsule 10 mg PO .qid abdominal pain 06/02/25 famotidine 40 mg tablet 40 mg PO .at bedtime gastritis 06/02/25 methocarbamol 750 mg tablet 750 mg PO TID PRN PRN pain 06/02/25 oxybutynin chloride 5 mg tablet 5 mg PO TID overactive bladder 06/02/25 pregabalin 75 mg capsule 75 mg PO TID neuropathy pain in legs 06/02/25 sertraline 25 mg tablet 25 mg PO DAILY depression 06/02/25 apixaban 5 mg tablet (Eliquis) 5 mg PO BID 30 days #60 tabs 06/05/25 metoprolol tartrate 50 mg tablet 50 mg PO BID 30 days #60 tabs 06/05/25 sulfamethoxazole 800 mg-trimethoprim 160 mg tablet (Bactrim DS) 1 tab PO BID 3 d ays #6 tabs 06/05/25
--- NOTE | 2025-06-05 14:37 | CASEMGMT ---
Discharge Planning Discharge orders, signed med list, and transport time sent via [facility] to [facility]. Physicians will transport pt by wheelchair at 3p. Nursing, SW, pt, and her daughter (Kalani) updated. Alexa Hernandez DC Planning Asst.
--- NOTE | 2025-06-05 15:24 | NURSING ---
Attempted to call report to [facility] twice, no answer
[2025-06-07 16:09] LABS: Heparin-Induced Plt Ab 0.104 OD (0.000-0.400)
== END 2025-06-05 15:25 | disposition skilled nursing facility (03) | DRG 720 ==
LOC: ED 13:29 → ICU 20:24
PROVIDERS: Internal Medicine Critical Care Medicine; Admitting Provider Student in an Organized Health Care Education/Training Program; Emergency Provider Surgery; PCP Nurse Practitioner Family; Visit Provider Hospitalist
DX: A41.59 Other Gram-negative sepsis (principal); I50.31 Acute diastolic (congestive) heart failure; I27.20 Pulmonary hypertension, unspecified; Z68.44 Body mass index [BMI] 60.0-69.9, adult; E66.2 Morbid (severe) obesity with alveolar hypoventilation; I11.0 Hypertensive heart disease with heart failure; D69.59 Other secondary thrombocytopenia; J44.9 Chronic obstructive pulmonary disease, unspecified; F31.9 Bipolar disorder, unspecified; E03.9 Hypothyroidism, unspecified; I48.91 Unspecified atrial fibrillation; N17.9 Acute kidney failure, unspecified; E78.5 Hyperlipidemia, unspecified; F41.9 Anxiety disorder, unspecified; K21.9 Gastro-esophageal reflux disease without esophagitis; F17.210 Nicotine dependence, cigarettes, uncomplicated; M62.830 Muscle spasm of back; K29.50 Unspecified chronic gastritis without bleeding; N39.0 Urinary tract infection, site not specified; B96.4 Proteus (mirabilis) (morganii) as the cause of diseases classified elsewhere; G89.29 Other chronic pain; E66.813 Obesity, class 3; N20.0 Calculus of kidney; R09.02 Hypoxemia; N32.81 Overactive bladder; Z79.51 Long term (current) use of inhaled steroids; Z79.890 Hormone replacement therapy; Z79.899 Other long term (current) drug therapy
CPT/HCPCS: 36415; 71046; 71275; 74177; 80048; 80053; 81001; 82803; 83605; 83690; 83735; 83880; 84100; 84484; 85025; 85027; 85610; 85730; 86022; 87040; 87077; 87086; 87088; 87186; 87631; 92526; 92610; 93005; 93306; 94002; 94640; 94762; 97162; 97166; 97530; 97535; 99285; 99406; Q9967; A4216; J1938; J2405